=== PATIENT | female | born 1950 | race American Indian/Alaskan Native ===

== ENCOUNTER 2021-02-13 12:46 | Inpatient (IN) | payer MEDICARE ==
--- NOTE | 2021-02-13 13:11 | Emergency Department Report ---
HPI - General Chief Complaint: Altered Mental Status PUI?: Yes Time Seen by Provider: 02/13/21 12:58 - HPI HPI: 70-year-old female with unknown past medical history brought in by EMS after she was found unresponsive by her family. According to the EMS report, she was found foaming at the mouth and was unresponsive. When EMS arrived, the patient had shallow breathing and was noted to have constricted pupils. Her initial oxygen saturation was 50% but with bagging improved to the 80s with the highest sat being 86%. She was given 2 mg of IV Narcan with no response whatsoever. They continued bagging the patient and brought her to our emergency department her fingerstick blood glucose for EMS was 213. She was noted to have normal heart rate and blood pressure. Further details of the HPI are severely limited due to the patient's current clinical condition. ED Past Medical Hx - Medications Home Medications: Home Medications Medication Instructions Recorded Confirmed Last Taken Type Insulin NPH Hum/Reg Insulin Hm See Protocol SQ DAILY 02/13/21 02/13/21 Unknown History [Novolin 70-30 100 Unit/ml Vial] metFORMIN [Glucophage] 500 mg PO TID 02/13/21 02/13/21 Unknown History ED Review of Systems ROS: Stated complaint: UNRESPONSIVE/AMS Other details as noted in HPI Comment: Unobtainable due to pts medical conditions Physical Exam - Physical Exam Physical Exam: GENERAL: Morbidly obese female. Unresponsive and obtunded HEAD: Normocephalic. No obvious signs of trauma. ENT: Dry mucous membranes. Bag valve mask applied EYES: Pupils are constricted bilaterally but remain reactive. NECK: Trachea is midline. LUNGS: Bilateral breath sounds with [id number] ventilation. There are scattered rales throughout. CARDIOVASCULAR: Regular rate and rhythm. 3/6 systolic murmur VASCULAR: Cap refill < 2 seconds ABDOMEN: Abdomen is soft and nondistended. There is central adiposity SKIN: Skin is warm and dry NEURO: Patient is obtunded and unresponsive even to pain. GCS is 3 MUSCULOSKELETAL: No obvious deformities. ED Medical Decision Making - Lab Data Result diagrams: 02/13/21 16:27 02/13/21 13:36 Lab Results 02/13/21 02/13/21 02/13/21 Range/Units 13:28 13:28 13:28 WBC 5.8 (4.5-11.0) K/mm3 RBC 4.67 (3.65-5.03) M/mm3 Hgb 11.8 (10.1-14.3) gm/dl Hct 37.0 (30.3-42.9) % MCV 79 (79-97) fl MCH 25 L (28-32) pg MCHC 32 (30-34) % RDW 15.7 H (13.2-15.2) % Plt Count 184 (140-440) K/mm3 Lymph % (Auto) 5.9 L (13.4-35.0) % Carbon % (Auto) 4.5 (0.0-7.3) % Eos % (Auto) 0.0 (0.0-4.3) % Baso % (Auto) 0.3 (0.0-1.8) % Lymph # (Auto) 0.3 L (1.2-5.4) K/mm3 Carbon # (Auto) 0.3 (0.0-0.8) K/mm3 Eos # (Auto) 0.0 (0.0-0.4) K/mm3 Baso # (Auto) 0.0 (0.0-0.1) K/mm3 Seg Neutrophils % 89.3 H (40.0-70.0) % Seg Neutrophils # 5.2 (1.8-7.7) K/mm3 PT 15.0 H (12.2-14.9) Sec. INR 1.13 (0.87-1.13) APTT 23.8 L (24.2-36.6) Sec. D-Dimer 478.95 H (0-234) ng/mlDDU ABG pH (7.320-7.450) POC ABG pCO2 (32.0-48.0) mmHg POC ABG pO2 (83-108) mmHg POC ABG HCO3 ABG O2 Saturation (0-100) POC ABG Base Excess ABG Hemoglobin (12.0-17.5) ABG Oxyhemoglobin (94-98) ABG Methemoglobin (0.0-1.5) ABG Sodium (136.0-145.0) mmol/L ABG Potassium (3.40-4.50) mmol/L ABG Chloride (98-107) mmol/L ABG Glucose (65-95) mg/dL Carboxyhemoglobin (0.5-1.5) FiO2 % Sodium 139 (137-145) mmol/L Potassium 5.1 H (3.6-5.0) mmol/L Chloride 95.7 L (98-107) mmol/L Carbon Dioxide 23 (22-30) mmol/L Anion Gap 25 mmol/L BUN 36 H (7-17) mg/dL Creatinine 2.0 H (0.6-1.2) mg/dL Estimated GFR 30 ml/min BUN/Creatinine Ratio 18 % Glucose 172 H (65-100) mg/dL Lactic Acid (0.7-2.0) mmol/L Calcium 7.5 L (8.4-10.2) mg/dL Magnesium (1.7-2.3) mg/dL Ferritin (10.0-200.0) ng/mL Total Bilirubin 0.40 (0.1-1.2) mg/dL Direct Bilirubin < 0.2 (0-0.2) mg/dL Indirect Bilirubin 0.2 mg/dL AST 81 H (5-40) units/L ALT 25 (7-56) units/L Alkaline Phosphatase 42 (35-129) units/L Ammonia (25-60) umol/L Lactate Dehydrogenase (91-180) units/L Total Creatine Kinase 1572 H (30-135) units/L Troponin T 0.020 (0.00-0.029) ng/mL C-Reactive Protein (0.00-1.30) mg/dL NT-Pro-B Natriuret Pep (0-900) pg/mL Total Protein 8.1 (6.3-8.2) g/dL Albumin 3.4 L (3.9-5) g/dL Albumin/Globulin Ratio 0.7 % Lipase (13-60) units/L Procalcitonin (<0.15) ng/mL TSH (0.270-4.200) mlU/mL Arterial Blood Glucose (65-95) mg/dL Arterial Blood Ionized Calcium (4.6-5.3) mg/dL Salicylates (2.8-20.0) mg/dL Acetaminophen (10.0-30.0) ug/mL Plasma/Serum Alcohol (0-0.07) % Blood Type Antibody Screen 08/22/21 08/22/21 08/22/21 Range/Units 13:28 13:28 13:28 WBC (4.5-11.0) K/mm3 RBC (3.65-5.03) M/mm3 Hgb (10.1-14.3) gm/dl Hct (30.3-42.9) % MCV (79-97) fl MCH (28-32) pg MCHC (30-34) % RDW (13.2-15.2) % Plt Count (140-440) K/mm3 Lymph % (Auto) (13.4-35.0) % Carbon % (Auto) (0.0-7.3) % Eos % (Auto) (0.0-4.3) % Baso % (Auto) (0.0-1.8) % Lymph # (Auto) (1.2-5.4) K/mm3 Carbon # (Auto) (0.0-0.8) K/mm3 Eos # (Auto) (0.0-0.4) K/mm3 Baso # (Auto) (0.0-0.1) K/mm3 Seg Neutrophils % (40.0-70.0) % Seg Neutrophils # (1.8-7.7) K/mm3 PT (12.2-14.9) Sec. INR (0.87-1.13) APTT (24.2-36.6) Sec. D-Dimer (0-234) ng/mlDDU ABG pH (7.320-7.450) POC ABG pCO2 (32.0-48.0) mmHg POC ABG pO2 (83-108) mmHg POC ABG HCO3 ABG O2 Saturation (0-100) POC ABG Base Excess ABG Hemoglobin (12.0-17.5) ABG Oxyhemoglobin (94-98) ABG Methemoglobin (0.0-1.5) ABG Sodium (136.0-145.0) mmol/L ABG Potassium (3.40-4.50) mmol/L ABG Chloride (98-107) mmol/L ABG Glucose (65-95) mg/dL Carboxyhemoglobin (0.5-1.5) FiO2 % Sodium (137-145) mmol/L Potassium (3.6-5.0) mmol/L Chloride (98-107) mmol/L Carbon Dioxide (22-30) mmol/L Anion Gap mmol/L BUN (7-17) mg/dL Creatinine (0.6-1.2) mg/dL Estimated GFR ml/min BUN/Creatinine Ratio % Glucose (65-100) mg/dL Lactic Acid 6.50 H* (0.7-2.0) mmol/L Calcium (8.4-10.2) mg/dL Magnesium (1.7-2.3) mg/dL Ferritin (10.0-200.0) ng/mL Total Bilirubin (0.1-1.2) mg/dL Direct Bilirubin (0-0.2) mg/dL Indirect Bilirubin mg/dL AST (5-40) units/L ALT (7-56) units/L Alkaline Phosphatase (35-129) units/L Ammonia 48.0 (25-60) umol/L Lactate Dehydrogenase (91-180) units/L Total Creatine Kinase (30-135) units/L Troponin T (0.00-0.029) ng/mL C-Reactive Protein (0.00-1.30) mg/dL NT-Pro-B Natriuret Pep (0-900) pg/mL Total Protein (6.3-8.2) g/dL Albumin (3.9-5) g/dL Albumin/Globulin Ratio % Lipase (13-60) units/L Procalcitonin (<0.15) ng/mL TSH 8.530 H (0.270-4.200) mlU/mL Arterial Blood Glucose (65-95) mg/dL Arterial Blood Ionized Calcium (4.6-5.3) mg/dL Salicylates (2.8-20.0) mg/dL Acetaminophen (10.0-30.0) ug/mL Plasma/Serum Alcohol (0-0.07) % Blood Type Antibody Screen 02/13/21 02/13/21 02/13/21 Range/Units 13:28 13:28 13:28 WBC (4.5-11.0) K/mm3 RBC (3.65-5.03) M/mm3 Hgb (10.1-14.3) gm/dl Hct (30.3-42.9) % MCV (79-97) fl MCH (28-32) pg MCHC (30-34) % RDW (13.2-15.2) % Plt Count (140-440) K/mm3 Lymph % (Auto) (13.4-35.0) % Carbon % (Auto) (0.0-7.3) % Eos % (Auto) (0.0-4.3) % Baso % (Auto) (0.0-1.8) % Lymph # (Auto) (1.2-5.4) K/mm3 Carbon # (Auto) (0.0-0.8) K/mm3 Eos # (Auto) (0.0-0.4) K/mm3 Baso # (Auto) (0.0-0.1) K/mm3 Seg Neutrophils % (40.0-70.0) % Seg Neutrophils # (1.8-7.7) K/mm3 PT (12.2-14.9) Sec. INR (0.87-1.13) APTT (24.2-36.6) Sec. D-Dimer (0-234) ng/mlDDU ABG pH (7.320-7.450) POC ABG pCO2 (32.0-48.0) mmHg POC ABG pO2 (83-108) mmHg POC ABG HCO3 ABG O2 Saturation (0-100) POC ABG Base Excess ABG Hemoglobin (12.0-17.5) ABG Oxyhemoglobin (94-98) ABG Methemoglobin (0.0-1.5) ABG Sodium (136.0-145.0) mmol/L ABG Potassium (3.40-4.50) mmol/L ABG Chloride (98-107) mmol/L ABG Glucose (65-95) mg/dL Carboxyhemoglobin (0.5-1.5) FiO2 % Sodium (137-145) mmol/L Potassium (3.6-5.0) mmol/L Chloride (98-107) mmol/L Carbon Dioxide (22-30) mmol/L Anion Gap mmol/L BUN (7-17) mg/dL Creatinine (0.6-1.2) mg/dL Estimated GFR ml/min BUN/Creatinine Ratio % Glucose (65-100) mg/dL Lactic Acid (0.7-2.0) mmol/L Calcium (8.4-10.2) mg/dL Magnesium (1.7-2.3) mg/dL Ferritin (10.0-200.0) ng/mL Total Bilirubin (0.1-1.2) mg/dL Direct Bilirubin (0-0.2) mg/dL Indirect Bilirubin mg/dL AST (5-40) units/L ALT (7-56) units/L Alkaline Phosphatase (35-129) units/L Ammonia (25-60) umol/L Lactate Dehydrogenase (91-180) units/L Total Creatine Kinase (30-135) units/L Troponin T (0.00-0.029) ng/mL C-Reactive Protein (0.00-1.30) mg/dL NT-Pro-B Natriuret Pep (0-900) pg/mL Total Protein (6.3-8.2) g/dL Albumin (3.9-5) g/dL Albumin/Globulin Ratio % Lipase (13-60) units/L Procalcitonin (<0.15) ng/mL TSH (0.270-4.200) mlU/mL Arterial Blood Glucose (65-95) mg/dL Arterial Blood Ionized Calcium (4.6-5.3) mg/dL Salicylates < 0.3 L (2.8-20.0) mg/dL Acetaminophen 5.0 L (10.0-30.0) ug/mL Plasma/Serum Alcohol < 0.01 (0-0.07) % Blood Type Antibody Screen 02/13/21 02/13/21 02/13/21 Range/Units 13:28 13:31 13:36 WBC (4.5-11.0) K/mm3 RBC (3.65-5.03) M/mm3 Hgb (10.1-14.3) gm/dl Hct (30.3-42.9) % MCV (79-97) fl MCH (28-32) pg MCHC (30-34) % RDW (13.2-15.2) % Plt Count (140-440) K/mm3 Lymph % (Auto) (13.4-35.0) % Carbon % (Auto) (0.0-7.3) % Eos % (Auto) (0.0-4.3) % Baso % (Auto) (0.0-1.8) % Lymph # (Auto) (1.2-5.4) K/mm3 Carbon # (Auto) (0.0-0.8) K/mm3 Eos # (Auto) (0.0-0.4) K/mm3 Baso # (Auto) (0.0-0.1) K/mm3 Seg Neutrophils % (40.0-70.0) % Seg Neutrophils # (1.8-7.7) K/mm3 PT (12.2-14.9) Sec. INR (0.87-1.13) APTT (24.2-36.6) Sec. D-Dimer (0-234) ng/mlDDU ABG pH (7.320-7.450) POC ABG pCO2 (32.0-48.0) mmHg POC ABG pO2 (83-108) mmHg POC ABG HCO3 ABG O2 Saturation (0-100) POC ABG Base Excess ABG Hemoglobin (12.0-17.5) ABG Oxyhemoglobin (94-98) ABG Methemoglobin (0.0-1.5) ABG Sodium (136.0-145.0) mmol/L ABG Potassium (3.40-4.50) mmol/L ABG Chloride (98-107) mmol/L ABG Glucose (65-95) mg/dL Carboxyhemoglobin (0.5-1.5) FiO2 % Sodium (137-145) mmol/L Potassium (3.6-5.0) mmol/L Chloride (98-107) mmol/L Carbon Dioxide (22-30) mmol/L Anion Gap mmol/L BUN (7-17) mg/dL Creatinine (0.6-1.2) mg/dL Estimated GFR ml/min BUN/Creatinine Ratio % Glucose 176 H (65-100) mg/dL Lactic Acid (0.7-2.0) mmol/L Calcium (8.4-10.2) mg/dL Magnesium 2.60 H (1.7-2.3) mg/dL Ferritin (10.0-200.0) ng/mL Total Bilirubin (0.1-1.2) mg/dL Direct Bilirubin (0-0.2) mg/dL Indirect Bilirubin mg/dL AST (5-40) units/L ALT (7-56) units/L Alkaline Phosphatase (35-129) units/L Ammonia (25-60) umol/L Lactate Dehydrogenase 713 H (91-180) units/L Total Creatine Kinase (30-135) units/L Troponin T (0.00-0.029) ng/mL C-Reactive Protein 30.70 H (0.00-1.30) mg/dL NT-Pro-B Natriuret Pep (0-900) pg/mL Total Protein (6.3-8.2) g/dL Albumin (3.9-5) g/dL Albumin/Globulin Ratio % Lipase 35 (13-60) units/L Procalcitonin (<0.15) ng/mL TSH (0.270-4.200) mlU/mL Arterial Blood Glucose (65-95) mg/dL Arterial Blood Ionized Calcium (4.6-5.3) mg/dL Salicylates (2.8-20.0) mg/dL Acetaminophen (10.0-30.0) ug/mL Plasma/Serum Alcohol (0-0.07) % Blood Type B POSITIVE Antibody Screen Negative 02/13/21 02/13/21 02/13/21 Range/Units 13:36 13:36 13:36 WBC (4.5-11.0) K/mm3 RBC (3.65-5.03) M/mm3 Hgb (10.1-14.3) gm/dl Hct (30.3-42.9) % MCV (79-97) fl MCH (28-32) pg MCHC (30-34) % RDW (13.2-15.2) % Plt Count (140-440) K/mm3 Lymph % (Auto) (13.4-35.0) % Carbon % (Auto) (0.0-7.3) % Eos % (Auto) (0.0-4.3) % Baso % (Auto) (0.0-1.8) % Lymph # (Auto) (1.2-5.4) K/mm3 Carbon # (Auto) (0.0-0.8) K/mm3 Eos # (Auto) (0.0-0.4) K/mm3 Baso # (Auto) (0.0-0.1) K/mm3 Seg Neutrophils % (40.0-70.0) % Seg Neutrophils # (1.8-7.7) K/mm3 PT (12.2-14.9) Sec. INR (0.87-1.13) APTT (24.2-36.6) Sec. D-Dimer (0-234) ng/mlDDU ABG pH (7.320-7.450) POC ABG pCO2 (32.0-48.0) mmHg POC ABG pO2 (83-108) mmHg POC ABG HCO3 ABG O2 Saturation (0-100) POC ABG Base Excess ABG Hemoglobin (12.0-17.5) ABG Oxyhemoglobin (94-98) ABG Methemoglobin (0.0-1.5) ABG Sodium (136.0-145.0) mmol/L ABG Potassium (3.40-4.50) mmol/L ABG Chloride (98-107) mmol/L ABG Glucose (65-95) mg/dL Carboxyhemoglobin (0.5-1.5) FiO2 % Sodium (137-145) mmol/L Potassium (3.6-5.0) mmol/L Chloride (98-107) mmol/L Carbon Dioxide (22-30) mmol/L Anion Gap mmol/L BUN (7-17) mg/dL Creatinine (0.6-1.2) mg/dL Estimated GFR ml/min BUN/Creatinine Ratio % Glucose (65-100) mg/dL Lactic Acid (0.7-2.0) mmol/L Calcium (8.4-10.2) mg/dL Magnesium (1.7-2.3) mg/dL Ferritin 1667.0 H (10.0-200.0) ng/mL Total Bilirubin (0.1-1.2) mg/dL Direct Bilirubin (0-0.2) mg/dL Indirect Bilirubin mg/dL AST (5-40) units/L ALT (7-56) units/L Alkaline Phosphatase (35-129) units/L Ammonia (25-60) umol/L Lactate Dehydrogenase (91-180) units/L Total Creatine Kinase (30-135) units/L Troponin T (0.00-0.029) ng/mL C-Reactive Protein (0.00-1.30) mg/dL NT-Pro-B Natriuret Pep 3473 H (0-900) pg/mL Total Protein (6.3-8.2) g/dL Albumin (3.9-5) g/dL Albumin/Globulin Ratio % Lipase (13-60) units/L Procalcitonin 1.10 (<0.15) ng/mL TSH (0.270-4.200) mlU/mL Arterial Blood Glucose (65-95) mg/dL Arterial Blood Ionized Calcium (4.6-5.3) mg/dL Salicylates (2.8-20.0) mg/dL Acetaminophen (10.0-30.0) ug/mL Plasma/Serum Alcohol (0-0.07) % Blood Type Antibody Screen 02/13/21 Range/Units 14:18 WBC (4.5-11.0) K/mm3 RBC (3.65-5.03) M/mm3 Hgb (10.1-14.3) gm/dl Hct (30.3-42.9) % MCV (79-97) fl MCH (28-32) pg MCHC (30-34) % RDW (13.2-15.2) % Plt Count (140-440) K/mm3 Lymph % (Auto) (13.4-35.0) % Carbon % (Auto) (0.0-7.3) % Eos % (Auto) (0.0-4.3) % Baso % (Auto) (0.0-1.8) % Lymph # (Auto) (1.2-5.4) K/mm3 Carbon # (Auto) (0.0-0.8) K/mm3 Eos # (Auto) (0.0-0.4) K/mm3 Baso # (Auto) (0.0-0.1) K/mm3 Seg Neutrophils % (40.0-70.0) % Seg Neutrophils # (1.8-7.7) K/mm3 PT (12.2-14.9) Sec. INR (0.87-1.13) APTT (24.2-36.6) Sec. D-Dimer (0-234) ng/mlDDU ABG pH 7.528 H (7.320-7.450) POC ABG pCO2 33.5 (32.0-48.0) mmHg POC ABG pO2 49.8 L (83-108) mmHg POC ABG HCO3 27.2 ABG O2 Saturation 86.8 (0-100) POC ABG Base Excess 4.7 ABG Hemoglobin 11.8 L (12.0-17.5) ABG Oxyhemoglobin 85.8 L (94-98) ABG Methemoglobin 0.3 (0.0-1.5) ABG Sodium 138.8 (136.0-145.0) mmol/L ABG Potassium 4.1 (3.40-4.50) mmol/L ABG Chloride 99.0 (98-107) mmol/L ABG Glucose 180 H (65-95) mg/dL Carboxyhemoglobin 0.8 (0.5-1.5) FiO2 % 100.0 Sodium (137-145) mmol/L Potassium (3.6-5.0) mmol/L Chloride (98-107) mmol/L Carbon Dioxide (22-30) mmol/L Anion Gap mmol/L BUN (7-17) mg/dL Creatinine (0.6-1.2) mg/dL Estimated GFR ml/min BUN/Creatinine Ratio % Glucose (65-100) mg/dL Lactic Acid (0.7-2.0) mmol/L Calcium (8.4-10.2) mg/dL Magnesium (1.7-2.3) mg/dL Ferritin (10.0-200.0) ng/mL Total Bilirubin (0.1-1.2) mg/dL Direct Bilirubin (0-0.2) mg/dL Indirect Bilirubin mg/dL AST (5-40) units/L ALT (7-56) units/L Alkaline Phosphatase (35-129) units/L Ammonia (25-60) umol/L Lactate Dehydrogenase (91-180) units/L Total Creatine Kinase (30-135) units/L Troponin T (0.00-0.029) ng/mL C-Reactive Protein (0.00-1.30) mg/dL NT-Pro-B Natriuret Pep (0-900) pg/mL Total Protein (6.3-8.2) g/dL Albumin (3.9-5) g/dL Albumin/Globulin Ratio % Lipase (13-60) units/L Procalcitonin (<0.15) ng/mL TSH (0.270-4.200) mlU/mL Arterial Blood Glucose 180 H (65-95) mg/dL Arterial Blood Ionized Calcium 3.7 L (4.6-5.3) mg/dL Salicylates (2.8-20.0) mg/dL Acetaminophen (10.0-30.0) ug/mL Plasma/Serum Alcohol (0-0.07) % Blood Type Antibody Screen - Radiology Data CHEST 1 VIEW INDICATION / CLINICAL INFORMATION: low sats, intubated. COMPARISON: None available. FINDINGS: SUPPORT DEVICES: Endotracheal tube with tip approximately 4.5 cm above the solange. HEART / MEDIASTINUM: No significant abnormality. LUNGS / PLEURA: Diffuse bilateral airspace opacities, most significantly involving the mid and lower lung zones. No pneumothorax. ADDITIONAL FINDINGS: No significant additional findings. IMPRESSION: Endotracheal tube as above. Diffuse bilateral pneumonia. Signer Name: Simon Dominguez MD Signed: 02/13/2021 12:25 PM Workstation Name: [id number] CHEST 1 VIEW INDICATION / CLINICAL INFORMATION: Central line placement. COMPARISON: Earlier same day FINDINGS: SUPPORT DEVICES: Right IJ central venous catheter noted with tip in the mid SVC. HEART / MEDIASTINUM: Stable. LUNGS / PLEURA: Bilateral airspace disease, unchanged. No pneumothorax. ADDITIONAL FINDINGS: No significant additional findings. IMPRESSION: Right IJ central venous catheter noted with tip in the mid SVC. Otherwise no change. Signer Name: Simon Dominguez MD Signed: 02/13/2021 3:33 PM Workstation Name: [id number] - Medical Decision Making 70-year-old female with unknown past medical history is brought in by EMS after she was found unresponsive by family member. Apparently she was foaming at the mouth. When EMS arrived, the patient's oxygen saturations were in the 50s. She had constricted pupils and was given 2 mg of IV Narcan without response. Because of very shallow breaths, the patient was ventilated using a bag valve mask ventilation but her maximum oxygen saturation was in the 80s. Fingerstick blood glucose was 213. Further history is unknown at this time. Upon arrival to the emergency department, the patient is satting in the high 70s to low 80s with [id number] ventilation. Her GCS is 3 as she is obtunded and completely unresponsive even to pain. Her pupils are constricted bilaterally but still reactive. She has normal blood pressure and heart rate. Given her respiratory status I immediately moved for emergency intubation. After intubation the patient continued to have oxygen saturations in the low 80s. Given that there is a very unclear history, I have ordered very broad set of labs including the sepsis order set with cultures, toxicology labs, as well as the COVID-19 order set. Once stabilized the patient will undergo CT of the head to assess for evidence of intracranial hemorrhage versus other intracranial abnormalities, CTA of the chest/abdomen/pelvis to assess for evidence of PE, abdominal infection or other intrathoracic or intra-abdominal catastrophe. We will give broad- spectrum vancomycin, Zosyn, and azithromycin as well as 30 mL/kg of IV fluid based on her ideal body weight of 59 kg. ABG is pending. Unfortunately, even on the ventilator with maximum PEEP, the patient's oxygen saturation continues to be in the 80s to low 90s. At 1:30 PM the patient's oxygen saturation has improved slightly to the low 90s. Chest x-ray appears to show bilateral infiltrates consistent with bilateral pneumonia. I spoke to the patient's son and daughter in the waiting room. The patient's son, Michele was the one who initially found the patient this morning. His phone number is [phone]. The patient's daughter, Carolin can be reached at [phone]. They provided further history saying that the patient has been suffering from a URI for the past week with only mild symptoms including cough, nasal congestion, and some body aches. She was okay this morning when the patient's son checked on her but later in the day when he went to check on her she was completely unresponsive and foaming at the mouth with shallow breathing. At this point 911 was called. Her only medical history is hypertension and hypothyroidism. She also has a history of a systolic murmur. She is not vaccinated against COVID-19. They were updated about the patient's very critical condition and possibility of her given her low oxygen saturation on the ventilator. They did state that the patient is full code and understood her critical condition. The patient's labs have resulted and reveal SONIA with creatinine of 2.0 and BUN of 36. Lactate is elevated at 6.5. CK is elevated at 1572. TSH is elevated at 8.53. Calcium is low at 7.5. I have ordered calcium repletion. The patient will receive 3 L of IV fluid. At 2:47 PM, the patient's blood pressure was noted to be severely low in the 50s over 30s. However, I discovered that the patient's IV fluids had not yet been initiated. We pressure bagged 2 L of IV fluid with subsequent improvement in her blood pressure. If necessary we will start pressors for her blood pressure. Unfortunately, the patient remains with oxygen saturations in the 80s on the vent and she is not stable to go to the CT scanner. Nonetheless given my suspicion for Covid I have ordered 6 mg of IV Decadron. I have consulted the coyote hunter for further recommendations regarding the vent and also to discuss the possibility of anticoagulation given the possibility of pulmonary embolism. ABG shows what appears to be a mixed acid-base disorder with respiratory alkalosis and hypoxemia with pH of 7.52, PCO2 of 33.5, and PO2 of 49.8. This is despite being on 100% FiO2 and PEEP of 18. At 2:51 PM I spoke with Dr. Blood regarding the case. He came down to assess the patient himself and has made changes to her ventilator settings. We discussed the possibility of anticoagulation and he agrees that the risks of anticoagulating the patient without head CT are outweighed by the benefits of possible treatment of pulmonary embolism which could be causing her persistent hypoxemia and low blood pressure. He will place orders for anticoagulation. At this time I also spoke with Dr. Gandhi, the on-call hospitalist regarding the case. He accepts the patient for admission and will assume care. Shortly thereafter at about 3:30 PM, the patient was noted to still be with low blood pressure despite initial improvement. Levophed has been ordered. Dr. Gandhi came down to assess the patient himself and says he will speak to the patient's family further and place a central line given that she is requiring vasopressors. Critical Care Time: Yes Critical care time in (mins) excluding proc time.: 85 Critical care attestation.: If time is entered above; I have spent that time in minutes in the direct care of this critically ill patient, excluding procedure time. "Care time was spent in the evaluation/assessment, work-up, and management of acute hypoxic respiratory failure requiring intubation and mechanical ventilation, septic shock, suspected COVID-19 pneumonia, kidney failure, and persistent hypoxemia requiring sepsis fluids and broad-spectrum antibiotics, vasopressors, interpretation of ABGs, x-rays, consultation with specialist, vent management, and multiple reevaluations and reassessments. ED Disposition Clinical Impression: Suspected COVID-19 virus infection, Septic shock, Acute hypoxemic respiratory failure, Toxic metabolic encephalopathy, Acute kidney injury (SONIA) with acute tubular necrosis (ATN) Pneumonia Qualifiers: Pneumonia type: due to unspecified organism Laterality: unspecified laterality Lung location: unspecified part of lung Qualified Code(s): J18.9 - Pneumonia, unspecified organism Disposition: 09 ADMITTED INPATIENT Is pt being admited?: Yes Condition: Critical
--- NOTE | 2021-02-13 13:30 | XRay Report ---
CHEST 1 VIEW INDICATION / CLINICAL INFORMATION: low sats, intubated. COMPARISON: None available. FINDINGS: SUPPORT DEVICES: Endotracheal tube with tip approximately 4.5 cm above the solange. HEART / MEDIASTINUM: No significant abnormality. LUNGS / PLEURA: Diffuse bilateral airspace opacities, most significantly involving the mid and lower lung zones. No pneumothorax. ADDITIONAL FINDINGS: No significant additional findings. IMPRESSION: Endotracheal tube as above. Diffuse bilateral pneumonia. Signer Name: Simon Dominguez MD Signed: 02/13/2021 1:25 PM Workstation Name: [id number]
[2021-02-13] MEDS ORDERED: SODIUM CHLORIDE 0.9% 1000 ML 1,000 ML IV ONE (13:53)
[2021-02-13 13:56] LABS: Basophils % (Auto) 0.3 % (0.0-1.8); Hemoglobin 11.8 gm/dl (10.1-14.3); Lymphocytes # (Auto) 0.3 K/mm3 (1.2-5.4); Lymphocytes % (Auto) 5.9 % (13.4-35.0); Mean Corpuscular HGB Conc 32 % (30-34); Mean Corpuscular Volume 79 fl (79-97); Monocytes # (Auto) 0.3 K/mm3 (0.0-0.8); Monocytes % (Auto) 4.5 % (0.0-7.3); Platelet Count 184 K/mm3 (140-440); Red Blood Count 4.67 M/mm3 (3.65-5.03); Red Cell Distribution Width 15.7 % (13.2-15.2)
[2021-02-13 14:15] LABS: C-Reactive Protein 30.7 mg/dL (0.00-1.30)
[2021-02-13 14:19] LABS: Alanine Aminotransferase 25 units/L (7-56); Albumin 3.4 g/dL (3.9-5); BUN/Creatinine Ratio 18; Blood Urea Nitrogen 36 mg/dL (7-17); Calcium 7.5 mg/dL (8.4-10.2); Hemolysis Index 121
[2021-02-13 14:35] LABS: INR 1.13 (0.87-1.13)
[2021-02-13 14:36] LABS: Partial Thromboplastin Time 23.8 Sec. (24.2-36.6)
[2021-02-13 14:37] LABS: Bilirubin,Direct < 0.2 mg/dL (0-0.2)
[2021-02-13] MEDS ORDERED: NORepinephrine/NS 4 MG-250 ML 4 MG/250 ML BAG IV ONE ×2 (14:40→16:34)
[2021-02-13] MEDS: SODIUM CHLORIDE 0.9% 1000 ML 1,000 ML IV ONE ×2 (14:50→17:38)
[2021-02-13] MEDS ORDERED: PIPERACIL/TAZOBACTA 4.5/NS 100 4.5 GM/100 ML VIAL IV ONE ×2 (15:00→18:06)
[2021-02-13] MEDS ORDERED: VANCOMYCIN 2,000 MG in SODIUM CHLORIDE 0.9% 500 ML 500 ML IV ONE (15:00)
[2021-02-13] MEDS ORDERED: dexAMETHasone 4 MG/ML VIAL IV ONE (15:00)
[2021-02-13] MEDS ORDERED: AZITHROMYCIN/NS 500 MG/250 ML 500 MG/250 ML BAG IV ONE ×2 (15:00→21:00)
--- NOTE | 2021-02-13 15:20 | History and Physical Report ---
History of Present Illness Chief complaint: Unresponsive History of present illness: 70 YO Female with Obesity Hypoventilation Syndrome, HTN, Hypothyroidism presents to ED for evaluation. Patient is intubated and on ventilatory support at the time my evaluation is unable to write history. Patient history provided by EMS staff, ED staff, as well as the patient family was made available by telephone for interview. As per daughter the patient was in her usual state of health around bedtime which was 2100 hrs. The patient was found down and unresponsive this morning. EMS was notified and upon arrival the patient was found to be in respiratory distress with a pulse oximetry of 50%. The patient was transported to [facility] for further care and evaluation of the aforementioned symptoms. The patient was seen and evaluated in the emergency department. All lab and imaging studies reviewed. The patient was found to have a pulse oximetry in the 60s which is consistent with acute hypoxemic respiratory failure. The patient was deemed unable to protect her airway and was intubated and placed on ventilatory support. The patient was found to have a blood pressure of 69/33. The patient was also found to have pneumonia on chest x-ray which was complicated by septic shock, metabolic acidosis, toxic metabolic en cephalopathy, acute kidney injury. Patient admitted to ICU due to multiple organ system failure. Critical care care team consulted in ED. Patient initiated on sepsis protocol as well as coronavirus protocol. Patient found to have poor prognosis. Advanced care planning conducted in ED. No prior admission for review. No medication listed at time of admission for reconciliation. Past History Past Medical History: hypertension, hypothyroidism Past Surgical History: No surgical history, Other (Reviewed) Social history: single, lives with family. denies: smoking, alcohol abuse, prescription drug abuse Family history: diabetes, hypertension Medications and Allergies Allergies Allergy/AdvReac Type Severity Reaction Status Date / Time Penicillins AdvReac Unknown Verified 02/13/21 15:39 Home Medications Medication Instructions Recorded Confirmed Last Taken Type Insulin NPH Hum/Reg Insulin Hm See Protocol SQ DAILY 02/13/21 02/13/21 Unknown History [Novolin 70-30 100 Unit/ml Vial] metFORMIN [Glucophage] 500 mg PO TID 02/13/21 02/13/21 Unknown History Active Meds: Active Medications Vancomycin HCl 2,000 mg/ (Sodium Chloride) 540 mls @ 270 mls/hr IV ONCE ONE; Protocol Stop: 02/13/21 16:59 Piperacillin Sod/Tazobactam Sod (Zosyn/Ns 4.5gm/100ml) 4.5 gm in 100 mls @ 200 mls/hr IV ONCE ONE; Protocol Stop: 02/13/21 15:29 Sodium Chloride (Nacl 0.9% 1000 Ml) 1,000 mls @ 999 mls/hr IV BOLUS ONE Stop: 02/13/21 15:45 Last Admin: 02/13/21 14:50 Dose: 999 mls/hr Documented by: Azithromycin (Zithromax/Ns) 500 mg in 250 mls @ 250 mls/hr IV ONCE ONE; Protocol Stop: 02/13/21 15:59 Calcium Chloride 1,000 mg/ (Sodium Chloride) 110 mls @ 660 mls/hr IV ONCE ONE Stop: 02/13/21 16:09 Review of Systems ROS unobtainable: due to endotracheal tube, due to mental status Exam - Constitutional Vitals: Temp Pulse Resp BP Pulse Ox 99.4 F 59 L 20 69/33 83 L 02/13/21 14:13 02/13/21 15:06 02/13/21 15:06 02/13/21 15:06 02/13/21 15:06 General appearance: Present: severe distress, obese - EENT Eyes: Present: miosis ENT: hearing decreased - Neck Neck: Present: supple, normal ROM - Respiratory Respiratory effort: labored, accessory muscle use Respiratory: bilateral: diminished, rhonchi - Cardiovascular Heart Sounds: Present: S1 & S2. Absent: rub, click - Extremities Extremities: pulses symmetrical Extremity abnormal: edema Peripheral Pulses: abnormal (Capillary refill greater than 3.5 seconds) - Abdominal General gastrointestinal: Present: soft, non-tender, non-distended Female genitourinary: Present: normal - Integumentary Integumentary: Present: clear, dry, clammy, decreased turgor - Musculoskeletal Musculoskeletal: generalized weakness - Psychiatric Psychiatric: no appropriate mood/affect, no intact judgment & insight, no memory intact - Neurologic Neurologic: CNII-XII intact, no focal deficits, moves all extremities, no gait normal HEART Score - HEART Score Troponin: Troponin T 0.020 ng/mL (0.00-0.029) 02/13/21 13:28 Results - Labs CBC & Chem 7: 02/13/21 13:28 02/13/21 13:36 Labs: Abnormal lab results 02/13/21 02/13/21 02/13/21 Range/Units 13:28 13:28 13:28 MCH 25 L (28-32) pg RDW 15.7 H (13.2-15.2) % Lymph % (Auto) 5.9 L (13.4-35.0) % Lymph # (Auto) 0.3 L (1.2-5.4) K/mm3 Seg Neutrophils % 89.3 H (40.0-70.0) % PT 15.0 H (12.2-14.9) Sec. APTT 23.8 L (24.2-36.6) Sec. D-Dimer 478.95 H (0-234) ng/mlDDU ABG pH (7.320-7.450) POC ABG pO2 (83-108) mmHg ABG Hemoglobin (12.0-17.5) ABG Oxyhemoglobin (94-98) ABG Glucose (65-95) mg/dL Potassium 5.1 H (3.6-5.0) mmol/L Chloride 95.7 L (98-107) mmol/L BUN 36 H (7-17) mg/dL Creatinine 2.0 H (0.6-1.2) mg/dL Glucose 172 H (65-100) mg/dL Lactic Acid (0.7-2.0) mmol/L Calcium 7.5 L (8.4-10.2) mg/dL Magnesium (1.7-2.3) mg/dL Ferritin (10.0-200.0) ng/mL AST 81 H (5-40) units/L Lactate Dehydrogenase (91-180) units/L Total Creatine Kinase 1572 H (30-135) units/L C-Reactive Protein (0.00-1.30) mg/dL NT-Pro-B Natriuret Pep (0-900) pg/mL Albumin 3.4 L (3.9-5) g/dL TSH (0.270-4.200) mlU/mL Arterial Blood Glucose (65-95) mg/dL Arterial Blood Ionized Calcium (4.6-5.3) mg/dL Salicylates (2.8-20.0) mg/dL Acetaminophen (10.0-30.0) ug/mL 08/22/21 08/22/21 08/22/21 Range/Units 13:28 13:28 13:28 MCH (28-32) pg RDW (13.2-15.2) % Lymph % (Auto) (13.4-35.0) % Lymph # (Auto) (1.2-5.4) K/mm3 Seg Neutrophils % (40.0-70.0) % PT (12.2-14.9) Sec. APTT (24.2-36.6) Sec. D-Dimer (0-234) ng/mlDDU ABG pH (7.320-7.450) POC ABG pO2 (83-108) mmHg ABG Hemoglobin (12.0-17.5) ABG Oxyhemoglobin (94-98) ABG Glucose (65-95) mg/dL Potassium (3.6-5.0) mmol/L Chloride (98-107) mmol/L BUN (7-17) mg/dL Creatinine (0.6-1.2) mg/dL Glucose (65-100) mg/dL Lactic Acid 6.50 H* (0.7-2.0) mmol/L Calcium (8.4-10.2) mg/dL Magnesium (1.7-2.3) mg/dL Ferritin (10.0-200.0) ng/mL AST (5-40) units/L Lactate Dehydrogenase (91-180) units/L Total Creatine Kinase (30-135) units/L C-Reactive Protein (0.00-1.30) mg/dL NT-Pro-B Natriuret Pep (0-900) pg/mL Albumin (3.9-5) g/dL TSH 8.530 H (0.270-4.200) mlU/mL Arterial Blood Glucose (65-95) mg/dL Arterial Blood Ionized Calcium (4.6-5.3) mg/dL Salicylates < 0.3 L (2.8-20.0) mg/dL Acetaminophen (10.0-30.0) ug/mL 02/13/21 02/13/21 02/13/21 Range/Units 13:28 13:28 13:36 MCH (28-32) pg RDW (13.2-15.2) % Lymph % (Auto) (13.4-35.0) % Lymph # (Auto) (1.2-5.4) K/mm3 Seg Neutrophils % (40.0-70.0) % PT (12.2-14.9) Sec. APTT (24.2-36.6) Sec. D-Dimer (0-234) ng/mlDDU ABG pH (7.320-7.450) POC ABG pO2 (83-108) mmHg ABG Hemoglobin (12.0-17.5) ABG Oxyhemoglobin (94-98) ABG Glucose (65-95) mg/dL Potassium (3.6-5.0) mmol/L Chloride (98-107) mmol/L BUN (7-17) mg/dL Creatinine (0.6-1.2) mg/dL Glucose 176 H (65-100) mg/dL Lactic Acid (0.7-2.0) mmol/L Calcium (8.4-10.2) mg/dL Magnesium 2.60 H (1.7-2.3) mg/dL Ferritin (10.0-200.0) ng/mL AST (5-40) units/L Lactate Dehydrogenase 713 H (91-180) units/L Total Creatine Kinase (30-135) units/L C-Reactive Protein 30.70 H (0.00-1.30) mg/dL NT-Pro-B Natriuret Pep (0-900) pg/mL Albumin (3.9-5) g/dL TSH (0.270-4.200) mlU/mL Arterial Blood Glucose (65-95) mg/dL Arterial Blood Ionized Calcium (4.6-5.3) mg/dL Salicylates (2.8-20.0) mg/dL Acetaminophen 5.0 L (10.0-30.0) ug/mL 02/13/21 02/13/21 02/13/21 Range/Units 13:36 13:36 14:18 MCH (28-32) pg RDW (13.2-15.2) % Lymph % (Auto) (13.4-35.0) % Lymph # (Auto) (1.2-5.4) K/mm3 Seg Neutrophils % (40.0-70.0) % PT (12.2-14.9) Sec. APTT (24.2-36.6) Sec. D-Dimer (0-234) ng/mlDDU ABG pH 7.528 H (7.320-7.450) POC ABG pO2 49.8 L (83-108) mmHg ABG Hemoglobin 11.8 L (12.0-17.5) ABG Oxyhemoglobin 85.8 L (94-98) ABG Glucose 180 H (65-95) mg/dL Potassium (3.6-5.0) mmol/L Chloride (98-107) mmol/L BUN (7-17) mg/dL Creatinine (0.6-1.2) mg/dL Glucose (65-100) mg/dL Lactic Acid (0.7-2.0) mmol/L Calcium (8.4-10.2) mg/dL Magnesium (1.7-2.3) mg/dL Ferritin 1667.0 H (10.0-200.0) ng/mL AST (5-40) units/L Lactate Dehydrogenase (91-180) units/L Total Creatine Kinase (30-135) units/L C-Reactive Protein (0.00-1.30) mg/dL NT-Pro-B Natriuret Pep 3473 H (0-900) pg/mL Albumin (3.9-5) g/dL TSH (0.270-4.200) mlU/mL Arterial Blood Glucose 180 H (65-95) mg/dL Arterial Blood Ionized Calcium 3.7 L (4.6-5.3) mg/dL Salicylates (2.8-20.0) mg/dL Acetaminophen (10.0-30.0) ug/mL Assessment and Plan - Patient Problems (1) Septic shock Current Visit: Yes Status: Acute Plan to address problem: Sepsis protocol: CBC, CMP, IV antibiotic therapy, IV fluid resuscitation therapy, blood culture, serial lactic acid level, IV pressor support to maintain mean arterial pressure greater than equal 65, monitor urine output every shift, monitor fluid balance, The high probability of a clinically significant, sudden or life threatening deterioration of the [cardiac, pulmonary, neuro, renal, infectious disease, endocrine] system(s) required my full and direct attention, intervention and personal management. The aggregate critical care time was [95] minutes. This time is in addition to time spent performing reported procedures but includes the following: [x] Data Review and interpretation [x] Patient assessment and monitoring of vital signs [x] Documentation [x] Medication orders and management (2) Acute hypoxemic respiratory failure Current Visit: Yes Status: Acute Plan to address problem: Patient intubated and on ventilatory support. Wean vent as tolerated, daily spontaneous breathing trial, daily arterial blood gas, sedation holiday, critical care team consulted. (3) Toxic metabolic encephalopathy Current Visit: Yes Status: Acute Plan to address problem: CT head is ordered and is pending at time of admission. Patient is medically unstable at this time for transfer for further diagnostic imaging. Once medically stabilized we will transfer patient to CT for further diagnostic work- up. (4) Acute kidney injury (SONIA) with acute tubular necrosis (ATN) Current Visit: Yes Status: Acute Plan to address problem: IV fluid resuscitation therapy, monitor urine output every shift, BMP, repeat BMP in a.m. to monitor serum creatinine as well as GFR. (5) Metabolic acidosis Current Visit: Yes Status: Acute Plan to address problem: IV fluid resuscitation therapy, serial lactic acid level, BMP, repeat BMP as per protocol. (6) Pneumonia Current Visit: Yes Status: Acute Plan to address problem: Pneumonia protocol: Chest x-ray, CBC, CMP, IV antibiotic therapy, supplemental oxygen, supportive care. Blood culture. (7) Suspected COVID-19 virus infection Current Visit: Yes Status: Acute Plan to address problem: Coronavirus protocol: Supplemental oxygen, pulse oximetry, proposition while in bed, IV steroid therapy, IV antibiotic therapy, vitamin C therapy, vitamin D therapy, zinc therapy, prophylactic anticoagulation. (8) DVT prophylaxis Current Visit: Yes Status: Acute Plan to address problem: SCD to bilateral lower extremities while in bed, prophylactic anticoagulation (9) Advance care planning Current Visit: Yes Status: Acute Plan to address problem: Disease education conducted, care plan discussed, diagnoses discussed, prognosis discussed, patient is full code, patient daughter Cyndy Tinoco acknowledges poor prognosis as well as acknowledges understanding agreement with care plan. Contact phone #[phone]. +30 minutes.
[2021-02-13] MEDS ORDERED: ALBUTEROL 2.5 MG/3 ML NEBU IH PRN (15:22)
[2021-02-13] MEDS ORDERED: ACETAMINOPHEN 650 MG RECT SUPP PR PRN (15:22)
[2021-02-13] MEDS ORDERED: ACETAMINOPHEN 325 MG TAB PO PRN (15:22)
[2021-02-13] MEDS ORDERED: HYDROmorphone 1 MG/1 ML INJ IV PRN ×2 (15:22)
[2021-02-13] MEDS ORDERED: MORPHINE 2 MG/1 ML INJ IV PRN (15:22)
--- NOTE | 2021-02-13 15:51 | Consultation ---
History of Present Illness Consult date: 02/13/21 Requesting physician: ELVIRA MIRELES History of present illness: PCCM CONSULT NOTE (Full dictation # [id number]) Please see dictated notes for full details Medications and Allergies Allergies Allergy/AdvReac Type Severity Reaction Status Date / Time Penicillins AdvReac Unknown Verified 02/13/21 15:39 Home Medications Medication Instructions Recorded Confirmed Last Taken Type Insulin NPH Hum/Reg Insulin Hm See Protocol SQ DAILY 02/13/21 02/13/21 Unknown History [Novolin 70-30 100 Unit/ml Vial] metFORMIN [Glucophage] 500 mg PO TID 02/13/21 02/13/21 Unknown History Active Meds: Active Medications Acetaminophen (Acetaminophen 325 Mg Tab) 650 mg PO Q6H PRN PRN Reason: Pain, Mild (1-3) Acetaminophen (Acetaminophen 650 Mg Rect Supp) 650 mg NV Q6H PRN PRN Reason: Pain MILD(1-3)/Fever >100.5/ZACARIAS Albuterol (Albuterol 2.5 Mg/3 Ml Nebu) 2.5 mg IH Q3H PRN PRN Reason: Shortness Of Breath Ascorbic Acid (Ascorbic Acid 500 Mg Tab) 500 mg PO BID RUDY Cholecalciferol (Cholecalciferol (Vit D3) 1000 Unit (25 Mcg) Tab) 1,000 unit PO QDAY RUDY Heparin Sodium (Porcine) (Heparin 5,000 Unit/1 Ml Vial) 5,000 unit SUB-Q Q12HR RUDY Hydromorphone HCl (Hydromorphone 1 Mg/1 Ml Inj) 0.25 mg IV Q4H PRN PRN Reason: Pain, Moderate (4-6) Hydromorphone HCl (Hydromorphone 1 Mg/1 Ml Inj) 0.5 mg IV Q12H PRN PRN Reason: Pain , Severe (7-10) Vancomycin HCl 2,000 mg/ (Sodium Chloride) 540 mls @ 270 mls/hr IV ONCE ONE; Protocol Stop: 02/13/21 16:59 Azithromycin (Zithromax/Ns) 500 mg in 250 mls @ 250 mls/hr IV ONCE ONE; Protocol Stop: 02/13/21 15:59 Calcium Chloride 1,000 mg/ (Sodium Chloride) 110 mls @ 660 mls/hr IV ONCE ONE Stop: 02/13/21 16:09 Ceftriaxone Sodium (Rocephin/Ns 2 Gm/100 Ml) 2 gm in 100 mls @ 200 mls/hr IV Q24H RUDY; Protocol Azithromycin (Zithromax/Ns) 500 mg in 250 mls @ 250 mls/hr IV Q24H URDY; Protocol Methylprednisolone Sodium Succinate (Methylprednisolone Sod Succinate 40 Mg/1 Ml Inj) 40 mg IV Q8H RUDY Morphine Sulfate (Morphine 2 Mg/1 Ml Inj) 2 mg IV Q8H PRN PRN Reason: Pain, Moderate (4-6) Sodium Chloride (Sodium Chloride 0.9% 10 Ml Flush Syringe) 10 ml IV BID RUDY Sodium Chloride (Sodium Chloride 0.9% 10 Ml Flush Syringe) 10 ml IV PRN PRN PRN Reason: LINE FLUSH Sodium Chloride (Sodium Chloride 0.9% 1000 Ml Iv Soln) 3,330 ml 30 ml/kg (3330 ml) IV ONCE ONE Stop: 02/13/21 16:01 Zinc Sulfate (Zinc Sulfate 220 Mg Cap) 220 mg PO BID RUDY Physical Examination Vital signs: Vital Signs Pulse Resp Pulse Ox 67 20 89 02/13/21 13:38 02/13/21 13:38 02/13/21 13:38 Results - Laboratory Findings CBC and BMP: 02/13/21 13:28 02/13/21 13:36 ABG ABG pH 7.528 (7.320-7.450) H 02/13/21 14:18 POC ABG pCO2 33.5 mmHg (32.0-48.0) 02/13/21 14:18 POC ABG pO2 49.8 mmHg (83-108) L 02/13/21 14:18 POC ABG HCO3 27.2 02/13/21 14:18 ABG O2 Saturation 86.8 (0-100) 02/13/21 14:18 PT/INR, D-dimer PT 15.0 Sec. (12.2-14.9) H 02/13/21 13:28 INR 1.13 (0.87-1.13) 02/13/21 13:28 D-Dimer 478.95 ng/mlDDU (0-234) H 02/13/21 13:28 Abnormal lab findings: Abnormal Labs 02/13/21 02/13/21 02/13/21 13:28 13:28 13:28 MCH 25 L RDW 15.7 H Lymph % (Auto) 5.9 L Lymph # (Auto) 0.3 L Seg Neutrophils % 89.3 H PT 15.0 H APTT 23.8 L D-Dimer 478.95 H ABG pH POC ABG pO2 ABG Hemoglobin ABG Oxyhemoglobin ABG Glucose Potassium 5.1 H Chloride 95.7 L BUN 36 H Creatinine 2.0 H Glucose 172 H Lactic Acid Calcium 7.5 L Magnesium Ferritin AST 81 H Lactate Dehydrogenase Total Creatine Kinase 1572 H C-Reactive Protein NT-Pro-B Natriuret Pep Albumin 3.4 L TSH Arterial Blood Glucose Arterial Blood Ionized Calcium Salicylates Acetaminophen 02/13/21 02/13/21 02/13/21 13:28 13:28 13:28 MCH RDW Lymph % (Auto) Lymph # (Auto) Seg Neutrophils % PT APTT D-Dimer ABG pH POC ABG pO2 ABG Hemoglobin ABG Oxyhemoglobin ABG Glucose Potassium Chloride BUN Creatinine Glucose Lactic Acid 6.50 H* Calcium Magnesium Ferritin AST Lactate Dehydrogenase Total Creatine Kinase C-Reactive Protein NT-Pro-B Natriuret Pep Albumin TSH 8.530 H Arterial Blood Glucose Arterial Blood Ionized Calcium Salicylates < 0.3 L Acetaminophen 02/13/21 02/13/21 02/13/21 13:28 13:28 13:36 MCH RDW Lymph % (Auto) Lymph # (Auto) Seg Neutrophils % PT APTT D-Dimer ABG pH POC ABG pO2 ABG Hemoglobin ABG Oxyhemoglobin ABG Glucose Potassium Chloride BUN Creatinine Glucose 176 H Lactic Acid Calcium Magnesium 2.60 H Ferritin AST Lactate Dehydrogenase 713 H Total Creatine Kinase C-Reactive Protein 30.70 H NT-Pro-B Natriuret Pep Albumin TSH Arterial Blood Glucose Arterial Blood Ionized Calcium Salicylates Acetaminophen 5.0 L 02/13/21 02/13/21 02/13/21 13:36 13:36 14:18 MCH RDW Lymph % (Auto) Lymph # (Auto) Seg Neutrophils % PT APTT D-Dimer ABG pH 7.528 H POC ABG pO2 49.8 L ABG Hemoglobin 11.8 L ABG Oxyhemoglobin 85.8 L ABG Glucose 180 H Potassium Chloride BUN Creatinine Glucose Lactic Acid Calcium Magnesium Ferritin 1667.0 H AST Lactate Dehydrogenase Total Creatine Kinase C-Reactive Protein NT-Pro-B Natriuret Pep 3473 H Albumin TSH Arterial Blood Glucose 180 H Arterial Blood Ionized Calcium 3.7 L Salicylates Acetaminophen
[2021-02-13] MEDS ORDERED: CALCIUM CHLORIDE 1,000 MG in SODIUM CHLORIDE 0.9% 100 ML IV ONE (16:00)
[2021-02-13] MEDS ORDERED: SODIUM CHLORIDE 0.9% 1000 ML IV SOLN IV ONE (16:00)
[2021-02-13] MEDS ORDERED: fentaNYL 100 MCG/2 ML INJ IV PRN (16:05)
[2021-02-13] MEDS ORDERED: MINERAL OIL/PETROLATUM, WHITE OPHTH OINT 3.5 GM OU PRN (16:05)
[2021-02-13] MEDS ORDERED: LIP THERAPY VASELINE TP PRN ×2 (16:05→22:52)
--- NOTE | 2021-02-13 16:34 | Procedure Note ---
Date of procedure: 02/13/21 Pre-op diagnosis: Septic shock, coronavirus infection, respiratory failure Post-op diagnosis: same Procedure: Right internal jugular venous catheter under ultrasound guidance. The patient was prepped and draped in the usual sterile fashion. A timeout was taken to verify the correct procedure, correct patient, and correct operative site. Ultrasound was utilized to localize the right internal jugular vein without difficulty. Lidocaine 1% was utilized to anesthetize the skin. The Seldinger technique was utilized with a seeker needle to access the right internal jugular vein under ultrasound guidance without difficulty. A guidewire was then advanced through the seeker needle into the right internal jugular vein and the seeker needle was then removed over the guidewire. A scalpel was then used to incise the skin. A dilator was then advanced over the guidewire into the right internal jugular vein and subsequently removed. A preflushed triple- lumen catheter was then advanced over the guidewire into the right internal jugular vein without difficulty. The guidewire was subsequently removed. All 3 ports flush and draw with ease. The triple-lumen catheter was subsequently sewn in place. Estimated blood loss minimal. Anesthesia: local Surgeon: GARRET MYERS Estimated blood loss: minimal
--- NOTE | 2021-02-13 16:38 | XRay Report ---
CHEST 1 VIEW INDICATION / CLINICAL INFORMATION: Central line placement. COMPARISON: Earlier same day FINDINGS: SUPPORT DEVICES: Right IJ central venous catheter noted with tip in the mid SVC. HEART / MEDIASTINUM: Stable. LUNGS / PLEURA: Bilateral airspace disease, unchanged. No pneumothorax. ADDITIONAL FINDINGS: No significant additional findings. IMPRESSION: Right IJ central venous catheter noted with tip in the mid SVC. Otherwise no change. Signer Name: Simon Dominguez MD Signed: 02/13/2021 4:33 PM Workstation Name: [id number]
[2021-02-13 16:48] LABS: Hemoglobin 11.9 gm/dl (10.1-14.3)
[2021-02-13 16:56] LABS: INR 1.16 (0.87-1.13)
[2021-02-13 16:57] LABS: Partial Thromboplastin Time 27.5 Sec. (24.2-36.6)
[2021-02-13] MEDS ORDERED: DOPamine/D5W 800 MG/250 ML 800 MG/250 ML BAG IV ONE ×2 (17:11→17:18)
[2021-02-13] MEDS: cefTRIAXone/NS 2 GM/100 ML 2 GM/100 ML BAG IV SCH (17:14)
[2021-02-13 17:18] LABS: Chol/HDL Ratio 3.25 %
[2021-02-13] MEDS: NORepinephrine/NS 4 MG-250 ML 4 MG/250 ML BAG IV SCH (17:20)
[2021-02-13] MEDS: methylPREDNISolone Sod Succinate 40 MG/1 ML INJ IV SCH (18:00)
[2021-02-13] MEDS: CHOLECALCIFEROL (VIT D3) 1000 UNIT (25 mcg) TAB PO SCH (20:23)
[2021-02-13] MEDS: HEPARIN/ 0.45% NACL DRIP 25,000 UNIT/500 ML BAG IV SCH (20:49)
[2021-02-13 21:49] LABS: Amphetamine Screen,Urine Negative; Benzodiazepines Screen,Urine Negative; Cannabinoid Screen,Urine Negative; Cocaine Screen,Urine Negative; Methadone Screen,Urine Negative; Opiate Screen,Urine Negative
[2021-02-13 21:51] LABS: Bacteria,Urine 2+ /HPF (Negative); Bilirubin,Urine NEG (Negative); Blood,Urine LG (Negative); Color,Urine Amber (Yellow); Hyaline Casts,Urine 5 /LPF; Mucus,Urine 2+ /HPF; Urobilinogen,Urine < 2.0 mg/dL (<2.0)
[2021-02-13 21:55] LABS: Protein,Urine >500 mg/dL (Negative)
[2021-02-13] MEDS ORDERED: FAMOTIDINE 20 MG/2 ML INJ IV SCH (22:00)
[2021-02-13] MEDS ORDERED: HEPARIN 5,000 UNIT/1 ML VIAL SUB-Q SCH (22:00)
[2021-02-13] MEDS: fentaNYL DRIP Premix 2,000 MCG/100 ML BAG IV SCH (22:25)
[2021-02-13] MEDS: ASCORBIC ACID 500 MG TAB PO SCH (22:54)
[2021-02-13] MEDS: ZINC SULFATE 220 MG CAP PO SCH (22:54)
[2021-02-13] MEDS ORDERED: ETOMIDATE 20 MG/10 ML INJ IV ONE (22:55)
[2021-02-13] MEDS ORDERED: ROCURONIUM 50 MG/5 ML INJ IV ONE (22:55)
--- NOTE | 2021-02-13 23:18 | Consultation ---
DATE OF CONSULTATION: 02/13/2021 CONSULTING PHYSICIAN: Dr. Mohamud. REASON FOR CONSULTATION: Acute hypoxemic respiratory failure, on mechanical ventilatory support. HISTORY OF PRESENT ILLNESS: The patient is a 70-year-old obese female with past medical history according to the records, significant for a diagnosis of obesity hypoventilation syndrome. She was found unresponsive by her family. According to the EMS, she was found foaming at the mouth. She has shallow breathing. Her pupils were constricted. Initial O2 sats of 50%, came up into the 80s with 100% oxygen on bag valve mask ventilation. She was given some Narcan. There was no response. In the Emergency Room, blood glucose was 213, blood pressure, she was hypotensive and ultimately she required intubation emergently due to being obtunded and to protect her airways. We are asked to assist with management. When I stopped by to see her, she was resting in bed. She was not responding appropriately; however, she was beginning to open her eyes a little bit, pupils were about 4 mm, reactive to light. I do not have any history of vomiting or overt aspiration. With regards to the patient's tobacco use/abuse history that history is unknown. This really is as much of the history as we have. PAST MEDICAL HISTORY: 1. Obesity. 2. Obesity hypoventilation syndrome. PAST SURGICAL HISTORY: Unknown. MEDICATIONS: She was on at the time I stopped by to see according to the medication administration record included the following: Tylenol 650 mg p.o. q. 6 hours p.r.n. mild pain or fevers. All p.o. meds via the feeding tube. Albuterol 2.5 mg per q. 3 hours p.r.n. shortness of breath, vitamin C 500 mg p.o. b.i.d., Zithromax 500 mg IV daily, seems like she received a one-time dose of calcium chloride 1 gram, Rocephin 2 grams IV daily, vitamin D3 1000 units p.o. daily, heparin 5000 units subcutaneously q. 12 hours., Dilaudid 0.5 mg IV q. 12 hours p.r.n. severe pain, Solu-Medrol 40 mg IV q. 8 hours schedule, morphine sulfate 2 mg IV q. 8 hours p.r.n. moderate pain, vancomycin 2 grams IV x1, zinc sulfate 220 mg p.o. b.i.d., Zosyn she received 4.5 grams IV x1. ALLERGIES: PENICILLINS, nature of this allergy is unknown. DIET: Obese lady, acute weight loss or gain history is unknown. FAMILY AND SOCIAL HISTORY: Apparently lives in the community. alcohol, tobacco or illicit drug use or abuse history are unknown. FAMILY HISTORY: Otherwise unknown. REVIEW OF SYSTEMS: Unobtainable secondary to the patient's medical and mental condition. Since she has been in the hospital, no gross hematochezia or melena, no gross hematuria, no hematemesis, no hemoptysis, no bloody tracheal secretions, no witnessed seizures. Review of systems otherwise unobtainable or as in the body of history above. PHYSICAL EXAMINATION: VITAL SIGNS: At presentation in the Emergency Room, vital signs, temperature 99.4 degrees Fahrenheit rectally, pulse 67, respiratory rate on the mechanical ventilator 20 per minute, blood pressure 137/94, O2 sats the best we have seen is about 87% on 100% FIO2 and 20 of PEEP. Blood pressure was 58/32 also at presentation. GENERAL: She is an elderly obese lady. Normocephalic, appears atraumatic on the mechanical ventilator with mildly increased respiratory effort at rest. She is taking some spontaneous respirations. HEAD, EYES, EARS, NOSE AND THROAT: Anicteric, No conjunctival erythema. Oropharynx was moist. She has an endotracheal tube taped around 23-24 cm at the lips. No gross jugular venous distention, no thyromegaly. She has a clean scar from a prior likely thyroidectomy. She has a large neck circumference. Grossly, there were no palpable lymph nodes in the supraclavicular or submandibular lymph node chains. LUNGS: Auscultation of both lung dixon significant for diminished bilateral breath sounds, no active wheezing. Some scant basilar rhonchi. HEART: Sounds 1 and 2 are heard. There were regular rate and rhythm at the time of my evaluation without overt rubs or murmurs. ABDOMEN: Soft, full, protuberant. Bowel sounds are positive, nontender, no palpable hepatosplenomegaly. EXTREMITIES: Without overt digital clubbing or cyanosis, no pedal edema. Pedal pulses are 2+ bilaterally. NEUROLOGIC: Pupils are equal, round, about 3-4 mm, reactive to light. Extraocular muscle movements could not be assessed. There was no nystagmus. She had an appropriate movements to a sternal rub with bringing both upper extremities, right greater than left towards the sternum. She also had withdrawal movements to both lower extremities. She was not having any actual seizures. I did notice a 1-2 myoclonic type jerks during the evaluation, but really no lateralizing signs. SKIN: Normal turgor in the areas examined without overt cellulitis or rash. PSYCHIATRIC: Mood and affect could not be assessed. LABORATORY DATA: White cell count 5800, hemoglobin 11.8, hematocrit 37.0, platelet count 184. INR within normal limits. D-dimer 479. Arterial blood gas showed a pH of 7.53, pCO2 of 34, pO2 of 50 that was on 100% FiO2, tidal volumes 500, rate of 20 and PEEP of 18 at that time. Serum sodium was 139, potassium 5.1, chloride 96, bicarbonate 23, BUN 36, creatinine 2.0, glucose 176. Lactic acid level was 6.5, calcium 7.5, magnesium 2.6. Ferritin 1667, AST 81. LDH up at 713. CPK 1572. Troponin within normal limits. CRP was 30.7. BNP was also elevated. Procalcitonin 1.1. TSH was high at 8.53. Aspirin, Tylenol, alcohol levels were nondetectable. No microbiology studies for my review. Chest x-ray shows essentially a borderline cardiomegaly. ET tube in good position, right greater than left pulmonary infiltrates, mostly involving the mid lung zones in the bases. I cannot rule out small pleural effusions, no gross pneumothorax, no gross bony fracture. ASSESSMENT: 1. Acute hypoxemic respiratory failure, now on mechanical ventilatory support. 2. Acute respiratory distress syndrome. 3. Bilateral pneumonia. 4. Person under investigation for COVID-19. 5. History of obesity hypoventilation syndrome. 6. Acute kidney injury. 7. Elevated serum inflammatory markers to include D-dimers, ferritin, LDH, CRP. 8. Hyperkalemia. 9. Lactic acidosis. 10. Probable rhabdomyolysis. 11. Acute encephalopathy. PLAN: It is unclear if she had indeed has any intracranial process. The D-dimer was elevated, but not overtly so, we will question is whether she has suffered a significant venous thromboembolic event to which she needs emergent anticoagulation. __ the whole picture looking mostly like a COVID picture with her having nonlateralizing signs and without significant pupillary defects that she will benefit from full anticoagulation. I will go ahead and start her on IV heparin PE protocol; however, will not give her bolus. She will be watched clinically closely thereafter. Oxygen will be weaned to keep sats greater than or equal to about 92%. Aspiration precautions will be maintained. Of note, I have made adjustments on the ventilator. Plateau pressures were in the high 30s. I have reduced the tidal volume to 400, increased the rate to 25 and increased the PEEP to 20. We will repeat another arterial blood gas later tonight and make weaning decisions from there. Bronchodilators will be continued as ordered. Routine pulmonary hygiene will be per the respiratory therapist. I do agree with broad-spectrum antibiotic therapy. She is not a candidate for remdesivir acutely. We will keep her on contact and airborne precautions. I agree with zinc and vitamin C supplementation. Nephrology consultation will be of benefit. Volume resuscitation is ongoing right now. We will get urine electrolytes, urine sodium, urine creatinine and a calculated fractional excretion of sodium, but I do agree with volume resuscitation in the short time while watching out for pulmonary edema, especially with cardiomegaly. I will be putting her on GI prophylaxis. We will continue empiric community-acquired pneumonia therapy at this time. Enteral nutrition will be the feeding modality of choice. Glycemic control will be for target blood glucose of 140-180 mg/dL. Flu and pneumonia vaccination will be addressed per protocol. Bilateral lower extremity Dopplers will be ordered in the meantime. Thank you very much for the consult. I will follow along and make further recommendations as picture progresses/becomes clearer. She is critically ill on life-sustaining interventions a very high risk of from cardiopulmonary, renal and neurologic system decompensation. This time was spent about 35-40 minutes of critical care time without overlap and excluding any procedural time that may be necessary. Of note, while I was in the Emergency Room the attending has reached out to the family and informed them how grave her situation is. She remains a full code for now. We will continue as such. TID: [id number] RECEIPT: [id number] CHACHO/TRAVIS
[2021-02-13] MEDS: SENNOSIDES/DOCUSATE SODIUM 8.6/50 MG TAB FEEDTUBE SCH (23:25)
[2021-02-14] MEDS: NORepinephrine/NS 4 MG-250 ML 4 MG/250 ML BAG IV SCH (01:32)
--- NOTE | 2021-02-14 01:41 | Consultation ---
History of Present Illness - Reason for Consult Consult date: 02/14/21 acute renal failure, hyperkalemia, metabolic acidosis Requesting physician: GARRET MYERS - History of Present Illness 70-year-old female with unknown past medical history brought in by EMS after she was found unresponsive by her family. According to the EMS report, she was found foaming at the mouth and was unresponsive. When EMS arrived, the patient had shallow breathing and was noted to have constricted pupils. Her initial oxygen saturation was 50% but with bagging improved to the 80s with the highest sat being 86%. She was given 2 mg of IV Narcan with no response whatsoever. They continued bagging the patient and brought her to our emergency department her fingerstick blood glucose for EMS was 213. She was noted to have normal heart rate and blood pressure. Further details of the HPI are severely limited due to the patient's current clinical condition. ROS: Stated complaint: UNRESPONSIVE/AMS Other details as noted in HPI Comment: Unobtainable due to pts medical conditions Past History Past Medical History: hypertension, hypothyroidism Past Surgical History: No surgical history, Other (Reviewed) Social history: single, lives with family. denies: smoking, alcohol abuse, prescription drug abuse Family history: diabetes, hypertension Medications and Allergies Allergies Allergy/AdvReac Type Severity Reaction Status Date / Time Penicillins AdvReac Unknown Verified 02/13/21 15:39 Home Medications Medication Instructions Recorded Confirmed Last Taken Type Insulin NPH Hum/Reg Insulin Hm See Protocol SQ DAILY 02/13/21 02/13/21 Unknown History [Novolin 70-30 100 Unit/ml Vial] metFORMIN [Glucophage] 500 mg PO TID 02/13/21 02/13/21 Unknown History Active Meds: Active Medications Acetaminophen (Acetaminophen 325 Mg Tab) 650 mg PO Q6H PRN PRN Reason: Pain, Mild (1-3) Acetaminophen (Acetaminophen 650 Mg Rect Supp) 650 mg NC Q6H PRN PRN Reason: Pain MILD(1-3)/Fever >100.5/ZACARIAS Last Admin: 02/13/21 20:30 Dose: 650 mg Documented by: Albuterol (Albuterol 2.5 Mg/3 Ml Nebu) 2.5 mg IH Q3H PRN PRN Reason: Shortness Of Breath Ascorbic Acid (Ascorbic Acid 500 Mg Tab) 500 mg PO BID RUDY Last Admin: 02/13/21 22:54 Dose: Not Given Documented by: Cholecalciferol (Cholecalciferol (Vit D3) 1000 Unit (25 Mcg) Tab) 1,000 unit PO QDAY [facility] Last Admin: 02/13/21 20:23 Dose: Not Given Documented by: Famotidine (Famotidine 20 Mg/2 Ml Inj) 20 mg IV BID [facility] Last Admin: 02/13/21 23:24 Dose: 20 mg Documented by: Fentanyl (Fentanyl 100 Mcg/2 Ml Inj) 50 mcg IV Q10MIN PRN PRN Reason: ANALGESIA Hydromorphone HCl (Hydromorphone 1 Mg/1 Ml Inj) 0.25 mg IV Q4H PRN PRN Reason: Pain, Moderate (4-6) Hydromorphone HCl (Hydromorphone 1 Mg/1 Ml Inj) 0.5 mg IV Q12H PRN PRN Reason: Pain , Severe (7-10) Hydrophilic Ointment (Lip Therapy Vaseline) 1 applic TP Q2H PRN PRN Reason: Dry Lips Hydrophilic Ointment (Lip Therapy Vaseline) 1 applic TP Q2HR PRN PRN Reason: Dry Lips Ceftriaxone Sodium (Rocephin/Ns 2 Gm/100 Ml) 2 gm in 100 mls @ 200 mls/hr IV Q24H RUDY; Protocol Last Admin: 02/13/21 17:14 Dose: 200 mls/hr Documented by: Azithromycin (Zithromax/Ns) 500 mg in 250 mls @ 250 mls/hr IV Q24H RUDY; Protocol Heparin Sodium/Sodium Chloride (Heparin/ 0.45% Nacl-25,000 Unit/500 Ml) 25,000 unit in 500 mls @ 30 mls/hr IV TITR RUDY; Protocol Last Admin: 02/13/21 20:49 Dose: 1,500 units/hr, 30 mls/hr Documented by: Fentanyl Citrate (Fentanyl Drip Premix) 2,000 mcg in 100 mls @ 5.55 mls/hr IV TITR RUDY; Protocol Last Titration: 02/13/21 22:40 Dose: 4 mcg/kg/hr, 22.2 mls/hr Documented by: Norepinephrine (Levophed Drip 4 Mg/Ns 250 Ml) 4 mg in 250 mls @ 75 mls/hr IV TITR RUDY; Protocol Last Admin: 02/14/21 01:32 Dose: 4 mcg/min, 15 mls/hr Documented by: Dopamine HCl/Dextrose (Intropin Drip 800 Mg/D5w 250 Ml) 800 mg in 250 mls @ 20.813 mls/hr IV TITR ONE; Protocol Stop: 02/14/21 05:18 Last Titration: 02/13/21 19:00 Dose: 4 mcg/kg/min, 8.325 mls/hr Documented by: Propofol (Diprivan 10 Mg/Ml) 1,000 mg in 100 mls @ 3.33 mls/hr IV TITR RUDY; Protocol Last Admin: 02/13/21 23:48 Dose: 5 mcg/kg/min, 3.33 mls/hr Documented by: Methylprednisolone Sodium Succinate (Methylprednisolone Sod Succinate 40 Mg/1 Ml Inj) 40 mg IV Q8H [facility] Last Admin: 02/13/21 18:00 Dose: 40 mg Documented by: Morphine Sulfate (Morphine 2 Mg/1 Ml Inj) 2 mg IV Q8H PRN PRN Reason: Pain, Moderate (4-6) Multi-Ingred Cream/Lotion/Oil/Oint (Mineral Oil/Petrolatum, White Ophth Oint 3.5 Gm) 1 applic OU Q4H PRN PRN Reason: Dry Eye(s) Senna/Docusate Sodium (Sennosides/Docusate Sodium 8.6/50 Mg Tab) 1 tab FEEDTUBE BID [facility] Last Admin: 02/13/21 23:25 Dose: Not Given Documented by: Sodium Chloride (Sodium Chloride 0.9% 10 Ml Flush Syringe) 10 ml IV BID [facility] Last Admin: 02/13/21 22:54 Dose: 10 ml Documented by: Sodium Chloride (Sodium Chloride 0.9% 10 Ml Flush Syringe) 10 ml IV PRN PRN PRN Reason: LINE FLUSH Zinc Sulfate (Zinc Sulfate 220 Mg Cap) 220 mg PO BID [facility] Last Admin: 02/13/21 22:54 Dose: Not Given Documented by: Exam - Vital Signs Vital signs: Vital Signs Pulse Pulse Ox 66 91 02/13/21 13:18 02/13/21 13:18 - Physical Exam Narrative exam: GENERAL: Morbidly obese female. Unresponsive and obtunded HEAD: Normocephalic. No obvious signs of trauma. ENT: Dry mucous membranes. Bag valve mask applied EYES: Pupils are constricted bilaterally but remain reactive. NECK: Trachea is midline. LUNGS: Bilateral breath sounds with [id number] ventilation. There are sca ttered rales throughout. CARDIOVASCULAR: Regular rate and rhythm. 3/6 systolic murmur VASCULAR: Cap refill < 2 seconds ABDOMEN: Abdomen is soft and nondistended. There is central adiposity SKIN: Skin is warm and dry NEURO: Patient is obtunded and unresponsive even to pain. GCS is 3 MUSCULOSKELETAL: No obvious deformities. Results - Lab Results 02/13/21 16:27 02/13/21 13:36 Most recent lab results ABG pH 7.441 (7.320-7.450) 02/13/21 21:00 ABG O2 Saturation 78.8 (0-100) 02/13/21 21:00 Calcium 7.5 mg/dL (8.4-10.2) L 02/13/21 13:28 Magnesium 2.60 mg/dL (1.7-2.3) H 02/13/21 13:28 Assessment and Plan Impression: * SONIA/ATN * COvid PUI * Acute hypoxic resp failure * Sepsis * hyperkalemia * Metabolic acidosis Plan: * daily lytes * strict i/os * avoid nephrotoxins * Keep MAP>65, vasopressors prn * no emergent indicaion for [employer] today * sepsis protocol
[2021-02-14 04:35] LABS: Calcium 7.7 mg/dL (8.4-10.2)
[2021-02-14] MEDS ORDERED: MIDAZOLAM 2 MG/2 ML INJ IV PRN (08:24)
[2021-02-14] MEDS: DOPamine/D5W 800 MG/250 ML 800 MG/250 ML BAG IV SCH ×2 (08:30→23:20)
[2021-02-14] MEDS: methylPREDNISolone Sod Succinate 40 MG/1 ML INJ IV SCH ×3 (09:09→16:56)
[2021-02-14] MEDS: SENNOSIDES/DOCUSATE SODIUM 8.6/50 MG TAB FEEDTUBE SCH ×2 (09:10→23:23)
[2021-02-14] MEDS: CHOLECALCIFEROL (VIT D3) 1000 UNIT (25 mcg) TAB PO SCH (09:10)
[2021-02-14] MEDS: ZINC SULFATE 220 MG CAP PO SCH ×2 (09:10→23:24)
[2021-02-14] MEDS: ASCORBIC ACID 500 MG TAB PO SCH ×2 (09:10→23:24)
[2021-02-14] MEDS ORDERED: SIMPLE SYRUP 15 ML FEEDTUBE PRN ×2 (10:43)
[2021-02-14] MEDS ORDERED: SODIUM BICARBONATE 325 MG TAB FEEDTUBE PRN (10:43)
[2021-02-14] MEDS ORDERED: LIPASE 10,500/PROTEASE 25,000/AMYLASE 43,750 (UNITS) DR CAP FEEDTUBE PRN (10:43)
--- NOTE | 2021-02-14 11:09 | Consultation ---
History of Present Illness - Reason for Consult Consult date: 02/14/21 SONALI PUI Requesting physician: GARRET MYERS - History of Present Illness The patient is a 70-year-old female with obesity hypoventilation syndrome, hypertension, hypothyroidism admitted to the hospital after she was found unresponsive. EMS evaluation noted the patient to be in significant respiratory distress with hypoxia. She was intubated and placed on mechanical ventilation. Also noted to be in septic shock. Chest x-ray showed bilateral pneumonia. Noted to have fever of 101.6 F, labs revealed normal WBC, D-dimer 478, elevated creatinine, lactic acidosis, total CK 1572, mild transaminitis. CRP was 30.7 on admission, ferritin 1667, procalcitonin 1.1. UA also showed pyuria. COVID-19 PCR is pending. Patient is currently receiving ceftriaxone, azithromycin. Is on me thylprednisolone, heparin drip. Weaned off pressors. Review of Systems: reviewed in the chart, unable to obtain, minimize risk of transmission Past History Past Medical History: hypertension, hypothyroidism Past Surgical History: No surgical history, Other (Reviewed) Social history: single, lives with family. denies: smoking, alcohol abuse, prescription drug abuse Family history: diabetes, hypertension Medications and Allergies Allergies Allergy/AdvReac Type Severity Reaction Status Date / Time Penicillins AdvReac Unknown Verified 02/13/21 15:39 Home Medications Medication Instructions Recorded Confirmed Last Taken Type Insulin NPH Hum/Reg Insulin Hm See Protocol SQ DAILY 02/13/21 02/13/21 Unknown History [Novolin 70-30 100 Unit/ml Vial] metFORMIN [Glucophage] 500 mg PO TID 02/13/21 02/13/21 Unknown History Active Meds: Active Medications Acetaminophen (Acetaminophen 325 Mg Tab) 650 mg PO Q6H PRN PRN Reason: Pain, Mild (1-3) Acetaminophen (Acetaminophen 650 Mg Rect Supp) 650 mg AK Q6H PRN PRN Reason: Pain MILD(1-3)/Fever >100.5/ZACARIAS Last Admin: 02/13/21 20:30 Dose: 650 mg Documented by: Albuterol (Albuterol 2.5 Mg/3 Ml Nebu) 2.5 mg IH Q3H PRN PRN Reason: Shortness Of Breath Lipase/Protease/Amylase (Lipase 10,500/Protease 25,000/Amylase 43,750 (Units) Dr Iqbal) 1 each FEEDTUBE PRN PRN PRN Reason: For Clogged Feeding Tube Ascorbic Acid (Ascorbic Acid 500 Mg Tab) 500 mg PO BID [facility] Last Admin: 02/14/21 09:10 Dose: Not Given Documented by: Cholecalciferol (Cholecalciferol (Vit D3) 1000 Unit (25 Mcg) Tab) 1,000 unit PO QDAY [facility] Last Admin: 02/14/21 09:10 Dose: Not Given Documented by: Famotidine (Famotidine 20 Mg/2 Ml Inj) 20 mg IV DAILY [facility] Fentanyl (Fentanyl 100 Mcg/2 Ml Inj) 50 mcg IV Q10MIN PRN PRN Reason: ANALGESIA Hydromorphone HCl (Hydromorphone 1 Mg/1 Ml Inj) 0.25 mg IV Q4H PRN PRN Reason: Pain, Moderate (4-6) Hydromorphone HCl (Hydromorphone 1 Mg/1 Ml Inj) 0.5 mg IV Q12H PRN PRN Reason: Pain , Severe (7-10) Hydrophilic Ointment (Lip Therapy Vaseline) 1 applic TP Q2HR PRN PRN Reason: Dry Lips Ceftriaxone Sodium (Rocephin/Ns 2 Gm/100 Ml) 2 gm in 100 mls @ 200 mls/hr IV Q24H [facility]; Protocol Last Admin: 02/13/21 17:14 Dose: 200 mls/hr Documented by: Azithromycin (Zithromax/Ns) 500 mg in 250 mls @ 250 mls/hr IV Q24H [facility]; Protocol Heparin Sodium/Sodium Chloride (Heparin/ 0.45% Nacl-25,000 Unit/500 Ml) 25,000 unit in 500 mls @ 30 mls/hr IV TITR [facility]; Protocol Last Titration: 02/14/21 06:11 Dose: 0 units/hr, 0 mls/hr Documented by: Fentanyl Citrate (Fentanyl Drip Premix) 2,000 mcg in 100 mls @ 5.55 mls/hr IV TITR [facility]; Protocol Last Titration: 02/14/21 02:00 Dose: 3 mcg/kg/hr, 16.65 mls/hr Documented by: Norepinephrine (Levophed Drip 4 Mg/Ns 250 Ml) 4 mg in 250 mls @ 75 mls/hr IV TITR [facility]; Protocol Last Titration: 02/14/21 01:55 Dose: 0 mcg/min, 0 mls/hr Documented by: Propofol (Diprivan 10 Mg/Ml) 1,000 mg in 100 mls @ 3.33 mls/hr IV TITR [facility]; Protocol Last Titration: 02/14/21 09:13 Dose: 30 mcg/kg/min, 19.98 mls/hr Documented by: Midazolam HCl 100 mg/ Sodium (Chloride) 100 mls @ 1 mls/hr IV TITR [facility]; Protocol Dopamine HCl/Dextrose (Intropin Drip 800 Mg/D5w 250 Ml) 800 mg in 250 mls @ 4.163 mls/hr IV TITR [facility]; Protocol Methylprednisolone Sodium Succinate (Methylprednisolone Sod Succinate 40 Mg/1 Ml Inj) 40 mg IV Q8H [facility] Last Admin: 02/14/21 09:09 Dose: 40 mg Documented by: Midazolam HCl (Midazolam 2 Mg/2 Ml Inj) 2 mg IV Q10MIN PRN PRN Reason: Sedation Multi-Ingred Cream/Lotion/Oil/Oint (Mineral Oil/Petrolatum, White Ophth Oint 3.5 Gm) 1 applic OU Q4H PRN PRN Reason: Dry Eye(s) Senna/Docusate Sodium (Sennosides/Docusate Sodium 8.6/50 Mg Tab) 1 tab FEEDTUBE BID [facility] Last Admin: 02/14/21 09:10 Dose: Not Given Documented by: Simple Syrup (Simple Syrup 15 Ml) 15 ml FEEDTUBE PRN PRN PRN Reason: Hypoglycemia Simple Syrup (Simple Syrup 15 Ml) 30 ml FEEDTUBE PRN PRN PRN Reason: Hypoglycemia Sodium Bicarbonate (Sodium Bicarbonate 325 Mg Tab) 325 mg FEEDTUBE PRN PRN PRN Reason: For Clogged Feeding Tube Sodium Chloride (Sodium Chloride 0.9% 10 Ml Flush Syringe) 10 ml IV BID [facility] Last Admin: 02/14/21 09:10 Dose: 10 ml Documented by: Sodium Chloride (Sodium Chloride 0.9% 10 Ml Flush Syringe) 10 ml IV PRN PRN PRN Reason: LINE FLUSH Zinc Sulfate (Zinc Sulfate 220 Mg Cap) 220 mg PO BID [facility] Last Admin: 02/14/21 09:10 Dose: Not Given Documented by: Physical Examination - Physical Exam Narrative exam: Physical Exam (reviewed in chart to minimize risk of transmission) Constitutional: deferred Head, Ears, Nose: deferred Eyes: deferred Neck: deferred Oral: deferred Cardiovascular: deferred Respiratory: deferred GI: deferred Musculoskeletal: deferred Skin: deferred Hem/Lymphatic: deferred Psych: deferred Neurological: deferred - Constitutional Vitals: Vital Signs Temp Pulse Resp BP Pulse Ox 97.6 F 53 L 25 H 175/79 98 02/14/21 07:39 02/14/21 10:20 02/14/21 10:20 02/14/21 10:20 02/14/21 10:20 Temperature -Last 24 Hours Temperature 97.6 F Temperature 97.4 F Temperature 101.5 F Temperature 101.6 F Temperature 99.4 F Results - Labs CBC & Chem 7: 02/13/21 16:27 02/14/21 03:54 Labs: Abnormal lab results 02/13/21 02/13/21 02/13/21 Range/Units 13:28 13:28 13:28 MCH 25 L (28-32) pg RDW 15.7 H (13.2-15.2) % Lymph % (Auto) 5.9 L (13.4-35.0) % Lymph # (Auto) 0.3 L (1.2-5.4) K/mm3 Seg Neutrophils % 89.3 H (40.0-70.0) % PT 15.0 H (12.2-14.9) Sec. INR (0.87-1.13) APTT 23.8 L (24.2-36.6) Sec. D-Dimer 478.95 H (0-234) ng/mlDDU Heparin Anti-Xa Level (0.3-0.7) U.I./ml ABG pH (7.320-7.450) POC ABG pO2 (83-108) mmHg ABG Hemoglobin (12.0-17.5) ABG Oxyhemoglobin (94-98) ABG Glucose (65-95) mg/dL Potassium 5.1 H (3.6-5.0) mmol/L Chloride 95.7 L (98-107) mmol/L BUN 36 H (7-17) mg/dL Creatinine 2.0 H (0.6-1.2) mg/dL Glucose 172 H (65-100) mg/dL Lactic Acid (0.7-2.0) mmol/L Calcium 7.5 L (8.4-10.2) mg/dL Magnesium (1.7-2.3) mg/dL Ferritin (10.0-200.0) ng/mL AST 81 H (5-40) units/L Lactate Dehydrogenase (91-180) units/L Total Creatine Kinase 1572 H (30-135) units/L Troponin T (0.00-0.029) ng/mL C-Reactive Protein (0.00-1.30) mg/dL NT-Pro-B Natriuret Pep (0-900) pg/mL Albumin 3.4 L (3.9-5) g/dL Triglycerides (2-149) mg/dL TSH (0.270-4.200) mlU/mL Arterial Blood Glucose (65-95) mg/dL Arterial Blood Ionized Calcium (4.6-5.3) mg/dL Urine WBC (Auto) (0.0-6.0) /HPF Salicylates (2.8-20.0) mg/dL Acetaminophen (10.0-30.0) ug/mL 02/13/21 02/13/21 02/13/21 Range/Units 13:28 13:28 13:28 MCH (28-32) pg RDW (13.2-15.2) % Lymph % (Auto) (13.4-35.0) % Lymph # (Auto) (1.2-5.4) K/mm3 Seg Neutrophils % (40.0-70.0) % PT (12.2-14.9) Sec. INR (0.87-1.13) APTT (24.2-36.6) Sec. D-Dimer (0-234) ng/mlDDU Heparin Anti-Xa Level (0.3-0.7) U.I./ml ABG pH (7.320-7.450) POC ABG pO2 (83-108) mmHg ABG Hemoglobin (12.0-17.5) ABG Oxyhemoglobin (94-98) ABG Glucose (65-95) mg/dL Potassium (3.6-5.0) mmol/L Chloride (98-107) mmol/L BUN (7-17) mg/dL Creatinine (0.6-1.2) mg/dL Glucose (65-100) mg/dL Lactic Acid 6.50 H* (0.7-2.0) mmol/L Calcium (8.4-10.2) mg/dL Magnesium (1.7-2.3) mg/dL Ferritin (10.0-200.0) ng/mL AST (5-40) units/L Lactate Dehydrogenase (91-180) units/L Total Creatine Kinase (30-135) units/L Troponin T (0.00-0.029) ng/mL C-Reactive Protein (0.00-1.30) mg/dL NT-Pro-B Natriuret Pep (0-900) pg/mL Albumin (3.9-5) g/dL Triglycerides (2-149) mg/dL TSH 8.530 H (0.270-4.200) mlU/mL Arterial Blood Glucose (65-95) mg/dL Arterial Blood Ionized Calcium (4.6-5.3) mg/dL Urine WBC (Auto) (0.0-6.0) /HPF Salicylates < 0.3 L (2.8-20.0) mg/dL Acetaminophen (10.0-30.0) ug/mL 02/13/21 02/13/21 02/13/21 Range/Units 13:28 13:28 13:36 MCH (28-32) pg RDW (13.2-15.2) % Lymph % (Auto) (13.4-35.0) % Lymph # (Auto) (1.2-5.4) K/mm3 Seg Neutrophils % (40.0-70.0) % PT (12.2-14.9) Sec. INR (0.87-1.13) APTT (24.2-36.6) Sec. D-Dimer (0-234) ng/mlDDU Heparin Anti-Xa Level (0.3-0.7) U.I./ml ABG pH (7.320-7.450) POC ABG pO2 (83-108) mmHg ABG Hemoglobin (12.0-17.5) ABG Oxyhemoglobin (94-98) ABG Glucose (65-95) mg/dL Potassium (3.6-5.0) mmol/L Chloride (98-107) mmol/L BUN (7-17) mg/dL Creatinine (0.6-1.2) mg/dL Glucose 176 H (65-100) mg/dL Lactic Acid (0.7-2.0) mmol/L Calcium (8.4-10.2) mg/dL Magnesium 2.60 H (1.7-2.3) mg/dL Ferritin (10.0-200.0) ng/mL AST (5-40) units/L Lactate Dehydrogenase 713 H (91-180) units/L Total Creatine Kinase (30-135) units/L Troponin T (0.00-0.029) ng/mL C-Reactive Protein 30.70 H (0.00-1.30) mg/dL NT-Pro-B Natriuret Pep (0-900) pg/mL Albumin (3.9-5) g/dL Triglycerides (2-149) mg/dL TSH (0.270-4.200) mlU/mL Arterial Blood Glucose (65-95) mg/dL Arterial Blood Ionized Calcium (4.6-5.3) mg/dL Urine WBC (Auto) (0.0-6.0) /HPF Salicylates (2.8-20.0) mg/dL Acetaminophen 5.0 L (10.0-30.0) ug/mL 02/13/21 02/13/21 02/13/21 Range/Units 13:36 13:36 14:18 MCH (28-32) pg RDW (13.2-15.2) % Lymph % (Auto) (13.4-35.0) % Lymph # (Auto) (1.2-5.4) K/mm3 Seg Neutrophils % (40.0-70.0) % PT (12.2-14.9) Sec. INR (0.87-1.13) APTT (24.2-36.6) Sec. D-Dimer (0-234) ng/mlDDU Heparin Anti-Xa Level (0.3-0.7) U.I./ml ABG pH 7.528 H (7.320-7.450) POC ABG pO2 49.8 L (83-108) mmHg ABG Hemoglobin 11.8 L (12.0-17.5) ABG Oxyhemoglobin 85.8 L (94-98) ABG Glucose 180 H (65-95) mg/dL Potassium (3.6-5.0) mmol/L Chloride (98-107) mmol/L BUN (7-17) mg/dL Creatinine (0.6-1.2) mg/dL Glucose (65-100) mg/dL Lactic Acid (0.7-2.0) mmol/L Calcium (8.4-10.2) mg/dL Magnesium (1.7-2.3) mg/dL Ferritin 1667.0 H (10.0-200.0) ng/mL AST (5-40) units/L Lactate Dehydrogenase (91-180) units/L Total Creatine Kinase (30-135) units/L Troponin T (0.00-0.029) ng/mL C-Reactive Protein (0.00-1.30) mg/dL NT-Pro-B Natriuret Pep 3473 H (0-900) pg/mL Albumin (3.9-5) g/dL Triglycerides (2-149) mg/dL TSH (0.270-4.200) mlU/mL Arterial Blood Glucose 180 H (65-95) mg/dL Arterial Blood Ionized Calcium 3.7 L (4.6-5.3) mg/dL Urine WBC (Auto) (0.0-6.0) /HPF Salicylates (2.8-20.0) mg/dL Acetaminophen (10.0-30.0) ug/mL 02/13/21 02/13/21 02/13/21 Range/Units 16:27 16:27 16:27 MCH (28-32) pg RDW (13.2-15.2) % Lymph % (Auto) (13.4-35.0) % Lymph # (Auto) (1.2-5.4) K/mm3 Seg Neutrophils % (40.0-70.0) % PT 15.3 H (12.2-14.9) Sec. INR 1.16 H (0.87-1.13) APTT (24.2-36.6) Sec. D-Dimer (0-234) ng/mlDDU Heparin Anti-Xa Level (0.3-0.7) U.I./ml ABG pH (7.320-7.450) POC ABG pO2 (83-108) mmHg ABG Hemoglobin (12.0-17.5) ABG Oxyhemoglobin (94-98) ABG Glucose (65-95) mg/dL Potassium (3.6-5.0) mmol/L Chloride (98-107) mmol/L BUN (7-17) mg/dL Creatinine (0.6-1.2) mg/dL Glucose (65-100) mg/dL Lactic Acid 5.30 H* (0.7-2.0) mmol/L Calcium (8.4-10.2) mg/dL Magnesium (1.7-2.3) mg/dL Ferritin (10.0-200.0) ng/mL AST (5-40) units/L Lactate Dehydrogenase (91-180) units/L Total Creatine Kinase (30-135) units/L Troponin T 0.034 H D (0.00-0.029) ng/mL C-Reactive Protein (0.00-1.30) mg/dL NT-Pro-B Natriuret Pep (0-900) pg/mL Albumin (3.9-5) g/dL Triglycerides 181 H (2-149) mg/dL TSH (0.270-4.200) mlU/mL Arterial Blood Glucose (65-95) mg/dL Arterial Blood Ionized Calcium (4.6-5.3) mg/dL Urine WBC (Auto) (0.0-6.0) /HPF Salicylates (2.8-20.0) mg/dL Acetaminophen (10.0-30.0) ug/mL 02/13/21 02/13/21 02/13/21 Range/Units 18:39 18:39 21:00 MCH (28-32) pg RDW (13.2-15.2) % Lymph % (Auto) (13.4-35.0) % Lymph # (Auto) (1.2-5.4) K/mm3 Seg Neutrophils % (40.0-70.0) % PT (12.2-14.9) Sec. INR (0.87-1.13) APTT (24.2-36.6) Sec. D-Dimer (0-234) ng/mlDDU Heparin Anti-Xa Level (0.3-0.7) U.I./ml ABG pH (7.320-7.450) POC ABG pO2 44.5 L (83-108) mmHg ABG Hemoglobin (12.0-17.5) ABG Oxyhemoglobin 78.3 L (94-98) ABG Glucose 181 H (65-95) mg/dL Potassium (3.6-5.0) mmol/L Chloride (98-107) mmol/L BUN (7-17) mg/dL Creatinine (0.6-1.2) mg/dL Glucose (65-100) mg/dL Lactic Acid 3.80 H* (0.7-2.0) mmol/L Calcium (8.4-10.2) mg/dL Magnesium (1.7-2.3) mg/dL Ferritin (10.0-200.0) ng/mL AST (5-40) units/L Lactate Dehydrogenase (91-180) units/L Total Creatine Kinase (30-135) units/L Troponin T 0.033 H (0.00-0.029) ng/mL C-Reactive Protein (0.00-1.30) mg/dL NT-Pro-B Natriuret Pep (0-900) pg/mL Albumin (3.9-5) g/dL Triglycerides (2-149) mg/dL TSH (0.270-4.200) mlU/mL Arterial Blood Glucose 181 H (65-95) mg/dL Arterial Blood Ionized Calcium 4.2 L (4.6-5.3) mg/dL Urine WBC (Auto) (0.0-6.0) /HPF Salicylates (2.8-20.0) mg/dL Acetaminophen (10.0-30.0) ug/mL 02/13/21 02/14/21 02/14/21 Range/Units 21:27 03:54 03:54 MCH (28-32) pg RDW (13.2-15.2) % Lymph % (Auto) (13.4-35.0) % Lymph # (Auto) (1.2-5.4) K/mm3 Seg Neutrophils % (40.0-70.0) % PT (12.2-14.9) Sec. INR (0.87-1.13) APTT (24.2-36.6) Sec. D-Dimer (0-234) ng/mlDDU Heparin Anti-Xa Level 0.96 H (0.3-0.7) U.I./ml ABG pH (7.320-7.450) POC ABG pO2 (83-108) mmHg ABG Hemoglobin (12.0-17.5) ABG Oxyhemoglobin (94-98) ABG Glucose (65-95) mg/dL Potassium (3.6-5.0) mmol/L Chloride (98-107) mmol/L BUN 41 H (7-17) mg/dL Creatinine 2.4 H (0.6-1.2) mg/dL Glucose 210 H (65-100) mg/dL Lactic Acid (0.7-2.0) mmol/L Calcium 7.7 L (8.4-10.2) mg/dL Magnesium (1.7-2.3) mg/dL Ferritin (10.0-200.0) ng/mL AST (5-40) units/L Lactate Dehydrogenase (91-180) units/L Total Creatine Kinase (30-135) units/L Troponin T (0.00-0.029) ng/mL C-Reactive Protein (0.00-1.30) mg/dL NT-Pro-B Natriuret Pep (0-900) pg/mL Albumin (3.9-5) g/dL Triglycerides (2-149) mg/dL TSH (0.270-4.200) mlU/mL Arterial Blood Glucose (65-95) mg/dL Arterial Blood Ionized Calcium (4.6-5.3) mg/dL Urine WBC (Auto) 31.0 H (0.0-6.0) /HPF Salicylates (2.8-20.0) mg/dL Acetaminophen (10.0-30.0) ug/mL - Imaging and Cardiology Chest x-ray: report reviewed, image reviewed (ET tube +, b/l pneumonia) Assessment and Plan Cultures: SARS CoV2 PCR: Pending 02/13/2021 blood culture: In process 02/13/2021 tracheal aspirate culture: Usual respiratory shivani A/P: 70-year-old female with obesity hypoventilation syndrome, hypertension, hypothyroidism admitted to the hospital after she was found unresponsive: #Septic shock: Secondary to below. Resolved. #Bilateral pneumonia: High suspicion for COVID-19. Follow-up PCR. #Acute hypoxic respiratory failure: Secondary to pneumonia. On the vent. #SONIA: Renally adjust antibiotics. #Mild transaminitis: Likely from sepsis. #Possible UTI Recs: Continue steroids Follow-up COVID-19 PCR Continue empiric antibiotics: Ceftriaxone, azithromycin Procalcitonin is elevated, if COVID positive, likely not an Actemra candidate Creatinine is worsening, hold off on any remdesivir even if COVID-19 PCR is positive, unlikely to be of much benefit at this time anyways guarded prognosis Andra Sol MD, FACP [facility] O: [phone] F: [phone]
[2021-02-14] MEDS ORDERED: DEXTROSE 50% IN WATER (25GM) 50 ML SYRINGE IV PRN (11:15)
[2021-02-14 11:28] LABS: C-Reactive Protein 36.7 mg/dL (0.00-1.30)
[2021-02-14] MEDS: fentaNYL DRIP Premix 2,000 MCG/100 ML BAG IV SCH ×4 (11:38→22:30)
[2021-02-14] MEDS: FAMOTIDINE 20 MG/2 ML INJ IV SCH (11:44)
--- NOTE | 2021-02-14 12:29 | Progress Note ---
Assessment and Plan Acute hypoxemic respiratory failure Acute respiratory distress syndrome Bilateral pneumonia PUI COVID-19 Obesity hypoventilation syndrome Acute kidney injuryElevated serum inflammatory markers to include D-dimers, ferritin, LDH, CRP Hyperkalemia Lactic acidosis Probable rhabdomyolysis Acute encephalopathy - hold Propofol re: bradycardia - received 1 amp Atropine earlier - begin Versed for prone sedation (RASS -2 to -3) - begin Dopamine drip re: braduycardia and wean down Levophed - CXR once supine - nephrology evaluation ongoing - continue to wean supplemental oxygen for target O2 sat's > 92% acutely - aspiration precautions - continue bronchodilators with pulmonary hygiene per RT - avoid nephrotoxins, renally dose all medications - continue to avoid benzodiazepine's, reduce the possibility of delirium - complete AB's per ID rec's - prn analgesia per pain score - Maintenance of sleep-wake cycle, avoid delirium - G.I. & VTE prophylaxis - PT/OT/ROM exercises - continue mobility protocols for pressure ulcer prophylaxis - Monitor hemodynamics closely - continue other care per attending / other consultants - discharge planning ongoing concurrently COVID SPECIFIC INTERVENTIONS - Remdesivir as per ID/Pulmonary developed protocols (not a candidate re: SONIA) - continue systemic steroids for severe COVID-19 infection (Solumedrol) - follow repeat COVID tests results - zinc and vitamin C supplementation - Monitor inflammatory markers per facility protocol - ferritin, Ddimer, CRP - therapeutic anticoagulation per system Protocol based on d-dimer and clinical considerations (IV Heparin drip) - Continue contact and airborne isolation .... Re-evaluate in am & prn CONDITION: CRITICAL PROGNOSIS: GUARDED CODE STATUS: FULL CODE The high probability of a clinically significant, sudden or life-threatening deterioration of the [respiratory, cardiovascular & neurologic] system(s) required my full and direct attention, intervention and personal management. The aggregate critical care time was [37] minutes without overlap. Time includes spent on; [x] Data Review and interpretation [x] Patient assessment and monitoring of vital signs [x] Documentation [x] Medication orders and management Subjective Date of service: 02/14/21 Principal diagnosis: AHRF; ARDS; Pneumonia; PUI COVID-19; OHS; SONIA; Hyperkalemia; AMS Interval history: Patient is seen today for: Acute hypoxemic respiratory failure; ARDS; Pneumonia; PUI COVID-19; OHS; SOINA; Hyperkalemia; Rhabdomyolysis; Acute encephalopathy Seen and examined at bedside; 24hour events reviewed; nursing and respiratory care staff consulted; no adverse overnight events reported to me; resting in bed; proning now and O2 sat's in high 90's; bradycardia to 30's earlier on Propofol; no emesis or overt aspiration and no high grade fevers Objective Vital Signs - 12hr 02/14/21 02/14/21 02/14/21 01:00 01:26 02:16 Temperature 101.5 F H Pulse Rate 47 L Pulse Rate [ 48 L From Monitor] Pulse Rate [ 48 L Left] Pulse Rate [ 48 L Right] Respiratory 20 25 H Rate Blood Pressure O2 Sat by Pulse 90 97 Oximetry 02/14/21 02/14/21 02/14/21 02:20 02:30 02:40 Temperature Pulse Rate 46 L 46 L 46 L Pulse Rate [ From Monitor] Pulse Rate [ Left] Pulse Rate [ Right] Respiratory 25 H 25 H 25 H Rate Blood Pressure 122/66 122/66 O2 Sat by Pulse 97 98 98 Oximetry 02/14/21 02/14/21 02/14/21 02:50 03:00 03:10 Temperature Pulse Rate 45 L 45 L 45 L Pulse Rate [ From Monitor] Pulse Rate [ Left] Pulse Rate [ Right] Respiratory 25 H 25 H 25 H Rate Blood Pressure 127/63 130/62 130/62 O2 Sat by Pulse 98 98 98 Oximetry 02/14/21 02/14/21 02/14/21 03:20 03:30 03:40 Temperature Pulse Rate 45 L 45 L 45 L Pulse Rate [ From Monitor] Pulse Rate [ Left] Pulse Rate [ Right] Respiratory 25 H 25 H 21 Rate Blood Pressure 130/65 134/65 134/65 O2 Sat by Pulse 99 98 99 Oximetry 02/14/21 02/14/21 02/14/21 03:45 03:50 04:00 Temperature Pulse Rate 45 L 44 L 47 L Pulse Rate [ From Monitor] Pulse Rate [ Left] Pulse Rate [ Right] Respiratory 25 H 25 H Rate Blood Pressure 134/65 135/63 140/77 O2 Sat by Pulse 98 97 89 Oximetry 02/14/21 02/14/21 02/14/21 04:10 04:20 04:30 Temperature Pulse Rate 43 L 44 L 45 L Pulse Rate [ From Monitor] Pulse Rate [ Left] Pulse Rate [ Right] Respiratory 25 H 25 H 25 H Rate Blood Pressure 140/77 135/67 139/50 O2 Sat by Pulse 95 97 94 Oximetry 02/14/21 02/14/21 02/14/21 04:40 04:50 05:00 Temperature Pulse Rate 44 L 47 L 44 L Pulse Rate [ From Monitor] Pulse Rate [ Left] Pulse Rate [ Right] Respiratory 17 23 18 Rate Blood Pressure 139/50 139/50 139/50 O2 Sat by Pulse 96 96 95 Oximetry 02/14/21 02/14/21 02/14/21 05:10 05:20 05:24 Temperature 97.4 F L Pulse Rate 44 L 45 L Pulse Rate [ From Monitor] Pulse Rate [ Left] Pulse Rate [ Right] Respiratory 21 25 H Rate Blood Pressure 142/82 136/60 O2 Sat by Pulse 95 96 Oximetry 02/14/21 02/14/21 02/14/21 05:26 05:30 05:40 Temperature Pulse Rate 45 L 44 L Pulse Rate [ 45 L From Monitor] Pulse Rate [ 45 L Left] Pulse Rate [ 45 L Right] Respiratory 20 25 H 25 H Rate Blood Pressure 137/61 137/61 O2 Sat by Pulse 90 96 95 Oximetry 02/14/21 02/14/21 02/14/21 05:50 06:00 06:10 Temperature Pulse Rate 45 L 45 L 46 L Pulse Rate [ From Monitor] Pulse Rate [ Left] Pulse Rate [ Right] Respiratory 25 H 19 25 H Rate Blood Pressure 129/106 131/71 131/71 O2 Sat by Pulse 96 96 96 Oximetry 02/14/21 02/14/21 02/14/21 06:20 06:30 06:40 Temperature Pulse Rate 43 L 44 L 45 L Pulse Rate [ From Monitor] Pulse Rate [ Left] Pulse Rate [ Right] Respiratory 25 H 21 25 H Rate Blood Pressure 137/65 134/61 134/61 O2 Sat by Pulse 96 96 97 Oximetry 02/14/21 02/14/21 02/14/21 06:50 07:00 07:10 Temperature Pulse Rate 44 L 46 L 43 L Pulse Rate [ From Monitor] Pulse Rate [ Left] Pulse Rate [ Right] Respiratory 25 H 19 23 Rate Blood Pressure 134/61 134/61 145/67 O2 Sat by Pulse 96 95 95 Oximetry 02/14/21 02/14/21 02/14/21 07:20 07:30 07:39 Temperature 97.6 F Pulse Rate 46 L 44 L Pulse Rate [ From Monitor] Pulse Rate [ Left] Pulse Rate [ Right] Respiratory 17 25 H Rate Blood Pressure 145/67 145/67 O2 Sat by Pulse 97 96 Oximetry 02/14/21 02/14/21 02/14/21 07:40 07:50 08:00 Temperature Pulse Rate 43 L 43 L 49 L Pulse Rate [ From Monitor] Pulse Rate [ Left] Pulse Rate [ Right] Respiratory 26 H 25 H 25 H Rate Blood Pressure 125/51 143/65 172/63 O2 Sat by Pulse 96 96 99 Oximetry 02/14/21 02/14/21 02/14/21 08:10 08:20 08:30 Temperature Pulse Rate 44 L 47 L 47 L Pulse Rate [ From Monitor] Pulse Rate [ Left] Pulse Rate [ Right] Respiratory 23 25 H 21 Rate Blood Pressure 135/69 140/59 125/51 O2 Sat by Pulse 96 97 96 Oximetry 02/14/21 02/14/21 02/14/21 08:40 08:50 09:00 Temperature Pulse Rate 54 L 59 L 53 L Pulse Rate [ 43 L From Monitor] Pulse Rate [ 43 L Left] Pulse Rate [ 43 L Right] Respiratory 17 22 20 Rate Blood Pressure 188/76 200/78 200/78 O2 Sat by Pulse 97 91 90 Oximetry 02/14/21 02/14/21 02/14/21 09:10 09:20 09:30 Temperature Pulse Rate 50 L 49 L 53 L Pulse Rate [ From Monitor] Pulse Rate [ Left] Pulse Rate [ Right] Respiratory 25 H 25 H 19 Rate Blood Pressure 171/42 172/63 189/75 O2 Sat by Pulse 98 99 99 Oximetry 02/14/21 02/14/21 02/14/21 09:40 09:50 10:00 Temperature Pulse Rate 55 L 54 L 54 L Pulse Rate [ From Monitor] Pulse Rate [ Left] Pulse Rate [ Right] Respiratory 24 25 H 25 H Rate Blood Pressure 189/75 179/78 176/80 O2 Sat by Pulse 98 99 98 Oximetry 02/14/21 02/14/21 02/14/21 10:10 10:20 12:08 Temperature 97.3 F L Pulse Rate 54 L 53 L Pulse Rate [ From Monitor] Pulse Rate [ Left] Pulse Rate [ Right] Respiratory 24 25 H Rate Blood Pressure 176/80 175/79 O2 Sat by Pulse 98 98 Oximetry Constitutional: no acute distress, other (elderly lady without significant patient ventilator dyssynchrony) Eyes: non-icteric ENT: oropharynx moist, other (ETT 24 cm JANETH) Neck: supple, no lymphadenopathy, no JVD, other (large circumference) Effort: mildly labored Ascultation: Bilateral: diminished breath sounds, rales Percussion: Bilateral: not dull Cardiovascular: regular rate and rhythm Gastrointestinal: normoactive bowel sounds, soft, non-tender, non-distended Integumentary: normal Extremities: no edema, pulses normal, no ischemia or petechiae, edema Neurologic: non-focal exam (grossly), pupils equal and round, CN II-XII normal, motor strength normal and Psychiatric: mood appropriate, affect normal CBC and BMP: 02/15/21 05:00 02/15/21 05:00 ABG, PT/INR, D-dimer: ABG ABG pH 7.441 (7.320-7.450) 02/13/21 21:00 POC ABG pCO2 42.0 mmHg (32.0-48.0) 02/13/21 21:00 POC ABG pO2 44.5 mmHg (83-108) L 02/13/21 21:00 POC ABG HCO3 28.0 02/13/21 21:00 ABG O2 Saturation 78.8 (0-100) 02/13/21 21:00 PT/INR, D-dimer PT 15.3 Sec. (12.2-14.9) H 02/13/21 16:27 INR 1.16 (0.87-1.13) H 02/13/21 16:27 D-Dimer 1007.53 ng/mlDDU (0-234) H 02/14/21 10:40 Abnormal lab findings: Abnormal Labs 02/13/21 02/13/21 02/13/21 13:28 13:28 13:28 MCH 25 L RDW 15.7 H Lymph % (Auto) 5.9 L Lymph # (Auto) 0.3 L Seg Neutrophils % 89.3 H PT 15.0 H INR APTT 23.8 L D-Dimer 478.95 H Heparin Anti-Xa Level ABG pH POC ABG pO2 ABG Hemoglobin ABG Oxyhemoglobin ABG Glucose Potassium 5.1 H Chloride 95.7 L BUN 36 H Creatinine 2.0 H Glucose 172 H POC Glucose Lactic Acid Calcium 7.5 L Magnesium Ferritin AST 81 H Lactate Dehydrogenase Total Creatine Kinase 1572 H Troponin T C-Reactive Protein NT-Pro-B Natriuret Pep Albumin 3.4 L Triglycerides TSH Arterial Blood Glucose Arterial Blood Ionized Calcium Urine WBC (Auto) Salicylates Acetaminophen 02/13/21 02/13/21 02/13/21 13:28 13:28 13:28 MCH RDW Lymph % (Auto) Lymph # (Auto) Seg Neutrophils % PT INR APTT D-Dimer Heparin Anti-Xa Level ABG pH POC ABG pO2 ABG Hemoglobin ABG Oxyhemoglobin ABG Glucose Potassium Chloride BUN Creatinine Glucose POC Glucose Lactic Acid 6.50 H* Calcium Magnesium Ferritin AST Lactate Dehydrogenase Total Creatine Kinase Troponin T C-Reactive Protein NT-Pro-B Natriuret Pep Albumin Triglycerides TSH 8.530 H Arterial Blood Glucose Arterial Blood Ionized Calcium Urine WBC (Auto) Salicylates < 0.3 L Acetaminophen 02/13/21 02/13/21 02/13/21 13:28 13:28 13:36 MCH RDW Lymph % (Auto) Lymph # (Auto) Seg Neutrophils % PT INR APTT D-Dimer Heparin Anti-Xa Level ABG pH POC ABG pO2 ABG Hemoglobin ABG Oxyhemoglobin ABG Glucose Potassium Chloride BUN Creatinine Glucose 176 H POC Glucose Lactic Acid Calcium Magnesium 2.60 H Ferritin AST Lactate Dehydrogenase 713 H Total Creatine Kinase Troponin T C-Reactive Protein 30.70 H NT-Pro-B Natriuret Pep Albumin Triglycerides TSH Arterial Blood Glucose Arterial Blood Ionized Calcium Urine WBC (Auto) Salicylates Acetaminophen 5.0 L 02/13/21 02/13/21 02/13/21 13:36 13:36 14:18 MCH RDW Lymph % (Auto) Lymph # (Auto) Seg Neutrophils % PT INR APTT D-Dimer Heparin Anti-Xa Level ABG pH 7.528 H POC ABG pO2 49.8 L ABG Hemoglobin 11.8 L ABG Oxyhemoglobin 85.8 L ABG Glucose 180 H Potassium Chloride BUN Creatinine Glucose POC Glucose Lactic Acid Calcium Magnesium Ferritin 1667.0 H AST Lactate Dehydrogenase Total Creatine Kinase Troponin T C-Reactive Protein NT-Pro-B Natriuret Pep 3473 H Albumin Triglycerides TSH Arterial Blood Glucose 180 H Arterial Blood Ionized Calcium 3.7 L Urine WBC (Auto) Salicylates Acetaminophen 02/13/21 02/13/21 02/13/21 16:27 16:27 16:27 MCH RDW Lymph % (Auto) Lymph # (Auto) Seg Neutrophils % PT 15.3 H INR 1.16 H APTT D-Dimer Heparin Anti-Xa Level ABG pH POC ABG pO2 ABG Hemoglobin ABG Oxyhemoglobin ABG Glucose Potassium Chloride BUN Creatinine Glucose POC Glucose Lactic Acid 5.30 H* Calcium Magnesium Ferritin AST Lactate Dehydrogenase Total Creatine Kinase Troponin T 0.034 H D C-Reactive Protein NT-Pro-B Natriuret Pep Albumin Triglycerides 181 H TSH Arterial Blood Glucose Arterial Blood Ionized Calcium Urine WBC (Auto) Salicylates Acetaminophen 02/13/21 02/13/21 02/13/21 18:39 18:39 21:00 MCH RDW Lymph % (Auto) Lymph # (Auto) Seg Neutrophils % PT INR APTT D-Dimer Heparin Anti-Xa Level ABG pH POC ABG pO2 44.5 L ABG Hemoglobin ABG Oxyhemoglobin 78.3 L ABG Glucose 181 H Potassium Chloride BUN Creatinine Glucose POC Glucose Lactic Acid 3.80 H* Calcium Magnesium Ferritin AST Lactate Dehydrogenase Total Creatine Kinase Troponin T 0.033 H C-Reactive Protein NT-Pro-B Natriuret Pep Albumin Triglycerides TSH Arterial Blood Glucose 181 H Arterial Blood Ionized Calcium 4.2 L Urine WBC (Auto) Salicylates Acetaminophen 02/13/21 02/14/21 02/14/21 21:27 03:54 03:54 MCH RDW Lymph % (Auto) Lymph # (Auto) Seg Neutrophils % PT INR APTT D-Dimer Heparin Anti-Xa Level 0.96 H ABG pH POC ABG pO2 ABG Hemoglobin ABG Oxyhemoglobin ABG Glucose Potassium Chloride BUN 41 H Creatinine 2.4 H Glucose 210 H POC Glucose Lactic Acid Calcium 7.7 L Magnesium Ferritin AST Lactate Dehydrogenase Total Creatine Kinase Troponin T C-Reactive Protein NT-Pro-B Natriuret Pep Albumin Triglycerides TSH Arterial Blood Glucose Arterial Blood Ionized Calcium Urine WBC (Auto) 31.0 H Salicylates Acetaminophen 02/14/21 02/14/21 02/14/21 10:40 10:40 10:40 MCH RDW Lymph % (Auto) Lymph # (Auto) Seg Neutrophils % PT INR APTT D-Dimer 1007.53 H Heparin Anti-Xa Level ABG pH POC ABG pO2 ABG Hemoglobin ABG Oxyhemoglobin ABG Glucose Potassium Chloride BUN Creatinine Glucose POC Glucose Lactic Acid Calcium Magnesium Ferritin 1148.0 H AST Lactate Dehydrogenase 1381 H Total Creatine Kinase Troponin T C-Reactive Protein 36.70 H NT-Pro-B Natriuret Pep Albumin Triglycerides TSH Arterial Blood Glucose Arterial Blood Ionized Calcium Urine WBC (Auto) Salicylates Acetaminophen 02/14/21 11:33 MCH RDW Lymph % (Auto) Lymph # (Auto) Seg Neutrophils % PT INR APTT D-Dimer Heparin Anti-Xa Level ABG pH POC ABG pO2 ABG Hemoglobin ABG Oxyhemoglobin ABG Glucose Potassium Chloride BUN Creatinine Glucose POC Glucose 265 H Lactic Acid Calcium Magnesium Ferritin AST Lactate Dehydrogenase Total Creatine Kinase Troponin T C-Reactive Protein NT-Pro-B Natriuret Pep Albumin Triglycerides TSH Arterial Blood Glucose Arterial Blood Ionized Calcium Urine WBC (Auto) Salicylates Acetaminophen Chest x-ray: pending (will get once supine) Allied health notes reviewed: nursing
[2021-02-14] MEDS ORDERED: HEPARIN 10,000 UNITS/10 ML VIAL IV PRN (13:18)
[2021-02-14] MEDS: MIDAZOLAM 100 MG in SODIUM CHLORIDE 0.9% 80 ML IV SCH (13:33)
[2021-02-14] MEDS: INSULIN REGULAR, HUMAN 100 UNITS/1 ML SUB-Q SCH ×2 (15:09→18:09)
[2021-02-14] MEDS: HEPARIN/ 0.45% NACL DRIP 25,000 UNIT/500 ML BAG IV SCH (15:42)
[2021-02-14] MEDS: AZITHROMYCIN/NS 500 MG/250 ML 500 MG/250 ML BAG IV SCH (15:42)
[2021-02-14] MEDS: cefTRIAXone/NS 2 GM/100 ML 2 GM/100 ML BAG IV SCH (16:23)
--- NOTE | 2021-02-14 18:19 | XRay Report ---
CHEST 1 VIEW 02/14/2021 5:12 PM INDICATION / CLINICAL INFORMATION: hypoxia. COMPARISON: February 13, 2021 FINDINGS: SUPPORT DEVICES: Stable, satisfactory device positioning. HEART / MEDIASTINUM: No significant abnormality. LUNGS / PLEURA: Persistent and not significantly changed airspace opacities in both lungs. No pneumot horax. ADDITIONAL FINDINGS: No significant additional findings. IMPRESSION: 1. Persistent and not significantly changed airspace opacities within both lungs. Signer Name: Ceasar Machuca DO Signed: 02/14/2021 6:15 PM Workstation Name: [id number]
--- NOTE | 2021-02-14 18:57 | Progress Note ---
Assessment and Plan Assessment and Plan - Patient Problems (1) Septic shock Current Visit: Yes Status: Acute Plan to address problem: Patient on IV dopamine and IV Zithromax and IV Rocephin Pressor support for now Community Living Coach consult appreciated (2) Acute hypoxemic respiratory failure Current Visit: Yes Status: Acute Plan to address problem: Patient intubated and vent protocol (3) Toxic metabolic encephalopathy Current Visit: Yes Status: Acute Plan to address problem: Secondary to sepsis (4) Acute kidney injury (SONIA) with acute tubular necrosis (ATN) Current Visit: Yes Status: Acute Plan to address problem: IV fluid resuscitation therapy, monitor urine output every shift, BMP, repeat BMP in a.m. to monitor serum creatinine as well as GFR. Nephrology consulted (5) Metabolic acidosis Current Visit: Yes Status: Acute Plan to address problem: IV fluid resuscitation therapy, serial lactic acid level, BMP, repeat BMP as per protocol. (6) Pneumonia Current Visit: Yes Status: Acute Plan to address problem: Pneumonia protocol: Chest x-ray, CBC, CMP, IV antibiotic therapy, supplemental oxygen, supportive care. Blood culture. (7) Suspected COVID-19 virus infection Current Visit: Yes Status: Acute Plan to address problem: Covid positive (8) DVT prophylaxis Current Visit: Yes Status: Acute Plan to address problem: SCD to bilateral lower extremities while in bed, prophylactic anticoagulation (9) Advance care planning Current Visit: Yes Status: Acute Plan to address problem: Disease education conducted, care plan discussed, diagnoses discussed, prognosis discussed, patient is full code, patient daughter Cyndy Tinoco acknowledges poor prognosis as well as acknowledges understanding agreement with care plan. Contact phone #[phone]. +30 minutes. Critical care statement The high probability of a clinically significant, sudden or life threatening deterioration of the [cardiac, pulmonary, neuro, renal, infectious disease, endocrine] system(s) required my full and direct attention, intervention and personal management. The aggregate critical care time was [35] minutes. This time is in addition to time spent performing reported procedures but includes the following: [x] Data Review and interpretation [x] Patient assessment and monitoring of vital signs [x] Documentation [x] Medication orders and management Subjective Date of service: 02/14/21 Principal diagnosis: AHRF; ARDS; Pneumonia; PUI COVID-19; OHS; SONIA; Hyperkalemia; AMS Interval history: 70 YO Female with Obesity Hypoventilation Syndrome, HTN, Hypothyroidism presents to ED for evaluation. Patient is intubated and on ventilatory support at the time my evaluation is unable to write history. Patient history provided by EMS staff, ED staff, as well as the patient family was made available by telephone for interview. As per daughter the patient was in her usual state of health around bedtime which was 2100 hrs. The patient was found down and unresponsive this morning. EMS was notified and upon arrival the patient was found to be in respiratory distress with a pulse oximetry of 50%. The patient was transported to [facility] for further care and evaluation of the aforementioned symptoms. The patient was seen and evaluated in the emergency department. All lab and imaging studies reviewed. The patient was found to have a pulse oximetry in the 60s which is consistent with acute hypoxemic respiratory failure. The patient was deemed unable to protect her airway and was intubated and placed on ventilatory support. The patient was found to have a blood pressure of 69/33. The patient was also found to have pneumonia on chest x-ray which was complicated by septic shock, metabolic acidosis, toxic metabolic encephalopathy, acute kidney injury. Patient admitted to ICU due to multiple organ system failure. Critical care care team consulted in ED. Patient in itiated on sepsis protocol as well as coronavirus protocol. Patient found to have poor prognosis. Advanced care planning conducted in ED. No prior admission for review. No medication listed at time of admission for reconciliation. 02/14/2021 Patient intubated sedated On vent protocol Septic shock Community Living Coach consult appreciated Objective - Exam Narrative Exam: Patient is intubated and on vent support - Constitutional Vitals: Vital Signs - 12hr 02/14/21 02/14/21 02/14/21 07:00 07:10 07:20 Temperature Pulse Rate 46 L 43 L 46 L Pulse Rate [ From Monitor] Pulse Rate [ Left] Pulse Rate [ Right] Respiratory 19 23 17 Rate Blood Pressure 134/61 145/67 145/67 O2 Sat by Pulse 95 95 97 Oximetry 02/14/21 02/14/21 02/14/21 07:30 07:39 07:40 Temperature 97.6 F Pulse Rate 44 L 43 L Pulse Rate [ From Monitor] Pulse Rate [ Left] Pulse Rate [ Right] Respiratory 25 H 26 H Rate Blood Pressure 145/67 125/51 O2 Sat by Pulse 96 96 Oximetry 02/14/21 02/14/21 02/14/21 07:50 08:00 08:10 Temperature Pulse Rate 43 L 49 L 44 L Pulse Rate [ From Monitor] Pulse Rate [ Left] Pulse Rate [ Right] Respiratory 25 H 25 H 23 Rate Blood Pressure 143/65 172/63 135/69 O2 Sat by Pulse 96 99 96 Oximetry 02/14/21 02/14/21 02/14/21 08:20 08:30 08:40 Temperature Pulse Rate 47 L 47 L 54 L Pulse Rate [ From Monitor] Pulse Rate [ Left] Pulse Rate [ Right] Respiratory 25 H 21 17 Rate Blood Pressure 140/59 125/51 188/76 O2 Sat by Pulse 97 96 97 Oximetry 02/14/21 02/14/21 02/14/21 08:50 09:00 09:10 Temperature Pulse Rate 59 L 53 L 50 L Pulse Rate [ 43 L From Monitor] Pulse Rate [ 43 L Left] Pulse Rate [ 43 L Right] Respiratory 22 20 25 H Rate Blood Pressure 200/78 200/78 171/42 O2 Sat by Pulse 91 90 98 Oximetry 02/14/21 02/14/21 02/14/21 09:20 09:30 09:40 Temperature Pulse Rate 49 L 53 L 55 L Pulse Rate [ From Monitor] Pulse Rate [ Left] Pulse Rate [ Right] Respiratory 25 H 19 24 Rate Blood Pressure 172/63 189/75 189/75 O2 Sat by Pulse 99 99 98 Oximetry 02/14/21 02/14/21 02/14/21 09:50 10:00 10:10 Temperature Pulse Rate 54 L 54 L 54 L Pulse Rate [ From Monitor] Pulse Rate [ Left] Pulse Rate [ Right] Respiratory 25 H 25 H 24 Rate Blood Pressure 179/78 176/80 176/80 O2 Sat by Pulse 99 98 98 Oximetry 02/14/21 02/14/21 02/14/21 10:20 10:30 10:40 Temperature Pulse Rate 53 L 53 L 53 L Pulse Rate [ From Monitor] Pulse Rate [ Left] Pulse Rate [ Right] Respiratory 25 H 25 H 24 Rate Blood Pressure 175/79 179/72 179/72 O2 Sat by Pulse 98 98 98 Oximetry 02/14/21 02/14/21 02/14/21 10:50 11:00 11:10 Temperature Pulse Rate 52 L 53 L 53 L Pulse Rate [ From Monitor] Pulse Rate [ Left] Pulse Rate [ Right] Respiratory 25 H 25 H 24 Rate Blood Pressure 176/79 176/78 176/78 O2 Sat by Pulse 98 98 98 Oximetry 02/14/21 02/14/21 02/14/21 11:20 11:30 11:40 Temperature Pulse Rate 53 L 54 L 52 L Pulse Rate [ From Monitor] Pulse Rate [ Left] Pulse Rate [ Right] Respiratory 25 H 25 H 24 Rate Blood Pressure 175/81 176/82 176/82 O2 Sat by Pulse 98 97 97 Oximetry 02/14/21 02/14/21 02/14/21 11:50 12:00 12:08 Temperature 97.3 F L Pulse Rate 52 L 53 L Pulse Rate [ From Monitor] Pulse Rate [ Left] Pulse Rate [ Right] Respiratory 25 H 25 H Rate Blood Pressure 175/84 173/81 O2 Sat by Pulse 97 97 Oximetry 02/14/21 02/14/21 02/14/21 12:10 12:20 12:30 Temperature Pulse Rate 52 L 53 L 52 L Pulse Rate [ From Monitor] Pulse Rate [ Left] Pulse Rate [ Right] Respiratory 24 25 H 25 H Rate Blood Pressure 180/77 173/84 180/77 O2 Sat by Pulse 98 97 98 Oximetry 02/14/21 02/14/21 02/14/21 12:40 12:50 13:00 Temperature Pulse Rate 53 L 52 L 52 L Pulse Rate [ 55 L From Monitor] Pulse Rate [ 55 L Left] Pulse Rate [ 55 L Right] Respiratory 24 25 H 20 Rate Blood Pressure 180/77 174/80 177/83 O2 Sat by Pulse 98 97 90 Oximetry 02/14/21 02/14/21 02/14/21 13:10 13:20 13:30 Temperature Pulse Rate 54 L 47 L 109 H Pulse Rate [ From Monitor] Pulse Rate [ Left] Pulse Rate [ Right] Respiratory 25 H 25 H 25 H Rate Blood Pressure 177/83 91/48 198/120 O2 Sat by Pulse 97 93 99 Oximetry 02/14/21 02/14/21 02/14/21 13:40 13:50 14:00 Temperature Pulse Rate 108 H 104 H 99 H Pulse Rate [ From Monitor] Pulse Rate [ Left] Pulse Rate [ Right] Respiratory 24 25 H 25 H Rate Blood Pressure 181/113 176/112 173/108 O2 Sat by Pulse 99 98 98 Oximetry 02/14/21 02/14/2102/14/21 14:10 14:20 14:30 Temperature Pulse Rate 94 H 89 84 Pulse Rate [ From Monitor] Pulse Rate [ Left] Pulse Rate [ Right] Respiratory 25 H 25 H 25 H Rate Blood Pressure 173/108 172/102 173/99 O2 Sat by Pulse 98 98 98 Oximetry 02/14/21 02/14/21 02/14/21 14:40 14:50 15:00 Temperature Pulse Rate 79 74 70 Pulse Rate [ From Monitor] Pulse Rate [ Left] Pulse Rate [ Right] Respiratory 25 H 25 H 25 H Rate Blood Pressure 172/102 166/101 161/107 O2 Sat by Pulse 98 97 97 Oximetry 02/14/21 02/14/21 02/14/21 15:05 15:10 15:20 Temperature Pulse Rate 70 67 64 Pulse Rate [ From Monitor] Pulse Rate [ Left] Pulse Rate [ Right] Respiratory 25 H 25 H Rate Blood Pressure 161/107 161/107 155/108 O2 Sat by Pulse 97 97 97 Oximetry 02/14/21 02/14/21 02/14/21 15:30 15:40 15:50 Temperature Pulse Rate 63 61 68 Pulse Rate [ From Monitor] Pulse Rate [ Left] Pulse Rate [ Right] Respiratory 25 H 25 H 25 H Rate Blood Pressure 160/89 160/89 172/96 O2 Sat by Pulse 97 97 98 Oximetry 02/14/21 02/14/21 02/14/21 16:00 16:10 16:20 Temperature Pulse Rate 66 66 64 Pulse Rate [ From Monitor] Pulse Rate [ Left] Pulse Rate [ Right] Respiratory 25 H 25 H 25 H Rate Blood Pressure 149/87 149/87 141/88 O2 Sat by Pulse 97 97 97 Oximetry 02/14/21 02/14/21 02/14/21 16:30 16:40 16:50 Temperature Pulse Rate 65 65 56 L Pulse Rate [ From Monitor] Pulse Rate [ Left] Pulse Rate [ Right] Respiratory 25 H 25 H 25 H Rate Blood Pressure 143/87 143/87 115/76 O2 Sat by Pulse 98 98 96 Oximetry 02/14/21 17:00 Temperature 97.1 F L Pulse Rate 56 L Pulse Rate [ 55 L From Monitor] Pulse Rate [ 55 L Left] Pulse Rate [ 55 L Right] Respiratory 25 H Rate Blood Pressure 143/88 O2 Sat by Pulse 97 Oximetry General appearance: Present: mild distress, well-nourished - EENT Eyes: PERRL, EOM intact Ears: bilateral: normal - Neck Neck: supple, normal ROM - Respiratory Respiratory effort: normal Respiratory: bilateral: CTA - Breasts Breasts: normal - Cardiovascular Heart rate: 88 Rhythm: regular Heart Sounds: Present: S1 & S2. Absent: gallop, rub Extremities: pulses intact, No edema, normal color, Full ROM - Gastrointestinal General gastrointestinal: Present: soft, non-tender, non-distended, normal bowel sounds - Genitourinary Female genitourinary: normal - Integumentary Integumentary: clear, warm, dry - Neurologic Neurologic: moves all extremities, other (Patient sedated) - Psychiatric Psychiatric: other (Patient sedated) - Labs CBC & Chem 7: 02/15/21 05:00 02/15/21 05:00 Labs: Abnormal lab results 02/13/21 02/13/21 02/13/21 Range/Units 18:39 18:39 21:00 D-Dimer (0-234) ng/mlDDU Heparin Anti-Xa Level (0.3-0.7) U.I./ml ABG pH (7.320-7.450) POC ABG pCO2 (32.0-48.0) mmHg POC ABG pO2 44.5 L (83-108) mmHg ABG Oxyhemoglobin 78.3 L (94-98) ABG Glucose 181 H (65-95) mg/dL BUN (7-17) mg/dL Creatinine (0.6-1.2) mg/dL Glucose (65-100) mg/dL POC Glucose (70-105) mg/dL Lactic Acid 3.80 H* (0.7-2.0) mmol/L Calcium (8.4-10.2) mg/dL Ferritin (10.0-200.0) ng/mL Lactate Dehydrogenase (91-180) units/L Troponin T 0.033 H (0.00-0.029) ng/mL C-Reactive Protein (0.00-1.30) mg/dL Arterial Blood Glucose 181 H (65-95) mg/dL Arterial Blood Ionized Calcium 4.2 L (4.6-5.3) mg/dL Urine WBC (Auto) (0.0-6.0) /HPF Coronavirus (PCR) (Negative) 02/13/21 02/14/21 02/14/21 Range/Units 21:27 03:54 03:54 D-Dimer (0-234) ng/mlDDU Heparin Anti-Xa Level 0.96 H (0.3-0.7) U.I./ml ABG pH (7.320-7.450) POC ABG pCO2 (32.0-48.0) mmHg POC ABG pO2 (83-108) mmHg ABG Oxyhemoglobin (94-98) ABG Glucose (65-95) mg/dL BUN 41 H (7-17) mg/dL Creatinine 2.4 H (0.6-1.2) mg/dL Glucose 210 H (65-100) mg/dL POC Glucose (70-105) mg/dL Lactic Acid (0.7-2.0) mmol/L Calcium 7.7 L (8.4-10.2) mg/dL Ferritin (10.0-200.0) ng/mL Lactate Dehydrogenase (91-180) units/L Troponin T (0.00-0.029) ng/mL C-Reactive Protein (0.00-1.30) mg/dL Arterial Blood Glucose (65-95) mg/dL Arterial Blood Ionized Calcium (4.6-5.3) mg/dL Urine WBC (Auto) 31.0 H (0.0-6.0) /HPF Coronavirus (PCR) (Negative) 02/14/21 02/14/21 02/14/21 Range/Units 10:40 10:40 10:40 D-Dimer 1007.53 H (0-234) ng/mlDDU Heparin Anti-Xa Level (0.3-0.7) U.I./ml ABG pH (7.320-7.450) POC ABG pCO2 (32.0-48.0) mmHg POC ABG pO2 (83-108) mmHg ABG Oxyhemoglobin (94-98) ABG Glucose (65-95) mg/dL BUN (7-17) mg/dL Creatinine (0.6-1.2) mg/dL Glucose (65-100) mg/dL POC Glucose (70-105) mg/dL Lactic Acid (0.7-2.0) mmol/L Calcium (8.4-10.2) mg/dL Ferritin 1148.0 H (10.0-200.0) ng/mL Lactate Dehydrogenase 1381 H (91-180) units/L Troponin T (0.00-0.029) ng/mL C-Reactive Protein 36.70 H (0.00-1.30) mg/dL Arterial Blood Glucose (65-95) mg/dL Arterial Blood Ionized Calcium (4.6-5.3) mg/dL Urine WBC (Auto) (0.0-6.0) /HPF Coronavirus (PCR) (Negative) 02/14/21 02/14/21 02/14/21 Range/Units 11:33 17:51 18:00 D-Dimer (0-234) ng/mlDDU Heparin Anti-Xa Level (0.3-0.7) U.I./ml ABG pH 7.285 L (7.320-7.450) POC ABG pCO2 51.7 H (32.0-48.0) mmHg POC ABG pO2 36.7 L (83-108) mmHg ABG Oxyhemoglobin 57.9 L (94-98) ABG Glucose 310 H (65-95) mg/dL BUN (7-17) mg/dL Creatinine (0.6-1.2) mg/dL Glucose (65-100) mg/dL POC Glucose 265 H 260 H (70-105) mg/dL Lactic Acid (0.7-2.0) mmol/L Calcium (8.4-10.2) mg/dL Ferritin (10.0-200.0) ng/mL Lactate Dehydrogenase (91-180) units/L Troponin T (0.00-0.029) ng/mL C-Reactive Protein (0.00-1.30) mg/dL Arterial Blood Glucose 310 H (65-95) mg/dL Arterial Blood Ionized Calcium 3.9 L (4.6-5.3) mg/dL Urine WBC (Auto) (0.0-6.0) /HPF Coronavirus (PCR) (Negative) 02/14/21 02/14/21 Range/Units 18:15 Unknown D-Dimer (0-234) ng/mlDDU Heparin Anti-Xa Level (0.3-0.7) U.I./ml ABG pH (7.320-7.450) POC ABG pCO2 (32.0-48.0) mmHg POC ABG pO2 41.4 L (83-108) mmHg ABG Oxyhemoglobin 70.5 L (94-98) ABG Glucose 308 H (65-95) mg/dL BUN (7-17) mg/dL Creatinine (0.6-1.2) mg/dL Glucose (65-100) mg/dL POC Glucose (70-105) mg/dL Lactic Acid (0.7-2.0) mmol/L Calcium (8.4-10.2) mg/dL Ferritin (10.0-200.0) ng/mL Lactate Dehydrogenase (91-180) units/L Troponin T (0.00-0.029) ng/mL C-Reactive Protein (0.00-1.30) mg/dL Arterial Blood Glucose 308 H (65-95) mg/dL Arterial Blood Ionized Calcium 4.0 L (4.6-5.3) mg/dL Urine WBC (Auto) (0.0-6.0) /HPF Coronavirus (PCR) Positive A (Negative) HEART Score - HEART Score Troponin: Troponin T 0.033 ng/mL (0.00-0.029) H 02/13/21 18:39
--- NOTE | 2021-02-15 00:03 | XRay Report ---
Abdomen single view INDICATION: Abdominal pain IMPRESSION: Esophagogastric tube terminates within the proximal to mid stomach. Signer Name: Malachi Hernandez MD Signed: 02/14/2021 11:59 PM Workstation Name: [id number]
[2021-02-15] MEDS: INSULIN REGULAR, HUMAN 100 UNITS/1 ML SUB-Q SCH ×4 (00:43→18:00)
[2021-02-15] MEDS: methylPREDNISolone Sod Succinate 125 MG/2 ML INJ IV SCH ×3 (00:46→17:11)
--- NOTE | 2021-02-15 01:40 | XRay Report ---
CHEST 1 VIEW INDICATION / CLINICAL INFORMATION: follow up respiratory failure. FINDINGS: SUPPORT DEVICES: The esophagogastric tube terminates in the region of the upper stomach. Otherwise, n o significant change in position. HEART / MEDIASTINUM: The cardiomediastinal silhouette has not significantly changed in the interim. No significant change in bilateral airspace disease. No pneumothorax. LUNGS / PLEURA: Signer Name: Malachi Hernandez MD Signed: 02/15/2021 1:36 AM Workstation Name: [id number]
[2021-02-15] MEDS: fentaNYL DRIP Premix 2,000 MCG/100 ML BAG IV SCH ×3 (03:39→21:07)
[2021-02-15 05:12] LABS: Hematocrit 36.6 % (30.3-42.9); Hemoglobin 11.7 gm/dl (10.1-14.3); Mean Corpuscular HGB Conc 32 % (30-34); Mean Corpuscular Volume 77 fl (79-97); Platelet Count 218 K/mm3 (140-440); Red Blood Count 4.76 M/mm3 (3.65-5.03); Red Cell Distribution Width 16.1 % (13.2-15.2)
--- NOTE | 2021-02-15 07:48 | Progress Note ---
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 Unresponsive and obtunded HEAD: Normocephalic. No obvious signs of trauma. ENT: Dry mucous membranes. Bag valve mask applied EYES: Pupils are constricted bilaterally but remain reactive. NECK: Trachea is midline. LUNGS: Bilateral breath sounds with [id number] ventilation. There are scattered rales throughout. CARDIOVASCULAR: Regular rate and rhythm. 3/6 systolic murmur VASCULAR: Cap refill < 2 seconds ABDOMEN: Abdomen is soft and nondistended. There is central adiposity SKIN: Skin is warm and dry NEURO: Patient is obtunded and unresponsive even to pain. GCS is 3 MUSCULOSKELETAL: No obvious deformities. - Vital Signs Vital signs: Vital Signs - 12hr 02/14/21 02/14/21 02/14/21 19:50 20:00 20:10 Temperature Pulse Rate 54 L 53 L 54 L Pulse Rate [ From Monitor] Pulse Rate [ Left] Pulse Rate [ Right] Respiratory 25 H 25 H 25 H Rate Blood Pressure 147/82 148/86 148/86 O2 Sat by Pulse 99 99 98 Oximetry 02/14/21 02/14/21 02/14/21 20:20 20:24 20:30 Temperature 97.5 F L Pulse Rate 53 L 53 L Pulse Rate [ From Monitor] Pulse Rate [ Left] Pulse Rate [ Right] Respiratory 25 H 25 H Rate Blood Pressure 155/86 155/87 O2 Sat by Pulse 99 99 Oximetry 02/14/21 02/14/21 02/14/21 20:40 20:50 21:00 Temperature Pulse Rate 51 L 51 L 52 L Pulse Rate [ From Monitor] Pulse Rate [ Left] Pulse Rate [ Right] Respiratory 25 H 25 H 25 H Rate Blood Pressure 155/87 156/87 156/88 O2 Sat by Pulse 98 98 99 Oximetry 02/14/21 02/14/21 02/14/21 21:06 21:10 21:20 Temperature Pulse Rate 50 L 60 50 L Pulse Rate [ From Monitor] Pulse Rate [ Left] Pulse Rate [ Right] Respiratory 25 H 25 H Rate Blood Pressure 156/88 156/88 133/81 O2 Sat by Pulse 98 94 93 Oximetry 02/14/21 02/14/21 02/14/21 21:30 21:40 21:50 Temperature Pulse Rate 49 L 49 L 50 L Pulse Rate [ From Monitor] Pulse Rate [ Left] Pulse Rate [ Right] Respiratory 25 H 25 H 25 H Rate Blood Pressure 155/85 155/85 158/83 O2 Sat by Pulse 97 98 99 Oximetry 02/14/21 02/14/21 02/14/21 22:00 22:10 22:20 Temperature Pulse Rate 48 L 47 L 58 L Pulse Rate [ From Monitor] Pulse Rate [ Left] Pulse Rate [ Right] Respiratory 25 H 25 H 25 H Rate Blood Pressure 155/84 155/84 155/81 O2 Sat by Pulse 98 98 99 Oximetry 02/14/21 02/14/21 02/14/21 22:30 22:40 22:50 Temperature Pulse Rate 48 L 49 L 47 L Pulse Rate [ From Monitor] Pulse Rate [ Left] Pulse Rate [ Right] Respiratory 25 H 25 H 25 H Rate Blood Pressure 151/80 151/80 150/82 O2 Sat by Pulse 98 99 99 Oximetry 02/14/21 02/14/21 02/14/21 23:00 23:10 23:20 Temperature Pulse Rate 62 48 L 48 L Pulse Rate [ From Monitor] Pulse Rate [ Left] Pulse Rate [ Right] Respiratory 25 H 25 H 25 H Rate Blood Pressure 152/89 152/89 165/86 O2 Sat by Pulse 86 96 97 Oximetry 02/14/21 02/14/21 02/14/21 23:30 23:40 23:50 Temperature Pulse Rate 48 L 50 L 49 L Pulse Rate [ From Monitor] Pulse Rate [ Left] Pulse Rate [ Right] Respiratory 25 H 25 H 25 H Rate Blood Pressure 162/88 162/88 162/89 O2 Sat by Pulse 98 96 95 Oximetry 02/14/21 02/15/21 02/15/21 23:54 00:00 00:10 Temperature Pulse Rate 49 L 49 L 48 L Pulse Rate [ From Monitor] Pulse Rate [ Left] Pulse Rate [ Right] Respiratory 25 H 25 H 25 H Rate Blood Pressure 162/89 162/88 162/88 O2 Sat by Pulse 96 96 97 Oximetry 02/15/21 02/15/21 02/15/21 00:20 00:30 00:40 Temperature Pulse Rate 48 L 48 L 47 L Pulse Rate [ From Monitor] Pulse Rate [ Left] Pulse Rate [ Right] Respiratory 25 H 25 H 25 H Rate Blood Pressure 163/88 162/89 162/89 O2 Sat by Pulse 98 97 99 Oximetry 02/15/21 02/15/21 02/15/21 00:50 01:00 01:10 Temperature 96.4 F L Pulse Rate 47 L 46 L 46 L Pulse Rate [ 46 L From Monitor] Pulse Rate [ 46 L Left] Pulse Rate [ 46 L Right] Respiratory 25 H 25 H 25 H Rate Blood Pressure 162/88 161/85 161/85 O2 Sat by Pulse 99 98 98 Oximetry 02/15/21 02/15/21 02/15/21 01:15 01:20 01:30 Temperature Pulse Rate 42 L 46 L 47 L Pulse Rate [ From Monitor] Pulse Rate [ Left] Pulse Rate [ Right] Respiratory 25 H 25 H Rate Blood Pressure 161/85 152/85 149/83 O2 Sat by Pulse 98 99 98 Oximetry 02/15/21 02/15/21 02/15/21 01:40 01:50 02:00 Temperature Pulse Rate 48 L 45 L 43 L Pulse Rate [ From Monitor] Pulse Rate [ Left] Pulse Rate [ Right] Respiratory 25 H 25 H 25 H Rate Blood Pressure 149/83 149/83 148/84 O2 Sat by Pulse 98 98 99 Oximetry 02/15/21 02/15/21 02/15/21 02:10 02:20 02:30 Temperature Pulse Rate 60 48 L 47 L Pulse Rate [ From Monitor] Pulse Rate [ Left] Pulse Rate [ Right] Respiratory 24 25 H 25 H Rate Blood Pressure 148/84 148/84 148/84 O2 Sat by Pulse 82 L 90 88 Oximetry 02/15/21 02/15/21 02/15/21 02:40 02:50 03:00 Temperature Pulse Rate 47 L 48 L 46 L Pulse Rate [ From Monitor] Pulse Rate [ Left] Pulse Rate [ Right] Respiratory 25 H 25 H 25 H Rate Blood Pressure 124/85 146/75 149/84 O2 Sat by Pulse 89 90 91 Oximetry 02/15/21 02/15/21 02/15/21 03:10 03:20 03:30 Temperature Pulse Rate 50 L 46 L 46 L Pulse Rate [ From Monitor] Pulse Rate [ Left] Pulse Rate [ Right] Respiratory 25 H 25 H 25 H Rate Blood Pressure 149/84 151/83 150/83 O2 Sat by Pulse 92 92 93 Oximetry 02/15/21 02/15/21 02/15/21 03:40 03:46 03:50 Temperature 97.4 F L Pulse Rate 48 L 51 L Pulse Rate [ From Monitor] Pulse Rate [ Left] Pulse Rate [ Right] Respiratory 25 H 25 H Rate Blood Pressure 150/83 151/83 O2 Sat by Pulse 93 93 Oximetry 02/15/21 02/15/21 02/15/21 04:00 04:10 04:20 Temperature Pulse Rate 49 L 47 L 50 L Pulse Rate [ From Monitor] Pulse Rate [ Left] Pulse Rate [ Right] Respiratory 25 H 25 H 25 H Rate Blood Pressure 144/83 144/83 146/84 O2 Sat by Pulse 93 93 93 Oximetry 02/15/21 02/15/21 02/15/21 04:30 04:40 04:50 Temperature Pulse Rate 49 L 52 L 52 L Pulse Rate [ From Monitor] Pulse Rate [ Left] Pulse Rate [ Right] Respiratory 25 H 25 H 25 H Rate Blood Pressure 140/79 140/79 116/67 O2 Sat by Pulse 92 92 77 L Oximetry 02/15/21 02/15/21 02/15/21 05:00 05:10 05:20 Temperature Pulse Rate 49 L 51 L 52 L Pulse Rate [ 60 From Monitor] Pulse Rate [ 55 L Left] Pulse Rate [ 55 L Right] Respiratory 25 H 25 H 25 H Rate Blood Pressure 126/73 126/73 129/81 O2 Sat by Pulse 96 97 97 Oximetry 02/15/21 02/15/21 02/15/21 05:30 05:40 05:50 Temperature Pulse Rate 53 L 53 L 55 L Pulse Rate [ From Monitor] Pulse Rate [ Left] Pulse Rate [ Right] Respiratory 25 H 25 H 25 H Rate Blood Pressure 139/79 139/79 136/80 O2 Sat by Pulse 98 98 99 Oximetry 02/15/21 02/15/21 02/15/21 06:00 06:10 06:20 Temperature Pulse Rate 55 L 56 L 57 L Pulse Rate [ From Monitor] Pulse Rate [ Left] Pulse Rate [ Right] Respiratory 25 H 25 H 25 H Rate Blood Pressure 133/74 133/74 131/72 O2 Sat by Pulse 98 99 99 Oximetry 02/15/21 02/15/21 02/15/21 06:30 06:40 06:50 Temperature Pulse Rate 58 L 59 L 60 Pulse Rate [ From Monitor] Pulse Rate [ Left] Pulse Rate [ Right] Respiratory 25 H 25 H 25 H Rate Blood Pressure 131/74 131/74 118/70 O2 Sat by Pulse 99 95 97 Oximetry 02/15/21 02/15/21 02/15/21 07:00 07:10 07:20 Temperature Pulse Rate 60 61 62 Pulse Rate [ From Monitor] Pulse Rate [ Left] Pulse Rate [ Right] Respiratory 25 H 25 H 25 H Rate Blood Pressure 129/69 129/69 124/73 O2 Sat by Pulse 98 98 99 Oximetry 02/15/21 07:30 Temperature Pulse Rate 61 Pulse Rate [ From Monitor] Pulse Rate [ Left] Pulse Rate [ Right] Respiratory 25 H Rate Blood Pressure 126/71 O2 Sat by Pulse 98 Oximetry - Lab 02/15/21 05:00 02/15/21 05:00 Most recent lab results ABG pH 7.383 (7.320-7.450) 02/15/21 04:07 ABG O2 Saturation 85.5 (0-100) 02/15/21 04:07 Calcium 7.0 mg/dL (8.4-10.2) L 02/15/21 05:00 Magnesium 2.60 mg/dL (1.7-2.3) H 02/13/21 13:28 Urine Creatinine 80.0 mg/dL (0.1-20.0) H 02/14/21 18:45 Urine Sodium 33 mmol/L 02/14/21 18:45 Medications & Allergies - Medications Allergies/Adverse Reactions: Allergies Penicillins Adverse Reaction (Verified 02/13/21 15:39) Unknown Home Medications: Home Medications Medication Instructions Recorded Confirmed Last Taken Type Insulin NPH Hum/Reg Insulin Hm See Protocol SQ DAILY 02/13/21 02/13/21 Unknown History [Novolin 70-30 100 Unit/ml Vial] metFORMIN [Glucophage] 500 mg PO TID 02/13/21 02/13/21 Unknown History Active Medications: Generic Name Dose Route Start Last Admin Trade Name Freq PRN Reason Stop Dose Admin Acetaminophen 650 mg 02/13/21 15:22 Acetaminophen 325 Mg Tab PO Q6H PRN Pain, Mild (1-3) Acetaminophen 650 mg 02/13/21 15:22 02/13/21 20:30 Acetaminophen 650 Mg Rect Supp CO 650 mg Q6H PRN Administration Pain MILD(1-3)/Fever >100.5/ZACARIAS Albuterol 2.5 mg 02/13/21 15:22 Albuterol 2.5 Mg/3 Ml Nebu IH Q3H PRN Shortness Of Breath Lipase/Protease/Amylase 1 each 02/14/21 10:43 Lipase 10,500/Protease 25,000/Amylase 43,750 (Units) Dr Iqbal FEEDTUBE PRN PRN For Clogged Feeding Tube Ascorbic Acid 500 mg 02/13/21 22:00 02/14/21 23:24 Ascorbic Acid 500 Mg Tab PO Not Given BID RUDY Cholecalciferol 1,000 unit 02/13/21 16:00 02/14/21 09:10 Cholecalciferol (Vit D3) 1000 Unit (25 Mcg) Tab PO Not Given QDAY RUDY Dextrose 50 ml 02/14/21 11:15 Dextrose 50% In Water (25gm) 50 Ml Syringe IV Q30MIN PRN Hypoglycemia Protocol Famotidine 20 mg 02/14/21 10:00 02/14/21 11:44 Famotidine 20 Mg/2 Ml Inj IV 20 mg DAILY RUDY Administration Fentanyl 50 mcg 02/13/21 16:05 Fentanyl 100 Mcg/2 Ml Inj IV Q10MIN PRN ANALGESIA Heparin Sodium (Porcine) 4,400 unit 02/14/21 13:18 Heparin 10,000 Units/10 Ml Vial 40 unit/kg (4400 unit) IV Q6H PRN Anti-Xa Assay < 0.1 units/ml Hydromorphone HCl 0.25 mg 02/13/21 15:22 Hydromorphone 1 Mg/1 Ml Inj IV Q4H PRN Pain, Moderate (4-6) Hydromorphone HCl 0.5 mg 02/13/21 15:22 Hydromorphone 1 Mg/1 Ml Inj IV Q12H PRN Pain , Severe (7-10) Hydrophilic Ointment 1 applic 02/13/21 22:52 Lip Therapy Vaseline TP Q2HR PRN Dry Lips Ceftriaxone Sodium 2 gm in 100 mls @ 200 mls/hr 02/13/21 16:00 02/14/21 16:23 Rocephin/Ns 2 Gm/100 Ml IV 200 mls/hr Q24H RUDY Administration Protocol Azithromycin 500 mg in 250 mls @ 250 mls/hr 02/14/21 15:00 02/14/21 15:42 Zithromax/Ns IV 250 mls/hr Q24H RUDY Administration Protocol Heparin Sodium/Sodium Chloride 25,000 unit in 500 mls @ 30 mls/hr 02/13/21 17:00 02/15/21 06:57 Heparin/ 0.45% Nacl-25,000 Unit/500 Ml IV 0 units/hr TITR RUDY 0 mls/hr Titration Protocol 1,500 UNITS/HR Fentanyl Citrate 2,000 mcg in 100 mls @ 5.55 mls/hr 02/13/21 17:00 02/15/21 03:39 Fentanyl Drip Premix IV 2 mcg/kg/hr TITR RUDY 11.1 mls/hr Administration Protocol 1 MCG/KG/HR Norepinephrine 4 mg in 250 mls @ 75 mls/hr 02/13/21 18:00 02/14/21 01:55 Levophed Drip 4 Mg/Ns 250 Ml IV 0 mcg/min TITR RUDY 0 mls/hr Titration Protocol 20 MCG/MIN Propofol 1,000 mg in 100 mls @ 3.33 mls/hr 02/13/21 23:00 02/14/21 19:31 Diprivan 10 Mg/Ml IV 10 mcg/kg/min TITR RUDY 6.66 mls/hr Titration Protocol 5 MCG/KG/MIN Midazolam HCl 100 mg/ Sodium 100 mls @ 1 mls/hr 02/14/21 09:00 02/15/21 02:30 Chloride IV 0 mg/hr TITR RUDY 0 mls/hr Titration Protocol 1 MG/HR Dopamine HCl/Dextrose 800 mg in 250 mls @ 4.163 mls/hr 02/14/21 09:00 02/15/21 02:30 Intropin Drip 800 Mg/D5w 250 Ml IV 8 mcg/kg/min TITR RUDY 16.65 mls/hr Titration Protocol 2 MCG/KG/MIN Insulin Human Regular 0 units 02/14/21 12:00 02/15/21 06:35 Insulin Regular, Human 100 Units/1 Ml SUB-Q 3 units Q6H RUDY Administration Protocol Methylprednisolone Sodium Succinate 40 mg 02/15/21 01:00 02/15/21 00:46 Methylprednisolone Sod Succinate 125 Mg/2 Ml Inj IV 40 mg Q8H RUDY Administration Midazolam HCl 2 mg 02/14/21 08:24 Midazolam 2 Mg/2 Ml Inj IV Q10MIN PRN Sedation Multi-Ingred Cream/Lotion/Oil/Oint 1 applic 02/13/21 16:05 Mineral Oil/Petrolatum, White Ophth Oint 3.5 Gm OU Q4H PRN Dry Eye(s) Senna/Docusate Sodium 1 tab 02/13/21 22:00 02/14/21 23:23 Sennosides/Docusate Sodium 8.6/50 Mg Tab FEEDTUBE Not Given BID RUDY Simple Syrup 15 ml 02/14/21 10:43 Simple Syrup 15 Ml FEEDTUBE PRN PRN Hypoglycemia Simple Syrup 30 ml 02/14/21 10:43 Simple Syrup 15 Ml FEEDTUBE PRN PRN Hypoglycemia Sodium Bicarbonate 325 mg 02/14/21 10:43 Sodium Bicarbonate 325 Mg Tab FEEDTUBE PRN PRN For Clogged Feeding Tube Sodium Chloride 10 ml 02/13/21 22:00 02/14/21 23:23 Sodium Chloride 0.9% 10 Ml Flush Syringe IV 10 ml BID RUDY Administration Sodium Chloride 10 ml 02/13/21 15:22 Sodium Chloride 0.9% 10 Ml Flush Syringe IV PRN PRN LINE FLUSH Zinc Sulfate 220 mg 02/13/21 22:00 02/14/21 23:24 Zinc Sulfate 220 Mg Cap PO Not Given BID RUDY
[2021-02-15] MEDS: CHOLECALCIFEROL (VIT D3) 1000 UNIT (25 mcg) TAB PO SCH (11:37)
[2021-02-15] MEDS: SENNOSIDES/DOCUSATE SODIUM 8.6/50 MG TAB FEEDTUBE SCH ×2 (11:37→21:08)
[2021-02-15] MEDS: ZINC SULFATE 220 MG CAP PO SCH ×2 (11:37→21:08)
[2021-02-15] MEDS: ASCORBIC ACID 500 MG TAB PO SCH ×2 (11:37→21:08)
[2021-02-15] MEDS: FAMOTIDINE 20 MG/2 ML INJ IV SCH (11:37)
[2021-02-15] MEDS: DOPamine/D5W 800 MG/250 ML 800 MG/250 ML BAG IV SCH (12:56)
--- NOTE | 2021-02-15 13:15 | Progress Note ---
Assessment and Plan Acute hypoxemic respiratory failure Acute respiratory distress syndrome Bilateral pneumonia PUI COVID-19 Obesity hypoventilation syndrome Acute kidney injuryElevated serum inflammatory markers to include D-dimers, ferritin, LDH, CRP Hyperkalemia Lactic acidosis Probable rhabdomyolysis Acute encephalopathy - resume Versed (RASS -2 to -3) - wean off Propofol re: bradycardia - wean vasopressors for target MAP > 65 mmHg and dopamine for target HR > 55- 60/min - azotemia worse; appreciate nephrology input (non-oliguric) - continue care as below otherwise; - nephrology evaluation ongoing - continue to wean supplemental oxygen for target O2 sat's > 92% acutely - aspiration precautions - continue bronchodilators with pulmonary hygiene per RT - avoid nephrotoxins, renally dose all medications - continue to avoid benzodiazepine's, reduce the possibility of delirium - complete AB's per ID rec's - prn analgesia per pain score - Maintenance of sleep-wake cycle, avoid delirium - G.I. & VTE prophylaxis - PT/OT/ROM exercises - continue mobility protocols for pressure ulcer prophylaxis - Monitor hemodynamics closely - continue other care per attending / other consultants - discharge planning ongoing concurrently COVID SPECIFIC INTERVENTIONS - Remdesivir as per ID/Pulmonary developed protocols (not a candidate re: SONIA) - continue systemic steroids for severe COVID-19 infection (Solumedrol) - follow repeat COVID tests results - zinc and vitamin C supplementation - Monitor inflammatory markers per facility protocol - ferritin, Ddimer, CRP - therapeutic anticoagulation per system Protocol based on d-dimer and clinical considerations (IV Heparin drip) - Continue contact and airborne isolation .... Re-evaluate in am & prn CONDITION: CRITICAL PROGNOSIS: GUARDED CODE STATUS: FULL CODE The high probability of a clinically significant, sudden or life-threatening deterioration of the [respiratory, cardiovascular & neurologic] system(s) required my full and direct attention, intervention and personal management. The aggregate critical care time was [32] minutes without overlap. Time includes spent on; [x] Data Review and interpretation [x] Patient assessment and monitoring of vital signs [x] Documentation [x] Medication orders and management Subjective Date of service: 02/15/21 Principal diagnosis: AHRF; ARDS; Pneumonia; PUI COVID-19; OHS; SONIA; Hyperkalemia; AMS Interval history: Patient is seen today for: Acute hypoxemic respiratory failure; ARDS; Pneumonia; PUI COVID-19; OHS; SONIA; Hyperkalemia; Rhabdomyolysis; Acute encephalopathy Seen and examined at bedside; 24hour events reviewed; nursing and respiratory care staff consulted; no adverse overnight events reported to me; resting in bed; still with occassional zina episodes but not below 50's; no proning overnight but O2 sats in 90's with some room to wean; no emesis or overt aspiration Objective Vital Signs - 12hr 02/15/21 02/15/21 02/15/21 01:20 01:30 01:40 Temperature Pulse Rate 46 L 47 L 48 L Pulse Rate [ From Monitor] Pulse Rate [ Left] Pulse Rate [ Right] Respiratory 25 H 25 H 25 H Rate Blood Pressure 152/85 149/83 149/83 O2 Sat by Pulse 99 98 98 Oximetry 02/15/21 02/15/21 02/15/21 01:50 02:00 02:10 Temperature Pulse Rate 45 L 43 L 60 Pulse Rate [ From Monitor] Pulse Rate [ Left] Pulse Rate [ Right] Respiratory 25 H 25 H 24 Rate Blood Pressure 149/83 148/84 148/84 O2 Sat by Pulse 98 99 82 L Oximetry 02/15/21 02/15/21 02/15/21 02:20 02:30 02:40 Temperature Pulse Rate 48 L 47 L 47 L Pulse Rate [ From Monitor] Pulse Rate [ Left] Pulse Rate [ Right] Respiratory 25 H 25 H 25 H Rate Blood Pressure 148/84 148/84 124/85 O2 Sat by Pulse 90 88 89 Oximetry 02/15/21 02/15/21 02/15/21 02:50 03:00 03:10 Temperature Pulse Rate 48 L 46 L 50 L Pulse Rate [ From Monitor] Pulse Rate [ Left] Pulse Rate [ Right] Respiratory 25 H 25 H 25 H Rate Blood Pressure 146/75 149/84 149/84 O2 Sat by Pulse 90 91 92 Oximetry 02/15/21 02/15/21 02/15/21 03:20 03:30 03:40 Temperature Pulse Rate 46 L 46 L 48 L Pulse Rate [ From Monitor] Pulse Rate [ Left] Pulse Rate [ Right] Respiratory 25 H 25 H 25 H Rate Blood Pressure 151/83 150/83 150/83 O2 Sat by Pulse 92 93 93 Oximetry 02/15/21 02/15/21 02/15/21 03:46 03:50 04:00 Temperature 97.4 F L Pulse Rate 51 L 49 L Pulse Rate [ From Monitor] Pulse Rate [ Left] Pulse Rate [ Right] Respiratory 25 H 25 H Rate Blood Pressure 151/83 144/83 O2 Sat by Pulse 93 93 Oximetry 02/15/21 02/15/21 02/15/21 04:10 04:20 04:30 Temperature Pulse Rate 47 L 50 L 49 L Pulse Rate [ From Monitor] Pulse Rate [ Left] Pulse Rate [ Right] Respiratory 25 H 25 H 25 H Rate Blood Pressure 144/83 146/84 140/79 O2 Sat by Pulse 93 93 92 Oximetry 02/15/21 02/15/21 02/15/21 04:40 04:50 05:00 Temperature Pulse Rate 52 L 52 L 49 L Pulse Rate [ 60 From Monitor] Pulse Rate [ 55 L Left] Pulse Rate [ 55 L Right] Respiratory 25 H 25 H 25 H Rate Blood Pressure 140/79 116/67 126/73 O2 Sat by Pulse 92 77 L 96 Oximetry 02/15/21 02/15/21 02/15/21 05:10 05:20 05:30 Temperature Pulse Rate 51 L 52 L 53 L Pulse Rate [ From Monitor] Pulse Rate [ Left] Pulse Rate [ Right] Respiratory 25 H 25 H 25 H Rate Blood Pressure 126/73 129/81 139/79 O2 Sat by Pulse 97 97 98 Oximetry 02/15/21 02/15/21 02/15/21 05:40 05:50 06:00 Temperature Pulse Rate 53 L 55 L 55 L Pulse Rate [ From Monitor] Pulse Rate [ Left] Pulse Rate [ Right] Respiratory 25 H 25 H 25 H Rate Blood Pressure 139/79 136/80 133/74 O2 Sat by Pulse 98 99 98 Oximetry 02/15/21 02/15/21 02/15/21 06:10 06:20 06:30 Temperature Pulse Rate 56 L 57 L 58 L Pulse Rate [ From Monitor] Pulse Rate [ Left] Pulse Rate [ Right] Respiratory 25 H 25 H 25 H Rate Blood Pressure 133/74 131/72 131/74 O2 Sat by Pulse 99 99 99 Oximetry 02/15/21 02/15/21 02/15/21 06:40 06:50 07:00 Temperature 97.6 F Pulse Rate 59 L 60 60 Pulse Rate [ From Monitor] Pulse Rate [ Left] Pulse Rate [ Right] Respiratory 25 H 25 H 25 H Rate Blood Pressure 131/74 118/70 129/69 O2 Sat by Pulse 95 97 98 Oximetry 02/15/21 02/15/21 02/15/21 07:10 07:20 07:30 Temperature Pulse Rate 61 62 61 Pulse Rate [ From Monitor] Pulse Rate [ Left] Pulse Rate [ Right] Respiratory 25 H 25 H 25 H Rate Blood Pressure 129/69 124/73 126/71 O2 Sat by Pulse 98 99 98 Oximetry 02/15/21 02/15/21 02/15/21 07:40 07:50 08:00 Temperature 97.6 F Pulse Rate 61 62 62 Pulse Rate [ From Monitor] Pulse Rate [ Left] Pulse Rate [ Right] Respiratory 25 H 25 H 25 H Rate Blood Pressure 126/71 124/70 125/70 O2 Sat by Pulse 97 98 97 Oximetry 02/15/21 02/15/21 02/15/21 08:10 08:20 08:30 Temperature Pulse Rate 63 63 63 Pulse Rate [ From Monitor] Pulse Rate [ Left] Pulse Rate [ Right] Respiratory 25 H 25 H 25 H Rate Blood Pressure 125/70 122/70 121/70 O2 Sat by Pulse 98 97 95 Oximetry 02/15/21 02/15/21 02/15/21 08:40 08:50 09:00 Temperature Pulse Rate 63 63 64 Pulse Rate [ From Monitor] Pulse Rate [ Left] Pulse Rate [ Right] Respiratory 25 H 25 H 25 H Rate Blood Pressure 121/70 120/71 120/72 O2 Sat by Pulse 95 96 98 Oximetry 02/15/21 02/15/21 02/15/21 09:10 09:20 09:30 Temperature Pulse Rate 49 L 70 65 Pulse Rate [ From Monitor] Pulse Rate [ Left] Pulse Rate [ Right] Respiratory 20 25 H 25 H Rate Blood Pressure 120/72 102/75 106/73 O2 Sat by Pulse 73 L 90 99 Oximetry 02/15/21 02/15/21 02/15/21 09:34 09:40 09:50 Temperature Pulse Rate 64 53 L 70 Pulse Rate [ From Monitor] Pulse Rate [ Left] Pulse Rate [ Right] Respiratory 17 18 Rate Blood Pressure 106/76 106/73 208/141 O2 Sat by Pulse 99 78 L 74 L Oximetry 02/15/21 02/15/21 02/15/21 10:00 10:10 10:20 Temperature Pulse Rate 63 62 62 Pulse Rate [ From Monitor] Pulse Rate [ Left] Pulse Rate [ Right] Respiratory 25 H 25 H 25 H Rate Blood Pressure 208/141 109/66 112/66 O2 Sat by Pulse 96 97 98 Oximetry 02/15/21 02/15/21 02/15/21 10:30 10:40 10:50 Temperature Pulse Rate 63 63 64 Pulse Rate [ From Monitor] Pulse Rate [ Left] Pulse Rate [ Right] Respiratory 25 H 25 H 25 H Rate Blood Pressure 113/67 113/67 118/67 O2 Sat by Pulse 98 99 99 Oximetry 02/15/21 02/15/21 02/15/21 11:00 11:10 11:20 Temperature Pulse Rate 65 63 62 Pulse Rate [ From Monitor] Pulse Rate [ Left] Pulse Rate [ Right] Respiratory 25 H 25 H 25 H Rate Blood Pressure 120/69 120/69 118/68 O2 Sat by Pulse 99 98 98 Oximetry 02/15/21 02/15/21 12:00 12:20 Temperature 99.0 F Pulse Rate 59 L Pulse Rate [ From Monitor] Pulse Rate [ Left] Pulse Rate [ Right] Respiratory Rate Blood Pressure 110/74 O2 Sat by Pulse 99 Oximetry Constitutional: no acute distress (sedated), other (elderly lady without significant patient ventilator dyssynchrony) Eyes: non-icteric ENT: oropharynx moist, other (ETT 24 cm JANETH) Neck: supple, no lymphadenopathy, no JVD, other (large circumference) Effort: mildly labored Ascultation: Bilateral: diminished breath sounds, rales Percussion: Bilateral: not dull Cardiovascular: regular rate and rhythm Gastrointestinal: normoactive bowel sounds, soft, non-tender, non-distended Integumentary: normal Extremities: no edema, pulses normal, no ischemia or petechiae, edema Neurologic: non-focal exam (grossly), pupils equal and round, CN II-XII normal, motor strength normal and (sedated) Psychiatric: mood appropriate, affect normal CBC and BMP: 02/15/21 05:00 02/15/21 05:00 ABG, PT/INR, D-dimer: ABG ABG pH 7.383 (7.320-7.450) 02/15/21 04:07 POC ABG pCO2 41.7 mmHg (32.0-48.0) 02/15/21 04:07 POC ABG pO2 53.2 mmHg (83-108) L 02/15/21 04:07 POC ABG HCO3 24.3 02/15/21 04:07 ABG O2 Saturation 85.5 (0-100) 02/15/21 04:07 PT/INR, D-dimer PT 15.3 Sec. (12.2-14.9) H 02/13/21 16:27 INR 1.16 (0.87-1.13) H 02/13/21 16:27 D-Dimer 1007.53 ng/mlDDU (0-234) H 02/14/21 10:40 Abnormal lab findings: Abnormal Labs 02/13/21 02/13/21 02/13/21 12:46 13:28 13:28 WBC MCV MCH 25 L RDW 15.7 H Lymph % (Auto) 5.9 L Lymph # (Auto) 0.3 L Seg Neutrophils % 89.3 H PT 15.0 H INR APTT 23.8 L D-Dimer 478.95 H Heparin Anti-Xa Level ABG pH POC ABG pCO2 POC ABG pO2 ABG Hemoglobin ABG Oxyhemoglobin ABG Glucose Carboxyhemoglobin Potassium Chloride BUN Creatinine Glucose POC Glucose 190 H Lactic Acid Calcium Magnesium Ferritin AST Lactate Dehydrogenase Total Creatine Kinase Troponin T C-Reactive Protein NT-Pro-B Natriuret Pep Albumin Triglycerides TSH Arterial Blood Glucose Arterial Blood Ionized Calcium Urine WBC (Auto) Urine Creatinine Salicylates Acetaminophen Coronavirus (PCR) 02/13/21 02/13/21 02/13/21 13:28 13:28 13:28 WBC MCV MCH RDW Lymph % (Auto) Lymph # (Auto) Seg Neutrophils % PT INR APTT D-Dimer Heparin Anti-Xa Level ABG pH POC ABG pCO2 POC ABG pO2 ABG Hemoglobin ABG Oxyhemoglobin ABG Glucose Carboxyhemoglobin Potassium 5.1 H Chloride 95.7 L BUN 36 H Creatinine 2.0 H Glucose 172 H POC Glucose Lactic Acid 6.50 H* Calcium 7.5 L Magnesium Ferritin AST 81 H Lactate Dehydrogenase Total Creatine Kinase 1572 H Troponin T C-Reactive Protein NT-Pro-B Natriuret Pep Albumin 3.4 L Triglycerides TSH 8.530 H Arterial Blood Glucose Arterial Blood Ionized Calcium Urine WBC (Auto) Urine Creatinine Salicylates Acetaminophen Coronavirus (PCR) 02/13/21 02/13/21 02/13/21 13:28 13:28 13:28 WBC MCV MCH RDW Lymph % (Auto) Lymph # (Auto) Seg Neutrophils % PT INR APTT D-Dimer Heparin Anti-Xa Level ABG pH POC ABG pCO2 POC ABG pO2 ABG Hemoglobin ABG Oxyhemoglobin ABG Glucose Carboxyhemoglobin Potassium Chloride BUN Creatinine Glucose POC Glucose Lactic Acid Calcium Magnesium 2.60 H Ferritin AST Lactate Dehydrogenase Total Creatine Kinase Troponin T C-Reactive Protein NT-Pro-B Natriuret Pep Albumin Triglycerides TSH Arterial Blood Glucose Arterial Blood Ionized Calcium Urine WBC (Auto) Urine Creatinine Salicylates < 0.3 L Acetaminophen 5.0 L Coronavirus (PCR) 02/13/21 02/13/21 02/13/21 13:36 13:36 13:36 WBC MCV MCH RDW Lymph % (Auto) Lymph # (Auto) Seg Neutrophils % PT INR APTT D-Dimer Heparin Anti-Xa Level ABG pH POC ABG pCO2 POC ABG pO2 ABG Hemoglobin ABG Oxyhemoglobin ABG Glucose Carboxyhemoglobin Potassium Chloride BUN Creatinine Glucose 176 H POC Glucose Lactic Acid Calcium Magnesium Ferritin 1667.0 H AST Lactate Dehydrogenase 713 H Total Creatine Kinase Troponin T C-Reactive Protein 30.70 H NT-Pro-B Natriuret Pep 3473 H Albumin Triglycerides TSH Arterial Blood Glucose Arterial Blood Ionized Calcium Urine WBC (Auto) Urine Creatinine Salicylates Acetaminophen Coronavirus (PCR) 02/13/21 02/13/21 02/13/21 14:18 16:27 16:27 WBC MCV MCH RDW Lymph % (Auto) Lymph # (Auto) Seg Neutrophils % PT INR APTT D-Dimer Heparin Anti-Xa Level ABG pH 7.528 H POC ABG pCO2 POC ABG pO2 49.8 L ABG Hemoglobin 11.8 L ABG Oxyhemoglobin 85.8 L ABG Glucose 180 H Carboxyhemoglobin Potassium Chloride BUN Creatinine Glucose POC Glucose Lactic Acid 5.30 H* Calcium Magnesium Ferritin AST Lactate Dehydrogenase Total Creatine Kinase Troponin T 0.034 H D C-Reactive Protein NT-Pro-B Natriuret Pep Albumin Triglycerides 181 H TSH Arterial Blood Glucose 180 H Arterial Blood Ionized Calcium 3.7 L Urine WBC (Auto) Urine Creatinine Salicylates Acetaminophen Coronavirus (PCR) 02/13/21 02/13/21 02/13/21 16:27 18:39 18:39 WBC MCV MCH RDW Lymph % (Auto) Lymph # (Auto) Seg Neutrophils % PT 15.3 H INR 1.16 H APTT D-Dimer Heparin Anti-Xa Level ABG pH POC ABG pCO2 POC ABG pO2 ABG Hemoglobin ABG Oxyhemoglobin ABG Glucose Carboxyhemoglobin Potassium Chloride BUN Creatinine Glucose POC Glucose Lactic Acid 3.80 H* Calcium Magnesium Ferritin AST Lactate Dehydrogenase Total Creatine Kinase Troponin T 0.033 H C-Reactive Protein NT-Pro-B Natriuret Pep Albumin Triglycerides TSH Arterial Blood Glucose Arterial Blood Ionized Calcium Urine WBC (Auto) Urine Creatinine Salicylates Acetaminophen Coronavirus (PCR) 02/13/21 02/13/21 02/14/21 21:00 21:27 03:54 WBC MCV MCH RDW Lymph % (Auto) Lymph # (Auto) Seg Neutrophils % PT INR APTT D-Dimer Heparin Anti-Xa Level 0.96 H ABG pH POC ABG pCO2 POC ABG pO2 44.5 L ABG Hemoglobin ABG Oxyhemoglobin 78.3 L ABG Glucose 181 H Carboxyhemoglobin Potassium Chloride BUN Creatinine Glucose POC Glucose Lactic Acid Calcium Magnesium Ferritin AST Lactate Dehydrogenase Total Creatine Kinase Troponin T C-Reactive Protein NT-Pro-B Natriuret Pep Albumin Triglycerides TSH Arterial Blood Glucose 181 H Arterial Blood Ionized Calcium 4.2 L Urine WBC (Auto) 31.0 H Urine Creatinine Salicylates Acetaminophen Coronavirus (PCR) 02/14/21 02/14/21 02/14/21 03:54 10:40 10:40 WBC MCV MCH RDW Lymph % (Auto) Lymph # (Auto) Seg Neutrophils % PT INR APTT D-Dimer 1007.53 H Heparin Anti-Xa Level ABG pH POC ABG pCO2 POC ABG pO2 ABG Hemoglobin ABG Oxyhemoglobin ABG Glucose Carboxyhemoglobin Potassium Chloride BUN 41 H Creatinine 2.4 H Glucose 210 H POC Glucose Lactic Acid Calcium 7.7 L Magnesium Ferritin 1148.0 H AST Lactate Dehydrogenase Total Creatine Kinase Troponin T C-Reactive Protein NT-Pro-B Natriuret Pep Albumin Triglycerides TSH Arterial Blood Glucose Arterial Blood Ionized Calcium Urine WBC (Auto) Urine Creatinine Salicylates Acetaminophen Coronavirus (PCR) 02/14/21 02/14/21 02/14/21 10:40 11:33 17:51 WBC MCV MCH RDW Lymph % (Auto) Lymph # (Auto) Seg Neutrophils % PT INR APTT D-Dimer Heparin Anti-Xa Level ABG pH 7.285 L POC ABG pCO2 51.7 H POC ABG pO2 36.7 L ABG Hemoglobin ABG Oxyhemoglobin 57.9 L ABG Glucose 310 H Carboxyhemoglobin Potassium Chloride BUN Creatinine Glucose POC Glucose 265 H Lactic Acid Calcium Magnesium Ferritin AST Lactate Dehydrogenase 1381 H Total Creatine Kinase Troponin T C-Reactive Protein 36.70 H NT-Pro-B Natriuret Pep Albumin Triglycerides TSH Arterial Blood Glucose 310 H Arterial Blood Ionized Calcium 3.9 L Urine WBC (Auto) Urine Creatinine Salicylates Acetaminophen Coronavirus (PCR) 02/14/21 02/14/21 02/14/21 18:00 18:15 18:33 WBC MCV MCH RDW Lymph % (Auto) Lymph # (Auto) Seg Neutrophils % PT INR APTT D-Dimer Heparin Anti-Xa Level 1.09 H ABG pH POC ABG pCO2 POC ABG pO2 41.4 L ABG Hemoglobin ABG Oxyhemoglobin 70.5 L ABG Glucose 308 H Carboxyhemoglobin Potassium Chloride BUN Creatinine Glucose POC Glucose 260 H Lactic Acid Calcium Magnesium Ferritin AST Lactate Dehydrogenase Total Creatine Kinase Troponin T C-Reactive Protein NT-Pro-B Natriuret Pep Albumin Triglycerides TSH Arterial Blood Glucose 308 H Arterial Blood Ionized Calcium 4.0 L Urine WBC (Auto) Urine Creatinine Salicylates Acetaminophen Coronavirus (PCR) 02/14/21 02/14/21 02/14/21 18:45 18:45 Unknown WBC MCV MCH RDW Lymph % (Auto) Lymph # (Auto) Seg Neutrophils % PT INR APTT D-Dimer Heparin Anti-Xa Level ABG pH POC ABG pCO2 POC ABG pO2 ABG Hemoglobin ABG Oxyhemoglobin ABG Glucose Carboxyhemoglobin Potassium Chloride BUN Creatinine Glucose POC Glucose Lactic Acid 2.70 H* Calcium Magnesium Ferritin AST Lactate Dehydrogenase Total Creatine Kinase Troponin T C-Reactive Protein NT-Pro-B Natriuret Pep Albumin Triglycerides TSH Arterial Blood Glucose Arterial Blood Ionized Calcium Urine WBC (Auto) Urine Creatinine 80.0 H Salicylates Acetaminophen Coronavirus (PCR) Positive A 02/15/21 02/15/21 02/15/21 00:25 04:07 05:00 WBC 16.0 H MCV 77 L MCH 25 L RDW 16.1 H Lymph % (Auto) Lymph # (Auto) Seg Neutrophils % PT INR APTT D-Dimer Heparin Anti-Xa Level ABG pH POC ABG pCO2 POC ABG pO2 53.2 L ABG Hemoglobin ABG Oxyhemoglobin 85.1 L ABG Glucose 257 H Carboxyhemoglobin 0.4 L Potassium Chloride BUN Creatinine Glucose POC Glucose 256 H Lactic Acid Calcium Magnesium Ferritin AST Lactate Dehydrogenase Total Creatine Kinase Troponin T C-Reactive Protein NT-Pro-B Natriuret Pep Albumin Triglycerides TSH Arterial Blood Glucose 257 H Arterial Blood Ionized Calcium 3.8 L Urine WBC (Auto) Urine Creatinine Salicylates Acetaminophen Coronavirus (PCR) 02/15/21 02/15/21 02/15/21 05:00 05:00 05:43 WBC MCV MCH RDW Lymph % (Auto) Lymph # (Auto) Seg Neutrophils % PT INR APTT D-Dimer Heparin Anti-Xa Level 0.92 H ABG pH POC ABG pCO2 POC ABG pO2 ABG Hemoglobin ABG Oxyhemoglobin ABG Glucose Carboxyhemoglobin Potassium Chloride BUN 50 H Creatinine 3.2 H Glucose 247 H POC Glucose 253 H Lactic Acid Calcium 7.0 L Magnesium Ferritin AST Lactate Dehydrogenase Total Creatine Kinase Troponin T C-Reactive Protein NT-Pro-B Natriuret Pep Albumin Triglycerides TSH Arterial Blood Glucose Arterial Blood Ionized Calcium Urine WBC (Auto) Urine Creatinine Salicylates Acetaminophen Coronavirus (PCR) 02/15/21 12:11 WBC MCV MCH RDW Lymph % (Auto) Lymph # (Auto) Seg Neutrophils % PT INR APTT D-Dimer Heparin Anti-Xa Level ABG pH POC ABG pCO2 POC ABG pO2 ABG Hemoglobin ABG Oxyhemoglobin ABG Glucose Carboxyhemoglobin Potassium Chloride BUN Creatinine Glucose POC Glucose 145 H Lactic Acid Calcium Magnesium Ferritin AST Lactate Dehydrogenase Total Creatine Kinase Troponin T C-Reactive Protein NT-Pro-B Natriuret Pep Albumin Triglycerides TSH Arterial Blood Glucose Arterial Blood Ionized Calcium Urine WBC (Auto) Urine Creatinine Salicylates Acetaminophen Coronavirus (PCR) Chest x-ray: image reviewed (persistent bilateral; infiltrates) Allied health notes reviewed: nursing
--- NOTE | 2021-02-15 14:07 | Progress Note ---
Assessment and Plan Cultures: SARS CoV2 PCR: positive 02/13/2021 blood culture: no growth 02/13/2021 tracheal aspirate culture: Usual respiratory shivani Urine culture: no growth A/P: 70-year-old female with obesity hypoventilation syndrome, hypertension, hypothyroidism admitted to the hospital after she was found unresponsive: #Septic shock: Secondary to below. Resolved. #Bilateral pneumonia secondary to COVID-19. Severe disease. #Acute hypoxic respiratory failure: Secondary to COVID-19. On the vent. #SONIA: Renally adjust antibiotics. #Mild transaminitis: Likely from sepsis. #Possible UTI: culture with no growth. Recs: Continue steroids Continue empiric antibiotics: Ceftriaxone, azithromycin x 5 days Given renal failure, not a candidate for Remdesivir Procalcitonin is elevated, not an Actemra candidate poor prognosis Andra Sol MD, FACP [facility] O: [phone] F: [phone] Subjective Date of service: 02/15/21 Principal diagnosis: AHRF; ARDS; Pneumonia; PUI COVID-19; OHS; SONIA; Hyperkalemia; AMS Interval history: No fever. Remains on the vent, 85% FiO2, 20. Off pressors. Creatinine worse at 3.2 Objective - Exam Narrative Exam: Physical Exam (reviewed in chart to minimize risk of transmission) Constitutional: deferred Head, Ears, Nose: deferred Eyes: deferred Neck: deferred Oral: deferred Cardiovascular: deferred Respiratory: deferred GI: deferred Musculoskeletal: deferred Skin: deferred Hem/Lymphatic: deferred Psych: deferred Neurological: deferred - Constitutional Vitals: Vital Signs Temp Pulse Resp BP Pulse Ox 99.0 F 59 L 25 H 110/74 99 02/15/21 12:00 02/15/21 12:20 02/15/21 11:20 02/15/21 12:20 02/15/21 12:20 Temperature -Last 24 Hours Temperature 99.0 F Temperature 97.6 F Temperature 97.6 F Temperature 97.4 F Temperature 96.4 F Temperature 97.5 F Temperature 97.1 F - Labs CBC & Chem 7: 02/15/21 05:00 02/15/21 05:00 Labs: Abnormal lab results 02/13/21 02/14/21 02/14/21 Range/Units 12:46 17:51 18:00 WBC (4.5-11.0) K/mm3 MCV (79-97) fl MCH (28-32) pg RDW (13.2-15.2) % Heparin Anti-Xa Level (0.3-0.7) U.I./ml ABG pH 7.285 L (7.320-7.450) POC ABG pCO2 51.7 H (32.0-48.0) mmHg POC ABG pO2 36.7 L (83-108) mmHg ABG Oxyhemoglobin 57.9 L (94-98) ABG Glucose 310 H (65-95) mg/dL Carboxyhemoglobin (0.5-1.5) BUN (7-17) mg/dL Creatinine (0.6-1.2) mg/dL Glucose (65-100) mg/dL POC Glucose 190 H 260 H (70-105) mg/dL Lactic Acid (0.7-2.0) mmol/L Calcium (8.4-10.2) mg/dL Arterial Blood Glucose 310 H (65-95) mg/dL Arterial Blood Ionized Calcium 3.9 L (4.6-5.3) mg/dL Urine Creatinine (0.1-20.0) mg/dL Coronavirus (PCR) (Negative) 02/14/21 02/14/21 02/14/21 Range/Units 18:15 18:33 18:45 WBC (4.5-11.0) K/mm3 MCV (79-97) fl MCH (28-32) pg RDW (13.2-15.2) % Heparin Anti-Xa Level 1.09 H (0.3-0.7) U.I./ml ABG pH (7.320-7.450) POC ABG pCO2 (32.0-48.0) mmHg POC ABG pO2 41.4 L (83-108) mmHg ABG Oxyhemoglobin 70.5 L (94-98) ABG Glucose 308 H (65-95) mg/dL Carboxyhemoglobin (0.5-1.5) BUN (7-17) mg/dL Creatinine (0.6-1.2) mg/dL Glucose (65-100) mg/dL POC Glucose (70-105) mg/dL Lactic Acid (0.7-2.0) mmol/L Calcium (8.4-10.2) mg/dL Arterial Blood Glucose 308 H (65-95) mg/dL Arterial Blood Ionized Calcium 4.0 L (4.6-5.3) mg/dL Urine Creatinine 80.0 H (0.1-20.0) mg/dL Coronavirus (PCR) (Negative) 02/14/21 02/14/21 02/15/21 Range/Units 18:45 Unknown 00:25 WBC (4.5-11.0) K/mm3 MCV (79-97) fl MCH (28-32) pg RDW (13.2-15.2) % Heparin Anti-Xa Level (0.3-0.7) U.I./ml ABG pH (7.320-7.450) POC ABG pCO2 (32.0-48.0) mmHg POC ABG pO2 (83-108) mmHg ABG Oxyhemoglobin (94-98) ABG Glucose (65-95) mg/dL Carboxyhemoglobin (0.5-1.5) BUN (7-17) mg/dL Creatinine (0.6-1.2) mg/dL Glucose (65-100) mg/dL POC Glucose 256 H (70-105) mg/dL Lactic Acid 2.70 H* (0.7-2.0) mmol/L Calcium (8.4-10.2) mg/dL Arterial Blood Glucose (65-95) mg/dL Arterial Blood Ionized Calcium (4.6-5.3) mg/dL Urine Creatinine (0.1-20.0) mg/dL Coronavirus (PCR) Positive A (Negative) 02/15/21 02/15/21 02/15/21 Range/Units 04:07 05:00 05:00 WBC 16.0 H (4.5-11.0) K/mm3 MCV 77 L (79-97) fl MCH 25 L (28-32) pg RDW 16.1 H (13.2-15.2) % Heparin Anti-Xa Level (0.3-0.7) U.I./ml ABG pH (7.320-7.450) POC ABG pCO2 (32.0-48.0) mmHg POC ABG pO2 53.2 L (83-108) mmHg ABG Oxyhemoglobin 85.1 L (94-98) ABG Glucose 257 H (65-95) mg/dL Carboxyhemoglobin 0.4 L (0.5-1.5) BUN 50 H (7-17) mg/dL Creatinine 3.2 H (0.6-1.2) mg/dL Glucose 247 H (65-100) mg/dL POC Glucose (70-105) mg/dL Lactic Acid (0.7-2.0) mmol/L Calcium 7.0 L (8.4-10.2) mg/dL Arterial Blood Glucose 257 H (65-95) mg/dL Arterial Blood Ionized Calcium 3.8 L (4.6-5.3) mg/dL Urine Creatinine (0.1-20.0) mg/dL Coronavirus (PCR) (Negative) 02/15/21 02/15/21 02/15/21 Range/Units 05:00 05:43 12:11 WBC (4.5-11.0) K/mm3 MCV (79-97) fl MCH (28-32) pg RDW (13.2-15.2) % Heparin Anti-Xa Level 0.92 H (0.3-0.7) U.I./ml ABG pH (7.320-7.450) POC ABG pCO2 (32.0-48.0) mmHg POC ABG pO2 (83-108) mmHg ABG Oxyhemoglobin (94-98) ABG Glucose (65-95) mg/dL Carboxyhemoglobin (0.5-1.5) BUN (7-17) mg/dL Creatinine (0.6-1.2) mg/dL Glucose (65-100) mg/dL POC Glucose 253 H 145 H (70-105) mg/dL Lactic Acid (0.7-2.0) mmol/L Calcium (8.4-10.2) mg/dL Arterial Blood Glucose (65-95) mg/dL Arterial Blood Ionized Calcium (4.6-5.3) mg/dL Urine Creatinine (0.1-20.0) mg/dL Coronavirus (PCR) (Negative)
--- NOTE | 2021-02-15 14:26 | Progress Note ---
<ELKIN GERMAIN A - Last Filed: 02/15/21 14:46> Assessment and Plan Assessment and plan: 70 YO Female with Obesity Hypoventilation Syndrome, HTN, Hypothyroidism presents to ED for evaluation. Patient is intubated and on ventilatory support at the time my evaluation is unable to write history. Patient history provided by EMS staff, ED staff, as well as the patient family was made available by telephone for interview. As per daughter the patient was in her usual state of health around bedtime which was 2100 hrs. The patient was found down and unresponsive this morning. EMS was notified and upon arrival the patient was found to be in respiratory distress with a pulse oximetry of 50%. The patient was transported to [facility] for further care and evaluation of the aforementioned symptoms. The patient was seen and evaluated in the emergency department. All lab and imaging studies reviewed. The patient was found to have a pulse oximetry in the 60s which is consistent with acute hypoxemic respiratory failure. The patient was deemed unable to protect her airway and was intubated and placed on ventilatory support. The patient was found to have a blood pressure of 69/33. The patient was also found to have pneumonia on chest x-ray which was complicated by septic shock, metabolic acidosis, toxic metabolic encephalopathy, acute kidney injury. Patient admitted to ICU due to multiple organ system failure. Critical care care team consulted in ED. Patient initiated on sepsis protocol as well as coronavirus protocol. Patient found to have poor prognosis. Advanced care planning conducted in ED. No prior admission for review. No medication listed at time of admission for reconciliation. NEURO: metabolic encephalopathy; sedated keep sedated to raas goal neg 2-3 weaning propofol due to zina versed/fentanyl SAT daily as allowed with oxygenation NOK daugther CV- hypotension due to sepsis/sedation; bradycardia in part due to hypoxia; hx HTN MAP > 65 SB-SR has had zina requiring dopamine NE PRN no echo on record Resp- ARDS; acute hypoxic resp failure due to covid19 pna; hx hypoventilation syndrome intubated 8- mechanical vent- see RT notes for changes ACPRV [id number] follow ABG and chest xray b infiltrates on AM xray AM ABG 7.38-42-53-24 GI: risk protein cynthia malnutrition TF nutrition following pepcid bowel reg - SONIA/ ATN/ metabolic acidosis nephrology following net pos 957 over the last 24 hours trend Cr 2 on admit Trend electrolytes strict I/O daily weight Heme- coagulopathic with covid; on AC VTE heparin gtt no bleeding on exam trend CBC ID- covid19 pna with resulting sepsis covid pos 8- ID following azithro and ceftriaxone no remdes given SONIA no acterma given inc procal methylpred per ID afebrile WBC 16 trend WBC and temp curve trend inflammatory markers follow culture data Endo -hx DM with hyperglycemia; morbid obesity; hx hypothyrodism glargine 10U HS SSI avoid hypoglycemia TSH high on 02/13; T3 in AM - consider synthroid 02-13 Admitted through ER 02-14 proned; when supined this AM became hypoxic- took some time to recover The high probability of a clinically significant, sudden or life threatening deterioration of the [60] system(s) required my full and direct attention, intervention and personal management. The aggregate critical care time was [] minutes. This time is in addition to time spent performing reported procedures but includes the following: [x] Data Review and interpretation [x] Patient assessment and monitoring of vital signs [x] Documentation [x] Medication orders and management Disposition Plan: icu Total Time Spent with Patient (Minutes): 60 History Interval history: desaturated when supined this AM- now recovered Hospitalist Physical - Constitutional Vitals: Temp Pulse Resp BP Pulse Ox 99.0 F 59 L 25 H 110/74 99 02/15/21 12:00 02/15/21 12:20 02/15/21 11:20 02/15/21 12:20 02/15/21 12:20 General appearance: Present: mild distress, well-nourished - EENT Eyes: Present: PERRL ENT: clear oral mucosa - Neck Neck: Present: supple - Respiratory Respiratory effort: normal, labored - Cardiovascular Rhythm: regular Heart Sounds: Present: S1 & S2 Peripheral Pulses: within normal limits - Abdominal General gastrointestinal: soft - Integumentary Integumentary: Present: clear, warm, dry - Psychiatric Psychiatric: other - Neurologic Neurologic: other - Allied Health Allied health notes reviewed: nursing, RT, social work, case management HEART Score - HEART Score Troponin: Troponin T 0.033 ng/mL (0.00-0.029) H 02/13/21 18:39 Results - Labs CBC & Chem 7: 02/15/21 05:00 02/15/21 05:00 Labs: Laboratory Last Values WBC 16.0 K/mm3 (4.5-11.0) H 02/15/21 05:00 RBC 4.76 M/mm3 (3.65-5.03) 02/15/21 05:00 Hgb 11.7 gm/dl (10.1-14.3) 02/15/21 05:00 Hct 36.6 % (30.3-42.9) 02/15/21 05:00 MCV 77 fl (79-97) L 02/15/21 05:00 MCH 25 pg (28-32) L 02/15/21 05:00 MCHC 32 % (30-34) 02/15/21 05:00 RDW 16.1 % (13.2-15.2) H 02/15/21 05:00 Plt Count 218 K/mm3 (140-440) 02/15/21 05:00 Lymph % (Auto) 5.9 % (13.4-35.0) L 02/13/21 13:28 [place] % (Auto) 4.5 % (0.0-7.3) 02/13/21 13:28 Eos % (Auto) 0.0 % (0.0-4.3) 02/13/21 13:28 Baso % (Auto) 0.3 % (0.0-1.8) 02/13/21 13:28 Lymph # (Auto) 0.3 K/mm3 (1.2-5.4) L 02/13/21 13:28 [place] # (Auto) 0.3 K/mm3 (0.0-0.8) 02/13/21 13:28 Eos # (Auto) 0.0 K/mm3 (0.0-0.4) 02/13/21 13:28 Baso # (Auto) 0.0 K/mm3 (0.0-0.1) 02/13/21 13:28 Seg Neutrophils % 89.3 % (40.0-70.0) H 02/13/21 13:28 Seg Neutrophils # 5.2 K/mm3 (1.8-7.7) 02/13/21 13:28 PT 15.3 Sec. (12.2-14.9) H 02/13/21 16:27 INR 1.16 (0.87-1.13) H 02/13/21 16:27 APTT 27.5 Sec. (24.2-36.6) 02/13/21 16:27 D-Dimer 1007.53 ng/mlDDU (0-234) H 02/14/21 10:40 Heparin Anti-Xa Level 0.92 U.I./ml (0.3-0.7) H 02/15/21 05:00 ABG pH 7.383 (7.320-7.450) 02/15/21 04:07 POC ABG pCO2 41.7 mmHg (32.0-48.0) 02/15/21 04:07 POC ABG pO2 53.2 mmHg (83-108) L 02/15/21 04:07 POC ABG HCO3 24.3 02/15/21 04:07 ABG O2 Saturation 85.5 (0-100) 02/15/21 04:07 POC ABG Base Excess -0.8 02/15/21 04:07 ABG Hemoglobin 13.0 (12.0-17.5) 02/15/21 04:07 ABG Oxyhemoglobin 85.1 (94-98) L 02/15/21 04:07 ABG Methemoglobin 0.1 (0.0-1.5) 02/15/21 04:07 ABG Sodium 138.3 mmol/L (136.0-145.0) 02/15/21 04:07 ABG Potassium 4.2 mmol/L (3.40-4.50) 02/15/21 04:07 ABG Chloride 104.0 mmol/L (98-107) 02/15/21 04:07 ABG Glucose 257 mg/dL (65-95) H 02/15/21 04:07 Carboxyhemoglobin 0.4 (0.5-1.5) L 02/15/21 04:07 FiO2 % 100.0 02/15/21 04:07 Sodium 138 mmol/L (137-145) 02/15/21 05:00 Potassium 4.3 mmol/L (3.6-5.0) 02/15/21 05:00 Chloride 99.8 mmol/L (98-107) 02/15/21 05:00 Carbon Dioxide 23 mmol/L (22-30) 02/15/21 05:00 Anion Gap 20 mmol/L 02/15/21 05:00 BUN 50 mg/dL (7-17) H 02/15/21 05:00 Creatinine 3.2 mg/dL (0.6-1.2) H 02/15/21 05:00 Estimated GFR 17 ml/min 02/15/21 05:00 BUN/Creatinine Ratio 16 % 02/15/21 05:00 Glucose 247 mg/dL (65-100) H 02/15/21 05:00 POC Glucose 145 mg/dL (70-105) H 02/15/21 12:11 Lactic Acid 1.90 mmol/L (0.7-2.0) 02/14/21 22:33 Calcium 7.0 mg/dL (8.4-10.2) L 02/15/21 05:00 Magnesium 2.60 mg/dL (1.7-2.3) H 02/13/21 13:28 Ferritin 1148.0 ng/mL (10.0-200.0) H 02/14/21 10:40 Total Bilirubin 0.40 mg/dL (0.1-1.2) 02/13/21 13:28 Direct Bilirubin < 0.2 mg/dL (0-0.2) 02/13/21 13:28 Indirect Bilirubin 0.2 mg/dL 02/13/21 13:28 AST 81 units/L (5-40) H 02/13/21 13:28 ALT 25 units/L (7-56) 02/13/21 13:28 Alkaline Phosphatase 42 units/L (35-129) 02/13/21 13:28 Ammonia 48.0 umol/L (25-60) 02/13/21 13:28 Lactate Dehydrogenase 1381 units/L (91-180) H 02/14/21 10:40 Total Creatine Kinase 1572 units/L (30-135) H 02/13/21 13:28 Troponin T 0.033 ng/mL (0.00-0.029) H 02/13/21 18:39 C-Reactive Protein 36.70 mg/dL (0.00-1.30) H 02/14/21 10:40 NT-Pro-B Natriuret Pep 3473 pg/mL (0-900) H 02/13/21 13:36 Total Protein 8.1 g/dL (6.3-8.2) 02/13/21 13:28 Albumin 3.4 g/dL (3.9-5) L 02/13/21 13:28 Albumin/Globulin Ratio 0.7 % 02/13/21 13:28 Triglycerides 181 mg/dL (2-149) H 02/13/21 16:27 Cholesterol 130 mg/dL (50-199) 02/13/21 16:27 LDL Cholesterol Direct 68 mg/dL (50-130) 02/13/21 16:27 HDL Cholesterol 40 mg/dL (40-59) 02/13/21 16:27 Cholesterol/HDL Ratio 3.25 % 02/13/21 16:27 Lipase 35 units/L (13-60) 02/13/21 13:28 Procalcitonin 58.83 ng/mL (<0.15) 02/14/21 10:40 TSH 8.530 mlU/mL (0.270-4.200) H 02/13/21 13:28 Arterial Blood Glucose 257 mg/dL (65-95) H 02/15/21 04:07 Arterial Blood Ionized Calcium 3.8 mg/dL (4.6-5.3) L 02/15/21 04:07 Urine Color Laura (Yellow) 02/13/21 21: Urine Turbidity Turbid (Clear) 02/13/21 21: Urine pH 5.0 (5.0-7.0) 02/13/21 21: Ur Specific Duck 1.025 (1.003-1.030) 02/13/21 21:27 Urine Protein >500 mg/dL (Negative) 02/13/21 21:27 Urine Glucose (UA) Neg mg/dL (Negative) 02/13/21 21:27 Urine Ketones Neg mg/dL (Negative) 02/13/21 21:27 Urine Blood Lg (Negative) 02/13/21 21: Urine Nitrite Neg (Negative) 02/13/21 21:27 Urine Bilirubin Neg (Negative) 02/13/21 21:27 Urine Urobilinogen < 2.0 mg/dL (<2.0) 02/13/21 21:27 Ur Leukocyte Esterase Neg (Negative) 02/13/21 21:27 Urine WBC (Auto) 31.0 /HPF (0.0-6.0) H 02/13/21 21:27 Urine RBC (Auto) 8.0 /HPF (0.0-6.0) 02/13/21 21:27 U Epithel Cells (Auto) 4.0 /HPF (0-13.0) 02/13/21 21:27 Urine Bacteria (Auto) 2+ /HPF (Negative) 02/13/21 21:27 Urine WBC Clumps 3+ /HPF 02/13/21 21:27 Hyaline Casts 5 /LPF 02/13/21 21:27 Urine Mucus 2+ /HPF 02/13/21 21:27 Urine Yeast (Budding) 3+ /HPF 02/13/21 21:27 Urine Creatinine 80.0 mg/dL (0.1-20.0) H 02/14/21 18:45 Urine Sodium 33 mmol/L 02/14/21 18:45 Salicylates < 0.3 mg/dL (2.8-20.0) L 02/13/21 13:28 Urine Opiates Screen Negative 02/13/21 21:27 Urine Methadone Screen Negative 02/13/21 21:27 Acetaminophen 5.0 ug/mL (10.0-30.0) L 02/13/21 13:28 Ur Barbiturates Screen Negative 02/13/21 21:27 Ur Phencyclidine Scrn Negative 02/13/21 21:27 Ur Amphetamines Screen Negative 02/13/21 21:27 U Benzodiazepines Scrn Negative 02/13/21 21:27 Urine Cocaine Screen Negative 02/13/21 21:27 U Marijuana (THC) Screen Negative 02/13/21 21:27 Drugs of Abuse Note Disclamer 02/13/21 21:27 Plasma/Serum Alcohol < 0.01 % (0-0.07) 02/13/21 13:28 Coronavirus (PCR) Positive (Negative) A 02/14/21 Unknown Blood Type B POSITIVE 02/13/21 13:31 Antibody Screen Negative 02/13/21 13:31 Microbiology: Microbiology 02/13/21 17:23 Tracheal Aspirate Sputum Culture - Final 02/13/21 Unknown Urine,Catheterized - Indwelling Catheter Urine Culture - Final NO GROWTH AFTER 48 HOURS 02/13/21 13:48 Peripheral/Venous Blood Culture - Preliminary NO GROWTH AFTER 24 HOURS 02/13/21 13:28 Peripheral/Venous Blood Culture - Preliminary NO GROWTH AFTER 24 HOURS Cho/IV: Voiding Method Indwelling Catheter Active Medications - Current Medications Current Medications: Generic Name Dose Route Start Last Admin Trade Name Freq PRN Reason Stop Dose Admin Acetaminophen 650 mg 02/13/21 15:22 Acetaminophen 325 Mg Tab PO Q6H PRN Pain, Mild (1-3) Acetaminophen 650 mg 02/13/21 15:22 02/13/21 20:30 Acetaminophen 650 Mg Rect Supp PA 650 mg Q6H PRN Administration Pain MILD(1-3)/Fever >100.5/ZACARIAS Albuterol 2.5 mg 02/13/21 15:22 Albuterol 2.5 Mg/3 Ml Nebu IH Q3H PRN Shortness Of Breath Lipase/Protease/Amylase 1 each 02/14/21 10:43 Lipase 10,500/Protease 25,000/Amylase 43,750 (Units) Dr Iqbal FEEDTUBE PRN PRN For Clogged Feeding Tube Ascorbic Acid 500 mg 02/13/21 22:00 02/15/21 11:37 Ascorbic Acid 500 Mg Tab PO 500 mg BID RUDY Administration Cholecalciferol 1,000 unit 02/13/21 16:00 02/15/21 11:37 Cholecalciferol (Vit D3) 1000 Unit (25 Mcg) Tab PO 1,000 unit QDAY RUDY Administration Dextrose 50 ml 02/14/21 11:15 Dextrose 50% In Water (25gm) 50 Ml Syringe IV Q30MIN PRN Hypoglycemia Protocol Famotidine 20 mg 02/14/21 10:00 02/15/21 11:37 Famotidine 20 Mg/2 Ml Inj IV 20 mg DAILY RUDY Administration Fentanyl 50 mcg 02/13/21 16:05 Fentanyl 100 Mcg/2 Ml Inj IV Q10MIN PRN ANALGESIA Heparin Sodium (Porcine) 4,400 unit 02/14/21 13:18 Heparin 10,000 Units/10 Ml Vial 40 unit/kg (4400 unit) IV Q6H PRN Anti-Xa Assay < 0.1 units/ml Hydrophilic Ointment 1 applic 02/13/21 22:52 Lip Therapy Vaseline TP Q2HR PRN Dry Lips Ceftriaxone Sodium 2 gm in 100 mls @ 200 mls/hr 02/13/21 16:00 02/14/21 16:23 Rocephin/Ns 2 Gm/100 Ml IV 200 mls/hr Q24H RUDY Administration Protocol Azithromycin 500 mg in 250 mls @ 250 mls/hr 02/14/21 15:00 02/14/21 15:42 Zithromax/Ns IV 250 mls/hr Q24H RUDY Administration Protocol Heparin Sodium/Sodium Chloride 25,000 unit in 500 mls @ 30 mls/hr 02/13/21 17:00 02/15/21 11:08 Heparin/ 0.45% Nacl-25,000 Unit/500 Ml IV 1,250 units/hr TITR RUDY 25 mls/hr Titration Protocol 1,500 UNITS/HR Fentanyl Citrate 2,000 mcg in 100 mls @ 5.55 mls/hr 02/13/21 17:00 02/15/21 12:56 Fentanyl Drip Premix IV 2 mcg/kg/hr TITR RUDY 11.1 mls/hr Administration Protocol 1 MCG/KG/HR Norepinephrine 4 mg in 250 mls @ 75 mls/hr 02/13/21 18:00 02/14/21 01:55 Levophed Drip 4 Mg/Ns 250 Ml IV 0 mcg/min TITR RUDY 0 mls/hr Titration Protocol 20 MCG/MIN Propofol 1,000 mg in 100 mls @ 3.33 mls/hr 02/13/21 23:00 02/15/21 09:21 Diprivan 10 Mg/Ml IV 15 mcg/kg/min TITR RUDY 9.99 mls/hr Titration Protocol 5 MCG/KG/MIN Midazolam HCl 100 mg/ Sodium 100 mls @ 1 mls/hr 02/14/21 09:00 02/15/21 02:30 Chloride IV 0 mg/hr TITR RUDY 0 mls/hr Titration Protocol 1 MG/HR Dopamine HCl/Dextrose 800 mg in 250 mls @ 4.163 mls/hr 02/14/21 09:00 02/15/21 12:56 Intropin Drip 800 Mg/D5w 250 Ml IV 8 mcg/kg/min TITR RUDY 16.65 mls/hr Administration Protocol 2 MCG/KG/MIN Insulin Glargine 10 units 02/15/21 22:00 Insulin Glargine 100 Units/Ml SUB-Q QHS RUDY Insulin Human Regular 0 units 02/14/21 12:00 02/15/21 12:40 Insulin Regular, Human 100 Units/1 Ml SUB-Q Not Given Q6H [facility] Protocol Methylprednisolone Sodium Succinate 40 mg 02/15/21 01:00 02/15/21 11:37 Methylprednisolone Sod Succinate 125 Mg/2 Ml Inj IV 40 mg Q8H RUDY Administration Midazolam HCl 2 mg 02/14/21 08:24 Midazolam 2 Mg/2 Ml Inj IV Q10MIN PRN Sedation Multi-Ingred Cream/Lotion/Oil/Oint 1 applic 02/13/21 16:05 Mineral Oil/Petrolatum, White Ophth Oint 3.5 Gm OU Q4H PRN Dry Eye(s) Senna/Docusate Sodium 1 tab 02/13/21 22:00 02/15/21 11:37 Sennosides/Docusate Sodium 8.6/50 Mg Tab FEEDTUBE 1 tab BID RUDY Administration Simple Syrup 15 ml 02/14/21 10:43 Simple Syrup 15 Ml FEEDTUBE PRN PRN Hypoglycemia Simple Syrup 30 ml 02/14/21 10:43 Simple Syrup 15 Ml FEEDTUBE PRN PRN Hypoglycemia Sodium Bicarbonate 325 mg 02/14/21 10:43 Sodium Bicarbonate 325 Mg Tab FEEDTUBE PRN PRN For Clogged Feeding Tube Sodium Chloride 10 ml 02/13/21 22:00 02/15/21 11:38 Sodium Chloride 0.9% 10 Ml Flush Syringe IV 10 ml BID RUDY Administration Sodium Chloride 10 ml 02/13/21 15:22 Sodium Chloride 0.9% 10 Ml Flush Syringe IV PRN PRN LINE FLUSH Zinc Sulfate 220 mg 02/13/21 22:00 02/15/21 11:37 Zinc Sulfate 220 Mg Cap PO 220 mg BID RUDY Administration Nutrition/Malnutrition Assess - Dietary Evaluation Nutrition/Malnutrition Findings: Nutrition Notes Start: 02/14/21 10:34 Freq: Status: Active Protocol: Document 02/14/21 10:34 CARLITA (Rec: 02/14/21 10:42 CARLITA [id number]) Nutrition Notes Need for Assessment generated from: MD Order Initial or Follow up Assessment Current Diagnosis Acute Kidney Injury, Hypertension,Respiratory Failure Other Pertinent Diagnosis SIRS, pneu, COVID PUI Current Diet Renal Labs/Tests BUN 41 Cr 2.4 BG 210 Pertinent Medications Propofol at 19.98 ml/hr (527 kcal) Solu Medrol Height 5 ft 6 in Weight 111 kg [place] Body Weight (kg) 59.09 BMI 39.4 Weight Status Morbidly Obese Subjective/Other Information MD consult to eval intakes and TF. Pt on vent. Burn Absent Trauma Absent Current % PO Negligible Minimum of two criteria No physical signs of malnutrition #1 Nutrition Diagnosis Inadequate oral intake Etiology ARF As Evidenced by Signs and Symptoms pt on vent and unable to consume PO Is patient on ventilator? Yes Is Patient Ambulatory and/or Out of Bed No REE-([facility]-confined to bed) 1987.392 Kcal/Kg value to use for calculation 11 Approximate Energy Requirements Using 1221 kcal/Kg Calculation Used for Recommendations Kcal/kg Additional Notes Protein: (>2g/kg IBW) greater than 118g Fluid: 1 ml/kcal or per MD Nutrition Intervention Change Diet Order: Start TF Nutrition Support: Nepro 1.8 at 30 ml/hr Flush 150 ml q4h or per MD Kcal 1,296 Protein (gm) 58 Fluid (mL) 523 Goal #1 Meet at least 75% of kcal needs and meet protein needs as best as possible via TF Anticipated Discharge Needs: Unable to determine at this time Follow-Up By: 02/16/21 Additional Comments F/u: TF start, tolerance and propofol rate - Attestation Statement I have reviewed and agreed w/ Malnutrition eval & tx plan: Yes <CELINA MASTERSON - Last Filed: 02/15/21 18:44> Assessment and Plan Assessment and plan: I saw and evaluated the patient. Discussed with the nurse practitioner and agree with their findings and plan as documented in this note. Hospitalist Physical - Constitutional Vitals: Temp Pulse Resp BP Pulse Ox 98.1 F 59 L 25 H 107/80 96 02/15/21 15:00 02/15/21 16:10 02/15/21 11:20 02/15/21 16:10 02/15/21 16:10 HEART Score - HEART Score Troponin: Troponin T 0.033 ng/mL (0.00-0.029) H 02/13/21 18:39 Results - Labs CBC & Chem 7: 02/15/21 05:00 02/15/21 05:00 Labs: Laboratory Last Values WBC 16.0 K/mm3 (4.5-11.0) H 02/15/21 05:00 RBC 4.76 M/mm3 (3.65-5.03) 02/15/21 05:00 Hgb 11.7 gm/dl (10.1-14.3) 02/15/21 05:00 Hct 36.6 % (30.3-42.9) 02/15/21 05:00 MCV 77 fl (79-97) L 02/15/21 05:00 MCH 25 pg (28-32) L 02/15/21 05:00 MCHC 32 % (30-34) 02/15/21 05:00 RDW 16.1 % (13.2-15.2) H 02/15/21 05:00 Plt Count 218 K/mm3 (140-440) 02/15/21 05:00 Lymph % (Auto) 5.9 % (13.4-35.0) L 02/13/21 13:28 [place] % (Auto) 4.5 % (0.0-7.3) 02/13/21 13:28 Eos % (Auto) 0.0 % (0.0-4.3) 02/13/21 13:28 Baso % (Auto) 0.3 % (0.0-1.8) 02/13/21 13:28 Lymph # (Auto) 0.3 K/mm3 (1.2-5.4) L 02/13/21 13:28 [place] # (Auto) 0.3 K/mm3 (0.0-0.8) 02/13/21 13:28 Eos # (Auto) 0.0 K/mm3 (0.0-0.4) 02/13/21 13:28 Baso # (Auto) 0.0 K/mm3 (0.0-0.1) 02/13/21 13:28 Seg Neutrophils % 89.3 % (40.0-70.0) H 02/13/21 13:28 Seg Neutrophils # 5.2 K/mm3 (1.8-7.7) 02/13/21 13:28 PT 15.3 Sec. (12.2-14.9) H 02/13/21 16:27 INR 1.16 (0.87-1.13) H 02/13/21 16:27 APTT 27.5 Sec. (24.2-36.6) 02/13/21 16:27 D-Dimer 1007.53 ng/mlDDU (0-234) H 02/14/21 10:40 Heparin Anti-Xa Level 0.92 U.I./ml (0.3-0.7) H 02/15/21 05:00 ABG pH 7.383 (7.320-7.450) 02/15/21 04:07 POC ABG pCO2 41.7 mmHg (32.0-48.0) 02/15/21 04:07 POC ABG pO2 53.2 mmHg (83-108) L 02/15/21 04:07 POC ABG HCO3 24.3 02/15/21 04:07 ABG O2 Saturation 85.5 (0-100) 02/15/21 04:07 POC ABG Base Excess -0.8 02/15/21 04:07 ABG Hemoglobin 13.0 (12.0-17.5) 02/15/21 04:07 ABG Oxyhemoglobin 85.1 (94-98) L 02/15/21 04:07 ABG Methemoglobin 0.1 (0.0-1.5) 02/15/21 04:07 ABG Sodium 138.3 mmol/L (136.0-145.0) 02/15/21 04:07 ABG Potassium 4.2 mmol/L (3.40-4.50) 02/15/21 04:07 ABG Chloride 104.0 mmol/L (98-107) 02/15/21 04:07 ABG Glucose 257 mg/dL (65-95) H 02/15/21 04:07 Carboxyhemoglobin 0.4 (0.5-1.5) L 02/15/21 04:07 FiO2 % 100.0 02/15/21 04:07 Sodium 138 mmol/L (137-145) 02/15/21 05:00 Potassium 4.3 mmol/L (3.6-5.0) 02/15/21 05:00 Chloride 99.8 mmol/L (98-107) 02/15/21 05:00 Carbon Dioxide 23 mmol/L (22-30) 02/15/21 05:00 Anion Gap 20 mmol/L 02/15/21 05:00 BUN 50 mg/dL (7-17) H 02/15/21 05:00 Creatinine 3.2 mg/dL (0.6-1.2) H 02/15/21 05:00 Estimated GFR 17 ml/min 02/15/21 05:00 BUN/Creatinine Ratio 16 % 02/15/21 05:00 Glucose 247 mg/dL (65-100) H 02/15/21 05:00 POC Glucose 200 mg/dL (70-105) H 02/15/21 15:36 Lactic Acid 1.90 mmol/L (0.7-2.0) 02/14/21 22:33 Calcium 7.0 mg/dL (8.4-10.2) L 02/15/21 05:00 Magnesium 2.60 mg/dL (1.7-2.3) H 02/13/21 13:28 Ferritin 1148.0 ng/mL (10.0-200.0) H 02/14/21 10:40 Total Bilirubin 0.40 mg/dL (0.1-1.2) 02/13/21 13:28 Direct Bilirubin < 0.2 mg/dL (0-0.2) 02/13/21 13:28 Indirect Bilirubin 0.2 mg/dL 02/13/21 13:28 AST 81 units/L (5-40) H 02/13/21 13:28 ALT 25 units/L (7-56) 02/13/21 13:28 Alkaline Phosphatase 42 units/L (35-129) 02/13/21 13:28 Ammonia 48.0 umol/L (25-60) 02/13/21 13:28 Lactate Dehydrogenase 1381 units/L (91-180) H 02/14/21 10:40 Total Creatine Kinase 1572 units/L (30-135) H 02/13/21 13:28 Troponin T 0.033 ng/mL (0.00-0.029) H 02/13/21 18:39 C-Reactive Protein 36.70 mg/dL (0.00-1.30) H 02/14/21 10:40 NT-Pro-B Natriuret Pep 3473 pg/mL (0-900) H 02/13/21 13:36 Total Protein 8.1 g/dL (6.3-8.2) 02/13/21 13:28 Albumin 3.4 g/dL (3.9-5) L 02/13/21 13:28 Albumin/Globulin Ratio 0.7 % 02/13/21 13:28 Triglycerides 181 mg/dL (2-149) H 02/13/21 16:27 Cholesterol 130 mg/dL (50-199) 02/13/21 16:27 LDL Cholesterol Direct 68 mg/dL (50-130) 02/13/21 16:27 HDL Cholesterol 40 mg/dL (40-59) 02/13/21 16:27 Cholesterol/HDL Ratio 3.25 % 02/13/21 16:27 Lipase 35 units/L (13-60) 02/13/21 13:28 Procalcitonin 58.83 ng/mL (<0.15) 02/14/21 10:40 TSH 8.530 mlU/mL (0.270-4.200) H 02/13/21 13:28 Arterial Blood Glucose 257 mg/dL (65-95) H 02/15/21 04:07 Arterial Blood Ionized Calcium 3.8 mg/dL (4.6-5.3) L 02/15/21 04:07 Urine Color Laura (Yellow) 02/13/21 21: Urine Turbidity Turbid (Clear) 02/13/21 21: Urine pH 5.0 (5.0-7.0) 02/13/21 21: Ur Specific [place] 1.025 (1.003-1.030) 02/13/21 21: Urine Protein >500 mg/dL (Negative) 02/13/21 21:27 Urine Glucose (UA) Neg mg/dL (Negative) 02/13/21 21: Urine Ketones Neg mg/dL (Negative) 02/13/21 21:27 Urine Blood Lg (Negative) 02/13/21 21: Urine Nitrite Neg (Negative) 02/13/21 21:27 Urine Bilirubin Neg (Negative) 02/13/21 21:27 Urine Urobilinogen < 2.0 mg/dL (<2.0) 02/13/21 21:27 Ur Leukocyte Esterase Neg (Negative) 02/13/21 21:27 Urine WBC (Auto) 31.0 /HPF (0.0-6.0) H 02/13/21 21:27 Urine RBC (Auto) 8.0 /HPF (0.0-6.0) 02/13/21 21:27 U Epithel Cells (Auto) 4.0 /HPF (0-13.0) 02/13/21 21:27 Urine Bacteria (Auto) 2+ /HPF (Negative) 02/13/21 21:27 Urine WBC Clumps 3+ /HPF 02/13/21 21:27 Hyaline Casts 5 /LPF 02/13/21 21:27 Urine Mucus 2+ /HPF 02/13/21 21:27 Urine Yeast (Budding) 3+ /HPF 02/13/21 21:27 Urine Creatinine 80.0 mg/dL (0.1-20.0) H 02/14/21 18:45 Urine Sodium 33 mmol/L 02/14/21 18:45 Salicylates < 0.3 mg/dL (2.8-20.0) L 02/13/21 13:28 Urine Opiates Screen Negative 02/13/21 21:27 Urine Methadone Screen Negative 02/13/21 21:27 Acetaminophen 5.0 ug/mL (10.0-30.0) L 02/13/21 13:28 Ur Barbiturates Screen Negative 02/13/21 21:27 Ur Phencyclidine Scrn Negative 02/13/21 21:27 Ur Amphetamines Screen Negative 02/13/21 21:27 U Benzodiazepines Scrn Negative 02/13/21 21:27 Urine Cocaine Screen Negative 02/13/21 21:27 U Marijuana (THC) Screen Negative 02/13/21 21:27 Drugs of Abuse Note Disclamer 02/13/21 21:27 Plasma/Serum Alcohol < 0.01 % (0-0.07) 02/13/21 13:28 Coronavirus (PCR) Positive (Negative) A 02/14/21 Unknown Blood Type B POSITIVE 02/13/21 13:31 Antibody Screen Negative 02/13/21 13:31 Microbiology: Microbiology 02/13/21 13:48 Peripheral/Venous Blood Culture - Preliminary NO GROWTH AFTER 48 HOURS 02/13/21 13:28 Peripheral/Venous Blood Culture - Preliminary NO GROWTH AFTER 48 HOURS 02/13/21 17:23 Tracheal Aspirate Sputum Culture - Final 02/13/21 Unknown Urine,Catheterized - Indwelling Catheter Urine Culture - Final NO GROWTH AFTER 48 HOURS Cho/IV: Voiding Method Indwelling Catheter Active Medications - Current Medications Current Medications: Generic Name Dose Route Start Last Admin Trade Name Freq PRN Reason Stop Dose Admin Acetaminophen 650 mg 02/13/21 15:22 Acetaminophen 325 Mg Tab PO Q6H PRN Pain, Mild (1-3) Acetaminophen 650 mg 02/13/21 15:22 02/13/21 20:30 Acetaminophen 650 Mg Rect Supp PA 650 mg Q6H PRN Administration Pain MILD(1-3)/Fever >100.5/ZACARIAS Albuterol 2.5 mg 02/13/21 15:22 Albuterol 2.5 Mg/3 Ml Nebu IH Q3H PRN Shortness Of Breath Lipase/Protease/Amylase 1 each 02/14/21 10:43 Lipase 10,500/Protease 25,000/Amylase 43,750 (Units) Dr Iqbal FEEDTUBE PRN PRN For Clogged Feeding Tube Ascorbic Acid 500 mg 02/13/21 22:00 02/15/21 11:37 Ascorbic Acid 500 Mg Tab PO 500 mg BID RUDY Administration Cholecalciferol 1,000 unit 02/13/21 16:00 02/15/21 11:37 Cholecalciferol (Vit D3) 1000 Unit (25 Mcg) Tab PO 1,000 unit QDAY RUDY Administration Dextrose 50 ml 02/14/21 11:15 Dextrose 50% In Water (25gm) 50 Ml Syringe IV Q30MIN PRN Hypoglycemia Protocol Famotidine 20 mg 02/14/21 10:00 02/15/21 11:37 Famotidine 20 Mg/2 Ml Inj IV 20 mg DAILY RUDY Administration Fentanyl 50 mcg 02/13/21 16:05 Fentanyl 100 Mcg/2 Ml Inj IV Q10MIN PRN ANAL[place] Heparin Sodium (Porcine) 4,400 unit 02/14/21 13:18 Heparin 10,000 Units/10 Ml Vial 40 unit/kg (4400 unit) IV Q6H PRN Anti-Xa Assay < 0.1 units/ml Hydrophilic Ointment 1 applic 02/13/21 22:52 Lip Therapy Vaseline TP Q2HR PRN Dry Lips Ceftriaxone Sodium 2 gm in 100 mls @ 200 mls/hr 02/13/21 16:00 02/15/21 17:13 Rocephin/Ns 2 Gm/100 Ml IV 200 mls/hr Q24H RUDY Administration Protocol Azithromycin 500 mg in 250 mls @ 250 mls/hr 02/14/21 15:00 02/15/21 17:13 Zithromax/Ns IV 250 mls/hr Q24H RUDY Administration Protocol Heparin Sodium/Sodium Chloride 25,000 unit in 500 mls @ 30 mls/hr 02/13/21 17:00 02/15/21 11:08 Heparin/ 0.45% Nacl-25,000 Unit/500 Ml IV 1,250 units/hr TITR RUDY 25 mls/hr Titration Protocol 1,500 UNITS/HR Fentanyl Citrate 2,000 mcg in 100 mls @ 5.55 mls/hr 02/13/21 17:00 02/15/21 12:56 Fentanyl Drip Premix IV 2 mcg/kg/hr TITR RUDY 11.1 mls/hr Administration Protocol 1 MCG/KG/HR Norepinephrine 4 mg in 250 mls @ 75 mls/hr 02/13/21 18:00 02/14/21 01:55 Levophed Drip 4 Mg/Ns 250 Ml IV 0 mcg/min TITR RUDY 0 mls/hr Titration Protocol 20 MCG/MIN Propofol 1,000 mg in 100 mls @ 3.33 mls/hr 02/13/21 23:00 02/15/21 17:12 Diprivan 10 Mg/Ml IV 25 mcg/kg/min TITR RUDY 16.65 mls/hr Administration Protocol 5 MCG/KG/MIN Midazolam HCl 100 mg/ Sodium 100 mls @ 1 mls/hr 02/14/21 09:00 02/15/21 02:30 Chloride IV 0 mg/hr TITR RUDY 0 mls/hr Titration Protocol 1 MG/HR Dopamine HCl/Dextrose 800 mg in 250 mls @ 4.163 mls/hr 02/14/21 09:00 02/15/21 12:56 Intropin Drip 800 Mg/D5w 250 Ml IV 8 mcg/kg/min TITR RUDY 16.65 mls/hr Administration Protocol 2 MCG/KG/MIN Insulin Glargine 10 units 02/15/21 22:00 Insulin Glargine 100 Units/Ml SUB-Q QHS RUDY Insulin Human Regular 0 units 02/14/21 12:00 02/15/21 18:00 Insulin Regular, Human 100 Units/1 Ml SUB-Q 3 units Q6H [facility] Administration Protocol Methylprednisolone Sodium Succinate 40 mg 02/15/21 01:00 02/15/21 17:11 Methylprednisolone Sod Succinate 125 Mg/2 Ml Inj IV 40 mg Q8H RUDY Administration Midazolam HCl 2 mg 02/14/21 08:24 Midazolam 2 Mg/2 Ml Inj IV Q10MIN PRN Sedation Multi-Ingred Cream/Lotion/Oil/Oint 1 applic 02/13/21 16:05 Mineral Oil/Petrolatum, White Ophth Oint 3.5 Gm OU Q4H PRN Dry Eye(s) Senna/Docusate Sodium 1 tab 02/13/21 22:00 02/15/21 11:37 Sennosides/Docusate Sodium 8.6/50 Mg Tab FEEDTUBE 1 tab BID RUDY Administration Simple Syrup 15 ml 02/14/21 10:43 Simple Syrup 15 Ml FEEDTUBE PRN PRN Hypoglycemia Simple Syrup 30 ml 02/14/21 10:43 Simple Syrup 15 Ml FEEDTUBE PRN PRN Hypoglycemia Sodium Bicarbonate 325 mg 02/14/21 10:43 Sodium Bicarbonate 325 Mg Tab FEEDTUBE PRN PRN For Clogged Feeding Tube Sodium Chloride 10 ml 02/13/21 22:00 02/15/21 11:38 Sodium Chloride 0.9% 10 Ml Flush Syringe IV 10 ml BID RUDY Administration Sodium Chloride 10 ml 02/13/21 15:22 Sodium Chloride 0.9% 10 Ml Flush Syringe IV PRN PRN LINE FLUSH Zinc Sulfate 220 mg 02/13/21 22:00 02/15/21 11:37 Zinc Sulfate 220 Mg Cap PO 220 mg BID RUDY Administration Nutrition/Malnutrition Assess - Dietary Evaluation Nutrition/Malnutrition Findings: Nutrition Notes Start: 02/14/21 10:34 Freq: Status: Active Protocol: Document 02/14/21 10:34 (Rec: 02/14/21 10:42 [id number]) Nutrition Notes Need for Assessment generated from: MD Order Initial or Follow up Assessment Current Diagnosis Acute Kidney Injury, Hypertension,Respiratory Failure Other Pertinent Diagnosis SIRS, pneu, COVID PUI Current Diet Renal Labs/Tests BUN 41 Cr 2.4 BG 210 Pertinent Medications Propofol at 19.98 ml/hr (527 kcal) Solu Medrol Height 5 ft 6 in Weight 111 kg [place] Body Weight (kg) 59.09 BMI 39.4 Weight Status Morbidly Obese Subjective/Other Information MD consult to eval intakes and TF. Pt on vent. Burn Absent Trauma Absent Current % PO Negligible Minimum of two criteria No physical signs of malnutrition #1 Nutrition Diagnosis Inadequate oral intake Etiology ARF As Evidenced by Signs and Symptoms pt on vent and unable to consume PO Is patient on ventilator? Yes Is Patient Ambulatory and/or Out of Bed No REE-([facility]-confined to bed) 1986.392 Kcal/Kg value to use for calculation 11 Approximate Energy Requirements Using 1221 kcal/Kg Calculation Used for Recommendations Kcal/kg Additional Notes Protein: (>2g/kg IBW) greater than 118g Fluid: 1 ml/kcal or per MD Nutrition Intervention Change Diet Order: Start TF Nutrition Support: Nepro 1.8 at 30 ml/hr Flush 150 ml q4h or per MD Kcal 1,296 Protein (gm) 58 Fluid (mL) 523 Goal #1 Meet at least 75% of kcal needs and meet protein needs as best as possible via TF Anticipated Discharge Needs: Unable to determine at this time Follow-Up By: 02/16/21 Additional Comments F/u: TF start, tolerance and propofol rate
[2021-02-15] MEDS: AZITHROMYCIN/NS 500 MG/250 ML 500 MG/250 ML BAG IV SCH (17:13)
[2021-02-15] MEDS: cefTRIAXone/NS 2 GM/100 ML 2 GM/100 ML BAG IV SCH (17:13)
[2021-02-15] MEDS: HEPARIN/ 0.45% NACL DRIP 25,000 UNIT/500 ML BAG IV SCH (19:36)
--- NOTE | 2021-02-15 19:37 | Vascular Lab Report ---
DUPLEX DOPPLER LOWER EXTREMITY VEINS, BILATERAL INDICATION: r/o dvt. Pneumonia, Covid 19 P UI TECHNIQUE: Duplex doppler imaging was performed through the veins of both lower extremities using venous rachel nela and other maneuvers. COMPARISON: None available. FINDINGS: Right Common Femoral vein: Negative. Right Superficial Femoral vein: Negative. Right Popliteal vein: Negative. Right Calf veins: Negative. Left Common Femoral vein: Negative. Left Superficial Femoral vein: Negative. Left Popliteal vein: Negative. Left Calf veins: Negative. Additional findings: None. IMPRESSION: 1. No sonographic evidence for DVT in either lower extremity. Signer Name: Catarina Ayala MD Signed: 02/15/2021 7:32 PM Workstation Name: [id number]
[2021-02-15] MEDS ORDERED: INSULIN GLARGINE 100 UNITS/ML SUB-Q SCH (22:00)
[2021-02-16] MEDS: INSULIN REGULAR, HUMAN 100 UNITS/1 ML SUB-Q SCH ×4 (00:30→17:32)
[2021-02-16] MEDS: methylPREDNISolone Sod Succinate 125 MG/2 ML INJ IV SCH ×3 (00:30→16:15)
--- NOTE | 2021-02-16 01:50 | Event Note ---
Date: 02/16/21 CAMI PADRON was called at 1:27 AM. Patient was found PEA. CPR was given as per ACLS protocol. 1 epinephrine is given. Patient regained ROSC. Patient has pulse and blood pressure. We will monitor the patient closely.
[2021-02-16] MEDS: DOPamine/D5W 800 MG/250 ML 800 MG/250 ML BAG IV SCH ×3 (01:56→19:27)
[2021-02-16 06:03] LABS: Calcium 7.5 mg/dL (8.4-10.2)
[2021-02-16] MEDS: fentaNYL DRIP Premix 2,000 MCG/100 ML BAG IV SCH ×4 (06:29→23:48)
[2021-02-16] MEDS ORDERED: EPINEPHrine 1 MG/10 ML SYRINGE ONE (08:26)
[2021-02-16] MEDS: MIDAZOLAM 100 MG in SODIUM CHLORIDE 0.9% 80 ML IV SCH (08:36)
--- NOTE | 2021-02-16 08:56 | Progress Note ---
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 Unresponsive and obtunded HEAD: Normocephalic. No obvious signs of trauma. ENT: Dry mucous membranes. Bag valve mask applied EYES: Pupils are constricted bilaterally but remain reactive. NECK: Trachea is midline. LUNGS: Bilateral breath sounds with [id number] ventilation. There are scattered rales throughout. CARDIOVASCULAR: Regular rate and rhythm. 3/6 systolic murmur VASCULAR: Cap refill < 2 seconds ABDOMEN: Abdomen is soft and nondistended. There is central adiposity SKIN: Skin is warm and dry NEURO: Patient is obtunded and unresponsive even to pain. GCS is 3 MUSCULOSKELETAL: No obvious deformities. - Vital Signs Vital signs: Vital Signs - 12hr 02/15/21 02/15/21 02/15/21 21:00 21:15 21:30 Temperature Pulse Rate 55 L 52 L 52 L Respiratory 25 H 25 H 25 H Rate Blood Pressure 142/91 162/90 162/90 O2 Sat by Pulse 99 100 Oximetry 02/15/21 02/15/21 02/15/21 21:46 22:00 22:15 Temperature Pulse Rate 46 L 48 L 51 L Respiratory 25 H 25 H 25 H Rate Blood Pressure 130/65 140/70 140/70 O2 Sat by Pulse 99 99 98 Oximetry 02/15/21 02/15/21 02/15/21 22:30 22:45 23:00 Temperature Pulse Rate 49 L 50 L 49 L Respiratory 25 H 25 H 25 H Rate Blood Pressure 142/70 141/73 140/70 O2 Sat by Pulse 99 98 99 Oximetry 02/15/21 02/15/21 02/15/21 23:04 23:15 23:30 Temperature Pulse Rate 49 L 49 L 49 L Respiratory 25 H 25 H 25 H Rate Blood Pressure 140/70 144/72 144/68 O2 Sat by Pulse 98 98 98 Oximetry 02/15/21 02/16/21 02/16/21 23:45 00:00 00:15 Temperature 97.0 F L Pulse Rate 50 L 50 L 49 L Respiratory 25 H 25 H 25 H Rate Blood Pressure 141/70 141/70 141/71 O2 Sat by Pulse 98 98 98 Oximetry 02/16/21 02/16/21 02/16/21 00:30 00:45 00:55 Temperature Pulse Rate 50 L 49 L 49 L Respiratory 25 H 25 H Rate Blood Pressure 141/71 142/71 141/70 O2 Sat by Pulse 98 98 98 Oximetry 02/16/21 02/16/21 02/16/21 01:00 01:16 01:30 Temperature Pulse Rate 49 L 51 L 110 H Respiratory 25 H 26 H 25 H Rate Blood Pressure 140/72 65/40 221/127 O2 Sat by Pulse 100 92 90 Oximetry 02/16/21 02/16/21 02/16/21 01:46 02:00 02:15 Temperature Pulse Rate 144 H 100 H 86 Respiratory 25 H 25 H 31 H Rate Blood Pressure 131/92 105/57 113/82 O2 Sat by Pulse 90 84 86 Oximetry 02/16/21 02/16/21 02/16/21 02:30 02:45 03:00 Temperature Pulse Rate 72 103 H 80 Respiratory 16 22 18 Rate Blood Pressure 121/65 125/63 121/71 O2 Sat by Pulse 86 87 86 Oximetry 02/16/21 02/16/21 02/16/21 03:15 03:30 03:45 Temperature Pulse Rate 75 77 76 Respiratory 25 H 25 H 25 H Rate Blood Pressure 139/82 139/82 138/83 O2 Sat by Pulse 96 93 93 Oximetry 02/16/21 02/16/21 02/16/21 04:00 04:16 04:30 Temperature 97.9 F Pulse Rate 45 L 70 82 Respiratory 13 21 25 H Rate Blood Pressure 138/83 117/66 142/85 O2 Sat by Pulse 86 86 100 Oximetry 02/16/21 02/16/21 02/16/21 04:45 04:48 05:00 Temperature Pulse Rate 77 80 79 Respiratory 25 H 25 H Rate Blood Pressure 140/81 137/82 O2 Sat by Pulse 97 86 Oximetry 02/16/21 02/16/21 02/16/21 05:15 05:30 05:35 Temperature Pulse Rate 75 75 82 Respiratory 25 H 25 H Rate Blood Pressure 137/80 139/81 117/66 O2 Sat by Pulse 87 82 L 100 Oximetry 02/16/21 02/16/21 02/16/21 05:45 05:53 06:00 Temperature Pulse Rate 78 74 Respiratory 25 H 25 H Rate Blood Pressure 140/83 140/82 O2 Sat by Pulse 90 100 85 Oximetry 02/16/21 02/16/21 02/16/21 06:15 06:30 06:46 Temperature Pulse Rate 74 73 63 Respiratory 28 H 28 H 18 Rate Blood Pressure 143/84 141/87 107/63 O2 Sat by Pulse 88 87 71 L Oximetry 02/16/21 07:16 Temperature Pulse Rate 63 Respiratory Rate Blood Pressure 105/81 O2 Sat by Pulse 68 L Oximetry - Lab 02/15/21 05:00 02/16/21 04:30 Most recent lab results ABG pH 7.292 (7.320-7.450) L 02/16/21 08:00 ABG O2 Saturation 55.3 (0-100) 02/16/21 08:00 Calcium 7.5 mg/dL (8.4-10.2) L 02/16/21 04:30 Magnesium 2.60 mg/dL (1.7-2.3) H 02/13/21 13:28 Urine Creatinine 80.0 mg/dL (0.1-20.0) H 02/14/21 18:45 Urine Sodium 33 mmol/L 02/14/21 18:45 Medications & Allergies - Medications Allergies/Adverse Reactions: Allergies Penicillins Adverse Reaction (Verified 02/13/21 15:39) Unknown Home Medications: Home Medications Medication Instructions Recorded Confirmed Last Taken Type Insulin NPH Hum/Reg Insulin Hm See Protocol SQ DAILY 02/13/21 02/13/21 Unknown History [Novolin 70-30 100 Unit/ml Vial] metFORMIN [Glucophage] 500 mg PO TID 02/13/21 02/13/21 Unknown History Active Medications: Generic Name Dose Route Start Last Admin Trade Name Freq PRN Reason Stop Dose Admin Acetaminophen 650 mg 02/13/21 15:22 Acetaminophen 325 Mg Tab PO Q6H PRN Pain, Mild (1-3) Acetaminophen 650 mg 02/13/21 15:22 02/13/21 20:30 Acetaminophen 650 Mg Rect Supp [place] 650 mg Q6H PRN Administration Pain MILD(1-3)/Fever >100.5/ZACARIAS Albuterol 2.5 mg 02/13/21 15:22 Albuterol 2.5 Mg/3 Ml Nebu IH Q3H PRN Shortness Of Breath Lipase/Protease/Amylase 1 each 02/14/21 10:43 Lipase 10,500/Protease 25,000/Amylase 43,750 (Units) Dr Iqbal FEEDTUBE PRN PRN For Clogged Feeding Tube Ascorbic Acid 500 mg 02/13/21 22:00 02/15/21 21:08 Ascorbic Acid 500 Mg Tab PO 500 mg BID RUDY Administration Cholecalciferol 1,000 unit 02/13/21 16:00 02/15/21 11:37 Cholecalciferol (Vit D3) 1000 Unit (25 Mcg) Tab PO 1,000 unit QDAY RUDY Administration Dextrose 50 ml 02/14/21 11:15 Dextrose 50% In Water (25gm) 50 Ml Syringe IV Q30MIN PRN Hypoglycemia Protocol Famotidine 20 mg 02/14/21 10:00 02/15/21 11:37 Famotidine 20 Mg/2 Ml Inj IV 20 mg DAILY RUDY Administration Fentanyl 50 mcg 02/13/21 16:05 Fentanyl 100 Mcg/2 Ml Inj IV Q10MIN PRN [facility]NAL[place] Heparin Sodium (Porcine) 4,400 unit 02/14/21 13:18 Heparin 10,000 Units/10 Ml Vial 40 unit/kg (4400 unit) IV Q6H PRN Anti-Xa Assay < 0.1 units/ml Hydrophilic Ointment 1 applic 02/13/21 22:52 Lip Therapy Vaseline TP Q2HR PRN Dry Lips Ceftriaxone Sodium 2 gm in 100 mls @ 200 mls/hr 02/13/21 16:00 02/15/21 17:13 Rocephin/Ns 2 Gm/100 Ml IV 200 mls/hr Q24H RUDY Administration Protocol Azithromycin 500 mg in 250 mls @ 250 mls/hr 02/14/21 15:00 02/15/21 17:13 Zithromax/Ns IV 250 mls/hr Q24H RUDY Administration Protocol Heparin Sodium/Sodium Chloride 25,000 unit in 500 mls @ 30 mls/hr 02/13/21 17:00 02/15/21 20:00 Heparin/ 0.45% Nacl-25,000 Unit/500 Ml IV 1,250 units/hr TITR RUDY 25 mls/hr Titration Protocol 1,500 UNITS/HR Fentanyl Citrate 2,000 mcg in 100 mls @ 5.55 mls/hr 02/13/21 17:00 02/16/21 06:29 Fentanyl Drip Premix IV 2 mcg/kg/hr TITR RUDY 11.1 mls/hr Administration Protocol 1 MCG/KG/HR Norepinephrine 4 mg in 250 mls @ 75 mls/hr 02/13/21 18:00 02/14/21 01:55 Levophed Drip 4 Mg/Ns 250 Ml IV 0 mcg/min TITR RUDY 0 mls/hr Titration Protocol 20 MCG/MIN Propofol 1,000 mg in 100 mls @ 3.33 mls/hr 02/13/21 23:00 02/16/21 03:11 Diprivan 10 Mg/Ml IV 5 mcg/kg/min TITR RUDY 3.33 mls/hr Titration Protocol 5 MCG/KG/MIN Midazolam HCl 100 mg/ Sodium 100 mls @ 1 mls/hr 02/14/21 09:00 02/16/21 08:36 Chloride IV 1 mg/hr TITR RUDY 1 mls/hr Administration Protocol 1 MG/HR Dopamine HCl/Dextrose 800 mg in 250 mls @ 4.163 mls/hr 02/14/21 09:00 02/16/21 08:36 Intropin Drip 800 Mg/D5w 250 Ml IV 16 mcg/kg/min TITR RUDY 33.3 mls/hr Administration Protocol 2 MCG/KG/MIN Insulin Glargine 10 units 02/15/21 22:00 02/15/21 21:09 Insulin Glargine 100 Units/Ml SUB-Q 10 units QHS [facility] Administration Insulin Human Regular 0 units 02/14/21 12:00 02/16/21 05:43 Insulin Regular, Human 100 Units/1 Ml SUB-Q 3 units Q6H [facility] Administration Protocol Methylprednisolone Sodium Succinate 40 mg 02/15/21 01:00 02/16/21 00:30 Methylprednisolone Sod Succinate 125 Mg/2 Ml Inj IV 40 mg Q8H RUDY Administration Midazolam HCl 2 mg 02/14/21 08:24 Midazolam 2 Mg/2 Ml Inj IV Q10MIN PRN Sedation Multi-Ingred Cream/Lotion/Oil/Oint 1 applic 02/13/21 16:05 Mineral Oil/Petrolatum, White Ophth Oint 3.5 Gm OU Q4H PRN Dry Eye(s) Senna/Docusate Sodium 1 tab 02/13/21 22:00 02/15/21 21:08 Sennosides/Docusate Sodium 8.6/50 Mg Tab FEEDTUBE 1 tab BID RUDY Administration Simple Syrup 15 ml 02/14/21 10:43 Simple Syrup 15 Ml FEEDTUBE PRN PRN Hypoglycemia Simple Syrup 30 ml 02/14/21 10:43 Simple Syrup 15 Ml FEEDTUBE PRN PRN Hypoglycemia Sodium Bicarbonate 325 mg 02/14/21 10:43 Sodium Bicarbonate 325 Mg Tab FEEDTUBE PRN PRN For Clogged Feeding Tube Sodium Chloride 10 ml 02/13/21 22:00 02/15/21 21:08 Sodium Chloride 0.9% 10 Ml Flush Syringe IV 10 ml BID RUDY Administration Sodium Chloride 10 ml 02/13/21 15:22 Sodium Chloride 0.9% 10 Ml Flush Syringe IV PRN PRN LINE FLUSH Zinc Sulfate 220 mg 02/13/21 22:00 02/15/21 21:08 Zinc Sulfate 220 Mg Cap PO 220 mg BID RUDY Administration
[2021-02-16] MEDS: SENNOSIDES/DOCUSATE SODIUM 8.6/50 MG TAB FEEDTUBE SCH ×2 (09:37→22:45)
[2021-02-16] MEDS: FAMOTIDINE 20 MG/2 ML INJ IV SCH (09:37)
[2021-02-16] MEDS: ASCORBIC ACID 500 MG TAB PO SCH ×2 (09:37→22:44)
[2021-02-16] MEDS: CHOLECALCIFEROL (VIT D3) 1000 UNIT (25 mcg) TAB PO SCH (09:37)
[2021-02-16] MEDS: ZINC SULFATE 220 MG CAP PO SCH ×2 (09:37→22:44)
--- NOTE | 2021-02-16 09:58 | XRay Report ---
CHEST 1 VIEW INDICATION / CLINICAL INFORMATION: follow up respiratory failure STUDY TIME: 826 COMPARISON: 02/14/2021 FINDINGS: SUPPORT DEVICES: Endotracheal tube has withdrawn mildly with tip projecting at the upper edge of the sternal notch and measuring approximately 7.4 cm from the solange compared to approximately 5.8 cm pre viously. Nasogastric tube and central line are unchanged. HEART / MEDIASTINUM: Stable LUNGS / PLEURA: Bilateral edema/infiltrates have moderately worsened, particularly in the right lung. No pneumothorax. ADDITIONAL FINDINGS: No significant additional findings. Signer Name: Kimani Contreras MD Signed: 02/16/2021 9:54 AM Workstation Name: [id number]
[2021-02-16 11:00] LABS: ABG HCO3 20.5 mmol/L (20.0-26.0); ABG Methemoglobin 0.9 % (0.0-1.5); ABG PCO2 39.8 mm Hg; ABG PH 7.33 pH Units (7.350-7.450)
[2021-02-16 11:03] LABS: ABG PO2 37.9 mm Hg (80.0-90.0)
[2021-02-16 11:43] LABS: C-Reactive Protein 33.1 mg/dL (0.00-1.30)
--- NOTE | 2021-02-16 11:56 | Progress Note ---
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 & VTE prophylaxis - PT/OT/ROM exercises - continue mobility protocols for pressure ulcer prophylaxis - Monitor hemodynamics closely - continue other care per attending / other consultants - discharge planning ongoing concurrently COVID SPECIFIC INTERVENTIONS - Remdesivir as per ID/Pulmonary developed protocols (not a candidate re: SONIA) - continue systemic steroids for severe COVID-19 infection (Solumedrol) - follow repeat COVID tests results - zinc and vitamin C supplementation - Monitor inflammatory markers per facility protocol - ferritin, Ddimer, CRP - therapeutic anticoagulation per system Protocol based on d-dimer and clinical considerations (IV Heparin drip) - Continue contact and airborne isolation .... Re-evaluate in am & prn CONDITION: CRITICAL PROGNOSIS: GUARDED CODE STATUS: FULL CODE The high probability of a clinically significant, sudden or life-threatening deterioration of the [respiratory, cardiovascular & neurologic] system(s) required my full and direct attention, intervention and personal management. The aggregate critical care time was [34] minutes without overlap. Time includes spent on; [x] Data Review and interpretation [x] Patient assessment and monitoring of vital signs [x] Documentation [x] Medication orders and management Subjective Date of service: 02/16/21 Principal diagnosis: AHRF; ARDS; Pneumonia; PUI COVID-19; OHS; SONIA; Hyperkalemia; AMS Interval history: Patient is seen today for: Acute hypoxemic respiratory failure; ARDS; Pneumonia; PUI COVID-19; OHS; SONIA; Hyperkalemia; Rhabdomyolysis; Acute encephalopathy Seen and examined at bedside; 24hour events reviewed; nursing and respiratory care staff consulted; no adverse overnight events reported to me; resting in bed; s/p PEA arrest overnight; remains on MVS and peep increased to 22 to keep O2 sats > 88%; intermittent coughing and any exertion causes desaturations to the 50's at times; no emesis or overt aspiration Objective Vital Signs - 12hr 02/16/21 02/16/21 02/16/21 00:00 00:15 00:30 Temperature 97.0 F L Pulse Rate 50 L 49 L 50 L Respiratory 25 H 25 H 25 H Rate Blood Pressure 141/70 141/71 141/71 O2 Sat by Pulse 98 98 98 Oximetry 02/16/21 02/16/21 02/16/21 00:45 00:55 01:00 Temperature Pulse Rate 49 L 49 L 49 L Respiratory 25 H 25 H Rate Blood Pressure 142/71 141/70 140/72 O2 Sat by Pulse 98 98 100 Oximetry 02/16/21 02/16/21 02/16/21 01:16 01:30 01:46 Temperature Pulse Rate 51 L 110 H 144 H Respiratory 26 H 25 H 25 H Rate Blood Pressure 65/40 221/127 131/92 O2 Sat by Pulse 92 90 90 Oximetry 02/16/21 02/16/21 02/16/21 02:00 02:15 02:30 Temperature Pulse Rate 100 H 86 72 Respiratory 25 H 31 H 16 Rate Blood Pressure 105/57 113/82 121/65 O2 Sat by Pulse 84 86 86 Oximetry 02/16/21 02/16/21 02/16/21 02:45 03:00 03:15 Temperature Pulse Rate 103 H 80 75 Respiratory 22 18 25 H Rate Blood Pressure 125/63 121/71 139/82 O2 Sat by Pulse 87 86 96 Oximetry 02/16/21 02/16/21 02/16/21 03:30 03:45 04:00 Temperature 97.9 F Pulse Rate 77 76 45 L Respiratory 25 H 25 H 13 Rate Blood Pressure 139/82 138/83 138/83 O2 Sat by Pulse 93 93 86 Oximetry 02/16/21 02/16/21 02/16/21 04:16 04:30 04:45 Temperature Pulse Rate 70 82 77 Respiratory 21 25 H 25 H Rate Blood Pressure 117/66 142/85 140/81 O2 Sat by Pulse 86 100 97 Oximetry 02/16/21 02/16/21 02/16/21 04:48 05:00 05:15 Temperature Pulse Rate 80 79 75 Respiratory 25 H 25 H Rate Blood Pressure 137/82 137/80 O2 Sat by Pulse 86 87 Oximetry 02/16/21 02/16/21 02/16/21 05:30 05:35 05:45 Temperature Pulse Rate 75 82 78 Respiratory 25 H 25 H Rate Blood Pressure 139/81 117/66 140/83 O2 Sat by Pulse 82 L 100 90 Oximetry 02/16/21 02/16/21 02/16/21 05:53 06:00 06:15 Temperature Pulse Rate 74 74 Respiratory 25 H 28 H Rate Blood Pressure 140/82 143/84 O2 Sat by Pulse 100 85 88 Oximetry 02/16/21 02/16/21 02/16/21 06:30 06:46 07:16 Temperature Pulse Rate 73 63 63 Respiratory 28 H 18 Rate Blood Pressure 141/87 107/63 105/81 O2 Sat by Pulse 87 71 L 68 L Oximetry 02/16/21 07:47 Temperature Pulse Rate 89 Respiratory Rate Blood Pressure 120/69 O2 Sat by Pulse 72 L Oximetry Constitutional: appears uncomfortable (sedated), other (elderly lady without significant patient ventilator dyssynchrony) Eyes: non-icteric ENT: oropharynx moist, other (ETT 24 cm JANETH) Neck: supple, no lymphadenopathy, no JVD, other (large circumference) Effort: mildly labored Ascultation: Bilateral: diminished breath sounds, rales Percussion: Bilateral: not dull Cardiovascular: regular rate and rhythm Gastrointestinal: normoactive bowel sounds, soft, non-tender, non-distended Integumentary: normal Extremities: no edema, pulses normal, no ischemia or petechiae, edema Neurologic: non-focal exam (grossly), pupils equal and round, CN II-XII normal, motor strength normal and (sedated) Psychiatric: mood appropriate, affect normal CBC and BMP: 02/15/21 05:00 02/16/21 04:30 ABG, PT/INR, D-dimer: ABG ABG pH 7.330 pH Units (7.350-7.450) L 02/16/21 10:45 ABG pCO2 39.8 mm Hg 02/16/21 10:45 POC ABG pO2 30.7 mmHg (83-108) L 02/16/21 10:10 ABG pO2 37.9 mm Hg (80.0-90.0) L* 02/16/21 10:45 ABG O2 Saturation 64.0 % (95.0-99.0) L 02/16/21 10:45 PT/INR, D-dimer PT 15.3 Sec. (12.2-14.9) H 02/13/21 16:27 INR 1.16 (0.87-1.13) H 02/13/21 16:27 D-Dimer 2846.74 ng/mlDDU (0-234) H 02/16/21 10:31 Abnormal lab findings: Abnormal Labs 02/13/21 02/13/21 02/13/21 12:46 13:28 13:28 WBC MCV MCH 25 L RDW 15.7 H Lymph % (Auto) 5.9 L Lymph # (Auto) 0.3 L Seg Neutrophils % 89.3 H PT 15.0 H INR APTT 23.8 L D-Dimer 478.95 H Heparin Anti-Xa Level ABG pH POC ABG pCO2 POC ABG pO2 ABG pO2 ABG O2 Saturation ABG Base Excess ABG Hemoglobin ABG Oxyhemoglobin ABG Potassium ABG Glucose Oxyhemoglobin Carboxyhemoglobin Potassium Chloride BUN Creatinine Glucose POC Glucose 190 H Lactic Acid Calcium Magnesium Ferritin AST Lactate Dehydrogenase Total Creatine Kinase Troponin T C-Reactive Protein NT-Pro-B Natriuret Pep Albumin Triglycerides TSH Arterial Blood Glucose Arterial Blood Ionized Calcium Urine WBC (Auto) Urine Creatinine Salicylates Acetaminophen Coronavirus (PCR) 02/13/21 02/13/21 02/13/21 13:28 13:28 13:28 WBC MCV MCH RDW Lymph % (Auto) Lymph # (Auto) Seg Neutrophils % PT INR APTT D-Dimer Heparin Anti-Xa Level ABG pH POC ABG pCO2 POC ABG pO2 ABG pO2 ABG O2 Saturation ABG Base Excess ABG Hemoglobin ABG Oxyhemoglobin ABG Potassium ABG Glucose Oxyhemoglobin Carboxyhemoglobin Potassium 5.1 H Chloride 95.7 L BUN 36 H Creatinine 2.0 H Glucose 172 H POC Glucose Lactic Acid 6.50 H* Calcium 7.5 L Magnesium Ferritin AST 81 H Lactate Dehydrogenase Total Creatine Kinase 1572 H Troponin T C-Reactive Protein NT-Pro-B Natriuret Pep Albumin 3.4 L Triglycerides TSH 8.530 H Arterial Blood Glucose Arterial Blood Ionized Calcium Urine WBC (Auto) Urine Creatinine Salicylates Acetaminophen Coronavirus (PCR) 02/13/21 02/13/21 02/13/21 13:28 13:28 13:28 WBC MCV MCH RDW Lymph % (Auto) Lymph # (Auto) Seg Neutrophils % PT INR APTT D-Dimer Heparin Anti-Xa Level ABG pH POC ABG pCO2 POC ABG pO2 ABG pO2 ABG O2 Saturation ABG Base Excess ABG Hemoglobin ABG Oxyhemoglobin ABG Potassium ABG Glucose Oxyhemoglobin Carboxyhemoglobin Potassium Chloride BUN Creatinine Glucose POC Glucose Lactic Acid Calcium Magnesium 2.60 H Ferritin AST Lactate Dehydrogenase Total Creatine Kinase Troponin T C-Reactive Protein NT-Pro-B Natriuret Pep Albumin Triglycerides TSH Arterial Blood Glucose Arterial Blood Ionized Calcium Urine WBC (Auto) Urine Creatinine Salicylates < 0.3 L Acetaminophen 5.0 L Coronavirus (PCR) 02/13/21 02/13/21 02/13/21 13:36 13:36 13:36 WBC MCV MCH RDW Lymph % (Auto) Lymph # (Auto) Seg Neutrophils % PT INR APTT D-Dimer Heparin Anti-Xa Level ABG pH POC ABG pCO2 POC ABG pO2 ABG pO2 ABG O2 Saturation ABG Base Excess ABG Hemoglobin ABG Oxyhemoglobin ABG Potassium ABG Glucose Oxyhemoglobin Carboxyhemoglobin Potassium Chloride BUN Creatinine Glucose 176 H POC Glucose Lactic Acid Calcium Magnesium Ferritin 1667.0 H AST Lactate Dehydrogenase 713 H Total Creatine Kinase Troponin T C-Reactive Protein 30.70 H NT-Pro-B Natriuret Pep 3473 H Albumin Triglycerides TSH Arterial Blood Glucose Arterial Blood Ionized Calcium Urine WBC (Auto) Urine Creatinine Salicylates Acetaminophen Coronavirus (PCR) 02/13/21 02/13/21 02/13/21 14:18 16:27 16:27 WBC MCV MCH RDW Lymph % (Auto) Lymph # (Auto) Seg Neutrophils % PT INR APTT D-Dimer Heparin Anti-Xa Level ABG pH 7.528 H POC ABG pCO2 POC ABG pO2 49.8 L ABG pO2 ABG O2 Saturation ABG Base Excess ABG Hemoglobin 11.8 L ABG Oxyhemoglobin 85.8 L ABG Potassium ABG Glucose 180 H Oxyhemoglobin Carboxyhemoglobin Potassium Chloride BUN Creatinine Glucose POC Glucose Lactic Acid 5.30 H* Calcium Magnesium Ferritin AST Lactate Dehydrogenase Total Creatine Kinase Troponin T 0.034 H D C-Reactive Protein NT-Pro-B Natriuret Pep Albumin Triglycerides 181 H TSH Arterial Blood Glucose 180 H Arterial Blood Ionized Calcium 3.7 L Urine WBC (Auto) Urine Creatinine Salicylates Acetaminophen Coronavirus (PCR) 02/13/21 02/13/21 02/13/21 16:27 18:39 18:39 WBC MCV MCH RDW Lymph % (Auto) Lymph # (Auto) Seg Neutrophils % PT 15.3 H INR 1.16 H APTT D-Dimer Heparin Anti-Xa Level ABG pH POC ABG pCO2 POC ABG pO2 ABG pO2 ABG O2 Saturation ABG Base Excess ABG Hemoglobin ABG Oxyhemoglobin ABG Potassium ABG Glucose Oxyhemoglobin Carboxyhemoglobin Potassium Chloride BUN Creatinine Glucose POC Glucose Lactic Acid 3.80 H* Calcium Magnesium Ferritin AST Lactate Dehydrogenase Total Creatine Kinase Troponin T 0.033 H C-Reactive Protein NT-Pro-B Natriuret Pep Albumin Triglycerides TSH Arterial Blood Glucose Arterial Blood Ionized Calcium Urine WBC (Auto) Urine Creatinine Salicylates Acetaminophen Coronavirus (PCR) 02/13/21 02/13/21 02/14/21 21:00 21:27 03:54 WBC MCV MCH RDW Lymph % (Auto) Lymph # (Auto) Seg Neutrophils % PT INR APTT D-Dimer Heparin Anti-Xa Level 0.96 H ABG pH POC ABG pCO2 POC ABG pO2 44.5 L ABG pO2 ABG O2 Saturation ABG Base Excess ABG Hemoglobin ABG Oxyhemoglobin 78.3 L ABG Potassium ABG Glucose 181 H Oxyhemoglobin Carboxyhemoglobin Potassium Chloride BUN Creatinine Glucose POC Glucose Lactic Acid Calcium Magnesium Ferritin AST Lactate Dehydrogenase Total Creatine Kinase Troponin T C-Reactive Protein NT-Pro-B Natriuret Pep Albumin Triglycerides TSH Arterial Blood Glucose 181 H Arterial Blood Ionized Calcium 4.2 L Urine WBC (Auto) 31.0 H Urine Creatinine Salicylates Acetaminophen Coronavirus (PCR) 02/14/21 02/14/21 02/14/21 03:54 10:40 10:40 WBC MCV MCH RDW Lymph % (Auto) Lymph # (Auto) Seg Neutrophils % PT INR APTT D-Dimer 1007.53 H Heparin Anti-Xa Level ABG pH POC ABG pCO2 POC ABG pO2 ABG pO2 ABG O2 Saturation ABG Base Excess ABG Hemoglobin ABG Oxyhemoglobin ABG Potassium ABG Glucose Oxyhemoglobin Carboxyhemoglobin Potassium Chloride BUN 41 H Creatinine 2.4 H Glucose 210 H POC Glucose Lactic Acid Calcium 7.7 L Magnesium Ferritin 1148.0 H AST Lactate Dehydrogenase Total Creatine Kinase Troponin T C-Reactive Protein NT-Pro-B Natriuret Pep Albumin Triglycerides TSH Arterial Blood Glucose Arterial Blood Ionized Calcium Urine WBC (Auto) Urine Creatinine Salicylates Acetaminophen Coronavirus (PCR) 02/14/21 02/14/21 02/14/21 10:40 11:33 17:51 WBC MCV MCH RDW Lymph % (Auto) Lymph # (Auto) Seg Neutrophils % PT INR APTT D-Dimer Heparin Anti-Xa Level ABG pH 7.285 L POC ABG pCO2 51.7 H POC ABG pO2 36.7 L ABG pO2 ABG O2 Saturation ABG Base Excess ABG Hemoglobin ABG Oxyhemoglobin 57.9 L ABG Potassium ABG Glucose 310 H Oxyhemoglobin Carboxyhemoglobin Potassium Chloride BUN Creatinine Glucose POC Glucose 265 H Lactic Acid Calcium Magnesium Ferritin AST Lactate Dehydrogenase 1381 H Total Creatine Kinase Troponin T C-Reactive Protein 36.70 H NT-Pro-B Natriuret Pep Albumin Triglycerides TSH Arterial Blood Glucose 310 H Arterial Blood Ionized Calcium 3.9 L Urine WBC (Auto) Urine Creatinine Salicylates Acetaminophen Coronavirus (PCR) 02/14/21 02/14/21 02/14/21 18:00 18:15 18:33 WBC MCV MCH RDW Lymph % (Auto) Lymph # (Auto) Seg Neutrophils % PT INR APTT D-Dimer Heparin Anti-Xa Level 1.09 H ABG pH POC ABG pCO2 POC ABG pO2 41.4 L ABG pO2 ABG O2 Saturation ABG Base Excess ABG Hemoglobin ABG Oxyhemoglobin 70.5 L ABG Potassium ABG Glucose 308 H Oxyhemoglobin Carboxyhemoglobin Potassium Chloride BUN Creatinine Glucose POC Glucose 260 H Lactic Acid Calcium Magnesium Ferritin AST Lactate Dehydrogenase Total Creatine Kinase Troponin T C-Reactive Protein NT-Pro-B Natriuret Pep Albumin Triglycerides TSH Arterial Blood Glucose 308 H Arterial Blood Ionized Calcium 4.0 L Urine WBC (Auto) Urine Creatinine Salicylates Acetaminophen Coronavirus (PCR) 02/14/21 02/14/21 02/14/21 18:45 18:45 Unknown WBC MCV MCH RDW Lymph % (Auto) Lymph # (Auto) Seg Neutrophils % PT INR APTT D-Dimer Heparin Anti-Xa Level ABG pH POC ABG pCO2 POC ABG pO2 ABG pO2 ABG O2 Saturation ABG Base Excess ABG Hemoglobin ABG Oxyhemoglobin ABG Potassium ABG Glucose Oxyhemoglobin Carboxyhemoglobin Potassium Chloride BUN Creatinine Glucose POC Glucose Lactic Acid 2.70 H* Calcium Magnesium Ferritin AST Lactate Dehydrogenase Total Creatine Kinase Troponin T C-Reactive Protein NT-Pro-B Natriuret Pep Albumin Triglycerides TSH Arterial Blood Glucose Arterial Blood Ionized Calcium Urine WBC (Auto) Urine Creatinine 80.0 H Salicylates Acetaminophen Coronavirus (PCR) Positive A 02/15/21 02/15/21 02/15/21 00:25 04:07 05:00 WBC 16.0 H MCV 77 L MCH 25 L RDW 16.1 H Lymph % (Auto) Lymph # (Auto) Seg Neutrophils % PT INR APTT D-Dimer Heparin Anti-Xa Level ABG pH POC ABG pCO2 POC ABG pO2 53.2 L ABG pO2 ABG O2 Saturation ABG Base Excess ABG Hemoglobin ABG Oxyhemoglobin 85.1 L ABG Potassium ABG Glucose 257 H Oxyhemoglobin Carboxyhemoglobin 0.4 L Potassium Chloride BUN Creatinine Glucose POC Glucose 256 H Lactic Acid Calcium Magnesium Ferritin AST Lactate Dehydrogenase Total Creatine Kinase Troponin T C-Reactive Protein NT-Pro-B Natriuret Pep Albumin Triglycerides TSH Arterial Blood Glucose 257 H Arterial Blood Ionized Calcium 3.8 L Urine WBC (Auto) Urine Creatinine Salicylates Acetaminophen Coronavirus (PCR) 02/15/21 02/15/21 02/15/21 05:00 05:00 05:43 WBC MCV MCH RDW Lymph % (Auto) Lymph # (Auto) Seg Neutrophils % PT INR APTT D-Dimer Heparin Anti-Xa Level 0.92 H ABG pH POC ABG pCO2 POC ABG pO2 ABG pO2 ABG O2 Saturation ABG Base Excess ABG Hemoglobin ABG Oxyhemoglobin ABG Potassium ABG Glucose Oxyhemoglobin Carboxyhemoglobin Potassium Chloride BUN 50 H Creatinine 3.2 H Glucose 247 H POC Glucose 253 H Lactic Acid Calcium 7.0 L Magnesium Ferritin AST Lactate Dehydrogenase Total Creatine Kinase Troponin T C-Reactive Protein NT-Pro-B Natriuret Pep Albumin Triglycerides TSH Arterial Blood Glucose Arterial Blood Ionized Calcium Urine WBC (Auto) Urine Creatinine Salicylates Acetaminophen Coronavirus (PCR) 02/15/21 02/15/21 02/15/21 12:11 15:36 23:29 WBC MCV MCH RDW Lymph % (Auto) Lymph # (Auto) Seg Neutrophils % PT INR APTT D-Dimer Heparin Anti-Xa Level ABG pH POC ABG pCO2 POC ABG pO2 ABG pO2 ABG O2 Saturation ABG Base Excess ABG Hemoglobin ABG Oxyhemoglobin ABG Potassium ABG Glucose Oxyhemoglobin Carboxyhemoglobin Potassium Chloride BUN Creatinine Glucose POC Glucose 145 H 200 H 220 H Lactic Acid Calcium Magnesium Ferritin AST Lactate Dehydrogenase Total Creatine Kinase Troponin T C-Reactive Protein NT-Pro-B Natriuret Pep Albumin Triglycerides TSH Arterial Blood Glucose Arterial Blood Ionized Calcium Urine WBC (Auto) Urine Creatinine Salicylates Acetaminophen Coronavirus (PCR) 02/16/21 02/16/21 02/16/21 01:31 04:00 04:30 WBC MCV MCH RDW Lymph % (Auto) Lymph # (Auto) Seg Neutrophils % PT INR APTT D-Dimer Heparin Anti-Xa Level ABG pH 7.243 L POC ABG pCO2 48.6 H POC ABG pO2 57.1 L ABG pO2 ABG O2 Saturation ABG Base Excess ABG Hemoglobin ABG Oxyhemoglobin 82.1 L ABG Potassium ABG Glucose 287 H Oxyhemoglobin Carboxyhemoglobin Potassium Chloride BUN 66 H Creatinine 4.0 H Glucose 277 H POC Glucose 241 H Lactic Acid Calcium 7.5 L Magnesium Ferritin AST Lactate Dehydrogenase Total Creatine Kinase Troponin T C-Reactive Protein NT-Pro-B Natriuret Pep Albumin Triglycerides 351 H TSH Arterial Blood Glucose 287 H Arterial Blood Ionized Calcium 4.0 L Urine WBC (Auto) Urine Creatinine Salicylates Acetaminophen Coronavirus (PCR) 02/16/21 02/16/21 02/16/21 05:06 08:00 10:10 WBC MCV MCH RDW Lymph % (Auto) Lymph # (Auto) Seg Neutrophils % PT INR APTT D-Dimer Heparin Anti-Xa Level ABG pH 7.292 L POC ABG pCO2 POC ABG pO2 33.5 L 30.7 L ABG pO2 ABG O2 Saturation ABG Base Excess ABG Hemoglobin ABG Oxyhemoglobin 55.0 L 50.9 L ABG Potassium 4.7 H 4.6 H ABG Glucose 249 H 215 H Oxyhemoglobin Carboxyhemoglobin 0.4 L Potassium Chloride BUN Creatinine Glucose POC Glucose 242 H Lactic Acid Calcium Magnesium Ferritin AST Lactate Dehydrogenase Total Creatine Kinase Troponin T C-Reactive Protein NT-Pro-B Natriuret Pep Albumin Triglycerides TSH Arterial Blood Glucose 249 H 215 H Arterial Blood Ionized Calcium 3.7 L 3.7 L Urine WBC (Auto) Urine Creatinine Salicylates Acetaminophen Coronavirus (PCR) 02/16/21 02/16/21 02/16/21 10:31 10:31 10:31 WBC MCV MCH RDW Lymph % (Auto) Lymph # (Auto) Seg Neutrophils % PT INR APTT D-Dimer 2846.74 H Heparin Anti-Xa Level ABG pH POC ABG pCO2 POC ABG pO2 ABG pO2 ABG O2 Saturation ABG Base Excess ABG Hemoglobin ABG Oxyhemoglobin ABG Potassium ABG Glucose Oxyhemoglobin Carboxyhemoglobin Potassium Chloride BUN Creatinine Glucose POC Glucose Lactic Acid Calcium Magnesium Ferritin 1164.0 H AST Lactate Dehydrogenase Total Creatine Kinase Troponin T C-Reactive Protein 33.10 H NT-Pro-B Natriuret Pep Albumin Triglycerides TSH Arterial Blood Glucose Arterial Blood Ionized Calcium Urine WBC (Auto) Urine Creatinine Salicylates Acetaminophen Coronavirus (PCR) 02/16/21 10:45 WBC MCV MCH RDW Lymph % (Auto) Lymph # (Auto) Seg Neutrophils % PT INR APTT D-Dimer Heparin Anti-Xa Level ABG pH 7.330 L POC ABG pCO2 POC ABG pO2 ABG pO2 37.9 L* ABG O2 Saturation 64.0 L ABG Base Excess -5.0 L ABG Hemoglobin 11.8 L ABG Oxyhemoglobin ABG Potassium ABG Glucose Oxyhemoglobin 62.7 L Carboxyhemoglobin Potassium Chloride BUN Creatinine Glucose POC Glucose Lactic Acid Calcium Magnesium Ferritin AST Lactate Dehydrogenase Total Creatine Kinase Troponin T C-Reactive Protein NT-Pro-B Natriuret Pep Albumin Triglycerides TSH Arterial Blood Glucose Arterial Blood Ionized Calcium Urine WBC (Auto) Urine Creatinine Salicylates Acetaminophen Coronavirus (PCR) Chest x-ray: image reviewed (no pneumothorax) Allied health notes reviewed: nursing
--- NOTE | 2021-02-16 12:56 | Progress Note ---
Assessment and Plan Cultures: SARS CoV2 PCR: positive 02/13/2021 blood culture: no growth 02/13/2021 tracheal aspirate culture: Usual respiratory shivani Urine culture: no growth A/P: 70-year-old female with obesity hypoventilation syndrome, hypertension, hypothyroidism admitted to the hospital after she was found unresponsive: #PEA arrest: CAMI PADRON 02/16/2021. #Septic shock: Secondary to below. #Bilateral pneumonia secondary to COVID-19. Severe disease. #Acute hypoxic respiratory failure: Secondary to COVID-19. On the vent. #SONIA: Renally adjust antibiotics. #Mild transaminitis: Likely from sepsis. #Possible UTI: culture with no growth. Recs: Continue steroids Continue empiric antibiotics: Ceftriaxone, azithromycin x 5 days Given renal failure, not a candidate for Remdesivir Procalcitonin significantly elevated, not an Actemra candidate extremely poor prognosis Andra Sol MD, FACP [facility], [place], [facility] ([facility]) O: [phone] F: [phone] Subjective Date of service: 02/16/21 Principal diagnosis: AHRF; ARDS; Pneumonia; PUI COVID-19; OHS; SONIA; Hype rkalemia; AMS Interval history: Afebrile. Remains on the vent. High requirements, 100% FiO2, 22 PEEP. On dopamine. Weaned off Levophed CRP remains persistently elevated at 33.1. CAMI PADRON was called last night, PEA arrest requiring ACLS, subsequent ROSC. Objective - Exam Narrative Exam: Physical Exam (reviewed in chart to minimize risk of transmission) Constitutional: deferred Head, Ears, Nose: deferred Eyes: deferred Neck: deferred Oral: deferred Cardiovascular: deferred Respiratory: deferred GI: deferred Musculoskeletal: deferred Skin: deferred Hem/Lymphatic: deferred Psych: deferred Neurological: deferred - Constitutional Vitals: Vital Signs Temp Pulse Resp BP Pulse Ox 97.9 F 89 18 120/69 72 L 02/16/21 04:00 02/16/21 07:47 02/16/21 06:46 02/16/21 07:47 02/16/21 07:47 Temperature -Last 24 Hours Temperature 97.9 F Temperature 97.0 F Temperature 97.9 F Temperature 98.1 F - Labs CBC & Chem 7: 02/15/21 05:00 02/16/21 04:30 Labs: Abnormal lab results 02/13/21 02/15/21 02/15/21 Range/Units 12:46 15:36 23:29 D-Dimer (0-234) ng/mlDDU ABG pH (7.320-7.450) POC ABG pCO2 (32.0-48.0) mmHg POC ABG pO2 (83-108) mmHg ABG pO2 (80.0-90.0) mm Hg ABG O2 Saturation (95.0-99.0) % ABG Base Excess (-2.0-3.0) mmol/L ABG Hemoglobin (12.0-16.0) gm/dl ABG Oxyhemoglobin (94-98) ABG Potassium (3.40-4.50) mmol/L ABG Glucose (65-95) mg/dL Oxyhemoglobin (95.0-99.0) % Carboxyhemoglobin (0.5-1.5) BUN (7-17) mg/dL Creatinine (0.6-1.2) mg/dL Glucose (65-100) mg/dL POC Glucose 190 H 200 H 220 H (70-105) mg/dL Calcium (8.4-10.2) mg/dL Ferritin (10.0-200.0) ng/mL Lactate Dehydrogenase (91-180) units/L C-Reactive Protein (0.00-1.30) mg/dL Triglycerides (2-149) mg/dL Arterial Blood Glucose (65-95) mg/dL Arterial Blood Ionized Calcium (4.6-5.3) mg/dL 02/16/21 02/16/21 02/16/21 Range/Units 01:31 04:00 04:30 D-Dimer (0-234) ng/mlDDU ABG pH 7.243 L (7.320-7.450) POC ABG pCO2 48.6 H (32.0-48.0) mmHg POC ABG pO2 57.1 L (83-108) mmHg ABG pO2 (80.0-90.0) mm Hg ABG O2 Saturation (95.0-99.0) % ABG Base Excess (-2.0-3.0) mmol/L ABG Hemoglobin (12.0-16.0) gm/dl ABG Oxyhemoglobin 82.1 L (94-98) ABG Potassium (3.40-4.50) mmol/L ABG Glucose 287 H (65-95) mg/dL Oxyhemoglobin (95.0-99.0) % Carboxyhemoglobin (0.5-1.5) BUN 66 H (7-17) mg/dL Creatinine 4.0 H (0.6-1.2) mg/dL Glucose 277 H (65-100) mg/dL POC Glucose 241 H (70-105) mg/dL Calcium 7.5 L (8.4-10.2) mg/dL Ferritin (10.0-200.0) ng/mL Lactate Dehydrogenase (91-180) units/L C-Reactive Protein (0.00-1.30) mg/dL Triglycerides 351 H (2-149) mg/dL Arterial Blood Glucose 287 H (65-95) mg/dL Arterial Blood Ionized Calcium 4.0 L (4.6-5.3) mg/dL 02/16/21 02/16/21 02/16/21 Range/Units 05:06 08:00 10:10 D-Dimer (0-234) ng/mlDDU ABG pH 7.292 L (7.320-7.450) POC ABG pCO2 (32.0-48.0) mmHg POC ABG pO2 33.5 L 30.7 L (83-108) mmHg ABG pO2 (80.0-90.0) mm Hg ABG O2 Saturation (95.0-99.0) % ABG Base Excess (-2.0-3.0) mmol/L ABG Hemoglobin (12.0-16.0) gm/dl ABG Oxyhemoglobin 55.0 L 50.9 L (94-98) ABG Potassium 4.7 H 4.6 H (3.40-4.50) mmol/L ABG Glucose 249 H 215 H (65-95) mg/dL Oxyhemoglobin (95.0-99.0) % Carboxyhemoglobin 0.4 L (0.5-1.5) BUN (7-17) mg/dL Creatinine (0.6-1.2) mg/dL Glucose (65-100) mg/dL POC Glucose 242 H (70-105) mg/dL Calcium (8.4-10.2) mg/dL Ferritin (10.0-200.0) ng/mL Lactate Dehydrogenase (91-180) units/L C-Reactive Protein (0.00-1.30) mg/dL Triglycerides (2-149) mg/dL Arterial Blood Glucose 249 H 215 H (65-95) mg/dL Arterial Blood Ionized Calcium 3.7 L 3.7 L (4.6-5.3) mg/dL 02/16/21 02/16/21 02/16/21 Range/Units 10:31 10:31 10:31 D-Dimer 2846.74 H (0-234) ng/mlDDU ABG pH (7.320-7.450) POC ABG pCO2 (32.0-48.0) mmHg POC ABG pO2 (83-108) mmHg ABG pO2 (80.0-90.0) mm Hg ABG O2 Saturation (95.0-99.0) % ABG Base Excess (-2.0-3.0) mmol/L ABG Hemoglobin (12.0-16.0) gm/dl ABG Oxyhemoglobin (94-98) ABG Potassium (3.40-4.50) mmol/L ABG Glucose (65-95) mg/dL Oxyhemoglobin (95.0-99.0) % Carboxyhemoglobin (0.5-1.5) BUN (7-17) mg/dL Creatinine (0.6-1.2) mg/dL Glucose (65-100) mg/dL POC Glucose (70-105) mg/dL Calcium (8.4-10.2) mg/dL Ferritin 1164.0 H (10.0-200.0) ng/mL Lactate Dehydrogenase 1678 H (91-180) units/L C-Reactive Protein 33.10 H (0.00-1.30) mg/dL Triglycerides (2-149) mg/dL Arterial Blood Glucose (65-95) mg/dL Arterial Blood Ionized Calcium (4.6-5.3) mg/dL 02/16/21 02/16/21 Range/Units 10:45 12:06 D-Dimer (0-234) ng/mlDDU ABG pH 7.330 L (7.320-7.450) POC ABG pCO2 (32.0-48.0) mmHg POC ABG pO2 (83-108) mmHg ABG pO2 37.9 L* (80.0-90.0) mm Hg ABG O2 Saturation 64.0 L (95.0-99.0) % ABG Base Excess -5.0 L (-2.0-3.0) mmol/L ABG Hemoglobin 11.8 L (12.0-16.0) gm/dl ABG Oxyhemoglobin (94-98) ABG Potassium (3.40-4.50) mmol/L ABG Glucose (65-95) mg/dL Oxyhemoglobin 62.7 L (95.0-99.0) % Carboxyhemoglobin (0.5-1.5) BUN (7-17) mg/dL Creatinine (0.6-1.2) mg/dL Glucose (65-100) mg/dL POC Glucose 223 H (70-105) mg/dL Calcium (8.4-10.2) mg/dL Ferritin (10.0-200.0) ng/mL Lactate Dehydrogenase (91-180) units/L C-Reactive Protein (0.00-1.30) mg/dL Triglycerides (2-149) mg/dL Arterial Blood Glucose (65-95) mg/dL Arterial Blood Ionized Calcium (4.6-5.3) mg/dL
--- NOTE | 2021-02-16 13:24 | Electrocardiograph Report ---
[facility] Test Date: 2021-02-13 Test Time: 21:21:36 Pat Name: CANDY KHAN Department: Room: A260 1 Gender: F Hand Ii Thermal Cutter: ALEXIS : 1950 Requested By: ELVIRA MIRELES Order Number: [id number] Reading MD: Tricia Lundberg Measurements Intervals [place] Rate: 54 P: 64 [place]: 126 QRS: 3 QRSD: 88 T: 31 QT: 473 QTc: 451 Interpretive Statements Sinus bradycardia No previous ECG available for comparison Electronically Signed On 02-16-2021 13:24:05 EDT by Tricia Lundberg
[2021-02-16] MEDS ORDERED: ROCURONIUM 50 MG/5 ML INJ IV ONE (14:00)
[2021-02-16] MEDS: AZITHROMYCIN/NS 500 MG/250 ML 500 MG/250 ML BAG IV SCH (14:45)
[2021-02-16] MEDS: HEPARIN/ 0.45% NACL DRIP 25,000 UNIT/500 ML BAG IV SCH (14:58)
[2021-02-16] MEDS ORDERED: SODIUM CHLORIDE 0.9% 1000 ML IV SOLN ONE (15:23)
[2021-02-16 15:31] LABS: Hematocrit 45.9 % (30.3-42.9); Hemoglobin 15.1 gm/dl (10.1-14.3); Mean Corpuscular HGB Conc 33 % (30-34); Mean Corpuscular Volume 75 fl (79-97); Platelet Count 215 K/mm3 (140-440); Red Blood Count 6.08 M/mm3 (3.65-5.03); Red Cell Distribution Width 16.4 % (13.2-15.2)
[2021-02-16] MEDS: cefTRIAXone/NS 2 GM/100 ML 2 GM/100 ML BAG IV SCH (15:56)
--- NOTE | 2021-02-16 18:30 | Procedure Note ---
Date of procedure: 02/16/21 Pre-op diagnosis: covid pna, ines, acute respiratory failure Post-op diagnosis: same Procedure: Trialysis Dr Vasquez consented family for line placement. Left IJ trialysis catheter placed, over the wire without difficulty. Sterile technique utilized. Area prepped with chlorhexidine/ full body drape utilized. Line was sutured, no biopatch placed d/t not being available and tegaderm dressing applied. Chest xray to confirm placement. No pneumothorax. RN called to bedside. Pt tolerated procedure well. VS remained stable throughout procedure. (time spent placing line not included in daily critical care time) CCT 60 min Anesthesia: local Surgeon: SHANTEL GARCIA Swimming Instructor: ELKIN GERMAIN Estimated blood loss: minimal Disposition: ICU
--- NOTE | 2021-02-16 19:08 | Progress Note ---
<SHANTEL GARCIA - Last Filed: 02/16/21 19:10> Assessment and Plan Assessment and plan: This is a 70 yo female with OHSm HTN, hypothyroidism admitted with acute hypoxic resp failure, covid 19 pna, septic shock, metabolic acidosis, toxic metabolic encephalopathy, acute kidney injury NEURO: metabolic encephalopathy; sedated keep sedated to raas goal neg 2-3 versed/fentanyl/propofol d/t desatting with decreased sedation SAT daily as allowed with oxygenation NOK daugther CV- hypotension due to sepsis/sedation; bradycardia in part due to hypoxia; hx HTN MAP > 65 SB-SR dopamine NE PRN no echo on record Resp- ARDS; acute hypoxic resp failure due to covid19 pna; hx hypoventilation syndrome intubated 02-13 mechanical vent- see RT notes for changes AC -20-.100 follow ABG and chest xray b infiltrates on AM xray AM ABG reviewed GI: risk protein cynthia malnutrition TF nutrition following pepcid bowel reg - SONIA/ ATN/ metabolic acidosis nephrology following-HD to start HD within 24-48 hours Vascath placed today net pos 1700 over the last 24 hours trend Cr 2 on admit Trend electrolytes strict I/O daily weight Heme- coagulopathic with covid; on AC VTE heparin gtt no bleeding on exam trend CBC ID- covid19 pna with resulting sepsis covid pos 8-23 ID following azithro and ceftriaxone no remdes given SONIA no acterma given inc procal methylpred per ID afebrile WBC 16 trend WBC and temp curve trend inflammatory markers follow culture data Endo -hx DM with hyperglycemia; morbid obesity; hx hypothyrodism glargine HS, titrate as needed SSI avoid hypoglycemia TSH high on 02/13; T3 pending restarted on home synthroid The high probability of a clinically significant, sudden or life threatening d eterioration of the [60] system(s) required my full and direct attention, intervention and personal management. The aggregate critical care time was [] minutes. This time is in addition to time spent performing reported procedures but includes the following: [x] Data Review and interpretation [x] Patient assessment and monitoring of vital signs [x] Documentation [x] Medication orders and management Disposition Plan: icu Total Time Spent with Patient (Minutes): 60 History Interval history: 70 YO Female with Obesity Hypoventilation Syndrome, HTN, Hypothyroidism presents to ED for evaluation. Patient is intubated and on ventilatory support at the time my evaluation is unable to write history. Patient history provided by EMS staff, ED staff, as well as the patient family was made available by telephone for interview. As per daughter the patient was in her usual state of health around bedtime which was 2100 hrs. The patient was found down and unresponsive this morning. EMS was notified and upon arrival the patient was found to be in respiratory distress with a pulse oximetry of 50%. The patient was transported to [facility] for further care and evaluation of the aforementioned symptoms. The patient was seen and evaluated in the emergency department. All lab and imaging studies reviewed. The patient was found to have a pulse oximetry in the 60s which is consistent with acute hypoxemic respiratory failure. The patient was deemed unable to protect her airway and was intubated and placed on ventilatory support. The patient was found to have a blood pressure of 69/33. The patient was also found to have pneumonia on chest x-ray which was complicated by septic shock, metabolic acidosis, toxic metabolic encephalopathy, acute kidney injury. Patient admitted to ICU due to multiple organ system failure. Critical care care team consulted in ED. Patient initiated on sepsis protocol as well as coronavirus protocol. Patient found to have poor prognosis. Advanced care planning conducted in ED. No prior admission for review. No medication listed at time of admission for rec onciliation. 8 Admitted through ER 8- proned; when supined this AM became hypoxic- took some time to recover 24 desaturated when supined this AM- now recovered 02/16: Saturation issues->increased sedation which resolved it today, Nephro to initiate HD in 24-48 hours, trialysis placed. Hospitalist Physical - Constitutional Vitals: Temp Pulse Resp BP Pulse Ox 97.9 F 54 L 18 121/56 94 02/16/21 12:00 02/16/21 17:44 02/16/21 06:46 02/16/21 17:44 02/16/21 17:44 General appearance: Present: mild distress, well-nourished - EENT Eyes: Present: PERRL, EOM intact ENT: hearing intact, clear oral mucosa - Neck Neck: Present: normal ROM - Respiratory Respiratory effort: normal Respiratory: bilateral: diminished - Cardiovascular Rhythm: regular Heart Sounds: Present: S1 & S2 - Extremities Extremities: no ischemia, pulses intact, pulses symmetrical Peripheral Pulses: within normal limits - Abdominal General gastrointestinal: soft - Integumentary Integumentary: Present: warm, dry - Psychiatric Psychiatric: other (sedated) - Neurologic Neurologic: other (sedated) - Allied Health Allied health notes reviewed: nursing, RT HEART Score - HEART Score Troponin: Troponin T 0.033 ng/mL (0.00-0.029) H 02/13/21 18:39 Results - Labs CBC & Chem 7: 02/16/21 13:23 02/16/21 04:30 Labs: Laboratory Last Values WBC 20.3 K/mm3 (4.5-11.0) H 02/16/21 13:23 RBC 6.08 M/mm3 (3.65-5.03) H 02/16/21 13:23 Hgb 15.1 gm/dl (10.1-14.3) H D 02/16/21 13:23 Hct 45.9 % (30.3-42.9) H D 02/16/21 13:23 MCV 75 fl (79-97) L 02/16/21 13:23 MCH 25 pg (28-32) L 02/16/21 13:23 MCHC 33 % (30-34) 02/16/21 13:23 RDW 16.4 % (13.2-15.2) H 02/16/21 13:23 Plt Count 215 K/mm3 (140-440) 02/16/21 13:23 Lymph % (Auto) 5.9 % (13.4-35.0) L 02/13/21 13:28 [place] % (Auto) 4.5 % (0.0-7.3) 02/13/21 13:28 Eos % (Auto) 0.0 % (0.0-4.3) 02/13/21 13:28 Baso % (Auto) 0.3 % (0.0-1.8) 02/13/21 13:28 Lymph # (Auto) 0.3 K/mm3 (1.2-5.4) L 02/13/21 13:28 [place] # (Auto) 0.3 K/mm3 (0.0-0.8) 02/13/21 13:28 Eos # (Auto) 0.0 K/mm3 (0.0-0.4) 02/13/21 13:28 Baso # (Auto) 0.0 K/mm3 (0.0-0.1) 02/13/21 13:28 Seg Neutrophils % 89.3 % (40.0-70.0) H 02/13/21 13:28 Seg Neutrophils # 5.2 K/mm3 (1.8-7.7) 02/13/21 13:28 PT 15.3 Sec. (12.2-14.9) H 02/13/21 16:27 INR 1.16 (0.87-1.13) H 02/13/21 16:27 APTT 27.5 Sec. (24.2-36.6) 02/13/21 16:27 D-Dimer 2846.74 ng/mlDDU (0-234) H 02/16/21 10:31 Heparin Anti-Xa Level 0.42 U.I./ml (0.3-0.7) 02/15/21 20:24 ABG pH 7.330 pH Units (7.350-7.450) L 02/16/21 10:45 POC ABG pCO2 47.3 mmHg (32.0-48.0) 02/16/21 08:00 ABG pCO2 39.8 mm Hg 02/16/21 10:45 POC ABG pO2 30.7 mmHg (83-108) L 02/16/21 10:10 ABG pO2 37.9 mm Hg (80.0-90.0) L* 02/16/21 10:45 POC ABG HCO3 22.3 02/16/21 08:00 ABG HCO3 20.5 mmol/L (20.0-26.0) 02/16/21 10:45 ABG O2 Saturation 64.0 % (95.0-99.0) L 02/16/21 10:45 ABG O2 Content 10.4 (0.0-44) 02/16/21 10:45 POC ABG Base Excess -4.3 02/16/21 08:00 ABG Base Excess -5.0 mmol/L (-2.0-3.0) L 02/16/21 10:45 ABG Hemoglobin 11.8 gm/dl (12.0-16.0) L 02/16/21 10:45 ABG Oxyhemoglobin 50.9 (94-98) L 02/16/21 10:10 ABG Carboxyhemoglobin 1.2 % (0.0-5.0) 02/16/21 10:45 ABG Methemoglobin 0.9 % (0.0-1.5) 02/16/21 10:45 ABG Sodium 136.3 mmol/L (136.0-145.0) 02/16/21 10:10 ABG Potassium 4.6 mmol/L (3.40-4.50) H 02/16/21 10:10 ABG Chloride 103.0 mmol/L (98-107) 02/16/21 10:10 ABG Glucose 215 mg/dL (65-95) H 02/16/21 10:10 Oxyhemoglobin 62.7 % (95.0-99.0) L 02/16/21 10:45 Carboxyhemoglobin 1.1 (0.5-1.5) 02/16/21 10:10 FiO2 100 % 02/16/21 10:45 FiO2 % 100.0 02/16/21 10:10 Sodium 140 mmol/L (137-145) 02/16/21 04:30 Potassium 4.4 mmol/L (3.6-5.0) 02/16/21 04:30 Chloride 100.6 mmol/L (98-107) 02/16/21 04:30 Carbon Dioxide 23 mmol/L (22-30) 02/16/21 04:30 Anion Gap 21 mmol/L 02/16/21 04:30 BUN 66 mg/dL (7-17) H 02/16/21 04:30 Creatinine 4.0 mg/dL (0.6-1.2) H 02/16/21 04:30 Estimated GFR 13 ml/min 02/16/21 04:30 BUN/Creatinine Ratio 17 % 02/16/21 04:30 Glucose 277 mg/dL (65-100) H 02/16/21 04:30 POC Glucose 272 mg/dL (70-105) H 02/16/21 17:24 Lactic Acid 1.90 mmol/L (0.7-2.0) 02/14/21 22:33 Calcium 7.5 mg/dL (8.4-10.2) L 02/16/21 04:30 Magnesium 2.60 mg/dL (1.7-2.3) H 02/13/21 13:28 Ferritin 1164.0 ng/mL (10.0-200.0) H 02/16/21 10:31 Total Bilirubin 0.40 mg/dL (0.1-1.2) 02/13/21 13:28 Direct Bilirubin < 0.2 mg/dL (0-0.2) 02/13/21 13:28 Indirect Bilirubin 0.2 mg/dL 02/13/21 13:28 AST 81 units/L (5-40) H 02/13/21 13:28 ALT 25 units/L (7-56) 02/13/21 13:28 Alkaline Phosphatase 42 units/L (35-129) 02/13/21 13:28 Ammonia 48.0 umol/L (25-60) 02/13/21 13:28 Lactate Dehydrogenase 1678 units/L (91-180) H 02/16/21 10:31 Total Creatine Kinase 1572 units/L (30-135) H 02/13/21 13:28 Troponin T 0.033 ng/mL (0.00-0.029) H 02/13/21 18:39 C-Reactive Protein 33.10 mg/dL (0.00-1.30) H 02/16/21 10:31 NT-Pro-B Natriuret Pep 3473 pg/mL (0-900) H 02/13/21 13:36 Total Protein 8.1 g/dL (6.3-8.2) 02/13/21 13:28 Albumin 3.4 g/dL (3.9-5) L 02/13/21 13:28 Albumin/Globulin Ratio 0.7 % 02/13/21 13:28 Triglycerides 351 mg/dL (2-149) H 02/16/21 04:30 Cholesterol 130 mg/dL (50-199) 02/13/21 16:27 LDL Cholesterol Direct 68 mg/dL (50-130) 02/13/21 16:27 HDL Cholesterol 40 mg/dL (40-59) 02/13/21 16:27 Cholesterol/HDL Ratio 3.25 % 02/13/21 16:27 Lipase 35 units/L (13-60) 02/13/21 13:28 Procalcitonin 58.83 ng/mL (<0.15) 02/14/21 10:40 TSH 8.530 mlU/mL (0.270-4.200) H 02/13/21 13:28 Arterial Blood Glucose 215 mg/dL (65-95) H 02/16/21 10:10 Arterial Blood Ionized Calcium 3.7 mg/dL (4.6-5.3) L 02/16/21 10:10 Urine Color Laura (Yellow) 02/13/21 21: Urine Turbidity Turbid (Clear) 02/13/21 21: Urine pH 5.0 (5.0-7.0) 02/13/21 21: Ur Specific [place] 1.025 (1.003-1.030) 02/13/21 21: Urine Protein >500 mg/dL (Negative) 02/13/21 21: Urine Glucose (UA) Neg mg/dL (Negative) 02/13/21 21: Urine Ketones Neg mg/dL (Negative) 02/13/21 21: Urine Blood Lg (Negative) 02/13/21 21: Urine Nitrite Neg (Negative) 02/13/21 21: Urine Bilirubin Neg (Negative) 02/13/21 21: Urine Urobilinogen < 2.0 mg/dL (<2.0) 02/13/21 21: Ur Leukocyte Esterase Neg (Negative) 02/13/21 21: Urine WBC (Auto) 31.0 /HPF (0.0-6.0) H 02/13/21 21: Urine RBC (Auto) 8.0 /HPF (0.0-6.0) 02/13/21 21: U Epithel Cells (Auto) 4.0 /HPF (0-13.0) 02/13/21 21: Urine Bacteria (Auto) 2+ /HPF (Negative) 02/13/21 21: Urine WBC Clumps 3+ /HPF 02/13/21 21: Hyaline Casts 5 /LPF 02/13/21 21: Urine Mucus 2+ /HPF 02/13/21 21: Urine Yeast (Budding) 3+ /HPF 02/13/21 21: Urine Creatinine 80.0 mg/dL (0.1-20.0) H 02/14/21 18:45 Urine Sodium 33 mmol/L 02/14/21 18:45 Salicylates < 0.3 mg/dL (2.8-20.0) L 02/13/21 13:28 Urine Opiates Screen Negative 02/13/21 21:27 Urine Methadone Screen Negative 02/13/21 21:27 Acetaminophen 5.0 ug/mL (10.0-30.0) L 02/13/21 13:28 Ur Barbiturates Screen Negative 02/13/21 21:27 Ur Phencyclidine Scrn Negative 02/13/21 21:27 Ur Amphetamines Screen Negative 02/13/21 21:27 U Benzodiazepines Scrn Negative 02/13/21 21:27 Urine Cocaine Screen Negative 02/13/21 21:27 U Marijuana (THC) Screen Negative 02/13/21 21:27 Drugs of Abuse Note Disclamer 02/13/21 21:27 Plasma/Serum Alcohol < 0.01 % (0-0.07) 02/13/21 13:28 Coronavirus (PCR) Positive (Negative) A 02/14/21 Unknown Blood Type B POSITIVE 02/13/21 13:31 Antibody Screen Negative 02/13/21 13:31 Microbiology: Microbiology 02/13/21 13:48 Peripheral/Venous Blood Culture - Preliminary NO GROWTH AFTER 72 HOURS 02/13/21 13:28 Peripheral/Venous Blood Culture - Preliminary NO GROWTH AFTER 72 HOURS Cho/IV: Voiding Method Indwelling Catheter Active Medications - Current Medications Current Medications: Generic Name Dose Route Start Last Admin Trade Name Freq PRN Reason Stop Dose Admin Acetaminophen 650 mg 02/13/21 15:22 Acetaminophen 325 Mg Tab PO Q6H PRN Pain, Mild (1-3) Acetaminophen 650 mg 02/13/21 15:22 02/13/21 20:30 Acetaminophen 650 Mg Rect Supp IN 650 mg Q6H PRN Administration Pain MILD(1-3)/Fever >100.5/ZACARIAS Albuterol 2.5 mg 02/13/21 15:22 Albuterol 2.5 Mg/3 Ml Nebu IH Q3H PRN Shortness Of Breath Lipase/Protease/Amylase 1 each 02/14/21 10:43 Lipase 10,500/Protease 25,000/Amylase 43,750 (Units) Dr Iqbal FEEDTUBE PRN PRN For Clogged Feeding Tube Ascorbic Acid 500 mg 02/13/21 22:00 02/16/21 09:37 Ascorbic Acid 500 Mg Tab PO 500 mg BID RUDY Administration Cholecalciferol 1,000 unit 02/13/21 16:00 02/16/21 09:37 Cholecalciferol (Vit D3) 1000 Unit (25 Mcg) Tab PO 1,000 unit QDAY RUDY Administration Dextrose 50 ml 02/14/21 11:15 Dextrose 50% In Water (25gm) 50 Ml Syringe IV Q30MIN PRN Hypoglycemia Protocol Famotidine 20 mg 02/14/21 10:00 02/16/21 09:37 Famotidine 20 Mg/2 Ml Inj IV 20 mg DAILY RUDY Administration Fentanyl 50 mcg 02/13/21 16:05 Fentanyl 100 Mcg/2 Ml Inj IV Q10MIN PRN ANALGESIA Heparin Sodium (Porcine) 4,400 unit 02/14/21 13:18 Heparin 10,000 Units/10 Ml Vial 40 unit/kg (4400 unit) IV Q6H PRN Anti-Xa Assay < 0.1 units/ml Hydrophilic Ointment 1 applic 02/13/21 22:52 Lip Therapy Vaseline TP Q2HR PRN Dry Lips Ceftriaxone Sodium 2 gm in 100 mls @ 200 mls/hr 02/13/21 16:00 02/16/21 15:56 Rocephin/Ns 2 Gm/100 Ml IV 02/17/21 16:29 200 mls/hr Q24H RUDY Administration Protocol Azithromycin 500 mg in 250 mls @ 250 mls/hr 02/14/21 15:00 02/16/21 14:45 Zithromax/Ns IV 02/17/21 15:59 250 mls/hr Q24H RUDY Administration Protocol Heparin Sodium/Sodium Chloride 25,000 unit in 500 mls @ 30 mls/hr 02/13/21 17:00 02/16/21 14:58 Heparin/ 0.45% Nacl-25,000 Unit/500 Ml IV 1,250 units/hr TITR RUDY 25 mls/hr Administration Protocol 1,500 UNITS/HR Fentanyl Citrate 2,000 mcg in 100 mls @ 5.55 mls/hr 02/13/21 17:00 02/16/21 15:31 Fentanyl Drip Premix IV 4 mcg/kg/hr TITR RUDY 22.2 mls/hr Administration Protocol 1 MCG/KG/HR Norepinephrine 4 mg in 250 mls @ 75 mls/hr 02/13/21 18:00 02/14/21 01:55 Levophed Drip 4 Mg/Ns 250 Ml IV 0 mcg/min TITR RUDY 0 mls/hr Titration Protocol 20 MCG/MIN Propofol 1,000 mg in 100 mls @ 3.33 mls/hr 02/13/21 23:00 02/16/21 18:47 Diprivan 10 Mg/Ml IV 30 mcg/kg/min TITR RUDY 19.98 mls/hr Titration Protocol 5 MCG/KG/MIN Midazolam HCl 100 mg/ Sodium 100 mls @ 1 mls/hr 02/14/21 09:00 02/16/21 13:15 Chloride IV 5 mg/hr TITR RUDY 5 mls/hr Titration Protocol 1 MG/HR Dopamine HCl/Dextrose 800 mg in 250 mls @ 4.163 mls/hr 02/14/21 09:00 02/16/21 18:47 Intropin Drip 800 Mg/D5w 250 Ml IV 6 mcg/kg/min TITR RUDY 12.488 mls/hr Titration Protocol 2 MCG/KG/MIN Insulin Glargine 15 units 02/16/21 22:00 Insulin Glargine 100 Units/Ml SUB-Q QHS RUDY Insulin Human Regular 0 units 02/14/21 12:00 02/16/21 17:32 Insulin Regular, Human 100 Units/1 Ml SUB-Q 6 units Q6H RUDY Administration Protocol Methylprednisolone Sodium Succinate 40 mg 02/15/21 01:00 02/16/21 16:15 Methylprednisolone Sod Succinate 125 Mg/2 Ml Inj IV 40 mg Q8H RUDY Administration Midazolam HCl 2 mg 02/14/21 08:24 Midazolam 2 Mg/2 Ml Inj IV Q10MIN PRN Sedation Multi-Ingred Cream/Lotion/Oil/Oint 1 applic 02/13/21 16:05 Mineral Oil/Petrolatum, White Ophth Oint 3.5 Gm OU Q4H PRN Dry Eye(s) Senna/Docusate Sodium 1 tab 02/13/21 22:00 02/16/21 09:37 Sennosides/Docusate Sodium 8.6/50 Mg Tab FEEDTUBE 1 tab BID RUDY Administration Simple Syrup 15 ml 02/14/21 10:43 Simple Syrup 15 Ml FEEDTUBE PRN PRN Hypoglycemia Simple Syrup 30 ml 02/14/21 10:43 Simple Syrup 15 Ml FEEDTUBE PRN PRN Hypoglycemia Sodium Bicarbonate 325 mg 02/14/21 10:43 Sodium Bicarbonate 325 Mg Tab FEEDTUBE PRN PRN For Clogged Feeding Tube Sodium Chloride 10 ml 02/13/21 22:00 02/16/21 09:38 Sodium Chloride 0.9% 10 Ml Flush Syringe IV 10 ml BID RUDY Administration Sodium Chloride 10 ml 02/13/21 15:22 Sodium Chloride 0.9% 10 Ml Flush Syringe IV PRN PRN LINE FLUSH Zinc Sulfate 220 mg 02/13/21 22:00 02/16/21 09:37 Zinc Sulfate 220 Mg Cap PO 220 mg BID RUDY Administration Nutrition/Malnutrition Assess - Dietary Evaluation Nutrition/Malnutrition Findings: Nutrition Notes Start: 02/14/21 10:34 Freq: Status: Active Protocol: Document 02/16/21 10:37 (Rec: 02/16/21 10:46 [id number]) Nutrition Notes Initial or Follow up Reassessment Current Diagnosis Acute Kidney Injury, Hypertension,Respiratory Failure Other Pertinent Diagnosis SIRS, pneu, COVID PUI Current Diet Nepro 1.8 at 30 ml/hr Labs/Tests BUN 66 Cr 4 BG 277 Pertinent Medications Dopamine Propofol at 3.33 ml/hr Height 5 ft 6 in Weight 111 kg [place] Body Weight (kg) 59.09 BMI 39.4 Weight Status Morbidly Obese Subjective/Other Information Pt suffered code blue this AM. She is tolerating TF at 20 ml /hr currently. Pt renal function worse and will likely need CASH CLERK, per MD. Percent of energy/protein needs met: 71%/33% Burn Absent Trauma Absent Current % PO Negligible Minimum of two criteria No physical signs of malnutrition #1 Nutrition Diagnosis Inadequate oral intake Diagnosis Progress(for reassessment Continues documentation) Is patient on ventilator? Yes Is Patient Ambulatory and/or Out of Bed No REE-([facility]-confined to bed) 1986.392 Kcal/Kg value to use for calculation 11 Approximate Energy Requirements Using 1221 kcal/Kg Calculation Used for Recommendations Kcal/kg Additional Notes Protein: (>2g/kg IBW) greater than 118g Fluid: 1 ml/kcal or per MD Nutrition Intervention Change Diet Order: continue Nutrition Support: Nepro 1.8 at 30 ml/hr Flush 150 ml q4h or per MD Kcal 1,296 Protein (gm) 58 Fluid (mL) 523 Goal #1 Meet at least 75% of kcal needs and meet protein needs as best as possible via TF Anticipated Discharge Needs: Unable to determine at this time Follow-Up By: 02/18/21 Additional Comments F/u: TF at goal, tolerance and propofol rate <CELINA MASTERSON - Last Filed: 02/16/21 20:12> Assessment and Plan Assessment and plan: Addendum: Patient was coded last night by passenger service agent and ICU staff. Required 1 round of CPR and epinephrine x1. ROSC achieved. Family was notified. Please refer to passenger service agent note for more information. I saw and evaluated the patient. Discussed with the nurse practitioner and agree with their findings and plan as documented in this note. Hospitalist Physical - Constitutional Vitals: Temp Pulse Resp BP Pulse Ox 97.9 F 54 L 28 H 121/70 92 02/16/21 12:00 02/16/21 19:45 02/16/21 19:45 02/16/21 19:45 02/16/21 19:45 HEART Score - HEART Score Troponin: Troponin T 0.033 ng/mL (0.00-0.029) H 02/13/21 18:39 Results - Labs CBC & Chem 7: 02/16/21 13:23 02/16/21 04:30 Labs: Laboratory Last Values WBC 20.3 K/mm3 (4.5-11.0) H 02/16/21 13:23 RBC 6.08 M/mm3 (3.65-5.03) H 02/16/21 13:23 Hgb 15.1 gm/dl (10.1-14.3) H D 02/16/21 13:23 Hct 45.9 % (30.3-42.9) H D 02/16/21 13:23 MCV 75 fl (79-97) L 02/16/21 13:23 MCH 25 pg (28-32) L 02/16/21 13:23 MCHC 33 % (30-34) 02/16/21 13:23 RDW 16.4 % (13.2-15.2) H 02/16/21 13:23 Plt Count 215 K/mm3 (140-440) 02/16/21 13:23 Lymph % (Auto) 5.9 % (13.4-35.0) L 02/13/21 13:28 [place] % (Auto) 4.5 % (0.0-7.3) 02/13/21 13:28 Eos % (Auto) 0.0 % (0.0-4.3) 02/13/21 13:28 Baso % (Auto) 0.3 % (0.0-1.8) 02/13/21 13:28 Lymph # (Auto) 0.3 K/mm3 (1.2-5.4) L 02/13/21 13:28 [place] # (Auto) 0.3 K/mm3 (0.0-0.8) 02/13/21 13:28 Eos # (Auto) 0.0 K/mm3 (0.0-0.4) 02/13/21 13:28 Baso # (Auto) 0.0 K/mm3 (0.0-0.1) 02/13/21 13:28 Seg Neutrophils % 89.3 % (40.0-70.0) H 02/13/21 13:28 Seg Neutrophils # 5.2 K/mm3 (1.8-7.7) 02/13/21 13:28 PT 15.3 Sec. (12.2-14.9) H 02/13/21 16:27 INR 1.16 (0.87-1.13) H 02/13/21 16:27 APTT 27.5 Sec. (24.2-36.6) 02/13/21 16:27 D-Dimer 2846.74 ng/mlDDU (0-234) H 02/16/21 10:31 Heparin Anti-Xa Level 0.42 U.I./ml (0.3-0.7) 02/15/21 20:24 ABG pH 7.330 pH Units (7.350-7.450) L 02/16/21 10:45 POC ABG pCO2 47.3 mmHg (32.0-48.0) 02/16/21 08:00 ABG pCO2 39.8 mm Hg 02/16/21 10:45 POC ABG pO2 30.7 mmHg (83-108) L 02/16/21 10:10 ABG pO2 37.9 mm Hg (80.0-90.0) L* 02/16/21 10:45 POC ABG HCO3 22.3 02/16/21 08:00 ABG HCO3 20.5 mmol/L (20.0-26.0) 02/16/21 10:45 ABG O2 Saturation 64.0 % (95.0-99.0) L 02/16/21 10:45 ABG O2 Content 10.4 (0.0-44) 02/16/21 10:45 POC ABG Base Excess -4.3 02/16/21 08:00 ABG Base Excess -5.0 mmol/L (-2.0-3.0) L 02/16/21 10:45 ABG Hemoglobin 11.8 gm/dl (12.0-16.0) L 02/16/21 10:45 ABG Oxyhemoglobin 50.9 (94-98) L 02/16/21 10:10 ABG Carboxyhemoglobin 1.2 % (0.0-5.0) 02/16/21 10:45 ABG Methemoglobin 0.9 % (0.0-1.5) 02/16/21 10:45 ABG Sodium 136.3 mmol/L (136.0-145.0) 02/16/21 10:10 ABG Potassium 4.6 mmol/L (3.40-4.50) H 02/16/21 10:10 ABG Chloride 103.0 mmol/L (98-107) 02/16/21 10:10 ABG Glucose 215 mg/dL (65-95) H 02/16/21 10:10 Oxyhemoglobin 62.7 % (95.0-99.0) L 02/16/21 10:45 Carboxyhemoglobin 1.1 (0.5-1.5) 02/16/21 10:10 FiO2 100 % 02/16/21 10:45 FiO2 % 100.0 02/16/21 10:10 Sodium 140 mmol/L (137-145) 02/16/21 04:30 Potassium 4.4 mmol/L (3.6-5.0) 02/16/21 04:30 Chloride 100.6 mmol/L (98-107) 02/16/21 04:30 Carbon Dioxide 23 mmol/L (22-30) 02/16/21 04:30 Anion Gap 21 mmol/L 02/16/21 04:30 BUN 66 mg/dL (7-17) H 02/16/21 04:30 Creatinine 4.0 mg/dL (0.6-1.2) H 02/16/21 04:30 Estimated GFR 13 ml/min 02/16/21 04:30 BUN/Creatinine Ratio 17 % 02/16/21 04:30 Glucose 277 mg/dL (65-100) H 02/16/21 04:30 POC Glucose 272 mg/dL (70-105) H 02/16/21 17:24 Lactic Acid 1.90 mmol/L (0.7-2.0) 02/14/21 22:33 Calcium 7.5 mg/dL (8.4-10.2) L 02/16/21 04:30 Magnesium 2.60 mg/dL (1.7-2.3) H 02/13/21 13:28 Ferritin 1164.0 ng/mL (10.0-200.0) H 02/16/21 10:31 Total Bilirubin 0.40 mg/dL (0.1-1.2) 02/13/21 13:28 Direct Bilirubin < 0.2 mg/dL (0-0.2) 02/13/21 13:28 Indirect Bilirubin 0.2 mg/dL 02/13/21 13:28 AST 81 units/L (5-40) H 02/13/21 13:28 ALT 25 units/L (7-56) 02/13/21 13:28 Alkaline Phosphatase 42 units/L (35-129) 02/13/21 13:28 Ammonia 48.0 umol/L (25-60) 02/13/21 13:28 Lactate Dehydrogenase 1678 units/L (91-180) H 02/16/21 10:31 Total Creatine Kinase 1572 units/L (30-135) H 02/13/21 13:28 Troponin T 0.033 ng/mL (0.00-0.029) H 02/13/21 18:39 C-Reactive Protein 33.10 mg/dL (0.00-1.30) H 02/16/21 10:31 NT-Pro-B Natriuret Pep 3473 pg/mL (0-900) H 02/13/21 13:36 Total Protein 8.1 g/dL (6.3-8.2) 02/13/21 13:28 Albumin 3.4 g/dL (3.9-5) L 02/13/21 13:28 Albumin/Globulin Ratio 0.7 % 02/13/21 13:28 Triglycerides 351 mg/dL (2-149) H 02/16/21 04:30 Cholesterol 130 mg/dL (50-199) 02/13/21 16:27 LDL Cholesterol Direct 68 mg/dL (50-130) 02/13/21 16:27 HDL Cholesterol 40 mg/dL (40-59) 02/13/21 16:27 Cholesterol/HDL Ratio 3.25 % 02/13/21 16:27 Lipase 35 units/L (13-60) 02/13/21 13:28 Procalcitonin 58.83 ng/mL (<0.15) 02/14/21 10:40 TSH 8.530 mlU/mL (0.270-4.200) H 02/13/21 13:28 Arterial Blood Glucose 215 mg/dL (65-95) H 02/16/21 10:10 Arterial Blood Ionized Calcium 3.7 mg/dL (4.6-5.3) L 02/16/21 10:10 Urine Color Laura (Yellow) 02/13/21 21: Urine Turbidity Turbid (Clear) 02/13/21 21: Urine pH 5.0 (5.0-7.0) 02/13/21 21: Ur Specific [place] 1.025 (1.003-1.030) 02/13/21 21:27 Urine Protein >500 mg/dL (Negative) 02/13/21 21:27 Urine Glucose (UA) Neg mg/dL (Negative) 02/13/21 21: Urine Ketones Neg mg/dL (Negative) 02/13/21 21:27 Urine Blood Lg (Negative) 02/13/21 21:27 Urine Nitrite Neg (Negative) 02/13/21 21: Urine Bilirubin Neg (Negative) 02/13/21 21: Urine Urobilinogen < 2.0 mg/dL (<2.0) 02/13/21 21:27 Ur Leukocyte Esterase Neg (Negative) 02/13/21 21:27 Urine WBC (Auto) 31.0 /HPF (0.0-6.0) H 02/13/21 21:27 Urine RBC (Auto) 8.0 /HPF (0.0-6.0) 02/13/21 21:27 U Epithel Cells (Auto) 4.0 /HPF (0-13.0) 02/13/21 21:27 Urine Bacteria (Auto) 2+ /HPF (Negative) 02/13/21 21:27 Urine WBC Clumps 3+ /HPF 02/13/21 21:27 Hyaline Casts 5 /LPF 02/13/21 21:27 Urine Mucus 2+ /HPF 02/13/21 21:27 Urine Yeast (Budding) 3+ /HPF 02/13/21 21:27 Urine Creatinine 80.0 mg/dL (0.1-20.0) H 02/14/21 18:45 Urine Sodium 33 mmol/L 02/14/21 18:45 Salicylates < 0.3 mg/dL (2.8-20.0) L 02/13/21 13:28 Urine Opiates Screen Negative 02/13/21 21:27 Urine Methadone Screen Negative 02/13/21 21:27 Acetaminophen 5.0 ug/mL (10.0-30.0) L 02/13/21 13:28 Ur Barbiturates Screen Negative 02/13/21 21:27 Ur Phencyclidine Scrn Negative 02/13/21 21:27 Ur Amphetamines Screen Negative 02/13/21 21:27 U Benzodiazepines Scrn Negative 02/13/21 21:27 Urine Cocaine Screen Negative 02/13/21 21:27 U Marijuana (THC) Screen Negative 02/13/21 21:27 Drugs of Abuse Note Disclamer 02/13/21 21:27 Plasma/Serum Alcohol < 0.01 % (0-0.07) 02/13/21 13:28 Coronavirus (PCR) Positive (Negative) A 02/14/21 Unknown Blood Type B POSITIVE 02/13/21 13:31 Antibody Screen Negative 02/13/21 13:31 Microbiology: Microbiology 02/13/21 13:48 Peripheral/Venous Blood Culture - Preliminary NO GROWTH AFTER 72 HOURS 02/13/21 13:28 Peripheral/Venous Blood Culture - Preliminary NO GROWTH AFTER 72 HOURS Cho/IV: Voiding Method Indwelling Catheter Active Medications - Current Medications Current Medications: Generic Name Dose Route Start Last Admin Trade Name Freq PRN Reason Stop Dose Admin Acetaminophen 650 mg 02/13/21 15:22 Acetaminophen 325 Mg Tab PO Q6H PRN Pain, Mild (1-3) Acetaminophen 650 mg 02/13/21 15:22 02/13/21 20:30 Acetaminophen 650 Mg Rect Supp [place] 650 mg Q6H PRN Administration Pain MILD(1-3)/Fever >100.5/ZACARIAS Albuterol 2.5 mg 02/13/21 15:22 Albuterol 2.5 Mg/3 Ml Nebu IH Q3H PRN Shortness Of Breath Lipase/Protease/Amylase 1 each 02/14/21 10:43 Lipase 10,500/Protease 25,000/Amylase 43,750 (Units) Dr Iqbal FEEDTUBE PRN PRN For Clogged Feeding Tube Ascorbic Acid 500 mg 02/13/21 22:00 02/16/21 09:37 Ascorbic Acid 500 Mg Tab PO 500 mg BID RUDY Administration Cholecalciferol 1,000 unit 02/13/21 16:00 02/16/21 09:37 Cholecalciferol (Vit D3) 1000 Unit (25 Mcg) Tab PO 1,000 unit QDAY RUDY Administration Dextrose 50 ml 02/14/21 11:15 Dextrose 50% In Water (25gm) 50 Ml Syringe IV Q30MIN PRN Hypoglycemia Protocol Famotidine 20 mg 02/14/21 10:00 02/16/21 09:37 Famotidine 20 Mg/2 Ml Inj IV 20 mg DAILY RUDY Administration Fentanyl 50 mcg 02/13/21 16:05 Fentanyl 100 Mcg/2 Ml Inj IV Q10MIN PRN ANALGESIA Heparin Sodium (Porcine) 4,400 unit 02/14/21 13:18 Heparin 10,000 Units/10 Ml Vial 40 unit/kg (4400 unit) IV Q6H PRN Anti-Xa Assay < 0.1 units/ml Hydrophilic Ointment 1 applic 02/13/21 22:52 Lip Therapy Vaseline TP Q2HR PRN Dry Lips Ceftriaxone Sodium 2 gm in 100 mls @ 200 mls/hr 02/13/21 16:00 02/16/21 15:56 Rocephin/Ns 2 Gm/100 Ml IV 02/17/21 16:29 200 mls/hr Q24H RUDY Administration Protocol Azithromycin 500 mg in 250 mls @ 250 mls/hr 02/14/21 15:00 02/16/21 14:45 Zithromax/Ns IV 02/17/21 15:59 250 mls/hr Q24H RUDY Administration Protocol Heparin Sodium/Sodium Chloride 25,000 unit in 500 mls @ 30 mls/hr 02/13/21 17:00 02/16/21 14:58 Heparin/ 0.45% Nacl-25,000 Unit/500 Ml IV 1,250 units/hr TITR RUDY 25 mls/hr Administration Protocol 1,500 UNITS/HR Fentanyl Citrate 2,000 mcg in 100 mls @ 5.55 mls/hr 02/13/21 17:00 02/16/21 15:31 Fentanyl Drip Premix IV 4 mcg/kg/hr TITR RUDY 22.2 mls/hr Administration Protocol 1 MCG/KG/HR Norepinephrine 4 mg in 250 mls @ 75 mls/hr 02/13/21 18:00 02/14/21 01:55 Levophed Drip 4 Mg/Ns 250 Ml IV 0 mcg/min TITR RUDY 0 mls/hr Titration Protocol 20 MCG/MIN Propofol 1,000 mg in 100 mls @ 3.33 mls/hr 02/13/21 23:00 02/16/21 18:47 Diprivan 10 Mg/Ml IV 30 mcg/kg/min TITR RUDY 19.98 mls/hr Titration Protocol 5 MCG/KG/MIN Midazolam HCl 100 mg/ Sodium 100 mls @ 1 mls/hr 02/14/21 09:00 02/16/21 13:15 Chloride IV 5 mg/hr TITR RUDY 5 mls/hr Titration Protocol 1 MG/HR Dopamine HCl/Dextrose 800 mg in 250 mls @ 4.163 mls/hr 02/14/21 09:00 02/16/21 19:27 Intropin Drip 800 Mg/D5w 250 Ml IV 6 mcg/kg/min TITR RUDY 12.488 mls/hr Administration Protocol 2 MCG/KG/MIN Insulin Glargine 15 units 02/16/21 22:00 Insulin Glargine 100 Units/Ml SUB-Q QHS [facility] Insulin Human Regular 0 units 02/14/21 12:00 02/16/21 17:32 Insulin Regular, Human 100 Units/1 Ml SUB-Q 6 units Q6H [facility] Administration Protocol Methylprednisolone Sodium Succinate 40 mg 02/15/21 01:00 02/16/21 16:15 Methylprednisolone Sod Succinate 125 Mg/2 Ml Inj IV 40 mg Q8H [facility] Administration Midazolam HCl 2 mg 02/14/21 08:24 Midazolam 2 Mg/2 Ml Inj IV Q10MIN PRN Sedation Multi-Ingred Cream/Lotion/Oil/Oint 1 applic 02/13/21 16:05 Mineral Oil/Petrolatum, White Ophth Oint 3.5 Gm OU Q4H PRN Dry Eye(s) Senna/Docusate Sodium 1 tab 02/13/21 22:00 02/16/21 09:37 Sennosides/Docusate Sodium 8.6/50 Mg Tab FEEDTUBE 1 tab BID RUDY Administration Simple Syrup 15 ml 02/14/21 10:43 Simple Syrup 15 Ml FEEDTUBE PRN PRN Hypoglycemia Simple Syrup 30 ml 02/14/21 10:43 Simple Syrup 15 Ml FEEDTUBE PRN PRN Hypoglycemia Sodium Bicarbonate 325 mg 02/14/21 10:43 Sodium Bicarbonate 325 Mg Tab FEEDTUBE PRN PRN For Clogged Feeding Tube Sodium Chloride 10 ml 02/13/21 22:00 02/16/21 09:38 Sodium Chloride 0.9% 10 Ml Flush Syringe IV 10 ml BID RUDY Administration Sodium Chloride 10 ml 02/13/21 15:22 Sodium Chloride 0.9% 10 Ml Flush Syringe IV PRN PRN LINE FLUSH Zinc Sulfate 220 mg 02/13/21 22:00 02/16/21 09:37 Zinc Sulfate 220 Mg Cap PO 220 mg BID RUDY Administration Nutrition/Malnutrition Assess - Dietary Evaluation Nutrition/Malnutrition Findings: Nutrition Notes Start: 02/14/21 10:34 Freq: Status: Active Protocol: Document 02/16/21 10:37 (Rec: 02/16/21 10:46 [id number]) Nutrition Notes Initial or Follow up Reassessment Current Diagnosis Acute Kidney Injury, Hypertension,Respiratory Failure Other Pertinent Diagnosis SIRS, pneu, COVID PUI Current Diet Nepro 1.8 at 30 ml/hr Labs/Tests BUN 66 Cr 4 BG 277 Pertinent Medications Dopamine Propofol at 3.33 ml/hr Height 5 ft 6 in Weight 111 kg [place] Body Weight (kg) 59.09 BMI 39.4 Weight Status Morbidly Obese Subjective/Other Information Pt suffered code blue this AM. She is tolerating TF at 20 ml /hr currently. Pt renal function worse and will likely need CASH CLERK, per MD. Percent of energy/protein needs met: 71%/33% Burn Absent Trauma Absent Current % PO Negligible Minimum of two criteria No physical signs of malnutrition #1 Nutrition Diagnosis Inadequate oral intake Diagnosis Progress(for reassessment Continues documentation) Is patient on ventilator? Yes Is Patient Ambulatory and/or Out of Bed No REE-([facility]-confined to bed) 1986.392 Kcal/Kg value to use for calculation 11 Approximate Energy Requirements Using 1221 kcal/Kg Calculation Used for Recommendations Kcal/kg Additional Notes Protein: (>2g/kg IBW) greater than 118g Fluid: 1 ml/kcal or per MD Nutrition Intervention Change Diet Order: continue Nutrition Support: Nepro 1.8 at 30 ml/hr Flush 150 ml q4h or per MD Kcal 1,296 Protein (gm) 58 Fluid (mL) 523 Goal #1 Meet at least 75% of kcal needs and meet protein needs as best as possible via TF Anticipated Discharge Needs: Unable to determine at this time Follow-Up By: 02/18/21 Additional Comments F/u: TF at goal, tolerance and propofol rate
--- NOTE | 2021-02-16 20:02 | XRay Report ---
CHEST 1 VIEW 6:43 PM INDICATION: line placement. COMPARISON: Earlier today FINDINGS: Support devices: The left IJ catheter tip projects over the right right atrium more cephalad IVC. End otracheal tube, nasogastric tube, and right IJ catheter are in satisfactory position. Heart: Stable. Lungs/Pleura: Bilateral pulmonary opacities and small effusions are stable. No pneumothorax is seen. IMPRESSION: 1. Left IJ catheter tip projects over the right atrium more cephalad IVC, this should be pulled back approximately 8-10 cm. No pneumothorax. Signer Name: Zacarias Ballard MD Signed: 02/16/2021 7:58 PM Workstation Name: [id number]
[2021-02-16] MEDS ORDERED: INSULIN GLARGINE 100 UNITS/ML SUB-Q SCH (22:00)
[2021-02-17] MEDS: methylPREDNISolone Sod Succinate 125 MG/2 ML INJ IV SCH ×3 (00:18→17:38)
[2021-02-17] MEDS: INSULIN REGULAR, HUMAN 100 UNITS/1 ML SUB-Q SCH ×5 (00:19→23:35)
[2021-02-17] MEDS: MIDAZOLAM 100 MG in SODIUM CHLORIDE 0.9% 80 ML IV SCH ×2 (01:32→21:30)
[2021-02-17] MEDS: fentaNYL DRIP Premix 2,000 MCG/100 ML BAG IV SCH ×4 (04:27→20:30)
[2021-02-17 04:41] LABS: Hematocrit 28.4 % (30.3-42.9); Hemoglobin 9.2 gm/dl (10.1-14.3); Mean Corpuscular HGB Conc 33 % (30-34); Mean Corpuscular Volume 76 fl (79-97); Platelet Count 253 K/mm3 (140-440); Red Blood Count 3.74 M/mm3 (3.65-5.03); Red Cell Distribution Width 15.9 % (13.2-15.2)
[2021-02-17 05:02] LABS: Calcium 6.3 mg/dL (8.4-10.2)
--- NOTE | 2021-02-17 09:42 | XRay Report ---
. XR chest 1V ap INDICATION / CLINICAL INFORMATION: follow up respiratory failure. COMPARISON: 02/16/2021 FINDINGS: SUPPORT DEVICES: Unchanged. HEART /PULMONARY VASCULATURE: Unchanged. LUNGS / PLEURA: Lung parenchyma is not significantly changed. No pneumothorax. IMPRESSION: 1. No significant interval change. Signer Name: Srinivas Hernandez MD Signed: 02/17/2021 9:37 AM Workstation Name: [id number]
[2021-02-17] MEDS: FAMOTIDINE 20 MG/2 ML INJ IV SCH (09:54)
[2021-02-17] MEDS: ASCORBIC ACID 500 MG TAB PO SCH ×2 (09:55→23:18)
[2021-02-17] MEDS: ZINC SULFATE 220 MG CAP PO SCH ×2 (09:55→23:18)
[2021-02-17] MEDS: CHOLECALCIFEROL (VIT D3) 1000 UNIT (25 mcg) TAB PO SCH (09:55)
[2021-02-17] MEDS ORDERED: POTASSIUM CHLORIDE 20 MEQ PACKET FEEDTUBE ONE (10:00)
[2021-02-17] MEDS: SENNOSIDES/DOCUSATE SODIUM 8.6/50 MG TAB FEEDTUBE SCH ×2 (10:01→23:18)
--- NOTE | 2021-02-17 10:52 | Progress Note ---
Assessment and Plan Impression: * SONIA/ATN * COvid PNA * Acute hypoxic resp failure * Sepsis * cardiac arrest * hyperkalemia * Metabolic acidosis Plan: * daily lytes noted, worsening cr * cardiac arrest noted, worsening atn * add albumin for bp support, CRRT is not availabe, cont vasopressors prn, bp low this am, k controlled, needs resuscitation, will be difficult to tolerated HD with low bps and hemodynamic instability * likely will require CREDIT AND COLLECTION MANAGER if hemodynamically stable, s/p vasc cath placement, likely will need dialysis next 24 to 36hrs if no significant improvement * sonia due to atn from COvid, high risk for progression * strict i/os * avoid nephrotoxins * Keep MAP>65, vasopressors prn * no emergent indicaion for CREDIT AND COLLECTION MANAGER today * sepsis protocol * spoke with patients daughter, Carolin Tinoco, explained risk and benefits of hemodialysis, agrees to proceed with renal replacement therapy Subjective Date of service: 02/17/21 Principal diagnosis: AHRF; ARDS; Pneumonia; PUI COVID-19; OHS; SONIA; Hyperkalemia; AMS Interval history: events noted, labs reviewed Objective - Exam Narrative Exam: GENERAL: Morbidly obese female. Unresponsive and obtunded HEAD: Normocephalic. No obvious signs of trauma. ENT: Dry mucous membranes. Bag valve mask applied EYES: Pupils are constricted bilaterally but remain reactive. NECK: Trachea is midline. LUNGS: Bilateral breath sounds with [id number] ventilation. There are scattered rales throughout. CARDIOVASCULAR: Regular rate and rhythm. 3/6 systolic murmur VASCULAR: Cap refill < 2 seconds ABDOMEN: Abdomen is soft and nondistended. There is central adiposity SKIN: Skin is warm and dry NEURO: Patient is obtunded and unresponsive even to pain. GCS is 3 MUSCULOSKELETAL: No obvious deformities. - Vital Signs Vital signs: Vital Signs - 12hr 02/16/21 02/16/21 02/16/21 23:00 23:15 23:30 Temperature Pulse Rate 54 L 52 L 53 L Pulse Rate [ From Monitor] Respiratory 28 H 28 H 29 H Rate Blood Pressure 134/74 131/73 133/75 O2 Sat by Pulse 94 94 94 Oximetry 02/16/21 02/17/21 02/17/21 23:45 00:00 00:15 Temperature 96.8 F L Pulse Rate 52 L 54 L 52 L Pulse Rate [ From Monitor] Respiratory 29 H 28 H 28 H Rate Blood Pressure 133/74 130/72 135/73 O2 Sat by Pulse 94 93 94 Oximetry 02/17/21 02/17/21 02/17/21 00:28 00:30 00:45 Temperature Pulse Rate 52 L 52 L 54 L Pulse Rate [ From Monitor] Respiratory 28 H 28 H Rate Blood Pressure 135/73 130/73 114/67 O2 Sat by Pulse 95 95 94 Oximetry 02/17/21 02/17/21 02/17/21 01:00 01:15 01:30 Temperature Pulse Rate 55 L 54 L 53 L Pulse Rate [ From Monitor] Respiratory 28 H 28 H 28 H Rate Blood Pressure 108/66 110/63 111/64 O2 Sat by Pulse 93 93 93 Oximetry 02/17/21 02/17/21 02/17/21 01:45 02:00 02:15 Temperature Pulse Rate 53 L 51 L 51 L Pulse Rate [ From Monitor] Respiratory 29 H 28 H 28 H Rate Blood Pressure 108/63 112/66 113/67 O2 Sat by Pulse 93 93 93 Oximetry 02/17/21 02/17/21 02/17/21 02:30 02:45 03:00 Temperature Pulse Rate 52 L 50 L 52 L Pulse Rate [ From Monitor] Respiratory 28 H 23 28 H Rate Blood Pressure 114/68 109/68 114/72 O2 Sat by Pulse 94 94 92 Oximetry 02/17/21 02/17/21 02/17/21 03:15 03:30 03:45 Temperature Pulse Rate 52 L 52 L 52 L Pulse Rate [ From Monitor] Respiratory 28 H 28 H 28 H Rate Blood Pressure 117/68 113/70 117/69 O2 Sat by Pulse 94 94 93 Oximetry 02/17/21 02/17/21 02/17/21 04:00 04:15 04:30 Temperature 97.5 F L Pulse Rate 52 L 53 L 51 L Pulse Rate [ From Monitor] Respiratory 28 H 28 H 29 H Rate Blood Pressure 116/70 111/69 113/68 O2 Sat by Pulse 92 94 94 Oximetry 02/17/21 02/17/21 02/17/21 04:45 05:00 05:06 Temperature Pulse Rate 50 L 50 L 50 L Pulse Rate [ From Monitor] Respiratory 28 H 28 H Rate Blood Pressure 110/67 110/67 114/68 O2 Sat by Pulse 91 92 92 Oximetry 02/17/21 02/17/21 02/17/21 05:16 05:30 05:45 Temperature Pulse Rate 39 L 51 L 50 L Pulse Rate [ From Monitor] Respiratory 12 28 H 28 H Rate Blood Pressure 96/45 91/51 95/54 O2 Sat by Pulse 88 92 Oximetry 02/17/21 02/17/21 02/17/21 06:00 06:15 06:30 Temperature Pulse Rate 51 L 51 L 53 L Pulse Rate [ From Monitor] Respiratory 28 H 28 H 28 H Rate Blood Pressure 96/55 95/59 97/58 O2 Sat by Pulse 92 93 92 Oximetry 02/17/21 02/17/21 02/17/21 06:45 07:00 07:15 Temperature Pulse Rate 53 L 53 L 52 L Pulse Rate [ From Monitor] Respiratory 28 H 28 H 28 H Rate Blood Pressure 98/56 97/60 95/61 O2 Sat by Pulse 93 93 92 Oximetry 02/17/21 02/17/21 02/17/21 07:30 07:38 07:45 Temperature Pulse Rate 51 L 51 L 52 L Pulse Rate [ From Monitor] Respiratory 28 H 28 H Rate Blood Pressure 96/59 96/55 95/59 O2 Sat by Pulse 92 92 91 Oximetry 02/17/21 02/17/21 02/17/21 08:00 08:01 08:15 Temperature 97.7 F Pulse Rate 54 L 53 L Pulse Rate [ 54 L From Monitor] Respiratory 28 H 28 H Rate Blood Pressure 95/59 92/55 O2 Sat by Pulse 91 90 Oximetry 02/17/21 02/17/21 02/17/21 08:30 08:45 09:00 Temperature Pulse Rate 57 L 55 L 55 L Pulse Rate [ From Monitor] Respiratory 28 H 28 H 28 H Rate Blood Pressure 87/54 89/52 95/54 O2 Sat by Pulse 87 89 90 Oximetry 02/17/21 02/17/21 02/17/21 09:15 09:30 09:45 Temperature Pulse Rate 55 L 55 L 57 L Pulse Rate [ From Monitor] Respiratory 29 H 28 H 28 H Rate Blood Pressure 89/52 91/55 88/56 O2 Sat by Pulse 89 90 90 Oximetry 02/17/21 02/17/21 02/17/21 10:00 10:15 10:30 Temperature Pulse Rate 76 53 L 55 L Pulse Rate [ From Monitor] Respiratory 28 H 28 H 28 H Rate Blood Pressure 81/48 107/68 99/62 O2 Sat by Pulse 77 L 90 88 Oximetry - Lab 02/17/21 04:30 02/17/21 04:30 Most recent lab results ABG pH 7.435 (7.320-7.450) 02/17/21 04:00 ABG pCO2 39.8 mm Hg 02/16/21 10:45 ABG pO2 37.9 mm Hg (80.0-90.0) L* 02/16/21 10:45 ABG HCO3 20.5 mmol/L (20.0-26.0) 02/16/21 10:45 ABG O2 Saturation 90.5 (0-100) 02/17/21 04:00 Calcium 6.3 mg/dL (8.4-10.2) L D 02/17/21 04:30 Phosphorus 3.40 mg/dL (2.5-4.5) 02/17/21 04:30 Magnesium 2.40 mg/dL (1.7-2.3) H 02/17/21 04:30 Urine Creatinine 80.0 mg/dL (0.1-20.0) H 02/14/21 18:45 Urine Sodium 33 mmol/L 02/14/21 18:45 Medications & Allergies - Medications Allergies/Adverse Reactions: Allergies Penicillins Adverse Reaction (Verified 02/13/21 15:39) Unknown Home Medications: Home Medications Medication Instructions Recorded Confirmed Last Taken Type Insulin NPH Hum/Reg Insulin Hm See Protocol SQ DAILY 02/13/21 02/13/21 Unknown History [Novolin 70-30 100 Unit/ml Vial] metFORMIN [Glucophage] 500 mg PO TID 02/13/21 02/13/21 Unknown History Active Medications: Generic Name Dose Route Start Last Admin Trade Name Freq PRN Reason Stop Dose Admin Acetaminophen 650 mg 02/13/21 15:22 Acetaminophen 325 Mg Tab PO Q6H PRN Pain, Mild (1-3) Acetaminophen 650 mg 02/13/21 15:22 02/13/21 20:30 Acetaminophen 650 Mg Rect Supp [place] 650 mg Q6H PRN Administration Pain MILD(1-3)/Fever >100.5/ZACARIAS Albumin Human 25 gm 02/17/21 14:00 Albumin Human 25% (25 Gm/100 Ml) Inj IV 02/19/21 06:01 Q8HR RUDY Albuterol 2.5 mg 02/13/21 15:22 Albuterol 2.5 Mg/3 Ml Nebu IH Q3H PRN Shortness Of Breath Lipase/Protease/Amylase 1 each 02/14/21 10:43 Lipase 10,500/Protease 25,000/Amylase 43,750 (Units) Dr Iqbal FEEDTUBE PRN PRN For Clogged Feeding Tube Ascorbic Acid 500 mg 02/13/21 22:00 02/17/21 09:55 Ascorbic Acid 500 Mg Tab PO 500 mg BID RUDY Administration Cholecalciferol 1,000 unit 02/13/21 16:00 02/17/21 09:55 Cholecalciferol (Vit D3) 1000 Unit (25 Mcg) Tab PO 1,000 unit QDAY RUDY Administration Dextrose 50 ml 02/14/21 11:15 Dextrose 50% In Water (25gm) 50 Ml Syringe IV Q30MIN PRN Hypoglycemia Protocol Famotidine 20 mg 02/14/21 10:00 02/17/21 09:54 Famotidine 20 Mg/2 Ml Inj IV 20 mg DAILY RUDY Administration Fentanyl 50 mcg 02/13/21 16:05 Fentanyl 100 Mcg/2 Ml Inj IV Q10MIN PRN ANALGESIA Heparin Sodium (Porcine) 4,400 unit 02/14/21 13:18 Heparin 10,000 Units/10 Ml Vial 40 unit/kg (4400 unit) IV Q6H PRN Anti-Xa Assay < 0.1 units/ml Hydrophilic Ointment 1 applic 02/13/21 22:52 Lip Therapy Vaseline TP Q2HR PRN Dry Lips Ceftriaxone Sodium 2 gm in 100 mls @ 200 mls/hr 02/13/21 16:00 02/16/21 15:56 Rocephin/Ns 2 Gm/100 Ml IV 02/17/21 16:29 200 mls/hr Q24H RUDY Administration Protocol Azithromycin 500 mg in 250 mls @ 250 mls/hr 02/14/21 15:00 02/16/21 14:45 Zithromax/Ns IV 02/17/21 15:59 250 mls/hr Q24H RUDY Administration Protocol Heparin Sodium/Sodium Chloride 25,000 unit in 500 mls @ 30 mls/hr 02/13/21 17:00 02/17/21 00:31 Heparin/ 0.45% Nacl-25,000 Unit/500 Ml IV 1,050 units/hr TITR RUDY 21 mls/hr Titration Protocol 1,500 UNITS/HR Fentanyl Citrate 2,000 mcg in 100 mls @ 5.55 mls/hr 02/13/21 17:00 02/17/21 09:54 Fentanyl Drip Premix IV 4 mcg/kg/hr TITR RUDY 22.2 mls/hr Administration Protocol 1 MCG/KG/HR Norepinephrine 4 mg in 250 mls @ 75 mls/hr 02/13/21 18:00 02/14/21 01:55 Levophed Drip 4 Mg/Ns 250 Ml IV 0 mcg/min TITR RUDY 0 mls/hr Titration Protocol 20 MCG/MIN Propofol 1,000 mg in 100 mls @ 3.33 mls/hr 02/13/21 23:00 02/17/21 09:54 Diprivan 10 Mg/Ml IV 30 mcg/kg/min TITR RUDY 19.98 mls/hr Administration Protocol 5 MCG/KG/MIN Midazolam HCl 100 mg/ Sodium 100 mls @ 1 mls/hr 02/14/21 09:00 02/17/21 01:32 Chloride IV 5 mg/hr TITR RUDY 5 mls/hr Administration Protocol 1 MG/HR Dopamine HCl/Dextrose 800 mg in 250 mls @ 4.163 mls/hr 02/14/21 09:00 02/17/21 00:51 Intropin Drip 800 Mg/D5w 250 Ml IV 4 mcg/kg/min TITR RUDY 8.325 mls/hr Titration Protocol 2 MCG/KG/MIN Insulin Glargine 20 units 02/17/21 22:00 Insulin Glargine 100 Units/Ml SUB-Q QHS [facility] Insulin Human Regular 0 units 02/14/21 12:00 02/17/21 06:02 Insulin Regular, Human 100 Units/1 Ml SUB-Q 4 units Q6H [facility] Administration Protocol Methylprednisolone Sodium Succinate 40 mg 02/15/21 01:00 02/17/21 09:55 Methylprednisolone Sod Succinate 125 Mg/2 Ml Inj IV 40 mg Q8H [facility] Administration Midazolam HCl 2 mg 02/14/21 08:24 Midazolam 2 Mg/2 Ml Inj IV Q10MIN PRN Sedation Multi-Ingred Cream/Lotion/Oil/Oint 1 applic 02/13/21 16:05 Mineral Oil/Petrolatum, White Ophth Oint 3.5 Gm OU Q4H PRN Dry Eye(s) Senna/Docusate Sodium 1 tab 02/13/21 22:00 02/16/21 22:45 Sennosides/Docusate Sodium 8.6/50 Mg Tab FEEDTUBE Not Given BID RUDY Simple Syrup 15 ml 02/14/21 10:43 Simple Syrup 15 Ml FEEDTUBE PRN PRN Hypoglycemia Simple Syrup 30 ml 02/14/21 10:43 Simple Syrup 15 Ml FEEDTUBE PRN PRN Hypoglycemia Sodium Bicarbonate 325 mg 02/14/21 10:43 Sodium Bicarbonate 325 Mg Tab FEEDTUBE PRN PRN For Clogged Feeding Tube Sodium Chloride 10 ml 02/13/21 22:00 02/17/21 09:55 Sodium Chloride 0.9% 10 Ml Flush Syringe IV 10 ml BID RUDY Administration Sodium Chloride 10 ml 02/13/21 15:22 Sodium Chloride 0.9% 10 Ml Flush Syringe IV PRN PRN LINE FLUSH Zinc Sulfate 220 mg 02/13/21 22:00 02/17/21 09:55 Zinc Sulfate 220 Mg Cap PO 220 mg BID RUYD Administration
--- NOTE | 2021-02-17 10:59 | Progress Note ---
Assessment and Plan Cultures: SARS CoV2 PCR: positive 02/13/2021 blood culture: no growth 02/13/2021 tracheal aspirate culture: Usual respiratory shivani Urine culture: no growth A/P: 70-year-old female with obesity hypoventilation syndrome, hypertension, hypothyroidism admitted to the hospital after she was found unresponsive: #PEA arrest: CODE BLUE 02/16/2021. #Septic shock: Secondary to below. #Bilateral pneumonia secondary to COVID-19. Severe disease. #Acute hypoxic respiratory failure: Secondary to COVID-19. On the vent. #SONIA: Renally adjust antibiotics. #Mild transaminitis: Likely from sepsis. #Possible UTI: culture with no growth. Recs: -Continue steroids -Continue empiric antibiotics: Ceftriaxone, azithromycin x 5 days -Given progressive renal failure, not a candidate for Remdesivir -Procalcitonin significantly elevated, not an Actemra candidate -extremely poor prognosis Andra Sol MD, FACP [facility] ([facility]) O: [phone] F: [phone] Subjective Date of service: 02/17/21 Principal diagnosis: AHRF; ARDS; Pneumonia; PUI COVID-19; OHS; SONIA; Hyperkalemia; AMS Interval history: No fever. Remains on the vent, 100% FiO2, 20 of PEEP. On heparin drip, on steroids. Remains off pressors. Objective - Exam Narrative Exam: Physical Exam (reviewed in chart to minimize risk of transmission) Constitutional: deferred Head, Ears, Nose: deferred Eyes: deferred Neck: deferred Oral: deferred Cardiovascular: deferred Respiratory: deferred GI: deferred Musculoskeletal: deferred Skin: deferred Hem/Lymphatic: deferred Psych: deferred Neurological: deferred - Constitutional Vitals: Vital Signs Temp Pulse Resp BP Pulse Ox 97.7 F 55 L 28 H 99/62 88 02/17/21 08:01 02/17/21 10:30 02/17/21 10:30 02/17/21 10:30 02/17/21 10:30 Temperature -Last 24 Hours Temperature 97.7 F Temperature 97.5 F Temperature 96.8 F Temperature 97.7 F Temperature 97.9 F - Labs CBC & Chem 7: 02/17/21 04:30 02/17/21 04:30 Labs: Abnormal lab results 02/16/21 02/16/21 02/16/21 Range/Units 10:31 10:31 10:31 WBC (4.5-11.0) K/mm3 RBC (3.65-5.03) M/mm3 Hgb (10.1-14.3) gm/dl Hct (30.3-42.9) % MCV (79-97) fl MCH (28-32) pg RDW (13.2-15.2) % D-Dimer 2846.74 H (0-234) ng/mlDDU Heparin Anti-Xa Level (0.3-0.7) U.I./ml ABG pH (7.350-7.450) pH Units POC ABG pCO2 (32.0-48.0) mmHg POC ABG pO2 (83-108) mmHg ABG pO2 (80.0-90.0) mm Hg ABG O2 Saturation (95.0-99.0) % ABG Base Excess (-2.0-3.0) mmol/L ABG Hemoglobin (12.0-16.0) gm/dl ABG Oxyhemoglobin (94-98) ABG Sodium (136.0-145.0) mmol/L ABG Potassium (3.40-4.50) mmol/L ABG Glucose (65-95) mg/dL Oxyhemoglobin (95.0-99.0) % Carboxyhemoglobin (0.5-1.5) Potassium (3.6-5.0) mmol/L Carbon Dioxide (22-30) mmol/L BUN (7-17) mg/dL Creatinine (0.6-1.2) mg/dL Glucose (65-100) mg/dL POC Glucose (70-105) mg/dL Calcium (8.4-10.2) mg/dL Magnesium (1.7-2.3) mg/dL Ferritin 1164.0 H (10.0-200.0) ng/mL Lactate Dehydrogenase 1678 H (91-180) units/L C-Reactive Protein 33.10 H (0.00-1.30) mg/dL Arterial Blood Glucose (65-95) mg/dL Arterial Blood Ionized Calcium (4.6-5.3) mg/dL 02/16/21 02/16/21 02/16/21 Range/Units 10:45 12:06 13:23 WBC 20.3 H (4.5-11.0) K/mm3 RBC 6.08 H (3.65-5.03) M/mm3 Hgb 15.1 H D (10.1-14.3) gm/dl Hct 45.9 H D (30.3-42.9) % MCV 75 L (79-97) fl MCH 25 L (28-32) pg RDW 16.4 H (13.2-15.2) % D-Dimer (0-234) ng/mlDDU Heparin Anti-Xa Level (0.3-0.7) U.I./ml ABG pH 7.330 L (7.350-7.450) pH Units POC ABG pCO2 (32.0-48.0) mmHg POC ABG pO2 (83-108) mmHg ABG pO2 37.9 L* (80.0-90.0) mm Hg ABG O2 Saturation 64.0 L (95.0-99.0) % ABG Base Excess -5.0 L (-2.0-3.0) mmol/L ABG Hemoglobin 11.8 L (12.0-16.0) gm/dl ABG Oxyhemoglobin (94-98) ABG Sodium (136.0-145.0) mmol/L ABG Potassium (3.40-4.50) mmol/L ABG Glucose (65-95) mg/dL Oxyhemoglobin 62.7 L (95.0-99.0) % Carboxyhemoglobin (0.5-1.5) Potassium (3.6-5.0) mmol/L Carbon Dioxide (22-30) mmol/L BUN (7-17) mg/dL Creatinine (0.6-1.2) mg/dL Glucose (65-100) mg/dL POC Glucose 223 H (70-105) mg/dL Calcium (8.4-10.2) mg/dL Magnesium (1.7-2.3) mg/dL Ferritin (10.0-200.0) ng/mL Lactate Dehydrogenase (91-180) units/L C-Reactive Protein (0.00-1.30) mg/dL Arterial Blood Glucose (65-95) mg/dL Arterial Blood Ionized Calcium (4.6-5.3) mg/dL 02/16/21 02/16/21 02/16/21 Range/Units 17:24 20:08 23:57 WBC (4.5-11.0) K/mm3 RBC (3.65-5.03) M/mm3 Hgb (10.1-14.3) gm/dl Hct (30.3-42.9) % MCV (79-97) fl MCH (28-32) pg RDW (13.2-15.2) % D-Dimer (0-234) ng/mlDDU Heparin Anti-Xa Level 1.06 H (0.3-0.7) U.I./ml ABG pH (7.350-7.450) pH Units POC ABG pCO2 (32.0-48.0) mmHg POC ABG pO2 (83-108) mmHg ABG pO2 (80.0-90.0) mm Hg ABG O2 Saturation (95.0-99.0) % ABG Base Excess (-2.0-3.0) mmol/L ABG Hemoglobin (12.0-16.0) gm/dl ABG Oxyhemoglobin (94-98) ABG Sodium (136.0-145.0) mmol/L ABG Potassium (3.40-4.50) mmol/L ABG Glucose (65-95) mg/dL Oxyhemoglobin (95.0-99.0) % Carboxyhemoglobin (0.5-1.5) Potassium (3.6-5.0) mmol/L Carbon Dioxide (22-30) mmol/L BUN (7-17) mg/dL Creatinine (0.6-1.2) mg/dL Glucose (65-100) mg/dL POC Glucose 272 H 245 H (70-105) mg/dL Calcium (8.4-10.2) mg/dL Magnesium (1.7-2.3) mg/dL Ferritin (10.0-200.0) ng/mL Lactate Dehydrogenase (91-180) units/L C-Reactive Protein (0.00-1.30) mg/dL Arterial Blood Glucose (65-95) mg/dL Arterial Blood Ionized Calcium (4.6-5.3) mg/dL 08/26/21 08/26/21 08/26/21 Range/Units 04:00 04:30 04:30 WBC 12.5 H (4.5-11.0) K/mm3 RBC (3.65-5.03) M/mm3 Hgb 9.2 L D (10.1-14.3) gm/dl Hct 28.4 L D (30.3-42.9) % MCV 76 L (79-97) fl MCH 25 L (28-32) pg RDW 15.9 H (13.2-15.2) % D-Dimer (0-234) ng/mlDDU Heparin Anti-Xa Level (0.3-0.7) U.I./ml ABG pH (7.350-7.450) pH Units POC ABG pCO2 28.7 L (32.0-48.0) mmHg POC ABG pO2 59.0 L (83-108) mmHg ABG pO2 (80.0-90.0) mm Hg ABG O2 Saturation (95.0-99.0) % ABG Base Excess (-2.0-3.0) mmol/L ABG Hemoglobin 10.2 L (12.0-16.0) gm/dl ABG Oxyhemoglobin 90.3 L (94-98) ABG Sodium 134.8 L (136.0-145.0) mmol/L ABG Potassium 3.3 L (3.40-4.50) mmol/L ABG Glucose 280 H (65-95) mg/dL Oxyhemoglobin (95.0-99.0) % Carboxyhemoglobin 0.1 L (0.5-1.5) Potassium 3.4 L D (3.6-5.0) mmol/L Carbon Dioxide 20 L (22-30) mmol/L BUN 81 H (7-17) mg/dL Creatinine 5.1 H (0.6-1.2) mg/dL Glucose 260 H (65-100) mg/dL POC Glucose (70-105) mg/dL Calcium 6.3 L D (8.4-10.2) mg/dL Magnesium (1.7-2.3) mg/dL Ferritin (10.0-200.0) ng/mL Lactate Dehydrogenase (91-180) units/L C-Reactive Protein (0.00-1.30) mg/dL Arterial Blood Glucose 280 H (65-95) mg/dL Arterial Blood Ionized Calcium 3.5 L (4.6-5.3) mg/dL 02/17/21 02/17/21 Range/Units 04:30 05:48 WBC (4.5-11.0) K/mm3 RBC (3.65-5.03) M/mm3 Hgb (10.1-14.3) gm/dl Hct (30.3-42.9) % MCV (79-97) fl MCH (28-32) pg RDW (13.2-15.2) % D-Dimer (0-234) ng/mlDDU Heparin Anti-Xa Level (0.3-0.7) U.I./ml ABG pH (7.350-7.450) pH Units POC ABG pCO2 (32.0-48.0) mmHg POC ABG pO2 (83-108) mmHg ABG pO2 (80.0-90.0) mm Hg ABG O2 Saturation (95.0-99.0) % ABG Base Excess (-2.0-3.0) mmol/L ABG Hemoglobin (12.0-16.0) gm/dl ABG Oxyhemoglobin (94-98) ABG Sodium (136.0-145.0) mmol/L ABG Potassium (3.40-4.50) mmol/L ABG Glucose (65-95) mg/dL Oxyhemoglobin (95.0-99.0) % Carboxyhemoglobin (0.5-1.5) Potassium (3.6-5.0) mmol/L Carbon Dioxide (22-30) mmol/L BUN (7-17) mg/dL Creatinine (0.6-1.2) mg/dL Glucose (65-100) mg/dL POC Glucose 237 H (70-105) mg/dL Calcium (8.4-10.2) mg/dL Magnesium 2.40 H (1.7-2.3) mg/dL Ferritin (10.0-200.0) ng/mL Lactate Dehydrogenase (91-180) units/L C-Reactive Protein (0.00-1.30) mg/dL Arterial Blood Glucose (65-95) mg/dL Arterial Blood Ionized Calcium (4.6-5.3) mg/dL
[2021-02-17] MEDS ORDERED: ALBUMIN HUMAN 25% (25 GM/100 ML) INJ IV PRN (11:14)
[2021-02-17] MEDS ORDERED: EPOETIN ALFA-EPBX 10,000 UNIT/1 ML VIAL IV PRN (11:14)
[2021-02-17] MEDS ORDERED: SODIUM CHLORIDE 0.9% 100 ML IV PRN (11:14)
--- NOTE | 2021-02-17 13:08 | XRay Report ---
XR chest 1V ap INDICATION / CLINICAL INFORMATION: hypoxia. COMPARISON: 02/17/2021 at 8:15 AM FINDINGS: SUPPORT DEVICES: Unchanged. HEART /PULMONARY VASCULATURE: Unchanged. LUNGS / PLEURA: Lung parenchyma is not significantly changed. New small to moderate right pneumothor ax. IMPRESSION: New small to moderate right pneumothorax. Signer Name: Srinivas Hernandez MD Signed: 02/17/2021 1:03 PM Workstation Name: [id number]
[2021-02-17] MEDS: ALBUMIN HUMAN 25% (25 GM/100 ML) INJ IV SCH ×2 (13:09→23:17)
--- NOTE | 2021-02-17 13:23 | Progress Note ---
Assessment and Plan Acute hypoxemic respiratory failure Acute respiratory distress syndrome Bilateral pneumonia PUI COVID-19 Obesity hypoventilation syndrome Acute kidney injuryElevated serum inflammatory markers to include D-dimers, ferritin, LDH, CRP Hyperkalemia Lactic acidosis Probable rhabdomyolysis Acute encephalopathy - right chest tube placed - s/p Vascath placement - HD/UF per nephrology prescription - wean vasopressors for target MAP > 65 mmHg and dopamine for target HR > 55- 60/min - continue care as below otherwise; - nephrology evaluation ongoing - continue to wean supplemental oxygen for target O2 sat's > 92% acutely - aspiration precautions - continue bronchodilators with pulmonary hygiene per RT - avoid nephrotoxins, renally dose all medications - continue to avoid benzodiazepine's, reduce the possibility of delirium - complete AB's per ID rec's - prn analgesia per pain score - Maintenance of sleep-wake cycle, avoid delirium - G.I. & VTE prophylaxis - PT/OT/ROM exercises - continue mobility protocols for pressure ulcer prophylaxis - Monitor hemodynamics closely - continue other care per attending / other consultants - discharge planning ongoing concurrently COVID SPECIFIC INTERVENTIONS - Remdesivir as per ID/Pulmonary developed protocols (not a candidate re: SONIA) - continue systemic steroids for severe COVID-19 infection (Solumedrol) - follow repeat COVID tests results - zinc and vitamin C supplementation - Monitor inflammatory markers per facility protocol - ferritin, Ddimer, CRP - therapeutic anticoagulation per system Protocol based on d-dimer and clinical considerations (IV Heparin drip) - Continue contact and airborne isolation .... Re-evaluate in am & prn CONDITION: CRITICAL PROGNOSIS: GUARDED CODE STATUS: FULL CODE The high probability of a clinically significant, sudden or life-threatening deterioration of the [respiratory, cardiovascular & neurologic] system(s) required my full and direct attention, intervention and personal management. The aggregate critical care time was [32] minutes without overlap. Time includes spent on; [x] Data Review and interpretation [x] Patient assessment and monitoring of vital signs [x] Documentation [x] Medication orders and management Subjective Date of service: 02/17/21 Principal diagnosis: AHRF; ARDS; Pneumonia; PUI COVID-19; OHS; SONIA; Hyperkalemia; AMS Interval history: Patient is seen today for: Acute hypoxemic respiratory failure; ARDS; Pneumonia; PUI COVID-19; OHS; SONIA; Hyperkalemia; Rhabdomyolysis; Acute encephalopathy Seen and examined at bedside; 24hour events reviewed; nursing and respiratory care staff consulted; no adverse overnight events reported to me; resting in bed; remains on MVS; now with right pneumothorax; remains on dopamine drip @ 8 mics/min re: bradycardia Objective Vital Signs - 12hr 02/17/21 02/17/21 02/17/21 01:30 01:45 02:00 Temperature Pulse Rate 53 L 53 L 51 L Pulse Rate [ From Monitor] Respiratory 28 H 29 H 28 H Rate Blood Pressure 111/64 108/63 112/66 O2 Sat by Pulse 93 93 93 Oximetry 02/17/21 02/17/21 02/17/21 02:15 02:30 02:45 Temperature Pulse Rate 51 L 52 L 50 L Pulse Rate [ From Monitor] Respiratory 28 H 28 H 23 Rate Blood Pressure 113/67 114/68 109/68 O2 Sat by Pulse 93 94 94 Oximetry 02/17/21 02/17/21 02/17/21 03:00 03:15 03:30 Temperature Pulse Rate 52 L 52 L 52 L Pulse Rate [ From Monitor] Respiratory 28 H 28 H 28 H Rate Blood Pressure 114/72 117/68 113/70 O2 Sat by Pulse 92 94 94 Oximetry 02/17/21 02/17/21 02/17/21 03:45 04:00 04:15 Temperature 97.5 F L Pulse Rate 52 L 52 L 53 L Pulse Rate [ From Monitor] Respiratory 28 H 28 H 28 H Rate Blood Pressure 117/69 116/70 111/69 O2 Sat by Pulse 93 92 94 Oximetry 02/17/21 02/17/21 02/17/21 04:30 04:45 05:00 Temperature Pulse Rate 51 L 50 L 50 L Pulse Rate [ From Monitor] Respiratory 29 H 28 H 28 H Rate Blood Pressure 113/68 110/67 110/67 O2 Sat by Pulse 94 91 92 Oximetry 02/17/21 02/17/21 02/17/21 05:06 05:16 05:30 Temperature Pulse Rate 50 L 39 L 51 L Pulse Rate [ From Monitor] Respiratory 12 28 H Rate Blood Pressure 114/68 96/45 91/51 O2 Sat by Pulse 92 88 Oximetry 02/17/21 02/17/21 02/17/21 05:45 06:00 06:15 Temperature Pulse Rate 50 L 51 L 51 L Pulse Rate [ From Monitor] Respiratory 28 H 28 H 28 H Rate Blood Pressure 95/54 96/55 95/59 O2 Sat by Pulse 92 92 93 Oximetry 02/17/21 02/17/21 02/17/21 06:30 06:45 07:00 Temperature Pulse Rate 53 L 53 L 53 L Pulse Rate [ From Monitor] Respiratory 28 H 28 H 28 H Rate Blood Pressure 97/58 98/56 97/60 O2 Sat by Pulse 92 93 93 Oximetry 02/17/21 02/17/21 02/17/21 07:15 07:30 07:38 Temperature Pulse Rate 52 L 51 L 51 L Pulse Rate [ From Monitor] Respiratory 28 H 28 H Rate Blood Pressure 95/61 96/59 96/55 O2 Sat by Pulse 92 92 92 Oximetry 02/17/21 02/17/21 02/17/21 07:45 08:00 08:01 Temperature 97.7 F Pulse Rate 52 L 54 L Pulse Rate [ 54 L From Monitor] Respiratory 28 H 28 H Rate Blood Pressure 95/59 95/59 O2 Sat by Pulse 91 91 Oximetry 02/17/21 02/17/21 02/17/21 08:15 08:30 08:45 Temperature Pulse Rate 53 L 57 L 55 L Pulse Rate [ From Monitor] Respiratory 28 H 28 H 28 H Rate Blood Pressure 92/55 87/54 89/52 O2 Sat by Pulse 90 87 89 Oximetry 02/17/21 02/17/21 02/17/21 09:00 09:15 09:30 Temperature Pulse Rate 55 L 55 L 55 L Pulse Rate [ From Monitor] Respiratory 28 H 29 H 28 H Rate Blood Pressure 95/54 89/52 91/55 O2 Sat by Pulse 90 89 90 Oximetry 02/17/21 02/17/21 02/17/21 09:45 10:00 10:15 Temperature Pulse Rate 57 L 76 53 L Pulse Rate [ From Monitor] Respiratory 28 H 28 H 28 H Rate Blood Pressure 88/56 81/48 107/68 O2 Sat by Pulse 90 77 L 90 Oximetry 02/17/21 02/17/21 02/17/21 10:30 10:45 11:00 Temperature Pulse Rate 55 L 56 L 56 L Pulse Rate [ From Monitor] Respiratory 28 H 28 H 28 H Rate Blood Pressure 99/62 96/62 91/61 O2 Sat by Pulse 88 88 87 Oximetry 02/17/21 02/17/21 02/17/21 11:15 11:30 11:45 Temperature Pulse Rate 58 L 55 L 56 L Pulse Rate [ From Monitor] Respiratory 28 H 28 H 28 H Rate Blood Pressure 92/62 88/58 87/57 O2 Sat by Pulse 89 88 88 Oximetry 02/17/21 02/17/21 12:00 12:15 Temperature Pulse Rate 55 L 60 Pulse Rate [ From Monitor] Respiratory 28 H 28 H Rate Blood Pressure 88/51 78/47 O2 Sat by Pulse 87 82 L Oximetry Constitutional: no acute distress, other (elderly lady without significant patient ventilator dyssynchrony) Eyes: non-icteric ENT: oropharynx moist, other (ETT 24 cm JANETH) Neck: supple, no lymphadenopathy, no JVD, other (large circumference) Effort: mildly labored Ascultation: Bilateral: diminished breath sounds, rales, other (+ SQ emphysema palpable to upper chest / lower neck) Percussion: Bilateral: not dull Cardiovascular: regular rate and rhythm Gastrointestinal: normoactive bowel sounds, soft, non-tender, non-distended Integumentary: normal Extremities: no edema, pulses normal, no ischemia or petechiae, edema Neurologic: non-focal exam (grossly), pupils equal and round, CN II-XII normal, motor strength normal and (sedated), other (sedated) Psychiatric: mood appropriate, affect normal CBC and BMP: 02/17/21 15:51 02/17/21 04:30 ABG, PT/INR, D-dimer: ABG ABG pH 7.435 (7.320-7.450) 02/17/21 04:00 POC ABG pCO2 28.7 mmHg (32.0-48.0) L 02/17/21 04:00 ABG pCO2 39.8 mm Hg 02/16/21 10:45 POC ABG pO2 59.0 mmHg (83-108) L 02/17/21 04:00 ABG pO2 37.9 mm Hg (80.0-90.0) L* 02/16/21 10:45 POC ABG HCO3 18.8 02/17/21 04:00 ABG O2 Saturation 90.5 (0-100) 02/17/21 04:00 PT/INR, D-dimer PT 15.3 Sec. (12.2-14.9) H 02/13/21 16:27 INR 1.16 (0.87-1.13) H 02/13/21 16:27 D-Dimer 2846.74 ng/mlDDU (0-234) H 02/16/21 10:31 Abnormal lab findings: Abnormal Labs 02/13/21 02/13/21 02/13/21 12:46 13:28 13:28 WBC RBC Hgb Hct MCV MCH 25 L RDW 15.7 H Lymph % (Auto) 5.9 L Lymph # (Auto) 0.3 L Seg Neutrophils % 89.3 H PT 15.0 H INR APTT 23.8 L D-Dimer 478.95 H Heparin Anti-Xa Level ABG pH POC ABG pCO2 POC ABG pO2 ABG pO2 ABG O2 Saturation ABG Base Excess ABG Hemoglobin ABG Oxyhemoglobin ABG Sodium ABG Potassium ABG Glucose Oxyhemoglobin Carboxyhemoglobin Potassium Chloride Carbon Dioxide BUN Creatinine Glucose POC Glucose 190 H Lactic Acid Calcium Magnesium Ferritin AST Lactate Dehydrogenase Total Creatine Kinase Troponin T C-Reactive Protein NT-Pro-B Natriuret Pep Albumin Triglycerides TSH Arterial Blood Glucose Arterial Blood Ionized Calcium Urine WBC (Auto) Urine Creatinine Salicylates Acetaminophen Coronavirus (PCR) 02/13/21 02/13/21 02/13/21 13:28 13:28 13:28 WBC RBC Hgb Hct MCV MCH RDW Lymph % (Auto) Lymph # (Auto) Seg Neutrophils % PT INR APTT D-Dimer Heparin Anti-Xa Level ABG pH POC ABG pCO2 POC ABG pO2 ABG pO2 ABG O2 Saturation ABG Base Excess ABG Hemoglobin ABG Oxyhemoglobin ABG Sodium ABG Potassium ABG Glucose Oxyhemoglobin Carboxyhemoglobin Potassium 5.1 H Chloride 95.7 L Carbon Dioxide BUN 36 H Creatinine 2.0 H Glucose 172 H POC Glucose Lactic Acid 6.50 H* Calcium 7.5 L Magnesium Ferritin AST 81 H Lactate Dehydrogenase Total Creatine Kinase 1572 H Troponin T C-Reactive Protein NT-Pro-B Natriuret Pep Albumin 3.4 L Triglycerides TSH 8.530 H Arterial Blood Glucose Arterial Blood Ionized Calcium Urine WBC (Auto) Urine Creatinine Salicylates Acetaminophen Coronavirus (PCR) 02/13/21 02/13/21 02/13/21 13:28 13:28 13:28 WBC RBC Hgb Hct MCV MCH RDW Lymph % (Auto) Lymph # (Auto) Seg Neutrophils % PT INR APTT D-Dimer Heparin Anti-Xa Level ABG pH POC ABG pCO2 POC ABG pO2 ABG pO2 ABG O2 Saturation ABG Base Excess ABG Hemoglobin ABG Oxyhemoglobin ABG Sodium ABG Potassium ABG Glucose Oxyhemoglobin Carboxyhemoglobin Potassium Chloride Carbon Dioxide BUN Creatinine Glucose POC Glucose Lactic Acid Calcium Magnesium 2.60 H Ferritin AST Lactate Dehydrogenase Total Creatine Kinase Troponin T C-Reactive Protein NT-Pro-B Natriuret Pep Albumin Triglycerides TSH Arterial Blood Glucose Arterial Blood Ionized Calcium Urine WBC (Auto) Urine Creatinine Salicylates < 0.3 L Acetaminophen 5.0 L Coronavirus (PCR) 02/13/21 02/13/21 02/13/21 13:36 13:36 13:36 WBC RBC Hgb Hct MCV MCH RDW Lymph % (Auto) Lymph # (Auto) Seg Neutrophils % PT INR APTT D-Dimer Heparin Anti-Xa Level ABG pH POC ABG pCO2 POC ABG pO2 ABG pO2 ABG O2 Saturation ABG Base Excess ABG Hemoglobin ABG Oxyhemoglobin ABG Sodium ABG Potassium ABG Glucose Oxyhemoglobin Carboxyhemoglobin Potassium Chloride Carbon Dioxide BUN Creatinine Glucose 176 H POC Glucose Lactic Acid Calcium Magnesium Ferritin 1667.0 H AST Lactate Dehydrogenase 713 H Total Creatine Kinase Troponin T C-Reactive Protein 30.70 H NT-Pro-B Natriuret Pep 3473 H Albumin Triglycerides TSH Arterial Blood Glucose Arterial Blood Ionized Calcium Urine WBC (Auto) Urine Creatinine Salicylates Acetaminophen Coronavirus (PCR) 02/13/21 02/13/21 02/13/21 14:18 16:27 16:27 WBC RBC Hgb Hct MCV MCH RDW Lymph % (Auto) Lymph # (Auto) Seg Neutrophils % PT INR APTT D-Dimer Heparin Anti-Xa Level ABG pH 7.528 H POC ABG pCO2 POC ABG pO2 49.8 L ABG pO2 ABG O2 Saturation ABG Base Excess ABG Hemoglobin 11.8 L ABG Oxyhemoglobin 85.8 L ABG Sodium ABG Potassium ABG Glucose 180 H Oxyhemoglobin Carboxyhemoglobin Potassium Chloride Carbon Dioxide BUN Creatinine Glucose POC Glucose Lactic Acid 5.30 H* Calcium Magnesium Ferritin AST Lactate Dehydrogenase Total Creatine Kinase Troponin T 0.034 H D C-Reactive Protein NT-Pro-B Natriuret Pep Albumin Triglycerides 181 H TSH Arterial Blood Glucose 180 H Arterial Blood Ionized Calcium 3.7 L Urine WBC (Auto) Urine Creatinine Salicylates Acetaminophen Coronavirus (PCR) 02/13/21 02/13/21 02/13/21 16:27 18:39 18:39 WBC RBC Hgb Hct MCV MCH RDW Lymph % (Auto) Lymph # (Auto) Seg Neutrophils % PT 15.3 H INR 1.16 H APTT D-Dimer Heparin Anti-Xa Level ABG pH POC ABG pCO2 POC ABG pO2 ABG pO2 ABG O2 Saturation ABG Base Excess ABG Hemoglobin ABG Oxyhemoglobin ABG Sodium ABG Potassium ABG Glucose Oxyhemoglobin Carboxyhemoglobin Potassium Chloride Carbon Dioxide BUN Creatinine Glucose POC Glucose Lactic Acid 3.80 H* Calcium Magnesium Ferritin AST Lactate Dehydrogenase Total Creatine Kinase Troponin T 0.033 H C-Reactive Protein NT-Pro-B Natriuret Pep Albumin Triglycerides TSH Arterial Blood Glucose Arterial Blood Ionized Calcium Urine WBC (Auto) Urine Creatinine Salicylates Acetaminophen Coronavirus (PCR) 02/13/21 02/13/21 02/14/21 21:00 21:27 03:54 WBC RBC Hgb Hct MCV MCH RDW Lymph % (Auto) Lymph # (Auto) Seg Neutrophils % PT INR APTT D-Dimer Heparin Anti-Xa Level 0.96 H ABG pH POC ABG pCO2 POC ABG pO2 44.5 L ABG pO2 ABG O2 Saturation ABG Base Excess ABG Hemoglobin ABG Oxyhemoglobin 78.3 L ABG Sodium ABG Potassium ABG Glucose 181 H Oxyhemoglobin Carboxyhemoglobin Potassium Chloride Carbon Dioxide BUN Creatinine Glucose POC Glucose Lactic Acid Calcium Magnesium Ferritin AST Lactate Dehydrogenase Total Creatine Kinase Troponin T C-Reactive Protein NT-Pro-B Natriuret Pep Albumin Triglycerides TSH Arterial Blood Glucose 181 H Arterial Blood Ionized Calcium 4.2 L Urine WBC (Auto) 31.0 H Urine Creatinine Salicylates Acetaminophen Coronavirus (PCR) 02/14/21 02/14/21 02/14/21 03:54 10:40 10:40 WBC RBC Hgb Hct MCV MCH RDW Lymph % (Auto) Lymph # (Auto) Seg Neutrophils % PT INR APTT D-Dimer 1007.53 H Heparin Anti-Xa Level ABG pH POC ABG pCO2 POC ABG pO2 ABG pO2 ABG O2 Saturation ABG Base Excess ABG Hemoglobin ABG Oxyhemoglobin ABG Sodium ABG Potassium ABG Glucose Oxyhemoglobin Carboxyhemoglobin Potassium Chloride Carbon Dioxide BUN 41 H Creatinine 2.4 H Glucose 210 H POC Glucose Lactic Acid Calcium 7.7 L Magnesium Ferritin 1148.0 H AST Lactate Dehydrogenase Total Creatine Kinase Troponin T C-Reactive Protein NT-Pro-B Natriuret Pep Albumin Triglycerides TSH Arterial Blood Glucose Arterial Blood Ionized Calcium Urine WBC (Auto) Urine Creatinine Salicylates Acetaminophen Coronavirus (PCR) 02/14/21 02/14/21 02/14/21 10:40 11:33 17:51 WBC RBC Hgb Hct MCV MCH RDW Lymph % (Auto) Lymph # (Auto) Seg Neutrophils % PT INR APTT D-Dimer Heparin Anti-Xa Level ABG pH 7.285 L POC ABG pCO2 51.7 H POC ABG pO2 36.7 L ABG pO2 ABG O2 Saturation ABG Base Excess ABG Hemoglobin ABG Oxyhemoglobin 57.9 L ABG Sodium ABG Potassium ABG Glucose 310 H Oxyhemoglobin Carboxyhemoglobin Potassium Chloride Carbon Dioxide BUN Creatinine Glucose POC Glucose 265 H Lactic Acid Calcium Magnesium Ferritin AST Lactate Dehydrogenase 1381 H Total Creatine Kinase Troponin T C-Reactive Protein 36.70 H NT-Pro-B Natriuret Pep Albumin Triglycerides TSH Arterial Blood Glucose 310 H Arterial Blood Ionized Calcium 3.9 L Urine WBC (Auto) Urine Creatinine Salicylates Acetaminophen Coronavirus (PCR) 02/14/21 02/14/21 02/14/21 18:00 18:15 18:33 WBC RBC Hgb Hct MCV MCH RDW Lymph % (Auto) Lymph # (Auto) Seg Neutrophils % PT INR APTT D-Dimer Heparin Anti-Xa Level 1.09 H ABG pH POC ABG pCO2 POC ABG pO2 41.4 L ABG pO2 ABG O2 Saturation ABG Base Excess ABG Hemoglobin ABG Oxyhemoglobin 70.5 L ABG Sodium ABG Potassium ABG Glucose 308 H Oxyhemoglobin Carboxyhemoglobin Potassium Chloride Carbon Dioxide BUN Creatinine Glucose POC Glucose 260 H Lactic Acid Calcium Magnesium Ferritin AST Lactate Dehydrogenase Total Creatine Kinase Troponin T C-Reactive Protein NT-Pro-B Natriuret Pep Albumin Triglycerides TSH Arterial Blood Glucose 308 H Arterial Blood Ionized Calcium 4.0 L Urine WBC (Auto) Urine Creatinine Salicylates Acetaminophen Coronavirus (PCR) 02/14/21 02/14/21 02/14/21 18:45 18:45 Unknown WBC RBC Hgb Hct MCV MCH RDW Lymph % (Auto) Lymph # (Auto) Seg Neutrophils % PT INR APTT D-Dimer Heparin Anti-Xa Level ABG pH POC ABG pCO2 POC ABG pO2 ABG pO2 ABG O2 Saturation ABG Base Excess ABG Hemoglobin ABG Oxyhemoglobin ABG Sodium ABG Potassium ABG Glucose Oxyhemoglobin Carboxyhemoglobin Potassium Chloride Carbon Dioxide BUN Creatinine Glucose POC Glucose Lactic Acid 2.70 H* Calcium Magnesium Ferritin AST Lactate Dehydrogenase Total Creatine Kinase Troponin T C-Reactive Protein NT-Pro-B Natriuret Pep Albumin Triglycerides TSH Arterial Blood Glucose Arterial Blood Ionized Calcium Urine WBC (Auto) Urine Creatinine 80.0 H Salicylates Acetaminophen Coronavirus (PCR) Positive A 02/15/21 02/15/21 02/15/21 00:25 04:07 05:00 WBC 16.0 H RBC Hgb Hct MCV 77 L MCH 25 L RDW 16.1 H Lymph % (Auto) Lymph # (Auto) Seg Neutrophils % PT INR APTT D-Dimer Heparin Anti-Xa Level ABG pH POC ABG pCO2 POC ABG pO2 53.2 L ABG pO2 ABG O2 Saturation ABG Base Excess ABG Hemoglobin ABG Oxyhemoglobin 85.1 L ABG Sodium ABG Potassium ABG Glucose 257 H Oxyhemoglobin Carboxyhemoglobin 0.4 L Potassium Chloride Carbon Dioxide BUN Creatinine Glucose POC Glucose 256 H Lactic Acid Calcium Magnesium Ferritin AST Lactate Dehydrogenase Total Creatine Kinase Troponin T C-Reactive Protein NT-Pro-B Natriuret Pep Albumin Triglycerides TSH Arterial Blood Glucose 257 H Arterial Blood Ionized Calcium 3.8 L Urine WBC (Auto) Urine Creatinine Salicylates Acetaminophen Coronavirus (PCR) 02/15/21 02/15/21 02/15/21 05:00 05:00 05:43 WBC RBC Hgb Hct MCV MCH RDW Lymph % (Auto) Lymph # (Auto) Seg Neutrophils % PT INR APTT D-Dimer Heparin Anti-Xa Level 0.92 H ABG pH POC ABG pCO2 POC ABG pO2 ABG pO2 ABG O2 Saturation ABG Base Excess ABG Hemoglobin ABG Oxyhemoglobin ABG Sodium ABG Potassium ABG Glucose Oxyhemoglobin Carboxyhemoglobin Potassium Chloride Carbon Dioxide BUN 50 H Creatinine 3.2 H Glucose 247 H POC Glucose 253 H Lactic Acid Calcium 7.0 L Magnesium Ferritin AST Lactate Dehydrogenase Total Creatine Kinase Troponin T C-Reactive Protein NT-Pro-B Natriuret Pep Albumin Triglycerides TSH Arterial Blood Glucose Arterial Blood Ionized Calcium Urine WBC (Auto) Urine Creatinine Salicylates Acetaminophen Coronavirus (PCR) 02/15/21 02/15/21 02/15/21 12:11 15:36 23:29 WBC RBC Hgb Hct MCV MCH RDW Lymph % (Auto) Lymph # (Auto) Seg Neutrophils % PT INR APTT D-Dimer Heparin Anti-Xa Level ABG pH POC ABG pCO2 POC ABG pO2 ABG pO2 ABG O2 Saturation ABG Base Excess ABG Hemoglobin ABG Oxyhemoglobin ABG Sodium ABG Potassium ABG Glucose Oxyhemoglobin Carboxyhemoglobin Potassium Chloride Carbon Dioxide BUN Creatinine Glucose POC Glucose 145 H 200 H 220 H Lactic Acid Calcium Magnesium Ferritin AST Lactate Dehydrogenase Total Creatine Kinase Troponin T C-Reactive Protein NT-Pro-B Natriuret Pep Albumin Triglycerides TSH Arterial Blood Glucose Arterial Blood Ionized Calcium Urine WBC (Auto) Urine Creatinine Salicylates Acetaminophen Coronavirus (PCR) 02/16/21 02/16/21 02/16/21 01:31 04:00 04:30 WBC RBC Hgb Hct MCV MCH RDW Lymph % (Auto) Lymph # (Auto) Seg Neutrophils % PT INR APTT D-Dimer Heparin Anti-Xa Level ABG pH 7.243 L POC ABG pCO2 48.6 H POC ABG pO2 57.1 L ABG pO2 ABG O2 Saturation ABG Base Excess ABG Hemoglobin ABG Oxyhemoglobin 82.1 L ABG Sodium ABG Potassium ABG Glucose 287 H Oxyhemoglobin Carboxyhemoglobin Potassium Chloride Carbon Dioxide BUN 66 H Creatinine 4.0 H Glucose 277 H POC Glucose 241 H Lactic Acid Calcium 7.5 L Magnesium Ferritin AST Lactate Dehydrogenase Total Creatine Kinase Troponin T C-Reactive Protein NT-Pro-B Natriuret Pep Albumin Triglycerides 351 H TSH Arterial Blood Glucose 287 H Arterial Blood Ionized Calcium 4.0 L Urine WBC (Auto) Urine Creatinine Salicylates Acetaminophen Coronavirus (PCR) 02/16/21 02/16/21 02/16/21 05:06 08:00 10:10 WBC RBC Hgb Hct MCV MCH RDW Lymph % (Auto) Lymph # (Auto) Seg Neutrophils % PT INR APTT D-Dimer Heparin Anti-Xa Level ABG pH 7.292 L POC ABG pCO2 POC ABG pO2 33.5 L 30.7 L ABG pO2 ABG O2 Saturation ABG Base Excess ABG Hemoglobin ABG Oxyhemoglobin 55.0 L 50.9 L ABG Sodium ABG Potassium 4.7 H 4.6 H ABG Glucose 249 H 215 H Oxyhemoglobin Carboxyhemoglobin 0.4 L Potassium Chloride Carbon Dioxide BUN Creatinine Glucose POC Glucose 242 H Lactic Acid Calcium Magnesium Ferritin AST Lactate Dehydrogenase Total Creatine Kinase Troponin T C-Reactive Protein NT-Pro-B Natriuret Pep Albumin Triglycerides TSH Arterial Blood Glucose 249 H 215 H Arterial Blood Ionized Calcium 3.7 L 3.7 L Urine WBC (Auto) Urine Creatinine Salicylates Acetaminophen Coronavirus (PCR) 02/16/21 02/16/21 02/16/21 10:31 10:31 10:31 WBC RBC Hgb Hct MCV MCH RDW Lymph % (Auto) Lymph # (Auto) Seg Neutrophils % PT INR APTT D-Dimer 2846.74 H Heparin Anti-Xa Level ABG pH POC ABG pCO2 POC ABG pO2 ABG pO2 ABG O2 Saturation ABG Base Excess ABG Hemoglobin ABG Oxyhemoglobin ABG Sodium ABG Potassium ABG Glucose Oxyhemoglobin Carboxyhemoglobin Potassium Chloride Carbon Dioxide BUN Creatinine Glucose POC Glucose Lactic Acid Calcium Magnesium Ferritin 1164.0 H AST Lactate Dehydrogenase 1678 H Total Creatine Kinase Troponin T C-Reactive Protein 33.10 H NT-Pro-B Natriuret Pep Albumin Triglycerides TSH Arterial Blood Glucose Arterial Blood Ionized Calcium Urine WBC (Auto) Urine Creatinine Salicylates Acetaminophen Coronavirus (PCR) 02/16/21 02/16/21 02/16/21 10:45 12:06 13:23 WBC 20.3 H RBC 6.08 H Hgb 15.1 H D Hct 45.9 H D MCV 75 L MCH 25 L RDW 16.4 H Lymph % (Auto) Lymph # (Auto) Seg Neutrophils % PT INR APTT D-Dimer Heparin Anti-Xa Level ABG pH 7.330 L POC ABG pCO2 POC ABG pO2 ABG pO2 37.9 L* ABG O2 Saturation 64.0 L ABG Base Excess -5.0 L ABG Hemoglobin 11.8 L ABG Oxyhemoglobin ABG Sodium ABG Potassium ABG Glucose Oxyhemoglobin 62.7 L Carboxyhemoglobin Potassium Chloride Carbon Dioxide BUN Creatinine Glucose POC Glucose 223 H Lactic Acid Calcium Magnesium Ferritin AST Lactate Dehydrogenase Total Creatine Kinase Troponin T C-Reactive Protein NT-Pro-B Natriuret Pep Albumin Triglycerides TSH Arterial Blood Glucose Arterial Blood Ionized Calcium Urine WBC (Auto) Urine Creatinine Salicylates Acetaminophen Coronavirus (PCR) 02/16/21 02/16/21 02/16/21 17:24 20:08 23:57 WBC RBC Hgb Hct MCV MCH RDW Lymph % (Auto) Lymph # (Auto) Seg Neutrophils % PT INR APTT D-Dimer Heparin Anti-Xa Level 1.06 H ABG pH POC ABG pCO2 POC ABG pO2 ABG pO2 ABG O2 Saturation ABG Base Excess ABG Hemoglobin ABG Oxyhemoglobin ABG Sodium ABG Potassium ABG Glucose Oxyhemoglobin Carboxyhemoglobin Potassium Chloride Carbon Dioxide BUN Creatinine Glucose POC Glucose 272 H 245 H Lactic Acid Calcium Magnesium Ferritin AST Lactate Dehydrogenase Total Creatine Kinase Troponin T C-Reactive Protein NT-Pro-B Natriuret Pep Albumin Triglycerides TSH Arterial Blood Glucose Arterial Blood Ionized Calcium Urine WBC (Auto) Urine Creatinine Salicylates Acetaminophen Coronavirus (PCR) 02/17/21 02/17/21 02/17/21 04:00 04:30 04:30 WBC 12.5 H RBC Hgb 9.2 L D Hct 28.4 L D MCV 76 L MCH 25 L RDW 15.9 H Lymph % (Auto) Lymph # (Auto) Seg Neutrophils % PT INR APTT D-Dimer Heparin Anti-Xa Level ABG pH POC ABG pCO2 28.7 L POC ABG pO2 59.0 L ABG pO2 ABG O2 Saturation ABG Base Excess ABG Hemoglobin 10.2 L ABG Oxyhemoglobin 90.3 L ABG Sodium 134.8 L ABG Potassium 3.3 L ABG Glucose 280 H Oxyhemoglobin Carboxyhemoglobin 0.1 L Potassium 3.4 L D Chloride Carbon Dioxide 20 L BUN 81 H Creatinine 5.1 H Glucose 260 H POC Glucose Lactic Acid Calcium 6.3 L D Magnesium Ferritin AST Lactate Dehydrogenase Total Creatine Kinase Troponin T C-Reactive Protein NT-Pro-B Natriuret Pep Albumin Triglycerides TSH Arterial Blood Glucose 280 H Arterial Blood Ionized Calcium 3.5 L Urine WBC (Auto) Urine Creatinine Salicylates Acetaminophen Coronavirus (PCR) 02/17/21 02/17/21 02/17/21 04:30 05:48 12:07 WBC RBC Hgb Hct MCV MCH RDW Lymph % (Auto) Lymph # (Auto) Seg Neutrophils % PT INR APTT D-Dimer Heparin Anti-Xa Level ABG pH POC ABG pCO2 POC ABG pO2 ABG pO2 ABG O2 Saturation ABG Base Excess ABG Hemoglobin ABG Oxyhemoglobin ABG Sodium ABG Potassium ABG Glucose Oxyhemoglobin Carboxyhemoglobin Potassium Chloride Carbon Dioxide BUN Creatinine Glucose POC Glucose 237 H 280 H Lactic Acid Calcium Magnesium 2.40 H Ferritin AST Lactate Dehydrogenase Total Creatine Kinase Troponin T C-Reactive Protein NT-Pro-B Natriuret Pep Albumin Triglycerides TSH Arterial Blood Glucose Arterial Blood Ionized Calcium Urine WBC (Auto) Urine Creatinine Salicylates Acetaminophen Coronavirus (PCR) Chest x-ray: image reviewed (Right PTX + SQ air) Allied health notes reviewed: nursing
[2021-02-17 13:59] LABS: % Iron Saturation 18.18 %
[2021-02-17 14:09] LABS: Hepatitis B Surface Antigen Nonreactive (Negative)
[2021-02-17 14:27] LABS: Hepatitis C Virus Antibody Non-Reactive (NonReactive)
--- NOTE | 2021-02-17 14:36 | Procedure Note ---
Date of procedure: 02/17/21 Pre-op diagnosis: Right Pneumothorax Post-op diagnosis: same Procedure: Right Chest tube Placement (full note dictated # [id number]) Please see dictated notes for full details
--- NOTE | 2021-02-17 15:07 | XRay Report ---
CHEST 1 VIEW 02/17/2021 1:42 PM INDICATION / CLINICAL INFORMATION: Earlier the same day.. COMPARISON: None available. FINDINGS: SUPPORT DEVICES: Right chest tube placement with small residual right pneumothorax. Remaining lines a nd tubes are unchanged. HEART / MEDIASTINUM: No significant abnormality. LUNGS / PLEURA: Bilateral opacity is mildly improved. Improving basilar aeration. ADDITIONAL FINDINGS: No significant additional findings. IMPRESSION: 1. Near resolution of right-sided pneumothorax status post chest tube placement. 2. Improving basilar aeration. Signer Name: Carlos Mir MD Signed: 02/17/2021 3:03 PM Workstation Name: [id number]
[2021-02-17] MEDS: cefTRIAXone/NS 2 GM/100 ML 2 GM/100 ML BAG IV SCH (15:10)
[2021-02-17] MEDS: AZITHROMYCIN/NS 500 MG/250 ML 500 MG/250 ML BAG IV SCH (15:10)
--- NOTE | 2021-02-17 16:03 | Operative Report ---
DATE OF SURGERY: 02/17/2021 PROCEDURE: Right chest tube placement. INDICATION: Acute right pneumothorax. CONSENT: Informed and witnessed obtained from the patient's daughter, Carolin Tinoco and reached at phone number [phone]. COMPLICATIONS: No immediate procedural complications. PROCEDURE DETAILS: As follows: After informed and witnessed consent as well as premedication, the patient being already intubated on the mechanical ventilator and sedated with Versed and fentanyl. The area of the right upper anterior chest wall was sterilely prepped and draped. Sterile technique was used throughout the procedure including sterile drape and sterile gloves, hat, mask. The generous local anesthetic agent was used. Local anesthetic was first infiltrated around the junction of the middle half of the clavicle and the second left intercostal space. The infiltration was taken deeper over the rib cage. I then entered the pleural space initially with a 22 gauge needle and I could see bubbles coming through the fluid. I then retracted this needle and then the introducer needle that came with [facility] thoracentesis kit was then used to again enter the pleural space. Again, I located the rib and advanced the needle above the rib avoiding the vasculature. Again, I could get good air return from the pleural cavity. The tube was introduced, catheter was advanced in place and then a wire was threaded through the catheter. The catheter was pulled out. A little incision was made. It was dilated with the provided dilator and then the chest tube was threaded over the wire into the pleural cavity and ultimately sutured in place. Blood loss was minimal. Post-procedure chest x-ray has confirmed adequate placement and some improvement in the pneumothorax already. TID: [id number] RECEIPT: [id number] CHACHO/SIN/SACHIN
[2021-02-17 16:15] LABS: Mean Corpuscular HGB Conc 33 % (30-34); Mean Corpuscular Volume 76 fl (79-97); Platelet Count 234 K/mm3 (140-440); Red Blood Count 3.57 M/mm3 (3.65-5.03); Red Cell Distribution Width 16.2 % (13.2-15.2)
--- NOTE | 2021-02-17 16:16 | Event Note ---
<ELKIN GERMAIN - Last Filed: 02/17/21 17:07> Date: 02/17/21 Hgb noted down trending from 15 to 9 overnight (WBC dec/plt inc; pos 2L) on dopamine MAP 77 stool last night noted- not reported to be bloody will send stool for blood - during next BM no bloody GI aspirate xray chest noted stat labs ordered Hgb stable oozy from [facility] vascath- I've taken dressing down; this is not source of Hbg drop. I held pressure, applied surgiceal and pressure dressing. bleeding from that site stopped at present CMP pending PTT 90- will hold heparin and reevaluate <CELINA MASTERSON - Last Filed: 02/18/21 08:09> I saw and evaluated the patient. Discussed with the nurse practitioner and agree with their findings and plan as documented in this note.
[2021-02-17] MEDS: DOPamine/D5W 800 MG/250 ML 800 MG/250 ML BAG IV SCH (16:25)
[2021-02-17 16:26] LABS: INR 1.31 (0.87-1.13)
[2021-02-17 16:36] LABS: Calcium 8.5 mg/dL (8.4-10.2)
--- NOTE | 2021-02-17 16:37 | Progress Note ---
<ELKIN GERMAIN - Last Filed: 02/17/21 16:51> Assessment and Plan Assessment and plan: 70 YO Female with Obesity Hypoventilation Syndrome, HTN, Hypothyroidism presents to ED for evaluation. Patient is intubated and on ventilatory support at the time my evaluation is unable to write history. Patient history provided by EMS staff, ED staff, as well as the patient family was made available by telephone for interview. As per daughter the patient was in her usual state of health around bedtime which was 2100 hrs. The patient was found down and unresponsive this morning. EMS was notified and upon arrival the patient was found to be in respiratory distress with a pulse oximetry of 50%. The patient was transported to [facility] for further care and evaluation of the aforementioned symptoms. The patient was seen and evaluated in the emergency department. All lab and imaging studies reviewed. The patient was found to have a pulse oximetry in the 60s which is consistent with acute hypoxemic respiratory failure. The patient was deemed unable to protect her airway and was intubated and placed on ventilatory support. The patient was found to have a blood pressure of 69/33. The patient was also found to have pneumonia on chest x-ray which was complicated by septic shock, metabolic acidosis, toxic metabolic encephalopathy, acute kidney injury. Patient admitted to ICU due to multiple organ system failure. Critical care care team consulted in ED. Patient initiated on sepsis protocol as well as coronavirus protocol. Patient found to have poor prognosis. Advanced care planning conducted in ED. No prior admission for review. No medication listed at time of admission for reconciliation. NEURO: metabolic encephalopathy; sedated keep sedated to raas goal neg 2-3 SAT daily as allowed with oxygenation NOK daugther CV- hypotension due to sepsis/sedation; bradycardia in part due to hypoxia; hx HTN MAP > 65 SB-SR has had zina requiring dopamine NE PRN no echo on record Resp- ARDS; acute hypoxic resp failure due to covid19 pna; hx hypoventilation syndrome intubated - mechanical vent- see RT notes for changes ACPRV [id number] follow ABG and chest xray pneumo on AM xray - CCM placed right CT, now to neg 20 cm suction with no airleak and non tidaling post placement xray noted GI: risk protein cynthia malnutrition TF nutrition following pepcid bowel reg BM overnight guaic ordered --- please send rogelio - SONIA/ ATN/ metabolic acidosis nephrology following planning for HD trialysis placed 02-16 net pos over 2 L over 24 hours trend Cr 2 on admit Trend electrolytes strict I/O daily weight Heme- coagulopathic with covid; on AC VTE heparin gtt oozy from [facility] trialysis site see afternoon event note trend CBC and coags ID- [id number] pna with resulting sepsis covid pos 02-14 ID following azithro and ceftriaxone no remdes given SONIA no acterma given inc procal methylpred per ID afebrile trend WBC and temp curve trend inflammatory markers follow culture data Endo -hx DM with hyperglycemia; morbid obesity; hx hypothyrodism glargine 10U HS SSI avoid hypoglycemia TSH high on 02/13; T3 in AM - consider synthroid Hospital Course 02-13 Admitted through ER 02-14 proned; when supined this AM became hypoxic- took some time to recover 02-16 trialysis cath for HD placed; remains mechanically ventilated on max support 02-[address] for pneumo placed The high probability of a clinically significant, sudden or life threatening deterioration of the all] system(s) required my full and direct attention, intervention and personal management. The aggregate critical care time was [90] minutes. This time is in addition to time spent performing reported procedures but includes the following: [x] Data Review and interpretation [x] Patient assessment and monitoring of vital signs [x] Documentation [x] Medication orders and management Disposition Plan: icu Total Time Spent with Patient (Minutes): 90 History Interval history: volume overload- HD pending Hospitalist Physical - Constitutional Vitals: Temp Pulse Resp BP Pulse Ox 97.7 F 54 L 28 H 145/72 93 02/17/21 08:01 02/17/21 15:46 02/17/21 13:30 02/17/21 15:46 02/17/21 15:46 General appearance: Present: well-nourished - EENT Eyes: Present: PERRL ENT: clear oral mucosa - Neck Neck: Present: supple - Respiratory Respiratory effort: normal - Cardiovascular Rhythm: regular Heart Sounds: Present: S1 & S2 - Extremities Extremity abnormal: edema - Abdominal General gastrointestinal: soft - Integumentary Integumentary: Present: clear - Psychiatric Psychiatric: other - Neurologic Neurologic: other - Allied Health Allied health notes reviewed: nursing, RT, social work, case management HEART Score - HEART Score Troponin: Troponin T 0.033 ng/mL (0.00-0.029) H 02/13/21 18:39 Results - Labs CBC & Chem 7: 02/17/21 15:51 02/17/21 04:30 Labs: Laboratory Last Values WBC 12.8 K/mm3 (4.5-11.0) H 02/17/21 15:51 RBC 3.57 M/mm3 (3.65-5.03) L 02/17/21 15:51 Hgb 9.0 gm/dl (10.1-14.3) L 02/17/21 15:51 Hct 27.0 % (30.3-42.9) L 02/17/21 15:51 MCV 76 fl (79-97) L 02/17/21 15:51 MCH 25 pg (28-32) L 02/17/21 15:51 MCHC 33 % (30-34) 02/17/21 15:51 RDW 16.2 % (13.2-15.2) H 02/17/21 15:51 Plt Count 234 K/mm3 (140-440) 02/17/21 15:51 Lymph % (Auto) 5.9 % (13.4-35.0) L 02/13/21 13:28 Norman % (Auto) 4.5 % (0.0-7.3) 02/13/21 13:28 Eos % (Auto) 0.0 % (0.0-4.3) 02/13/21 13:28 Baso % (Auto) 0.3 % (0.0-1.8) 02/13/21 13:28 Lymph # (Auto) 0.3 K/mm3 (1.2-5.4) L 02/13/21 13:28 Norman # (Auto) 0.3 K/mm3 (0.0-0.8) 02/13/21 13:28 Eos # (Auto) 0.0 K/mm3 (0.0-0.4) 02/13/21 13:28 Baso # (Auto) 0.0 K/mm3 (0.0-0.1) 02/13/21 13:28 Seg Neutrophils % 89.3 % (40.0-70.0) H 02/13/21 13:28 Seg Neutrophils # 5.2 K/mm3 (1.8-7.7) 02/13/21 13:28 PT 16.9 Sec. (12.2-14.9) H 02/17/21 15:51 INR 1.31 (0.87-1.13) H 02/17/21 15:51 APTT 27.5 Sec. (24.2-36.6) 02/13/21 16:27 D-Dimer 2846.74 ng/mlDDU (0-234) H 02/16/21 10:31 Heparin Anti-Xa Level 0.70 U.I./ml (0.3-0.7) 02/17/21 06:30 ABG pH 7.435 (7.320-7.450) 02/17/21 04:00 POC ABG pCO2 28.7 mmHg (32.0-48.0) L 02/17/21 04:00 ABG pCO2 39.8 mm Hg 02/16/21 10:45 POC ABG pO2 59.0 mmHg (83-108) L 02/17/21 04:00 ABG pO2 37.9 mm Hg (80.0-90.0) L* 02/16/21 10:45 POC ABG HCO3 18.8 02/17/21 04:00 ABG HCO3 20.5 mmol/L (20.0-26.0) 02/16/21 10:45 ABG O2 Saturation 90.5 (0-100) 02/17/21 04:00 ABG O2 Content 10.4 (0.0-44) 02/16/21 10:45 POC ABG Base Excess -4.4 02/17/21 04:00 ABG Base Excess -5.0 mmol/L (-2.0-3.0) L 02/16/21 10:45 ABG Hemoglobin 10.2 (12.0-17.5) L 02/17/21 04:00 ABG Oxyhemoglobin 90.3 (94-98) L 02/17/21 04:00 ABG Carboxyhemoglobin 1.2 % (0.0-5.0) 02/16/21 10:45 ABG Methemoglobin 0.1 (0.0-1.5) 02/17/21 04:00 ABG Sodium 134.8 mmol/L (136.0-145.0) L 02/17/21 04:00 ABG Potassium 3.3 mmol/L (3.40-4.50) L 02/17/21 04:00 ABG Chloride 106.0 mmol/L (98-107) 02/17/21 04:00 ABG Glucose 280 mg/dL (65-95) H 02/17/21 04:00 Oxyhemoglobin 62.7 % (95.0-99.0) L 02/16/21 10:45 Carboxyhemoglobin 0.1 (0.5-1.5) L 02/17/21 04:00 FiO2 100 % 02/16/21 10:45 FiO2 % 100.0 02/17/21 04:00 Sodium 137 mmol/L (137-145) 02/17/21 04:30 Potassium 3.4 mmol/L (3.6-5.0) L D 02/17/21 04:30 Chloride 99.4 mmol/L (98-107) 02/17/21 04:30 Carbon Dioxide 20 mmol/L (22-30) L 02/17/21 04:30 Anion Gap 21 mmol/L 02/17/21 04:30 BUN 81 mg/dL (7-17) H 02/17/21 04:30 Creatinine 5.1 mg/dL (0.6-1.2) H 02/17/21 04:30 Estimated GFR 10 ml/min 02/17/21 04:30 BUN/Creatinine Ratio 16 % 02/17/21 04:30 Glucose 260 mg/dL (65-100) H 02/17/21 04:30 POC Glucose 280 mg/dL (70-105) H 02/17/21 12:07 Lactic Acid 1.90 mmol/L (0.7-2.0) 02/14/21 22:33 Calcium 6.3 mg/dL (8.4-10.2) L D 02/17/21 04:30 Phosphorus 3.40 mg/dL (2.5-4.5) 02/17/21 04:30 Magnesium 2.70 mg/dL (1.7-2.3) H 02/17/21 12:59 Iron 42 ug/dL (37-170) 02/17/21 12:59 TIBC 231 mcg/dL (250-450) L 02/17/21 12:59 % Saturation 18.18 % 02/17/21 12:59 Transferrin 193 mg/dl (192-382) 02/17/21 12:59 Ferritin 1164.0 ng/mL (10.0-200.0) H 02/16/21 10:31 Total Bilirubin 0.40 mg/dL (0.1-1.2) 02/13/21 13:28 Direct Bilirubin < 0.2 mg/dL (0-0.2) 02/13/21 13:28 Indirect Bilirubin 0.2 mg/dL 02/13/21 13:28 AST 81 units/L (5-40) H 02/13/21 13:28 ALT 25 units/L (7-56) 02/13/21 13:28 Alkaline Phosphatase 42 units/L (35-129) 02/13/21 13:28 Ammonia 48.0 umol/L (25-60) 02/13/21 13:28 Lactate Dehydrogenase 1678 units/L (91-180) H 02/16/21 10:31 Total Creatine Kinase 1572 units/L (30-135) H 02/13/21 13:28 Troponin T 0.033 ng/mL (0.00-0.029) H 02/13/21 18:39 C-Reactive Protein 33.10 mg/dL (0.00-1.30) H 02/16/21 10:31 NT-Pro-B Natriuret Pep 3473 pg/mL (0-900) H 02/13/21 13:36 Total Protein 8.1 g/dL (6.3-8.2) 02/13/21 13:28 Albumin 3.4 g/dL (3.9-5) L 02/13/21 13:28 Albumin/Globulin Ratio 0.7 % 02/13/21 13:28 Triglycerides 351 mg/dL (2-149) H 02/16/21 04:30 Cholesterol 130 mg/dL (50-199) 02/13/21 16:27 LDL Cholesterol Direct 68 mg/dL (50-130) 02/13/21 16:27 HDL Cholesterol 40 mg/dL (40-59) 02/13/21 16:27 Cholesterol/HDL Ratio 3.25 % 02/13/21 16:27 Lipase 35 units/L (13-60) 02/13/21 13:28 Procalcitonin 58.83 ng/mL (<0.15) 02/14/21 10:40 TSH 8.530 mlU/mL (0.270-4.200) H 02/13/21 13:28 Arterial Blood Glucose 280 mg/dL (65-95) H 02/17/21 04:00 Arterial Blood Ionized Calcium 3.5 mg/dL (4.6-5.3) L 02/17/21 04:00 Urine Color Laura (Yellow) 02/13/21 21: Urine Turbidity Turbid (Clear) 02/13/21 21: Urine pH 5.0 (5.0-7.0) 02/13/21 21: Ur Specific Ruffin 1.025 (1.003-1.030) 02/13/21 21: Urine Protein >500 mg/dL (Negative) 02/13/21 21: Urine Glucose (UA) Neg mg/dL (Negative) 02/13/21 21: Urine Ketones Neg mg/dL (Negative) 02/13/21 21:27 Urine Blood Lg (Negative) 02/13/21 21: Urine Nitrite Neg (Negative) 02/13/21 21: Urine Bilirubin Neg (Negative) 02/13/21 21: Urine Urobilinogen < 2.0 mg/dL (<2.0) 02/13/21 21:27 Ur Leukocyte Esterase Neg (Negative) 02/13/21 21:27 Urine WBC (Auto) 31.0 /HPF (0.0-6.0) H 02/13/21 21:27 Urine RBC (Auto) 8.0 /HPF (0.0-6.0) 02/13/21 21:27 U Epithel Cells (Auto) 4.0 /HPF (0-13.0) 02/13/21 21:27 Urine Bacteria (Auto) 2+ /HPF (Negative) 02/13/21 21:27 Urine WBC Clumps 3+ /HPF 02/13/21 21:27 Hyaline Casts 5 /LPF 02/13/21 21: Urine Mucus 2+ /HPF 02/13/21 21:27 Urine Yeast (Budding) 3+ /HPF 02/13/21 21:27 Urine Creatinine 80.0 mg/dL (0.1-20.0) H 02/14/21 18:45 Urine Sodium 33 mmol/L 02/14/21 18:45 Salicylates < 0.3 mg/dL (2.8-20.0) L 02/13/21 13:28 Urine Opiates Screen Negative 02/13/21 21:27 Urine Methadone Screen Negative 02/13/21 21:27 Acetaminophen 5.0 ug/mL (10.0-30.0) L 02/13/21 13:28 Ur Barbiturates Screen Negative 02/13/21 21:27 Ur Phencyclidine Scrn Negative 02/13/21 21:27 Ur Amphetamines Screen Negative 02/13/21 21:27 U Benzodiazepines Scrn Negative 02/13/21 21:27 Urine Cocaine Screen Negative 02/13/21 21:27 U Marijuana (THC) Screen Negative 02/13/21 21:27 Drugs of Abuse Note Disclamer 02/13/21 21:27 Plasma/Serum Alcohol < 0.01 % (0-0.07) 02/13/21 13:28 Coronavirus (PCR) Positive (Negative) A 02/14/21 Unknown Hepatitis A IgM Ab Non-reactive (NonReactive) 02/17/21 12:59 Hep Bs Antigen Nonreactive (Negative) 02/17/21 12:59 Hep B Core IgM Ab Non-reactive (NonReactive) 02/17/21 12:59 Hepatitis C Antibody Non-reactive (NonReactive) 02/17/21 12:59 Blood Type B POSITIVE 02/13/21 13:31 Antibody Screen Negative 02/13/21 13:31 Microbiology: Microbiology 02/13/21 13:48 Peripheral/Venous Blood Culture - Preliminary NO GROWTH AFTER 4 DAYS 02/13/21 13:28 Peripheral/Venous Blood Culture - Preliminary NO GROWTH AFTER 4 DAYS Cho/IV: Voiding Method Indwelling Catheter Active Medications - Current Medications Current Medications: Generic Name Dose Route Start Last Admin Trade Name Freq PRN Reason Stop Dose Admin Acetaminophen 650 mg 02/13/21 15:22 Acetaminophen 325 Mg Tab PO Q6H PRN Pain, Mild (1-3) Acetaminophen 650 mg 02/13/21 15:22 02/13/21 20:30 Acetaminophen 650 Mg Rect Supp CA 650 mg Q6H PRN Administration Pain MILD(1-3)/Fever >100.5/ZACARIAS Albumin Human 25 gm 02/17/21 14:00 02/17/21 13:09 Albumin Human 25% (25 Gm/100 Ml) Inj IV 02/19/21 06:01 25 gm Q8HR RUDY Administration Albumin Human 25 gm 02/17/21 11:14 Albumin Human 25% (25 Gm/100 Ml) Inj IV AFTAB PRN Hypotension Albuterol 2.5 mg 02/13/21 15:22 Albuterol 2.5 Mg/3 Ml Nebu IH Q3H PRN Shortness Of Breath Lipase/Protease/Amylase 1 each 02/14/21 10:43 Lipase 10,500/Protease 25,000/Amylase 43,750 (Units) Dr Iqbal FEEDTUBE PRN PRN For Clogged Feeding Tube Ascorbic Acid 500 mg 02/13/21 22:00 02/17/21 09:55 Ascorbic Acid 500 Mg Tab PO 500 mg BID RUDY Administration Cholecalciferol 1,000 unit 02/13/21 16:00 02/17/21 09:55 Cholecalciferol (Vit D3) 1000 Unit (25 Mcg) Tab PO 1,000 unit QDAY RUDY Administration Dextrose 50 ml 02/14/21 11:15 Dextrose 50% In Water (25gm) 50 Ml Syringe IV Q30MIN PRN Hypoglycemia Protocol Famotidine 20 mg 02/14/21 10:00 02/17/21 09:54 Famotidine 20 Mg/2 Ml Inj IV 20 mg DAILY RUDY Administration Fentanyl 50 mcg 02/13/21 16:05 Fentanyl 100 Mcg/2 Ml Inj IV Q10MIN PRN ANALGESIA Heparin Sodium (Porcine) 4,400 unit 02/14/21 13:18 Heparin 10,000 Units/10 Ml Vial 40 unit/kg (4400 unit) IV Q6H PRN Anti-Xa Assay < 0.1 units/ml Hydrophilic Ointment 1 applic 02/13/21 22:52 Lip Therapy Vaseline TP Q2HR PRN Dry Lips Heparin Sodium/Sodium Chloride 25,000 unit in 500 mls @ 30 mls/hr 02/13/21 17:00 02/17/21 00:31 Heparin/ 0.45% Nacl-25,000 Unit/500 Ml IV 1,050 units/hr TITR RUDY 21 mls/hr Titration Protocol 1,500 UNITS/HR Fentanyl Citrate 2,000 mcg in 100 mls @ 5.55 mls/hr 02/13/21 17:00 02/17/21 15:27 Fentanyl Drip Premix IV 4 mcg/kg/hr TITR RUDY 22.2 mls/hr Administration Protocol 1 MCG/KG/HR Norepinephrine 4 mg in 250 mls @ 75 mls/hr 02/13/21 18:00 02/14/21 01:55 Levophed Drip 4 Mg/Ns 250 Ml IV 0 mcg/min TITR RUDY 0 mls/hr Titration Protocol 20 MCG/MIN Propofol 1,000 mg in 100 mls @ 3.33 mls/hr 02/13/21 23:00 02/17/21 16:25 Diprivan 10 Mg/Ml IV 50 mcg/kg/min TITR RUDY 33.3 mls/hr Administration Protocol 5 MCG/KG/MIN Midazolam HCl 100 mg/ Sodium 100 mls @ 1 mls/hr 02/14/21 09:00 02/17/21 01:32 Chloride IV 5 mg/hr TITR RUDY 5 mls/hr Administration Protocol 1 MG/HR Dopamine HCl/Dextrose 800 mg in 250 mls @ 4.163 mls/hr 02/14/21 09:00 16:25 Intropin Drip 800 Mg/D5w 250 Ml IV 8 mcg/kg/min TITR RUDY 16.65 mls/hr Administration Protocol 2 MCG/KG/MIN Sodium Chloride 100 mls @ 999 mls/hr 02/17/21 11:14 Nacl 0.9% IV AFTAB PRN Hypotension Insulin Glargine 20 units 02/17/21 22:00 Insulin Glargine 100 Units/Ml SUB-Q QHS [facility] Insulin Human Regular 0 units 02/14/21 12:00 02/17/21 13:07 Insulin Regular, Human 100 Units/1 Ml SUB-Q 6 units Q6H [facility] Administration Protocol Methylprednisolone Sodium Succinate 40 mg 02/15/21 01:00 02/17/21 09:55 Methylprednisolone Sod Succinate 125 Mg/2 Ml Inj IV 40 mg Q8H [facility] Administration Midazolam HCl 2 mg 02/14/21 08:24 Midazolam 2 Mg/2 Ml Inj IV Q10MIN PRN Sedation Multi-Ingred Cream/Lotion/Oil/Oint 1 applic 02/13/21 16:05 Mineral Oil/Petrolatum, White Ophth Oint 3.5 Gm OU Q4H PRN Dry Eye(s) Senna/Docusate Sodium 1 tab 02/13/21 22:00 02/17/21 10:01 Sennosides/Docusate Sodium 8.6/50 Mg Tab FEEDTUBE Not Given BID RUDY Simple Syrup 15 ml 02/14/21 10:43 Simple Syrup 15 Ml FEEDTUBE PRN PRN Hypoglycemia Simple Syrup 30 ml 02/14/21 10:43 Simple Syrup 15 Ml FEEDTUBE PRN PRN Hypoglycemia Sodium Bicarbonate 325 mg 02/14/21 10:43 Sodium Bicarbonate 325 Mg Tab FEEDTUBE PRN PRN For Clogged Feeding Tube Sodium Chloride 10 ml 02/13/21 22:00 02/17/21 09:55 Sodium Chloride 0.9% 10 Ml Flush Syringe IV 10 ml BID RUDY Administration Sodium Chloride 10 ml 02/13/21 15:22 Sodium Chloride 0.9% 10 Ml Flush Syringe IV PRN PRN LINE FLUSH Zinc Sulfate 220 mg 02/13/21 22:00 02/17/21 09:55 Zinc Sulfate 220 Mg Cap PO 220 mg BID RUDY Administration Nutrition/Malnutrition Assess - Dietary Evaluation Nutrition/Malnutrition Findings: Nutrition Notes Start: 02/14/21 10:34 Freq: Status: Active Protocol: Document 02/16/21 10:37 (Rec: 02/16/21 10:46 [id number]) Nutrition Notes Initial or Follow up Reassessment Current Diagnosis Acute Kidney Injury, Hypertension,Respiratory Failure Other Pertinent Diagnosis SIRS, pneu, COVID PUI Current Diet Nepro 1.8 at 30 ml/hr Labs/Tests BUN 66 Cr 4 BG 277 Pertinent Medications Dopamine Propofol at 3.33 ml/hr Height 5 ft 6 in Weight 111 kg [place] Body Weight (kg) 59.09 BMI 39.4 Weight Status Morbidly Obese Subjective/Other Information Pt suffered code blue this AM. She is tolerating TF at 20 ml /hr currently. Pt renal function worse and will likely need ASSISTED LIVING NURSING DIRECTOR, per MD. Percent of energy/protein needs met: 71%/33% Burn Absent Trauma Absent Current % PO Negligible Minimum of two criteria No physical signs of malnutrition #1 Nutrition Diagnosis Inadequate oral intake Diagnosis Progress(for reassessment Continues documentation) Is patient on ventilator? Yes Is Patient Ambulatory and/or Out of Bed No REE-([facility]-confined to bed) 1987.392 Kcal/Kg value to use for calculation 11 Approximate Energy Requirements Using 1221 kcal/Kg Calculation Used for Recommendations Kcal/kg Additional Notes Protein: (>2g/kg IBW) greater than 118g Fluid: 1 ml/kcal or per MD Nutrition Intervention Change Diet Order: continue Nutrition Support: Nepro 1.8 at 30 ml/hr Flush 150 ml q4h or per MD Kcal 1,296 Protein (gm) 58 Fluid (mL) 523 Goal #1 Meet at least 75% of kcal needs and meet protein needs as best as possible via TF Anticipated Discharge Needs: Unable to determine at this time Follow-Up By: 02/18/21 Additional Comments F/u: TF at goal, tolerance and propofol rate - Attestation Statement I have reviewed and agreed w/ Malnutrition eval & tx plan: Yes <CELINA MASTERSON - Last Filed: 02/18/21 08:09> Assessment and Plan Assessment and plan: I saw and evaluated the patient. Discussed with the nurse practitioner and agree with their findings and plan as documented in this note. Hospitalist Physical - Constitutional Vitals: Temp Pulse Resp BP Pulse Ox 98.1 F 60 28 H 161/75 97 02/18/21 07:00 02/18/21 06:46 02/18/21 06:46 02/18/21 06:46 02/18/21 06:46 HEART Score - HEART Score Troponin: Troponin T 0.033 ng/mL (0.00-0.029) H 02/13/21 18:39 Results - Labs CBC & Chem 7: 02/18/21 03:39 02/18/21 04:00 Labs: Laboratory Last Values WBC 11.5 K/mm3 (4.5-11.0) H 02/18/21 03:39 RBC 3.18 M/mm3 (3.65-5.03) L 02/18/21 03:39 Hgb 8.1 gm/dl (10.1-14.3) L 02/18/21 03:39 Hct 24.2 % (30.3-42.9) L 02/18/21 03:39 MCV 76 fl (79-97) L 02/18/21 03:39 MCH 26 pg (28-32) L 02/18/21 03:39 MCHC 33 % (30-34) 02/18/21 03:39 RDW 15.8 % (13.2-15.2) H 02/18/21 03:39 Plt Count 220 K/mm3 (140-440) 02/18/21 03:39 Lymph % (Auto) 5.9 % (13.4-35.0) L 02/13/21 13:28 Norman % (Auto) 4.5 % (0.0-7.3) 02/13/21 13:28 Eos % (Auto) 0.0 % (0.0-4.3) 02/13/21 13:28 Baso % (Auto) 0.3 % (0.0-1.8) 02/13/21 13:28 Lymph # (Auto) 0.3 K/mm3 (1.2-5.4) L 02/13/21 13:28 Norman # (Auto) 0.3 K/mm3 (0.0-0.8) 02/13/21 13:28 Eos # (Auto) 0.0 K/mm3 (0.0-0.4) 02/13/21 13:28 Baso # (Auto) 0.0 K/mm3 (0.0-0.1) 02/13/21 13:28 Seg Neutrophils % 89.3 % (40.0-70.0) H 02/13/21 13:28 Seg Neutrophils # 5.2 K/mm3 (1.8-7.7) 02/13/21 13:28 PT 16.9 Sec. (12.2-14.9) H 02/17/21 15:51 INR 1.31 (0.87-1.13) H 02/17/21 15:51 APTT 90.0 Sec. (24.2-36.6) H* 02/17/21 15:51 Fibrinogen 859 mg/dl (211-480) H 02/17/21 15:51 D-Dimer 2846.74 ng/mlDDU (0-234) H 02/16/21 10:31 Heparin Anti-Xa Level 0.70 U.I./ml (0.3-0.7) 02/17/21 06:30 ABG pH 7.315 (7.320-7.450) L 02/18/21 03:00 POC ABG pCO2 34.3 mmHg (32.0-48.0) 02/18/21 03:00 ABG pCO2 39.8 mm Hg 02/16/21 10:45 POC ABG pO2 66.9 mmHg (83-108) L 02/18/21 03:00 ABG pO2 37.9 mm Hg (80.0-90.0) L* 02/16/21 10:45 POC ABG HCO3 17.1 02/18/21 03:00 ABG HCO3 20.5 mmol/L (20.0-26.0) 02/16/21 10:45 ABG O2 Saturation 90.6 (0-100) 02/18/21 03:00 ABG O2 Content 10.4 (0.0-44) 02/16/21 10:45 POC ABG Base Excess -8.3 02/18/21 03:00 ABG Base Excess -5.0 mmol/L (-2.0-3.0) L 02/16/21 10:45 ABG Hemoglobin 8.8 (12.0-17.5) L 02/18/21 03:00 ABG Oxyhemoglobin 90.2 (94-98) L 02/18/21 03:00 ABG Carboxyhemoglobin 1.2 % (0.0-5.0) 02/16/21 10:45 ABG Methemoglobin 0.1 (0.0-1.5) 02/18/21 03:00 ABG Sodium 137.7 mmol/L (136.0-145.0) 02/18/21 03:00 ABG Potassium 4.0 mmol/L (3.40-4.50) 02/18/21 03:00 ABG Chloride 105.0 mmol/L (98-107) 02/18/21 03:00 ABG Glucose 290 mg/dL (65-95) H 02/18/21 03:00 Oxyhemoglobin 62.7 % (95.0-99.0) L 02/16/21 10:45 Carboxyhemoglobin 0.3 (0.5-1.5) L 02/18/21 03:00 FiO2 100 % 02/16/21 10:45 FiO2 % 100.0 02/18/21 03:00 Sodium 140 mmol/L (137-145) 02/18/21 04:00 Potassium 4.2 mmol/L (3.6-5.0) 02/18/21 04:00 Chloride 101.3 mmol/L (98-107) 02/18/21 04:00 Carbon Dioxide 18 mmol/L (22-30) L 02/18/21 04:00 Anion Gap 25 mmol/L 02/18/21 04:00 BUN 95 mg/dL (7-17) H 02/18/21 04:00 Creatinine 5.4 mg/dL (0.6-1.2) H 02/18/21 04:00 Estimated GFR 10 ml/min 02/18/21 04:00 BUN/Creatinine Ratio 18 % 02/18/21 04:00 Glucose 270 mg/dL (65-100) H 02/18/21 04:00 POC Glucose 260 mg/dL (70-105) H 02/18/21 06:11 Lactic Acid 1.90 mmol/L (0.7-2.0) 02/14/21 22:33 Calcium 6.3 mg/dL (8.4-10.2) L D 02/18/21 04:00 Phosphorus 4.40 mg/dL (2.5-4.5) D 02/18/21 03:39 Magnesium 2.60 mg/dL (1.7-2.3) H 02/18/21 03:39 Iron 42 ug/dL (37-170) 02/17/21 12:59 TIBC 231 mcg/dL (250-450) L 02/17/21 12:59 % Saturation 18.18 % 02/17/21 12:59 Transferrin 193 mg/dl (192-382) 02/17/21 12:59 Ferritin 1164.0 ng/mL (10.0-200.0) H 02/16/21 10:31 Total Bilirubin 0.30 mg/dL (0.1-1.2) 02/17/21 15:51 Direct Bilirubin < 0.2 mg/dL (0-0.2) 02/13/21 13:28 Indirect Bilirubin 0.2 mg/dL 02/13/21 13:28 AST 29 units/L (5-40) 02/17/21 15:51 ALT 18 units/L (7-56) 02/17/21 15:51 Alkaline Phosphatase 66 units/L (35-129) 02/17/21 15:51 Ammonia 48.0 umol/L (25-60) 02/13/21 13:28 Lactate Dehydrogenase 1678 units/L (91-180) H 02/16/21 10:31 Total Creatine Kinase 1572 units/L (30-135) H 02/13/21 13:28 Troponin T 0.033 ng/mL (0.00-0.029) H 02/13/21 18:39 C-Reactive Protein 33.10 mg/dL (0.00-1.30) H 02/16/21 10:31 NT-Pro-B Natriuret Pep 3473 pg/mL (0-900) H 02/13/21 13:36 Total Protein 7.0 g/dL (6.3-8.2) 02/17/21 15:51 Albumin 3.0 g/dL (3.9-5) L 02/17/21 15:51 Albumin/Globulin Ratio 0.8 % 02/17/21 15:51 Triglycerides 717 mg/dL (2-149) H 02/18/21 04:00 Cholesterol 130 mg/dL (50-199) 02/13/21 16:27 LDL Cholesterol Direct 68 mg/dL (50-130) 02/13/21 16:27 HDL Cholesterol 40 mg/dL (40-59) 02/13/21 16:27 Cholesterol/HDL Ratio 3.25 % 02/13/21 16:27 Lipase 35 units/L (13-60) 02/13/21 13:28 Procalcitonin 58.83 ng/mL (<0.15) 02/14/21 10:40 TSH 8.530 mlU/mL (0.270-4.200) H 02/13/21 13:28 Arterial Blood Glucose 290 mg/dL (65-95) H 02/18/21 03:00 Arterial Blood Ionized Calcium 3.4 mg/dL (4.6-5.3) L 02/18/21 03:00 Urine Color Laura (Yellow) 02/13/21 21:27 Urine Turbidity Turbid (Clear) 02/13/21 21:27 Urine pH 5.0 (5.0-7.0) 02/13/21 21:27 Ur Specific Ruffin 1.025 (1.003-1.030) 02/13/21 21:27 Urine Protein >500 mg/dL (Negative) 02/13/21 21:27 Urine Glucose (UA) Neg mg/dL (Negative) 02/13/21 21:27 Urine Ketones Neg mg/dL (Negative) 02/13/21 21:27 Urine Blood Lg (Negative) 02/13/21 21:27 Urine Nitrite Neg (Negative) 02/13/21 21:27 Urine Bilirubin Neg (Negative) 02/13/21 21:27 Urine Urobilinogen < 2.0 mg/dL (<2.0) 02/13/21 21:27 Ur Leukocyte Esterase Neg (Negative) 02/13/21 21:27 Urine WBC (Auto) 31.0 /HPF (0.0-6.0) H 02/13/21 21:27 Urine RBC (Auto) 8.0 /HPF (0.0-6.0) 02/13/21 21: U Epithel Cells (Auto) 4.0 /HPF (0-13.0) 02/13/21 21:27 Urine Bacteria (Auto) 2+ /HPF (Negative) 02/13/21 21:27 Urine WBC Clumps 3+ /HPF 02/13/21 21:27 Hyaline Casts 5 /LPF 02/13/21 21:27 Urine Mucus 2+ /HPF 02/13/21 21:27 Urine Yeast (Budding) 3+ /HPF 02/13/21 21:27 Urine Creatinine 80.0 mg/dL (0.1-20.0) H 02/14/21 18:45 Urine Sodium 33 mmol/L 02/14/21 18:45 Salicylates < 0.3 mg/dL (2.8-20.0) L 02/13/21 13:28 Urine Opiates Screen Negative 02/13/21 21:27 Urine Methadone Screen Negative 02/13/21 21:27 Acetaminophen 5.0 ug/mL (10.0-30.0) L 02/13/21 13:28 Ur Barbiturates Screen Negative 02/13/21 21:27 Ur Phencyclidine Scrn Negative 02/13/21 21:27 Ur Amphetamines Screen Negative 02/13/21 21:27 U Benzodiazepines Scrn Negative 02/13/21 21:27 Urine Cocaine Screen Negative 02/13/21 21:27 U Marijuana (THC) Screen Negative 02/13/21 21:27 Drugs of Abuse Note Disclamer 02/13/21 21:27 Plasma/Serum Alcohol < 0.01 % (0-0.07) 02/13/21 13:28 Coronavirus (PCR) Positive (Negative) A 02/14/21 Unknown Hepatitis A IgM Ab Non-reactive (NonReactive) 02/17/21 12:59 Hep Bs Antigen Nonreactive (Negative) 02/17/21 12:59 Hep B Core IgM Ab Non-reactive (NonReactive) 02/17/21 12:59 Hepatitis C Antibody Non-reactive (NonReactive) 02/17/21 12:59 Blood Type B POSITIVE 02/13/21 13:31 Antibody Screen Negative 02/13/21 13:31 Microbiology: Microbiology 02/13/21 13:48 Peripheral/Venous Blood Culture - Preliminary NO GROWTH AFTER 4 DAYS 02/13/21 13:28 Peripheral/Venous Blood Culture - Preliminary NO GROWTH AFTER 4 DAYS Cho/IV: Voiding Method Indwelling Catheter Active Medications - Current Medications Current Medications: Generic Name Dose Route Start Last Admin Trade Name Freq PRN Reason Stop Dose Admin Acetaminophen 650 mg 02/13/21 15:22 Acetaminophen 325 Mg Tab PO Q6H PRN Pain, Mild (1-3) Acetaminophen 650 mg 02/13/21 15:22 02/13/21 20:30 Acetaminophen 650 Mg Rect Supp CA 650 mg Q6H PRN Administration Pain MILD(1-3)/Fever >100.5/ZACARIAS Albumin Human 25 gm 02/17/21 14:00 02/18/21 06:05 Albumin Human 25% (25 Gm/100 Ml) Inj IV 02/19/21 06:01 25 gm Q8HR RUDY Administration Albumin Human 25 gm 02/17/21 11:14 Albumin Human 25% (25 Gm/100 Ml) Inj IV AFTAB PRN Hypotension Albuterol 2.5 mg 02/13/21 15:22 Albuterol 2.5 Mg/3 Ml Nebu IH Q3H PRN Shortness Of Breath Lipase/Protease/Amylase 1 each 02/14/21 10:43 Lipase 10,500/Protease 25,000/Amylase 43,750 (Units) Dr Iqbal FEEDTUBE PRN PRN For Clogged Feeding Tube Ascorbic Acid 500 mg 02/13/21 22:00 02/17/21 23:18 Ascorbic Acid 500 Mg Tab PO 500 mg BID RUDY Administration Cholecalciferol 1,000 unit 02/13/21 16:00 02/17/21 09:55 Cholecalciferol (Vit D3) 1000 Unit (25 Mcg) Tab PO 1,000 unit QDAY RUDY Administration Dextrose 50 ml 02/14/21 11:15 Dextrose 50% In Water (25gm) 50 Ml Syringe IV Q30MIN PRN Hypoglycemia Protocol Famotidine 20 mg 02/14/21 10:00 02/17/21 09:54 Famotidine 20 Mg/2 Ml Inj IV 20 mg DAILY RUDY Administration Fentanyl 50 mcg 02/13/21 16:05 Fentanyl 100 Mcg/2 Ml Inj IV Q10MIN PRN ANALGESIA Heparin Sodium (Porcine) 4,400 unit 02/14/21 13:18 Heparin 10,000 Units/10 Ml Vial 40 unit/kg (4400 unit) IV Q6H PRN Anti-Xa Assay < 0.1 units/ml Hydrophilic Ointment 1 applic 02/13/21 22:52 Lip Therapy Vaseline TP Q2HR PRN Dry Lips Heparin Sodium/Sodium Chloride 25,000 unit in 500 mls @ 30 mls/hr 02/13/21 17:00 02/17/21 17:15 Heparin/ 0.45% Nacl-25,000 Unit/500 Ml IV Infused TITR RUDY Titration Protocol 1,500 UNITS/HR Fentanyl Citrate 2,000 mcg in 100 mls @ 5.55 mls/hr 02/13/21 17:00 02/18/21 06:04 Fentanyl Drip Premix IV 4 mcg/kg/hr TITR RUDY 22.2 mls/hr Administration Protocol 1 MCG/KG/HR Norepinephrine 4 mg in 250 mls @ 75 mls/hr 02/13/21 18:00 02/14/21 01:55 Levophed Drip 4 Mg/Ns 250 Ml IV 0 mcg/min TITR RUDY 0 mls/hr Titration Protocol 20 MCG/MIN Propofol 1,000 mg in 100 mls @ 3.33 mls/hr 02/13/21 23:00 02/18/21 06:35 Diprivan 10 Mg/Ml IV 50 mcg/kg/min TITR RUDY 33.3 mls/hr Administration Protocol 5 MCG/KG/MIN Midazolam HCl 100 mg/ Sodium 100 mls @ 1 mls/hr 02/14/21 09:00 02/18/21 06:25 Chloride IV 6 mg/hr TITR RUDY 6 mls/hr Titration Protocol 1 MG/HR Dopamine HCl/Dextrose 800 mg in 250 mls @ 4.163 mls/hr 02/14/21 09:00 02/18/21 06:25 Intropin Drip 800 Mg/D5w 250 Ml IV 12 mcg/kg/min TITR RUDY 24.975 mls/hr Titration Protocol 2 MCG/KG/MIN Sodium Chloride 100 mls @ 999 mls/hr 02/17/21 11:14 Nacl 0.9% IV AFTAB PRN Hypotension Insulin Glargine 20 units 02/17/21 22:00 02/17/21 23:17 Insulin Glargine 100 Units/Ml SUB-Q 20 units QHS RUDY Administration Insulin Human Regular 0 units 02/14/21 12:00 02/18/21 06:05 Insulin Regular, Human 100 Units/1 Ml SUB-Q 6 units Q6H RUDY Administration Protocol Methylprednisolone Sodium Succinate 40 mg 02/18/21 06:00 02/18/21 06:05 Methylprednisolone Sod Succinate 40 Mg/1 Ml Inj IV 40 mg Q8H RUDY Administration Midazolam HCl 2 mg 02/14/21 08:24 Midazolam 2 Mg/2 Ml Inj IV Q10MIN PRN Sedation Multi-Ingred Cream/Lotion/Oil/Oint 1 applic 02/13/21 16:05 Mineral Oil/Petrolatum, White Ophth Oint 3.5 Gm OU Q4H PRN Dry Eye(s) Senna/Docusate Sodium 1 tab 02/13/21 22:00 02/17/21 23:18 Sennosides/Docusate Sodium 8.6/50 Mg Tab FEEDTUBE Not Given BID RUDY Simple Syrup 15 ml 02/14/21 10:43 Simple Syrup 15 Ml FEEDTUBE PRN PRN Hypoglycemia Simple Syrup 30 ml 02/14/21 10:43 Simple Syrup 15 Ml FEEDTUBE PRN PRN Hypoglycemia Sodium Bicarbonate 325 mg 02/14/21 10:43 Sodium Bicarbonate 325 Mg Tab FEEDTUBE PRN PRN For Clogged Feeding Tube Sodium Chloride 10 ml 02/13/21 22:00 02/17/21 22:00 Sodium Chloride 0.9% 10 Ml Flush Syringe IV 10 ml BID RUDY Administration Sodium Chloride 10 ml 02/13/21 15:22 Sodium Chloride 0.9% 10 Ml Flush Syringe IV PRN PRN LINE FLUSH Zinc Sulfate 220 mg 08/22/21 22:00 02/17/21 23:18 Zinc Sulfate 220 Mg Cap PO 220 mg BID RUDY Administration Nutrition/Malnutrition Assess - Dietary Evaluation Nutrition/Malnutrition Findings: Nutrition Notes Start: 02/14/21 10:34 Freq: Status: Active Protocol: Document 02/16/21 10:37 MK (Rec: 02/16/21 10:46 MK [id number]) Nutrition Notes Initial or Follow up Reassessment Current Diagnosis Acute Kidney Injury, Hypertension,Respiratory Failure Other Pertinent Diagnosis SIRS, pneu, COVID PUI Current Diet Nepro 1.8 at 30 ml/hr Labs/Tests BUN 66 Cr 4 BG 277 Pertinent Medications Dopamine Propofol at 3.33 ml/hr Height 5 ft 6 in Weight 111 kg [place] Body Weight (kg) 59.09 BMI 39.4 Weight Status Morbidly Obese Subjective/Other Information Pt suffered code blue this AM. She is tolerating TF at 20 ml /hr currently. Pt renal function worse and will likely need ASSISTED LIVING NURSING DIRECTOR, per MD. Percent of energy/protein needs met: 71%/33% Burn Absent Trauma Absent Current % PO Negligible Minimum of two criteria No physical signs of malnutrition #1 Nutrition Diagnosis Inadequate oral intake Diagnosis Progress(for reassessment Continues documentation) Is patient on ventilator? Yes Is Patient Ambulatory and/or Out of Bed No REE-([facility]-confined to bed) 1986.392 Kcal/Kg value to use for calculation 11 Approximate Energy Requirements Using 1221 kcal/Kg Calculation Used for Recommendations Kcal/kg Additional Notes Protein: (>2g/kg IBW) greater than 118g Fluid: 1 ml/kcal or per MD Nutrition Intervention Change Diet Order: continue Nutrition Support: Nepro 1.8 at 30 ml/hr Flush 150 ml q4h or per MD Kcal 1,296 Protein (gm) 58 Fluid (mL) 523 Goal #1 Meet at least 75% of kcal needs and meet protein needs as best as possible via TF Anticipated Discharge Needs: Unable to determine at this time Follow-Up By: 02/18/21 Additional Comments F/u: TF at goal, tolerance and propofol rate
[2021-02-17] MEDS ORDERED: INSULIN GLARGINE 100 UNITS/ML SUB-Q SCH (22:00)
[2021-02-18] MEDS: fentaNYL DRIP Premix 2,000 MCG/100 ML BAG IV SCH ×6 (01:01→23:59)
[2021-02-18] MEDS: methylPREDNISolone Sod Succinate 125 MG/2 ML INJ IV SCH (01:07)
[2021-02-18 04:32] LABS: Hematocrit 24.2 % (30.3-42.9); Hemoglobin 8.1 gm/dl (10.1-14.3); Mean Corpuscular HGB Conc 33 % (30-34); Mean Corpuscular Volume 76 fl (79-97); Platelet Count 220 K/mm3 (140-440); Red Blood Count 3.18 M/mm3 (3.65-5.03); Red Cell Distribution Width 15.8 % (13.2-15.2)
[2021-02-18 04:48] LABS: Calcium 6.3 mg/dL (8.4-10.2)
[2021-02-18] MEDS: DOPamine/D5W 800 MG/250 ML 800 MG/250 ML BAG IV SCH ×2 (06:04→17:55)
[2021-02-18] MEDS: INSULIN REGULAR, HUMAN 100 UNITS/1 ML SUB-Q SCH ×4 (06:05→23:59)
[2021-02-18] MEDS: methylPREDNISolone Sod Succinate 40 MG/1 ML INJ IV SCH ×3 (06:05→22:55)
[2021-02-18] MEDS: ALBUMIN HUMAN 25% (25 GM/100 ML) INJ IV SCH ×3 (06:05→22:56)
--- NOTE | 2021-02-18 08:04 | XRay Report ---
CHEST 1 VIEW 02/18/2021 6:31 AM INDICATION / CLINICAL INFORMATION: follow up respiratory failure. COMPARISON: One view of the chest from 02/17/2021 FINDINGS: SUPPORT DEVICES: Unchanged. HEART / MEDIASTINUM: Stable. LUNGS / PLEURA: Bilateral pleural parenchymal opacities have worsened. A small right apical pneumotho rax is unchanged. ADDITIONAL FINDINGS: Increased subcutaneous gas is noted throughout the neck and chest. IMPRESSION: 1. Increased subcutaneous gas throughout the chest and neck with worsening of bilateral pleural-paren chymal opacities. 2. Similar small right pneumothorax. No other significant interval changes. Signer Name: Shahid Guevara MD Signed: 02/18/2021 8:00 AM Workstation Name: [id number]
--- NOTE | 2021-02-18 09:11 | Progress Note ---
Assessment and Plan Impression: * SONIA/ATN * COvid PNA * Acute hypoxic resp failure * Sepsis * cardiac arrest * hyperkalemia * Metabolic acidosis Plan: * daily lytes noted, worsening cr * cardiac arrest noted, worsening atn * added albumin for bp support, CRRT is not availabe, cont vasopressors prn, * initiate Hemodialysis today * daily lytes, reasses needs for hd daily * sonia due to atn from COvid, high risk for progression * strict i/os * avoid nephrotoxins * Keep MAP>65, vasopressors prn * no emergent indicaion for WO[employer] today * sepsis protocol * spoke with patients daughter, Carolin Tinoco, explained risk and benefits of hemodialysis, agrees to proceed with renal replacement therapy Subjective Date of service: 02/18/21 Principal diagnosis: AHRF; ARDS; Pneumonia; PUI COVID-19; OHS; SONIA; Hyperkalemia; AMS Interval history: events noted, labs reviewed Objective - Exam Narrative Exam: GENERAL: Morbidly obese female. Unresponsive and obtunded HEAD: Normocephalic. No obvious signs of trauma. ENT: Dry mucous membranes. Bag valve mask applied EYES: Pupils are constricted bilaterally but remain reactive. NECK: Trachea is midline. LUNGS: Bilateral breath sounds with [id number] ventilation. There are scattered rales throughout. CARDIOVASCULAR: Regular rate and rhythm. 3/6 systolic murmur VASCULAR: Cap refill < 2 seconds ABDOMEN: Abdomen is soft and nondistended. There is central adiposity SKIN: Skin is warm and dry NEURO: Patient is obtunded and unresponsive even to pain. GCS is 3 MUSCULOSKELETAL: No obvious deformities. - Vital Signs Vital signs: Vital Signs - 12hr 02/17/21 02/17/21 02/17/21 21:11 21:15 21:30 Temperature Pulse Rate 79 70 69 Pulse Rate [ From Monitor] Respiratory 28 H 28 H Rate Blood Pressure 116/62 123/59 124/61 O2 Sat by Pulse 92 93 94 Oximetry 02/17/21 02/17/21 02/17/21 21:45 22:00 22:15 Temperature Pulse Rate 68 68 68 Pulse Rate [ From Monitor] Respiratory 28 H 28 H 28 H Rate Blood Pressure 120/62 124/65 126/62 O2 Sat by Pulse 94 94 94 Oximetry 02/17/21 02/17/21 02/17/21 22:30 22:45 23:00 Temperature Pulse Rate 66 68 66 Pulse Rate [ From Monitor] Respiratory 28 H 28 H 28 H Rate Blood Pressure 123/64 122/65 122/61 O2 Sat by Pulse 94 94 94 Oximetry 02/17/21 02/17/21 02/17/21 23:16 23:30 23:45 Temperature Pulse Rate 78 69 65 Pulse Rate [ From Monitor] Respiratory 32 H 28 H 28 H Rate Blood Pressure 109/47 127/65 131/63 O2 Sat by Pulse 74 L 93 94 Oximetry 02/18/21 02/18/21 02/18/21 00:00 00:15 00:30 Temperature 97.2 F L Pulse Rate 63 62 63 Pulse Rate [ 68 From Monitor] Respiratory 28 H 28 H 28 H Rate Blood Pressure 117/58 130/67 135/62 O2 Sat by Pulse 93 95 96 Oximetry 02/18/21 02/18/21 02/18/21 00:45 01:00 01:15 Temperature Pulse Rate 63 62 62 Pulse Rate [ From Monitor] Respiratory 28 H 28 H 28 H Rate Blood Pressure 133/65 136/64 134/62 O2 Sat by Pulse 95 96 96 Oximetry 02/18/21 02/18/21 02/18/21 01:30 01:45 02:00 Temperature Pulse Rate 62 64 63 Pulse Rate [ From Monitor] Respiratory 28 H 28 H 28 H Rate Blood Pressure 135/63 135/63 136/60 O2 Sat by Pulse 96 96 96 Oximetry 02/18/21 02/18/21 02/18/21 02:15 02:30 02:45 Temperature Pulse Rate 63 61 63 Pulse Rate [ From Monitor] Respiratory 28 H 28 H 28 H Rate Blood Pressure 136/63 133/62 136/66 O2 Sat by Pulse 96 96 96 Oximetry 02/18/21 02/18/21 02/18/21 03:00 03:15 03:30 Temperature Pulse Rate 63 63 63 Pulse Rate [ From Monitor] Respiratory 28 H 28 H 28 H Rate Blood Pressure 134/62 135/61 135/61 O2 Sat by Pulse 96 96 89 Oximetry 02/18/21 02/18/21 02/18/21 03:45 03:46 04:00 Temperature 97.6 F Pulse Rate 56 L 60 Pulse Rate [ 68 From Monitor] Respiratory 28 H 28 H Rate Blood Pressure 129/55 147/71 O2 Sat by Pulse 94 96 Oximetry 08/02/18/21 02/18/21 04:15 04:30 04:45 Temperature Pulse Rate 62 77 67 Pulse Rate [ From Monitor] Respiratory 28 H 28 H 28 H Rate Blood Pressure 148/66 147/72 138/66 O2 Sat by Pulse 96 93 95 Oximetry 02/18/21 02/18/21 02/18/21 05:00 05:15 05:20 Temperature Pulse Rate 65 65 60 Pulse Rate [ From Monitor] Respiratory 28 H 28 H Rate Blood Pressure 140/67 139/67 147/71 O2 Sat by Pulse 96 96 96 Oximetry 02/18/21 02/18/21 02/18/21 05:30 05:45 06:00 Temperature Pulse Rate 64 66 64 Pulse Rate [ From Monitor] Respiratory 28 H 28 H 28 H Rate Blood Pressure 137/66 140/65 138/64 O2 Sat by Pulse 96 96 96 Oximetry 02/18/21 02/18/21 02/18/21 06:15 06:30 06:46 Temperature Pulse Rate 60 58 L 60 Pulse Rate [ From Monitor] Respiratory 28 H 28 H 28 H Rate Blood Pressure 84/45 113/68 161/75 O2 Sat by Pulse 92 97 97 Oximetry 02/18/21 02/18/21 07:00 08:13 Temperature 98.1 F Pulse Rate 60 Pulse Rate [ From Monitor] Respiratory Rate Blood Pressure 160/75 O2 Sat by Pulse 96 Oximetry - Lab 02/18/21 03:39 02/18/21 04:00 Most recent lab results ABG pH 7.315 (7.320-7.450) L 02/18/21 03:00 ABG pCO2 39.8 mm Hg 02/16/21 10:45 ABG pO2 37.9 mm Hg (80.0-90.0) L* 02/16/21 10:45 ABG HCO3 20.5 mmol/L (20.0-26.0) 02/16/21 10:45 ABG O2 Saturation 90.6 (0-100) 02/18/21 03:00 Calcium 6.3 mg/dL (8.4-10.2) L D 02/18/21 04:00 Phosphorus 4.40 mg/dL (2.5-4.5) D 02/18/21 03:39 Magnesium 2.60 mg/dL (1.7-2.3) H 02/18/21 03:39 Urine Creatinine 80.0 mg/dL (0.1-20.0) H 02/14/21 18:45 Urine Sodium 33 mmol/L 02/14/21 18:45 Medications & Allergies - Medications Allergies/Adverse Reactions: Allergies Penicillins Adverse Reaction (Unknown, Verified 02/17/21 19:47) Unknown Home Medications: Home Medications Medication Instructions Recorded Confirmed Last Taken Type Insulin NPH Hum/Reg Insulin Hm See Protocol SQ DAILY 02/13/21 02/13/21 Unknown History [Novolin 70-30 100 Unit/ml Vial] metFORMIN [Glucophage] 500 mg PO TID 02/13/21 02/13/21 Unknown History Active Medications: Generic Name Dose Route Start Last Admin Trade Name Freq PRN Reason Stop Dose Admin Acetaminophen 650 mg 02/13/21 15:22 Acetaminophen 325 Mg Tab PO Q6H PRN Pain, Mild (1-3) Acetaminophen 650 mg 02/13/21 15:22 02/13/21 20:30 Acetaminophen 650 Mg Rect Supp MD 650 mg Q6H PRN Administration Pain MILD(1-3)/Fever >100.5/ZACARIAS Albumin Human 25 gm 02/17/21 14:00 02/18/21 06:05 Albumin Human 25% (25 Gm/100 Ml) Inj IV 02/19/21 06:01 25 gm Q8HR RUYD Administration Albumin Human 25 gm 02/17/21 11:14 Albumin Human 25% (25 Gm/100 Ml) Inj IV AFTAB PRN Hypotension Albuterol 2.5 mg 02/13/21 15:22 Albuterol 2.5 Mg/3 Ml Nebu IH Q3H PRN Shortness Of Breath Lipase/Protease/Amylase 1 each 02/14/21 10:43 Lipase 10,500/Protease 25,000/Amylase 43,750 (Units) Dr Iqbal FEEDTUBE PRN PRN For Clogged Feeding Tube Ascorbic Acid 500 mg 02/13/21 22:00 02/17/21 23:18 Ascorbic Acid 500 Mg Tab PO 500 mg BID RUDY Administration Cholecalciferol 1,000 unit 02/13/21 16:00 02/17/21 09:55 Cholecalciferol (Vit D3) 1000 Unit (25 Mcg) Tab PO 1,000 unit QDAY RUDY Administration Dextrose 50 ml 02/14/21 11:15 Dextrose 50% In Water (25gm) 50 Ml Syringe IV Q30MIN PRN Hypoglycemia Protocol Famotidine 20 mg 02/14/21 10:00 02/17/21 09:54 Famotidine 20 Mg/2 Ml Inj IV 20 mg DAILY RUDY Administration Fentanyl 50 mcg 02/13/21 16:05 Fentanyl 100 Mcg/2 Ml Inj IV Q10MIN PRN ANALGESIA Heparin Sodium (Porcine) 4,400 unit 02/14/21 13:18 Heparin 10,000 Units/10 Ml Vial 40 unit/kg (4400 unit) IV Q6H PRN Anti-Xa Assay < 0.1 units/ml Hydrophilic Ointment 1 applic 02/13/21 22:52 Lip Therapy Vaseline TP Q2HR PRN Dry Lips Heparin Sodium/Sodium Chloride 25,000 unit in 500 mls @ 30 mls/hr 02/13/21 17:00 02/17/21 17:15 Heparin/ 0.45% Nacl-25,000 Unit/500 Ml IV Infused TITR RUDY Titration Protocol 1,500 UNITS/HR Fentanyl Citrate 2,000 mcg in 100 mls @ 5.55 mls/hr 02/13/21 17:00 02/18/21 06:04 Fentanyl Drip Premix IV 4 mcg/kg/hr TITR RUDY 22.2 mls/hr Administration Protocol 1 MCG/KG/HR Norepinephrine 4 mg in 250 mls @ 75 mls/hr 02/13/21 18:00 02/14/21 01:55 Levophed Drip 4 Mg/Ns 250 Ml IV 0 mcg/min TITR RDUY 0 mls/hr Titration Protocol 20 MCG/MIN Propofol 1,000 mg in 100 mls @ 3.33 mls/hr 02/13/21 23:00 02/18/21 06:35 Diprivan 10 Mg/Ml IV 50 mcg/kg/min TITR RUDY 33.3 mls/hr Administration Protocol 5 MCG/KG/MIN Midazolam HCl 100 mg/ Sodium 100 mls @ 1 mls/hr 02/14/21 09:00 02/18/21 06:25 Chloride IV 6 mg/hr TITR RUDY 6 mls/hr Titration Protocol 1 MG/HR Dopamine HCl/Dextrose 800 mg in 250 mls @ 4.163 mls/hr 02/14/21 09:00 02/18/21 06:25 Intropin Drip 800 Mg/D5w 250 Ml IV 12 mcg/kg/min TITR RDUY 24.975 mls/hr Titration Protocol 2 MCG/KG/MIN Sodium Chloride 100 mls @ 999 mls/hr 02/17/21 11:14 Nacl 0.9% IV AFTAB PRN Hypotension Insulin Glargine 20 units 02/17/21 22:00 02/17/21 23:17 Insulin Glargine 100 Units/Ml SUB-Q 20 units QHS RUDY Administration Insulin Human Regular 0 units 02/14/21 12:00 02/18/21 06:05 Insulin Regular, Human 100 Units/1 Ml SUB-Q 6 units Q6H RUDY Administration Protocol Methylprednisolone Sodium Succinate 40 mg 02/18/21 06:00 02/18/21 06:05 Methylprednisolone Sod Succinate 40 Mg/1 Ml Inj IV 40 mg Q8H RUDY Administration Midazolam HCl 2 mg 02/14/21 08:24 Midazolam 2 Mg/2 Ml Inj IV Q10MIN PRN Sedation Multi-Ingred Cream/Lotion/Oil/Oint 1 applic 02/13/21 16:05 Mineral Oil/Petrolatum, White Ophth Oint 3.5 Gm OU Q4H PRN Dry Eye(s) Senna/Docusate Sodium 1 tab 02/13/21 22:00 02/17/21 23:18 Sennosides/Docusate Sodium 8.6/50 Mg Tab FEEDTUBE Not Given BID RUDY Simple Syrup 15 ml 02/14/21 10:43 Simple Syrup 15 Ml FEEDTUBE PRN PRN Hypoglycemia Simple Syrup 30 ml 02/14/21 10:43 Simple Syrup 15 Ml FEEDTUBE PRN PRN Hypoglycemia Sodium Bicarbonate 325 mg 02/14/21 10:43 Sodium Bicarbonate 325 Mg Tab FEEDTUBE PRN PRN For Clogged Feeding Tube Sodium Chloride 10 ml 02/13/21 22:00 02/17/21 22:00 Sodium Chloride 0.9% 10 Ml Flush Syringe IV 10 ml BID RUDY Administration Sodium Chloride 10 ml 02/13/21 15:22 Sodium Chloride 0.9% 10 Ml Flush Syringe IV PRN PRN LINE FLUSH Zinc Sulfate 220 mg 02/13/21 22:00 02/17/21 23:18 Zinc Sulfate 220 Mg Cap PO 220 mg BID RUDY Administration
[2021-02-18] MEDS: CHOLECALCIFEROL (VIT D3) 1000 UNIT (25 mcg) TAB PO SCH (10:12)
[2021-02-18] MEDS: SENNOSIDES/DOCUSATE SODIUM 8.6/50 MG TAB FEEDTUBE SCH ×2 (10:12→22:55)
[2021-02-18] MEDS: ZINC SULFATE 220 MG CAP PO SCH ×2 (10:12→22:55)
[2021-02-18] MEDS: ASCORBIC ACID 500 MG TAB PO SCH ×2 (10:12→22:55)
[2021-02-18] MEDS: FAMOTIDINE 20 MG/2 ML INJ IV SCH (10:12)
[2021-02-18] MEDS: MIDAZOLAM 100 MG in SODIUM CHLORIDE 0.9% 80 ML IV SCH (10:13)
[2021-02-18] MEDS ORDERED: INSULIN GLARGINE 100 UNITS/ML SUB-Q NR (10:50)
[2021-02-18 11:43] LABS: C-Reactive Protein 20.3 mg/dL (0.00-1.30)
--- NOTE | 2021-02-18 13:22 | Progress Note ---
Assessment and Plan Acute hypoxemic respiratory failure Acute respiratory distress syndrome Bilateral pneumonia PUI COVID-19 Obesity hypoventilation syndrome Acute kidney injuryElevated serum inflammatory markers to include D-dimers, ferritin, LDH, CRP Hyperkalemia Lactic acidosis Probable rhabdomyolysis Acute encephalopathy - continue chest tube to continuous wall suction - HD/UF for txin and volume clearance per nephrology prescription - trend H&H - peep dropped to 18 - wean vasopressors for target MAP > 65 mmHg and dopamine for target HR > 55- 60/min - continue care as below otherwise; - nephrology evaluation ongoing - continue to wean supplemental oxygen for target O2 sat's > 92% acutely - aspiration precautions - continue bronchodilators with pulmonary hygiene per RT - avoid nephrotoxins, renally dose all medications - continue to avoid benzodiazepine's, reduce the possibility of delirium - complete AB's per ID rec's - prn analgesia per pain score - Maintenance of sleep-wake cycle, avoid delirium - G.I. & VTE prophylaxis - PT/OT/ROM exercises - continue mobility protocols for pressure ulcer prophylaxis - Monitor hemodynamics closely - continue other care per attending / other consultants - discharge planning ongoing concurrently COVID SPECIFIC INTERVENTIONS - Remdesivir as per ID/Pulmonary developed protocols (not a candidate re: SONIA) - continue systemic steroids for severe COVID-19 infection (Solumedrol) - follow repeat COVID tests results - zinc and vitamin C supplementation - Monitor inflammatory markers per facility protocol - ferritin, Ddimer, CRP - therapeutic anticoagulation per system Protocol based on d-dimer and clinical considerations (IV Heparin drip) - Continue contact and airborne isolation .... Re-evaluate in am & prn CONDITION: CRITICAL PROGNOSIS: GUARDED CODE STATUS: FULL CODE The high probability of a clinically significant, sudden or life-threatening deterioration of the [respiratory, cardiovascular & neurologic] system(s) required my full and direct attention, intervention and personal management. The aggregate critical care time was [34] minutes without overlap. Time includes spent on; [x] Data Review and interpretation [x] Patient assessment and monitoring of vital signs [x] Documentation [x] Medication orders and management Subjective Date of service: 02/18/21 Principal diagnosis: AHRF; ARDS; Pneumonia; PUI COVID-19; OHS; SONIA; Hyperkalemia; AMS Interval history: Patient is seen today for: Acute hypoxemic respiratory failure; ARDS; Pneumonia; PUI COVID-19; OHS; SONIA; Hyperkalemia; Rhabdomyolysis; Acute encephalopathy Seen and examined at bedside; 24hour events reviewed; nursing and respiratory care staff consulted; no adverse overnight events reported to me; resting in bed; remains on MVS; SQ emphysema is persistent; FiO2 remains at 100% with minimal room to wean; No emesis or overt aspiration; IV Heparin held again overnight re: significant Vascath site bleeding Objective Vital Signs - 12hr 02/18/21 02/18/21 02/18/21 01:30 01:45 02:00 Temperature Pulse Rate 62 64 63 Pulse Rate [ From Monitor] Respiratory 28 H 28 H 28 H Rate Blood Pressure 135/63 135/63 136/60 O2 Sat by Pulse 96 96 96 Oximetry 02/18/21 02/18/21 02/18/21 02:15 02:30 02:45 Temperature Pulse Rate 63 61 63 Pulse Rate [ From Monitor] Respiratory 28 H 28 H 28 H Rate Blood Pressure 136/63 133/62 136/66 O2 Sat by Pulse 96 96 96 Oximetry 02/18/21 02/18/21 02/18/21 03:00 03:15 03:30 Temperature Pulse Rate 63 63 63 Pulse Rate [ From Monitor] Respiratory 28 H 28 H 28 H Rate Blood Pressure 134/62 135/61 135/61 O2 Sat by Pulse 96 96 89 Oximetry 02/18/21 02/18/21 02/18/21 03:45 03:46 04:00 Temperature 97.6 F Pulse Rate 56 L 60 Pulse Rate [ 68 From Monitor] Respiratory 28 H 28 H Rate Blood Pressure 129/55 147/71 O2 Sat by Pulse 94 96 Oximetry 02/18/21 02/18/21 02/18/21 04:15 04:30 04:45 Temperature Pulse Rate 62 77 67 Pulse Rate [ From Monitor] Respiratory 28 H 28 H 28 H Rate Blood Pressure 148/66 147/72 138/66 O2 Sat by Pulse 96 93 95 Oximetry 02/18/21 02/18/21 02/18/21 05:00 05:15 05:20 Temperature Pulse Rate 65 65 60 Pulse Rate [ From Monitor] Respiratory 28 H 28 H Rate Blood Pressure 140/67 139/67 147/71 O2 Sat by Pulse 96 96 96 Oximetry 02/18/21 02/18/21 02/18/21 05:30 05:45 06:00 Temperature Pulse Rate 64 66 64 Pulse Rate [ From Monitor] Respiratory 28 H 28 H 28 H Rate Blood Pressure 137/66 140/65 138/64 O2 Sat by Pulse 96 96 96 Oximetry 02/18/21 02/18/21 02/18/21 06:15 06:30 06:46 Temperature Pulse Rate 60 58 L 60 Pulse Rate [ From Monitor] Respiratory 28 H 28 H 28 H Rate Blood Pressure 84/45 113/68 161/75 O2 Sat by Pulse 92 97 97 Oximetry 02/18/21 02/18/21 02/18/21 07:00 07:15 07:30 Temperature 98.1 F Pulse Rate 60 60 61 Pulse Rate [ From Monitor] Respiratory 28 H 28 H 28 H Rate Blood Pressure 162/70 161/73 160/70 O2 Sat by Pulse 96 96 96 Oximetry 02/18/21 02/18/21 02/18/21 07:45 08:00 08:13 Temperature Pulse Rate 60 60 60 Pulse Rate [ 60 From Monitor] Respiratory 28 H 28 H Rate Blood Pressure 159/70 160/75 160/75 O2 Sat by Pulse 96 96 96 Oximetry 02/18/21 02/18/21 02/18/21 08:16 08:30 08:45 Temperature Pulse Rate 61 62 62 Pulse Rate [ From Monitor] Respiratory 28 H 28 H 28 H Rate Blood Pressure 160/75 155/75 161/72 O2 Sat by Pulse 96 95 96 Oximetry 02/18/21 02/18/21 02/18/21 09:00 09:15 09:30 Temperature Pulse Rate 60 63 62 Pulse Rate [ From Monitor] Respiratory 28 H 28 H 28 H Rate Blood Pressure 158/65 158/65 156/72 O2 Sat by Pulse 95 96 95 Oximetry 02/18/21 02/18/21 02/18/21 09:45 10:00 10:15 Temperature Pulse Rate 63 64 63 Pulse Rate [ From Monitor] Respiratory 25 H 28 H 28 H Rate Blood Pressure 156/72 163/70 163/70 O2 Sat by Pulse 95 93 96 Oximetry 02/18/21 02/18/21 02/18/21 10:30 10:45 11:46 Temperature 98.3 F Pulse Rate 63 61 Pulse Rate [ From Monitor] Respiratory 28 H 28 H Rate Blood Pressure 154/69 154/69 O2 Sat by Pulse 96 95 Oximetry 02/18/21 12:33 Temperature Pulse Rate 60 Pulse Rate [ From Monitor] Respiratory Rate Blood Pressure 138/59 O2 Sat by Pulse 94 Oximetry Constitutional: no acute distress, other (elderly lady without significant patient ventilator dyssynchrony) Eyes: non-icteric ENT: oropharynx moist, other (ETT 24 cm JANETH) Neck: supple, no lymphadenopathy, no JVD, other (large circumference) Effort: mildly labored Ascultation: Bilateral: diminished breath sounds, rales, other (right anterior chest tube in place) Percussion: Bilateral: not dull Cardiovascular: regular rate and rhythm Gastrointestinal: normoactive bowel sounds, soft, non-tender, non-distended Integumentary: normal Extremities: no edema, pulses normal, no ischemia or petechiae, edema Neurologic: non-focal exam (grossly), pupils equal and round, CN II-XII normal, other (sedated) Psychiatric: other (unable to assess re: AMS) CBC and BMP: 02/18/21 03:39 02/18/21 04:00 ABG, PT/INR, D-dimer: ABG ABG pH 7.315 (7.320-7.450) L 02/18/21 03:00 POC ABG pCO2 34.3 mmHg (32.0-48.0) 02/18/21 03:00 ABG pCO2 39.8 mm Hg 02/16/21 10:45 POC ABG pO2 66.9 mmHg (83-108) L 02/18/21 03:00 ABG pO2 37.9 mm Hg (80.0-90.0) L* 02/16/21 10:45 POC ABG HCO3 17.1 02/18/21 03:00 ABG O2 Saturation 90.6 (0-100) 02/18/21 03:00 PT/INR, D-dimer PT 16.9 Sec. (12.2-14.9) H 02/17/21 15:51 INR 1.31 (0.87-1.13) H 02/17/21 15:51 D-Dimer 1769.98 ng/mlDDU (0-234) H 02/18/21 09:45 Abnormal lab findings: Abnormal Labs 02/13/21 02/13/21 02/13/21 12:46 13:28 13:28 WBC RBC Hgb Hct MCV MCH 25 L RDW 15.7 H Lymph % (Auto) 5.9 L Lymph # (Auto) 0.3 L Seg Neutrophils % 89.3 H PT 15.0 H INR APTT 23.8 L Fibrinogen D-Dimer 478.95 H Heparin Anti-Xa Level ABG pH POC ABG pCO2 POC ABG pO2 ABG pO2 ABG O2 Saturation ABG Base Excess ABG Hemoglobin ABG Oxyhemoglobin ABG Sodium ABG Potassium ABG Glucose Oxyhemoglobin Carboxyhemoglobin Potassium Chloride Carbon Dioxide BUN Creatinine Glucose POC Glucose 190 H Lactic Acid Calcium Magnesium TIBC Ferritin AST Lactate Dehydrogenase Total Creatine Kinase Troponin T C-Reactive Protein NT-Pro-B Natriuret Pep Albumin Triglycerides TSH Arterial Blood Glucose Arterial Blood Ionized Calcium Urine WBC (Auto) Urine Creatinine Salicylates Acetaminophen Coronavirus (PCR) 02/13/21 02/13/21 02/13/21 13:28 13:28 13:28 WBC RBC Hgb Hct MCV MCH RDW Lymph % (Auto) Lymph # (Auto) Seg Neutrophils % PT INR APTT Fibrinogen D-Dimer Heparin Anti-Xa Level ABG pH POC ABG pCO2 POC ABG pO2 ABG pO2 ABG O2 Saturation ABG Base Excess ABG Hemoglobin ABG Oxyhemoglobin ABG Sodium ABG Potassium ABG Glucose Oxyhemoglobin Carboxyhemoglobin Potassium 5.1 H Chloride 95.7 L Carbon Dioxide BUN 36 H Creatinine 2.0 H Glucose 172 H POC Glucose Lactic Acid 6.50 H* Calcium 7.5 L Magnesium TIBC Ferritin AST 81 H Lactate Dehydrogenase Total Creatine Kinase 1572 H Troponin T C-Reactive Protein NT-Pro-B Natriuret Pep Albumin 3.4 L Triglycerides TSH 8.530 H Arterial Blood Glucose Arterial Blood Ionized Calcium Urine WBC (Auto) Urine Creatinine Salicylates Acetaminophen Coronavirus (PCR) 02/13/21 02/13/21 02/13/21 13:28 13:28 13:28 WBC RBC Hgb Hct MCV MCH RDW Lymph % (Auto) Lymph # (Auto) Seg Neutrophils % PT INR APTT Fibrinogen D-Dimer Heparin Anti-Xa Level ABG pH POC ABG pCO2 POC ABG pO2 ABG pO2 ABG O2 Saturation ABG Base Excess ABG Hemoglobin ABG Oxyhemoglobin ABG Sodium ABG Potassium ABG Glucose Oxyhemoglobin Carboxyhemoglobin Potassium Chloride Carbon Dioxide BUN Creatinine Glucose POC Glucose Lactic Acid Calcium Magnesium 2.60 H TIBC Ferritin AST Lactate Dehydrogenase Total Creatine Kinase Troponin T C-Reactive Protein NT-Pro-B Natriuret Pep Albumin Triglycerides TSH Arterial Blood Glucose Arterial Blood Ionized Calcium Urine WBC (Auto) Urine Creatinine Salicylates < 0.3 L Acetaminophen 5.0 L Coronavirus (PCR) 02/13/21 02/13/21 02/13/21 13:36 13:36 13:36 WBC RBC Hgb Hct MCV MCH RDW Lymph % (Auto) Lymph # (Auto) Seg Neutrophils % PT INR APTT Fibrinogen D-Dimer Heparin Anti-Xa Level ABG pH POC ABG pCO2 POC ABG pO2 ABG pO2 ABG O2 Saturation ABG Base Excess ABG Hemoglobin ABG Oxyhemoglobin ABG Sodium ABG Potassium ABG Glucose Oxyhemoglobin Carboxyhemoglobin Potassium Chloride Carbon Dioxide BUN Creatinine Glucose 176 H POC Glucose Lactic Acid Calcium Magnesium TIBC Ferritin 1667.0 H AST Lactate Dehydrogenase 713 H Total Creatine Kinase Troponin T C-Reactive Protein 30.70 H NT-Pro-B Natriuret Pep 3473 H Albumin Triglycerides TSH Arterial Blood Glucose Arterial Blood Ionized Calcium Urine WBC (Auto) Urine Creatinine Salicylates Acetaminophen Coronavirus (PCR) 02/13/21 02/13/21 02/13/21 14:18 16:27 16:27 WBC RBC Hgb Hct MCV MCH RDW Lymph % (Auto) Lymph # (Auto) Seg Neutrophils % PT INR APTT Fibrinogen D-Dimer Heparin Anti-Xa Level ABG pH 7.528 H POC ABG pCO2 POC ABG pO2 49.8 L ABG pO2 ABG O2 Saturation ABG Base Excess ABG Hemoglobin 11.8 L ABG Oxyhemoglobin 85.8 L ABG Sodium ABG Potassium ABG Glucose 180 H Oxyhemoglobin Carboxyhemoglobin Potassium Chloride Carbon Dioxide BUN Creatinine Glucose POC Glucose Lactic Acid 5.30 H* Calcium Magnesium TIBC Ferritin AST Lactate Dehydrogenase Total Creatine Kinase Troponin T 0.034 H D C-Reactive Protein NT-Pro-B Natriuret Pep Albumin Triglycerides 181 H TSH Arterial Blood Glucose 180 H Arterial Blood Ionized Calcium 3.7 L Urine WBC (Auto) Urine Creatinine Salicylates Acetaminophen Coronavirus (PCR) 02/13/21 02/13/21 02/13/21 16:27 18:39 18:39 WBC RBC Hgb Hct MCV MCH RDW Lymph % (Auto) Lymph # (Auto) Seg Neutrophils % PT 15.3 H INR 1.16 H APTT Fibrinogen D-Dimer Heparin Anti-Xa Level ABG pH POC ABG pCO2 POC ABG pO2 ABG pO2 ABG O2 Saturation ABG Base Excess ABG Hemoglobin ABG Oxyhemoglobin ABG Sodium ABG Potassium ABG Glucose Oxyhemoglobin Carboxyhemoglobin Potassium Chloride Carbon Dioxide BUN Creatinine Glucose POC Glucose Lactic Acid 3.80 H* Calcium Magnesium TIBC Ferritin AST Lactate Dehydrogenase Total Creatine Kinase Troponin T 0.033 H C-Reactive Protein NT-Pro-B Natriuret Pep Albumin Triglycerides TSH Arterial Blood Glucose Arterial Blood Ionized Calcium Urine WBC (Auto) Urine Creatinine Salicylates Acetaminophen Coronavirus (PCR) 02/13/21 02/13/21 02/14/21 21:00 21:27 03:54 WBC RBC Hgb Hct MCV MCH RDW Lymph % (Auto) Lymph # (Auto) Seg Neutrophils % PT INR APTT Fibrinogen D-Dimer Heparin Anti-Xa Level 0.96 H ABG pH POC ABG pCO2 POC ABG pO2 44.5 L ABG pO2 ABG O2 Saturation ABG Base Excess ABG Hemoglobin ABG Oxyhemoglobin 78.3 L ABG Sodium ABG Potassium ABG Glucose 181 H Oxyhemoglobin Carboxyhemoglobin Potassium Chloride Carbon Dioxide BUN Creatinine Glucose POC Glucose Lactic Acid Calcium Magnesium TIBC Ferritin AST Lactate Dehydrogenase Total Creatine Kinase Troponin T C-Reactive Protein NT-Pro-B Natriuret Pep Albumin Triglycerides TSH Arterial Blood Glucose 181 H Arterial Blood Ionized Calcium 4.2 L Urine WBC (Auto) 31.0 H Urine Creatinine Salicylates Acetaminophen Coronavirus (PCR) 02/14/21 02/14/21 02/14/21 03:54 10:40 10:40 WBC RBC Hgb Hct MCV MCH RDW Lymph % (Auto) Lymph # (Auto) Seg Neutrophils % PT INR APTT Fibrinogen D-Dimer 1007.53 H Heparin Anti-Xa Level ABG pH POC ABG pCO2 POC ABG pO2 ABG pO2 ABG O2 Saturation ABG Base Excess ABG Hemoglobin ABG Oxyhemoglobin ABG Sodium ABG Potassium ABG Glucose Oxyhemoglobin Carboxyhemoglobin Potassium Chloride Carbon Dioxide BUN 41 H Creatinine 2.4 H Glucose 210 H POC Glucose Lactic Acid Calcium 7.7 L Magnesium TIBC Ferritin 1148.0 H AST Lactate Dehydrogenase Total Creatine Kinase Troponin T C-Reactive Protein NT-Pro-B Natriuret Pep Albumin Triglycerides TSH Arterial Blood Glucose Arterial Blood Ionized Calcium Urine WBC (Auto) Urine Creatinine Salicylates Acetaminophen Coronavirus (PCR) 02/14/21 02/14/21 02/14/21 10:40 11:33 17:51 WBC RBC Hgb Hct MCV MCH RDW Lymph % (Auto) Lymph # (Auto) Seg Neutrophils % PT INR APTT Fibrinogen D-Dimer Heparin Anti-Xa Level ABG pH 7.285 L POC ABG pCO2 51.7 H POC ABG pO2 36.7 L ABG pO2 ABG O2 Saturation ABG Base Excess ABG Hemoglobin ABG Oxyhemoglobin 57.9 L ABG Sodium ABG Potassium ABG Glucose 310 H Oxyhemoglobin Carboxyhemoglobin Potassium Chloride Carbon Dioxide BUN Creatinine Glucose POC Glucose 265 H Lactic Acid Calcium Magnesium TIBC Ferritin AST Lactate Dehydrogenase 1381 H Total Creatine Kinase Troponin T C-Reactive Protein 36.70 H NT-Pro-B Natriuret Pep Albumin Triglycerides TSH Arterial Blood Glucose 310 H Arterial Blood Ionized Calcium 3.9 L Urine WBC (Auto) Urine Creatinine Salicylates Acetaminophen Coronavirus (PCR) 02/14/21 02/14/21 02/14/21 18:00 18:15 18:33 WBC RBC Hgb Hct MCV MCH RDW Lymph % (Auto) Lymph # (Auto) Seg Neutrophils % PT INR APTT Fibrinogen D-Dimer Heparin Anti-Xa Level 1.09 H ABG pH POC ABG pCO2 POC ABG pO2 41.4 L ABG pO2 ABG O2 Saturation ABG Base Excess ABG Hemoglobin ABG Oxyhemoglobin 70.5 L ABG Sodium ABG Potassium ABG Glucose 308 H Oxyhemoglobin Carboxyhemoglobin Potassium Chloride Carbon Dioxide BUN Creatinine Glucose POC Glucose 260 H Lactic Acid Calcium Magnesium TIBC Ferritin AST Lactate Dehydrogenase Total Creatine Kinase Troponin T C-Reactive Protein NT-Pro-B Natriuret Pep Albumin Triglycerides TSH Arterial Blood Glucose 308 H Arterial Blood Ionized Calcium 4.0 L Urine WBC (Auto) Urine Creatinine Salicylates Acetaminophen Coronavirus (PCR) 02/14/21 02/14/21 02/14/21 18:45 18:45 Unknown WBC RBC Hgb Hct MCV MCH RDW Lymph % (Auto) Lymph # (Auto) Seg Neutrophils % PT INR APTT Fibrinogen D-Dimer Heparin Anti-Xa Level ABG pH POC ABG pCO2 POC ABG pO2 ABG pO2 ABG O2 Saturation ABG Base Excess ABG Hemoglobin ABG Oxyhemoglobin ABG Sodium ABG Potassium ABG Glucose Oxyhemoglobin Carboxyhemoglobin Potassium Chloride Carbon Dioxide BUN Creatinine Glucose POC Glucose Lactic Acid 2.70 H* Calcium Magnesium TIBC Ferritin AST Lactate Dehydrogenase Total Creatine Kinase Troponin T C-Reactive Protein NT-Pro-B Natriuret Pep Albumin Triglycerides TSH Arterial Blood Glucose Arterial Blood Ionized Calcium Urine WBC (Auto) Urine Creatinine 80.0 H Salicylates Acetaminophen Coronavirus (PCR) Positive A 02/15/21 02/15/21 02/15/21 00:25 04:07 05:00 WBC 16.0 H RBC Hgb Hct MCV 77 L MCH 25 L RDW 16.1 H Lymph % (Auto) Lymph # (Auto) Seg Neutrophils % PT INR APTT Fibrinogen D-Dimer Heparin Anti-Xa Level ABG pH POC ABG pCO2 POC ABG pO2 53.2 L ABG pO2 ABG O2 Saturation ABG Base Excess ABG Hemoglobin ABG Oxyhemoglobin 85.1 L ABG Sodium ABG Potassium ABG Glucose 257 H Oxyhemoglobin Carboxyhemoglobin 0.4 L Potassium Chloride Carbon Dioxide BUN Creatinine Glucose POC Glucose 256 H Lactic Acid Calcium Magnesium TIBC Ferritin AST Lactate Dehydrogenase Total Creatine Kinase Troponin T C-Reactive Protein NT-Pro-B Natriuret Pep Albumin Triglycerides TSH Arterial Blood Glucose 257 H Arterial Blood Ionized Calcium 3.8 L Urine WBC (Auto) Urine Creatinine Salicylates Acetaminophen Coronavirus (PCR) 02/15/21 02/15/21 02/15/21 05:00 05:00 05:43 WBC RBC Hgb Hct MCV MCH RDW Lymph % (Auto) Lymph # (Auto) Seg Neutrophils % PT INR APTT Fibrinogen D-Dimer Heparin Anti-Xa Level 0.92 H ABG pH POC ABG pCO2 POC ABG pO2 ABG pO2 ABG O2 Saturation ABG Base Excess ABG Hemoglobin ABG Oxyhemoglobin ABG Sodium ABG Potassium ABG Glucose Oxyhemoglobin Carboxyhemoglobin Potassium Chloride Carbon Dioxide BUN 50 H Creatinine 3.2 H Glucose 247 H POC Glucose 253 H Lactic Acid Calcium 7.0 L Magnesium TIBC Ferritin AST Lactate Dehydrogenase Total Creatine Kinase Troponin T C-Reactive Protein NT-Pro-B Natriuret Pep Albumin Triglycerides TSH Arterial Blood Glucose Arterial Blood Ionized Calcium Urine WBC (Auto) Urine Creatinine Salicylates Acetaminophen Coronavirus (PCR) 02/15/21 02/15/21 02/15/21 12:11 15:36 23:29 WBC RBC Hgb Hct MCV MCH RDW Lymph % (Auto) Lymph # (Auto) Seg Neutrophils % PT INR APTT Fibrinogen D-Dimer Heparin Anti-Xa Level ABG pH POC ABG pCO2 POC ABG pO2 ABG pO2 ABG O2 Saturation ABG Base Excess ABG Hemoglobin ABG Oxyhemoglobin ABG Sodium ABG Potassium ABG Glucose Oxyhemoglobin Carboxyhemoglobin Potassium Chloride Carbon Dioxide BUN Creatinine Glucose POC Glucose 145 H 200 H 220 H Lactic Acid Calcium Magnesium TIBC Ferritin AST Lactate Dehydrogenase Total Creatine Kinase Troponin T C-Reactive Protein NT-Pro-B Natriuret Pep Albumin Triglycerides TSH Arterial Blood Glucose Arterial Blood Ionized Calcium Urine WBC (Auto) Urine Creatinine Salicylates Acetaminophen Coronavirus (PCR) 02/16/21 02/16/21 02/16/21 01:31 04:00 04:30 WBC RBC Hgb Hct MCV MCH RDW Lymph % (Auto) Lymph # (Auto) Seg Neutrophils % PT INR APTT Fibrinogen D-Dimer Heparin Anti-Xa Level ABG pH 7.243 L POC ABG pCO2 48.6 H POC ABG pO2 57.1 L ABG pO2 ABG O2 Saturation ABG Base Excess ABG Hemoglobin ABG Oxyhemoglobin 82.1 L ABG Sodium ABG Potassium ABG Glucose 287 H Oxyhemoglobin Carboxyhemoglobin Potassium Chloride Carbon Dioxide BUN 66 H Creatinine 4.0 H Glucose 277 H POC Glucose 241 H Lactic Acid Calcium 7.5 L Magnesium TIBC Ferritin AST Lactate Dehydrogenase Total Creatine Kinase Troponin T C-Reactive Protein NT-Pro-B Natriuret Pep Albumin Triglycerides 351 H TSH Arterial Blood Glucose 287 H Arterial Blood Ionized Calcium 4.0 L Urine WBC (Auto) Urine Creatinine Salicylates Acetaminophen Coronavirus (PCR) 02/16/21 02/16/21 02/16/21 05:06 08:00 10:10 WBC RBC Hgb Hct MCV MCH RDW Lymph % (Auto) Lymph # (Auto) Seg Neutrophils % PT INR APTT Fibrinogen D-Dimer Heparin Anti-Xa Level ABG pH 7.292 L POC ABG pCO2 POC ABG pO2 33.5 L 30.7 L ABG pO2 ABG O2 Saturation ABG Base Excess ABG Hemoglobin ABG Oxyhemoglobin 55.0 L 50.9 L ABG Sodium ABG Potassium 4.7 H 4.6 H ABG Glucose 249 H 215 H Oxyhemoglobin Carboxyhemoglobin 0.4 L Potassium Chloride Carbon Dioxide BUN Creatinine Glucose POC Glucose 242 H Lactic Acid Calcium Magnesium TIBC Ferritin AST Lactate Dehydrogenase Total Creatine Kinase Troponin T C-Reactive Protein NT-Pro-B Natriuret Pep Albumin Triglycerides TSH Arterial Blood Glucose 249 H 215 H Arterial Blood Ionized Calcium 3.7 L 3.7 L Urine WBC (Auto) Urine Creatinine Salicylates Acetaminophen Coronavirus (PCR) 02/16/21 02/16/21 02/16/21 10:31 10:31 10:31 WBC RBC Hgb Hct MCV MCH RDW Lymph % (Auto) Lymph # (Auto) Seg Neutrophils % PT INR APTT Fibrinogen D-Dimer 2846.74 H Heparin Anti-Xa Level ABG pH POC ABG pCO2 POC ABG pO2 ABG pO2 ABG O2 Saturation ABG Base Excess ABG Hemoglobin ABG Oxyhemoglobin ABG Sodium ABG Potassium ABG Glucose Oxyhemoglobin Carboxyhemoglobin Potassium Chloride Carbon Dioxide BUN Creatinine Glucose POC Glucose Lactic Acid Calcium Magnesium TIBC Ferritin 1164.0 H AST Lactate Dehydrogenase 1678 H Total Creatine Kinase Troponin T C-Reactive Protein 33.10 H NT-Pro-B Natriuret Pep Albumin Triglycerides TSH Arterial Blood Glucose Arterial Blood Ionized Calcium Urine WBC (Auto) Urine Creatinine Salicylates Acetaminophen Coronavirus (PCR) 02/16/21 02/16/21 02/16/21 10:45 12:06 13:23 WBC 20.3 H RBC 6.08 H Hgb 15.1 H D Hct 45.9 H D MCV 75 L MCH 25 L RDW 16.4 H Lymph % (Auto) Lymph # (Auto) Seg Neutrophils % PT INR APTT Fibrinogen D-Dimer Heparin Anti-Xa Level ABG pH 7.330 L POC ABG pCO2 POC ABG pO2 ABG pO2 37.9 L* ABG O2 Saturation 64.0 L ABG Base Excess -5.0 L ABG Hemoglobin 11.8 L ABG Oxyhemoglobin ABG Sodium ABG Potassium ABG Glucose Oxyhemoglobin 62.7 L Carboxyhemoglobin Potassium Chloride Carbon Dioxide BUN Creatinine Glucose POC Glucose 223 H Lactic Acid Calcium Magnesium TIBC Ferritin AST Lactate Dehydrogenase Total Creatine Kinase Troponin T C-Reactive Protein NT-Pro-B Natriuret Pep Albumin Triglycerides TSH Arterial Blood Glucose Arterial Blood Ionized Calcium Urine WBC (Auto) Urine Creatinine Salicylates Acetaminophen Coronavirus (PCR) 02/16/21 02/16/21 02/16/21 17:24 20:08 23:57 WBC RBC Hgb Hct MCV MCH RDW Lymph % (Auto) Lymph # (Auto) Seg Neutrophils % PT INR APTT Fibrinogen D-Dimer Heparin Anti-Xa Level 1.06 H ABG pH POC ABG pCO2 POC ABG pO2 ABG pO2 ABG O2 Saturation ABG Base Excess ABG Hemoglobin ABG Oxyhemoglobin ABG Sodium ABG Potassium ABG Glucose Oxyhemoglobin Carboxyhemoglobin Potassium Chloride Carbon Dioxide BUN Creatinine Glucose POC Glucose 272 H 245 H Lactic Acid Calcium Magnesium TIBC Ferritin AST Lactate Dehydrogenase Total Creatine Kinase Troponin T C-Reactive Protein NT-Pro-B Natriuret Pep Albumin Triglycerides TSH Arterial Blood Glucose Arterial Blood Ionized Calcium Urine WBC (Auto) Urine Creatinine Salicylates Acetaminophen Coronavirus (PCR) 02/17/21 02/17/21 02/17/21 04:00 04:30 04:30 WBC 12.5 H RBC Hgb 9.2 L D Hct 28.4 L D MCV 76 L MCH 25 L RDW 15.9 H Lymph % (Auto) Lymph # (Auto) Seg Neutrophils % PT INR APTT Fibrinogen D-Dimer Heparin Anti-Xa Level ABG pH POC ABG pCO2 28.7 L POC ABG pO2 59.0 L ABG pO2 ABG O2 Saturation ABG Base Excess ABG Hemoglobin 10.2 L ABG Oxyhemoglobin 90.3 L ABG Sodium 134.8 L ABG Potassium 3.3 L ABG Glucose 280 H Oxyhemoglobin Carboxyhemoglobin 0.1 L Potassium 3.4 L D Chloride Carbon Dioxide 20 L BUN 81 H Creatinine 5.1 H Glucose 260 H POC Glucose Lactic Acid Calcium 6.3 L D Magnesium TIBC Ferritin AST Lactate Dehydrogenase Total Creatine Kinase Troponin T C-Reactive Protein NT-Pro-B Natriuret Pep Albumin Triglycerides TSH Arterial Blood Glucose 280 H Arterial Blood Ionized Calcium 3.5 L Urine WBC (Auto) Urine Creatinine Salicylates Acetaminophen Coronavirus (PCR) 02/17/21 02/17/21 02/17/21 04:30 05:48 12:07 WBC RBC Hgb Hct MCV MCH RDW Lymph % (Auto) Lymph # (Auto) Seg Neutrophils % PT INR APTT Fibrinogen D-Dimer Heparin Anti-Xa Level ABG pH POC ABG pCO2 POC ABG pO2 ABG pO2 ABG O2 Saturation ABG Base Excess ABG Hemoglobin ABG Oxyhemoglobin ABG Sodium ABG Potassium ABG Glucose Oxyhemoglobin Carboxyhemoglobin Potassium Chloride Carbon Dioxide BUN Creatinine Glucose POC Glucose 237 H 280 H Lactic Acid Calcium Magnesium 2.40 H TIBC Ferritin AST Lactate Dehydrogenase Total Creatine Kinase Troponin T C-Reactive Protein NT-Pro-B Natriuret Pep Albumin Triglycerides TSH Arterial Blood Glucose Arterial Blood Ionized Calcium Urine WBC (Auto) Urine Creatinine Salicylates Acetaminophen Coronavirus (PCR) 02/17/21 02/17/21 02/17/21 12:59 15:51 15:51 WBC 12.8 H RBC 3.57 L Hgb 9.0 L Hct 27.0 L MCV 76 L MCH 25 L RDW 16.2 H Lymph % (Auto) Lymph # (Auto) Seg Neutrophils % PT 16.9 H INR 1.31 H APTT 90.0 H* Fibrinogen 859 H D-Dimer Heparin Anti-Xa Level ABG pH POC ABG pCO2 POC ABG pO2 ABG pO2 ABG O2 Saturation ABG Base Excess ABG Hemoglobin ABG Oxyhemoglobin ABG Sodium ABG Potassium ABG Glucose Oxyhemoglobin Carboxyhemoglobin Potassium Chloride Carbon Dioxide BUN Creatinine Glucose POC Glucose Lactic Acid Calcium Magnesium 2.70 H TIBC 231 L Ferritin AST Lactate Dehydrogenase Total Creatine Kinase Troponin T C-Reactive Protein NT-Pro-B Natriuret Pep Albumin Triglycerides TSH Arterial Blood Glucose Arterial Blood Ionized Calcium Urine WBC (Auto) Urine Creatinine Salicylates Acetaminophen Coronavirus (PCR) 02/17/21 02/17/21 02/17/21 15:51 17:27 23:22 WBC RBC Hgb Hct MCV MCH RDW Lymph % (Auto) Lymph # (Auto) Seg Neutrophils % PT INR APTT Fibrinogen D-Dimer Heparin Anti-Xa Level ABG pH POC ABG pCO2 POC ABG pO2 ABG pO2 ABG O2 Saturation ABG Base Excess ABG Hemoglobin ABG Oxyhemoglobin ABG Sodium ABG Potassium ABG Glucose Oxyhemoglobin Carboxyhemoglobin Potassium Chloride Carbon Dioxide 17 L BUN 88 H Creatinine 5.1 H Glucose 330 H POC Glucose 294 H 252 H Lactic Acid Calcium Magnesium TIBC Ferritin AST Lactate Dehydrogenase Total Creatine Kinase Troponin T C-Reactive Protein NT-Pro-B Natriuret Pep Albumin 3.0 L Triglycerides TSH Arterial Blood Glucose Arterial Blood Ionized Calcium Urine WBC (Auto) Urine Creatinine Salicylates Acetaminophen Coronavirus (PCR) 02/18/21 02/18/21 02/18/21 03:00 03:39 03:39 WBC 11.5 H RBC 3.18 L Hgb 8.1 L Hct 24.2 L MCV 76 L MCH 26 L RDW 15.8 H Lymph % (Auto) Lymph # (Auto) Seg Neutrophils % PT INR APTT Fibrinogen D-Dimer Heparin Anti-Xa Level ABG pH 7.315 L POC ABG pCO2 POC ABG pO2 66.9 L ABG pO2 ABG O2 Saturation ABG Base Excess ABG Hemoglobin 8.8 L ABG Oxyhemoglobin 90.2 L ABG Sodium ABG Potassium ABG Glucose 290 H Oxyhemoglobin Carboxyhemoglobin 0.3 L Potassium Chloride Carbon Dioxide BUN Creatinine Glucose POC Glucose Lactic Acid Calcium Magnesium 2.60 H TIBC Ferritin AST Lactate Dehydrogenase Total Creatine Kinase Troponin T C-Reactive Protein NT-Pro-B Natriuret Pep Albumin Triglycerides TSH Arterial Blood Glucose 290 H Arterial Blood Ionized Calcium 3.4 L Urine WBC (Auto) Urine Creatinine Salicylates Acetaminophen Coronavirus (PCR) 02/18/21 02/18/21 02/18/21 04:00 06:11 09:45 WBC RBC Hgb Hct MCV MCH RDW Lymph % (Auto) Lymph # (Auto) Seg Neutrophils % PT INR APTT Fibrinogen D-Dimer 1769.98 H Heparin Anti-Xa Level ABG pH POC ABG pCO2 POC ABG pO2 ABG pO2 ABG O2 Saturation ABG Base Excess ABG Hemoglobin ABG Oxyhemoglobin ABG Sodium ABG Potassium ABG Glucose Oxyhemoglobin Carboxyhemoglobin Potassium Chloride Carbon Dioxide 18 L BUN 95 H Creatinine 5.4 H Glucose 270 H POC Glucose 260 H Lactic Acid Calcium 6.3 L D Magnesium TIBC Ferritin AST Lactate Dehydrogenase Total Creatine Kinase Troponin T C-Reactive Protein NT-Pro-B Natriuret Pep Albumin Triglycerides 717 H TSH Arterial Blood Glucose Arterial Blood Ionized Calcium Urine WBC (Auto) Urine Creatinine Salicylates Acetaminophen Coronavirus (PCR) 02/18/21 02/18/21 02/18/21 09:45 09:45 11:16 WBC RBC Hgb Hct MCV MCH RDW Lymph % (Auto) Lymph # (Auto) Seg Neutrophils % PT INR APTT Fibrinogen D-Dimer Heparin Anti-Xa Level ABG pH POC ABG pCO2 POC ABG pO2 ABG pO2 ABG O2 Saturation ABG Base Excess ABG Hemoglobin ABG Oxyhemoglobin ABG Sodium ABG Potassium ABG Glucose Oxyhemoglobin Carboxyhemoglobin Potassium Chloride Carbon Dioxide BUN Creatinine Glucose POC Glucose 306 H Lactic Acid Calcium Magnesium TIBC Ferritin 902.0 H AST Lactate Dehydrogenase 784 H Total Creatine Kinase Troponin T C-Reactive Protein 20.30 H NT-Pro-B Natriuret Pep Albumin Triglycerides TSH Arterial Blood Glucose Arterial Blood Ionized Calcium Urine WBC (Auto) Urine Creatinine Salicylates Acetaminophen Coronavirus (PCR) Chest x-ray: image reviewed (resolution of right PTX; chest tube in situ) Allied health notes reviewed: nursing
--- NOTE | 2021-02-18 13:31 | Progress Note ---
Assessment and Plan Cultures: SARS CoV2 PCR: positive 02/13/2021 blood culture: no growth 02/13/2021 tracheal aspirate culture: Usual respiratory shivani Urine culture: no growth A/P: 70-year-old female with obesity hypoventilation syndrome, hypertension, hypothyroidism admitted to the hospital after she was found unresponsive: #PEA arrest: CODE BLUE 02/16/2021. #Septic shock: Secondary to below. #Bilateral pneumonia secondary to COVID-19. Severe disease. S/P abx. #Acute hypoxic respiratory failure: Secondary to COVID-19. On the vent. #SONIA: Renally adjust antibiotics. #Mild transaminitis: Likely from sepsis. #Possible UTI: culture with no growth. Recs: -Continue steroids per ICU -Completed empiric antibiotics: Ceftriaxone, azithromycin x 5 days. Remains off pressors. WBC down to 11.5. -Given progressive renal failure, not a candidate for Remdesivir -Procalcitonin significantly elevated, not an Actemra candidate -extremely poor prognosis ID will sign off. Please re-consult if needed. Andra Sol MD, FACP [facility] ([facility] O: [phone] F: [phone] Subjective Date of service: 02/18/21 Principal diagnosis: AHRF; ARDS; Pneumonia; PUI COVID-19; OHS; SONIA; Hyperkalemia; AMS Interval history: Afebrile. Remains on the vent, 100% FiO2, 20 of PEEP. Remains off pressors. WBC down to 11.5. Objective - Exam Narrative Exam: Physical Exam (reviewed in chart to minimize risk of transmission) Constitutional: deferred Head, Ears, Nose: deferred Eyes: deferred Neck: deferred Oral: deferred Cardiovascular: deferred Respiratory: deferred GI: deferred Musculoskeletal: deferred Skin: deferred Hem/Lymphatic: deferred Psych: deferred Neurological: deferred - Constitutional Vitals: Vital Signs Temp Pulse Resp BP Pulse Ox 98.3 F 60 28 H 138/59 94 02/18/21 11:46 02/18/21 12:33 02/18/21 10:45 02/18/21 12:33 02/18/21 12:33 Temperature -Last 24 Hours Temperature 98.3 F Temperature 98.1 F Temperature 97.6 F Temperature 97.2 F Temperature 97.9 F - Labs CBC & Chem 7: 02/18/21 03:39 02/18/21 04:00 Labs: Abnormal lab results 02/17/21 02/17/21 02/17/21 Range/Units 12:59 15:51 15:51 WBC 12.8 H (4.5-11.0) K/mm3 RBC 3.57 L (3.65-5.03) M/mm3 Hgb 9.0 L (10.1-14.3) gm/dl Hct 27.0 L (30.3-42.9) % MCV 76 L (79-97) fl MCH 25 L (28-32) pg RDW 16.2 H (13.2-15.2) % PT 16.9 H (12.2-14.9) Sec. INR 1.31 H (0.87-1.13) APTT 90.0 H* (24.2-36.6) Sec. Fibrinogen 859 H (211-480) mg/dl D-Dimer (0-234) ng/mlDDU ABG pH (7.320-7.450) POC ABG pO2 (83-108) mmHg ABG Hemoglobin (12.0-17.5) ABG Oxyhemoglobin (94-98) ABG Glucose (65-95) mg/dL Carboxyhemoglobin (0.5-1.5) Carbon Dioxide (22-30) mmol/L BUN (7-17) mg/dL Creatinine (0.6-1.2) mg/dL Glucose (65-100) mg/dL POC Glucose (70-105) mg/dL Calcium (8.4-10.2) mg/dL Magnesium 2.70 H (1.7-2.3) mg/dL TIBC 231 L (250-450) mcg/dL Ferritin (10.0-200.0) ng/mL Lactate Dehydrogenase (91-180) units/L C-Reactive Protein (0.00-1.30) mg/dL Albumin (3.9-5) g/dL Triglycerides (2-149) mg/dL Arterial Blood Glucose (65-95) mg/dL Arterial Blood Ionized Calcium (4.6-5.3) mg/dL 08/26/21 08/26/21 08/26/21 Range/Units 15:51 17:27 23:22 WBC (4.5-11.0) K/mm3 RBC (3.65-5.03) M/mm3 Hgb (10.1-14.3) gm/dl Hct (30.3-42.9) % MCV (79-97) fl MCH (28-32) pg RDW (13.2-15.2) % PT (12.2-14.9) Sec. INR (0.87-1.13) APTT (24.2-36.6) Sec. Fibrinogen (211-480) mg/dl D-Dimer (0-234) ng/mlDDU ABG pH (7.320-7.450) POC ABG pO2 (83-108) mmHg ABG Hemoglobin (12.0-17.5) ABG Oxyhemoglobin (94-98) ABG Glucose (65-95) mg/dL Carboxyhemoglobin (0.5-1.5) Carbon Dioxide 17 L (22-30) mmol/L BUN 88 H (7-17) mg/dL Creatinine 5.1 H (0.6-1.2) mg/dL Glucose 330 H (65-100) mg/dL POC Glucose 294 H 252 H (70-105) mg/dL Calcium (8.4-10.2) mg/dL Magnesium (1.7-2.3) mg/dL TIBC (250-450) mcg/dL Ferritin (10.0-200.0) ng/mL Lactate Dehydrogenase (91-180) units/L C-Reactive Protein (0.00-1.30) mg/dL Albumin 3.0 L (3.9-5) g/dL Triglycerides (2-149) mg/dL Arterial Blood Glucose (65-95) mg/dL Arterial Blood Ionized Calcium (4.6-5.3) mg/dL 02/18/21 02/18/21 02/18/21 Range/Units 03:00 03:39 03:39 WBC 11.5 H (4.5-11.0) K/mm3 RBC 3.18 L (3.65-5.03) M/mm3 Hgb 8.1 L (10.1-14.3) gm/dl Hct 24.2 L (30.3-42.9) % MCV 76 L (79-97) fl MCH 26 L (28-32) pg RDW 15.8 H (13.2-15.2) % PT (12.2-14.9) Sec. INR (0.87-1.13) APTT (24.2-36.6) Sec. Fibrinogen (211-480) mg/dl D-Dimer (0-234) ng/mlDDU ABG pH 7.315 L (7.320-7.450) POC ABG pO2 66.9 L (83-108) mmHg ABG Hemoglobin 8.8 L (12.0-17.5) ABG Oxyhemoglobin 90.2 L (94-98) ABG Glucose 290 H (65-95) mg/dL Carboxyhemoglobin 0.3 L (0.5-1.5) Carbon Dioxide (22-30) mmol/L BUN (7-17) mg/dL Creatinine (0.6-1.2) mg/dL Glucose (65-100) mg/dL POC Glucose (70-105) mg/dL Calcium (8.4-10.2) mg/dL Magnesium 2.60 H (1.7-2.3) mg/dL TIBC (250-450) mcg/dL Ferritin (10.0-200.0) ng/mL Lactate Dehydrogenase (91-180) units/L C-Reactive Protein (0.00-1.30) mg/dL Albumin (3.9-5) g/dL Triglycerides (2-149) mg/dL Arterial Blood Glucose 290 H (65-95) mg/dL Arterial Blood Ionized Calcium 3.4 L (4.6-5.3) mg/dL 02/18/21 02/18/21 02/18/21 Range/Units 04:00 06:11 09:45 WBC (4.5-11.0) K/mm3 RBC (3.65-5.03) M/mm3 Hgb (10.1-14.3) gm/dl Hct (30.3-42.9) % MCV (79-97) fl MCH (28-32) pg RDW (13.2-15.2) % PT (12.2-14.9) Sec. INR (0.87-1.13) APTT (24.2-36.6) Sec. Fibrinogen (211-480) mg/dl D-Dimer 1769.98 H (0-234) ng/mlDDU ABG pH (7.320-7.450) POC ABG pO2 (83-108) mmHg ABG Hemoglobin (12.0-17.5) ABG Oxyhemoglobin (94-98) ABG Glucose (65-95) mg/dL Carboxyhemoglobin (0.5-1.5) Carbon Dioxide 18 L (22-30) mmol/L BUN 95 H (7-17) mg/dL Creatinine 5.4 H (0.6-1.2) mg/dL Glucose 270 H (65-100) mg/dL POC Glucose 260 H (70-105) mg/dL Calcium 6.3 L D (8.4-10.2) mg/dL Magnesium (1.7-2.3) mg/dL TIBC (250-450) mcg/dL Ferritin (10.0-200.0) ng/mL Lactate Dehydrogenase (91-180) units/L C-Reactive Protein (0.00-1.30) mg/dL Albumin (3.9-5) g/dL Triglycerides 717 H (2-149) mg/dL Arterial Blood Glucose (65-95) mg/dL Arterial Blood Ionized Calcium (4.6-5.3) mg/dL 02/18/21 02/18/21 02/18/21 Range/Units 09:45 09:45 11:16 WBC (4.5-11.0) K/mm3 RBC (3.65-5.03) M/mm3 Hgb (10.1-14.3) gm/dl Hct (30.3-42.9) % MCV (79-97) fl MCH (28-32) pg RDW (13.2-15.2) % PT (12.2-14.9) Sec. INR (0.87-1.13) APTT (24.2-36.6) Sec. Fibrinogen (211-480) mg/dl D-Dimer (0-234) ng/mlDDU ABG pH (7.320-7.450) POC ABG pO2 (83-108) mmHg ABG Hemoglobin (12.0-17.5) ABG Oxyhemoglobin (94-98) ABG Glucose (65-95) mg/dL Carboxyhemoglobin (0.5-1.5) Carbon Dioxide (22-30) mmol/L BUN (7-17) mg/dL Creatinine (0.6-1.2) mg/dL Glucose (65-100) mg/dL POC Glucose 306 H (70-105) mg/dL Calcium (8.4-10.2) mg/dL Magnesium (1.7-2.3) mg/dL TIBC (250-450) mcg/dL Ferritin 902.0 H (10.0-200.0) ng/mL Lactate Dehydrogenase 784 H (91-180) units/L C-Reactive Protein 20.30 H (0.00-1.30) mg/dL Albumin (3.9-5) g/dL Triglycerides (2-149) mg/dL Arterial Blood Glucose (65-95) mg/dL Arterial Blood Ionized Calcium (4.6-5.3) mg/dL
--- NOTE | 2021-02-18 14:06 | Progress Note ---
Assessment and Plan Assessment and plan: 70 YO Female with Obesity Hypoventilation Syndrome, HTN, Hypothyroidism presents to ED for evaluation. Patient is intubated and on ventilatory support at the time my evaluation is unable to write history. Patient history provided by EMS staff, ED staff, as well as the patient family was made available by telephone for interview. As per daughter the patient was in her usual state of health around bedtime which was 2100 hrs. The patient was found down and unresponsive this morning. EMS was notified and upon arrival the patient was found to be in respiratory distress with a pulse oximetry of 50%. The patient was transported to [facility] for further care and evaluation of the aforementioned symptoms. The patient was seen and evaluated in the emergency department. All lab and imaging studies reviewed. The patient was found to have a pulse oximetry in the 60s which is consistent with acute hypoxemic respiratory failure. The patient was deemed unable to protect her airway and was intubated and placed on ventilatory support. The patient was found to have a blood pressure of 69/33. The patient was also found to have pneumonia on chest x-ray which was complicated by septic shock, metabolic acidosis, toxic metabolic encephalopathy, acute kidney injury. Patient admitted to ICU due to multiple organ system failure. Critical care care team consulted in ED. Patient initiated on sepsis protocol as well as coronavirus protocol. Patient found to have poor prognosis. Advanced care planning conducted in ED. No prior admission for review. No medication listed at time of admission for reconciliation. NEURO: metabolic encephalopathy; sedated keep sedated to raas goal neg 2-3 SAT daily as allowed with oxygenation NOK daugther CV- hypotension due to sepsis/sedation; bradycardia in part due to hypoxia; hx HTN MAP > 65 SB-SR has had zina requiring dopamine NE PRN no echo on record Resp- ARDS; acute hypoxic resp failure due to covid19 pna; hx hypoventilation syndrome intubated 8- mechanical vent- see RT notes for changes ACPRV [id number] follow ABG and chest xray pneumo on AM xray - CCM placed right CT, now to neg 20 cm suction with no airleak and non tidaling post placement xray noted GI: risk protein cynthia malnutrition TF nutrition following pepcid bowel reg BM overnight guaic ordered --- please send rogelio - SONIA/ ATN/ metabolic acidosis nephrology following planning for HD trialysis placed 8-25 net pos over 2 L over 24 hours trend Cr 2 on admit Trend electrolytes strict I/O daily weight Heme- coagulopathic with covid; on AC VTE heparin gtt oozy from [facility] trialysis site see afternoon event note trend CBC and coags ID- covid19 pna with resulting sepsis covid pos 8- ID following azithro and ceftriaxone no remdes given SONIA no acterma given inc procal methylpred per ID afebrile trend WBC and temp curve trend inflammatory markers follow culture data Endo -hx DM with hyperglycemia; morbid obesity; hx hypothyrodism glargine 10U HS SSI avoid hypoglycemia TSH high on 02/13; T3 in AM ->restarted on home levothyroxine The high probability of a clinically significant, sudden or life threatening deterioration of the all] system(s) required my full and direct attention, intervention and personal management. The aggregate critical care time was [90] minutes. This time is in addition to time spent performing reported procedures but includes the following: [x] Data Review and interpretation [x] Patient assessment and monitoring of vital signs [x] Documentation [x] Medication orders and management History Interval history: 70 YO Female with Obesity Hypoventilation Syndrome, HTN, Hypothyroidism presents to ED for evaluation. Patient is intubated and on ventilatory support at the time my evaluation is unable to write history. Patient history provided by EMS staff, ED staff, as well as the patient family was made available by telephone for interview. As per daughter the patient was in her usual state of health around bedtime which was 2100 hrs. The patient was found down and unresponsive this morning. EMS was notified and upon arrival the patient was found to be in respiratory distress with a pulse oximetry of 50%. The patient was transported to [facility] for further care and evaluation of the aforementioned symptoms. The patient was seen and evaluated in the emergency department. All lab and imaging studies reviewed. The patient was found to have a pulse oximetry in the 60s which is consistent with acute hypoxemic respiratory failure. The patient was deemed unable to protect her airway and was intubated and placed on ventilatory support. The patient was found to have a blood pressure of 69/33. The patient was also found to have pneumonia on chest x-ray which was complicated by septic shock, metabolic acidosis, toxic metabolic encephalopathy, acute kidney injury. Patient admitted to ICU due to multiple organ system failure. Critical care care team consulted in ED. Patient initiated on sepsis protocol as well as coronavirus protocol. Patient found to have poor prognosis. Advanced care planning conducted in ED. No prior admission for review. No medication listed at time of admission for reconciliation. 02-13 Admitted through ER 02-14 proned; when supined this AM became hypoxic- took some time to recover 02/15 desaturated when supined this AM- now recovered 02/16: Saturation issues->increased sedation which resolved it today, Nephro to initiate HD in 24-48 hours, trialysis placed. 02/[address] for pneumo placed 02/18: Hospitalist Physical - Constitutional Vitals: Temp Pulse Resp BP Pulse Ox 98.3 F 64 28 H 140/66 95 02/18/21 11:46 02/18/21 13:30 02/18/21 13:30 02/18/21 13:30 02/18/21 13:30 General appearance: Present: well-nourished HEART Score - HEART Score Troponin: Troponin T 0.033 ng/mL (0.00-0.029) H 02/13/21 18:39 Results - Labs CBC & Chem 7: 02/18/21 03:39 02/18/21 04:00 Labs: Laboratory Last Values WBC 11.5 K/mm3 (4.5-11.0) H 02/18/21 03:39 RBC 3.18 M/mm3 (3.65-5.03) L 02/18/21 03:39 Hgb 8.1 gm/dl (10.1-14.3) L 02/18/21 03:39 Hct 24.2 % (30.3-42.9) L 02/18/21 03:39 MCV 76 fl (79-97) L 02/18/21 03:39 MCH 26 pg (28-32) L 02/18/21 03:39 MCHC 33 % (30-34) 02/18/21 03:39 RDW 15.8 % (13.2-15.2) H 02/18/21 03:39 Plt Count 220 K/mm3 (140-440) 02/18/21 03:39 Lymph % (Auto) 5.9 % (13.4-35.0) L 02/13/21 13:28 [place] % (Auto) 4.5 % (0.0-7.3) 02/13/21 13:28 Eos % (Auto) 0.0 % (0.0-4.3) 02/13/21 13:28 Baso % (Auto) 0.3 % (0.0-1.8) 02/13/21 13:28 Lymph # (Auto) 0.3 K/mm3 (1.2-5.4) L 02/13/21 13:28 [place] # (Auto) 0.3 K/mm3 (0.0-0.8) 02/13/21 13:28 Eos # (Auto) 0.0 K/mm3 (0.0-0.4) 02/13/21 13:28 Baso # (Auto) 0.0 K/mm3 (0.0-0.1) 02/13/21 13:28 Seg Neutrophils % 89.3 % (40.0-70.0) H 02/13/21 13:28 Seg Neutrophils # 5.2 K/mm3 (1.8-7.7) 02/13/21 13:28 PT 16.9 Sec. (12.2-14.9) H 02/17/21 15:51 INR 1.31 (0.87-1.13) H 02/17/21 15:51 APTT 90.0 Sec. (24.2-36.6) H* 02/17/21 15:51 Fibrinogen 859 mg/dl (211-480) H 02/17/21 15:51 D-Dimer 1769.98 ng/mlDDU (0-234) H 02/18/21 09:45 Heparin Anti-Xa Level 0.70 U.I./ml (0.3-0.7) 02/17/21 06:30 ABG pH 7.315 (7.320-7.450) L 02/18/21 03:00 POC ABG pCO2 34.3 mmHg (32.0-48.0) 02/18/21 03:00 ABG pCO2 39.8 mm Hg 02/16/21 10:45 POC ABG pO2 66.9 mmHg (83-108) L 02/18/21 03:00 ABG pO2 37.9 mm Hg (80.0-90.0) L* 02/16/21 10:45 POC ABG HCO3 17.1 02/18/21 03:00 ABG HCO3 20.5 mmol/L (20.0-26.0) 02/16/21 10:45 ABG O2 Saturation 90.6 (0-100) 02/18/21 03:00 ABG O2 Content 10.4 (0.0-44) 02/16/21 10:45 POC ABG Base Excess -8.3 02/18/21 03:00 ABG Base Excess -5.0 mmol/L (-2.0-3.0) L 02/16/21 10:45 ABG Hemoglobin 8.8 (12.0-17.5) L 02/18/21 03:00 ABG Oxyhemoglobin 90.2 (94-98) L 02/18/21 03:00 ABG Carboxyhemoglobin 1.2 % (0.0-5.0) 02/16/21 10:45 ABG Methemoglobin 0.1 (0.0-1.5) 02/18/21 03:00 ABG Sodium 137.7 mmol/L (136.0-145.0) 02/18/21 03:00 ABG Potassium 4.0 mmol/L (3.40-4.50) 02/18/21 03:00 ABG Chloride 105.0 mmol/L (98-107) 02/18/21 03:00 ABG Glucose 290 mg/dL (65-95) H 02/18/21 03:00 Oxyhemoglobin 62.7 % (95.0-99.0) L 02/16/21 10:45 Carboxyhemoglobin 0.3 (0.5-1.5) L 02/18/21 03:00 FiO2 100 % 02/16/21 10:45 FiO2 % 100.0 02/18/21 03:00 Sodium 140 mmol/L (137-145) 02/18/21 04:00 Potassium 4.2 mmol/L (3.6-5.0) 02/18/21 04:00 Chloride 101.3 mmol/L (98-107) 02/18/21 04:00 Carbon Dioxide 18 mmol/L (22-30) L 02/18/21 04:00 Anion Gap 25 mmol/L 02/18/21 04:00 BUN 95 mg/dL (7-17) H 02/18/21 04:00 Creatinine 5.4 mg/dL (0.6-1.2) H 02/18/21 04:00 Estimated GFR 10 ml/min 02/18/21 04:00 BUN/Creatinine Ratio 18 % 02/18/21 04:00 Glucose 270 mg/dL (65-100) H 02/18/21 04:00 POC Glucose 306 mg/dL (70-105) H 02/18/21 11:16 Lactic Acid 1.90 mmol/L (0.7-2.0) 02/14/21 22:33 Calcium 6.3 mg/dL (8.4-10.2) L D 02/18/21 04:00 Phosphorus 4.40 mg/dL (2.5-4.5) D 02/18/21 03:39 Magnesium 2.60 mg/dL (1.7-2.3) H 02/18/21 03:39 Iron 42 ug/dL (37-170) 02/17/21 12:59 TIBC 231 mcg/dL (250-450) L 02/17/21 12:59 % Saturation 18.18 % 02/17/21 12:59 Transferrin 193 mg/dl (192-382) 02/17/21 12:59 Ferritin 902.0 ng/mL (10.0-200.0) H 02/18/21 09:45 Total Bilirubin 0.30 mg/dL (0.1-1.2) 02/17/21 15:51 Direct Bilirubin < 0.2 mg/dL (0-0.2) 02/13/21 13:28 Indirect Bilirubin 0.2 mg/dL 02/13/21 13:28 AST 29 units/L (5-40) 02/17/21 15:51 ALT 18 units/L (7-56) 02/17/21 15:51 Alkaline Phosphatase 66 units/L (35-129) 02/17/21 15:51 Ammonia 48.0 umol/L (25-60) 02/13/21 13:28 Lactate Dehydrogenase 784 units/L (91-180) H 02/18/21 09:45 Total Creatine Kinase 1572 units/L (30-135) H 02/13/21 13:28 Troponin T 0.033 ng/mL (0.00-0.029) H 02/13/21 18:39 C-Reactive Protein 20.30 mg/dL (0.00-1.30) H 02/18/21 09:45 NT-Pro-B Natriuret Pep 3473 pg/mL (0-900) H 02/13/21 13:36 Total Protein 7.0 g/dL (6.3-8.2) 02/17/21 15:51 Albumin 3.0 g/dL (3.9-5) L 02/17/21 15:51 Albumin/Globulin Ratio 0.8 % 02/17/21 15:51 Triglycerides 717 mg/dL (2-149) H 02/18/21 04:00 Cholesterol 130 mg/dL (50-199) 02/13/21 16:27 LDL Cholesterol Direct 68 mg/dL (50-130) 02/13/21 16:27 HDL Cholesterol 40 mg/dL (40-59) 02/13/21 16:27 Cholesterol/HDL Ratio 3.25 % 02/13/21 16:27 Lipase 35 units/L (13-60) 02/13/21 13:28 Procalcitonin 58.83 ng/mL (<0.15) 02/14/21 10:40 TSH 8.530 mlU/mL (0.270-4.200) H 02/13/21 13:28 Arterial Blood Glucose 290 mg/dL (65-95) H 02/18/21 03:00 Arterial Blood Ionized Calcium 3.4 mg/dL (4.6-5.3) L 02/18/21 03:00 Urine Color Laura (Yellow) 02/13/21 21: Urine Turbidity Turbid (Clear) 02/13/21 21: Urine pH 5.0 (5.0-7.0) 02/13/21 21: Ur Specific [place] 1.025 (1.003-1.030) 02/13/21 21: Urine Protein >500 mg/dL (Negative) 02/13/21 21: Urine Glucose (UA) Neg mg/dL (Negative) 02/13/21 21: Urine Ketones Neg mg/dL (Negative) 02/13/21 21: Urine Blood Lg (Negative) 02/13/21 21: Urine Nitrite Neg (Negative) 02/13/21 21:27 Urine Bilirubin Neg (Negative) 02/13/21 21:27 Urine Urobilinogen < 2.0 mg/dL (<2.0) 02/13/21 21:27 Ur Leukocyte Esterase Neg (Negative) 02/13/21 21:27 Urine WBC (Auto) 31.0 /HPF (0.0-6.0) H 02/13/21 21:27 Urine RBC (Auto) 8.0 /HPF (0.0-6.0) 02/13/21 21:27 U Epithel Cells (Auto) 4.0 /HPF (0-13.0) 02/13/21 21:27 Urine Bacteria (Auto) 2+ /HPF (Negative) 02/13/21 21:27 Urine WBC Clumps 3+ /HPF 02/13/21 21:27 Hyaline Casts 5 /LPF 02/13/21 21:27 Urine Mucus 2+ /HPF 02/13/21 21:27 Urine Yeast (Budding) 3+ /HPF 02/13/21 21:27 Urine Creatinine 80.0 mg/dL (0.1-20.0) H 02/14/21 18:45 Urine Sodium 33 mmol/L 02/14/21 18:45 Salicylates < 0.3 mg/dL (2.8-20.0) L 02/13/21 13:28 Urine Opiates Screen Negative 02/13/21 21:27 Urine Methadone Screen Negative 02/13/21 21:27 Acetaminophen 5.0 ug/mL (10.0-30.0) L 02/13/21 13:28 Ur Barbiturates Screen Negative 02/13/21 21:27 Ur Phencyclidine Scrn Negative 02/13/21 21:27 Ur Amphetamines Screen Negative 02/13/21 21:27 U Benzodiazepines Scrn Negative 02/13/21 21:27 Urine Cocaine Screen Negative 02/13/21 21:27 U Marijuana (THC) Screen Negative 02/13/21 21:27 Drugs of Abuse Note Disclamer 02/13/21 21:27 Plasma/Serum Alcohol < 0.01 % (0-0.07) 02/13/21 13:28 Coronavirus (PCR) Positive (Negative) A 02/14/21 Unknown Hepatitis A IgM Ab Non-reactive (NonReactive) 02/17/21 12:59 Hep Bs Antigen Nonreactive (Negative) 02/17/21 12:59 Hep B Core IgM Ab Non-reactive (NonReactive) 02/17/21 12:59 Hepatitis C Antibody Non-reactive (NonReactive) 02/17/21 12:59 Blood Type B POSITIVE 02/13/21 13:31 Antibody Screen Negative 02/13/21 13:31 Microbiology: Microbiology 02/17/21 08:45 Gatric Aspirate Gastric Occult Blood - Final 02/13/21 13:48 Peripheral/Venous Blood Culture - Preliminary NO GROWTH AFTER 4 DAYS 02/13/21 13:28 Peripheral/Venous Blood Culture - Preliminary NO GROWTH AFTER 4 DAYS Cho/IV: Voiding Method Indwelling Catheter Active Medications - Current Medications Current Medications: Generic Name Dose Route Start Last Admin Trade Name Freq PRN Reason Stop Dose Admin Acetaminophen 650 mg 02/13/21 15:22 Acetaminophen 325 Mg Tab PO Q6H PRN Pain, Mild (1-3) Acetaminophen 650 mg 02/13/21 15:22 02/13/21 20:30 Acetaminophen 650 Mg Rect Supp CO 650 mg Q6H PRN Administration Pain MILD(1-3)/Fever >100.5/ZACARIAS Albumin Human 25 gm 02/17/21 14:00 02/18/21 13:15 Albumin Human 25% (25 Gm/100 Ml) Inj IV 02/19/21 06:01 25 gm Q8HR RUDY Administration Albumin Human 25 gm 02/17/21 11:14 Albumin Human 25% (25 Gm/100 Ml) Inj IV AFTAB PRN Hypotension Albuterol 2.5 mg 02/13/21 15:22 Albuterol 2.5 Mg/3 Ml Nebu IH Q3H PRN Shortness Of Breath Lipase/Protease/Amylase 1 each 02/14/21 10:43 Lipase 10,500/Protease 25,000/Amylase 43,750 (Units) Dr Iqbal FEEDTUBE PRN PRN For Clogged Feeding Tube Ascorbic Acid 500 mg 02/13/21 22:00 02/18/21 10:12 Ascorbic Acid 500 Mg Tab PO 500 mg BID RUDY Administration Cholecalciferol 1,000 unit 02/13/21 16:00 02/18/21 10:12 Cholecalciferol (Vit D3) 1000 Unit (25 Mcg) Tab PO 1,000 unit QDAY RUDY Administration Dextrose 50 ml 02/14/21 11:15 Dextrose 50% In Water (25gm) 50 Ml Syringe IV Q30MIN PRN Hypoglycemia Protocol Famotidine 20 mg 02/14/21 10:00 02/18/21 10:12 Famotidine 20 Mg/2 Ml Inj IV 20 mg DAILY RUDY Administration Fentanyl 50 mcg 02/13/21 16:05 Fentanyl 100 Mcg/2 Ml Inj IV Q10MIN PRN ANALGESIA Heparin Sodium (Porcine) 4,400 unit 02/14/21 13:18 Heparin 10,000 Units/10 Ml Vial 40 unit/kg (4400 unit) IV Q6H PRN Anti-Xa Assay < 0.1 units/ml Hydrophilic Ointment 1 applic 02/13/21 22:52 Lip Therapy Vaseline TP Q2HR PRN Dry Lips Heparin Sodium/Sodium Chloride 25,000 unit in 500 mls @ 30 mls/hr 02/13/21 17:00 02/17/21 17:15 Heparin/ 0.45% Nacl-25,000 Unit/500 Ml IV Infused TITR RUDY Titration Protocol 1,500 UNITS/HR Fentanyl Citrate 2,000 mcg in 100 mls @ 5.55 mls/hr 02/13/21 17:00 02/18/21 10:13 Fentanyl Drip Premix IV 4 mcg/kg/hr TITR RUDY 22.2 mls/hr Administration Protocol 1 MCG/KG/HR Norepinephrine 4 mg in 250 mls @ 75 mls/hr 02/13/21 18:00 02/14/21 01:55 Levophed Drip 4 Mg/Ns 250 Ml IV 0 mcg/min TITR RUDY 0 mls/hr Titration Protocol 20 MCG/MIN Propofol 1,000 mg in 100 mls @ 3.33 mls/hr 02/13/21 23:00 02/18/21 13:19 Diprivan 10 Mg/Ml IV 50 mcg/kg/min TITR RUDY 33.3 mls/hr Administration Protocol 5 MCG/KG/MIN Midazolam HCl 100 mg/ Sodium 100 mls @ 1 mls/hr 02/14/21 09:00 02/18/21 10:13 Chloride IV 6 mg/hr TITR RUDY 6 mls/hr Administration Protocol 1 MG/HR Dopamine HCl/Dextrose 800 mg in 250 mls @ 4.163 mls/hr 02/14/21 09:00 02/18/21 11:15 Intropin Drip 800 Mg/D5w 250 Ml IV 10 mcg/kg/min TITR RUDY 20.813 mls/hr Titration Protocol 2 MCG/KG/MIN Sodium Chloride 100 mls @ 999 mls/hr 02/17/21 11:14 Nacl 0.9% IV AFTAB PRN Hypotension Insulin Glargine 25 units 02/18/21 22:00 Insulin Glargine 100 Units/Ml SUB-Q QHS RUDY Insulin Human Regular 0 units 02/14/21 12:00 02/18/21 13:15 Insulin Regular, Human 100 Units/1 Ml SUB-Q 8 units Q6H RUDY Administration Protocol Methylprednisolone Sodium Succinate 40 mg 02/18/21 06:00 02/18/21 13:15 Methylprednisolone Sod Succinate 40 Mg/1 Ml Inj IV 40 mg Q8H RUDY Administration Midazolam HCl 2 mg 02/14/21 08:24 Midazolam 2 Mg/2 Ml Inj IV Q10MIN PRN Sedation Multi-Ingred Cream/Lotion/Oil/Oint 1 applic 02/13/21 16:05 Mineral Oil/Petrolatum, White Ophth Oint 3.5 Gm OU Q4H PRN Dry Eye(s) Senna/Docusate Sodium 1 tab 02/13/21 22:00 02/18/21 10:12 Sennosides/Docusate Sodium 8.6/50 Mg Tab FEEDTUBE 1 tab BID RUDY Administration Simple Syrup 15 ml 02/14/21 10:43 Simple Syrup 15 Ml FEEDTUBE PRN PRN Hypoglycemia Simple Syrup 30 ml 02/14/21 10:43 Simple Syrup 15 Ml FEEDTUBE PRN PRN Hypoglycemia Sodium Bicarbonate 325 mg 02/14/21 10:43 Sodium Bicarbonate 325 Mg Tab FEEDTUBE PRN PRN For Clogged Feeding Tube Sodium Chloride 10 ml 02/13/21 22:00 02/18/21 10:12 Sodium Chloride 0.9% 10 Ml Flush Syringe IV 10 ml BID RUDY Administration Sodium Chloride 10 ml 02/13/21 15:22 Sodium Chloride 0.9% 10 Ml Flush Syringe IV PRN PRN LINE FLUSH Zinc Sulfate 220 mg 02/13/21 22:00 02/18/21 10:12 Zinc Sulfate 220 Mg Cap PO 220 mg BID RUDY Administration Nutrition/Malnutrition Assess - Dietary Evaluation Nutrition/Malnutrition Findings: Nutrition Notes Start: 02/14/21 10:34 Freq: Status: Active Protocol: Document 02/18/21 11:53 MK (Rec: 02/18/21 12:12 [id number]) Nutrition Notes Initial or Follow up Brief Note Current Diagnosis Acute Kidney Injury, Hypertension,Respiratory Failure Other Pertinent Diagnosis SIRS, pneu, COVID PUI Current Diet Nepro 1.8 at 30 ml/hr Labs/Tests BUN 95 Cr 5.4 BG 270 Pertinent Medications Dopamine Propofol at 33.3 ml/hr (879 kcal) Solu Medrol [place] Body Weight (kg) 0 Weight Status Morbidly Obese Subjective/Other Information TF off this AM. Per RN, pt with 250ml gastric residuals. Per ASPEN guidelines, hold TF only if gastric residuals are greater than >250ml. RN to restart TF at 10 ml/hr and recheck for tolerance. Nutrition Intervention Follow-Up By: 02/21/21 Additional Comments F/u: TF at goal, tolerance and propofol rate
--- NOTE | 2021-02-18 14:13 | XRay Report ---
CHEST 1 VIEW 1:39 PM INDICATION: Pneumothorax. COMPARISON: Earlier today. FINDINGS: Support devices: Unchanged. Heart: Stable. Lungs/Pleura: Bilateral pulmonary opacities are stable. No definite residual right pneumothorax is id entified. Diffuse soft tissue gas is again noted. IMPRESSION: 1. No residual right pneumothorax is identified. Evaluation is limited due to overlying extensive sub cutaneous emphysema in the right upper chest/supraclavicular region. Signer Name: Zacarias Ballard MD Signed: 02/18/2021 2:09 PM Workstation Name: [id number]
--- NOTE | 2021-02-18 17:06 | Event Note ---
Date: 02/18/21 pt seen and examined, chart reviewed, full consult dictated - pt presented after PEA arrest, intubated, COVID pneumonia, pneumothorax requiring chest tube now being seen for decrease h/h - no reported h/o GI bleed in the past - per staff no signs GI bleed noted, only bleeding from vasc cath site - doubt active GI blood loss - PPI iv bid - stool guiac - no plans to scope - will follow for now
--- NOTE | 2021-02-18 17:58 | Progress Note ---
<RADHASHANTEL H. - Last Filed: 02/18/21 18:05> Assessment and Plan Assessment and plan: 70 YO Female with Obesity Hypoventilation Syndrome, HTN, Hypothyroidism admitted with COVID-19 pneumonia, sepsis, acute respiratory failure A/P NEURO: metabolic encephalopathy; sedated -RASS goal neg 2-3 -Delirium -Sedated with fentanyl, propofol, Versed -SAT daily as allowed with oxygenation -NOK daugther CV- hypotension due to sepsis/sedation; bradycardia in part due to hypoxia; hx HTN -MAP > 65 -SB-SR -Dopamine drip -Vasopressor norepinephrine, wean as tolerated -Blood pressure monitor per protocol Resp- ARDS; acute hypoxic resp failure due to covid19 pna; hx hypoventilation syndrome -Intubated 02-13 -Mechanical vent- see RT notes for changes -02/18 ABG and CXR reviewed -Right chest tube to wall suction -SPO2 monitoring -VAP bundle -Daily ABGs and CXR GI: risk protein cynthia malnutrition -TF -Nutrition following -guic positive -GI consulted, appreciate recommendations - PPI iv bid - SONIA/ ATN/ metabolic acidosis -nephrology following -HD initated 02/16 -HD per nephrology -Past 24-hour +1727 -Cho catheter -Trend BMP -strict I/O -daily weight Heme- coagulopathic with covid -VTE heparin gtt d/c d/t bleeding -SCDs to bilateral lower extremities while in bed -trend CBC and coags ID- covid19 pna with resulting sepsis -covid pos 02-14 -ID following -s/p azithro and ceftriaxone -Patient started on deformity severe given SONIA -Patient is a candidate for Actemra given procalcitonin -Methylprednisone -Trend COVID-19 inflammatory markers -Droplet/precautions -Anticoagulation per protocol as tolerated -Follow culture data Endo -hx DM with hyperglycemia; morbid obesity; hx hypothyrodism -Lantus nightly, titrate as needed -SSI -Avoid hypoglycemia -Restarted home levothyroxine -Accu-Cheks every 6 The high probability of a clinically significant, sudden or life threatening deterioration of the all] system(s) required my full and direct attention, intervention and personal management. The aggregate critical care time was [60] minutes. This time is in addition to time spent performing reported procedures but includes the following: [x] Data Review and interpretation [x] Patient assessment and monitoring of vital signs [x] Documentation [x] Medication orders and management Disposition Plan: icu Total Time Spent with Patient (Minutes): 60 History Interval history: 70 YO Female with Obesity Hypoventilation Syndrome, HTN, Hypothyroidism presents to ED for evaluation. Patient is intubated and on ventilatory support at the time my evaluation is unable to write history. Patient history provided by EMS staff, ED staff, as well as the patient family was made available by telephone for interview. As per daughter the patient was in her usual state of health around bedtime which was 2100 hrs. The patient was found down and unresponsive this morning. EMS was notified and upon arrival the patient was found to be in respiratory distress with a pulse oximetry of 50%. The patient was transported to [facility] for further care and evaluation of the aforementioned symptoms. The patient was seen and evaluated in the emergency department. All lab and imaging studies reviewed. The patient was found to have a pulse oximetry in the 60s which is consistent with acute hypoxemic respiratory failure. The patient was deemed unable to protect her airway and was intubated and placed on ventilatory support. The patient was found to have a blood pressure of 69/33. The patient was also found to have pneumonia on chest x-ray which was complicated by septic shock, metabolic acidosis, toxic metabolic encephalopathy, acute kidney injury. Patient admitted to ICU due to multiple organ system failure. Critical care care team consulted in ED. Patient initiated on sepsis protocol as well as coronavirus protocol. Patient found to have poor prognosis. Advanced care planning conducted in ED. No prior admission for review. No medication listed at time of admission for reconciliation. 02-13 Admitted through ER 02-14 proned; when supined this AM became hypoxic- took some time to recover 02/15 desaturated when supined this AM- now recovered 02/16: Saturation issues->increased sedation which resolved it today, Nephro to initiate HD in 24-48 hours, trialysis placed. 02/[address] for pneumo placed 02/18: PPI changed to IV twice daily, hep panel sent today. D-dimer greater than 10,000 so repeat Doppler ultrasound ordered. Patient remains on BiPAP therapy and unable to tolerate high flow nasal cannula. A-line removed due to discoloration of fingers. Hospitalist Physical - Constitutional Vitals: Temp Pulse Resp BP Pulse Ox 99.3 F 64 28 H 139/61 96 02/18/21 16:32 02/18/21 16:38 02/18/21 16:30 02/18/21 16:38 02/18/21 17:03 General appearance: Present: well-nourished, obese - EENT Eyes: Present: PERRL ENT: dentition normal - Neck Neck: Present: supple - Respiratory Respiratory effort: normal Respiratory: bilateral: diminished - Cardiovascular Rhythm: regular - Extremities Extremities: no ischemia, pulses intact, pulses symmetrical Peripheral Pulses: within normal limits - Abdominal General gastrointestinal: soft, non-tender - Integumentary Integumentary: Present: warm, dry - Psychiatric Psychiatric: other (sedated) - Neurologic Neurologic: other (sedated) HEART Score - HEART Score Troponin: Troponin T 0.033 ng/mL (0.00-0.029) H 02/13/21 18:39 Results - Labs CBC & Chem 7: 02/18/21 03:39 02/18/21 04:00 Labs: Laboratory Last Values WBC 11.5 K/mm3 (4.5-11.0) H 02/18/21 03:39 RBC 3.18 M/mm3 (3.65-5.03) L 02/18/21 03:39 Hgb 8.1 gm/dl (10.1-14.3) L 02/18/21 03:39 Hct 24.2 % (30.3-42.9) L 02/18/21 03:39 MCV 76 fl (79-97) L 02/18/21 03:39 MCH 26 pg (28-32) L 02/18/21 03:39 MCHC 33 % (30-34) 02/18/21 03:39 RDW 15.8 % (13.2-15.2) H 02/18/21 03:39 Plt Count 220 K/mm3 (140-440) 02/18/21 03:39 Lymph % (Auto) 5.9 % (13.4-35.0) L 02/13/21 13:28 [place] % (Auto) 4.5 % (0.0-7.3) 02/13/21 13:28 Eos % (Auto) 0.0 % (0.0-4.3) 02/13/21 13:28 Baso % (Auto) 0.3 % (0.0-1.8) 02/13/21 13:28 Lymph # (Auto) 0.3 K/mm3 (1.2-5.4) L 02/13/21 13:28 [place] # (Auto) 0.3 K/mm3 (0.0-0.8) 02/13/21 13:28 Eos # (Auto) 0.0 K/mm3 (0.0-0.4) 02/13/21 13:28 Baso # (Auto) 0.0 K/mm3 (0.0-0.1) 02/13/21 13:28 Seg Neutrophils % 89.3 % (40.0-70.0) H 02/13/21 13:28 Seg Neutrophils # 5.2 K/mm3 (1.8-7.7) 02/13/21 13:28 PT 16.9 Sec. (12.2-14.9) H 02/17/21 15:51 INR 1.31 (0.87-1.13) H 02/17/21 15:51 APTT 90.0 Sec. (24.2-36.6) H* 02/17/21 15:51 Fibrinogen 859 mg/dl (211-480) H 02/17/21 15:51 D-Dimer 1769.98 ng/mlDDU (0-234) H 02/18/21 09:45 Heparin Anti-Xa Level 0.70 U.I./ml (0.3-0.7) 02/17/21 06:30 ABG pH 7.315 (7.320-7.450) L 02/18/21 03:00 POC ABG pCO2 34.3 mmHg (32.0-48.0) 02/18/21 03:00 ABG pCO2 39.8 mm Hg 02/16/21 10:45 POC ABG pO2 66.9 mmHg (83-108) L 02/18/21 03:00 ABG pO2 37.9 mm Hg (80.0-90.0) L* 02/16/21 10:45 POC ABG HCO3 17.1 02/18/21 03:00 ABG HCO3 20.5 mmol/L (20.0-26.0) 02/16/21 10:45 ABG O2 Saturation 90.6 (0-100) 02/18/21 03:00 ABG O2 Content 10.4 (0.0-44) 02/16/21 10:45 POC ABG Base Excess -8.3 02/18/21 03:00 ABG Base Excess -5.0 mmol/L (-2.0-3.0) L 02/16/21 10:45 ABG Hemoglobin 8.8 (12.0-17.5) L 02/18/21 03:00 ABG Oxyhemoglobin 90.2 (94-98) L 02/18/21 03:00 ABG Carboxyhemoglobin 1.2 % (0.0-5.0) 02/16/21 10:45 ABG Methemoglobin 0.1 (0.0-1.5) 02/18/21 03:00 ABG Sodium 137.7 mmol/L (136.0-145.0) 02/18/21 03:00 ABG Potassium 4.0 mmol/L (3.40-4.50) 02/18/21 03:00 ABG Chloride 105.0 mmol/L (98-107) 02/18/21 03:00 ABG Glucose 290 mg/dL (65-95) H 02/18/21 03:00 Oxyhemoglobin 62.7 % (95.0-99.0) L 02/16/21 10:45 Carboxyhemoglobin 0.3 (0.5-1.5) L 02/18/21 03:00 FiO2 100 % 02/16/21 10:45 FiO2 % 100.0 02/18/21 03:00 Sodium 140 mmol/L (137-145) 02/18/21 04:00 Potassium 4.2 mmol/L (3.6-5.0) 02/18/21 04:00 Chloride 101.3 mmol/L (98-107) 02/18/21 04:00 Carbon Dioxide 18 mmol/L (22-30) L 02/18/21 04:00 Anion Gap 25 mmol/L 02/18/21 04:00 BUN 95 mg/dL (7-17) H 02/18/21 04:00 Creatinine 5.4 mg/dL (0.6-1.2) H 02/18/21 04:00 Estimated GFR 10 ml/min 02/18/21 04:00 BUN/Creatinine Ratio 18 % 02/18/21 04:00 Glucose 270 mg/dL (65-100) H 02/18/21 04:00 POC Glucose 306 mg/dL (70-105) H 02/18/21 11:16 Lactic Acid 1.90 mmol/L (0.7-2.0) 02/14/21 22:33 Calcium 6.3 mg/dL (8.4-10.2) L D 02/18/21 04:00 Phosphorus 4.40 mg/dL (2.5-4.5) D 02/18/21 03:39 Magnesium 2.60 mg/dL (1.7-2.3) H 02/18/21 03:39 Iron 42 ug/dL (37-170) 02/17/21 12:59 TIBC 231 mcg/dL (250-450) L 02/17/21 12:59 % Saturation 18.18 % 02/17/21 12:59 Transferrin 193 mg/dl (192-382) 02/17/21 12:59 Ferritin 902.0 ng/mL (10.0-200.0) H 02/18/21 09:45 Total Bilirubin 0.30 mg/dL (0.1-1.2) 02/17/21 15:51 Direct Bilirubin < 0.2 mg/dL (0-0.2) 02/13/21 13:28 Indirect Bilirubin 0.2 mg/dL 02/13/21 13:28 AST 29 units/L (5-40) 02/17/21 15:51 ALT 18 units/L (7-56) 02/17/21 15:51 Alkaline Phosphatase 66 units/L (35-129) 02/17/21 15:51 Ammonia 48.0 umol/L (25-60) 02/13/21 13:28 Lactate Dehydrogenase 784 units/L (91-180) H 02/18/21 09:45 Total Creatine Kinase 1572 units/L (30-135) H 02/13/21 13:28 Troponin T 0.033 ng/mL (0.00-0.029) H 02/13/21 18:39 C-Reactive Protein 20.30 mg/dL (0.00-1.30) H 02/18/21 09:45 NT-Pro-B Natriuret Pep 3473 pg/mL (0-900) H 02/13/21 13:36 Total Protein 7.0 g/dL (6.3-8.2) 02/17/21 15:51 Albumin 3.0 g/dL (3.9-5) L 02/17/21 15:51 Albumin/Globulin Ratio 0.8 % 02/17/21 15:51 Triglycerides 717 mg/dL (2-149) H 02/18/21 04:00 Cholesterol 130 mg/dL (50-199) 02/13/21 16:27 LDL Cholesterol Direct 68 mg/dL (50-130) 02/13/21 16:27 HDL Cholesterol 40 mg/dL (40-59) 02/13/21 16:27 Cholesterol/HDL Ratio 3.25 % 02/13/21 16:27 Lipase 35 units/L (13-60) 02/13/21 13:28 Procalcitonin 58.83 ng/mL (<0.15) 02/14/21 10:40 TSH 8.530 mlU/mL (0.270-4.200) H 02/13/21 13:28 Arterial Blood Glucose 290 mg/dL (65-95) H 02/18/21 03:00 Arterial Blood Ionized Calcium 3.4 mg/dL (4.6-5.3) L 02/18/21 03:00 Urine Color Laura (Yellow) 02/13/21 21: Urine Turbidity Turbid (Clear) 02/13/21 21: Urine pH 5.0 (5.0-7.0) 02/13/21 21: Ur Specific [place] 1.025 (1.003-1.030) 02/13/21 21: Urine Protein >500 mg/dL (Negative) 02/13/21 21: Urine Glucose (UA) Neg mg/dL (Negative) 02/13/21 21: Urine Ketones Neg mg/dL (Negative) 02/13/21 21: Urine Blood Lg (Negative) 02/13/21 21: Urine Nitrite Neg (Negative) 02/13/21 21: Urine Bilirubin Neg (Negative) 02/13/21 21: Urine Urobilinogen < 2.0 mg/dL (<2.0) 02/13/21 21:27 Ur Leukocyte Esterase Neg (Negative) 02/13/21 21:27 Urine WBC (Auto) 31.0 /HPF (0.0-6.0) H 02/13/21 21:27 Urine RBC (Auto) 8.0 /HPF (0.0-6.0) 02/13/21 21:27 U Epithel Cells (Auto) 4.0 /HPF (0-13.0) 02/13/21 21:27 Urine Bacteria (Auto) 2+ /HPF (Negative) 02/13/21 21:27 Urine WBC Clumps 3+ /HPF 02/13/21 21:27 Hyaline Casts 5 /LPF 02/13/21 21:27 Urine Mucus 2+ /HPF 02/13/21 21:27 Urine Yeast (Budding) 3+ /HPF 02/13/21 21:27 Urine Creatinine 80.0 mg/dL (0.1-20.0) H 02/14/21 18:45 Urine Sodium 33 mmol/L 02/14/21 18:45 Salicylates < 0.3 mg/dL (2.8-20.0) L 02/13/21 13:28 Urine Opiates Screen Negative 02/13/21 21:27 Urine Methadone Screen Negative 02/13/21 21:27 Acetaminophen 5.0 ug/mL (10.0-30.0) L 02/13/21 13:28 Ur Barbiturates Screen Negative 02/13/21 21:27 Ur Phencyclidine Scrn Negative 02/13/21 21:27 Ur Amphetamines Screen Negative 02/13/21 21:27 U Benzodiazepines Scrn Negative 02/13/21 21:27 Urine Cocaine Screen Negative 02/13/21 21:27 U Marijuana (THC) Screen Negative 02/13/21 21:27 Drugs of Abuse Note Disclamer 02/13/21 21:27 Plasma/Serum Alcohol < 0.01 % (0-0.07) 02/13/21 13:28 Coronavirus (PCR) Positive (Negative) A 02/14/21 Unknown Hepatitis A IgM Ab Non-reactive (NonReactive) 02/17/21 12:59 Hep Bs Antigen Nonreactive (Negative) 02/17/21 12:59 Hep B Core IgM Ab Non-reactive (NonReactive) 02/17/21 12:59 Hepatitis C Antibody Non-reactive (NonReactive) 02/17/21 12:59 Blood Type B POSITIVE 02/13/21 13:31 Antibody Screen Negative 02/13/21 13:31 Microbiology: Microbiology 02/13/21 13:48 Peripheral/Venous Blood Culture - Final NO GROWTH AFTER 5 DAYS 02/13/21 13:28 Peripheral/Venous Blood Culture - Final NO GROWTH AFTER 5 DAYS 02/17/21 08:45 Gatric Aspirate Gastric Occult Blood - Final Cho/IV: Voiding Method Indwelling Catheter Active Medications - Current Medications Current Medications: Generic Name Dose Route Start Last Admin Trade Name Freq PRN Reason Stop Dose Admin Acetaminophen 650 mg 02/13/21 15:22 Acetaminophen 325 Mg Tab PO Q6H PRN Pain, Mild (1-3) Acetaminophen 650 mg 02/13/21 15:22 02/13/21 20:30 Acetaminophen 650 Mg Rect Supp IN 650 mg Q6H PRN Administration Pain MILD(1-3)/Fever >100.5/ZACARIAS Albumin Human 25 gm 02/17/21 14:00 02/18/21 13:15 Albumin Human 25% (25 Gm/100 Ml) Inj IV 02/19/21 06:01 25 gm Q8HR RUDY Administration Albumin Human 25 gm 02/17/21 11:14 Albumin Human 25% (25 Gm/100 Ml) Inj IV AFTAB PRN Hypotension Albuterol 2.5 mg 02/13/21 15:22 Albuterol 2.5 Mg/3 Ml Nebu IH Q3H PRN Shortness Of Breath Lipase/Protease/Amylase 1 each 02/14/21 10:43 Lipase 10,500/Protease 25,000/Amylase 43,750 (Units) Dr Iqbal FEEDTUBE PRN PRN For Clogged Feeding Tube Ascorbic Acid 500 mg 02/13/21 22:00 02/18/21 10:12 Ascorbic Acid 500 Mg Tab PO 500 mg BID RUDY Administration Cholecalciferol 1,000 unit 02/13/21 16:00 02/18/21 10:12 Cholecalciferol (Vit D3) 1000 Unit (25 Mcg) Tab PO 1,000 unit QDAY RUDY Administration Dextrose 50 ml 02/14/21 11:15 Dextrose 50% In Water (25gm) 50 Ml Syringe IV Q30MIN PRN Hypoglycemia Protocol Famotidine 20 mg 02/14/21 10:00 02/18/21 10:12 Famotidine 20 Mg/2 Ml Inj IV 20 mg DAILY RUDY Administration Fentanyl 50 mcg 02/13/21 16:05 Fentanyl 100 Mcg/2 Ml Inj IV Q10MIN PRN ANALGESIA Heparin Sodium (Porcine) 4,400 unit 02/14/21 13:18 Heparin 10,000 Units/10 Ml Vial 40 unit/kg (4400 unit) IV Q6H PRN Anti-Xa Assay < 0.1 units/ml Hydrophilic Ointment 1 applic 02/13/21 22:52 Lip Therapy Vaseline TP Q2HR PRN Dry Lips Heparin Sodium/Sodium Chloride 25,000 unit in 500 mls @ 30 mls/hr 02/13/21 17:00 02/17/21 17:15 Heparin/ 0.45% Nacl-25,000 Unit/500 Ml IV Infused TITR RUDY Titration Protocol 1,500 UNITS/HR Fentanyl Citrate 2,000 mcg in 100 mls @ 5.55 mls/hr 02/13/21 17:00 02/18/21 14:45 Fentanyl Drip Premix IV 4 mcg/kg/hr TITR RUDY 22.2 mls/hr Administration Protocol 1 MCG/KG/HR Norepinephrine 4 mg in 250 mls @ 75 mls/hr 02/13/21 18:00 02/14/21 01:55 Levophed Drip 4 Mg/Ns 250 Ml IV 0 mcg/min TITR RUDY 0 mls/hr Titration Protocol 20 MCG/MIN Propofol 1,000 mg in 100 mls @ 3.33 mls/hr 02/13/21 23:00 02/18/21 13:19 Diprivan 10 Mg/Ml IV 50 mcg/kg/min TITR RUDY 33.3 mls/hr Administration Protocol 5 MCG/KG/MIN Midazolam HCl 100 mg/ Sodium 100 mls @ 1 mls/hr 02/14/21 09:00 02/18/21 10:13 Chloride IV 6 mg/hr TITR RUDY 6 mls/hr Administration Protocol 1 MG/HR Dopamine HCl/Dextrose 800 mg in 250 mls @ 4.163 mls/hr 02/14/21 09:00 02/18/21 17:55 Intropin Drip 800 Mg/D5w 250 Ml IV 10 mcg/kg/min TITR RUDY 20.813 mls/hr Administration Protocol 2 MCG/KG/MIN Sodium Chloride 100 mls @ 999 mls/hr 02/17/21 11:14 Nacl 0.9% IV AFTAB PRN Hypotension Insulin Glargine 25 units 02/18/21 22:00 Insulin Glargine 100 Units/Ml SUB-Q QHS RUDY Insulin Human Regular 0 units 02/14/21 12:00 02/18/21 13:15 Insulin Regular, Human 100 Units/1 Ml SUB-Q 8 units Q6H RUDY Administration Protocol Methylprednisolone Sodium Succinate 40 mg 02/18/21 06:00 02/18/21 13:15 Methylprednisolone Sod Succinate 40 Mg/1 Ml Inj IV 40 mg Q8H RUDY Administration Midazolam HCl 2 mg 02/14/21 08:24 Midazolam 2 Mg/2 Ml Inj IV Q10MIN PRN Sedation Multi-Ingred Cream/Lotion/Oil/Oint 1 applic 02/13/21 16:05 Mineral Oil/Petrolatum, White Ophth Oint 3.5 Gm OU Q4H PRN Dry Eye(s) Pantoprazole Sodium 40 mg 02/18/21 22:00 Pantoprazole 40 Mg Inj IV BID RUDY Senna/Docusate Sodium 1 tab 02/13/21 22:00 02/18/21 10:12 Sennosides/Docusate Sodium 8.6/50 Mg Tab FEEDTUBE 1 tab BID RUDY Administration Simple Syrup 15 ml 02/14/21 10:43 Simple Syrup 15 Ml FEEDTUBE PRN PRN Hypoglycemia Simple Syrup 30 ml 02/14/21 10:43 Simple Syrup 15 Ml FEEDTUBE PRN PRN Hypoglycemia Sodium Bicarbonate 325 mg 02/14/21 10:43 Sodium Bicarbonate 325 Mg Tab FEEDTUBE PRN PRN For Clogged Feeding Tube Sodium Chloride 10 ml 02/13/21 22:00 02/18/21 10:12 Sodium Chloride 0.9% 10 Ml Flush Syringe IV 10 ml BID RUDY Administration Sodium Chloride 10 ml 02/13/21 15:22 Sodium Chloride 0.9% 10 Ml Flush Syringe IV PRN PRN LINE FLUSH Zinc Sulfate 220 mg 02/13/21 22:00 02/18/21 10:12 Zinc Sulfate 220 Mg Cap PO 220 mg BID RUDY Administration Nutrition/Malnutrition Assess - Dietary Evaluation Nutrition/Malnutrition Findings: Nutrition Notes Start: 02/14/21 10:34 Freq: Status: Active Protocol: Document 02/18/21 11:53 (Rec: 02/18/21 12:12 CARLITA [id number]) Nutrition Notes Initial or Follow up Brief Note Current Diagnosis Acute Kidney Injury, Hypertension,Respiratory Failure Other Pertinent Diagnosis SIRS, pneu, COVID PUI Current Diet Nepro 1.8 at 30 ml/hr Labs/Tests BUN 95 Cr 5.4 BG 270 Pertinent Medications Dopamine Propofol at 33.3 ml/hr (879 kcal) Solu Medrol [place] Body Weight (kg) 0 Weight Status Morbidly Obese Subjective/Other Information TF off this AM. Per RN, pt with 250ml gastric residuals. Per ASPEN guidelines, hold TF only if gastric residuals are greater than >250ml. RN to restart TF at 10 ml/hr and recheck for tolerance. Nutrition Intervention Follow-Up By: 02/21/21 Additional Comments F/u: TF at goal, tolerance and propofol rate <CELINA MASTERSON - Last Filed: 02/19/21 14:28> Assessment and Plan Assessment and plan: I saw and evaluated the patient. Discussed with the nurse practitioner and agree with their findings and plan as documented in this note. Hospitalist Physical - Constitutional Vitals: Temp Pulse Resp BP Pulse Ox 97.6 F 70 28 H 122/64 70 L 02/19/21 08:33 02/19/21 12:00 02/19/21 13:53 02/19/21 12:00 02/19/21 12:00 HEART Score - HEART Score Troponin: Troponin T 0.033 ng/mL (0.00-0.029) H 02/13/21 18:39 Results - Labs CBC & Chem 7: 02/19/21 04:25 02/19/21 08:05 Labs: Laboratory Last Values WBC 13.6 K/mm3 (4.5-11.0) H 02/19/21 04:25 RBC 2.99 M/mm3 (3.65-5.03) L 02/19/21 04:25 Hgb 7.6 gm/dl (10.1-14.3) L 02/19/21 04:25 Hct 22.8 % (30.3-42.9) L 02/19/21 04:25 MCV 76 fl (79-97) L 02/19/21 04:25 MCH 25 pg (28-32) L 02/19/21 04:25 MCHC 33 % (30-34) 02/19/21 04:25 RDW 16.0 % (13.2-15.2) H 02/19/21 04:25 Plt Count 212 K/mm3 (140-440) 02/19/21 04:25 Lymph % (Auto) 5.9 % (13.4-35.0) L 02/13/21 13:28 [place] % (Auto) 4.5 % (0.0-7.3) 02/13/21 13:28 Eos % (Auto) 0.0 % (0.0-4.3) 02/13/21 13:28 Baso % (Auto) 0.3 % (0.0-1.8) 02/13/21 13:28 Lymph # (Auto) 0.3 K/mm3 (1.2-5.4) L 02/13/21 13:28 [place] # (Auto) 0.3 K/mm3 (0.0-0.8) 02/13/21 13:28 Eos # (Auto) 0.0 K/mm3 (0.0-0.4) 02/13/21 13:28 Baso # (Auto) 0.0 K/mm3 (0.0-0.1) 02/13/21 13:28 Seg Neutrophils % 89.3 % (40.0-70.0) H 02/13/21 13:28 Seg Neutrophils # 5.2 K/mm3 (1.8-7.7) 02/13/21 13:28 PT 16.9 Sec. (12.2-14.9) H 02/17/21 15:51 INR 1.31 (0.87-1.13) H 02/17/21 15:51 APTT 90.0 Sec. (24.2-36.6) H* 02/17/21 15:51 Fibrinogen 859 mg/dl (211-480) H 02/17/21 15:51 D-Dimer 1769.98 ng/mlDDU (0-234) H 02/18/21 09:45 Heparin Anti-Xa Level < 0.10 U.I./ml (0.3-0.7) L 02/19/21 04:25 ABG pH 7.406 (7.320-7.450) 02/19/21 04:00 POC ABG pCO2 34.3 mmHg (32.0-48.0) 02/19/21 04:00 ABG pCO2 39.8 mm Hg 02/16/21 10:45 POC ABG pO2 59.8 mmHg (83-108) L 02/19/21 04:00 ABG pO2 37.9 mm Hg (80.0-90.0) L* 02/16/21 10:45 POC ABG HCO3 21.1 02/19/21 04:00 ABG HCO3 20.5 mmol/L (20.0-26.0) 02/16/21 10:45 ABG O2 Saturation 89.6 (0-100) 02/19/21 04:00 ABG O2 Content 10.4 (0.0-44) 02/16/21 10:45 POC ABG Base Excess -3.2 02/19/21 04:00 ABG Base Excess -5.0 mmol/L (-2.0-3.0) L 02/16/21 10:45 ABG Hemoglobin 8.0 (12.0-17.5) L 02/19/21 04:00 ABG Oxyhemoglobin 88.6 (94-98) L 02/19/21 04:00 ABG Carboxyhemoglobin 1.2 % (0.0-5.0) 02/16/21 10:45 ABG Methemoglobin 0.3 (0.0-1.5) 02/19/21 04:00 ABG Sodium 136.8 mmol/L (136.0-145.0) 02/19/21 04:00 ABG Potassium 3.7 mmol/L (3.40-4.50) 02/19/21 04:00 ABG Chloride 103.0 mmol/L (98-107) 02/19/21 04:00 ABG Glucose 340 mg/dL (65-95) H 02/19/21 04:00 Oxyhemoglobin 62.7 % (95.0-99.0) L 02/16/21 10:45 Carboxyhemoglobin 0.8 (0.5-1.5) 02/19/21 04:00 FiO2 100 % 02/16/21 10:45 FiO2 % 100.0 02/19/21 04:00 Sodium 137 mmol/L (137-145) 02/19/21 08:05 Potassium 3.9 mmol/L (3.6-5.0) 02/19/21 08:05 Chloride 97.1 mmol/L (98-107) L 02/19/21 08:05 Carbon Dioxide 22 mmol/L (22-30) 02/19/21 08:05 Anion Gap 22 mmol/L 02/19/21 08:05 BUN 72 mg/dL (7-17) H 02/19/21 08:05 Creatinine 4.0 mg/dL (0.6-1.2) H 02/19/21 08:05 Estimated GFR 13 ml/min 02/19/21 08:05 BUN/Creatinine Ratio 18 % 02/19/21 08:05 Glucose 346 mg/dL (65-100) H 02/19/21 08:05 POC Glucose 306 mg/dL (70-105) H 02/19/21 12:37 Lactic Acid 1.90 mmol/L (0.7-2.0) 02/14/21 22:33 Calcium 7.5 mg/dL (8.4-10.2) L 02/19/21 08:05 Phosphorus 5.00 mg/dL (2.5-4.5) H 02/19/21 04:25 Magnesium 2.40 mg/dL (1.7-2.3) H 02/19/21 04:25 Iron 42 ug/dL (37-170) 02/17/21 12:59 TIBC 231 mcg/dL (250-450) L 02/17/21 12:59 % Saturation 18.18 % 02/17/21 12:59 Transferrin 193 mg/dl (192-382) 02/17/21 12:59 Ferritin 902.0 ng/mL (10.0-200.0) H 02/18/21 09:45 Total Bilirubin 0.60 mg/dL (0.1-1.2) 02/19/21 04:25 Direct Bilirubin < 0.2 mg/dL (0-0.2) 02/13/21 13:28 Indirect Bilirubin 0.2 mg/dL 02/13/21 13:28 AST 31 units/L (5-40) 02/19/21 04:25 ALT 20 units/L (7-56) 02/19/21 04:25 Alkaline Phosphatase 84 units/L (35-129) 02/19/21 04:25 Ammonia 48.0 umol/L (25-60) 02/13/21 13:28 Lactate Dehydrogenase 784 units/L (91-180) H 02/18/21 09:45 Total Creatine Kinase 1572 units/L (30-135) H 02/13/21 13:28 Troponin T 0.033 ng/mL (0.00-0.029) H 02/13/21 18:39 C-Reactive Protein 20.30 mg/dL (0.00-1.30) H 02/18/21 09:45 NT-Pro-B Natriuret Pep 3473 pg/mL (0-900) H 02/13/21 13:36 Total Protein 7.3 g/dL (6.3-8.2) 02/19/21 04:25 Albumin 3.8 g/dL (3.9-5) L 02/19/21 04:25 Albumin/Globulin Ratio 1.1 % 02/19/21 04:25 Triglycerides 717 mg/dL (2-149) H 02/18/21 04:00 Cholesterol 130 mg/dL (50-199) 02/13/21 16:27 LDL Cholesterol Direct 68 mg/dL (50-130) 02/13/21 16:27 HDL Cholesterol 40 mg/dL (40-59) 02/13/21 16:27 Cholesterol/HDL Ratio 3.25 % 02/13/21 16:27 Lipase 35 units/L (13-60) 02/13/21 13:28 Procalcitonin 58.83 ng/mL (<0.15) 02/14/21 10:40 TSH 8.530 mlU/mL (0.270-4.200) H 02/13/21 13:28 Free T3 Index 0.8 pg/mL (2.3-4.2) L 02/16/21 04:30 Arterial Blood Glucose 340 mg/dL (65-95) H 02/19/21 04:00 Arterial Blood Ionized Calcium 3.8 mg/dL (4.6-5.3) L 02/19/21 04:00 Urine Color Laura (Yellow) 02/13/21 21:27 Urine Turbidity Turbid (Clear) 02/13/21 21:27 Urine pH 5.0 (5.0-7.0) 02/13/21 21:27 Ur Specific [place] 1.025 (1.003-1.030) 02/13/21 21:27 Urine Protein >500 mg/dL (Negative) 02/13/21 21:27 Urine Glucose (UA) Neg mg/dL (Negative) 02/13/21 21: Urine Ketones Neg mg/dL (Negative) 02/13/21 21:27 Urine Blood Lg (Negative) 02/13/21 21:27 Urine Nitrite Neg (Negative) 02/13/21 21:27 Urine Bilirubin Neg (Negative) 02/13/21 21: Urine Urobilinogen < 2.0 mg/dL (<2.0) 02/13/21 21:27 Ur Leukocyte Esterase Neg (Negative) 02/13/21 21:27 Urine WBC (Auto) 31.0 /HPF (0.0-6.0) H 02/13/21 21: Urine RBC (Auto) 8.0 /HPF (0.0-6.0) 02/13/21 21: U Epithel Cells (Auto) 4.0 /HPF (0-13.0) 02/13/21 21: Urine Bacteria (Auto) 2+ /HPF (Negative) 02/13/21 21:27 Urine WBC Clumps 3+ /HPF 02/13/21 21:27 Hyaline Casts 5 /LPF 02/13/21 21:27 Urine Mucus 2+ /HPF 02/13/21 21: Urine Yeast (Budding) 3+ /HPF 02/13/21 21:27 Urine Creatinine 80.0 mg/dL (0.1-20.0) H 02/14/21 18:45 Urine Sodium 33 mmol/L 02/14/21 18:45 Salicylates < 0.3 mg/dL (2.8-20.0) L 02/13/21 13:28 Urine Opiates Screen Negative 02/13/21 21:27 Urine Methadone Screen Negative 02/13/21 21: Acetaminophen 5.0 ug/mL (10.0-30.0) L 02/13/21 13:28 Ur Barbiturates Screen Negative 02/13/21 21:27 Ur Phencyclidine Scrn Negative 02/13/21 21:27 Ur Amphetamines Screen Negative 02/13/21 21:27 U Benzodiazepines Scrn Negative 02/13/21 21:27 Urine Cocaine Screen Negative 02/13/21 21:27 U Marijuana (THC) Screen Negative 08/22/21 21:27 Drugs of Abuse Note Disclamer 02/13/21 21:27 Plasma/Serum Alcohol < 0.01 % (0-0.07) 02/13/21 13:28 Coronavirus (PCR) Positive (Negative) A 02/14/21 Unknown Hepatitis A IgM Ab Non-reactive (NonReactive) 02/17/21 12:59 Hep Bs Antigen Nonreactive (Negative) 02/17/21 12:59 Hep B Core IgM Ab Non-reactive (NonReactive) 02/17/21 12:59 Hepatitis C Antibody Non-reactive (NonReactive) 02/17/21 12:59 Blood Type B POSITIVE 02/13/21 13:31 Antibody Screen Negative 02/13/21 13:31 Microbiology: Microbiology 02/13/21 13:48 Peripheral/Venous Blood Culture - Final NO GROWTH AFTER 5 DAYS 02/13/21 13:28 Peripheral/Venous Blood Culture - Final NO GROWTH AFTER 5 DAYS 02/17/21 08:45 Gatric Aspirate Gastric Occult Blood - Final Cho/IV: Voiding Method Indwelling Catheter Active Medications - Current Medications Current Medications: Generic Name Dose Route Start Last Admin Trade Name Freq PRN Reason Stop Dose Admin Acetaminophen 650 mg 02/13/21 15:22 Acetaminophen 325 Mg Tab PO Q6H PRN Pain, Mild (1-3) Acetaminophen 650 mg 02/13/21 15:22 02/13/21 20:30 Acetaminophen 650 Mg Rect Supp IN 650 mg Q6H PRN Administration Pain MILD(1-3)/Fever >100.5/ZACARIAS Albumin Human 25 gm 02/17/21 11:14 Albumin Human 25% (25 Gm/100 Ml) Inj IV AFTAB PRN Hypotension Albuterol 2.5 mg 02/13/21 15:22 Albuterol 2.5 Mg/3 Ml Nebu IH Q3H PRN Shortness Of Breath Lipase/Protease/Amylase 1 each 02/14/21 10:43 Lipase 10,500/Protease 25,000/Amylase 43,750 (Units) Dr Iqbal FEEDTUBE PRN PRN For Clogged Feeding Tube Ascorbic Acid 500 mg 02/13/21 22:00 02/19/21 09:48 Ascorbic Acid 500 Mg Tab PO 500 mg BID RUDY Administration Cholecalciferol 1,000 unit 02/13/21 16:00 02/19/21 09:48 Cholecalciferol (Vit D3) 1000 Unit (25 Mcg) Tab PO 1,000 unit QDAY RUDY Administration Dextrose 50 ml 02/14/21 11:15 Dextrose 50% In Water (25gm) 50 Ml Syringe IV Q30MIN PRN Hypoglycemia Protocol Fentanyl 50 mcg 02/13/21 16:05 Fentanyl 100 Mcg/2 Ml Inj IV Q10MIN PRN ANALGESIA Heparin Sodium (Porcine) 4,400 unit 02/14/21 13:18 Heparin 10,000 Units/10 Ml Vial 40 unit/kg (4400 unit) IV Q6H PRN Anti-Xa Assay < 0.1 units/ml Hydrophilic Ointment 1 applic 02/13/21 22:52 Lip Therapy Vaseline TP Q2HR PRN Dry Lips Heparin Sodium/Sodium Chloride 25,000 unit in 500 mls @ 30 mls/hr 02/13/21 17:00 02/17/21 17:15 Heparin/ 0.45% Nacl-25,000 Unit/500 Ml IV Infused TITR RUDY Titration Protocol 1,500 UNITS/HR Fentanyl Citrate 2,000 mcg in 100 mls @ 5.55 mls/hr 02/13/21 17:00 02/19/21 14:19 Fentanyl Drip Premix IV 4 mcg/kg/hr TITR RUDY 22.2 mls/hr Administration Protocol 1 MCG/KG/HR Norepinephrine 4 mg in 250 mls @ 75 mls/hr 02/13/21 18:00 02/14/21 01:55 Levophed Drip 4 Mg/Ns 250 Ml IV 0 mcg/min TITR RUDY 0 mls/hr Titration Protocol 20 MCG/MIN Propofol 1,000 mg in 100 mls @ 3.33 mls/hr 02/13/21 23:00 02/19/21 12:53 Diprivan 10 Mg/Ml IV 50 mcg/kg/min TITR RUDY 33.3 mls/hr Administration Protocol 5 MCG/KG/MIN Midazolam HCl 100 mg/ Sodium 100 mls @ 1 mls/hr 02/14/21 09:00 02/19/21 06:01 Chloride IV 8 mg/hr TITR RUDY 8 mls/hr Titration Protocol 1 MG/HR Dopamine HCl/Dextrose 800 mg in 250 mls @ 4.163 mls/hr 02/14/21 09:00 02/19/21 09:42 Intropin Drip 800 Mg/D5w 250 Ml IV 8 mcg/kg/min TITR RUDY 16.65 mls/hr Administration Protocol 2 MCG/KG/MIN Sodium Chloride 100 mls @ 999 mls/hr 02/17/21 11:14 Nacl 0.9% IV AFTAB PRN Hypotension Insulin Glargine 25 units 02/18/21 22:00 02/18/21 22:55 Insulin Glargine 100 Units/Ml SUB-Q 25 units QHS RUDY Administration Insulin Human Regular 0 units 02/14/21 12:00 02/19/21 12:53 Insulin Regular, Human 100 Units/1 Ml SUB-Q 8 units Q6H RUDY Administration Protocol Methylprednisolone Sodium Succinate 40 mg 02/18/21 06:00 02/19/21 13:02 Methylprednisolone Sod Succinate 40 Mg/1 Ml Inj IV 40 mg Q8H RUDY Administration Midazolam HCl 2 mg 02/14/21 08:24 Midazolam 2 Mg/2 Ml Inj IV Q10MIN PRN Sedation Multi-Ingred Cream/Lotion/Oil/Oint 1 applic 02/13/21 16:05 Mineral Oil/Petrolatum, White Ophth Oint 3.5 Gm OU Q4H PRN Dry Eye(s) Pantoprazole Sodium 40 mg 02/18/21 22:00 02/19/21 09:48 Pantoprazole 40 Mg Inj IV 40 mg BID RUDY Administration Senna/Docusate Sodium 1 tab 02/13/21 22:00 02/19/21 09:48 Sennosides/Docusate Sodium 8.6/50 Mg Tab FEEDTUBE 1 tab BID RUDY Administration Simple Syrup 15 ml 02/14/21 10:43 Simple Syrup 15 Ml FEEDTUBE PRN PRN Hypoglycemia Simple Syrup 30 ml 02/14/21 10:43 Simple Syrup 15 Ml FEEDTUBE PRN PRN Hypoglycemia Sodium Bicarbonate 325 mg 02/14/21 10:43 Sodium Bicarbonate 325 Mg Tab FEEDTUBE PRN PRN For Clogged Feeding Tube Sodium Chloride 10 ml 02/13/21 22:00 02/19/21 09:48 Sodium Chloride 0.9% 10 Ml Flush Syringe IV 10 ml BID RUDY Administration Sodium Chloride 10 ml 02/13/21 15:22 Sodium Chloride 0.9% 10 Ml Flush Syringe IV PRN PRN LINE FLUSH Zinc Sulfate 220 mg 02/13/21 22:00 02/19/21 09:48 Zinc Sulfate 220 Mg Cap PO 220 mg BID RUDY Administration Nutrition/Malnutrition Assess - Dietary Evaluation Nutrition/Malnutrition Findings: Nutrition Notes Start: 02/14/21 10:34 Freq: Status: Active Protocol: Document 02/18/21 11:53 MK (Rec: 02/18/21 12:12 MK [id number]) Nutrition Notes Initial or Follow up Brief Note Current Diagnosis Acute Kidney Injury, Hypertension,Respiratory Failure Other Pertinent Diagnosis SIRS, pneu, COVID PUI Current Diet Nepro 1.8 at 30 ml/hr Labs/Tests BUN 95 Cr 5.4 BG 270 Pertinent Medications Dopamine Propofol at 33.3 ml/hr (879 kcal) Solu Medrol [place] Body Weight (kg) 0 Weight Status Morbidly Obese Subjective/Other Information TF off this AM. Per RN, pt with 250ml gastric residuals. Per ASPEN guidelines, hold TF only if gastric residuals are greater than >250ml. RN to restart TF at 10 ml/hr and recheck for tolerance. Nutrition Intervention Follow-Up By: 02/21/21 Additional Comments F/u: TF at goal, tolerance and propofol rate
[2021-02-18] MEDS: INSULIN GLARGINE 100 UNITS/ML SUB-Q SCH (22:55)
[2021-02-18] MEDS: PANTOPRAZOLE 40 MG INJ IV SCH (22:55)
[2021-02-19] MEDS: MIDAZOLAM 100 MG in SODIUM CHLORIDE 0.9% 80 ML IV SCH ×2 (02:59→17:25)
[2021-02-19] MEDS: fentaNYL DRIP Premix 2,000 MCG/100 ML BAG IV SCH ×4 (04:45→19:15)
--- NOTE | 2021-02-19 05:05 | XRay Report ---
CHEST 1 VIEW 02/19/2021 3:53 AM INDICATION / CLINICAL INFORMATION: follow up respiratory failure. COMPARISON: Previous day. FINDINGS: SUPPORT DEVICES: Unchanged. HEART / MEDIASTINUM: Stable cardiomegaly. LUNGS / PLEURA: Persistent bilateral opacity. Extensive subcutaneous air and pneumomediastinum remain s. No pneumothorax. ADDITIONAL FINDINGS: No significant additional findings. IMPRESSION: No significant change. Signer Name: Carlos Mir MD Signed: 02/19/2021 5:01 AM Workstation Name: [id number]
[2021-02-19 05:35] LABS: Hematocrit 22.8 % (30.3-42.9); Hemoglobin 7.6 gm/dl (10.1-14.3); Mean Corpuscular HGB Conc 33 % (30-34); Mean Corpuscular Volume 76 fl (79-97); Platelet Count 212 K/mm3 (140-440); Red Blood Count 2.99 M/mm3 (3.65-5.03)
[2021-02-19] MEDS: methylPREDNISolone Sod Succinate 40 MG/1 ML INJ IV SCH ×3 (06:01→22:09)
[2021-02-19] MEDS: INSULIN REGULAR, HUMAN 100 UNITS/1 ML SUB-Q SCH ×3 (06:01→17:56)
[2021-02-19] MEDS: ALBUMIN HUMAN 25% (25 GM/100 ML) INJ IV SCH (06:01)
[2021-02-19 06:11] LABS: Albumin 3.8 g/dL (3.9-5); Calcium 8.1 mg/dL (8.4-10.2)
[2021-02-19 09:18] LABS: Calcium 7.5 mg/dL (8.4-10.2)
[2021-02-19] MEDS: DOPamine/D5W 800 MG/250 ML 800 MG/250 ML BAG IV SCH (09:42)
--- NOTE | 2021-02-19 09:43 | Consultation ---
DATE OF CONSULTATION: 02/18/2021 REFERRING PHYSICIAN: Dr. Aury Montejo INDICATION: Anemia. HISTORY OF PRESENT ILLNESS: The patient is a 70-year-old female being seen by GI for anemia. The patient presented and was admitted on 02/13. The patient has a history of obesity hypoventilation syndrome, hypertension and hypothyroidism. She presented after she was found down and had to be intubated with a PEA arrest in the field. The patient subsequently was brought to Emergency Room where she was subsequently diagnosed with COVID pneumonia. The patient subsequently also was diagnosed with a pneumothorax and had a chest tube placed. The patient initially presented with a hemoglobin of 15, which went down to 9 subsequently. The patient has had some bleeding from a Vascath that has been placed. The patient was noted to have a decreased H and H as noted above and GI is consulted to aid in management. Discussed with staff. No obvious signs of GI blood loss including blood per rectum, melena or hematemesis. The patient did have a positive gastric aspirate. No other history in terms of the patient's past GI related history is available. PAST MEDICAL HISTORY: 1. Hypertension. 2. Hypothyroidism. MEDICATIONS: Reviewed and updated in chart. ALLERGIES: PENICILLIN. SOCIAL HISTORY: Reportedly, no alcohol or tobacco. FAMILY HISTORY: Noncontributory. REVIEW OF SYSTEMS: GENERAL: Weakness. HEENT: No visual complaints or tinnitus. PULMONARY: Reported some shortness of breath. CARDIOVASCULAR: ____ chest pain. GASTROINTESTINAL: No complaints. All points of 13-point review of systems otherwise reportedly negative. PHYSICAL EXAMINATION: VITAL SIGNS: Temperature of 99.3, pulse 61, respirations 18, pressure 139/61. GENERAL: Fairly nourished, intubated, in no acute distress. HEENT: Pupils equal, round and reactive. PULMONARY: Rhonchi. CARDIOVASCULAR: Regular rhythm. Normal S1, S2. ABDOMEN: Positive bowel sounds, soft. SKIN: No obvious rashes. LABORATORY DATA: Pertinent for white count of 11.5, hemoglobin and hematocrit of 8.1 and 24.2, platelet count of 220. Chem-7 pertinent for BUN and creatinine of 95 and 5.4, otherwise within normal limits. ASSESSMENT: A 70-year-old female with past medical history as noted above, admitted after a PEA and intubation and subsequently diagnosed with pneumothorax requiring chest tube, now been seen by GI for anemia. After discussion with the staff, no obvious signs of GI blood loss has been noted. Management is noted below. PLAN: 1. Stool guaiac as ordered. 2. PPI IV b.i.d. 3. Follow hematocrit and transfuse as needed. 4. Given her overall poor prognosis, no plans for aggressive intervention including scope at this time. 5. We will follow further recommendation based on progress. TID: [id number] RECEIPT: [id number] OK/KEVIN/MICHAEL cc: ____ ____
[2021-02-19] MEDS: ASCORBIC ACID 500 MG TAB PO SCH ×2 (09:48→22:01)
[2021-02-19] MEDS: CHOLECALCIFEROL (VIT D3) 1000 UNIT (25 mcg) TAB PO SCH (09:48)
[2021-02-19] MEDS: ZINC SULFATE 220 MG CAP PO SCH ×2 (09:48→22:01)
[2021-02-19] MEDS: SENNOSIDES/DOCUSATE SODIUM 8.6/50 MG TAB FEEDTUBE SCH ×2 (09:48→22:01)
[2021-02-19] MEDS: PANTOPRAZOLE 40 MG INJ IV SCH ×2 (09:48→22:01)
--- NOTE | 2021-02-19 10:03 | Progress Note ---
Assessment and Plan Impression: * SONIA/ATN * COvid PNA * Acute hypoxic resp failure * Sepsis * cardiac arrest * hyperkalemia * Metabolic acidosis Plan: * daily lytes noted, improving with MAINTENA[employer]CE [employer]ICIAN * cardiac arrest noted, worsening atn * added albumin for bp support, CRRT is not availabe, so continue convention hemodialysis PRN, cont vasopressors prn, * [id number] Hemodialysis today * daily lytes, reassess needs for hd daily * sonia due to atn from COvid, high risk for progression * strict i/os * avoid nephrotoxins * Keep MAP>65, vasopressors prn * no emergent indicaion for MAINTENA[employer]NICIAN today * sepsis protocol * spoke with patients daughter, Carolin Tinoco, explained risk and benefits of hemodialysis, agrees to proceed with renal replacement therapy Subjective Date of service: 02/19/21 Principal diagnosis: AHRF; ARDS; Pneumonia; PUI COVID-19; OHS; SONIA; Hyperkalemia; AMS Interval history: events noted, labs reviewed Objective - Exam Narrative Exam: GENERAL: Morbidly obese female. Unresponsive and obtunded HEAD: Normocephalic. No obvious signs of trauma. ENT: Dry mucous membranes. Bag valve mask applied EYES: Pupils are constricted bilaterally but remain reactive. NECK: Trachea is midline. LUNGS: Bilateral breath sounds with [id number] ventilation. There are scattered rales throughout. CARDIOVASCULAR: Regular rate and rhythm. 3/6 systolic murmur VASCULAR: Cap refill < 2 seconds ABDOMEN: Abdomen is soft and nondistended. There is central adiposity SKIN: Skin is warm and dry NEURO: Patient is obtunded and unresponsive even to pain. GCS is 3 MUSCULOSKELETAL: No obvious deformities. - Vital Signs Vital signs: Vital Signs - 12hr 02/18/21 02/18/21 02/18/21 22:15 22:30 22:45 Temperature Pulse Rate 59 L 61 57 L Pulse Rate [ From Monitor] Respiratory 28 H 28 H 28 H Rate Blood Pressure 156/79 147/80 137/78 O2 Sat by Pulse 94 94 94 Oximetry O2 Sat by Pulse Oximetry [ Anterior Bilateral Throughout] 02/18/21 02/18/21 02/18/21 23:00 23:13 23:15 Temperature 98.1 F Pulse Rate 59 L 56 L 54 L Pulse Rate [ From Monitor] Respiratory 28 H 28 H 28 H Rate Blood Pressure 137/78 118/62 118/62 O2 Sat by Pulse 94 93 93 Oximetry O2 Sat by Pulse 95 Oximetry [ Anterior Bilateral Throughout] 02/18/21 02/18/21 02/18/21 23:30 23:32 23:35 Temperature 98.1 F Pulse Rate 56 L 60 Pulse Rate [ From Monitor] Respiratory 28 H Rate Blood Pressure 180/78 169/78 O2 Sat by Pulse 96 95 Oximetry O2 Sat by Pulse Oximetry [ Anterior Bilateral Throughout] 02/18/21 02/19/21 02/19/21 23:45 00:00 00:15 Temperature Pulse Rate 62 61 58 L Pulse Rate [ 61 From Monitor] Respiratory 28 H 28 H 27 H Rate Blood Pressure 180/78 168/77 166/76 O2 Sat by Pulse 96 96 96 Oximetry O2 Sat by Pulse Oximetry [ Anterior Bilateral Throughout] 02/19/21 02/19/21 02/19/21 00:30 00:45 01:00 Temperature Pulse Rate 59 L 58 L 59 L Pulse Rate [ From Monitor] Respiratory 28 H 27 H 28 H Rate Blood Pressure 171/77 170/84 169/83 O2 Sat by Pulse 96 96 95 Oximetry O2 Sat by Pulse Oximetry [ Anterior Bilateral Throughout] 02/19/21 02/19/21 02/19/21 01:15 01:30 01:45 Temperature Pulse Rate 59 L 61 60 Pulse Rate [ From Monitor] Respiratory 27 H 28 H 27 H Rate Blood Pressure 172/74 168/78 163/75 O2 Sat by Pulse 95 95 95 Oximetry O2 Sat by Pulse Oximetry [ Anterior Bilateral Throughout] 02/19/21 02/19/21 02/19/21 02:00 02:15 02:30 Temperature Pulse Rate 61 60 60 Pulse Rate [ From Monitor] Respiratory 28 H 28 H 28 H Rate Blood Pressure 169/84 165/78 168/82 O2 Sat by Pulse 95 95 95 Oximetry O2 Sat by Pulse Oximetry [ Anterior Bilateral Throughout] 02/19/21 02/19/21 02/19/21 02:45 03:00 03:15 Temperature Pulse Rate 61 61 59 L Pulse Rate [ From Monitor] Respiratory 28 H 28 H 28 H Rate Blood Pressure 169/82 164/78 167/79 O2 Sat by Pulse 95 96 95 Oximetry O2 Sat by Pulse Oximetry [ Anterior Bilateral Throughout] 02/19/21 02/19/21 02/19/21 03:30 03:36 03:45 Temperature 97.6 F Pulse Rate 60 59 L Pulse Rate [ From Monitor] Respiratory 28 H 28 H Rate Blood Pressure 164/78 164/78 O2 Sat by Pulse 95 95 Oximetry O2 Sat by Pulse Oximetry [ Anterior Bilateral Throughout] 02/19/21 02/19/21 02/19/21 04:00 04:14 04:15 Temperature Pulse Rate 59 L 99 H 57 L Pulse Rate [ 61 From Monitor] Respiratory 28 H 28 H Rate Blood Pressure 165/77 162/77 164/78 O2 Sat by Pulse 96 95 96 Oximetry O2 Sat by Pulse Oximetry [ Anterior Bilateral Throughout] 02/19/21 02/19/21 02/19/21 04:30 04:45 05:00 Temperature Pulse Rate 57 L 59 L 58 L Pulse Rate [ From Monitor] Respiratory 28 H 28 H 28 H Rate Blood Pressure 170/79 169/68 160/81 O2 Sat by Pulse 96 95 93 Oximetry O2 Sat by Pulse Oximetry [ Anterior Bilateral Throughout] 02/19/21 02/19/21 02/19/21 05:15 05:30 05:45 Temperature Pulse Rate 59 L 60 59 L Pulse Rate [ From Monitor] Respiratory 28 H 27 H 28 H Rate Blood Pressure 157/74 163/77 162/80 O2 Sat by Pulse 92 93 94 Oximetry O2 Sat by Pulse Oximetry [ Anterior Bilateral Throughout] 02/19/21 02/19/21 02/19/21 06:00 06:15 06:30 Temperature Pulse Rate 58 L 77 83 Pulse Rate [ From Monitor] Respiratory 27 H 17 16 Rate Blood Pressure 162/78 162/78 155/93 O2 Sat by Pulse 94 87 Oximetry O2 Sat by Pulse Oximetry [ Anterior Bilateral Throughout] 02/19/21 02/19/21 02/19/21 06:45 07:00 07:15 Temperature Pulse Rate 63 63 63 Pulse Rate [ From Monitor] Respiratory 28 H 27 H 28 H Rate Blood Pressure 156/73 154/75 154/76 O2 Sat by Pulse 87 87 87 Oximetry O2 Sat by Pulse Oximetry [ Anterior Bilateral Throughout] 02/19/21 02/19/21 02/19/21 07:30 07:45 08:00 Temperature Pulse Rate 63 63 64 Pulse Rate [ From Monitor] Respiratory 28 H 22 28 H Rate Blood Pressure 154/74 154/92 157/73 O2 Sat by Pulse 88 61 L 83 L Oximetry O2 Sat by Pulse Oximetry [ Anterior Bilateral Throughout] 02/19/21 02/19/21 02/19/21 08:15 08:30 08:33 Temperature 97.6 F Pulse Rate 63 65 Pulse Rate [ From Monitor] Respiratory 28 H 28 H Rate Blood Pressure 155/74 153/76 O2 Sat by Pulse 82 L 82 L Oximetry O2 Sat by Pulse Oximetry [ Anterior Bilateral Throughout] 02/19/21 02/19/21 02/19/21 08:36 08:45 09:00 Temperature Pulse Rate 77 66 66 Pulse Rate [ From Monitor] Respiratory 28 H 28 H Rate Blood Pressure 162/78 155/73 152/74 O2 Sat by Pulse 94 83 L 82 L Oximetry O2 Sat by Pulse Oximetry [ Anterior Bilateral Throughout] 02/19/21 02/19/21 02/19/21 09:15 09:30 09:45 Temperature Pulse Rate 61 45 L 49 L Pulse Rate [ From Monitor] Respiratory 28 H 28 H 28 H Rate Blood Pressure 146/74 66/30 111/49 O2 Sat by Pulse 74 L 71 L 70 L Oximetry O2 Sat by Pulse Oximetry [ Anterior Bilateral Throughout] 02/19/21 10:00 Temperature Pulse Rate 67 Pulse Rate [ From Monitor] Respiratory 28 H Rate Blood Pressure 140/65 O2 Sat by Pulse 62 L Oximetry O2 Sat by Pulse Oximetry [ Anterior Bilateral Throughout] - Lab 02/19/21 04:25 02/19/21 08:05 Most recent lab results ABG pH 7.406 (7.320-7.450) 02/19/21 04:00 ABG pCO2 39.8 mm Hg 02/16/21 10:45 ABG pO2 37.9 mm Hg (80.0-90.0) L* 02/16/21 10:45 ABG HCO3 20.5 mmol/L (20.0-26.0) 02/16/21 10:45 ABG O2 Saturation 89.6 (0-100) 02/19/21 04:00 Calcium 7.5 mg/dL (8.4-10.2) L 02/19/21 08:05 Phosphorus 5.00 mg/dL (2.5-4.5) H 02/19/21 04:25 Magnesium 2.40 mg/dL (1.7-2.3) H 02/19/21 04:25 Urine Creatinine 80.0 mg/dL (0.1-20.0) H 02/14/21 18:45 Urine Sodium 33 mmol/L 02/14/21 18:45 Medications & Allergies - Medications Allergies/Adverse Reactions: Allergies Penicillins Adverse Reaction (Unknown, Verified 02/17/21 19:47) Unknown Home Medications: Home Medications Medication Instructions Recorded Confirmed Last Taken Type Insulin NPH Hum/Reg Insulin Hm See Protocol SQ DAILY 02/13/21 02/13/21 Unknown History [Novolin 70-30 100 Unit/ml Vial] metFORMIN [Glucophage] 500 mg PO TID 02/13/21 02/13/21 Unknown History Active Medications: Generic Name Dose Route Start Last Admin Trade Name Freq PRN Reason Stop Dose Admin Acetaminophen 650 mg 02/13/21 15:22 Acetaminophen 325 Mg Tab PO Q6H PRN Pain, Mild (1-3) Acetaminophen 650 mg 02/13/21 15:22 02/13/21 20:30 Acetaminophen 650 Mg Rect Supp [place] 650 mg Q6H PRN Administration Pain MILD(1-3)/Fever >100.5/ZACARIAS Albumin Human 25 gm 02/17/21 11:14 Albumin Human 25% (25 Gm/100 Ml) Inj IV AFTAB PRN Hypotension Albuterol 2.5 mg 02/13/21 15:22 Albuterol 2.5 Mg/3 Ml Nebu IH Q3H PRN Shortness Of Breath Lipase/Protease/Amylase 1 each 02/14/21 10:43 Lipase 10,500/Protease 25,000/Amylase 43,750 (Units) Dr Iqbal FEEDTUBE PRN PRN For Clogged Feeding Tube Ascorbic Acid 500 mg 02/13/21 22:00 02/19/21 09:48 Ascorbic Acid 500 Mg Tab PO 500 mg BID RUDY Administration Cholecalciferol 1,000 unit 02/13/21 16:00 02/19/21 09:48 Cholecalciferol (Vit D3) 1000 Unit (25 Mcg) Tab PO 1,000 unit QDAY RUDY Administration Dextrose 50 ml 02/14/21 11:15 Dextrose 50% In Water (25gm) 50 Ml Syringe IV Q30MIN PRN Hypoglycemia Protocol Fentanyl 50 mcg 02/13/21 16:05 Fentanyl 100 Mcg/2 Ml Inj IV Q10MIN PRN ANALGESIA Heparin Sodium (Porcine) 4,400 unit 02/14/21 13:18 Heparin 10,000 Units/10 Ml Vial 40 unit/kg (4400 unit) IV Q6H PRN Anti-Xa Assay < 0.1 units/ml Hydrophilic Ointment 1 applic 02/13/21 22:52 Lip Therapy Vaseline TP Q2HR PRN Dry Lips Heparin Sodium/Sodium Chloride 25,000 unit in 500 mls @ 30 mls/hr 02/13/21 1 7:00 02/17/21 17:15 Heparin/ 0.45% Nacl-25,000 Unit/500 Ml IV Infused TITR RUDY Titration Protocol 1,500 UNITS/HR Fentanyl Citrate 2,000 mcg in 100 mls @ 5.55 mls/hr 02/13/21 17:00 02/19/21 09:43 Fentanyl Drip Premix IV 4 mcg/kg/hr TITR RUDY 22.2 mls/hr Administration Protocol 1 MCG/KG/HR Norepinephrine 4 mg in 250 mls @ 75 mls/hr 02/13/21 18:00 02/14/21 01:55 Levophed Drip 4 Mg/Ns 250 Ml IV 0 mcg/min TITR RUDY 0 mls/hr Titration Protocol 20 MCG/MIN Propofol 1,000 mg in 100 mls @ 3.33 mls/hr 02/13/21 23:00 02/19/21 09:44 Diprivan 10 Mg/Ml IV 50 mcg/kg/min TITR RUDY 33.3 mls/hr Administration Protocol 5 MCG/KG/MIN Midazolam HCl 100 mg/ Sodium 100 mls @ 1 mls/hr 02/14/21 09:00 02/19/21 06:01 Chloride IV 8 mg/hr TITR RUDY 8 mls/hr Titration Protocol 1 MG/HR Dopamine HCl/Dextrose 800 mg in 250 mls @ 4.163 mls/hr 02/14/21 09:00 02/19/21 09:42 Intropin Drip 800 Mg/D5w 250 Ml IV 8 mcg/kg/min TITR RUDY 16.65 mls/hr Administration Protocol 2 MCG/KG/MIN Sodium Chloride 100 mls @ 999 mls/hr 02/17/21 11:14 Nacl 0.9% IV AFTAB PRN Hypotension Insulin Glargine 25 units 02/18/21 22:00 02/18/21 22:55 Insulin Glargine 100 Units/Ml SUB-Q 25 units QHS RUDY Administration Insulin Human Regular 0 units 02/14/21 12:00 02/19/21 06:01 Insulin Regular, Human 100 Units/1 Ml SUB-Q 6 units Q6H RUDY Administration Protocol Methylprednisolone Sodium Succinate 40 mg 02/18/21 06:00 02/19/21 06:01 Methylprednisolone Sod Succinate 40 Mg/1 Ml Inj IV 40 mg Q8H RUDY Administration Midazolam HCl 2 mg 02/14/21 08:24 Midazolam 2 Mg/2 Ml Inj IV Q10MIN PRN Sedation Multi-Ingred Cream/Lotion/Oil/Oint 1 applic 02/13/21 16:05 Mineral Oil/Petrolatum, White Ophth Oint 3.5 Gm OU Q4H PRN Dry Eye(s) Pantoprazole Sodium 40 mg 02/18/21 22:00 02/19/21 09:48 Pantoprazole 40 Mg Inj IV 40 mg BID RUDY Administration Senna/Docusate Sodium 1 tab 02/13/21 22:00 02/19/21 09:48 Sennosides/Docusate Sodium 8.6/50 Mg Tab FEEDTUBE 1 tab BID RUDY Administration Simple Syrup 15 ml 02/14/21 10:43 Simple Syrup 15 Ml FEEDTUBE PRN PRN Hypoglycemia Simple Syrup 30 ml 02/14/21 10:43 Simple Syrup 15 Ml FEEDTUBE PRN PRN Hypoglycemia Sodium Bicarbonate 325 mg 02/14/21 10:43 Sodium Bicarbonate 325 Mg Tab FEEDTUBE PRN PRN For Clogged Feeding Tube Sodium Chloride 10 ml 02/13/21 22:00 02/19/21 09:48 Sodium Chloride 0.9% 10 Ml Flush Syringe IV 10 ml BID RUDY Administration Sodium Chloride 10 ml 02/13/21 15:22 Sodium Chloride 0.9% 10 Ml Flush Syringe IV PRN PRN LINE FLUSH Zinc Sulfate 220 mg 02/13/21 22:00 02/19/21 09:48 Zinc Sulfate 220 Mg Cap PO 220 mg BID RUDY Administration
--- NOTE | 2021-02-19 14:06 | Progress Note ---
Assessment and Plan 1. Positive gastric aspirate - for occult blood. No yahaira blood. This would be due to NGT trauma. No evidence of significant GI bleed. Hgb slowly dropping, now 7.6, likely multifactorial. - empiric PPI - monitor H/H - please call if yahaira GI bleed develops. Will sign off. Thanks. Subjective Date of service: 02/19/21 Principal diagnosis: AHRF; ARDS; Pneumonia; PUI COVID-19; OHS; SONIA; Hyperkalemia; AMS Interval history: Pt not seen. Discussed with RNMargaret. No evidence of yahaira GI bleed, with no blood visible in NGT or LGI bleed. Objective - Exam Narrative Exam: Not seen due to COVID. - Constitutional Vitals: Vital Signs - 12hr 02/19/21 02/19/21 02/19/21 02:15 02:30 02:45 Temperature Pulse Rate 60 60 61 Pulse Rate [ From Monitor] Respiratory 28 H 28 H 28 H Rate Blood Pressure 165/78 168/82 169/82 O2 Sat by Pulse 95 95 95 Oximetry 02/19/21 02/19/21 02/19/21 03:00 03:15 03:30 Temperature Pulse Rate 61 59 L 60 Pulse Rate [ From Monitor] Respiratory 28 H 28 H 28 H Rate Blood Pressure 164/78 167/79 164/78 O2 Sat by Pulse 96 95 95 Oximetry 02/19/21 02/19/21 02/19/21 03:36 03:45 04:00 Temperature 97.6 F Pulse Rate 59 L 59 L Pulse Rate [ 61 From Monitor] Respiratory 28 H 28 H Rate Blood Pressure 164/78 165/77 O2 Sat by Pulse 95 96 Oximetry 02/19/21 02/19/21 02/19/21 04:14 04:15 04:30 Temperature Pulse Rate 99 H 57 L 57 L Pulse Rate [ From Monitor] Respiratory 28 H 28 H Rate Blood Pressure 162/77 164/78 170/79 O2 Sat by Pulse 95 96 96 Oximetry 02/19/21 02/19/21 02/19/21 04:45 05:00 05:15 Temperature Pulse Rate 59 L 58 L 59 L Pulse Rate [ From Monitor] Respiratory 28 H 28 H 28 H Rate Blood Pressure 169/68 160/81 157/74 O2 Sat by Pulse 95 93 92 Oximetry 02/19/21 02/19/2121 05:30 05:45 06:00 Temperature Pulse Rate 60 59 L 58 L Pulse Rate [ From Monitor] Respiratory 27 H 28 H 27 H Rate Blood Pressure 163/77 162/80 162/78 O2 Sat by Pulse 93 94 94 Oximetry 02/19/21 02/19/21 02/19/21 06:15 06:30 06:45 Temperature Pulse Rate 77 83 63 Pulse Rate [ From Monitor] Respiratory 17 16 28 H Rate Blood Pressure 162/78 155/93 156/73 O2 Sat by Pulse 87 87 Oximetry 02/19/21 02/19/21 02/19/21 07:00 07:15 07:30 Temperature Pulse Rate 63 63 63 Pulse Rate [ From Monitor] Respiratory 27 H 28 H 28 H Rate Blood Pressure 154/75 154/76 154/74 O2 Sat by Pulse 87 87 88 Oximetry 02/19/21 02/19/21 02/19/21 07:45 08:00 08:15 Temperature Pulse Rate 63 67 63 Pulse Rate [ 64 From Monitor] Respiratory 22 28 H 28 H Rate Blood Pressure 154/92 157/73 155/74 O2 Sat by Pulse 61 L 83 L 82 L Oximetry 02/19/21 02/19/21 02/19/21 08:30 08:33 08:36 Temperature 97.6 F Pulse Rate 65 77 Pulse Rate [ From Monitor] Respiratory 28 H Rate Blood Pressure 153/76 162/78 O2 Sat by Pulse 82 L 94 Oximetry 02/19/21 02/19/21 02/19/21 08:45 09:00 09:15 Temperature Pulse Rate 66 66 61 Pulse Rate [ From Monitor] Respiratory 28 H 28 H 28 H Rate Blood Pressure 155/73 152/74 146/74 O2 Sat by Pulse 83 L 82 L 74 L Oximetry 02/19/21 02/19/21 02/19/21 09:30 09:45 10:00 Temperature Pulse Rate 45 L 49 L 67 Pulse Rate [ From Monitor] Respiratory 28 H 28 H 28 H Rate Blood Pressure 66/30 111/49 140/65 O2 Sat by Pulse 71 L 70 L 62 L Oximetry 02/19/21 02/19/21 02/19/21 10:15 10:30 10:44 Temperature Pulse Rate 70 67 Pulse Rate [ From Monitor] Respiratory 25 H 28 H 28 H Rate Blood Pressure 146/70 154/74 O2 Sat by Pulse 65 L 78 L Oximetry 02/19/21 02/19/21 02/19/21 10:45 11:00 11:15 Temperature Pulse Rate 66 66 67 Pulse Rate [ From Monitor] Respiratory 28 H 28 H 28 H Rate Blood Pressure 146/78 138/70 135/72 O2 Sat by Pulse 77 L 75 L 73 L Oximetry 02/19/21 02/19/21 02/19/21 11:30 11:45 12:00 Temperature Pulse Rate 69 69 68 Pulse Rate [ 70 From Monitor] Respiratory 28 H 28 H 28 H Rate Blood Pressure 136/67 128/68 122/64 O2 Sat by Pulse 71 L 70 L 67 L Oximetry - Labs CBC & Chem 7: 02/19/21 04:25 02/19/21 08:05 Labs: Abnormal lab results 02/16/21 02/18/21 02/18/21 Range/Units 04:30 17:59 23:32 WBC (4.5-11.0) K/mm3 RBC (3.65-5.03) M/mm3 Hgb (10.1-14.3) gm/dl Hct (30.3-42.9) % MCV (79-97) fl MCH (28-32) pg RDW (13.2-15.2) % Heparin Anti-Xa Level (0.3-0.7) U.I./ml POC ABG pO2 (83-108) mmHg ABG Hemoglobin (12.0-17.5) ABG Oxyhemoglobin (94-98) ABG Glucose (65-95) mg/dL Chloride (98-107) mmol/L BUN (7-17) mg/dL Creatinine (0.6-1.2) mg/dL Glucose (65-100) mg/dL POC Glucose 271 H 222 H (70-105) mg/dL Calcium (8.4-10.2) mg/dL Phosphorus (2.5-4.5) mg/dL Magnesium (1.7-2.3) mg/dL Albumin (3.9-5) g/dL Free T3 Index 0.8 L (2.3-4.2) pg/mL Arterial Blood Glucose (65-95) mg/dL Arterial Blood Ionized Calcium (4.6-5.3) mg/dL 02/19/21 02/19/21 02/19/21 Range/Units 04:00 04:25 04:25 WBC 13.6 H (4.5-11.0) K/mm3 RBC 2.99 L (3.65-5.03) M/mm3 Hgb 7.6 L (10.1-14.3) gm/dl Hct 22.8 L (30.3-42.9) % MCV 76 L (79-97) fl MCH 25 L (28-32) pg RDW 16.0 H (13.2-15.2) % Heparin Anti-Xa Level < 0.10 L (0.3-0.7) U.I./ml POC ABG pO2 59.8 L (83-108) mmHg ABG Hemoglobin 8.0 L (12.0-17.5) ABG Oxyhemoglobin 88.6 L (94-98) ABG Glucose 340 H (65-95) mg/dL Chloride (98-107) mmol/L BUN (7-17) mg/dL Creatinine (0.6-1.2) mg/dL Glucose (65-100) mg/dL POC Glucose (70-105) mg/dL Calcium (8.4-10.2) mg/dL Phosphorus (2.5-4.5) mg/dL Magnesium (1.7-2.3) mg/dL Albumin (3.9-5) g/dL Free T3 Index (2.3-4.2) pg/mL Arterial Blood Glucose 340 H (65-95) mg/dL Arterial Blood Ionized Calcium 3.8 L (4.6-5.3) mg/dL 02/19/21 02/19/21 02/19/21 Range/Units 04:25 04:53 08:05 WBC (4.5-11.0) K/mm3 RBC (3.65-5.03) M/mm3 Hgb (10.1-14.3) gm/dl Hct (30.3-42.9) % MCV (79-97) fl MCH (28-32) pg RDW (13.2-15.2) % Heparin Anti-Xa Level (0.3-0.7) U.I./ml POC ABG pO2 (83-108) mmHg ABG Hemoglobin (12.0-17.5) ABG Oxyhemoglobin (94-98) ABG Glucose (65-95) mg/dL Chloride 97.1 L (98-107) mmol/L BUN 71 H 72 H (7-17) mg/dL Creatinine 4.1 H 4.0 H (0.6-1.2) mg/dL Glucose 318 H 346 H (65-100) mg/dL POC Glucose 293 H (70-105) mg/dL Calcium 8.1 L D 7.5 L (8.4-10.2) mg/dL Phosphorus 5.00 H (2.5-4.5) mg/dL Magnesium 2.40 H (1.7-2.3) mg/dL Albumin 3.8 L (3.9-5) g/dL Free T3 Index (2.3-4.2) pg/mL Arterial Blood Glucose (65-95) mg/dL Arterial Blood Ionized Calcium (4.6-5.3) mg/dL 02/19/21 Range/Units 12:37 WBC (4.5-11.0) K/mm3 RBC (3.65-5.03) M/mm3 Hgb (10.1-14.3) gm/dl Hct (30.3-42.9) % MCV (79-97) fl MCH (28-32) pg RDW (13.2-15.2) % Heparin Anti-Xa Level (0.3-0.7) U.I./ml POC ABG pO2 (83-108) mmHg ABG Hemoglobin (12.0-17.5) ABG Oxyhemoglobin (94-98) ABG Glucose (65-95) mg/dL Chloride (98-107) mmol/L BUN (7-17) mg/dL Creatinine (0.6-1.2) mg/dL Glucose (65-100) mg/dL POC Glucose 306 H (70-105) mg/dL Calcium (8.4-10.2) mg/dL Phosphorus (2.5-4.5) mg/dL Magnesium (1.7-2.3) mg/dL Albumin (3.9-5) g/dL Free T3 Index (2.3-4.2) pg/mL Arterial Blood Glucose (65-95) mg/dL Arterial Blood Ionized Calcium (4.6-5.3) mg/dL Medications & Allergies - Medications Allergies/Adverse Reactions: Allergies Penicillins Adverse Reaction (Unknown, Verified 02/17/21 19:47) Unknown Home Medications: Home Medications Medication Instructions Recorded Confirmed Last Taken Type Insulin NPH Hum/Reg Insulin Hm See Protocol SQ DAILY 02/13/21 02/13/21 Unknown History [Novolin 70-30 100 Unit/ml Vial] metFORMIN [Glucophage] 500 mg PO TID 02/13/21 02/13/21 Unknown History Active Medications: Generic Name Dose Route Start Last Admin Trade Name Freq PRN Reason Stop Dose Admin Acetaminophen 650 mg 02/13/21 15:22 Acetaminophen 325 Mg Tab PO Q6H PRN Pain, Mild (1-3) Acetaminophen 650 mg 02/13/21 15:22 02/13/21 20:30 Acetaminophen 650 Mg Rect Supp VT 650 mg Q6H PRN Administration Pain MILD(1-3)/Fever >100.5/ZACARIAS Albumin Human 25 gm 02/17/21 11:14 Albumin Human 25% (25 Gm/100 Ml) Inj IV AFTAB PRN Hypotension Albuterol 2.5 mg 02/13/21 15:22 Albuterol 2.5 Mg/3 Ml Nebu IH Q3H PRN Shortness Of Breath Lipase/Protease/Amylase 1 each 02/14/21 10:43 Lipase 10,500/Protease 25,000/Amylase 43,750 (Units) Dr Iqbal FEEDTUBE PRN PRN For Clogged Feeding Tube Ascorbic Acid 500 mg 02/13/21 22:00 02/19/21 09:48 Ascorbic Acid 500 Mg Tab PO 500 mg BID RUDY Administration Cholecalciferol 1,000 unit 02/13/21 16:00 02/19/21 09:48 Cholecalciferol (Vit D3) 1000 Unit (25 Mcg) Tab PO 1,000 unit QDAY RUDY Administration Dextrose 50 ml 02/14/21 11:15 Dextrose 50% In Water (25gm) 50 Ml Syringe IV Q30MIN PRN Hypoglycemia Protocol Fentanyl 50 mcg 02/13/21 16:05 Fentanyl 100 Mcg/2 Ml Inj IV Q10MIN PRN ANALGESIA Heparin Sodium (Porcine) 4,400 unit 02/14/21 13:18 Heparin 10,000 Units/10 Ml Vial 40 unit/kg (4400 unit) IV Q6H PRN Anti-Xa Assay < 0.1 units/ml Hydrophilic Ointment 1 applic 02/13/21 22:52 Lip Therapy Vaseline TP Q2HR PRN Dry Lips Heparin Sodium/Sodium Chloride 25,000 unit in 500 mls @ 30 mls/hr 02/13/21 17:00 02/17/21 17:15 Heparin/ 0.45% Nacl-25,000 Unit/500 Ml IV Infused TITR RUDY Titration Protocol 1,500 UNITS/HR Fentanyl Citrate 2,000 mcg in 100 mls @ 5.55 mls/hr 02/13/21 17:00 02/19/21 09:43 Fentanyl Drip Premix IV 4 mcg/kg/hr TITR RUDY 22.2 mls/hr Administration Protocol 1 MCG/KG/HR Norepinephrine 4 mg in 250 mls @ 75 mls/hr 02/13/21 18:00 02/14/21 01:55 Levophed Drip 4 Mg/Ns 250 Ml IV 0 mcg/min TITR RUDY 0 mls/hr Titration Protocol 20 MCG/MIN Propofol 1,000 mg in 100 mls @ 3.33 mls/hr 02/13/21 23:00 02/19/21 12:53 Diprivan 10 Mg/Ml IV 50 mcg/kg/min TITR RUDY 33.3 mls/hr Administration Protocol 5 MCG/KG/MIN Midazolam HCl 100 mg/ Sodium 100 mls @ 1 mls/hr 02/14/21 09:00 02/19/21 06:01 Chloride IV 8 mg/hr TITR RUDY 8 mls/hr Titration Protocol 1 MG/HR Dopamine HCl/Dextrose 800 mg in 250 mls @ 4.163 mls/hr 02/14/21 09:00 02/19/21 09:42 Intropin Drip 800 Mg/D5w 250 Ml IV 8 mcg/kg/min TITR RUDY 16.65 mls/hr Administration Protocol 2 MCG/KG/MIN Sodium Chloride 100 mls @ 999 mls/hr 02/17/21 11:14 Nacl 0.9% IV AFTAB PRN Hypotension Insulin Glargine 25 units 02/18/21 22:00 02/18/21 22:55 Insulin Glargine 100 Units/Ml SUB-Q 25 units QHS [facility] Administration Insulin Human Regular 0 units 02/14/21 12:00 02/19/21 12:53 Insulin Regular, Human 100 Units/1 Ml SUB-Q 8 units Q6H [facility] Administration Protocol Methylprednisolone Sodium Succinate 40 mg 02/18/21 06:00 02/19/21 13:02 Methylprednisolone Sod Succinate 40 Mg/1 Ml Inj IV 40 mg Q8H RUDY Administration Midazolam HCl 2 mg 02/14/21 08:24 Midazolam 2 Mg/2 Ml Inj IV Q10MIN PRN Sedation Multi-Ingred Cream/Lotion/Oil/Oint 1 applic 02/13/21 16:05 Mineral Oil/Petrolatum, White Ophth Oint 3.5 Gm OU Q4H PRN Dry Eye(s) Pantoprazole Sodium 40 mg 02/18/21 22:00 02/19/21 09:48 Pantoprazole 40 Mg Inj IV 40 mg BID RUDY Administration Senna/Docusate Sodium 1 tab 02/13/21 22:00 02/19/21 09:48 Sennosides/Docusate Sodium 8.6/50 Mg Tab FEEDTUBE 1 tab BID RUDY Administration Simple Syrup 15 ml 02/14/21 10:43 Simple Syrup 15 Ml FEEDTUBE PRN PRN Hypoglycemia Simple Syrup 30 ml 02/14/21 10:43 Simple Syrup 15 Ml FEEDTUBE PRN PRN Hypoglycemia Sodium Bicarbonate 325 mg 02/14/21 10:43 Sodium Bicarbonate 325 Mg Tab FEEDTUBE PRN PRN For Clogged Feeding Tube Sodium Chloride 10 ml 02/13/21 22:00 02/19/21 09:48 Sodium Chloride 0.9% 10 Ml Flush Syringe IV 10 ml BID RUDY Administration Sodium Chloride 10 ml 02/13/21 15:22 Sodium Chloride 0.9% 10 Ml Flush Syringe IV PRN PRN LINE FLUSH Zinc Sulfate 220 mg 02/13/21 22:00 02/19/21 09:48 Zinc Sulfate 220 Mg Cap PO 220 mg BID RUDY Administration HEART Score - HEART Score Troponin: Troponin T 0.033 ng/mL (0.00-0.029) H 02/13/21 18:39
--- NOTE | 2021-02-19 14:41 | Progress Note ---
Assessment and Plan Acute hypoxemic respiratory failure Acute respiratory distress syndrome Bilateral pneumonia PUI COVID-19 Obesity hypoventilation syndrome Acute kidney injuryElevated serum inflammatory markers to include D-dimers, ferritin, LDH, CRP Hyperkalemia Lactic acidosis Probable rhabdomyolysis Acute encephalopathy - continue chest tube to continuous wall suction - continue HD/UF for toxin and volume clearance per nephrology prescription - trend H&H - peep increased to 22 cm H2O and FiO2 in mid 70's - wean vasopressors for target MAP > 65 mmHg and dopamine for target HR > 55- 60/min - continue care as below otherwise; - nephrology evaluation ongoing - continue to wean supplemental oxygen for target O2 sat's > 92% acutely - aspiration precautions - continue bronchodilators with pulmonary hygiene per RT - avoid nephrotoxins, renally dose all medications - continue to avoid benzodiazepine's, reduce the possibility of delirium - complete AB's per ID rec's - prn analgesia per pain score - Maintenance of sleep-wake cycle, avoid delirium - G.I. & VTE prophylaxis - PT/OT/ROM exercises - continue mobility protocols for pressure ulcer prophylaxis - Monitor hemodynamics closely - continue other care per attending / other consultants - discharge planning ongoing concurrently COVID SPECIFIC INTERVENTIONS - Remdesivir as per ID/Pulmonary developed protocols (not a candidate re: SONIA) - continue systemic steroids for severe COVID-19 infection (Solumedrol) - follow repeat COVID tests results - zinc and vitamin C supplementation - Monitor inflammatory markers per facility protocol - ferritin, Ddimer, CRP - therapeutic anticoagulation per system Protocol based on d-dimer and clinical considerations (IV Heparin drip) - Continue contact and airborne isolation .... Re-evaluate in am & prn CONDITION: CRITICAL PROGNOSIS: GRAVE CODE STATUS: FULL CODE The high probability of a clinically significant, sudden or life-threatening deterioration of the [respiratory, cardiovascular & neurologic] system(s) required my full and direct attention, intervention and personal management. The aggregate critical care time was [33] minutes without overlap. Time includes spent on; [x] Data Review and interpretation [x] Patient assessment and monitoring of vital signs [x] Documentation [x] Medication orders and management Subjective Date of service: 02/19/21 Principal diagnosis: AHRF; ARDS; Pneumonia; PUI COVID-19; OHS; SONIA; Hyperkalemia; AMS Interval history: Patient is seen today for: Acute hypoxemic respiratory failure; ARDS; Pneumonia; PUI COVID-19; OHS; SONIA; Hyperkalemia; Rhabdomyolysis; Acute encephalopathy Seen and examined at bedside; 24hour events reviewed; nursing and respiratory care staff consulted; no adverse overnight events reported to me; resting in bed; remains on MVS; SQ emphysema is persistent; FiO2 remains at 100% but O2 sat's in the 60's despite increasing peep to 20 cm H2O; no gross bleeding Objective Vital Signs - 12hr 02/19/21 02/19/21 02/19/21 02:45 03:00 03:15 Temperature Pulse Rate 61 61 59 L Pulse Rate [ From Monitor] Respiratory 28 H 28 H 28 H Rate Blood Pressure 169/82 164/78 167/79 O2 Sat by Pulse 95 96 95 Oximetry 02/19/21 02/19/21 02/19/21 03:30 03:36 03:45 Temperature 97.6 F Pulse Rate 60 59 L Pulse Rate [ From Monitor] Respiratory 28 H 28 H Rate Blood Pressure 164/78 164/78 O2 Sat by Pulse 95 95 Oximetry 02/19/21 02/19/21 02/19/21 04:00 04:14 04:15 Temperature Pulse Rate 59 L 99 H 57 L Pulse Rate [ 61 From Monitor] Respiratory 28 H 28 H Rate Blood Pressure 165/77 162/77 164/78 O2 Sat by Pulse 96 95 96 Oximetry 02/19/21 02/19/21 02/19/21 04:30 04:45 05:00 Temperature Pulse Rate 57 L 59 L 58 L Pulse Rate [ From Monitor] Respiratory 28 H 28 H 28 H Rate Blood Pressure 170/79 169/68 160/81 O2 Sat by Pulse 96 95 93 Oximetry 02/19/21 02/19/21 02/19/21 05:15 05:30 05:45 Temperature Pulse Rate 59 L 60 59 L Pulse Rate [ From Monitor] Respiratory 28 H 27 H 28 H Rate Blood Pressure 157/74 163/77 162/80 O2 Sat by Pulse 92 93 94 Oximetry 02/19/21 02/19/21 02/19/21 06:00 06:15 06:30 Temperature Pulse Rate 58 L 77 83 Pulse Rate [ From Monitor] Respiratory 27 H 17 16 Rate Blood Pressure 162/78 162/78 155/93 O2 Sat by Pulse 94 87 Oximetry 02/19/21 02/19/21 02/19/21 06:45 07:00 07:15 Temperature Pulse Rate 63 63 63 Pulse Rate [ From Monitor] Respiratory 28 H 27 H 28 H Rate Blood Pressure 156/73 154/75 154/76 O2 Sat by Pulse 87 87 87 Oximetry 02/19/21 02/19/21 02/19/21 07:30 07:45 08:00 Temperature Pulse Rate 63 63 67 Pulse Rate [ 64 From Monitor] Respiratory 28 H 22 28 H Rate Blood Pressure 154/74 154/92 157/73 O2 Sat by Pulse 88 61 L 83 L Oximetry 02/19/21 02/19/21 02/19/21 08:15 08:30 08:33 Temperature 97.6 F Pulse Rate 63 65 Pulse Rate [ From Monitor] Respiratory 28 H 28 H Rate Blood Pressure 155/74 153/76 O2 Sat by Pulse 82 L 82 L Oximetry 02/19/21 02/19/21 02/19/21 08:36 08:45 09:00 Temperature Pulse Rate 77 66 66 Pulse Rate [ From Monitor] Respiratory 28 H 28 H Rate Blood Pressure 162/78 155/73 152/74 O2 Sat by Pulse 94 83 L 82 L Oximetry 02/19/21 02/19/21 02/19/21 09:15 09:30 09:45 Temperature Pulse Rate 61 45 L 49 L Pulse Rate [ From Monitor] Respiratory 28 H 28 H 28 H Rate Blood Pressure 146/74 66/30 111/49 O2 Sat by Pulse 74 L 71 L 70 L Oximetry 02/19/21 02/19/21 02/19/21 10:00 10:15 10:30 Temperature Pulse Rate 67 70 67 Pulse Rate [ From Monitor] Respiratory 28 H 25 H 28 H Rate Blood Pressure 140/65 146/70 154/74 O2 Sat by Pulse 62 L 65 L 78 L Oximetry 02/19/21 02/19/21 02/19/21 10:44 10:45 11:00 Temperature Pulse Rate 66 66 Pulse Rate [ From Monitor] Respiratory 28 H 28 H 28 H Rate Blood Pressure 146/78 138/70 O2 Sat by Pulse 77 L 75 L Oximetry 02/19/21 02/19/21 02/19/21 11:15 11:30 11:45 Temperature Pulse Rate 67 69 69 Pulse Rate [ From Monitor] Respiratory 28 H 28 H 28 H Rate Blood Pressure 135/72 136/67 128/68 O2 Sat by Pulse 73 L 71 L 70 L Oximetry 02/19/21 02/19/21 12:00 13:53 Temperature Pulse Rate 68 Pulse Rate [ 70 From Monitor] Respiratory 28 H 28 H Rate Blood Pressure 122/64 O2 Sat by Pulse 67 L Oximetry Constitutional: no acute distress (sedated), other (elderly lady without significant patient ventilator dyssynchrony) Eyes: non-icteric ENT: oropharynx moist, other (ETT 24 cm JANETH) Neck: supple, no lymphadenopathy, no JVD, other (large circumference) Effort: mildly labored Ascultation: Bilateral: diminished breath sounds, rales, other (right anterior chest tube in place; persistent SQ emphysema) Percussion: Bilateral: not dull Cardiovascular: regular rate and rhythm Gastrointestinal: normoactive bowel sounds, soft, non-tender, non-distended Integumentary: normal Extremities: no edema, pulses normal, no ischemia or petechiae, edema Neurologic: pupils equal and round, CN II-XII normal, unable to assess, other (sedated) Psychiatric: other (unable to assess re: AMS) CBC and BMP: 02/20/21 06:10 02/20/21 06:10 ABG, PT/INR, D-dimer: ABG ABG pH 7.406 (7.320-7.450) 02/19/21 04:00 POC ABG pCO2 34.3 mmHg (32.0-48.0) 02/19/21 04:00 ABG pCO2 39.8 mm Hg 02/16/21 10:45 POC ABG pO2 59.8 mmHg (83-108) L 02/19/21 04:00 ABG pO2 37.9 mm Hg (80.0-90.0) L* 02/16/21 10:45 POC ABG HCO3 21.1 02/19/21 04:00 ABG O2 Saturation 89.6 (0-100) 02/19/21 04:00 PT/INR, D-dimer PT 16.9 Sec. (12.2-14.9) H 02/17/21 15:51 INR 1.31 (0.87-1.13) H 02/17/21 15:51 D-Dimer 1769.98 ng/mlDDU (0-234) H 02/18/21 09:45 Abnormal lab findings: Abnormal Labs 02/13/21 02/13/21 02/13/21 12:46 13:28 13:28 WBC RBC Hgb Hct MCV MCH 25 L RDW 15.7 H Lymph % (Auto) 5.9 L Lymph # (Auto) 0.3 L Seg Neutrophils % 89.3 H PT 15.0 H INR APTT 23.8 L Fibrinogen D-Dimer 478.95 H Heparin Anti-Xa Level ABG pH POC ABG pCO2 POC ABG pO2 ABG pO2 ABG O2 Saturation ABG Base Excess ABG Hemoglobin ABG Oxyhemoglobin ABG Sodium ABG Potassium ABG Glucose Oxyhemoglobin Carboxyhemoglobin Potassium Chloride Carbon Dioxide BUN Creatinine Glucose POC Glucose 190 H Lactic Acid Calcium Phosphorus Magnesium TIBC Ferritin AST Lactate Dehydrogenase Total Creatine Kinase Troponin T C-Reactive Protein NT-Pro-B Natriuret Pep Albumin Triglycerides TSH Free T3 Index Arterial Blood Glucose Arterial Blood Ionized Calcium Urine WBC (Auto) Urine Creatinine Salicylates Acetaminophen Coronavirus (PCR) 02/13/21 02/13/21 02/13/21 13:28 13:28 13:28 WBC RBC Hgb Hct MCV MCH RDW Lymph % (Auto) Lymph # (Auto) Seg Neutrophils % PT INR APTT Fibrinogen D-Dimer Heparin Anti-Xa Level ABG pH POC ABG pCO2 POC ABG pO2 ABG pO2 ABG O2 Saturation ABG Base Excess ABG Hemoglobin ABG Oxyhemoglobin ABG Sodium ABG Potassium ABG Glucose Oxyhemoglobin Carboxyhemoglobin Potassium 5.1 H Chloride 95.7 L Carbon Dioxide BUN 36 H Creatinine 2.0 H Glucose 172 H POC Glucose Lactic Acid 6.50 H* Calcium 7.5 L Phosphorus Magnesium TIBC Ferritin AST 81 H Lactate Dehydrogenase Total Creatine Kinase 1572 H Troponin T C-Reactive Protein NT-Pro-B Natriuret Pep Albumin 3.4 L Triglycerides TSH 8.530 H Free T3 Index Arterial Blood Glucose Arterial Blood Ionized Calcium Urine WBC (Auto) Urine Creatinine Salicylates Acetaminophen Coronavirus (PCR) 02/13/21 02/13/21 02/13/21 13:28 13:28 13:28 WBC RBC Hgb Hct MCV MCH RDW Lymph % (Auto) Lymph # (Auto) Seg Neutrophils % PT INR APTT Fibrinogen D-Dimer Heparin Anti-Xa Level ABG pH POC ABG pCO2 POC ABG pO2 ABG pO2 ABG O2 Saturation ABG Base Excess ABG Hemoglobin ABG Oxyhemoglobin ABG Sodium ABG Potassium ABG Glucose Oxyhemoglobin Carboxyhemoglobin Potassium Chloride Carbon Dioxide BUN Creatinine Glucose POC Glucose Lactic Acid Calcium Phosphorus Magnesium 2.60 H TIBC Ferritin AST Lactate Dehydrogenase Total Creatine Kinase Troponin T C-Reactive Protein NT-Pro-B Natriuret Pep Albumin Triglycerides TSH Free T3 Index Arterial Blood Glucose Arterial Blood Ionized Calcium Urine WBC (Auto) Urine Creatinine Salicylates < 0.3 L Acetaminophen 5.0 L Coronavirus (PCR) 02/13/21 02/13/21 02/13/21 13:36 13:36 13:36 WBC RBC Hgb Hct MCV MCH RDW Lymph % (Auto) Lymph # (Auto) Seg Neutrophils % PT INR APTT Fibrinogen D-Dimer Heparin Anti-Xa Level ABG pH POC ABG pCO2 POC ABG pO2 ABG pO2 ABG O2 Saturation ABG Base Excess ABG Hemoglobin ABG Oxyhemoglobin ABG Sodium ABG Potassium ABG Glucose Oxyhemoglobin Carboxyhemoglobin Potassium Chloride Carbon Dioxide BUN Creatinine Glucose 176 H POC Glucose Lactic Acid Calcium Phosphorus Magnesium TIBC Ferritin 1667.0 H AST Lactate Dehydrogenase 713 H Total Creatine Kinase Troponin T C-Reactive Protein 30.70 H NT-Pro-B Natriuret Pep 3473 H Albumin Triglycerides TSH Free T3 Index Arterial Blood Glucose Arterial Blood Ionized Calcium Urine WBC (Auto) Urine Creatinine Salicylates Acetaminophen Coronavirus (PCR) 02/13/21 02/13/21 02/13/21 14:18 16:27 16:27 WBC RBC Hgb Hct MCV MCH RDW Lymph % (Auto) Lymph # (Auto) Seg Neutrophils % PT INR APTT Fibrinogen D-Dimer Heparin Anti-Xa Level ABG pH 7.528 H POC ABG pCO2 POC ABG pO2 49.8 L ABG pO2 ABG O2 Saturation ABG Base Excess ABG Hemoglobin 11.8 L ABG Oxyhemoglobin 85.8 L ABG Sodium ABG Potassium ABG Glucose 180 H Oxyhemoglobin Carboxyhemoglobin Potassium Chloride Carbon Dioxide BUN Creatinine Glucose POC Glucose Lactic Acid 5.30 H* Calcium Phosphorus Magnesium TIBC Ferritin AST Lactate Dehydrogenase Total Creatine Kinase Troponin T 0.034 H D C-Reactive Protein NT-Pro-B Natriuret Pep Albumin Triglycerides 181 H TSH Free T3 Index Arterial Blood Glucose 180 H Arterial Blood Ionized Calcium 3.7 L Urine WBC (Auto) Urine Creatinine Salicylates Acetaminophen Coronavirus (PCR) 08/02/13/21 02/13/21 16:27 18:39 18:39 WBC RBC Hgb Hct MCV MCH RDW Lymph % (Auto) Lymph # (Auto) Seg Neutrophils % PT 15.3 H INR 1.16 H APTT Fibrinogen D-Dimer Heparin Anti-Xa Level ABG pH POC ABG pCO2 POC ABG pO2 ABG pO2 ABG O2 Saturation ABG Base Excess ABG Hemoglobin ABG Oxyhemoglobin ABG Sodium ABG Potassium ABG Glucose Oxyhemoglobin Carboxyhemoglobin Potassium Chloride Carbon Dioxide BUN Creatinine Glucose POC Glucose Lactic Acid 3.80 H* Calcium Phosphorus Magnesium TIBC Ferritin AST Lactate Dehydrogenase Total Creatine Kinase Troponin T 0.033 H C-Reactive Protein NT-Pro-B Natriuret Pep Albumin Triglycerides TSH Free T3 Index Arterial Blood Glucose Arterial Blood Ionized Calcium Urine WBC (Auto) Urine Creatinine Salicylates Acetaminophen Coronavirus (PCR) 02/13/21 02/13/21 02/14/21 21:00 21:27 03:54 WBC RBC Hgb Hct MCV MCH RDW Lymph % (Auto) Lymph # (Auto) Seg Neutrophils % PT INR APTT Fibrinogen D-Dimer Heparin Anti-Xa Level 0.96 H ABG pH POC ABG pCO2 POC ABG pO2 44.5 L ABG pO2 ABG O2 Saturation ABG Base Excess ABG Hemoglobin ABG Oxyhemoglobin 78.3 L ABG Sodium ABG Potassium ABG Glucose 181 H Oxyhemoglobin Carboxyhemoglobin Potassium Chloride Carbon Dioxide BUN Creatinine Glucose POC Glucose Lactic Acid Calcium Phosphorus Magnesium TIBC Ferritin AST Lactate Dehydrogenase Total Creatine Kinase Troponin T C-Reactive Protein NT-Pro-B Natriuret Pep Albumin Triglycerides TSH Free T3 Index Arterial Blood Glucose 181 H Arterial Blood Ionized Calcium 4.2 L Urine WBC (Auto) 31.0 H Urine Creatinine Salicylates Acetaminophen Coronavirus (PCR) 02/14/21 02/14/21 02/14/21 03:54 10:40 10:40 WBC RBC Hgb Hct MCV MCH RDW Lymph % (Auto) Lymph # (Auto) Seg Neutrophils % PT INR APTT Fibrinogen D-Dimer 1007.53 H Heparin Anti-Xa Level ABG pH POC ABG pCO2 POC ABG pO2 ABG pO2 ABG O2 Saturation ABG Base Excess ABG Hemoglobin ABG Oxyhemoglobin ABG Sodium ABG Potassium ABG Glucose Oxyhemoglobin Carboxyhemoglobin Potassium Chloride Carbon Dioxide BUN 41 H Creatinine 2.4 H Glucose 210 H POC Glucose Lactic Acid Calcium 7.7 L Phosphorus Magnesium TIBC Ferritin 1148.0 H AST Lactate Dehydrogenase Total Creatine Kinase Troponin T C-Reactive Protein NT-Pro-B Natriuret Pep Albumin Triglycerides TSH Free T3 Index Arterial Blood Glucose Arterial Blood Ionized Calcium Urine WBC (Auto) Urine Creatinine Salicylates Acetaminophen Coronavirus (PCR) 02/14/21 02/14/21 02/14/21 10:40 11:33 17:51 WBC RBC Hgb Hct MCV MCH RDW Lymph % (Auto) Lymph # (Auto) Seg Neutrophils % PT INR APTT Fibrinogen D-Dimer Heparin Anti-Xa Level ABG pH 7.285 L POC ABG pCO2 51.7 H POC ABG pO2 36.7 L ABG pO2 ABG O2 Saturation ABG Base Excess ABG Hemoglobin ABG Oxyhemoglobin 57.9 L ABG Sodium ABG Potassium ABG Glucose 310 H Oxyhemoglobin Carboxyhemoglobin Potassium Chloride Carbon Dioxide BUN Creatinine Glucose POC Glucose 265 H Lactic Acid Calcium Phosphorus Magnesium TIBC Ferritin AST Lactate Dehydrogenase 1381 H Total Creatine Kinase Troponin T C-Reactive Protein 36.70 H NT-Pro-B Natriuret Pep Albumin Triglycerides TSH Free T3 Index Arterial Blood Glucose 310 H Arterial Blood Ionized Calcium 3.9 L Urine WBC (Auto) Urine Creatinine Salicylates Acetaminophen Coronavirus (PCR) 02/14/21 02/14/21 02/14/21 18:00 18:15 18:33 WBC RBC Hgb Hct MCV MCH RDW Lymph % (Auto) Lymph # (Auto) Seg Neutrophils % PT INR APTT Fibrinogen D-Dimer Heparin Anti-Xa Level 1.09 H ABG pH POC ABG pCO2 POC ABG pO2 41.4 L ABG pO2 ABG O2 Saturation ABG Base Excess ABG Hemoglobin ABG Oxyhemoglobin 70.5 L ABG Sodium ABG Potassium ABG Glucose 308 H Oxyhemoglobin Carboxyhemoglobin Potassium Chloride Carbon Dioxide BUN Creatinine Glucose POC Glucose 260 H Lactic Acid Calcium Phosphorus Magnesium TIBC Ferritin AST Lactate Dehydrogenase Total Creatine Kinase Troponin T C-Reactive Protein NT-Pro-B Natriuret Pep Albumin Triglycerides TSH Free T3 Index Arterial Blood Glucose 308 H Arterial Blood Ionized Calcium 4.0 L Urine WBC (Auto) Urine Creatinine Salicylates Acetaminophen Coronavirus (PCR) 02/14/21 02/14/21 02/14/21 18:45 18:45 Unknown WBC RBC Hgb Hct MCV MCH RDW Lymph % (Auto) Lymph # (Auto) Seg Neutrophils % PT INR APTT Fibrinogen D-Dimer Heparin Anti-Xa Level ABG pH POC ABG pCO2 POC ABG pO2 ABG pO2 ABG O2 Saturation ABG Base Excess ABG Hemoglobin ABG Oxyhemoglobin ABG Sodium ABG Potassium ABG Glucose Oxyhemoglobin Carboxyhemoglobin Potassium Chloride Carbon Dioxide BUN Creatinine Glucose POC Glucose Lactic Acid 2.70 H* Calcium Phosphorus Magnesium TIBC Ferritin AST Lactate Dehydrogenase Total Creatine Kinase Troponin T C-Reactive Protein NT-Pro-B Natriuret Pep Albumin Triglycerides TSH Free T3 Index Arterial Blood Glucose Arterial Blood Ionized Calcium Urine WBC (Auto) Urine Creatinine 80.0 H Salicylates Acetaminophen Coronavirus (PCR) Positive A 02/15/21 02/15/21 02/15/21 00:25 04:07 05:00 WBC 16.0 H RBC Hgb Hct MCV 77 L MCH 25 L RDW 16.1 H Lymph % (Auto) Lymph # (Auto) Seg Neutrophils % PT INR APTT Fibrinogen D-Dimer Heparin Anti-Xa Level ABG pH POC ABG pCO2 POC ABG pO2 53.2 L ABG pO2 ABG O2 Saturation ABG Base Excess ABG Hemoglobin ABG Oxyhemoglobin 85.1 L ABG Sodium ABG Potassium ABG Glucose 257 H Oxyhemoglobin Carboxyhemoglobin 0.4 L Potassium Chloride Carbon Dioxide BUN Creatinine Glucose POC Glucose 256 H Lactic Acid Calcium Phosphorus Magnesium TIBC Ferritin AST Lactate Dehydrogenase Total Creatine Kinase Troponin T C-Reactive Protein NT-Pro-B Natriuret Pep Albumin Triglycerides TSH Free T3 Index Arterial Blood Glucose 257 H Arterial Blood Ionized Calcium 3.8 L Urine WBC (Auto) Urine Creatinine Salicylates Acetaminophen Coronavirus (PCR) 02/15/21 02/15/21 02/15/21 05:00 05:00 05:43 WBC RBC Hgb Hct MCV MCH RDW Lymph % (Auto) Lymph # (Auto) Seg Neutrophils % PT INR APTT Fibrinogen D-Dimer Heparin Anti-Xa Level 0.92 H ABG pH POC ABG pCO2 POC ABG pO2 ABG pO2 ABG O2 Saturation ABG Base Excess ABG Hemoglobin ABG Oxyhemoglobin ABG Sodium ABG Potassium ABG Glucose Oxyhemoglobin Carboxyhemoglobin Potassium Chloride Carbon Dioxide BUN 50 H Creatinine 3.2 H Glucose 247 H POC Glucose 253 H Lactic Acid Calcium 7.0 L Phosphorus Magnesium TIBC Ferritin AST Lactate Dehydrogenase Total Creatine Kinase Troponin T C-Reactive Protein NT-Pro-B Natriuret Pep Albumin Triglycerides TSH Free T3 Index Arterial Blood Glucose Arterial Blood Ionized Calcium Urine WBC (Auto) Urine Creatinine Salicylates Acetaminophen Coronavirus (PCR) 02/15/21 02/15/21 02/15/21 12:11 15:36 23:29 WBC RBC Hgb Hct MCV MCH RDW Lymph % (Auto) Lymph # (Auto) Seg Neutrophils % PT INR APTT Fibrinogen D-Dimer Heparin Anti-Xa Level ABG pH POC ABG pCO2 POC ABG pO2 ABG pO2 ABG O2 Saturation ABG Base Excess ABG Hemoglobin ABG Oxyhemoglobin ABG Sodium ABG Potassium ABG Glucose Oxyhemoglobin Carboxyhemoglobin Potassium Chloride Carbon Dioxide BUN Creatinine Glucose POC Glucose 145 H 200 H 220 H Lactic Acid Calcium Phosphorus Magnesium TIBC Ferritin AST Lactate Dehydrogenase Total Creatine Kinase Troponin T C-Reactive Protein NT-Pro-B Natriuret Pep Albumin Triglycerides TSH Free T3 Index Arterial Blood Glucose Arterial Blood Ionized Calcium Urine WBC (Auto) Urine Creatinine Salicylates Acetaminophen Coronavirus (PCR) 02/16/21 02/16/21 02/16/21 01:31 04:00 04:30 WBC RBC Hgb Hct MCV MCH RDW Lymph % (Auto) Lymph # (Auto) Seg Neutrophils % PT INR APTT Fibrinogen D-Dimer Heparin Anti-Xa Level ABG pH 7.243 L POC ABG pCO2 48.6 H POC ABG pO2 57.1 L ABG pO2 ABG O2 Saturation ABG Base Excess ABG Hemoglobin ABG Oxyhemoglobin 82.1 L ABG Sodium ABG Potassium ABG Glucose 287 H Oxyhemoglobin Carboxyhemoglobin Potassium Chloride Carbon Dioxide BUN 66 H Creatinine 4.0 H Glucose 277 H POC Glucose 241 H Lactic Acid Calcium 7.5 L Phosphorus Magnesium TIBC Ferritin AST Lactate Dehydrogenase Total Creatine Kinase Troponin T C-Reactive Protein NT-Pro-B Natriuret Pep Albumin Triglycerides 351 H TSH Free T3 Index Arterial Blood Glucose 287 H Arterial Blood Ionized Calcium 4.0 L Urine WBC (Auto) Urine Creatinine Salicylates Acetaminophen Coronavirus (PCR) 02/16/21 02/16/21 02/16/21 04:30 05:06 08:00 WBC RBC Hgb Hct MCV MCH RDW Lymph % (Auto) Lymph # (Auto) Seg Neutrophils % PT INR APTT Fibrinogen D-Dimer Heparin Anti-Xa Level ABG pH 7.292 L POC ABG pCO2 POC ABG pO2 33.5 L ABG pO2 ABG O2 Saturation ABG Base Excess ABG Hemoglobin ABG Oxyhemoglobin 55.0 L ABG Sodium ABG Potassium 4.7 H ABG Glucose 249 H Oxyhemoglobin Carboxyhemoglobin 0.4 L Potassium Chloride Carbon Dioxide BUN Creatinine Glucose POC Glucose 242 H Lactic Acid Calcium Phosphorus Magnesium TIBC Ferritin AST Lactate Dehydrogenase Total Creatine Kinase Troponin T C-Reactive Protein NT-Pro-B Natriuret Pep Albumin Triglycerides TSH Free T3 Index 0.8 L Arterial Blood Glucose 249 H Arterial Blood Ionized Calcium 3.7 L Urine WBC (Auto) Urine Creatinine Salicylates Acetaminophen Coronavirus (PCR) 02/16/21 02/16/21 02/16/21 10:10 10:31 10:31 WBC RBC Hgb Hct MCV MCH RDW Lymph % (Auto) Lymph # (Auto) Seg Neutrophils % PT INR APTT Fibrinogen D-Dimer 2846.74 H Heparin Anti-Xa Level ABG pH POC ABG pCO2 POC ABG pO2 30.7 L ABG pO2 ABG O2 Saturation ABG Base Excess ABG Hemoglobin ABG Oxyhemoglobin 50.9 L ABG Sodium ABG Potassium 4.6 H ABG Glucose 215 H Oxyhemoglobin Carboxyhemoglobin Potassium Chloride Carbon Dioxide BUN Creatinine Glucose POC Glucose Lactic Acid Calcium Phosphorus Magnesium TIBC Ferritin 1164.0 H AST Lactate Dehydrogenase Total Creatine Kinase Troponin T C-Reactive Protein NT-Pro-B Natriuret Pep Albumin Triglycerides TSH Free T3 Index Arterial Blood Glucose 215 H Arterial Blood Ionized Calcium 3.7 L Urine WBC (Auto) Urine Creatinine Salicylates Acetaminophen Coronavirus (PCR) 02/16/21 02/16/21 02/16/21 10:31 10:45 12:06 WBC RBC Hgb Hct MCV MCH RDW Lymph % (Auto) Lymph # (Auto) Seg Neutrophils % PT INR APTT Fibrinogen D-Dimer Heparin Anti-Xa Level ABG pH 7.330 L POC ABG pCO2 POC ABG pO2 ABG pO2 37.9 L* ABG O2 Saturation 64.0 L ABG Base Excess -5.0 L ABG Hemoglobin 11.8 L ABG Oxyhemoglobin ABG Sodium ABG Potassium ABG Glucose Oxyhemoglobin 62.7 L Carboxyhemoglobin Potassium Chloride Carbon Dioxide BUN Creatinine Glucose POC Glucose 223 H Lactic Acid Calcium Phosphorus Magnesium TIBC Ferritin AST Lactate Dehydrogenase 1678 H Total Creatine Kinase Troponin T C-Reactive Protein 33.10 H NT-Pro-B Natriuret Pep Albumin Triglycerides TSH Free T3 Index Arterial Blood Glucose Arterial Blood Ionized Calcium Urine WBC (Auto) Urine Creatinine Salicylates Acetaminophen Coronavirus (PCR) 02/16/21 02/16/21 02/16/21 13:23 17:24 20:08 WBC 20.3 H RBC 6.08 H Hgb 15.1 H D Hct 45.9 H D MCV 75 L MCH 25 L RDW 16.4 H Lymph % (Auto) Lymph # (Auto) Seg Neutrophils % PT INR APTT Fibrinogen D-Dimer Heparin Anti-Xa Level 1.06 H ABG pH POC ABG pCO2 POC ABG pO2 ABG pO2 ABG O2 Saturation ABG Base Excess ABG Hemoglobin ABG Oxyhemoglobin ABG Sodium ABG Potassium ABG Glucose Oxyhemoglobin Carboxyhemoglobin Potassium Chloride Carbon Dioxide BUN Creatinine Glucose POC Glucose 272 H Lactic Acid Calcium Phosphorus Magnesium TIBC Ferritin AST Lactate Dehydrogenase Total Creatine Kinase Troponin T C-Reactive Protein NT-Pro-B Natriuret Pep Albumin Triglycerides TSH Free T3 Index Arterial Blood Glucose Arterial Blood Ionized Calcium Urine WBC (Auto) Urine Creatinine Salicylates Acetaminophen Coronavirus (PCR) 02/16/21 02/17/21 02/17/21 23:57 04:00 04:30 WBC 12.5 H RBC Hgb 9.2 L D Hct 28.4 L D MCV 76 L MCH 25 L RDW 15.9 H Lymph % (Auto) Lymph # (Auto) Seg Neutrophils % PT INR APTT Fibrinogen D-Dimer Heparin Anti-Xa Level ABG pH POC ABG pCO2 28.7 L POC ABG pO2 59.0 L ABG pO2 ABG O2 Saturation ABG Base Excess ABG Hemoglobin 10.2 L ABG Oxyhemoglobin 90.3 L ABG Sodium 134.8 L ABG Potassium 3.3 L ABG Glucose 280 H Oxyhemoglobin Carboxyhemoglobin 0.1 L Potassium Chloride Carbon Dioxide BUN Creatinine Glucose POC Glucose 245 H Lactic Acid Calcium Phosphorus Magnesium TIBC Ferritin AST Lactate Dehydrogenase Total Creatine Kinase Troponin T C-Reactive Protein NT-Pro-B Natriuret Pep Albumin Triglycerides TSH Free T3 Index Arterial Blood Glucose 280 H Arterial Blood Ionized Calcium 3.5 L Urine WBC (Auto) Urine Creatinine Salicylates Acetaminophen Coronavirus (PCR) 02/17/21 02/17/21 02/17/21 04:30 04:30 05:48 WBC RBC Hgb Hct MCV MCH RDW Lymph % (Auto) Lymph # (Auto) Seg Neutrophils % PT INR APTT Fibrinogen D-Dimer Heparin Anti-Xa Level ABG pH POC ABG pCO2 POC ABG pO2 ABG pO2 ABG O2 Saturation ABG Base Excess ABG Hemoglobin ABG Oxyhemoglobin ABG Sodium ABG Potassium ABG Glucose Oxyhemoglobin Carboxyhemoglobin Potassium 3.4 L D Chloride Carbon Dioxide 20 L BUN 81 H Creatinine 5.1 H Glucose 260 H POC Glucose 237 H Lactic Acid Calcium 6.3 L D Phosphorus Magnesium 2.40 H TIBC Ferritin AST Lactate Dehydrogenase Total Creatine Kinase Troponin T C-Reactive Protein NT-Pro-B Natriuret Pep Albumin Triglycerides TSH Free T3 Index Arterial Blood Glucose Arterial Blood Ionized Calcium Urine WBC (Auto) Urine Creatinine Salicylates Acetaminophen Coronavirus (PCR) 02/17/21 02/17/21 02/17/21 12:07 12:59 15:51 WBC 12.8 H RBC 3.57 L Hgb 9.0 L Hct 27.0 L MCV 76 L MCH 25 L RDW 16.2 H Lymph % (Auto) Lymph # (Auto) Seg Neutrophils % PT INR APTT Fibrinogen D-Dimer Heparin Anti-Xa Level ABG pH POC ABG pCO2 POC ABG pO2 ABG pO2 ABG O2 Saturation ABG Base Excess ABG Hemoglobin ABG Oxyhemoglobin ABG Sodium ABG Potassium ABG Glucose Oxyhemoglobin Carboxyhemoglobin Potassium Chloride Carbon Dioxide BUN Creatinine Glucose POC Glucose 280 H Lactic Acid Calcium Phosphorus Magnesium 2.70 H TIBC 231 L Ferritin AST Lactate Dehydrogenase Total Creatine Kinase Troponin T C-Reactive Protein NT-Pro-B Natriuret Pep Albumin Triglycerides TSH Free T3 Index Arterial Blood Glucose Arterial Blood Ionized Calcium Urine WBC (Auto) Urine Creatinine Salicylates Acetaminophen Coronavirus (PCR) 02/17/21 02/17/21 02/17/21 15:51 15:51 17:27 WBC RBC Hgb Hct MCV MCH RDW Lymph % (Auto) Lymph # (Auto) Seg Neutrophils % PT 16.9 H INR 1.31 H APTT 90.0 H* Fibrinogen 859 H D-Dimer Heparin Anti-Xa Level ABG pH POC ABG pCO2 POC ABG pO2 ABG pO2 ABG O2 Saturation ABG Base Excess ABG Hemoglobin ABG Oxyhemoglobin ABG Sodium ABG Potassium ABG Glucose Oxyhemoglobin Carboxyhemoglobin Potassium Chloride Carbon Dioxide 17 L BUN 88 H Creatinine 5.1 H Glucose 330 H POC Glucose 294 H Lactic Acid Calcium Phosphorus Magnesium TIBC Ferritin AST Lactate Dehydrogenase Total Creatine Kinase Troponin T C-Reactive Protein NT-Pro-B Natriuret Pep Albumin 3.0 L Triglycerides TSH Free T3 Index Arterial Blood Glucose Arterial Blood Ionized Calcium Urine WBC (Auto) Urine Creatinine Salicylates Acetaminophen Coronavirus (PCR) 02/17/21 02/18/21 02/18/21 23:22 03:00 03:39 WBC 11.5 H RBC 3.18 L Hgb 8.1 L Hct 24.2 L MCV 76 L MCH 26 L RDW 15.8 H Lymph % (Auto) Lymph # (Auto) Seg Neutrophils % PT INR APTT Fibrinogen D-Dimer Heparin Anti-Xa Level ABG pH 7.315 L POC ABG pCO2 POC ABG pO2 66.9 L ABG pO2 ABG O2 Saturation ABG Base Excess ABG Hemoglobin 8.8 L ABG Oxyhemoglobin 90.2 L ABG Sodium ABG Potassium ABG Glucose 290 H Oxyhemoglobin Carboxyhemoglobin 0.3 L Potassium Chloride Carbon Dioxide BUN Creatinine Glucose POC Glucose 252 H Lactic Acid Calcium Phosphorus Magnesium TIBC Ferritin AST Lactate Dehydrogenase Total Creatine Kinase Troponin T C-Reactive Protein NT-Pro-B Natriuret Pep Albumin Triglycerides TSH Free T3 Index Arterial Blood Glucose 290 H Arterial Blood Ionized Calcium 3.4 L Urine WBC (Auto) Urine Creatinine Salicylates Acetaminophen Coronavirus (PCR) 02/18/21 02/18/21 02/18/21 03:39 04:00 06:11 WBC RBC Hgb Hct MCV MCH RDW Lymph % (Auto) Lymph # (Auto) Seg Neutrophils % PT INR APTT Fibrinogen D-Dimer Heparin Anti-Xa Level ABG pH POC ABG pCO2 POC ABG pO2 ABG pO2 ABG O2 Saturation ABG Base Excess ABG Hemoglobin ABG Oxyhemoglobin ABG Sodium ABG Potassium ABG Glucose Oxyhemoglobin Carboxyhemoglobin Potassium Chloride Carbon Dioxide 18 L BUN 95 H Creatinine 5.4 H Glucose 270 H POC Glucose 260 H Lactic Acid Calcium 6.3 L D Phosphorus Magnesium 2.60 H TIBC Ferritin AST Lactate Dehydrogenase Total Creatine Kinase Troponin T C-Reactive Protein NT-Pro-B Natriuret Pep Albumin Triglycerides 717 H TSH Free T3 Index Arterial Blood Glucose Arterial Blood Ionized Calcium Urine WBC (Auto) Urine Creatinine Salicylates Acetaminophen Coronavirus (PCR) 02/18/21 02/18/21 02/18/21 09:45 09:45 09:45 WBC RBC Hgb Hct MCV MCH RDW Lymph % (Auto) Lymph # (Auto) Seg Neutrophils % PT INR APTT Fibrinogen D-Dimer 1769.98 H Heparin Anti-Xa Level ABG pH POC ABG pCO2 POC ABG pO2 ABG pO2 ABG O2 Saturation ABG Base Excess ABG Hemoglobin ABG Oxyhemoglobin ABG Sodium ABG Potassium ABG Glucose Oxyhemoglobin Carboxyhemoglobin Potassium Chloride Carbon Dioxide BUN Creatinine Glucose POC Glucose Lactic Acid Calcium Phosphorus Magnesium TIBC Ferritin 902.0 H AST Lactate Dehydrogenase 784 H Total Creatine Kinase Troponin T C-Reactive Protein 20.30 H NT-Pro-B Natriuret Pep Albumin Triglycerides TSH Free T3 Index Arterial Blood Glucose Arterial Blood Ionized Calcium Urine WBC (Auto) Urine Creatinine Salicylates Acetaminophen Coronavirus (PCR) 02/18/21 02/18/21 02/18/21 11:16 17:59 23:32 WBC RBC Hgb Hct MCV MCH RDW Lymph % (Auto) Lymph # (Auto) Seg Neutrophils % PT INR APTT Fibrinogen D-Dimer Heparin Anti-Xa Level ABG pH POC ABG pCO2 POC ABG pO2 ABG pO2 ABG O2 Saturation ABG Base Excess ABG Hemoglobin ABG Oxyhemoglobin ABG Sodium ABG Potassium ABG Glucose Oxyhemoglobin Carboxyhemoglobin Potassium Chloride Carbon Dioxide BUN Creatinine Glucose POC Glucose 306 H 271 H 222 H Lactic Acid Calcium Phosphorus Magnesium TIBC Ferritin AST Lactate Dehydrogenase Total Creatine Kinase Troponin T C-Reactive Protein NT-Pro-B Natriuret Pep Albumin Triglycerides TSH Free T3 Index Arterial Blood Glucose Arterial Blood Ionized Calcium Urine WBC (Auto) Urine Creatinine Salicylates Acetaminophen Coronavirus (PCR) 02/19/21 02/19/21 02/19/21 04:00 04:25 04:25 WBC 13.6 H RBC 2.99 L Hgb 7.6 L Hct 22.8 L MCV 76 L MCH 25 L RDW 16.0 H Lymph % (Auto) Lymph # (Auto) Seg Neutrophils % PT INR APTT Fibrinogen D-Dimer Heparin Anti-Xa Level < 0.10 L ABG pH POC ABG pCO2 POC ABG pO2 59.8 L ABG pO2 ABG O2 Saturation ABG Base Excess ABG Hemoglobin 8.0 L ABG Oxyhemoglobin 88.6 L ABG Sodium ABG Potassium ABG Glucose 340 H Oxyhemoglobin Carboxyhemoglobin Potassium Chloride Carbon Dioxide BUN Creatinine Glucose POC Glucose Lactic Acid Calcium Phosphorus Magnesium TIBC Ferritin AST Lactate Dehydrogenase Total Creatine Kinase Troponin T C-Reactive Protein NT-Pro-B Natriuret Pep Albumin Triglycerides TSH Free T3 Index Arterial Blood Glucose 340 H Arterial Blood Ionized Calcium 3.8 L Urine WBC (Auto) Urine Creatinine Salicylates Acetaminophen Coronavirus (PCR) 02/19/21 02/19/21 02/19/21 04:25 04:53 08:05 WBC RBC Hgb Hct MCV MCH RDW Lymph % (Auto) Lymph # (Auto) Seg Neutrophils % PT INR APTT Fibrinogen D-Dimer Heparin Anti-Xa Level ABG pH POC ABG pCO2 POC ABG pO2 ABG pO2 ABG O2 Saturation ABG Base Excess ABG Hemoglobin ABG Oxyhemoglobin ABG Sodium ABG Potassium ABG Glucose Oxyhemoglobin Carboxyhemoglobin Potassium Chloride 97.1 L Carbon Dioxide BUN 71 H 72 H Creatinine 4.1 H 4.0 H Glucose 318 H 346 H POC Glucose 293 H Lactic Acid Calcium 8.1 L D 7.5 L Phosphorus 5.00 H Magnesium 2.40 H TIBC Ferritin AST Lactate Dehydrogenase Total Creatine Kinase Troponin T C-Reactive Protein NT-Pro-B Natriuret Pep Albumin 3.8 L Triglycerides TSH Free T3 Index Arterial Blood Glucose Arterial Blood Ionized Calcium Urine WBC (Auto) Urine Creatinine Salicylates Acetaminophen Coronavirus (PCR) 02/19/21 12:37 WBC RBC Hgb Hct MCV MCH RDW Lymph % (Auto) Lymph # (Auto) Seg Neutrophils % PT INR APTT Fibrinogen D-Dimer Heparin Anti-Xa Level ABG pH POC ABG pCO2 POC ABG pO2 ABG pO2 ABG O2 Saturation ABG Base Excess ABG Hemoglobin ABG Oxyhemoglobin ABG Sodium ABG Potassium ABG Glucose Oxyhemoglobin Carboxyhemoglobin Potassium Chloride Carbon Dioxide BUN Creatinine Glucose POC Glucose 306 H Lactic Acid Calcium Phosphorus Magnesium TIBC Ferritin AST Lactate Dehydrogenase Total Creatine Kinase Troponin T C-Reactive Protein NT-Pro-B Natriuret Pep Albumin Triglycerides TSH Free T3 Index Arterial Blood Glucose Arterial Blood Ionized Calcium Urine WBC (Auto) Urine Creatinine Salicylates Acetaminophen Coronavirus (PCR) Chest x-ray: image reviewed (minimal left PTX despite chest tube in place) Allied health notes reviewed: nursing
--- NOTE | 2021-02-19 16:09 | Progress Note ---
<SHANTEL GARCIA - Last Filed: 02/19/21 16:21> Assessment and Plan Assessment and plan: 70 YO Female with Obesity Hypoventilation Syndrome, HTN, Hypothyroidism admitted with COVID-19 pneumonia, sepsis, acute respiratory failure A/P NEURO: metabolic encephalopathy; sedated -RASS goal neg 2-3 -Delirium -Sedated with fentanyl, propofol, Versed -SAT daily as allowed with oxygenation -NOK daugther CV- hypotension due to sepsis/sedation; bradycardia in part due to hypoxia; hx HTN -MAP > 65 -SB-SR -Dopamine drip fro SB -Vasopressor/ norepinephrine, wean as tolerated -Blood pressure monitor per protocol Resp- ARDS; acute hypoxic resp failure due to covid19 pna; hx hypoventilation syndrome -Intubated 02-13 with 7.5 oett at 22 at the lips -Mechanical vent- see RT notes for changes -02/18 ABG and CXR reviewed -Right chest tube to wall suction -AM vent settings: ACPCV: Rate 18, PEEP 28, [id number] -patient desaturated this mid morning and PEEP was increased to 30 -Dr. Vasquez and Dr. Jefferson aware -SPO2 monitoring -VAP bundle -Daily ABGs and CXR GI: risk protein cynthia malnutrition, GBI -TF -Nutrition following -guic positive -GI consulted, appreciate recommendations -PPI iv bid -s/p heparin gtt - SONIA/ ATN/ metabolic acidosis -nephrology following -HD initated 02/16 -HD per nephrology -Past 24-hour +957 -Cho catheter -Trend BMP -strict I/O -daily weight Heme- coagulopathic with covid -VTE heparin gtt d/c d/t bleeding -SCDs to bilateral lower extremities while in bed -trend CBC and coags ID- covid19 pna with resulting sepsis -covid pos 02-14 -ID following -s/p azithro and ceftriaxone -Patient was not given remdesivir given SONIA -Patient is not a candidate for Actemra given procalcitonin per ID -Methylprednisone -Trend COVID-19 inflammatory markers -Droplet/precautions -Anticoagulation per protocol as tolerated -Follow culture data Endo -hx DM with hyperglycemia; morbid obesity; hx hypothyrodism -Lantus nightly, titrate as needed -SSI -Avoid hypoglycemia -Restarted home levothyroxine -Accu-Cheks every 6 The high probability of a clinically significant, sudden or life threatening det erioration of the all] system(s) required my full and direct attention, intervention and personal management. The aggregate critical care time was [90] minutes. This time is in addition to time spent performing reported procedures but includes the following: [x] Data Review and interpretation [x] Patient assessment and monitoring of vital signs [x] Documentation [x] Medication orders and management Disposition Plan: icu Total Time Spent with Patient (Minutes): 90 History Interval history: 70 YO Female with Obesity Hypoventilation Syndrome, HTN, Hypothyroidism presents to ED for evaluation. Patient is intubated and on ventilatory support at the time my evaluation is unable to write history. Patient history provided by EMS staff, ED staff, as well as the patient family was made available by telephone for interview. As per daughter the patient was in her usual state of health around bedtime which was 2100 hrs. The patient was found down and unresponsive this morning. EMS was notified and upon arrival the patient was found to be in respiratory distress with a pulse oximetry of 50%. The patient was transported to [facility] for further care and evaluation of the aforementioned symptoms. The patient was seen and evaluated in the emergency department. All lab and imaging studies reviewed. The patient was found to have a pulse oximetry in the 60s which is consistent with acute hypoxemic respiratory failure. The patient was deemed unable to protect her airway and was intubated and placed on ventilatory support. The patient was found to have a blood pressure of 69/33. The patient was also found to have pneumonia on chest x-ray which was complicated by septic shock, metabolic acidosis, toxic metabolic encephalopathy, acute kidney injury. Patient admitted to ICU due to multiple organ system failure. Critical care care team consulted in ED. Patient initiated on sepsis protocol as well as coronavirus protocol. Patient found to have poor prognosis. Advanced care planning conducted in ED. No prior admission for review. No medication listed at time of admission for rec onciliation. 02-13 Admitted through ER 02-14 proned; when supined this AM became hypoxic- took some time to recover 02/15 desaturated when supined this AM- now recovered 02/16: Saturation issues->increased sedation which resolved it today, Nephro to initiate HD in 24-48 hours, trialysis placed. 02/[address] for pneumo placed 02/18: Patient had a coughing fit and desaturated and zina to 30s overnight. 02/19: GI signed off todAY. Patient desaturated mid morning and peep was increased to 20 and slowly recovered to 70s. Dr Jefferson informed daughter of events who still wishes for her mother to be a full code. Hospitalist Physical - Constitutional Vitals: Temp Pulse Resp BP Pulse Ox 97.6 F 69 28 H 114/62 71 L 02/19/21 08:33 02/19/21 15:35 02/19/21 15:15 02/19/21 15:35 02/19/21 15:35 General appearance: Present: well-nourished, obese - Respiratory Respiratory effort: normal Respiratory: bilateral: diminished - Cardiovascular Rhythm: regular Heart Sounds: Present: S1 & S2 - Extremities Extremities: no ischemia, pulses intact, pulses symmetrical, normal color Peripheral Pulses: within normal limits - Abdominal General gastrointestinal: soft, non-tender, normal bowel sounds - Integumentary Integumentary: Present: warm, dry - Psychiatric Psychiatric: other (sedated) - Neurologic Neurologic: other (sedated) - Allied Health Allied health notes reviewed: nursing, RT HEART Score - HEART Score Troponin: Troponin T 0.033 ng/mL (0.00-0.029) H 02/13/21 18:39 Results - Labs CBC & Chem 7: 02/19/21 04:25 02/19/21 08:05 Labs: Laboratory Last Values WBC 13.6 K/mm3 (4.5-11.0) H 02/19/21 04:25 RBC 2.99 M/mm3 (3.65-5.03) L 02/19/21 04:25 Hgb 7.6 gm/dl (10.1-14.3) L 02/19/21 04:25 Hct 22.8 % (30.3-42.9) L 02/19/21 04:25 MCV 76 fl (79-97) L 02/19/21 04:25 MCH 25 pg (28-32) L 02/19/21 04:25 MCHC 33 % (30-34) 02/19/21 04:25 RDW 16.0 % (13.2-15.2) H 02/19/21 04:25 Plt Count 212 K/mm3 (140-440) 02/19/21 04:25 Lymph % (Auto) 5.9 % (13.4-35.0) L 02/13/21 13:28 Wallace % (Auto) 4.5 % (0.0-7.3) 02/13/21 13:28 Eos % (Auto) 0.0 % (0.0-4.3) 02/13/21 13:28 Baso % (Auto) 0.3 % (0.0-1.8) 02/13/21 13:28 Lymph # (Auto) 0.3 K/mm3 (1.2-5.4) L 02/13/21 13:28 Wallace # (Auto) 0.3 K/mm3 (0.0-0.8) 02/13/21 13:28 Eos # (Auto) 0.0 K/mm3 (0.0-0.4) 02/13/21 13:28 Baso # (Auto) 0.0 K/mm3 (0.0-0.1) 02/13/21 13:28 Seg Neutrophils % 89.3 % (40.0-70.0) H 02/13/21 13:28 Seg Neutrophils # 5.2 K/mm3 (1.8-7.7) 02/13/21 13:28 PT 16.9 Sec. (12.2-14.9) H 02/17/21 15:51 INR 1.31 (0.87-1.13) H 02/17/21 15:51 APTT 90.0 Sec. (24.2-36.6) H* 02/17/21 15:51 Fibrinogen 859 mg/dl (211-480) H 02/17/21 15:51 D-Dimer 1769.98 ng/mlDDU (0-234) H 02/18/21 09:45 Heparin Anti-Xa Level < 0.10 U.I./ml (0.3-0.7) L 02/19/21 04:25 ABG pH 7.406 (7.320-7.450) 02/19/21 04:00 POC ABG pCO2 34.3 mmHg (32.0-48.0) 02/19/21 04:00 ABG pCO2 39.8 mm Hg 02/16/21 10:45 POC ABG pO2 59.8 mmHg (83-108) L 02/19/21 04:00 ABG pO2 37.9 mm Hg (80.0-90.0) L* 02/16/21 10:45 POC ABG HCO3 21.1 02/19/21 04:00 ABG HCO3 20.5 mmol/L (20.0-26.0) 02/16/21 10:45 ABG O2 Saturation 89.6 (0-100) 02/19/21 04:00 ABG O2 Content 10.4 (0.0-44) 02/16/21 10:45 POC ABG Base Excess -3.2 02/19/21 04:00 ABG Base Excess -5.0 mmol/L (-2.0-3.0) L 02/16/21 10:45 ABG Hemoglobin 8.0 (12.0-17.5) L 02/19/21 04:00 ABG Oxyhemoglobin 88.6 (94-98) L 02/19/21 04:00 ABG Carboxyhemoglobin 1.2 % (0.0-5.0) 02/16/21 10:45 ABG Methemoglobin 0.3 (0.0-1.5) 02/19/21 04:00 ABG Sodium 136.8 mmol/L (136.0-145.0) 02/19/21 04:00 ABG Potassium 3.7 mmol/L (3.40-4.50) 02/19/21 04:00 ABG Chloride 103.0 mmol/L (98-107) 02/19/21 04:00 ABG Glucose 340 mg/dL (65-95) H 02/19/21 04:00 Oxyhemoglobin 62.7 % (95.0-99.0) L 02/16/21 10:45 Carboxyhemoglobin 0.8 (0.5-1.5) 02/19/21 04:00 FiO2 100 % 02/16/21 10:45 FiO2 % 100.0 02/19/21 04:00 Sodium 137 mmol/L (137-145) 02/19/21 08:05 Potassium 3.9 mmol/L (3.6-5.0) 02/19/21 08:05 Chloride 97.1 mmol/L (98-107) L 02/19/21 08:05 Carbon Dioxide 22 mmol/L (22-30) 02/19/21 08:05 Anion Gap 22 mmol/L 02/19/21 08:05 BUN 72 mg/dL (7-17) H 02/19/21 08:05 Creatinine 4.0 mg/dL (0.6-1.2) H 02/19/21 08:05 Estimated GFR 13 ml/min 02/19/21 08:05 BUN/Creatinine Ratio 18 % 02/19/21 08:05 Glucose 346 mg/dL (65-100) H 02/19/21 08:05 POC Glucose 306 mg/dL (70-105) H 02/19/21 12:37 Lactic Acid 1.90 mmol/L (0.7-2.0) 02/14/21 22:33 Calcium 7.5 mg/dL (8.4-10.2) L 02/19/21 08:05 Phosphorus 5.00 mg/dL (2.5-4.5) H 02/19/21 04:25 Magnesium 2.40 mg/dL (1.7-2.3) H 02/19/21 04:25 Iron 42 ug/dL (37-170) 02/17/21 12:59 TIBC 231 mcg/dL (250-450) L 02/17/21 12:59 % Saturation 18.18 % 02/17/21 12:59 Transferrin 193 mg/dl (192-382) 02/17/21 12:59 Ferritin 902.0 ng/mL (10.0-200.0) H 02/18/21 09:45 Total Bilirubin 0.60 mg/dL (0.1-1.2) 02/19/21 04:25 Direct Bilirubin < 0.2 mg/dL (0-0.2) 02/13/21 13:28 Indirect Bilirubin 0.2 mg/dL 02/13/21 13:28 AST 31 units/L (5-40) 02/19/21 04:25 ALT 20 units/L (7-56) 02/19/21 04:25 Alkaline Phosphatase 84 units/L (35-129) 02/19/21 04:25 Ammonia 48.0 umol/L (25-60) 02/13/21 13:28 Lactate Dehydrogenase 784 units/L (91-180) H 02/18/21 09:45 Total Creatine Kinase 1572 units/L (30-135) H 02/13/21 13:28 Troponin T 0.033 ng/mL (0.00-0.029) H 02/13/21 18:39 C-Reactive Protein 20.30 mg/dL (0.00-1.30) H 02/18/21 09:45 NT-Pro-B Natriuret Pep 3473 pg/mL (0-900) H 02/13/21 13:36 Total Protein 7.3 g/dL (6.3-8.2) 02/19/21 04:25 Albumin 3.8 g/dL (3.9-5) L 02/19/21 04:25 Albumin/Globulin Ratio 1.1 % 02/19/21 04:25 Triglycerides 717 mg/dL (2-149) H 02/18/21 04:00 Cholesterol 130 mg/dL (50-199) 02/13/21 16:27 LDL Cholesterol Direct 68 mg/dL (50-130) 02/13/21 16:27 HDL Cholesterol 40 mg/dL (40-59) 02/13/21 16:27 Cholesterol/HDL Ratio 3.25 % 02/13/21 16:27 Lipase 35 units/L (13-60) 02/13/21 13:28 Procalcitonin 58.83 ng/mL (<0.15) 02/14/21 10:40 TSH 8.530 mlU/mL (0.270-4.200) H 02/13/21 13:28 Free T3 Index 0.8 pg/mL (2.3-4.2) L 02/16/21 04:30 Arterial Blood Glucose 340 mg/dL (65-95) H 02/19/21 04:00 Arterial Blood Ionized Calcium 3.8 mg/dL (4.6-5.3) L 02/19/21 04:00 Urine Color Laura (Yellow) 02/13/21 21: Urine Turbidity Turbid (Clear) 02/13/21 21: Urine pH 5.0 (5.0-7.0) 02/13/21 21: Ur Specific [place] 1.025 (1.003-1.030) 02/13/21 21:27 Urine Protein >500 mg/dL (Negative) 02/13/21 21:27 Urine Glucose (UA) Neg mg/dL (Negative) 02/13/21 21:27 Urine Ketones Neg mg/dL (Negative) 02/13/21 21:27 Urine Blood Lg (Negative) 02/13/21 21:27 Urine Nitrite Neg (Negative) 02/13/21 21:27 Urine Bilirubin Neg (Negative) 02/13/21 21:27 Urine Urobilinogen < 2.0 mg/dL (<2.0) 02/13/21 21:27 Ur Leukocyte Esterase Neg (Negative) 02/13/21 21:27 Urine WBC (Auto) 31.0 /HPF (0.0-6.0) H 02/13/21 21:27 Urine RBC (Auto) 8.0 /HPF (0.0-6.0) 02/13/21 21: U Epithel Cells (Auto) 4.0 /HPF (0-13.0) 02/13/21 21:27 Urine Bacteria (Auto) 2+ /HPF (Negative) 02/13/21 21:27 Urine WBC Clumps 3+ /HPF 02/13/21 21:27 Hyaline Casts 5 /LPF 02/13/21 21:27 Urine Mucus 2+ /HPF 02/13/21 21:27 Urine Yeast (Budding) 3+ /HPF 02/13/21 21:27 Urine Creatinine 80.0 mg/dL (0.1-20.0) H 02/14/21 18:45 Urine Sodium 33 mmol/L 02/14/21 18:45 Salicylates < 0.3 mg/dL (2.8-20.0) L 02/13/21 13:28 Urine Opiates Screen Negative 02/13/21 21: Urine Methadone Screen Negative 02/13/21 21:27 Acetaminophen 5.0 ug/mL (10.0-30.0) L 02/13/21 13:28 Ur Barbiturates Screen Negative 02/13/21 21:27 Ur Phencyclidine Scrn Negative 02/13/21 21:27 Ur Amphetamines Screen Negative 02/13/21 21:27 U Benzodiazepines Scrn Negative 02/13/21 21:27 Urine Cocaine Screen Negative 02/13/21 21:27 U Marijuana (THC) Screen Negative 02/13/21 21:27 Drugs of Abuse Note Disclamer 02/13/21 21:27 Plasma/Serum Alcohol < 0.01 % (0-0.07) 02/13/21 13:28 Coronavirus (PCR) Positive (Negative) A 02/14/21 Unknown Hepatitis A IgM Ab Non-reactive (NonReactive) 02/17/21 12:59 Hep Bs Antigen Nonreactive (Negative) 02/17/21 12:59 Hep B Core IgM Ab Non-reactive (NonReactive) 02/17/21 12:59 Hepatitis C Antibody Non-reactive (NonReactive) 02/17/21 12:59 Blood Type B POSITIVE 02/13/21 13:31 Antibody Screen Negative 02/13/21 13:31 Microbiology: Microbiology 02/13/21 13:48 Peripheral/Venous Blood Culture - Final NO GROWTH AFTER 5 DAYS 02/13/21 13:28 Peripheral/Venous Blood Culture - Final NO GROWTH AFTER 5 DAYS Cho/IV: Voiding Method Indwelling Catheter Active Medications - Current Medications Current Medications: Generic Name Dose Route Start Last Admin Trade Name Freq PRN Reason Stop Dose Admin Acetaminophen 650 mg 02/13/21 15:22 Acetaminophen 325 Mg Tab PO Q6H PRN Pain, Mild (1-3) Acetaminophen 650 mg 02/13/21 15:22 02/13/21 20:30 Acetaminophen 650 Mg Rect Supp [place] 650 mg Q6H PRN Administration Pain MILD(1-3)/Fever >100.5/ZACARIAS Albumin Human 25 gm 02/17/21 11:14 Albumin Human 25% (25 Gm/100 Ml) Inj IV AFTAB PRN Hypotension Albuterol 2.5 mg 02/13/21 15:22 Albuterol 2.5 Mg/3 Ml Nebu IH Q3H PRN Shortness Of Breath Lipase/Protease/Amylase 1 each 02/14/21 10:43 Lipase 10,500/Protease 25,000/Amylase 43,750 (Units) Dr Iqbal FEEDTUBE PRN PRN For Clogged Feeding Tube Ascorbic Acid 500 mg 02/13/21 22:00 02/19/21 09:48 Ascorbic Acid 500 Mg Tab PO 500 mg BID RUDY Administration Cholecalciferol 1,000 unit 02/13/21 16:00 02/19/21 09:48 Cholecalciferol (Vit D3) 1000 Unit (25 Mcg) Tab PO 1,000 unit QDAY RUDY Administration Dextrose 50 ml 02/14/21 11:15 Dextrose 50% In Water (25gm) 50 Ml Syringe IV Q30MIN PRN Hypoglycemia Protocol Fentanyl 50 mcg 02/13/21 16:05 Fentanyl 100 Mcg/2 Ml Inj IV Q10MIN PRN ANALGESIA Heparin Sodium (Porcine) 4,400 unit 02/14/21 13:18 Heparin 10,000 Units/10 Ml Vial 40 unit/kg (4400 unit) IV Q6H PRN Anti-Xa Assay < 0.1 units/ml Hydrophilic Ointment 1 applic 02/13/21 22:52 Lip Therapy Vaseline TP Q2HR PRN Dry Lips Heparin Sodium/Sodium Chloride 25,000 unit in 500 mls @ 30 mls/hr 02/13/21 17:00 02/17/21 17:15 Heparin/ 0.45% Nacl-25,000 Unit/500 Ml IV Infused TITR RUDY Titration Protocol 1,500 UNITS/HR Fentanyl Citrate 2,000 mcg in 100 mls @ 5.55 mls/hr 02/13/21 17:00 02/19/21 14:19 Fentanyl Drip Premix IV 4 mcg/kg/hr TITR RUDY 22.2 mls/hr Administration Protocol 1 MCG/KG/HR Norepinephrine 4 mg in 250 mls @ 75 mls/hr 02/13/21 18:00 02/14/21 01:55 Levophed Drip 4 Mg/Ns 250 Ml IV 0 mcg/min TITR RUDY 0 mls/hr Titration Protocol 20 MCG/MIN Propofol 1,000 mg in 100 mls @ 3.33 mls/hr 02/13/21 23:00 02/19/21 15:53 Diprivan 10 Mg/Ml IV 50 mcg/kg/min TITR RUDY 33.3 mls/hr Administration Protocol 5 MCG/KG/MIN Midazolam HCl 100 mg/ Sodium 100 mls @ 1 mls/hr 02/14/21 09:00 02/19/21 15:59 Chloride IV 5 mg/hr TITR RUDY 5 mls/hr Titration Protocol 1 MG/HR Dopamine HCl/Dextrose 800 mg in 250 mls @ 4.163 mls/hr 02/14/21 09:00 02/19/21 09:42 Intropin Drip 800 Mg/D5w 250 Ml IV 8 mcg/kg/min TITR RUDY 16.65 mls/hr Administration Protocol 2 MCG/KG/MIN Sodium Chloride 100 mls @ 999 mls/hr 02/17/21 11:14 Nacl 0.9% IV AFTAB PRN Hypotension Insulin Glargine 25 units 02/18/21 22:00 02/18/21 22:55 Insulin Glargine 100 Units/Ml SUB-Q 25 units QHS RUDY Administration Insulin Human Regular 0 units 02/14/21 12:00 02/19/21 12:53 Insulin Regular, Human 100 Units/1 Ml SUB-Q 8 units Q6H RUDY Administration Protocol Methylprednisolone Sodium Succinate 40 mg 02/18/21 06:00 02/19/21 13:02 Methylprednisolone Sod Succinate 40 Mg/1 Ml Inj IV 40 mg Q8H RUDY Administration Midazolam HCl 2 mg 02/14/21 08:24 Midazolam 2 Mg/2 Ml Inj IV Q10MIN PRN Sedation Multi-Ingred Cream/Lotion/Oil/Oint 1 applic 02/13/21 16:05 Mineral Oil/Petrolatum, White Ophth Oint 3.5 Gm OU Q4H PRN Dry Eye(s) Pantoprazole Sodium 40 mg 02/18/21 22:00 02/19/21 09:48 Pantoprazole 40 Mg Inj IV 40 mg BID RUDY Administration Senna/Docusate Sodium 1 tab 02/13/21 22:00 02/19/21 09:48 Sennosides/Docusate Sodium 8.6/50 Mg Tab FEEDTUBE 1 tab BID RUDY Administration Simple Syrup 15 ml 02/14/21 10:43 Simple Syrup 15 Ml FEEDTUBE PRN PRN Hypoglycemia Simple Syrup 30 ml 02/14/21 10:43 Simple Syrup 15 Ml FEEDTUBE PRN PRN Hypoglycemia Sodium Bicarbonate 325 mg 02/14/21 10:43 Sodium Bicarbonate 325 Mg Tab FEEDTUBE PRN PRN For Clogged Feeding Tube Sodium Chloride 10 ml 02/13/21 22:00 02/19/21 09:48 Sodium Chloride 0.9% 10 Ml Flush Syringe IV 10 ml BID RUDY Administration Sodium Chloride 10 ml 02/13/21 15:22 Sodium Chloride 0.9% 10 Ml Flush Syringe IV PRN PRN LINE FLUSH Zinc Sulfate 220 mg 02/13/21 22:00 02/19/21 09:48 Zinc Sulfate 220 Mg Cap PO 220 mg BID RUDY Administration Nutrition/Malnutrition Assess - Dietary Evaluation Nutrition/Malnutrition Findings: Nutrition Notes Start: 02/14/21 10:34 Freq: Status: Active Protocol: Document 02/18/21 11:53 MK (Rec: 02/18/21 12:12 MK [id number]) Nutrition Notes Initial or Follow up Brief Note Current Diagnosis Acute Kidney Injury, Hypertension,Respiratory Failure Other Pertinent Diagnosis SIRS, pneu, COVID PUI Current Diet Nepro 1.8 at 30 ml/hr Labs/Tests BUN 95 Cr 5.4 BG 270 Pertinent Medications Dopamine Propofol at 33.3 ml/hr (879 kcal) Solu Medrol [place] Body Weight (kg) 0 Weight Status Morbidly Obese Subjective/Other Information TF off this AM. Per RN, pt with 250ml gastric residuals. Per ASPEN guidelines, hold TF only if gastric residuals are greater than >250ml. RN to restart TF at 10 ml/hr and recheck for tolerance. Nutrition Intervention Follow-Up By: 02/21/21 Additional Comments F/u: TF at goal, tolerance and propofol rate <CELINA JEFFERSON - Last Filed: 02/20/21 13:20> History Interval history: I saw and evaluated the patient. Discussed with the nurse practitioner and agree with their findings and plan as documented in this note. Hospitalist Physical - Constitutional Vitals: Temp Pulse Resp BP Pulse Ox 98.6 F 84 28 H 91/54 76 L 02/20/21 04:00 02/20/21 11:45 02/20/21 11:45 02/20/21 11:45 02/20/21 11:45 HEART Score - HEART Score Troponin: Troponin T 0.033 ng/mL (0.00-0.029) H 02/13/21 18:39 Results - Labs CBC & Chem 7: 02/20/21 06:10 02/20/21 06:10 Labs: Laboratory Last Values WBC 17.8 K/mm3 (4.5-11.0) H 02/20/21 06:10 RBC 3.29 M/mm3 (3.65-5.03) L 02/20/21 06:10 Hgb 8.3 gm/dl (10.1-14.3) L 02/20/21 06:10 Hct 25.7 % (30.3-42.9) L 02/20/21 06:10 MCV 78 fl (79-97) L 02/20/21 06:10 MCH 25 pg (28-32) L 02/20/21 06:10 MCHC 32 % (30-34) 02/20/21 06:10 RDW 16.4 % (13.2-15.2) H 02/20/21 06:10 Plt Count 294 K/mm3 (140-440) 02/20/21 06:10 Lymph % (Auto) 5.9 % (13.4-35.0) L 02/13/21 13:28 Wallace % (Auto) 4.5 % (0.0-7.3) 02/13/21 13:28 Eos % (Auto) 0.0 % (0.0-4.3) 02/13/21 13:28 Baso % (Auto) 0.3 % (0.0-1.8) 02/13/21 13:28 Lymph # (Auto) 0.3 K/mm3 (1.2-5.4) L 02/13/21 13:28 Wallace # (Auto) 0.3 K/mm3 (0.0-0.8) 02/13/21 13:28 Eos # (Auto) 0.0 K/mm3 (0.0-0.4) 02/13/21 13:28 Baso # (Auto) 0.0 K/mm3 (0.0-0.1) 02/13/21 13:28 Seg Neutrophils % 89.3 % (40.0-70.0) H 02/13/21 13:28 Seg Neutrophils # 5.2 K/mm3 (1.8-7.7) 02/13/21 13:28 PT 16.9 Sec. (12.2-14.9) H 02/17/21 15:51 INR 1.31 (0.87-1.13) H 02/17/21 15:51 APTT 90.0 Sec. (24.2-36.6) H* 02/17/21 15:51 Fibrinogen 859 mg/dl (211-480) H 02/17/21 15:51 D-Dimer 6346.92 ng/mlDDU (0-234) H 02/20/21 06:10 Heparin Anti-Xa Level < 0.10 U.I./ml (0.3-0.7) L 02/19/21 04:25 ABG pH 7.406 (7.320-7.450) 02/19/21 04:00 POC ABG pCO2 34.3 mmHg (32.0-48.0) 02/19/21 04:00 ABG pCO2 39.8 mm Hg 02/16/21 10:45 POC ABG pO2 59.8 mmHg (83-108) L 02/19/21 04:00 ABG pO2 37.9 mm Hg (80.0-90.0) L* 02/16/21 10:45 POC ABG HCO3 21.1 02/19/21 04:00 ABG HCO3 20.5 mmol/L (20.0-26.0) 02/16/21 10:45 ABG O2 Saturation 89.6 (0-100) 02/19/21 04:00 ABG O2 Content 10.4 (0.0-44) 02/16/21 10:45 POC ABG Base Excess -3.2 02/19/21 04:00 ABG Base Excess -5.0 mmol/L (-2.0-3.0) L 02/16/21 10:45 ABG Hemoglobin 8.0 (12.0-17.5) L 02/19/21 04:00 ABG Oxyhemoglobin 88.6 (94-98) L 02/19/21 04:00 ABG Carboxyhemoglobin 1.2 % (0.0-5.0) 02/16/21 10:45 ABG Methemoglobin 0.3 (0.0-1.5) 02/19/21 04:00 ABG Sodium 136.8 mmol/L (136.0-145.0) 02/19/21 04:00 ABG Potassium 3.7 mmol/L (3.40-4.50) 02/19/21 04:00 ABG Chloride 103.0 mmol/L (98-107) 02/19/21 04:00 ABG Glucose 340 mg/dL (65-95) H 02/19/21 04:00 Oxyhemoglobin 62.7 % (95.0-99.0) L 02/16/21 10:45 Carboxyhemoglobin 0.8 (0.5-1.5) 02/19/21 04:00 FiO2 100 % 02/16/21 10:45 FiO2 % 100.0 02/19/21 04:00 Sodium 137 mmol/L (137-145) 02/20/21 06:10 Potassium 4.9 mmol/L (3.6-5.0) D 02/20/21 06:10 Chloride 96.7 mmol/L (98-107) L 02/20/21 06:10 Carbon Dioxide 22 mmol/L (22-30) 02/20/21 06:10 Anion Gap 23 mmol/L 02/20/21 06:10 BUN 59 mg/dL (7-17) H 02/20/21 06:10 Creatinine 3.8 mg/dL (0.6-1.2) H 02/20/21 06:10 Estimated GFR 14 ml/min 02/20/21 06:10 BUN/Creatinine Ratio 16 % 02/20/21 06:10 Glucose 209 mg/dL (65-100) H 02/20/21 06:10 POC Glucose 260 mg/dL (70-105) H 02/20/21 12:36 Lactic Acid 1.90 mmol/L (0.7-2.0) 02/14/21 22:33 Calcium 7.7 mg/dL (8.4-10.2) L 02/20/21 06:10 Phosphorus 5.00 mg/dL (2.5-4.5) H 02/19/21 04:25 Magnesium 2.40 mg/dL (1.7-2.3) H 02/19/21 04:25 Iron 42 ug/dL (37-170) 02/17/21 12:59 TIBC 231 mcg/dL (250-450) L 02/17/21 12:59 % Saturation 18.18 % 02/17/21 12:59 Transferrin 193 mg/dl (192-382) 02/17/21 12:59 Ferritin 1213.0 ng/mL (10.0-200.0) H 02/20/21 06:10 Total Bilirubin 0.60 mg/dL (0.1-1.2) 02/19/21 04:25 Direct Bilirubin < 0.2 mg/dL (0-0.2) 02/13/21 13:28 Indirect Bilirubin 0.2 mg/dL 02/13/21 13:28 AST 31 units/L (5-40) 02/19/21 04:25 ALT 20 units/L (7-56) 02/19/21 04:25 Alkaline Phosphatase 84 units/L (35-129) 02/19/21 04:25 Ammonia 48.0 umol/L (25-60) 02/13/21 13:28 Lactate Dehydrogenase 724 units/L (91-180) H 02/20/21 06:10 Total Creatine Kinase 1572 units/L (30-135) H 02/13/21 13:28 Troponin T 0.033 ng/mL (0.00-0.029) H 02/13/21 18:39 C-Reactive Protein 13.60 mg/dL (0.00-1.30) H 02/20/21 06:10 NT-Pro-B Natriuret Pep 3473 pg/mL (0-900) H 02/13/21 13:36 Total Protein 7.3 g/dL (6.3-8.2) 02/19/21 04:25 Albumin 3.8 g/dL (3.9-5) L 02/19/21 04:25 Albumin/Globulin Ratio 1.1 % 02/19/21 04:25 Triglycerides 717 mg/dL (2-149) H 02/18/21 04:00 Cholesterol 130 mg/dL (50-199) 02/13/21 16:27 LDL Cholesterol Direct 68 mg/dL (50-130) 02/13/21 16:27 HDL Cholesterol 40 mg/dL (40-59) 02/13/21 16:27 Cholesterol/HDL Ratio 3.25 % 02/13/21 16:27 Lipase 35 units/L (13-60) 02/13/21 13:28 Procalcitonin 58.83 ng/mL (<0.15) 02/14/21 10:40 TSH 8.530 mlU/mL (0.270-4.200) H 02/13/21 13:28 Free T3 Index 0.8 pg/mL (2.3-4.2) L 02/16/21 04:30 Arterial Blood Glucose 340 mg/dL (65-95) H 02/19/21 04:00 Arterial Blood Ionized Calcium 3.8 mg/dL (4.6-5.3) L 02/19/21 04:00 Urine Color Laura (Yellow) 02/13/21 21:27 Urine Turbidity Turbid (Clear) 02/13/21 21:27 Urine pH 5.0 (5.0-7.0) 02/13/21 21:27 Ur Specific [place] 1.025 (1.003-1.030) 02/13/21 21:27 Urine Protein >500 mg/dL (Negative) 02/13/21 21:27 Urine Glucose (UA) Neg mg/dL (Negative) 02/13/21 21:27 Urine Ketones Neg mg/dL (Negative) 02/13/21 21:27 Urine Blood Lg (Negative) 02/13/21 21: Urine Nitrite Neg (Negative) 02/13/21 21:27 Urine Bilirubin Neg (Negative) 02/13/21 21: Urine Urobilinogen < 2.0 mg/dL (<2.0) 02/13/21 21:27 Ur Leukocyte Esterase Neg (Negative) 02/13/21 21:27 Urine WBC (Auto) 31.0 /HPF (0.0-6.0) H 02/13/21 21:27 Urine RBC (Auto) 8.0 /HPF (0.0-6.0) 02/13/21 21: U Epithel Cells (Auto) 4.0 /HPF (0-13.0) 02/13/21 21:27 Urine Bacteria (Auto) 2+ /HPF (Negative) 02/13/21 21:27 Urine WBC Clumps 3+ /HPF 02/13/21 21:27 Hyaline Casts 5 /LPF 02/13/21 21:27 Urine Mucus 2+ /HPF 02/13/21 21:27 Urine Yeast (Budding) 3+ /HPF 02/13/21 21:27 Urine Creatinine 80.0 mg/dL (0.1-20.0) H 02/14/21 18:45 Urine Sodium 33 mmol/L 02/14/21 18:45 Salicylates < 0.3 mg/dL (2.8-20.0) L 02/13/21 13:28 Urine Opiates Screen Negative 02/13/21 21:27 Urine Methadone Screen Negative 02/13/21 21:27 Acetaminophen 5.0 ug/mL (10.0-30.0) L 02/13/21 13:28 Ur Barbiturates Screen Negative 02/13/21 21:27 Ur Phencyclidine Scrn Negative 02/13/21 21:27 Ur Amphetamines Screen Negative 02/13/21 21:27 U Benzodiazepines Scrn Negative 02/13/21 21:27 Urine Cocaine Screen Negative 02/13/21 21:27 U Marijuana (THC) Screen Negative 02/13/21 21:27 Drugs of Abuse Note Disclamer 02/13/21 21:27 Plasma/Serum Alcohol < 0.01 % (0-0.07) 02/13/21 13:28 Coronavirus (PCR) Positive (Negative) A 02/14/21 Unknown Hepatitis A IgM Ab Non-reactive (NonReactive) 02/17/21 12:59 Hep Bs Antigen Nonreactive (Negative) 02/17/21 12:59 Hep B Core IgM Ab Non-reactive (NonReactive) 02/17/21 12:59 Hepatitis C Antibody Non-reactive (NonReactive) 02/17/21 12:59 Blood Type B POSITIVE 02/13/21 13:31 Antibody Screen Negative 02/13/21 13:31 Cho/IV: Voiding Method Indwelling Catheter Active Medications - Current Medications Current Medications: Generic Name Dose Route Start Last Admin Trade Name Freq PRN Reason Stop Dose Admin Acetaminophen 650 mg 02/13/21 15:22 Acetaminophen 325 Mg Tab PO Q6H PRN Pain, Mild (1-3) Acetaminophen 650 mg 02/13/21 15:22 02/13/21 20:30 Acetaminophen 650 Mg Rect Supp [place] 650 mg Q6H PRN Administration Pain MILD(1-3)/Fever >100.5/ZACARIAS Albumin Human 25 gm 02/17/21 11:14 02/19/21 17:37 Albumin Human 25% (25 Gm/100 Ml) Inj IV 25 gm AFTAB PRN Administration Hypotension Albuterol 2.5 mg 02/13/21 15:22 Albuterol 2.5 Mg/3 Ml Nebu IH Q3H PRN Shortness Of Breath Lipase/Protease/Amylase 1 each 02/14/21 10:43 Lipase 10,500/Protease 25,000/Amylase 43,750 (Units) Dr Iqbal FEEDTUBE PRN PRN For Clogged Feeding Tube Ascorbic Acid 500 mg 02/13/21 22:00 02/20/21 09:13 Ascorbic Acid 500 Mg Tab PO 500 mg BID RUDY Administration Cholecalciferol 1,000 unit 02/13/21 16:00 02/20/21 09:13 Cholecalciferol (Vit D3) 1000 Unit (25 Mcg) Tab PO 1,000 unit QDAY RUDY Administration Dextrose 50 ml 02/14/21 11:15 Dextrose 50% In Water (25gm) 50 Ml Syringe IV Q30MIN PRN Hypoglycemia Protocol Fentanyl 50 mcg 02/13/21 16:05 Fentanyl 100 Mcg/2 Ml Inj IV Q10MIN PRN ANALGESIA Heparin Sodium (Porcine) 4,400 unit 02/14/21 13:18 Heparin 10,000 Units/10 Ml Vial 40 unit/kg (4400 unit) IV Q6H PRN Anti-Xa Assay < 0.1 units/ml Hydrophilic Ointment 1 applic 02/13/21 22:52 Lip Therapy Vaseline TP Q2HR PRN Dry Lips Heparin Sodium/Sodium Chloride 25,000 unit in 500 mls @ 30 mls/hr 02/13/21 17:00 02/17/21 17:15 Heparin/ 0.45% Nacl-25,000 Unit/500 Ml IV Infused TITR RUDY Titration Protocol 1,500 UNITS/HR Fentanyl Citrate 2,000 mcg in 100 mls @ 5.55 mls/hr 02/13/21 17:00 02/20/21 09:26 Fentanyl Drip Premix IV 4 mcg/kg/hr TITR RUDY 22.2 mls/hr Administration Protocol 1 MCG/KG/HR Norepinephrine 4 mg in 250 mls @ 75 mls/hr 02/13/21 18:00 02/20/21 11:35 Levophed Drip 4 Mg/Ns 250 Ml IV 2 mcg/min TITR RUDY 7.5 mls/hr Administration Protocol 20 MCG/MIN Propofol 1,000 mg in 100 mls @ 3.33 mls/hr 02/13/21 23:00 02/20/21 11:34 Diprivan 10 Mg/Ml IV 50 mcg/kg/min TITR RUDY 33.3 mls/hr Administration Protocol 5 MCG/KG/MIN Midazolam HCl 100 mg/ Sodium 100 mls @ 1 mls/hr 02/14/21 09:00 02/20/21 13:11 Chloride IV 5 mg/hr TITR RUDY 5 mls/hr Administration Protocol 1 MG/HR Dopamine HCl/Dextrose 800 mg in 250 mls @ 4.163 mls/hr 02/14/21 09:00 02/20/21 13:13 Intropin Drip 800 Mg/D5w 250 Ml IV 10 mcg/kg/min TITR RUDY 20.813 mls/hr Administration Protocol 2 MCG/KG/MIN Sodium Chloride 100 mls @ 999 mls/hr 02/17/21 11:14 Nacl 0.9% IV AFTAB PRN Hypotension Insulin Glargine 25 units 02/18/21 22:00 02/19/21 22:01 Insulin Glargine 100 Units/Ml SUB-Q 25 units QHS RUDY Administration Insulin Human Regular 0 units 02/14/21 12:00 02/20/21 13:12 Insulin Regular, Human 100 Units/1 Ml SUB-Q 6 units Q6H RUDY Administration Protocol Methylprednisolone Sodium Succinate 40 mg 02/18/21 06:00 02/20/21 06:07 Methylprednisolone Sod Succinate 40 Mg/1 Ml Inj IV 40 mg Q8H RUDY Administration Midazolam HCl 2 mg 02/14/21 08:24 Midazolam 2 Mg/2 Ml Inj IV Q10MIN PRN Sedation Multi-Ingred Cream/Lotion/Oil/Oint 1 applic 02/13/21 16:05 Mineral Oil/Petrolatum, White Ophth Oint 3.5 Gm OU Q4H PRN Dry Eye(s) Pantoprazole Sodium 40 mg 02/18/21 22:00 02/20/21 09:13 Pantoprazole 40 Mg Inj IV 40 mg BID RUDY Administration Senna/Docusate Sodium 1 tab 02/13/21 22:00 02/20/21 09:13 Sennosides/Docusate Sodium 8.6/50 Mg Tab FEEDTUBE 1 tab BID RUDY Administration Simple Syrup 15 ml 02/14/21 10:43 Simple Syrup 15 Ml FEEDTUBE PRN PRN Hypoglycemia Simple Syrup 30 ml 02/14/21 10:43 Simple Syrup 15 Ml FEEDTUBE PRN PRN Hypoglycemia Sodium Bicarbonate 325 mg 02/14/21 10:43 Sodium Bicarbonate 325 Mg Tab FEEDTUBE PRN PRN For Clogged Feeding Tube Sodium Chloride 10 ml 02/13/21 22:00 02/20/21 09:14 Sodium Chloride 0.9% 10 Ml Flush Syringe IV 10 ml BID RUDY Administration Sodium Chloride 10 ml 02/13/21 15:22 Sodium Chloride 0.9% 10 Ml Flush Syringe IV PRN PRN LINE FLUSH Zinc Sulfate 220 mg 02/13/21 22:00 02/20/21 09:13 Zinc Sulfate 220 Mg Cap PO 220 mg BID RUDY Administration Nutrition/Malnutrition Assess - Dietary Evaluation Nutrition/Malnutrition Findings: Nutrition Notes Start: 02/14/21 10:34 Freq: Status: Active Protocol: Document 02/18/21 11:53 MK (Rec: 02/18/21 12:12 MK [id number]) Nutrition Notes Initial or Follow up Brief Note Current Diagnosis Acute Kidney Injury, Hypertension,Respiratory Failure Other Pertinent Diagnosis SIRS, pneu, COVID PUI Current Diet Nepro 1.8 at 30 ml/hr Labs/Tests BUN 95 Cr 5.4 BG 270 Pertinent Medications Dopamine Propofol at 33.3 ml/hr (879 kcal) Solu Medrol [place] Body Weight (kg) 0 Weight Status Morbidly Obese Subjective/Other Information TF off this AM. Per RN, pt with 250ml gastric residuals. Per ASPEN guidelines, hold TF only if gastric residuals are greater than >250ml. RN to restart TF at 10 ml/hr and recheck for tolerance. Nutrition Intervention Follow-Up By: 02/21/21 Additional Comments F/u: TF at goal, tolerance and propofol rate
[2021-02-19] MEDS ORDERED: SODIUM CHLORIDE 0.9% 1000 ML 1,000 ML ONE ×2 (16:49)
[2021-02-19] MEDS: INSULIN GLARGINE 100 UNITS/ML SUB-Q SCH (22:01)
[2021-02-20] MEDS: INSULIN REGULAR, HUMAN 100 UNITS/1 ML SUB-Q SCH ×4 (00:32→17:30)
[2021-02-20] MEDS: fentaNYL DRIP Premix 2,000 MCG/100 ML BAG IV SCH ×5 (00:32→19:26)
[2021-02-20] MEDS: DOPamine/D5W 800 MG/250 ML 800 MG/250 ML BAG IV SCH ×2 (00:37→13:13)
--- NOTE | 2021-02-20 03:59 | XRay Report ---
CHEST 1 VIEW 02/20/2021 2:45 AM INDICATION / CLINICAL INFORMATION: follow up respiratory failure. COMPARISON: Previous day. FINDINGS: SUPPORT DEVICES: Unchanged. Enlarging small right apical pneumothorax. HEART / MEDIASTINUM: No significant abnormality. LUNGS / PLEURA: Mild worsening bilateral opacity. Extensive subcutaneous air remains. ADDITIONAL FINDINGS: No significant additional findings. IMPRESSION: 1. Worsening bilateral opacity. 2. Mild enlarging small right apical pneumothorax. Right chest tube remains in place but is changed i n position and appears partially kinked. Signer Name: Carlos Mir MD Signed: 02/20/2021 3:55 AM Workstation Name: [id number]
[2021-02-20] MEDS: methylPREDNISolone Sod Succinate 40 MG/1 ML INJ IV SCH ×3 (06:07→21:20)
[2021-02-20 07:16] LABS: Hematocrit 25.7 % (30.3-42.9); Hemoglobin 8.3 gm/dl (10.1-14.3); Mean Corpuscular HGB Conc 32 % (30-34); Mean Corpuscular Volume 78 fl (79-97); Platelet Count 294 K/mm3 (140-440); Red Blood Count 3.29 M/mm3 (3.65-5.03); Red Cell Distribution Width 16.4 % (13.2-15.2)
[2021-02-20 07:47] LABS: Calcium 7.7 mg/dL (8.4-10.2)
[2021-02-20 07:50] LABS: C-Reactive Protein 13.6 mg/dL (0.00-1.30)
[2021-02-20] MEDS: SENNOSIDES/DOCUSATE SODIUM 8.6/50 MG TAB FEEDTUBE SCH ×2 (09:13→21:20)
[2021-02-20] MEDS: CHOLECALCIFEROL (VIT D3) 1000 UNIT (25 mcg) TAB PO SCH (09:13)
[2021-02-20] MEDS: ZINC SULFATE 220 MG CAP PO SCH ×2 (09:13→21:20)
[2021-02-20] MEDS: ASCORBIC ACID 500 MG TAB PO SCH ×2 (09:13→21:20)
[2021-02-20] MEDS: PANTOPRAZOLE 40 MG INJ IV SCH ×2 (09:13→21:20)
--- NOTE | 2021-02-20 09:43 | Progress Note ---
Assessment and Plan Impression: * SONIA/ATN * COvid PNA * Acute hypoxic resp failure * Sepsis * cardiac arrest * hyperkalemia * Metabolic acidosis Plan: * daily lytes noted, improving with [employer] * cardiac arrest noted, worsening atn * added albumin for bp support, CRRT is not availabe, so continue convention hemodialysis PRN, cont vasopressors prn, * continue Hemodialysis prn, recieved sunday and sunday * daily lytes, reassess needs for hd daily * sonia due to atn from COvid, high risk for progression * strict i/os * avoid nephrotoxins * Keep MAP>65, vasopressors prn * no emergent indicaion for [employer]IO[employer] today * sepsis protocol * spoke with patients daughter, Carolin Tinoco, explained risk and benefits of hemodialysis, agrees to proceed with renal replacement therapy Subjective Date of service: 02/20/21 Principal diagnosis: AHRF; ARDS; Pneumonia;COVID-19; OHS; SONIA; Hyperkalemia; AMS Interval history: events noted, labs reviewed Objective - Exam Narrative Exam: GENERAL: Morbidly obese female. Unresponsive and obtunded HEAD: Normocephalic. No obvious signs of trauma. ENT: Dry mucous membranes. Bag valve mask applied EYES: Pupils are constricted bilaterally but remain reactive. NECK: Trachea is midline. LUNGS: Bilateral breath sounds with [id number] ventilation. There are s cattered rales throughout. CARDIOVASCULAR: Regular rate and rhythm. 3/6 systolic murmur VASCULAR: Cap refill < 2 seconds ABDOMEN: Abdomen is soft and nondistended. There is central adiposity SKIN: Skin is warm and dry NEURO: Patient is obtunded and unresponsive even to pain. GCS is 3 MUSCULOSKELETAL: No obvious deformities. - Vital Signs Vital signs: Vital Signs - 12hr 02/19/21 02/19/21 02/19/21 21:45 22:00 22:15 Temperature Pulse Rate 68 68 69 Pulse Rate [ From Monitor] Respiratory 28 H 28 H 28 H Rate Blood Pressure 114/59 113/56 104/54 O2 Sat by Pulse 62 L 62 L 59 L Oximetry 02/19/21 02/19/21 02/19/21 22:19 22:30 22:45 Temperature Pulse Rate 68 69 68 Pulse Rate [ From Monitor] Respiratory 28 H 28 H 28 H Rate Blood Pressure 104/54 107/56 112/55 O2 Sat by Pulse 59 L 63 L 65 L Oximetry 02/19/21 02/19/21 02/19/21 23:00 23:15 23:26 Temperature Pulse Rate 68 69 69 Pulse Rate [ From Monitor] Respiratory 28 H 28 H Rate Blood Pressure 102/52 106/52 102/52 O2 Sat by Pulse 61 L 60 L 64 L Oximetry 02/19/21 02/19/21 02/20/21 23:30 23:45 00:00 Temperature 97.2 F L Pulse Rate 68 67 70 Pulse Rate [ 71 From Monitor] Respiratory 28 H 28 H 28 H Rate Blood Pressure 102/52 105/48 108/54 O2 Sat by Pulse 62 L 63 L 68 L Oximetry 02/20/21 02/20/21 02/20/21 00:15 00:30 00:45 Temperature Pulse Rate 70 74 72 Pulse Rate [ From Monitor] Respiratory 28 H 28 H 28 H Rate Blood Pressure 107/51 106/57 104/50 O2 Sat by Pulse 64 L 65 L 65 L Oximetry 02/20/21 02/20/21 02/20/21 01:00 01:15 01:30 Temperature Pulse Rate 72 71 72 Pulse Rate [ From Monitor] Respiratory 28 H 28 H 28 H Rate Blood Pressure 99/53 101/48 91/51 O2 Sat by Pulse 64 L 64 L 65 L Oximetry 02/20/21 02/20/21 02/20/21 01:45 02:00 02:15 Temperature Pulse Rate 73 74 72 Pulse Rate [ From Monitor] Respiratory 28 H 28 H 28 H Rate Blood Pressure 101/51 91/50 99/52 O2 Sat by Pulse 67 L 66 L 67 L Oximetry 02/20/21 02/20/21 02/20/21 02:30 02:45 03:00 Temperature Pulse Rate 73 74 75 Pulse Rate [ From Monitor] Respiratory 28 H 28 H 28 H Rate Blood Pressure 95/48 95/48 97/52 O2 Sat by Pulse 67 L 68 L 68 L Oximetry 02/20/21 02/20/21 02/20/21 03:15 03:30 03:45 Temperature Pulse Rate 76 76 70 Pulse Rate [ From Monitor] Respiratory 28 H 28 H 28 H Rate Blood Pressure 96/53 89/51 100/56 O2 Sat by Pulse 70 L 69 L 65 L Oximetry 02/20/21 02/20/21 02/20/21 04:00 04:15 04:30 Temperature 98.6 F Pulse Rate 76 77 75 Pulse Rate [ 71 From Monitor] Respiratory 28 H 28 H 28 H Rate Blood Pressure 111/54 109/56 109/57 O2 Sat by Pulse 68 L 69 L 70 L Oximetry 02/20/21 02/20/21 02/20/21 04:45 05:00 05:14 Temperature Pulse Rate 76 75 76 Pulse Rate [ From Monitor] Respiratory 28 H 28 H Rate Blood Pressure 100/57 111/48 111/54 O2 Sat by Pulse 70 L 70 L 69 L Oximetry 02/20/21 02/20/21 02/20/21 05:15 05:30 05:45 Temperature Pulse Rate 88 88 87 Pulse Rate [ From Monitor] Respiratory 28 H 28 H 28 H Rate Blood Pressure 111/48 105/54 99/56 O2 Sat by Pulse 72 L 74 L 71 L Oximetry 02/20/21 02/20/21 02/20/21 06:00 06:15 06:30 Temperature Pulse Rate 89 88 87 Pulse Rate [ From Monitor] Respiratory 28 H 28 H 28 H Rate Blood Pressure 105/53 101/54 102/58 O2 Sat by Pulse 71 L 71 L 73 L Oximetry 02/20/21 02/20/21 02/20/21 06:45 07:00 07:15 Temperature Pulse Rate 85 86 86 Pulse Rate [ From Monitor] Respiratory 28 H 28 H 28 H Rate Blood Pressure 106/60 102/56 102/56 O2 Sat by Pulse 73 L 74 L 73 L Oximetry 02/20/21 02/20/21 02/20/21 07:30 07:45 08:00 Temperature Pulse Rate 84 84 Pulse Rate [ 84 From Monitor] Respiratory 28 H 28 H 28 H Rate Blood Pressure 102/48 104/57 O2 Sat by Pulse 73 L 73 L 76 L Oximetry - Lab 02/20/21 06:10 02/20/21 06:10 Most recent lab results ABG pH 7.406 (7.320-7.450) 02/19/21 04:00 ABG pCO2 39.8 mm Hg 02/16/21 10:45 ABG pO2 37.9 mm Hg (80.0-90.0) L* 02/16/21 10:45 ABG HCO3 20.5 mmol/L (20.0-26.0) 02/16/21 10:45 ABG O2 Saturation 89.6 (0-100) 02/19/21 04:00 Calcium 7.7 mg/dL (8.4-10.2) L 02/20/21 06:10 Phosphorus 5.00 mg/dL (2.5-4.5) H 02/19/21 04:25 Magnesium 2.40 mg/dL (1.7-2.3) H 02/19/21 04:25 Urine Creatinine 80.0 mg/dL (0.1-20.0) H 02/14/21 18:45 Urine Sodium 33 mmol/L 02/14/21 18:45 Medications & Allergies - Medications Allergies/Adverse Reactions: Allergies Penicillins Adverse Reaction (Unknown, Verified 02/17/21 19:47) Unknown Home Medications: Home Medications Medication Instructions Recorded Confirmed Last Taken Type Insulin NPH Hum/Reg Insulin Hm See Protocol SQ DAILY 02/13/21 02/13/21 Unknown History [Novolin 70-30 100 Unit/ml Vial] metFORMIN [Glucophage] 500 mg PO TID 02/13/21 02/13/21 Unknown History Active Medications: Generic Name Dose Route Start Last Admin Trade Name Freq PRN Reason Stop Dose Admin Acetaminophen 650 mg 02/13/21 15:22 Acetaminophen 325 Mg Tab PO Q6H PRN Pain, Mild (1-3) Acetaminophen 650 mg 02/13/21 15:22 02/13/21 20:30 Acetaminophen 650 Mg Rect Supp [place] 650 mg Q6H PRN Administration Pain MILD(1-3)/Fever >100.5/ZACARIAS Albumin Human 25 gm 02/17/21 11:14 02/19/21 17:37 Albumin Human 25% (25 Gm/100 Ml) Inj IV 25 gm AFTAB PRN Administration Hypotension Albuterol 2.5 mg 02/13/21 15:22 Albuterol 2.5 Mg/3 Ml Nebu IH Q3H PRN Shortness Of Breath Lipase/Protease/Amylase 1 each 02/14/21 10:43 Lipase 10,500/Protease 25,000/Amylase 43,750 (Units) Dr Iqbal FEEDTUBE PRN PRN For Clogged Feeding Tube Ascorbic Acid 500 mg 02/13/21 22:00 02/20/21 09:13 Ascorbic Acid 500 Mg Tab PO 500 mg BID RUDY Administration Cholecalciferol 1,000 unit 02/13/21 16:00 02/20/21 09:13 Cholecalciferol (Vit D3) 1000 Unit (25 Mcg) Tab PO 1,000 unit QDAY RUDY Administration Dextrose 50 ml 02/14/21 11:15 Dextrose 50% In Water (25gm) 50 Ml Syringe IV Q30MIN PRN Hypoglycemia Protocol Fentanyl 50 mcg 02/13/21 16:05 Fentanyl 100 Mcg/2 Ml Inj IV Q10MIN PRN ANALGESIA Heparin Sodium (Porcine) 4,400 unit 02/14/21 13:18 Heparin 10,000 Units/10 Ml Vial 40 unit/kg (4400 unit) IV Q6H PRN Anti-Xa Assay < 0.1 units/ml Hydrophilic Ointment 1 applic 02/13/21 22:52 Lip Therapy Vaseline TP Q2HR PRN Dry Lips Heparin Sodium/Sodium Chloride 25,000 unit in 500 mls @ 30 mls/hr 02/13/21 17:00 02/17/21 17:15 Heparin/ 0.45% Nacl-25,000 Unit/500 Ml IV Infused TITR RUDY Titration Protocol 1,500 UNITS/HR Fentanyl Citrate 2,000 mcg in 100 mls @ 5.55 mls/hr 02/13/21 17:00 02/20/21 09:26 Fentanyl Drip Premix IV 4 mcg/kg/hr TITR RUDY 22.2 mls/hr Administration Protocol 1 MCG/KG/HR Norepinephrine 4 mg in 250 mls @ 75 mls/hr 02/13/21 18:00 02/14/21 01:55 Levophed Drip 4 Mg/Ns 250 Ml IV 0 mcg/min TITR RUDY 0 mls/hr Titration Protocol 20 MCG/MIN Propofol 1,000 mg in 100 mls @ 3.33 mls/hr 02/13/21 23:00 02/20/21 08:15 Diprivan 10 Mg/Ml IV 50 mcg/kg/min TITR RUDY 33.3 mls/hr Administration Protocol 5 MCG/KG/MIN Midazolam HCl 100 mg/ Sodium 100 mls @ 1 mls/hr 02/14/21 09:00 02/19/21 17:25 Chloride IV 5 mg/hr TITR RUDY 5 mls/hr Administration Protocol 1 MG/HR Dopamine HCl/Dextrose 800 mg in 250 mls @ 4.163 mls/hr 02/14/21 09:00 07:00 Intropin Drip 800 Mg/D5w 250 Ml IV 10 mcg/kg/min TITR RUDY 20.813 mls/hr Titration Protocol 2 MCG/KG/MIN Sodium Chloride 100 mls @ 999 mls/hr 02/17/21 11:14 Nacl 0.9% IV AFTAB PRN Hypotension Insulin Glargine 25 units 02/18/21 22:00 02/19/21 22:01 Insulin Glargine 100 Units/Ml SUB-Q 25 units QHS RUDY Administration Insulin Human Regular 0 units 02/14/21 12:00 02/20/21 06:08 Insulin Regular, Human 100 Units/1 Ml SUB-Q 4 units Q6H RUDY Administration Protocol Methylprednisolone Sodium Succinate 40 mg 02/18/21 06:00 02/20/21 06:07 Methylprednisolone Sod Succinate 40 Mg/1 Ml Inj IV 40 mg Q8H RUDY Administration Midazolam HCl 2 mg 02/14/21 08:24 Midazolam 2 Mg/2 Ml Inj IV Q10MIN PRN Sedation Multi-Ingred Cream/Lotion/Oil/Oint 1 applic 02/13/21 16:05 Mineral Oil/Petrolatum, White Ophth Oint 3.5 Gm OU Q4H PRN Dry Eye(s) Pantoprazole Sodium 40 mg 02/18/21 22:00 02/20/21 09:13 Pantoprazole 40 Mg Inj IV 40 mg BID RUDY Administration Senna/Docusate Sodium 1 tab 02/13/21 22:00 02/20/21 09:13 Sennosides/Docusate Sodium 8.6/50 Mg Tab FEEDTUBE 1 tab BID RUDY Administration Simple Syrup 15 ml 02/14/21 10:43 Simple Syrup 15 Ml FEEDTUBE PRN PRN Hypoglycemia Simple Syrup 30 ml 02/14/21 10:43 Simple Syrup 15 Ml FEEDTUBE PRN PRN Hypoglycemia Sodium Bicarbonate 325 mg 02/14/21 10:43 Sodium Bicarbonate 325 Mg Tab FEEDTUBE PRN PRN For Clogged Feeding Tube Sodium Chloride 10 ml 02/13/21 22:00 02/20/21 09:14 Sodium Chloride 0.9% 10 Ml Flush Syringe IV 10 ml BID RUDY Administration Sodium Chloride 10 ml 02/13/21 15:22 Sodium Chloride 0.9% 10 Ml Flush Syringe IV PRN PRN LINE FLUSH Zinc Sulfate 220 mg 02/13/21 22:00 02/20/21 09:13 Zinc Sulfate 220 Mg Cap PO 220 mg BID RUDY Administration
[2021-02-20] MEDS: NORepinephrine/NS 4 MG-250 ML 4 MG/250 ML BAG IV SCH (11:35)
[2021-02-20] MEDS: MIDAZOLAM 100 MG in SODIUM CHLORIDE 0.9% 80 ML IV SCH (13:11)
--- NOTE | 2021-02-20 16:28 | Progress Note ---
Assessment and Plan Acute hypoxemic respiratory failure Acute respiratory distress syndrome Bilateral pneumonia PUI COVID-19 Obesity hypoventilation syndrome Acute kidney injuryElevated serum inflammatory markers to include D-dimers, ferritin, LDH, CRP Hyperkalemia Lactic acidosis Probable rhabdomyolysis Acute encephalopathy (I had a candid discussion with her daughter Carolin and explained my fear that even if she survives she will have suffered some significant neurologic damage. I have asked her to gather her siblings and discuss end-of-life issues) - continue chest tube to continuous wall suction - continue HD/UF for toxin and volume clearance per nephrology prescription - trend H&H - wean vasopressors for target MAP > 65 mmHg and dopamine for target HR > 55- 60/min - continue care as below otherwise; - nephrology evaluation ongoing - continue to wean supplemental oxygen for target O2 sat's > 92% acutely - aspiration precautions - continue bronchodilators with pulmonary hygiene per RT - avoid nephrotoxins, renally dose all medications - continue to avoid benzodiazepine's, reduce the possibility of delirium - complete AB's per ID rec's - prn analgesia per pain score - Maintenance of sleep-wake cycle, avoid delirium - G.I. & VTE prophylaxis - PT/OT/ROM exercises - continue mobility protocols for pressure ulcer prophylaxis - Monitor hemodynamics closely - continue other care per attending / other consultants - discharge planning ongoing concurrently COVID SPECIFIC INTERVENTIONS - Remdesivir as per ID/Pulmonary developed protocols (not a candidate re: SONIA) - continue systemic steroids for severe COVID-19 infection (Solumedrol) - follow repeat COVID tests results - zinc and vitamin C supplementation - Monitor inflammatory markers per facility protocol - ferritin, Ddimer, CRP - therapeutic anticoagulation per system Protocol based on d-dimer and clinical considerations (IV Heparin drip) - Continue contact and airborne isolation .... Re-evaluate in am & prn CONDITION: CRITICAL PROGNOSIS: GRAVE CODE STATUS: FULL CODE The high probability of a clinically significant, sudden or life-threatening deterioration of the [respiratory, cardiovascular & neurologic] system(s) required my full and direct attention, intervention and personal management. The aggregate critical care time was [38] minutes without overlap. Time includes spent on; [x] Data Review and interpretation [x] Patient assessment and monitoring of vital signs [x] Documentation [x] Medication orders and management Subjective Date of service: 02/20/21 Principal diagnosis: AHRF; ARDS; Pneumonia; PUI COVID-19; OHS; SONIA; Hyperkalemia; AMS Interval history: Patient is seen today for: Acute hypoxemic respiratory failure; ARDS; Pneumonia; PUI COVID-19; OHS; SONIA; Hyperkalemia; Rhabdomyolysis; Acute encephalopathy Seen and examined at bedside; 24hour events reviewed; nursing and respiratory care staff consulted; no adverse overnight events reported to me; resting in bed; remains on MVS; SQ emphysema is persistent; FiO2 remains at 100% but O2 sat's in the 70's despite increasing peep to 22 cm H2O; no emesis or overt aspiration; remains on Dopamine Objective Vital Signs - 12hr 02/20/21 02/20/21 02/20/21 04:30 04:45 05:00 Temperature Pulse Rate 75 76 75 Pulse Rate [ From Monitor] Respiratory 28 H 28 H 28 H Rate Blood Pressure 109/57 100/57 111/48 O2 Sat by Pulse 70 L 70 L 70 L Oximetry 02/20/21 02/20/21 02/20/21 05:14 05:15 05:30 Temperature Pulse Rate 76 88 88 Pulse Rate [ From Monitor] Respiratory 28 H 28 H Rate Blood Pressure 111/54 111/48 105/54 O2 Sat by Pulse 69 L 72 L 74 L Oximetry 02/20/21 02/20/21 02/20/21 05:45 06:00 06:15 Temperature Pulse Rate 87 89 88 Pulse Rate [ From Monitor] Respiratory 28 H 28 H 28 H Rate Blood Pressure 99/56 105/53 101/54 O2 Sat by Pulse 71 L 71 L 71 L Oximetry 02/20/21 02/20/21 02/20/21 06:30 06:45 07:00 Temperature Pulse Rate 87 85 86 Pulse Rate [ From Monitor] Respiratory 28 H 28 H 28 H Rate Blood Pressure 102/58 106/60 102/56 O2 Sat by Pulse 73 L 73 L 74 L Oximetry 02/20/21 02/20/21 02/20/21 07:15 07:30 07:45 Temperature Pulse Rate 86 84 84 Pulse Rate [ From Monitor] Respiratory 28 H 28 H 28 H Rate Blood Pressure 102/56 102/48 104/57 O2 Sat by Pulse 73 L 73 L 73 L Oximetry 02/20/21 02/20/21 02/20/21 08:00 08:15 08:30 Temperature 98.5 F Pulse Rate 85 82 84 Pulse Rate [ 84 From Monitor] Respiratory 28 H 28 H 28 H Rate Blood Pressure 101/54 101/54 103/59 O2 Sat by Pulse 72 L 73 L 74 L Oximetry 02/20/21 02/20/21 02/20/21 08:45 09:00 09:15 Temperature Pulse Rate 85 85 85 Pulse Rate [ From Monitor] Respiratory 28 H 28 H 28 H Rate Blood Pressure 103/59 96/52 96/52 O2 Sat by Pulse 76 L 75 L 76 L Oximetry 02/20/21 02/20/21 02/20/21 09:30 09:45 10:01 Temperature Pulse Rate 85 85 86 Pulse Rate [ From Monitor] Respiratory 28 H 28 H 28 H Rate Blood Pressure 103/53 97/50 103/53 O2 Sat by Pulse 74 L 74 L 75 L Oximetry 02/20/21 02/20/21 02/20/21 10:15 10:30 10:45 Temperature Pulse Rate 85 86 86 Pulse Rate [ From Monitor] Respiratory 28 H 28 H 28 H Rate Blood Pressure 96/51 94/50 94/50 O2 Sat by Pulse 75 L 76 L 76 L Oximetry 02/20/21 02/20/21 02/20/21 11:01 11:15 11:30 Temperature Pulse Rate 85 85 81 Pulse Rate [ From Monitor] Respiratory 28 H 28 H 28 H Rate Blood Pressure 86/50 86/50 91/54 O2 Sat by Pulse 76 L 76 L 74 L Oximetry 02/20/21 02/20/21 02/20/21 11:45 12:00 12:15 Temperature 98.6 F Pulse Rate 84 87 87 Pulse Rate [ 86 From Monitor] Respiratory 28 H 28 H 28 H Rate Blood Pressure 91/54 110/53 110/53 O2 Sat by Pulse 76 L 77 L 77 L Oximetry 02/20/21 02/20/21 02/20/21 12:30 12:34 12:45 Temperature Pulse Rate 88 89 Pulse Rate [ From Monitor] Respiratory 28 H 28 H 28 H Rate Blood Pressure 98/58 98/58 O2 Sat by Pulse 76 L 77 L Oximetry 02/20/21 02/20/21 02/20/21 13:00 13:15 13:31 Temperature Pulse Rate 88 90 88 Pulse Rate [ From Monitor] Respiratory 28 H 28 H 28 H Rate Blood Pressure 95/56 95/56 118/64 O2 Sat by Pulse 76 L 75 L 77 L Oximetry 02/20/21 02/20/21 13:45 14:00 Temperature Pulse Rate 91 H 91 H Pulse Rate [ From Monitor] Respiratory 28 H 28 H Rate Blood Pressure 118/64 118/67 O2 Sat by Pulse 77 L 78 L Oximetry Constitutional: no acute distress (sedated), other (elderly lady without significant patient ventilator dyssynchrony) Eyes: non-icteric ENT: oropharynx moist, other (ETT 24 cm JANETH) Neck: supple, no lymphadenopathy, no JVD, other (large circumference) Effort: mildly labored Ascultation: Bilateral: diminished breath sounds, rales, other (right anterior chest tube in place; persistent SQ emphysema) Percussion: Bilateral: not dull Cardiovascular: regular rate and rhythm Gastrointestinal: normoactive bowel sounds, soft, non-tender, non-distended Integumentary: normal Extremities: no edema, pulses normal, no ischemia or petechiae, edema Neurologic: pupils equal and round, CN II-XII normal, unable to assess, other (sedated) Psychiatric: other (unable to assess re: AMS) CBC and BMP: 02/20/21 06:10 02/20/21 06:10 ABG, PT/INR, D-dimer: ABG ABG pH 7.406 (7.320-7.450) 02/19/21 04:00 POC ABG pCO2 34.3 mmHg (32.0-48.0) 02/19/21 04:00 ABG pCO2 39.8 mm Hg 02/16/21 10:45 POC ABG pO2 59.8 mmHg (83-108) L 02/19/21 04:00 ABG pO2 37.9 mm Hg (80.0-90.0) L* 02/16/21 10:45 POC ABG HCO3 21.1 02/19/21 04:00 ABG O2 Saturation 89.6 (0-100) 02/19/21 04:00 PT/INR, D-dimer PT 16.9 Sec. (12.2-14.9) H 02/17/21 15:51 INR 1.31 (0.87-1.13) H 02/17/21 15:51 D-Dimer 6346.92 ng/mlDDU (0-234) H 02/20/21 06:10 Abnormal lab findings: Abnormal Labs 02/13/21 02/13/21 02/13/21 12:46 13:28 13:28 WBC RBC Hgb Hct MCV MCH 25 L RDW 15.7 H Lymph % (Auto) 5.9 L Lymph # (Auto) 0.3 L Seg Neutrophils % 89.3 H PT 15.0 H INR APTT 23.8 L Fibrinogen D-Dimer 478.95 H Heparin Anti-Xa Level ABG pH POC ABG pCO2 POC ABG pO2 ABG pO2 ABG O2 Saturation ABG Base Excess ABG Hemoglobin ABG Oxyhemoglobin ABG Sodium ABG Potassium ABG Glucose Oxyhemoglobin Carboxyhemoglobin Potassium Chloride Carbon Dioxide BUN Creatinine Glucose POC Glucose 190 H Lactic Acid Calcium Phosphorus Magnesium TIBC Ferritin AST Lactate Dehydrogenase Total Creatine Kinase Troponin T C-Reactive Protein NT-Pro-B Natriuret Pep Albumin Triglycerides TSH Free T3 Index Arterial Blood Glucose Arterial Blood Ionized Calcium Urine WBC (Auto) Urine Creatinine Salicylates Acetaminophen Coronavirus (PCR) 02/13/21 02/13/21 02/13/21 13:28 13:28 13:28 WBC RBC Hgb Hct MCV MCH RDW Lymph % (Auto) Lymph # (Auto) Seg Neutrophils % PT INR APTT Fibrinogen D-Dimer Heparin Anti-Xa Level ABG pH POC ABG pCO2 POC ABG pO2 ABG pO2 ABG O2 Saturation ABG Base Excess ABG Hemoglobin ABG Oxyhemoglobin ABG Sodium ABG Potassium ABG Glucose Oxyhemoglobin Carboxyhemoglobin Potassium 5.1 H Chloride 95.7 L Carbon Dioxide BUN 36 H Creatinine 2.0 H Glucose 172 H POC Glucose Lactic Acid 6.50 H* Calcium 7.5 L Phosphorus Magnesium TIBC Ferritin AST 81 H Lactate Dehydrogenase Total Creatine Kinase 1572 H Troponin T C-Reactive Protein NT-Pro-B Natriuret Pep Albumin 3.4 L Triglycerides TSH 8.530 H Free T3 Index Arterial Blood Glucose Arterial Blood Ionized Calcium Urine WBC (Auto) Urine Creatinine Salicylates Acetaminophen Coronavirus (PCR) 02/13/21 02/13/21 02/13/21 13:28 13:28 13:28 WBC RBC Hgb Hct MCV MCH RDW Lymph % (Auto) Lymph # (Auto) Seg Neutrophils % PT INR APTT Fibrinogen D-Dimer Heparin Anti-Xa Level ABG pH POC ABG pCO2 POC ABG pO2 ABG pO2 ABG O2 Saturation ABG Base Excess ABG Hemoglobin ABG Oxyhemoglobin ABG Sodium ABG Potassium ABG Glucose Oxyhemoglobin Carboxyhemoglobin Potassium Chloride Carbon Dioxide BUN Creatinine Glucose POC Glucose Lactic Acid Calcium Phosphorus Magnesium 2.60 H TIBC Ferritin AST Lactate Dehydrogenase Total Creatine Kinase Troponin T C-Reactive Protein NT-Pro-B Natriuret Pep Albumin Triglycerides TSH Free T3 Index Arterial Blood Glucose Arterial Blood Ionized Calcium Urine WBC (Auto) Urine Creatinine Salicylates < 0.3 L Acetaminophen 5.0 L Coronavirus (PCR) 02/13/21 02/13/21 02/13/21 13:36 13:36 13:36 WBC RBC Hgb Hct MCV MCH RDW Lymph % (Auto) Lymph # (Auto) Seg Neutrophils % PT INR APTT Fibrinogen D-Dimer Heparin Anti-Xa Level ABG pH POC ABG pCO2 POC ABG pO2 ABG pO2 ABG O2 Saturation ABG Base Excess ABG Hemoglobin ABG Oxyhemoglobin ABG Sodium ABG Potassium ABG Glucose Oxyhemoglobin Carboxyhemoglobin Potassium Chloride Carbon Dioxide BUN Creatinine Glucose 176 H POC Glucose Lactic Acid Calcium Phosphorus Magnesium TIBC Ferritin 1667.0 H AST Lactate Dehydrogenase 713 H Total Creatine Kinase Troponin T C-Reactive Protein 30.70 H NT-Pro-B Natriuret Pep 3473 H Albumin Triglycerides TSH Free T3 Index Arterial Blood Glucose Arterial Blood Ionized Calcium Urine WBC (Auto) Urine Creatinine Salicylates Acetaminophen Coronavirus (PCR) 02/13/21 02/13/21 02/13/21 14:18 16:27 16:27 WBC RBC Hgb Hct MCV MCH RDW Lymph % (Auto) Lymph # (Auto) Seg Neutrophils % PT INR APTT Fibrinogen D-Dimer Heparin Anti-Xa Level ABG pH 7.528 H POC ABG pCO2 POC ABG pO2 49.8 L ABG pO2 ABG O2 Saturation ABG Base Excess ABG Hemoglobin 11.8 L ABG Oxyhemoglobin 85.8 L ABG Sodium ABG Potassium ABG Glucose 180 H Oxyhemoglobin Carboxyhemoglobin Potassium Chloride Carbon Dioxide BUN Creatinine Glucose POC Glucose Lactic Acid 5.30 H* Calcium Phosphorus Magnesium TIBC Ferritin AST Lactate Dehydrogenase Total Creatine Kinase Troponin T 0.034 H D C-Reactive Protein NT-Pro-B Natriuret Pep Albumin Triglycerides 181 H TSH Free T3 Index Arterial Blood Glucose 180 H Arterial Blood Ionized Calcium 3.7 L Urine WBC (Auto) Urine Creatinine Salicylates Acetaminophen Coronavirus (PCR) 02/13/21 02/13/21 02/13/21 16:27 18:39 18:39 WBC RBC Hgb Hct MCV MCH RDW Lymph % (Auto) Lymph # (Auto) Seg Neutrophils % PT 15.3 H INR 1.16 H APTT Fibrinogen D-Dimer Heparin Anti-Xa Level ABG pH POC ABG pCO2 POC ABG pO2 ABG pO2 ABG O2 Saturation ABG Base Excess ABG Hemoglobin ABG Oxyhemoglobin ABG Sodium ABG Potassium ABG Glucose Oxyhemoglobin Carboxyhemoglobin Potassium Chloride Carbon Dioxide BUN Creatinine Glucose POC Glucose Lactic Acid 3.80 H* Calcium Phosphorus Magnesium TIBC Ferritin AST Lactate Dehydrogenase Total Creatine Kinase Troponin T 0.033 H C-Reactive Protein NT-Pro-B Natriuret Pep Albumin Triglycerides TSH Free T3 Index Arterial Blood Glucose Arterial Blood Ionized Calcium Urine WBC (Auto) Urine Creatinine Salicylates Acetaminophen Coronavirus (PCR) 02/13/21 02/13/21 02/14/21 21:00 21:27 03:54 WBC RBC Hgb Hct MCV MCH RDW Lymph % (Auto) Lymph # (Auto) Seg Neutrophils % PT INR APTT Fibrinogen D-Dimer Heparin Anti-Xa Level 0.96 H ABG pH POC ABG pCO2 POC ABG pO2 44.5 L ABG pO2 ABG O2 Saturation ABG Base Excess ABG Hemoglobin ABG Oxyhemoglobin 78.3 L ABG Sodium ABG Potassium ABG Glucose 181 H Oxyhemoglobin Carboxyhemoglobin Potassium Chloride Carbon Dioxide BUN Creatinine Glucose POC Glucose Lactic Acid Calcium Phosphorus Magnesium TIBC Ferritin AST Lactate Dehydrogenase Total Creatine Kinase Troponin T C-Reactive Protein NT-Pro-B Natriuret Pep Albumin Triglycerides TSH Free T3 Index Arterial Blood Glucose 181 H Arterial Blood Ionized Calcium 4.2 L Urine WBC (Auto) 31.0 H Urine Creatinine Salicylates Acetaminophen Coronavirus (PCR) 02/14/21 02/14/21 02/14/21 03:54 10:40 10:40 WBC RBC Hgb Hct MCV MCH RDW Lymph % (Auto) Lymph # (Auto) Seg Neutrophils % PT INR APTT Fibrinogen D-Dimer 1007.53 H Heparin Anti-Xa Level ABG pH POC ABG pCO2 POC ABG pO2 ABG pO2 ABG O2 Saturation ABG Base Excess ABG Hemoglobin ABG Oxyhemoglobin ABG Sodium ABG Potassium ABG Glucose Oxyhemoglobin Carboxyhemoglobin Potassium Chloride Carbon Dioxide BUN 41 H Creatinine 2.4 H Glucose 210 H POC Glucose Lactic Acid Calcium 7.7 L Phosphorus Magnesium TIBC Ferritin 1148.0 H AST Lactate Dehydrogenase Total Creatine Kinase Troponin T C-Reactive Protein NT-Pro-B Natriuret Pep Albumin Triglycerides TSH Free T3 Index Arterial Blood Glucose Arterial Blood Ionized Calcium Urine WBC (Auto) Urine Creatinine Salicylates Acetaminophen Coronavirus (PCR) 02/14/21 02/14/21 02/14/21 10:40 11:33 17:51 WBC RBC Hgb Hct MCV MCH RDW Lymph % (Auto) Lymph # (Auto) Seg Neutrophils % PT INR APTT Fibrinogen D-Dimer Heparin Anti-Xa Level ABG pH 7.285 L POC ABG pCO2 51.7 H POC ABG pO2 36.7 L ABG pO2 ABG O2 Saturation ABG Base Excess ABG Hemoglobin ABG Oxyhemoglobin 57.9 L ABG Sodium ABG Potassium ABG Glucose 310 H Oxyhemoglobin Carboxyhemoglobin Potassium Chloride Carbon Dioxide BUN Creatinine Glucose POC Glucose 265 H Lactic Acid Calcium Phosphorus Magnesium TIBC Ferritin AST Lactate Dehydrogenase 1381 H Total Creatine Kinase Troponin T C-Reactive Protein 36.70 H NT-Pro-B Natriuret Pep Albumin Triglycerides TSH Free T3 Index Arterial Blood Glucose 310 H Arterial Blood Ionized Calcium 3.9 L Urine WBC (Auto) Urine Creatinine Salicylates Acetaminophen Coronavirus (PCR) 02/14/21 02/14/21 02/14/21 18:00 18:15 18:33 WBC RBC Hgb Hct MCV MCH RDW Lymph % (Auto) Lymph # (Auto) Seg Neutrophils % PT INR APTT Fibrinogen D-Dimer Heparin Anti-Xa Level 1.09 H ABG pH POC ABG pCO2 POC ABG pO2 41.4 L ABG pO2 ABG O2 Saturation ABG Base Excess ABG Hemoglobin ABG Oxyhemoglobin 70.5 L ABG Sodium ABG Potassium ABG Glucose 308 H Oxyhemoglobin Carboxyhemoglobin Potassium Chloride Carbon Dioxide BUN Creatinine Glucose POC Glucose 260 H Lactic Acid Calcium Phosphorus Magnesium TIBC Ferritin AST Lactate Dehydrogenase Total Creatine Kinase Troponin T C-Reactive Protein NT-Pro-B Natriuret Pep Albumin Triglycerides TSH Free T3 Index Arterial Blood Glucose 308 H Arterial Blood Ionized Calcium 4.0 L Urine WBC (Auto) Urine Creatinine Salicylates Acetaminophen Coronavirus (PCR) 02/14/21 02/14/21 02/14/21 18:45 18:45 Unknown WBC RBC Hgb Hct MCV MCH RDW Lymph % (Auto) Lymph # (Auto) Seg Neutrophils % PT INR APTT Fibrinogen D-Dimer Heparin Anti-Xa Level ABG pH POC ABG pCO2 POC ABG pO2 ABG pO2 ABG O2 Saturation ABG Base Excess ABG Hemoglobin ABG Oxyhemoglobin ABG Sodium ABG Potassium ABG Glucose Oxyhemoglobin Carboxyhemoglobin Potassium Chloride Carbon Dioxide BUN Creatinine Glucose POC Glucose Lactic Acid 2.70 H* Calcium Phosphorus Magnesium TIBC Ferritin AST Lactate Dehydrogenase Total Creatine Kinase Troponin T C-Reactive Protein NT-Pro-B Natriuret Pep Albumin Triglycerides TSH Free T3 Index Arterial Blood Glucose Arterial Blood Ionized Calcium Urine WBC (Auto) Urine Creatinine 80.0 H Salicylates Acetaminophen Coronavirus (PCR) Positive A 02/15/21 02/15/21 02/15/21 00:25 04:07 05:00 WBC 16.0 H RBC Hgb Hct MCV 77 L MCH 25 L RDW 16.1 H Lymph % (Auto) Lymph # (Auto) Seg Neutrophils % PT INR APTT Fibrinogen D-Dimer Heparin Anti-Xa Level ABG pH POC ABG pCO2 POC ABG pO2 53.2 L ABG pO2 ABG O2 Saturation ABG Base Excess ABG Hemoglobin ABG Oxyhemoglobin 85.1 L ABG Sodium ABG Potassium ABG Glucose 257 H Oxyhemoglobin Carboxyhemoglobin 0.4 L Potassium Chloride Carbon Dioxide BUN Creatinine Glucose POC Glucose 256 H Lactic Acid Calcium Phosphorus Magnesium TIBC Ferritin AST Lactate Dehydrogenase Total Creatine Kinase Troponin T C-Reactive Protein NT-Pro-B Natriuret Pep Albumin Triglycerides TSH Free T3 Index Arterial Blood Glucose 257 H Arterial Blood Ionized Calcium 3.8 L Urine WBC (Auto) Urine Creatinine Salicylates Acetaminophen Coronavirus (PCR) 02/15/21 02/15/21 02/15/21 05:00 05:00 05:43 WBC RBC Hgb Hct MCV MCH RDW Lymph % (Auto) Lymph # (Auto) Seg Neutrophils % PT INR APTT Fibrinogen D-Dimer Heparin Anti-Xa Level 0.92 H ABG pH POC ABG pCO2 POC ABG pO2 ABG pO2 ABG O2 Saturation ABG Base Excess ABG Hemoglobin ABG Oxyhemoglobin ABG Sodium ABG Potassium ABG Glucose Oxyhemoglobin Carboxyhemoglobin Potassium Chloride Carbon Dioxide BUN 50 H Creatinine 3.2 H Glucose 247 H POC Glucose 253 H Lactic Acid Calcium 7.0 L Phosphorus Magnesium TIBC Ferritin AST Lactate Dehydrogenase Total Creatine Kinase Troponin T C-Reactive Protein NT-Pro-B Natriuret Pep Albumin Triglycerides TSH Free T3 Index Arterial Blood Glucose Arterial Blood Ionized Calcium Urine WBC (Auto) Urine Creatinine Salicylates Acetaminophen Coronavirus (PCR) 02/15/21 02/15/21 02/15/21 12:11 15:36 23:29 WBC RBC Hgb Hct MCV MCH RDW Lymph % (Auto) Lymph # (Auto) Seg Neutrophils % PT INR APTT Fibrinogen D-Dimer Heparin Anti-Xa Level ABG pH POC ABG pCO2 POC ABG pO2 ABG pO2 ABG O2 Saturation ABG Base Excess ABG Hemoglobin ABG Oxyhemoglobin ABG Sodium ABG Potassium ABG Glucose Oxyhemoglobin Carboxyhemoglobin Potassium Chloride Carbon Dioxide BUN Creatinine Glucose POC Glucose 145 H 200 H 220 H Lactic Acid Calcium Phosphorus Magnesium TIBC Ferritin AST Lactate Dehydrogenase Total Creatine Kinase Troponin T C-Reactive Protein NT-Pro-B Natriuret Pep Albumin Triglycerides TSH Free T3 Index Arterial Blood Glucose Arterial Blood Ionized Calcium Urine WBC (Auto) Urine Creatinine Salicylates Acetaminophen Coronavirus (PCR) 02/16/21 02/16/21 02/16/21 01:31 04:00 04:30 WBC RBC Hgb Hct MCV MCH RDW Lymph % (Auto) Lymph # (Auto) Seg Neutrophils % PT INR APTT Fibrinogen D-Dimer Heparin Anti-Xa Level ABG pH 7.243 L POC ABG pCO2 48.6 H POC ABG pO2 57.1 L ABG pO2 ABG O2 Saturation ABG Base Excess ABG Hemoglobin ABG Oxyhemoglobin 82.1 L ABG Sodium ABG Potassium ABG Glucose 287 H Oxyhemoglobin Carboxyhemoglobin Potassium Chloride Carbon Dioxide BUN 66 H Creatinine 4.0 H Glucose 277 H POC Glucose 241 H Lactic Acid Calcium 7.5 L Phosphorus Magnesium TIBC Ferritin AST Lactate Dehydrogenase Total Creatine Kinase Troponin T C-Reactive Protein NT-Pro-B Natriuret Pep Albumin Triglycerides 351 H TSH Free T3 Index Arterial Blood Glucose 287 H Arterial Blood Ionized Calcium 4.0 L Urine WBC (Auto) Urine Creatinine Salicylates Acetaminophen Coronavirus (PCR) 02/16/21 02/16/21 02/16/21 04:30 05:06 08:00 WBC RBC Hgb Hct MCV MCH RDW Lymph % (Auto) Lymph # (Auto) Seg Neutrophils % PT INR APTT Fibrinogen D-Dimer Heparin Anti-Xa Level ABG pH 7.292 L POC ABG pCO2 POC ABG pO2 33.5 L ABG pO2 ABG O2 Saturation ABG Base Excess ABG Hemoglobin ABG Oxyhemoglobin 55.0 L ABG Sodium ABG Potassium 4.7 H ABG Glucose 249 H Oxyhemoglobin Carboxyhemoglobin 0.4 L Potassium Chloride Carbon Dioxide BUN Creatinine Glucose POC Glucose 242 H Lactic Acid Calcium Phosphorus Magnesium TIBC Ferritin AST Lactate Dehydrogenase Total Creatine Kinase Troponin T C-Reactive Protein NT-Pro-B Natriuret Pep Albumin Triglycerides TSH Free T3 Index 0.8 L Arterial Blood Glucose 249 H Arterial Blood Ionized Calcium 3.7 L Urine WBC (Auto) Urine Creatinine Salicylates Acetaminophen Coronavirus (PCR) 02/16/21 02/16/21 02/16/21 10:10 10:31 10:31 WBC RBC Hgb Hct MCV MCH RDW Lymph % (Auto) Lymph # (Auto) Seg Neutrophils % PT INR APTT Fibrinogen D-Dimer 2846.74 H Heparin Anti-Xa Level ABG pH POC ABG pCO2 POC ABG pO2 30.7 L ABG pO2 ABG O2 Saturation ABG Base Excess ABG Hemoglobin ABG Oxyhemoglobin 50.9 L ABG Sodium ABG Potassium 4.6 H ABG Glucose 215 H Oxyhemoglobin Carboxyhemoglobin Potassium Chloride Carbon Dioxide BUN Creatinine Glucose POC Glucose Lactic Acid Calcium Phosphorus Magnesium TIBC Ferritin 1164.0 H AST Lactate Dehydrogenase Total Creatine Kinase Troponin T C-Reactive Protein NT-Pro-B Natriuret Pep Albumin Triglycerides TSH Free T3 Index Arterial Blood Glucose 215 H Arterial Blood Ionized Calcium 3.7 L Urine WBC (Auto) Urine Creatinine Salicylates Acetaminophen Coronavirus (PCR) 02/16/21 02/16/21 02/16/21 10:31 10:45 12:06 WBC RBC Hgb Hct MCV MCH RDW Lymph % (Auto) Lymph # (Auto) Seg Neutrophils % PT INR APTT Fibrinogen D-Dimer Heparin Anti-Xa Level ABG pH 7.330 L POC ABG pCO2 POC ABG pO2 ABG pO2 37.9 L* ABG O2 Saturation 64.0 L ABG Base Excess -5.0 L ABG Hemoglobin 11.8 L ABG Oxyhemoglobin ABG Sodium ABG Potassium ABG Glucose Oxyhemoglobin 62.7 L Carboxyhemoglobin Potassium Chloride Carbon Dioxide BUN Creatinine Glucose POC Glucose 223 H Lactic Acid Calcium Phosphorus Magnesium TIBC Ferritin AST Lactate Dehydrogenase 1678 H Total Creatine Kinase Troponin T C-Reactive Protein 33.10 H NT-Pro-B Natriuret Pep Albumin Triglycerides TSH Free T3 Index Arterial Blood Glucose Arterial Blood Ionized Calcium Urine WBC (Auto) Urine Creatinine Salicylates Acetaminophen Coronavirus (PCR) 02/16/21 02/16/21 02/16/21 13:23 17:24 20:08 WBC 20.3 H RBC 6.08 H Hgb 15.1 H D Hct 45.9 H D MCV 75 L MCH 25 L RDW 16.4 H Lymph % (Auto) Lymph # (Auto) Seg Neutrophils % PT INR APTT Fibrinogen D-Dimer Heparin Anti-Xa Level 1.06 H ABG pH POC ABG pCO2 POC ABG pO2 ABG pO2 ABG O2 Saturation ABG Base Excess ABG Hemoglobin ABG Oxyhemoglobin ABG Sodium ABG Potassium ABG Glucose Oxyhemoglobin Carboxyhemoglobin Potassium Chloride Carbon Dioxide BUN Creatinine Glucose POC Glucose 272 H Lactic Acid Calcium Phosphorus Magnesium TIBC Ferritin AST Lactate Dehydrogenase Total Creatine Kinase Troponin T C-Reactive Protein NT-Pro-B Natriuret Pep Albumin Triglycerides TSH Free T3 Index Arterial Blood Glucose Arterial Blood Ionized Calcium Urine WBC (Auto) Urine Creatinine Salicylates Acetaminophen Coronavirus (PCR) 02/16/21 02/17/21 02/17/21 23:57 04:00 04:30 WBC 12.5 H RBC Hgb 9.2 L D Hct 28.4 L D MCV 76 L MCH 25 L RDW 15.9 H Lymph % (Auto) Lymph # (Auto) Seg Neutrophils % PT INR APTT Fibrinogen D-Dimer Heparin Anti-Xa Level ABG pH POC ABG pCO2 28.7 L POC ABG pO2 59.0 L ABG pO2 ABG O2 Saturation ABG Base Excess ABG Hemoglobin 10.2 L ABG Oxyhemoglobin 90.3 L ABG Sodium 134.8 L ABG Potassium 3.3 L ABG Glucose 280 H Oxyhemoglobin Carboxyhemoglobin 0.1 L Potassium Chloride Carbon Dioxide BUN Creatinine Glucose POC Glucose 245 H Lactic Acid Calcium Phosphorus Magnesium TIBC Ferritin AST Lactate Dehydrogenase Total Creatine Kinase Troponin T C-Reactive Protein NT-Pro-B Natriuret Pep Albumin Triglycerides TSH Free T3 Index Arterial Blood Glucose 280 H Arterial Blood Ionized Calcium 3.5 L Urine WBC (Auto) Urine Creatinine Salicylates Acetaminophen Coronavirus (PCR) 02/17/21 02/17/21 02/17/21 04:30 04:30 05:48 WBC RBC Hgb Hct MCV MCH RDW Lymph % (Auto) Lymph # (Auto) Seg Neutrophils % PT INR APTT Fibrinogen D-Dimer Heparin Anti-Xa Level ABG pH POC ABG pCO2 POC ABG pO2 ABG pO2 ABG O2 Saturation ABG Base Excess ABG Hemoglobin ABG Oxyhemoglobin ABG Sodium ABG Potassium ABG Glucose Oxyhemoglobin Carboxyhemoglobin Potassium 3.4 L D Chloride Carbon Dioxide 20 L BUN 81 H Creatinine 5.1 H Glucose 260 H POC Glucose 237 H Lactic Acid Calcium 6.3 L D Phosphorus Magnesium 2.40 H TIBC Ferritin AST Lactate Dehydrogenase Total Creatine Kinase Troponin T C-Reactive Protein NT-Pro-B Natriuret Pep Albumin Triglycerides TSH Free T3 Index Arterial Blood Glucose Arterial Blood Ionized Calcium Urine WBC (Auto) Urine Creatinine Salicylates Acetaminophen Coronavirus (PCR) 02/17/21 02/17/21 02/17/21 12:07 12:59 15:51 WBC 12.8 H RBC 3.57 L Hgb 9.0 L Hct 27.0 L MCV 76 L MCH 25 L RDW 16.2 H Lymph % (Auto) Lymph # (Auto) Seg Neutrophils % PT INR APTT Fibrinogen D-Dimer Heparin Anti-Xa Level ABG pH POC ABG pCO2 POC ABG pO2 ABG pO2 ABG O2 Saturation ABG Base Excess ABG Hemoglobin ABG Oxyhemoglobin ABG Sodium ABG Potassium ABG Glucose Oxyhemoglobin Carboxyhemoglobin Potassium Chloride Carbon Dioxide BUN Creatinine Glucose POC Glucose 280 H Lactic Acid Calcium Phosphorus Magnesium 2.70 H TIBC 231 L Ferritin AST Lactate Dehydrogenase Total Creatine Kinase Troponin T C-Reactive Protein NT-Pro-B Natriuret Pep Albumin Triglycerides TSH Free T3 Index Arterial Blood Glucose Arterial Blood Ionized Calcium Urine WBC (Auto) Urine Creatinine Salicylates Acetaminophen Coronavirus (PCR) 02/17/21 02/17/21 02/17/21 15:51 15:51 17:27 WBC RBC Hgb Hct MCV MCH RDW Lymph % (Auto) Lymph # (Auto) Seg Neutrophils % PT 16.9 H INR 1.31 H APTT 90.0 H* Fibrinogen 859 H D-Dimer Heparin Anti-Xa Level ABG pH POC ABG pCO2 POC ABG pO2 ABG pO2 ABG O2 Saturation ABG Base Excess ABG Hemoglobin ABG Oxyhemoglobin ABG Sodium ABG Potassium ABG Glucose Oxyhemoglobin Carboxyhemoglobin Potassium Chloride Carbon Dioxide 17 L BUN 88 H Creatinine 5.1 H Glucose 330 H POC Glucose 294 H Lactic Acid Calcium Phosphorus Magnesium TIBC Ferritin AST Lactate Dehydrogenase Total Creatine Kinase Troponin T C-Reactive Protein NT-Pro-B Natriuret Pep Albumin 3.0 L Triglycerides TSH Free T3 Index Arterial Blood Glucose Arterial Blood Ionized Calcium Urine WBC (Auto) Urine Creatinine Salicylates Acetaminophen Coronavirus (PCR) 02/17/21 02/18/21 02/18/21 23:22 03:00 03:39 WBC 11.5 H RBC 3.18 L Hgb 8.1 L Hct 24.2 L MCV 76 L MCH 26 L RDW 15.8 H Lymph % (Auto) Lymph # (Auto) Seg Neutrophils % PT INR APTT Fibrinogen D-Dimer Heparin Anti-Xa Level ABG pH 7.315 L POC ABG pCO2 POC ABG pO2 66.9 L ABG pO2 ABG O2 Saturation ABG Base Excess ABG Hemoglobin 8.8 L ABG Oxyhemoglobin 90.2 L ABG Sodium ABG Potassium ABG Glucose 290 H Oxyhemoglobin Carboxyhemoglobin 0.3 L Potassium Chloride Carbon Dioxide BUN Creatinine Glucose POC Glucose 252 H Lactic Acid Calcium Phosphorus Magnesium TIBC Ferritin AST Lactate Dehydrogenase Total Creatine Kinase Troponin T C-Reactive Protein NT-Pro-B Natriuret Pep Albumin Triglycerides TSH Free T3 Index Arterial Blood Glucose 290 H Arterial Blood Ionized Calcium 3.4 L Urine WBC (Auto) Urine Creatinine Salicylates Acetaminophen Coronavirus (PCR) 02/18/21 02/18/21 02/18/21 03:39 04:00 06:11 WBC RBC Hgb Hct MCV MCH RDW Lymph % (Auto) Lymph # (Auto) Seg Neutrophils % PT INR APTT Fibrinogen D-Dimer Heparin Anti-Xa Level ABG pH POC ABG pCO2 POC ABG pO2 ABG pO2 ABG O2 Saturation ABG Base Excess ABG Hemoglobin ABG Oxyhemoglobin ABG Sodium ABG Potassium ABG Glucose Oxyhemoglobin Carboxyhemoglobin Potassium Chloride Carbon Dioxide 18 L BUN 95 H Creatinine 5.4 H Glucose 270 H POC Glucose 260 H Lactic Acid Calcium 6.3 L D Phosphorus Magnesium 2.60 H TIBC Ferritin AST Lactate Dehydrogenase Total Creatine Kinase Troponin T C-Reactive Protein NT-Pro-B Natriuret Pep Albumin Triglycerides 717 H TSH Free T3 Index Arterial Blood Glucose Arterial Blood Ionized Calcium Urine WBC (Auto) Urine Creatinine Salicylates Acetaminophen Coronavirus (PCR) 02/18/21 02/18/21 02/18/21 09:45 09:45 09:45 WBC RBC Hgb Hct MCV MCH RDW Lymph % (Auto) Lymph # (Auto) Seg Neutrophils % PT INR APTT Fibrinogen D-Dimer 1769.98 H Heparin Anti-Xa Level ABG pH POC ABG pCO2 POC ABG pO2 ABG pO2 ABG O2 Saturation ABG Base Excess ABG Hemoglobin ABG Oxyhemoglobin ABG Sodium ABG Potassium ABG Glucose Oxyhemoglobin Carboxyhemoglobin Potassium Chloride Carbon Dioxide BUN Creatinine Glucose POC Glucose Lactic Acid Calcium Phosphorus Magnesium TIBC Ferritin 902.0 H AST Lactate Dehydrogenase 784 H Total Creatine Kinase Troponin T C-Reactive Protein 20.30 H NT-Pro-B Natriuret Pep Albumin Triglycerides TSH Free T3 Index Arterial Blood Glucose Arterial Blood Ionized Calcium Urine WBC (Auto) Urine Creatinine Salicylates Acetaminophen Coronavirus (PCR) 02/18/21 02/18/21 02/18/21 11:16 17:59 23:32 WBC RBC Hgb Hct MCV MCH RDW Lymph % (Auto) Lymph # (Auto) Seg Neutrophils % PT INR APTT Fibrinogen D-Dimer Heparin Anti-Xa Level ABG pH POC ABG pCO2 POC ABG pO2 ABG pO2 ABG O2 Saturation ABG Base Excess ABG Hemoglobin ABG Oxyhemoglobin ABG Sodium ABG Potassium ABG Glucose Oxyhemoglobin Carboxyhemoglobin Potassium Chloride Carbon Dioxide BUN Creatinine Glucose POC Glucose 306 H 271 H 222 H Lactic Acid Calcium Phosphorus Magnesium TIBC Ferritin AST Lactate Dehydrogenase Total Creatine Kinase Troponin T C-Reactive Protein NT-Pro-B Natriuret Pep Albumin Triglycerides TSH Free T3 Index Arterial Blood Glucose Arterial Blood Ionized Calcium Urine WBC (Auto) Urine Creatinine Salicylates Acetaminophen Coronavirus (PCR) 02/19/21 02/19/21 02/19/21 04:00 04:25 04:25 WBC 13.6 H RBC 2.99 L Hgb 7.6 L Hct 22.8 L MCV 76 L MCH 25 L RDW 16.0 H Lymph % (Auto) Lymph # (Auto) Seg Neutrophils % PT INR APTT Fibrinogen D-Dimer Heparin Anti-Xa Level < 0.10 L ABG pH POC ABG pCO2 POC ABG pO2 59.8 L ABG pO2 ABG O2 Saturation ABG Base Excess ABG Hemoglobin 8.0 L ABG Oxyhemoglobin 88.6 L ABG Sodium ABG Potassium ABG Glucose 340 H Oxyhemoglobin Carboxyhemoglobin Potassium Chloride Carbon Dioxide BUN Creatinine Glucose POC Glucose Lactic Acid Calcium Phosphorus Magnesium TIBC Ferritin AST Lactate Dehydrogenase Total Creatine Kinase Troponin T C-Reactive Protein NT-Pro-B Natriuret Pep Albumin Triglycerides TSH Free T3 Index Arterial Blood Glucose 340 H Arterial Blood Ionized Calcium 3.8 L Urine WBC (Auto) Urine Creatinine Salicylates Acetaminophen Coronavirus (PCR) 02/19/21 02/19/21 02/19/21 04:25 04:53 08:05 WBC RBC Hgb Hct MCV MCH RDW Lymph % (Auto) Lymph # (Auto) Seg Neutrophils % PT INR APTT Fibrinogen D-Dimer Heparin Anti-Xa Level ABG pH POC ABG pCO2 POC ABG pO2 ABG pO2 ABG O2 Saturation ABG Base Excess ABG Hemoglobin ABG Oxyhemoglobin ABG Sodium ABG Potassium ABG Glucose Oxyhemoglobin Carboxyhemoglobin Potassium Chloride 97.1 L Carbon Dioxide BUN 71 H 72 H Creatinine 4.1 H 4.0 H Glucose 318 H 346 H POC Glucose 293 H Lactic Acid Calcium 8.1 L D 7.5 L Phosphorus 5.00 H Magnesium 2.40 H TIBC Ferritin AST Lactate Dehydrogenase Total Creatine Kinase Troponin T C-Reactive Protein NT-Pro-B Natriuret Pep Albumin 3.8 L Triglycerides TSH Free T3 Index Arterial Blood Glucose Arterial Blood Ionized Calcium Urine WBC (Auto) Urine Creatinine Salicylates Acetaminophen Coronavirus (PCR) 02/19/21 02/19/21 02/19/21 12:37 17:16 23:18 WBC RBC Hgb Hct MCV MCH RDW Lymph % (Auto) Lymph # (Auto) Seg Neutrophils % PT INR APTT Fibrinogen D-Dimer Heparin Anti-Xa Level ABG pH POC ABG pCO2 POC ABG pO2 ABG pO2 ABG O2 Saturation ABG Base Excess ABG Hemoglobin ABG Oxyhemoglobin ABG Sodium ABG Potassium ABG Glucose Oxyhemoglobin Carboxyhemoglobin Potassium Chloride Carbon Dioxide BUN Creatinine Glucose POC Glucose 306 H 254 H 244 H Lactic Acid Calcium Phosphorus Magnesium TIBC Ferritin AST Lactate Dehydrogenase Total Creatine Kinase Troponin T C-Reactive Protein NT-Pro-B Natriuret Pep Albumin Triglycerides TSH Free T3 Index Arterial Blood Glucose Arterial Blood Ionized Calcium Urine WBC (Auto) Urine Creatinine Salicylates Acetaminophen Coronavirus (PCR) 02/20/21 02/20/21 02/20/21 05:39 06:10 06:10 WBC RBC Hgb Hct MCV MCH RDW Lymph % (Auto) Lymph # (Auto) Seg Neutrophils % PT INR APTT Fibrinogen D-Dimer 6346.92 H Heparin Anti-Xa Level ABG pH POC ABG pCO2 POC ABG pO2 ABG pO2 ABG O2 Saturation ABG Base Excess ABG Hemoglobin ABG Oxyhemoglobin ABG Sodium ABG Potassium ABG Glucose Oxyhemoglobin Carboxyhemoglobin Potassium Chloride 96.7 L Carbon Dioxide BUN 59 H Creatinine 3.8 H Glucose 209 H POC Glucose 240 H Lactic Acid Calcium 7.7 L Phosphorus Magnesium TIBC Ferritin AST Lactate Dehydrogenase Total Creatine Kinase Troponin T C-Reactive Protein NT-Pro-B Natriuret Pep Albumin Triglycerides TSH Free T3 Index Arterial Blood Glucose Arterial Blood Ionized Calcium Urine WBC (Auto) Urine Creatinine Salicylates Acetaminophen Coronavirus (PCR) 02/20/21 02/20/21 02/20/21 06:10 06:10 06:10 WBC 17.8 H RBC 3.29 L Hgb 8.3 L Hct 25.7 L MCV 78 L MCH 25 L RDW 16.4 H Lymph % (Auto) Lymph # (Auto) Seg Neutrophils % PT INR APTT Fibrinogen D-Dimer Heparin Anti-Xa Level ABG pH POC ABG pCO2 POC ABG pO2 ABG pO2 ABG O2 Saturation ABG Base Excess ABG Hemoglobin ABG Oxyhemoglobin ABG Sodium ABG Potassium ABG Glucose Oxyhemoglobin Carboxyhemoglobin Potassium Chloride Carbon Dioxide BUN Creatinine Glucose POC Glucose Lactic Acid Calcium Phosphorus Magnesium TIBC Ferritin 1213.0 H AST Lactate Dehydrogenase 724 H Total Creatine Kinase Troponin T C-Reactive Protein 13.60 H NT-Pro-B Natriuret Pep Albumin Triglycerides TSH Free T3 Index Arterial Blood Glucose Arterial Blood Ionized Calcium Urine WBC (Auto) Urine Creatinine Salicylates Acetaminophen Coronavirus (PCR) 02/20/21 12:36 WBC RBC Hgb Hct MCV MCH RDW Lymph % (Auto) Lymph # (Auto) Seg Neutrophils % PT INR APTT Fibrinogen D-Dimer Heparin Anti-Xa Level ABG pH POC ABG pCO2 POC ABG pO2 ABG pO2 ABG O2 Saturation ABG Base Excess ABG Hemoglobin ABG Oxyhemoglobin ABG Sodium ABG Potassium ABG Glucose Oxyhemoglobin Carboxyhemoglobin Potassium Chloride Carbon Dioxide BUN Creatinine Glucose POC Glucose 260 H Lactic Acid Calcium Phosphorus Magnesium TIBC Ferritin AST Lactate Dehydrogenase Total Creatine Kinase Troponin T C-Reactive Protein NT-Pro-B Natriuret Pep Albumin Triglycerides TSH Free T3 Index Arterial Blood Glucose Arterial Blood Ionized Calcium Urine WBC (Auto) Urine Creatinine Salicylates Acetaminophen Coronavirus (PCR) Chest x-ray: image reviewed (L. PTX is increasing) Allied health notes reviewed: nursing
--- NOTE | 2021-02-20 18:29 | Progress Note ---
<SHANTEL GARCIA - Last Filed: 02/20/21 18:23> Assessment and Plan Assessment and plan: 70 YO Female with Obesity Hypoventilation Syndrome, HTN, Hypothyroidism admitted with COVID-19 pneumonia, sepsis, acute respiratory failure A/P NEURO: metabolic encephalopathy; sedated -RASS goal neg 2-3 -avoid Delirium -Sedated with fentanyl, propofol, Versed -SAT daily as allowed with oxygenation -ROSALIND schmittther and two sons family discussion and window visit today->to discuss goals of care and inform care team CV- hypotension due to sepsis/sedation; bradycardia in part due to hypoxia; hx HTN -MAP > 65 -SB-SR -Dopamine drip for SB, goal HR > 55-60/min -Vasopressor/ norepinephrine, wean as tolerated -Blood pressure monitor per protocol Resp- ARDS; acute hypoxic resp failure due to covid19 pna; hx hypoventilation syndrome -Intubated 02-13 with 7.5 oett at 22 at the lips -Mechanical vent- see RT notes for changes -02/19 ABG and CXR reviewed -Right chest tube to wall suction -AM vent settings: AC/PCV: Rate 28, PEEP 22, 100 FiO2 -SPO2 monitoring -VAP bundle -Daily ABGs and CXR GI: risk protein cynthia malnutrition, GBI -TF -Nutrition following -guic positive -GI consulted, appreciate recommendations -PPI iv bid -s/p heparin gtt - SONIA/ ATN/ metabolic acidosis -nephrology following -HD initated 02/16 -HD per nephrology -Past 24-hour +1421 -Cho catheter -Trend BMP -strict I/O -daily weight Heme- coagulopathic with covid -VTE heparin gtt d/c d/t bleeding -SCDs to bilateral lower extremities while in bed -trend CBC and coags ID- covid19 pna with resulting sepsis -covid pos 02/14 -ID following -s/p azithro and ceftriaxone -Patient was not given remdesivir given SONIA -Patient is not a candidate for Actemra given procalcitonin per ID -Methylprednisone -Trend COVID-19 inflammatory markers -Droplet/precautions -Anticoagulation per protocol as tolerated -Follow culture data Endo -hx DM with hyperglycemia; morbid obesity; hx hypothyrodism -Lantus nightly, titrate as needed -SSI -Avoid hypoglycemia -Restarted home levothyroxine -Accu-Cheks every 6 The high probability of a clinically significant, sudden or life threatening deterioration of the all] system(s) required my full and direct attention, intervention and personal management. The aggregate critical care time was [60] minutes. This time is in addition to time spent performing reported procedures but includes the following: [x] Data Review and interpretation [x] Patient assessment and monitoring of vital signs [x] Documentation [x] Medication orders and management Disposition Plan: icu Total Time Spent with Patient (Minutes): 60 History Interval history: 70 YO Female with Obesity Hypoventilation Syndrome, HTN, Hypothyroidism presents to ED for evaluation. Patient is intubated and on ventilatory support at the time my evaluation is unable to write history. Patient history provided by EMS staff, ED staff, as well as the patient family was made available by telephone for interview. As per daughter the patient was in her usual state of health around bedtime which was 2100 hrs. The patient was found down and unresponsive this morning. EMS was notified and upon arrival the patient was found to be in respiratory distress with a pulse oximetry of 50%. The patient was transported to [facility] for further care and evaluation of the aforementioned symptoms. The patient was seen and evaluated in the emergency department. All lab and imaging studies reviewed. The patient was found to have a pulse oxime try in the 60s which is consistent with acute hypoxemic respiratory failure. The patient was deemed unable to protect her airway and was intubated and placed on ventilatory support. The patient was found to have a blood pressure of 69/33. The patient was also found to have pneumonia on chest x-ray which was complicated by septic shock, metabolic acidosis, toxic metabolic encephalopathy, acute kidney injury. Patient admitted to ICU due to multiple organ system failure. Critical care care team consulted in ED. Patient initiated on sepsis protocol as well as coronavirus protocol. Patient found to have poor prognosis. Advanced care planning conducted in ED. No prior admission for review. No medication listed at time of admission for reconciliation. 02-13 Admitted through ER 02-14 proned; when supined this AM became hypoxic- took some time to recover 02/15 desaturated when supined this AM- now recovered 02/16: Saturation issues->increased sedation which resolved it today, Nephro to initiate HD in 24-48 hours, trialysis placed. 02/[address] for pneumo placed 02/18: Patient had a coughing fit and desaturated and zina to 30s overnight. 02/19: GI signed off todAY. Patient desaturated mid morning and peep was increased to 20 and slowly recovered to 70s. Dr Jefferson informed daughter of events who still wishes for her mother to be a full code. 02/20: remains with spo2 in the [address] Vasquez had a discussion face to face with kids and allowed window visit to discuss goals of care. Hospitalist Physical - Constitutional Vitals: Temp Pulse Resp BP Pulse Ox 98.6 F 93 H 28 H 114/60 76 L 02/20/21 12:00 02/20/21 16:45 02/20/21 16:45 02/20/21 16:45 02/20/21 16:45 General appearance: Present: severe distress, well-nourished, obese - EENT ENT: dentition normal - Neck Neck: Present: other (subqair). Absent: masses or JVD, cervical LAD - Respiratory Respiratory effort: labored Respiratory: bilateral: diminished - Cardiovascular Rhythm: regular - Extremities Extremities: pulses intact, pulses symmetrical Peripheral Pulses: within normal limits - Abdominal General gastrointestinal: soft, non-tender - Integumentary Integumentary: Present: dry (s) - Psychiatric Psychiatric: other (sedated) - Neurologic Neurologic: other (sedated) - Allied Health Allied health notes reviewed: nursing, RT HEART Score - HEART Score Troponin: Troponin T 0.033 ng/mL (0.00-0.029) H 02/13/21 18:39 Results - Labs CBC & Chem 7: 02/20/21 06:10 02/20/21 06:10 Labs: Laboratory Last Values WBC 17.8 K/mm3 (4.5-11.0) H 02/20/21 06:10 RBC 3.29 M/mm3 (3.65-5.03) L 02/20/21 06:10 Hgb 8.3 gm/dl (10.1-14.3) L 02/20/21 06:10 Hct 25.7 % (30.3-42.9) L 02/20/21 06:10 MCV 78 fl (79-97) L 02/20/21 06:10 MCH 25 pg (28-32) L 02/20/21 06:10 MCHC 32 % (30-34) 02/20/21 06:10 RDW 16.4 % (13.2-15.2) H 02/20/21 06:10 Plt Count 294 K/mm3 (140-440) 02/20/21 06:10 Lymph % (Auto) 5.9 % (13.4-35.0) L 02/13/21 13:28 [place]key % (Auto) 4.5 % (0.0-7.3) 02/13/21 13:28 Eos % (Auto) 0.0 % (0.0-4.3) 02/13/21 13:28 Baso % (Auto) 0.3 % (0.0-1.8) 02/13/21 13:28 Lymph # (Auto) 0.3 K/mm3 (1.2-5.4) L 02/13/21 13:28 [place]ickey # (Auto) 0.3 K/mm3 (0.0-0.8) 02/13/21 13:28 Eos # (Auto) 0.0 K/mm3 (0.0-0.4) 02/13/21 13:28 Baso # (Auto) 0.0 K/mm3 (0.0-0.1) 02/13/21 13:28 Seg Neutrophils % 89.3 % (40.0-70.0) H 02/13/21 13:28 Seg Neutrophils # 5.2 K/mm3 (1.8-7.7) 02/13/21 13:28 PT 16.9 Sec. (12.2-14.9) H 02/17/21 15:51 INR 1.31 (0.87-1.13) H 02/17/21 15:51 APTT 90.0 Sec. (24.2-36.6) H* 02/17/21 15:51 Fibrinogen 859 mg/dl (211-480) H 02/17/21 15:51 D-Dimer 6346.92 ng/mlDDU (0-234) H 02/20/21 06:10 Heparin Anti-Xa Level < 0.10 U.I./ml (0.3-0.7) L 02/19/21 04:25 ABG pH 7.406 (7.320-7.450) 02/19/21 04:00 POC ABG pCO2 34.3 mmHg (32.0-48.0) 02/19/21 04:00 ABG pCO2 39.8 mm Hg 02/16/21 10:45 POC ABG pO2 59.8 mmHg (83-108) L 02/19/21 04:00 ABG pO2 37.9 mm Hg (80.0-90.0) L* 02/16/21 10:45 POC ABG HCO3 21.1 02/19/21 04:00 ABG HCO3 20.5 mmol/L (20.0-26.0) 02/16/21 10:45 ABG O2 Saturation 89.6 (0-100) 02/19/21 04:00 ABG O2 Content 10.4 (0.0-44) 02/16/21 10:45 POC ABG Base Excess -3.2 02/19/21 04:00 ABG Base Excess -5.0 mmol/L (-2.0-3.0) L 02/16/21 10:45 ABG Hemoglobin 8.0 (12.0-17.5) L 02/19/21 04:00 ABG Oxyhemoglobin 88.6 (94-98) L 02/19/21 04:00 ABG Carboxyhemoglobin 1.2 % (0.0-5.0) 02/16/21 10:45 ABG Methemoglobin 0.3 (0.0-1.5) 02/19/21 04:00 ABG Sodium 136.8 mmol/L (136.0-145.0) 02/19/21 04:00 ABG Potassium 3.7 mmol/L (3.40-4.50) 02/19/21 04:00 ABG Chloride 103.0 mmol/L (98-107) 02/19/21 04:00 ABG Glucose 340 mg/dL (65-95) H 02/19/21 04:00 Oxyhemoglobin 62.7 % (95.0-99.0) L 02/16/21 10:45 Carboxyhemoglobin 0.8 (0.5-1.5) 02/19/21 04:00 FiO2 100 % 02/16/21 10:45 FiO2 % 100.0 02/19/21 04:00 Sodium 137 mmol/L (137-145) 02/20/21 06:10 Potassium 4.9 mmol/L (3.6-5.0) D 02/20/21 06:10 Chloride 96.7 mmol/L (98-107) L 02/20/21 06:10 Carbon Dioxide 22 mmol/L (22-30) 02/20/21 06:10 Anion Gap 23 mmol/L 02/20/21 06:10 BUN 59 mg/dL (7-17) H 02/20/21 06:10 Creatinine 3.8 mg/dL (0.6-1.2) H 02/20/21 06:10 Estimated GFR 14 ml/min 02/20/21 06:10 BUN/Creatinine Ratio 16 % 02/20/21 06:10 Glucose 209 mg/dL (65-100) H 02/20/21 06:10 POC Glucose 302 mg/dL (70-105) H 02/20/21 17:00 Lactic Acid 1.90 mmol/L (0.7-2.0) 02/14/21 22:33 Calcium 7.7 mg/dL (8.4-10.2) L 02/20/21 06:10 Phosphorus 5.00 mg/dL (2.5-4.5) H 02/19/21 04:25 Magnesium 2.40 mg/dL (1.7-2.3) H 02/19/21 04:25 Iron 42 ug/dL (37-170) 02/17/21 12:59 TIBC 231 mcg/dL (250-450) L 02/17/21 12:59 % Saturation 18.18 % 02/17/21 12:59 Transferrin 193 mg/dl (192-382) 02/17/21 12:59 Ferritin 1213.0 ng/mL (10.0-200.0) H 02/20/21 06:10 Total Bilirubin 0.60 mg/dL (0.1-1.2) 02/19/21 04:25 Direct Bilirubin < 0.2 mg/dL (0-0.2) 02/13/21 13:28 Indirect Bilirubin 0.2 mg/dL 02/13/21 13:28 AST 31 units/L (5-40) 02/19/21 04:25 ALT 20 units/L (7-56) 02/19/21 04:25 Alkaline Phosphatase 84 units/L (35-129) 02/19/21 04:25 Ammonia 48.0 umol/L (25-60) 02/13/21 13:28 Lactate Dehydrogenase 724 units/L (91-180) H 02/20/21 06:10 Total Creatine Kinase 1572 units/L (30-135) H 02/13/21 13:28 Troponin T 0.033 ng/mL (0.00-0.029) H 02/13/21 18:39 C-Reactive Protein 13.60 mg/dL (0.00-1.30) H 02/20/21 06:10 NT-Pro-B Natriuret Pep 3473 pg/mL (0-900) H 02/13/21 13:36 Total Protein 7.3 g/dL (6.3-8.2) 02/19/21 04:25 Albumin 3.8 g/dL (3.9-5) L 02/19/21 04:25 Albumin/Globulin Ratio 1.1 % 02/19/21 04:25 Triglycerides 717 mg/dL (2-149) H 02/18/21 04:00 Cholesterol 130 mg/dL (50-199) 02/13/21 16:27 LDL Cholesterol Direct 68 mg/dL (50-130) 02/13/21 16:27 HDL Cholesterol 40 mg/dL (40-59) 02/13/21 16:27 Cholesterol/HDL Ratio 3.25 % 02/13/21 16:27 Lipase 35 units/L (13-60) 02/13/21 13:28 Procalcitonin 58.83 ng/mL (<0.15) 02/14/21 10:40 TSH 8.530 mlU/mL (0.270-4.200) H 02/13/21 13:28 Free T3 Index 0.8 pg/mL (2.3-4.2) L 02/16/21 04:30 Arterial Blood Glucose 340 mg/dL (65-95) H 02/19/21 04:00 Arterial Blood Ionized Calcium 3.8 mg/dL (4.6-5.3) L 02/19/21 04:00 Urine Color Laura (Yellow) 02/13/21 21:27 Urine Turbidity Turbid (Clear) 02/13/21 21:27 Urine pH 5.0 (5.0-7.0) 02/13/21 21: Ur Specific [place] 1.025 (1.003-1.030) 02/13/21 21: Urine Protein >500 mg/dL (Negative) 02/13/21 21: Urine Glucose (UA) Neg mg/dL (Negative) 02/13/21 21: Urine Ketones Neg mg/dL (Negative) 02/13/21 21: Urine Blood Lg (Negative) 02/13/21 21: Urine Nitrite Neg (Negative) 02/13/21 21: Urine Bilirubin Neg (Negative) 02/13/21 21: Urine Urobilinogen < 2.0 mg/dL (<2.0) 02/13/21 21: Ur Leukocyte Esterase Neg (Negative) 02/13/21 21: Urine WBC (Auto) 31.0 /HPF (0.0-6.0) H 02/13/21 21: Urine RBC (Auto) 8.0 /HPF (0.0-6.0) 02/13/21 21: U Epithel Cells (Auto) 4.0 /HPF (0-13.0) 02/13/21 21: Urine Bacteria (Auto) 2+ /HPF (Negative) 02/13/21 21: Urine WBC Clumps 3+ /HPF 02/13/21 21:27 Hyaline Casts 5 /LPF 02/13/21 21: Urine Mucus 2+ /HPF 02/13/21 21: Urine Yeast (Budding) 3+ /HPF 02/13/21 21: Urine Creatinine 80.0 mg/dL (0.1-20.0) H 02/14/21 18:45 Urine Sodium 33 mmol/L 02/14/21 18:45 Salicylates < 0.3 mg/dL (2.8-20.0) L 02/13/21 13:28 Urine Opiates Screen Negative 02/13/21 21: Urine Methadone Screen Negative 02/13/21 21: Acetaminophen 5.0 ug/mL (10.0-30.0) L 02/13/21 13:28 Ur Barbiturates Screen Negative 02/13/21 21:27 Ur Phencyclidine Scrn Negative 02/13/21 21:27 Ur Amphetamines Screen Negative 02/13/21 21: U Benzodiazepines Scrn Negative 02/13/21 21:27 Urine Cocaine Screen Negative 02/13/21 21:27 U Marijuana (THC) Screen Negative 02/13/21 21:27 Drugs of Abuse Note Disclamer 02/13/21 21:27 Plasma/Serum Alcohol < 0.01 % (0-0.07) 02/13/21 13:28 Coronavirus (PCR) Positive (Negative) A 02/14/21 Unknown Hepatitis A IgM Ab Non-reactive (NonReactive) 02/17/21 12:59 Hep Bs Antigen Nonreactive (Negative) 02/17/21 12:59 Hep B Core IgM Ab Non-reactive (NonReactive) 02/17/21 12:59 Hepatitis C Antibody Non-reactive (NonReactive) 02/17/21 12:59 Blood Type B POSITIVE 02/13/21 13:31 Antibody Screen Negative 02/13/21 13:31 Cho/IV: Voiding Method Indwelling Catheter Active Medications - Current Medications Current Medications: Generic Name Dose Route Start Last Admin Trade Name Freq PRN Reason Stop Dose Admin Acetaminophen 650 mg 02/13/21 15:22 Acetaminophen 325 Mg Tab PO Q6H PRN Pain, Mild (1-3) Acetaminophen 650 mg 02/13/21 15:22 02/13/21 20:30 Acetaminophen 650 Mg Rect Supp [place] 650 mg Q6H PRN Administration Pain MILD(1-3)/Fever >100.5/ZACARIAS Albumin Human 25 gm 02/17/21 11:14 02/19/21 17:37 Albumin Human 25% (25 Gm/100 Ml) Inj IV 25 gm AFTAB PRN Administration Hypotension Albuterol 2.5 mg 02/13/21 15:22 Albuterol 2.5 Mg/3 Ml Nebu IH Q3H PRN Shortness Of Breath Lipase/Protease/Amylase 1 each 02/14/21 10:43 Lipase 10,500/Protease 25,000/Amylase 43,750 (Units) Dr Iqbal FEEDTUBE PRN PRN For Clogged Feeding Tube Ascorbic Acid 500 mg 02/13/21 22:00 02/20/21 09:13 Ascorbic Acid 500 Mg Tab PO 500 mg BID RUDY Administration Cholecalciferol 1,000 unit 02/13/21 16:00 02/20/21 09:13 Cholecalciferol (Vit D3) 1000 Unit (25 Mcg) Tab PO 1,000 unit QDAY RUDY Administration Dextrose 50 ml 02/14/21 11:15 Dextrose 50% In Water (25gm) 50 Ml Syringe IV Q30MIN PRN Hypoglycemia Protocol Fentanyl 50 mcg 02/13/21 16:05 Fentanyl 100 Mcg/2 Ml Inj IV Q10MIN PRN ANALGESIA Heparin Sodium (Porcine) 4,400 unit 02/14/21 13:18 Heparin 10,000 Units/10 Ml Vial 40 unit/kg (4400 unit) IV Q6H PRN Anti-Xa Assay < 0.1 units/ml Hydrophilic Ointment 1 applic 02/13/21 22:52 Lip Therapy Vaseline TP Q2HR PRN Dry Lips Heparin Sodium/Sodium Chloride 25,000 unit in 500 mls @ 30 mls/hr 02/13/21 17:00 02/17/21 17:15 Heparin/ 0.45% Nacl-25,000 Unit/500 Ml IV Infused TITR RUDY Titration Protocol 1,500 UNITS/HR Fentanyl Citrate 2,000 mcg in 100 mls @ 5.55 mls/hr 02/13/21 17:00 02/20/21 13:43 Fentanyl Drip Premix IV 4 mcg/kg/hr TITR RUDY 22.2 mls/hr Administration Protocol 1 MCG/KG/HR Norepinephrine 4 mg in 250 mls @ 75 mls/hr 02/13/21 18:00 02/20/21 13:00 Levophed Drip 4 Mg/Ns 250 Ml IV 4 mcg/min TITR RUDY 15 mls/hr Titration Protocol 20 MCG/MIN Propofol 1,000 mg in 100 mls @ 3.33 mls/hr 02/13/21 23:00 02/20/21 17:33 Diprivan 10 Mg/Ml IV 50 mcg/kg/min TITR RUDY 33.3 mls/hr Administration Protocol 5 MCG/KG/MIN Midazolam HCl 100 mg/ Sodium 100 mls @ 1 mls/hr 02/14/21 09:00 02/20/21 13:11 Chloride IV 5 mg/hr TITR RUDY 5 mls/hr Administration Protocol 1 MG/HR Dopamine HCl/Dextrose 800 mg in 250 mls @ 4.163 mls/hr 02/14/21 09:00 02/20/21 13:13 Intropin Drip 800 Mg/D5w 250 Ml IV 10 mcg/kg/min TITR RUDY 20.813 mls/hr Administration Protocol 2 MCG/KG/MIN Sodium Chloride 100 mls @ 999 mls/hr 02/17/21 11:14 Nacl 0.9% IV AFTAB PRN Hypotension Insulin Glargine 25 units 02/18/21 22:00 02/19/21 22:01 Insulin Glargine 100 Units/Ml SUB-Q 25 units QHS RUDY Administration Insulin Human Regular 0 units 02/14/21 12:00 02/20/21 17:30 Insulin Regular, Human 100 Units/1 Ml SUB-Q 8 units Q6H RUDY Administration Protocol Methylprednisolone Sodium Succinate 40 mg 02/18/21 06:00 02/20/21 13:40 Methylprednisolone Sod Succinate 40 Mg/1 Ml Inj IV 40 mg Q8H RUDY Administration Midazolam HCl 2 mg 02/14/21 08:24 Midazolam 2 Mg/2 Ml Inj IV Q10MIN PRN Sedation Multi-Ingred Cream/Lotion/Oil/Oint 1 applic 02/13/21 16:05 Mineral Oil/Petrolatum, White Ophth Oint 3.5 Gm OU Q4H PRN Dry Eye(s) Pantoprazole Sodium 40 mg 02/18/21 22:00 02/20/21 09:13 Pantoprazole 40 Mg Inj IV 40 mg BID RUDY Administration Senna/Docusate Sodium 1 tab 02/13/21 22:00 02/20/21 09:13 Sennosides/Docusate Sodium 8.6/50 Mg Tab FEEDTUBE 1 tab BID RUDY Administration Simple Syrup 15 ml 02/14/21 10:43 Simple Syrup 15 Ml FEEDTUBE PRN PRN Hypoglycemia Simple Syrup 30 ml 02/14/21 10:43 Simple Syrup 15 Ml FEEDTUBE PRN PRN Hypoglycemia Sodium Bicarbonate 325 mg 02/14/21 10:43 Sodium Bicarbonate 325 Mg Tab FEEDTUBE PRN PRN For Clogged Feeding Tube Sodium Chloride 10 ml 02/13/21 22:00 02/20/21 09:14 Sodium Chloride 0.9% 10 Ml Flush Syringe IV 10 ml BID RUDY Administration Sodium Chloride 10 ml 02/13/21 15:22 Sodium Chloride 0.9% 10 Ml Flush Syringe IV PRN PRN LINE FLUSH Zinc Sulfate 220 mg 02/13/21 22:00 02/20/21 09:13 Zinc Sulfate 220 Mg Cap PO 220 mg BID RUDY Administration Nutrition/Malnutrition Assess - Dietary Evaluation Nutrition/Malnutrition Findings: Nutrition Notes Start: 02/14/21 10 :34 Freq: Status: Active Protocol: Document 02/18/21 11:53 (Rec: 02/18/21 12:12 [id number]) Nutrition Notes Initial or Follow up Brief Note Current Diagnosis Acute Kidney Injury, Hypertension,Respiratory Failure Other Pertinent Diagnosis SIRS, pneu, COVID PUI Current Diet Nepro 1.8 at 30 ml/hr Labs/Tests BUN 95 Cr 5.4 BG 270 Pertinent Medications Dopamine Propofol at 33.3 ml/hr (879 kcal) Solu Medrol [place] Body Weight (kg) 0 Weight Status Morbidly Obese Subjective/Other Information TF off this AM. Per RN, pt with 250ml gastric residuals. Per ASPEN guidelines, hold TF only if gastric residuals are greater than >250ml. RN to restart TF at 10 ml/hr and recheck for tolerance. Nutrition Intervention Follow-Up By: 02/21/21 Additional Comments F/u: TF at goal, tolerance and propofol rate <CELINA JEFFERSON - Last Filed: 02/21/21 17:39> History Interval history: I saw and evaluated the patient. Discussed with the nurse practitioner and agree with their findings and plan as documented in this note. Hospitalist Physical - Constitutional Vitals: Temp Pulse Resp BP Pulse Ox 99 F 110 H 20 126/62 81 L 02/21/21 16:00 02/21/21 10:50 02/21/21 10:50 02/21/21 10:50 02/21/21 10:50 HEART Score - HEART Score Troponin: Troponin T 0.033 ng/mL (0.00-0.029) H 02/13/21 18:39 Results - Labs CBC & Chem 7: 02/21/21 04:40 02/21/21 04:40 Labs: Laboratory Last Values WBC 27.0 K/mm3 (4.5-11.0) H 02/21/21 04:40 RBC 3.03 M/mm3 (3.65-5.03) L 02/21/21 04:40 Hgb 7.8 gm/dl (10.1-14.3) L 02/21/21 04:40 Hct 24.3 % (30.3-42.9) L 02/21/21 04:40 MCV 80 fl (79-97) 02/21/21 04:40 MCH 26 pg (28-32) L 02/21/21 04:40 MCHC 32 % (30-34) 02/21/21 04:40 RDW 17.0 % (13.2-15.2) H 02/21/21 04:40 Plt Count 281 K/mm3 (140-440) 02/21/21 04:40 Lymph % (Auto) 5.9 % (13.4-35.0) L 02/13/21 13:28 [place] % (Auto) 4.5 % (0.0-7.3) 02/13/21 13:28 Eos % (Auto) 0.0 % (0.0-4.3) 02/13/21 13:28 Baso % (Auto) 0.3 % (0.0-1.8) 02/13/21 13:28 Lymph # (Auto) 0.3 K/mm3 (1.2-5.4) L 02/13/21 13:28 [place] # (Auto) 0.3 K/mm3 (0.0-0.8) 02/13/21 13:28 Eos # (Auto) 0.0 K/mm3 (0.0-0.4) 02/13/21 13:28 Baso # (Auto) 0.0 K/mm3 (0.0-0.1) 02/13/21 13:28 Seg Neutrophils % 89.3 % (40.0-70.0) H 02/13/21 13:28 Seg Neutrophils # 5.2 K/mm3 (1.8-7.7) 02/13/21 13:28 PT 16.9 Sec. (12.2-14.9) H 02/17/21 15:51 INR 1.31 (0.87-1.13) H 02/17/21 15:51 APTT 90.0 Sec. (24.2-36.6) H* 02/17/21 15:51 Fibrinogen 859 mg/dl (211-480) H 02/17/21 15:51 D-Dimer 6346.92 ng/mlDDU (0-234) H 02/20/21 06:10 Heparin Anti-Xa Level < 0.10 U.I./ml (0.3-0.7) L 02/19/21 04:25 ABG pH 7.110 pH Units (7.350-7.450) L* 02/21/21 05:55 POC ABG pCO2 34.3 mmHg (32.0-48.0) 02/19/21 04:00 ABG pCO2 54.2 mm Hg 02/21/21 05:55 POC ABG pO2 59.8 mmHg (83-108) L 02/19/21 04:00 ABG pO2 64.1 mm Hg (80.0-90.0) L 02/21/21 05:55 POC ABG HCO3 21.1 02/19/21 04:00 ABG HCO3 16.8 mmol/L (20.0-26.0) L 02/21/21 05:55 ABG O2 Saturation 80.4 % (95.0-99.0) L 02/21/21 05:55 ABG O2 Content 8.9 (0.0-44) 02/21/21 05:55 POC ABG Base Excess -3.2 02/19/21 04:00 ABG Base Excess -12.0 mmol/L (-2.0-3.0) L 02/21/21 05:55 ABG Hemoglobin 8.1 gm/dl (12.0-16.0) L 02/21/21 05:55 ABG Oxyhemoglobin 88.6 (94-98) L 02/19/21 04:00 ABG Carboxyhemoglobin 2.8 % (0.0-5.0) 02/21/21 05:55 ABG Methemoglobin 0.6 % (0.0-1.5) 02/21/21 05:55 ABG Sodium 136.8 mmol/L (136.0-145.0) 02/19/21 04:00 ABG Potassium 3.7 mmol/L (3.40-4.50) 02/19/21 04:00 ABG Chloride 103.0 mmol/L (98-107) 02/19/21 04:00 ABG Glucose 340 mg/dL (65-95) H 02/19/21 04:00 Oxyhemoglobin 77.7 % (95.0-99.0) L 02/21/21 05:55 Carboxyhemoglobin 0.8 (0.5-1.5) 02/19/21 04:00 FiO2 10 % 02/21/21 05:55 FiO2 % 100.0 02/19/21 04:00 Sodium 134 mmol/L (137-145) L 02/21/21 04:40 Potassium 6.6 mmol/L (3.6-5.0) H* D 02/21/21 04:40 Chloride 93.7 mmol/L (98-107) L 02/21/21 04:40 Carbon Dioxide 18 mmol/L (22-30) L 02/21/21 04:40 Anion Gap 29 mmol/L 02/21/21 04:40 BUN 104 mg/dL (7-17) H 02/21/21 04:40 Creatinine 5.7 mg/dL (0.6-1.2) H 02/21/21 04:40 Estimated GFR 9 ml/min 02/21/21 04:40 BUN/Creatinine Ratio 18 % 02/21/21 04:40 Glucose 337 mg/dL (65-100) H 02/21/21 04:40 POC Glucose 196 mg/dL (70-105) H 02/21/21 17:12 Lactic Acid 1.90 mmol/L (0.7-2.0) 02/14/21 22:33 Calcium 7.2 mg/dL (8.4-10.2) L 02/21/21 04:40 Phosphorus 10.60 mg/dL (2.5-4.5) H 02/21/21 04:40 Magnesium 2.70 mg/dL (1.7-2.3) H 02/21/21 04:40 Iron 42 ug/dL (37-170) 02/17/21 12:59 TIBC 231 mcg/dL (250-450) L 02/17/21 12:59 % Saturation 18.18 % 02/17/21 12:59 Transferrin 193 mg/dl (192-382) 02/17/21 12:59 Ferritin 1213.0 ng/mL (10.0-200.0) H 02/20/21 06:10 Total Bilirubin 0.60 mg/dL (0.1-1.2) 02/19/21 04:25 Direct Bilirubin < 0.2 mg/dL (0-0.2) 02/13/21 13:28 Indirect Bilirubin 0.2 mg/dL 02/13/21 13:28 AST 31 units/L (5-40) 02/19/21 04:25 ALT 20 units/L (7-56) 02/19/21 04:25 Alkaline Phosphatase 84 units/L (35-129) 02/19/21 04:25 Ammonia 48.0 umol/L (25-60) 02/13/21 13:28 Lactate Dehydrogenase 724 units/L (91-180) H 02/20/21 06:10 Total Creatine Kinase 1572 units/L (30-135) H 02/13/21 13:28 Troponin T 0.033 ng/mL (0.00-0.029) H 02/13/21 18:39 C-Reactive Protein 13.60 mg/dL (0.00-1.30) H 02/20/21 06:10 NT-Pro-B Natriuret Pep 3473 pg/mL (0-900) H 02/13/21 13:36 Total Protein 7.3 g/dL (6.3-8.2) 02/19/21 04:25 Albumin 3.8 g/dL (3.9-5) L 02/19/21 04:25 Albumin/Globulin Ratio 1.1 % 02/19/21 04:25 Triglycerides 687 mg/dL (2-149) H 02/21/21 10:41 Cholesterol 130 mg/dL (50-199) 02/13/21 16:27 LDL Cholesterol Direct 68 mg/dL (50-130) 02/13/21 16:27 HDL Cholesterol 40 mg/dL (40-59) 02/13/21 16:27 Cholesterol/HDL Ratio 3.25 % 02/13/21 16:27 Lipase 35 units/L (13-60) 02/13/21 13:28 Procalcitonin 58.83 ng/mL (<0.15) 02/14/21 10:40 TSH 8.530 mlU/mL (0.270-4.200) H 02/13/21 13:28 Free T3 Index 0.8 pg/mL (2.3-4.2) L 02/16/21 04:30 Arterial Blood Glucose 340 mg/dL (65-95) H 02/19/21 04:00 Arterial Blood Ionized Calcium 3.8 mg/dL (4.6-5.3) L 02/19/21 04:00 Urine Color Laura (Yellow) 02/13/21 21: Urine Turbidity Turbid (Clear) 02/13/21 21: Urine pH 5.0 (5.0-7.0) 02/13/21 21: Ur Specific [place] 1.025 (1.003-1.030) 02/13/21 21:27 Urine Protein >500 mg/dL (Negative) 02/13/21 21: Urine Glucose (UA) Neg mg/dL (Negative) 02/13/21 21: Urine Ketones Neg mg/dL (Negative) 02/13/21 21: Urine Blood Lg (Negative) 02/13/21 21: Urine Nitrite Neg (Negative) 02/13/21 21: Urine Bilirubin Neg (Negative) 02/13/21 21: Urine Urobilinogen < 2.0 mg/dL (<2.0) 02/13/21 21:27 Ur Leukocyte Esterase Neg (Negative) 02/13/21 21:27 Urine WBC (Auto) 31.0 /HPF (0.0-6.0) H 02/13/21 21: Urine RBC (Auto) 8.0 /HPF (0.0-6.0) 02/13/21 21: U Epithel Cells (Auto) 4.0 /HPF (0-13.0) 02/13/21 21: Urine Bacteria (Auto) 2+ /HPF (Negative) 02/13/21 21:27 Urine WBC Clumps 3+ /HPF 02/13/21 21:27 Hyaline Casts 5 /LPF 02/13/21 21: Urine Mucus 2+ /HPF 02/13/21 21:27 Urine Yeast (Budding) 3+ /HPF 02/13/21 21: Urine Creatinine 80.0 mg/dL (0.1-20.0) H 02/14/21 18:45 Urine Sodium 33 mmol/L 02/14/21 18:45 Salicylates < 0.3 mg/dL (2.8-20.0) L 02/13/21 13:28 Urine Opiates Screen Negative 02/13/21 21:27 Urine Methadone Screen Negative 02/13/21 21: Acetaminophen 5.0 ug/mL (10.0-30.0) L 02/13/21 13:28 Ur Barbiturates Screen Negative 02/13/21 21:27 Ur Phencyclidine Scrn Negative 02/13/21 21:27 Ur Amphetamines Screen Negative 02/13/21 21:27 U Benzodiazepines Scrn Negative 02/13/21 21:27 Urine Cocaine Screen Negative 02/13/21 21:27 U Marijuana (THC) Screen Negative 02/13/21 21:27 Drugs of Abuse Note Disclamer 02/13/21 21:27 Plasma/Serum Alcohol < 0.01 % (0-0.07) 02/13/21 13:28 Coronavirus (PCR) Positive (Negative) A 02/14/21 Unknown Hepatitis A IgM Ab Non-reactive (NonReactive) 02/17/21 12:59 Hep Bs Antigen Nonreactive (Negative) 02/17/21 12:59 Hep B Core IgM Ab Non-reactive (NonReactive) 02/17/21 12:59 Hepatitis C Antibody Non-reactive (NonReactive) 02/17/21 12:59 Blood Type B POSITIVE 02/13/21 13:31 Antibody Screen Negative 02/13/21 13:31 Cho/IV: Voiding Method Indwelling Catheter Active Medications - Current Medications Current Medications: Generic Name Dose Route Start Last Admin Trade Name Freq PRN Reason Stop Dose Admin Acetaminophen 650 mg 02/13/21 15:22 Acetaminophen 325 Mg Tab PO Q6H PRN Pain, Mild (1-3) Acetaminophen 650 mg 02/13/21 15:22 02/13/21 20:30 Acetaminophen 650 Mg Rect Supp TN 650 mg Q6H PRN Administration Pain MILD(1-3)/Fever >100.5/ZACARIAS Albumin Human 25 gm 02/21/21 08:04 Albumin Human 25% (25 Gm/100 Ml) Inj IV AFTAB PRN Hypotension Albuterol 2.5 mg 02/13/21 15:22 Albuterol 2.5 Mg/3 Ml Nebu IH Q3H PRN Shortness Of Breath Lipase/Protease/Amylase 1 each 02/14/21 10:43 Lipase 10,500/Protease 25,000/Amylase 43,750 (Units) Cap FEEDTUBE PRN PRN For Clogged Feeding Tube Ascorbic Acid 500 mg 02/13/21 22:00 02/20/21 21:20 Ascorbic Acid 500 Mg Tab PO 500 mg BID RUDY Administration Cholecalciferol 1,000 unit 02/13/21 16:00 02/21/21 09:55 Cholecalciferol (Vit D3) 1000 Unit (25 Mcg) Tab PO 1,000 unit QDAY RUDY Administration Dextrose 50 ml 02/14/21 11:15 Dextrose 50% In Water (25gm) 50 Ml Syringe IV Q30MIN PRN Hypoglycemia Protocol Fentanyl 50 mcg 02/13/21 16:05 Fentanyl 100 Mcg/2 Ml Inj IV Q10MIN PRN ANALGESIA Hydrophilic Ointment 1 applic 02/13/21 22:52 Lip Therapy Vaseline TP Q2HR PRN Dry Lips Fentanyl Citrate 2,000 mcg in 100 mls @ 5.55 mls/hr 02/13/21 17:00 02/21/21 14:01 Fentanyl Drip Premix IV 4 mcg/kg/hr TITR RUDY 22.2 mls/hr Administration Protocol 1 MCG/KG/HR Norepinephrine 4 mg in 250 mls @ 75 mls/hr 02/13/21 18:00 02/21/21 17:33 Levophed Drip 4 Mg/Ns 250 Ml IV 12 mcg/min TITR RUDY 45 mls/hr Administration Protocol 20 MCG/MIN Midazolam HCl 100 mg/ Sodium 100 mls @ 1 mls/hr 02/14/21 09:00 02/21/21 08:43 Chloride IV 4 mg/hr TITR RUDY 4 mls/hr Administration Protocol 1 MG/HR Dopamine HCl/Dextrose 800 mg in 250 mls @ 4.163 mls/hr 02/14/21 09:00 02/21/21 14:05 Intropin Drip 800 Mg/D5w 250 Ml IV 10 mcg/kg/min TITR RUDY 20.813 mls/hr Administration Protocol 2 MCG/KG/MIN Sodium Chloride 100 mls @ 999 mls/hr 02/21/21 08:03 Nacl 0.9% IV AFTAB PRN Hypotension Vasopressin 20 unit/ Sodium 101 mls @ 9.09 mls/hr 02/21/21 13:00 Chloride IV TITR RUDY Protocol 0.03 UNITS/MIN Insulin Glargine 30 units 02/21/21 22:00 Insulin Glargine 100 Units/Ml SUB-Q QHS RUDY Insulin Human Regular 0 units 02/14/21 12:00 02/21/21 14:03 Insulin Regular, Human 100 Units/1 Ml SUB-Q 3 units Q6H [facility] Administration Protocol Methylprednisolone Sodium Succinate 40 mg 02/18/21 06:00 08/30/21 14:03 Methylprednisolone Sod Succinate 40 Mg/1 Ml Inj IV 40 mg Q8H RUDY Administration Metoclopramide HCl 5 mg 02/21/21 13:00 02/21/21 14:01 Metoclopramide 10 Mg/2 Ml Inj IV 5 mg Q6HR RUDY Administration Midazolam HCl 2 mg 02/14/21 08:24 Midazolam 2 Mg/2 Ml Inj IV Q10MIN PRN Sedation Multi-Ingred Cream/Lotion/Oil/Oint 1 applic 02/13/21 16:05 Mineral Oil/Petrolatum, White Ophth Oint 3.5 Gm OU Q4H PRN Dry Eye(s) Pantoprazole Sodium 40 mg 02/18/21 22:00 02/21/21 09:55 Pantoprazole 40 Mg Inj IV 40 mg BID RUDY Administration Senna/Docusate Sodium 1 tab 02/13/21 22:00 02/21/21 09:55 Sennosides/Docusate Sodium 8.6/50 Mg Tab FEEDTUBE 1 tab BID RUDY Administration Simple Syrup 15 ml 02/14/21 10:43 Simple Syrup 15 Ml FEEDTUBE PRN PRN Hypoglycemia Simple Syrup 30 ml 02/14/21 10:43 Simple Syrup 15 Ml FEEDTUBE PRN PRN Hypoglycemia Sodium Bicarbonate 325 mg 02/14/21 10:43 Sodium Bicarbonate 325 Mg Tab FEEDTUBE PRN PRN For Clogged Feeding Tube Sodium Chloride 10 ml 02/13/21 22:00 02/21/21 09:55 Sodium Chloride 0.9% 10 Ml Flush Syringe IV 10 ml BID RUDY Administration Sodium Chloride 10 ml 02/13/21 15:22 Sodium Chloride 0.9% 10 Ml Flush Syringe IV PRN PRN LINE FLUSH Zinc Sulfate 220 mg 02/13/21 22:00 02/21/21 09:55 Zinc Sulfate 220 Mg Cap PO 220 mg BID RUDY Administration Nutrition/Malnutrition Assess - Dietary Evaluation Nutrition/Malnutrition Findings: Nutrition Notes Start: 02/14/21 10:34 Freq: Status: Active Protocol: Document 02/21/21 11:53 MK (Rec: 02/21/21 11:56 MK [id number]) Nutrition Notes Initial or Follow up Brief Note Current Diagnosis Acute Kidney Injury, Hypertension,Respiratory Failure Other Pertinent Diagnosis SIRS, pneu, COVID Current Diet Nepro 1.8 at 30 ml/hr Subjective/Other Information Pt was running at 10 ml/hr. Per RN, gastric residuals > 700ml/hr and TF stopped. Recommend Reglan. Nutrition Intervention Follow-Up By: 02/23/21 Additional Comments F/u: TF at goal, tolerance and propofol rate
[2021-02-20] MEDS: INSULIN GLARGINE 100 UNITS/ML SUB-Q SCH (21:20)
[2021-02-21] MEDS: DOPamine/D5W 800 MG/250 ML 800 MG/250 ML BAG IV SCH ×2 (01:20→14:05)
[2021-02-21] MEDS: fentaNYL DRIP Premix 2,000 MCG/100 ML BAG IV SCH ×5 (01:21→19:04)
[2021-02-21] MEDS: NORepinephrine/NS 4 MG-250 ML 4 MG/250 ML BAG IV SCH ×4 (01:38→20:12)
--- NOTE | 2021-02-21 03:55 | XRay Report ---
CHEST 1 VIEW 02/21/2021 2:37 AM INDICATION / CLINICAL INFORMATION: HYPOCXIA. COMPARISON: Previous day. FINDINGS: SUPPORT DEVICES: Unchanged. Resolution of right pneumothorax. HEART / MEDIASTINUM: No significant abnormality. LUNGS / PLEURA: Persistent diffuse bilateral opacity with mild worsening. Subcutaneous air is increas ed.. Persistent basilar effusion/volume loss. ADDITIONAL FINDINGS: No significant additional findings. IMPRESSION: 1. Mild worsening of the lungs. 2. Resolution of pneumothorax. 3. Increasing subcutaneous air. Signer Name: Carlos Mir MD Signed: 02/21/2021 3:50 AM Workstation Name: [id number]
[2021-02-21 05:43] LABS: Hematocrit 24.3 % (30.3-42.9); Hemoglobin 7.8 gm/dl (10.1-14.3); Mean Corpuscular HGB Conc 32 % (30-34); Mean Corpuscular Volume 80 fl (79-97); Platelet Count 281 K/mm3 (140-440); Red Blood Count 3.03 M/mm3 (3.65-5.03)
[2021-02-21 06:02] LABS: Calcium 7.2 mg/dL (8.4-10.2)
[2021-02-21] MEDS: methylPREDNISolone Sod Succinate 40 MG/1 ML INJ IV SCH ×2 (06:07→14:03)
[2021-02-21] MEDS: INSULIN REGULAR, HUMAN 100 UNITS/1 ML SUB-Q SCH ×4 (06:07→18:55)
[2021-02-21 07:13] LABS: ABG HCO3 16.8 mmol/L (20.0-26.0); ABG Methemoglobin 0.6 % (0.0-1.5); ABG Oxygen Saturation 80.4 % (95.0-99.0); ABG PCO2 54.2 mm Hg; ABG PO2 64.1 mm Hg (80.0-90.0)
[2021-02-21 07:18] LABS: ABG PH 7.11 pH Units (7.350-7.450)
[2021-02-21] MEDS ORDERED: SODIUM CHLORIDE 0.9% 100 ML IV PRN (08:03)
[2021-02-21] MEDS ORDERED: ALBUMIN HUMAN 25% (25 GM/100 ML) INJ IV PRN (08:04)
[2021-02-21] MEDS: MIDAZOLAM 100 MG in SODIUM CHLORIDE 0.9% 80 ML IV SCH (08:43)
[2021-02-21] MEDS ORDERED: INSULIN LISPRO 100 UNIT/ML SUB-Q ONE (09:00)
[2021-02-21] MEDS ORDERED: SODIUM POLYSTYRENE 15 GM/60 ML ORAL LIQD PO ONE (09:00)
[2021-02-21] MEDS ORDERED: SODIUM BICARB 8.4% 50 MEQ/50 ML SYRINGE IV ONE ×2 (09:00→17:49)
[2021-02-21] MEDS: CHOLECALCIFEROL (VIT D3) 1000 UNIT (25 mcg) TAB PO SCH (09:55)
[2021-02-21] MEDS: ZINC SULFATE 220 MG CAP PO SCH (09:55)
[2021-02-21] MEDS: PANTOPRAZOLE 40 MG INJ IV SCH (09:55)
[2021-02-21] MEDS: SENNOSIDES/DOCUSATE SODIUM 8.6/50 MG TAB FEEDTUBE SCH (09:55)
[2021-02-21] MEDS: ASCORBIC ACID 500 MG TAB PO SCH (09:55)
[2021-02-21] MEDS ORDERED: DEXTROSE 50% IN WATER (25GM) 50 ML SYRINGE IV ONE (13:00)
[2021-02-21] MEDS ORDERED: INSULIN REGULAR, HUMAN 100 UNITS/1 ML IV ONE (13:00)
--- NOTE | 2021-02-21 13:43 | Progress Note ---
<TEGANFERNANDAELKIN Pearl - Last Filed: 02/21/21 15:02> Assessment and Plan Assessment and plan: 70 YO Female with Obesity Hypoventilation Syndrome, HTN, Hypothyroidism admitted with COVID-19 pneumonia, sepsis, acute respiratory failure A/P NEURO: metabolic encephalopathy; sedated -RASS goal neg 2-3 -avoid Delirium -Sedated with fentanyl, propofol, Versed will d/c prop given triglycerides 687 -SAT daily as allowed with oxygenation -NOK daugther and two sons -family visiting with pt yesterday -remains full code CV- hypotension due to sepsis/sedation; bradycardia in part due to hypoxia; hx HTN -MAP > 65 -SB-SR -Dopamine drip for SB, goal HR > 55-60/min -Vasopressor/ norepinephrine, wean as tolerated -Blood pressure monitor per protocol Resp- ARDS; acute hypoxic resp failure due to covid19 pna; hx hypoventilation syndrome -Intubated 02-13 with 7.5 ett at 22 at the lips -Mechanical vent- see RT notes for changes -AM vent settings: AC/PCV: Rate 28, PEEP 22, 100 FiO2 decreasing peep today see RT notes sat goal 80 -trend ABG and chest xray -Right chest tube to wall suction -SPO2 monitoring -sat goal 80 per critical care -VAP bundle GI: risk protein cynthia malnutrition, GIB- resolved -TF -Nutrition following -guaic positive -GI consulted, appreciate recommendations -PPI iv bid -added reglan today for residuals have been high - SONIA/ ATN -nephrology following -HD initated 02/16 -HD per nephrology -HD aborted today after 1 hours- bp was soft in future to get clearance we can use pressors to support map K over 6 today treated medically by [facility] with SQ hep this AM- so repeat treatment today and 1800 BMP -Trend BMP -strict I/O -daily weight Heme- a/c anemia; coagulopathic with covid; remote GIB -VTE heparin gtt d/c d/t GI bleeding reevaluate daily -SCDs to bilateral lower extremities while in bed -trend CBC and coags -no further bloody stools -on darbo ID- covid19 pna with resulting sepsis -covid pos 02/14 -ID following -s/p azithro and ceftriaxone -Patient was not given remdesivir given SONIA -Patient is not a candidate for Actemra given procalcitonin per ID -Methylprednisone -Trend COVID-19 inflammatory markers -Droplet/precautions -Anticoagulation per protocol as tolerated -Follow culture data Endo -hx DM with hyperglycemia; morbid obesity; hx hypothyrodism -Lantus nightly, titrate as needed -SSI -Avoid hypoglycemia -Restarted home levothyroxine -Accu-Cheks every 6 The high probability of a clinically significant, sudden or life threatening deterioration of the all] system(s) required my full and direct attention, intervention and personal management. The aggregate critical care time was [60] minutes. This time is in addition to time spent performing reported procedures but includes the following: [x] Data Review and interpretation [x] Patient assessment and monitoring of vital signs [x] Documentation [x] Medication orders and management Disposition Plan: icu Total Time Spent with Patient (Minutes): 60 History Interval history: 70 YO Female with Obesity Hypoventilation Syndrome, HTN, Hypothyroidism presents to ED for evaluation. Patient is intubated and on ventilatory support at the time my evaluation is unable to write history. Patient history provided by EMS staff, ED staff, as well as the patient family was made available by telephone for interview. As per daughter the patient was in her usual state of health around bedtime which was 2100 hrs. The patient was found down and unresponsive this morning. EMS was notified and upon arrival the patient was found to be in respiratory distress with a pulse oximetry of 50%. The patient was transported to [facility] for further care and evaluation of the aforementioned symptoms. The patient was seen and evaluated in the emergency department. All lab and imaging studies reviewed. The patient was found to have a pulse oximetry in the 60s which is consistent with acute hypoxemic respiratory failure. The patient was deemed unable to protect her airway and was intubated and placed on ventilatory support. The patient was found to have a blood pressure of 69/33. The patient was also found to have pneumonia on chest x-ray which was complicated by septic shock, metabolic acidosis, toxic metabolic encephalopathy, acute kidney injury. Patient admitted to ICU due to multiple organ system failure. Critical care care team consulted in ED. Patient initia carine on sepsis protocol as well as coronavirus protocol. Patient found to have poor prognosis. Advanced care planning conducted in ED. No prior admission for review. No medication listed at time of admission for reconciliation. 02-13 Admitted through ER 02-14 proned; when supined this AM became hypoxic- took some time to recover 02/15 desaturated when supined this AM- now recovered 02/16: Saturation issues->increased sedation which resolved it today, Nephro to initiate HD in 24-48 hours, trialysis placed. 02/[address] for pneumo placed 02/18: Patient had a coughing fit and desaturated and zina to 30s overnight. 02/19: GI signed off todAY. Patient desaturated mid morning and peep was increased to 20 and slowly recovered to 70s. Dr Jefferson informed daughter of events who still wishes for her mother to be a full code. 02/20: remains with spo2 in the [address] Vasquez had a discussion face to face with kids and allowed window visit to discuss goals of care. 02-21 hyperK this AM; elevated triglyerides- prop to wean off; did not tolerate HD today due to hypotension Disposition Plan: icu Total Time Spent with Patient (Minutes): 60 History Interval history: no acute events overnight Hospitalist Physical - Constitutional Vitals: Temp Pulse Resp BP Pulse Ox 98.5 F 110 H 28 H 126/62 81 L 02/21/21 09:15 02/21/21 10:50 02/21/21 09:15 02/21/21 10:50 02/21/21 10:50 General appearance: Present: severe distress, well-nourished, obese - EENT Eyes: Present: PERRL ENT: clear oral mucosa - Neck Neck: Present: supple - Respiratory Respiratory effort: normal - Cardiovascular Rhythm: regular Heart Sounds: Present: S1 & S2 - Abdominal General gastrointestinal: soft - Integumentary Integumentary: Present: clear, warm, dry - Psychiatric Psychiatric: other - Neurologic Neurologic: other - Allied Health Allied health notes reviewed: nursing, RT, social work, case management HEART Score - HEART Score Troponin: Troponin T 0.033 ng/mL (0.00-0.029) H 02/13/21 18:39 Results - Labs CBC & Chem 7: 02/21/21 04:40 02/21/21 04:40 Labs: Laboratory Last Values WBC 27.0 K/mm3 (4.5-11.0) H 02/21/21 04:40 RBC 3.03 M/mm3 (3.65-5.03) L 02/21/21 04:40 Hgb 7.8 gm/dl (10.1-14.3) L 02/21/21 04:40 Hct 24.3 % (30.3-42.9) L 02/21/21 04:40 MCV 80 fl (79-97) 02/21/21 04:40 MCH 26 pg (28-32) L 02/21/21 04:40 MCHC 32 % (30-34) 02/21/21 04:40 RDW 17.0 % (13.2-15.2) H 02/21/21 04:40 Plt Count 281 K/mm3 (140-440) 02/21/21 04:40 Lymph % (Auto) 5.9 % (13.4-35.0) L 02/13/21 13:28 [place] % (Auto) 4.5 % (0.0-7.3) 02/13/21 13:28 Eos % (Auto) 0.0 % (0.0-4.3) 02/13/21 13:28 Baso % (Auto) 0.3 % (0.0-1.8) 02/13/21 13:28 Lymph # (Auto) 0.3 K/mm3 (1.2-5.4) L 02/13/21 13:28 [place] # (Auto) 0.3 K/mm3 (0.0-0.8) 02/13/21 13:28 Eos # (Auto) 0.0 K/mm3 (0.0-0.4) 02/13/21 13:28 Baso # (Auto) 0.0 K/mm3 (0.0-0.1) 02/13/21 13:28 Seg Neutrophils % 89.3 % (40.0-70.0) H 02/13/21 13:28 Seg Neutrophils # 5.2 K/mm3 (1.8-7.7) 02/13/21 13:28 PT 16.9 Sec. (12.2-14.9) H 02/17/21 15:51 INR 1.31 (0.87-1.13) H 02/17/21 15:51 APTT 90.0 Sec. (24.2-36.6) H* 02/17/21 15:51 Fibrinogen 859 mg/dl (211-480) H 02/17/21 15:51 D-Dimer 6346.92 ng/mlDDU (0-234) H 02/20/21 06:10 Heparin Anti-Xa Level < 0.10 U.I./ml (0.3-0.7) L 02/19/21 04:25 ABG pH 7.110 pH Units (7.350-7.450) L* 02/21/21 05:55 POC ABG pCO2 34.3 mmHg (32.0-48.0) 02/19/21 04:00 ABG pCO2 54.2 mm Hg 02/21/21 05:55 POC ABG pO2 59.8 mmHg (83-108) L 02/19/21 04:00 ABG pO2 64.1 mm Hg (80.0-90.0) L 02/21/21 05:55 POC ABG HCO3 21.1 02/19/21 04:00 ABG HCO3 16.8 mmol/L (20.0-26.0) L 02/21/21 05:55 ABG O2 Saturation 80.4 % (95.0-99.0) L 02/21/21 05:55 ABG O2 Content 8.9 (0.0-44) 02/21/21 05:55 POC ABG Base Excess -3.2 02/19/21 04:00 ABG Base Excess -12.0 mmol/L (-2.0-3.0) L 02/21/21 05:55 ABG Hemoglobin 8.1 gm/dl (12.0-16.0) L 02/21/21 05:55 ABG Oxyhemoglobin 88.6 (94-98) L 02/19/21 04:00 ABG Carboxyhemoglobin 2.8 % (0.0-5.0) 02/21/21 05:55 ABG Methemoglobin 0.6 % (0.0-1.5) 02/21/21 05:55 ABG Sodium 136.8 mmol/L (136.0-145.0) 02/19/21 04:00 ABG Potassium 3.7 mmol/L (3.40-4.50) 02/19/21 04:00 ABG Chloride 103.0 mmol/L (98-107) 02/19/21 04:00 ABG Glucose 340 mg/dL (65-95) H 02/19/21 04:00 Oxyhemoglobin 77.7 % (95.0-99.0) L 02/21/21 05:55 Carboxyhemoglobin 0.8 (0.5-1.5) 02/19/21 04:00 FiO2 10 % 02/21/21 05:55 FiO2 % 100.0 02/19/21 04:00 Sodium 134 mmol/L (137-145) L 02/21/21 04:40 Potassium 6.6 mmol/L (3.6-5.0) H* D 02/21/21 04:40 Chloride 93.7 mmol/L (98-107) L 02/21/21 04:40 Carbon Dioxide 18 mmol/L (22-30) L 02/21/21 04:40 Anion Gap 29 mmol/L 02/21/21 04:40 BUN 104 mg/dL (7-17) H 02/21/21 04:40 Creatinine 5.7 mg/dL (0.6-1.2) H 02/21/21 04:40 Estimated GFR 9 ml/min 02/21/21 04:40 BUN/Creatinine Ratio 18 % 02/21/21 04:40 Glucose 337 mg/dL (65-100) H 02/21/21 04:40 POC Glucose 221 mg/dL (70-105) H 02/21/21 12:42 Lactic Acid 1.90 mmol/L (0.7-2.0) 02/14/21 22:33 Calcium 7.2 mg/dL (8.4-10.2) L 02/21/21 04:40 Phosphorus 10.60 mg/dL (2.5-4.5) H 02/21/21 04:40 Magnesium 2.70 mg/dL (1.7-2.3) H 02/21/21 04:40 Iron 42 ug/dL (37-170) 02/17/21 12:59 TIBC 231 mcg/dL (250-450) L 02/17/21 12:59 % Saturation 18.18 % 02/17/21 12:59 Transferrin 193 mg/dl (192-382) 02/17/21 12:59 Ferritin 1213.0 ng/mL (10.0-200.0) H 02/20/21 06:10 Total Bilirubin 0.60 mg/dL (0.1-1.2) 02/19/21 04:25 Direct Bilirubin < 0.2 mg/dL (0-0.2) 02/13/21 13:28 Indirect Bilirubin 0.2 mg/dL 02/13/21 13:28 AST 31 units/L (5-40) 02/19/21 04:25 ALT 20 units/L (7-56) 02/19/21 04:25 Alkaline Phosphatase 84 units/L (35-129) 02/19/21 04:25 Ammonia 48.0 umol/L (25-60) 02/13/21 13:28 Lactate Dehydrogenase 724 units/L (91-180) H 02/20/21 06:10 Total Creatine Kinase 1572 units/L (30-135) H 02/13/21 13:28 Troponin T 0.033 ng/mL (0.00-0.029) H 02/13/21 18:39 C-Reactive Protein 13.60 mg/dL (0.00-1.30) H 02/20/21 06:10 NT-Pro-B Natriuret Pep 3473 pg/mL (0-900) H 02/13/21 13:36 Total Protein 7.3 g/dL (6.3-8.2) 02/19/21 04:25 Albumin 3.8 g/dL (3.9-5) L 02/19/21 04:25 Albumin/Globulin Ratio 1.1 % 02/19/21 04:25 Triglycerides 687 mg/dL (2-149) H 02/21/21 10:41 Cholesterol 130 mg/dL (50-199) 02/13/21 16:27 LDL Cholesterol Direct 68 mg/dL (50-130) 02/13/21 16:27 HDL Cholesterol 40 mg/dL (40-59) 02/13/21 16:27 Cholesterol/HDL Ratio 3.25 % 02/13/21 16:27 Lipase 35 units/L (13-60) 02/13/21 13:28 Procalcitonin 58.83 ng/mL (<0.15) 02/14/21 10:40 TSH 8.530 mlU/mL (0.270-4.200) H 02/13/21 13:28 Free T3 Index 0.8 pg/mL (2.3-4.2) L 02/16/21 04:30 Arterial Blood Glucose 340 mg/dL (65-95) H 02/19/21 04:00 Arterial Blood Ionized Calcium 3.8 mg/dL (4.6-5.3) L 02/19/21 04:00 Urine Color Laura (Yellow) 02/13/21 21: Urine Turbidity Turbid (Clear) 02/13/21 21: Urine pH 5.0 (5.0-7.0) 02/13/21 21: Ur Specific [place] 1.025 (1.003-1.030) 02/13/21 21: Urine Protein >500 mg/dL (Negative) 02/13/21: Urine Glucose (UA) Neg mg/dL (Negative) 02/13/21 21: Urine Ketones Neg mg/dL (Negative) 02/13/21 21: Urine Blood Lg (Negative) 02/13/21 21: Urine Nitrite Neg (Negative) 02/13/21 21: Urine Bilirubin Neg (Negative) 02/13/21 21: Urine Urobilinogen < 2.0 mg/dL (<2.0) 02/13/21 21: Ur Leukocyte Esterase Neg (Negative) 02/13/21 21: Urine WBC (Auto) 31.0 /HPF (0.0-6.0) H 02/13/21 21: Urine RBC (Auto) 8.0 /HPF (0.0-6.0) 02/13/21: U Epithel Cells (Auto) 4.0 /HPF (0-13.0) 02/13/21 21: Urine Bacteria (Auto) 2+ /HPF (Negative) 02/13/21 21: Urine WBC Clumps 3+ /HPF 02/13/21 21: Hyaline Casts 5 /LPF 02/13/21 21: Urine Mucus 2+ /HPF 02/13/21 21: Urine Yeast (Budding) 3+ /HPF 02/13/21 21: Urine Creatinine 80.0 mg/dL (0.1-20.0) H 02/14/21 18:45 Urine Sodium 33 mmol/L 02/14/21 18:45 Salicylates < 0.3 mg/dL (2.8-20.0) L 02/13/21 13:28 Urine Opiates Screen Negative 02/13/21 21:27 Urine Methadone Screen Negative 02/13/21 21:27 Acetaminophen 5.0 ug/mL (10.0-30.0) L 02/13/21 13:28 Ur Barbiturates Screen Negative 02/13/21 21:27 Ur Phencyclidine Scrn Negative 02/13/21 21:27 Ur Amphetamines Screen Negative 02/13/21 21:27 U Benzodiazepines Scrn Negative 02/13/21 21:27 Urine Cocaine Screen Negative 02/13/21 21:27 U Marijuana (THC) Screen Negative 02/13/21 21:27 Drugs of Abuse Note Disclamer 02/13/21 21:27 Plasma/Serum Alcohol < 0.01 % (0-0.07) 02/13/21 13:28 Coronavirus (PCR) Positive (Negative) A 02/14/21 Unknown Hepatitis A IgM Ab Non-reactive (NonReactive) 02/17/21 12:59 Hep Bs Antigen Nonreactive (Negative) 02/17/21 12:59 Hep B Core IgM Ab Non-reactive (NonReactive) 02/17/21 12:59 Hepatitis C Antibody Non-reactive (NonReactive) 02/17/21 12:59 Blood Type B POSITIVE 02/13/21 13:31 Antibody Screen Negative 02/13/21 13:31 Cho/IV: Voiding Method Indwelling Catheter Active Medications - Current Medications Current Medications: Generic Name Dose Route Start Last Admin Trade Name Freq PRN Reason Stop Dose Admin Acetaminophen 650 mg 02/13/21 15:22 Acetaminophen 325 Mg Tab PO Q6H PRN Pain, Mild (1-3) Acetaminophen 650 mg 02/13/21 15:22 02/13/21 20:30 Acetaminophen 650 Mg Rect Supp MT 650 mg Q6H PRN Administration Pain MILD(1-3)/Fever >100.5/ZACARIAS Albumin Human 25 gm 02/21/21 08:04 Albumin Human 25% (25 Gm/100 Ml) Inj IV AFTAB PRN Hypotension Albuterol 2.5 mg 02/13/21 15:22 Albuterol 2.5 Mg/3 Ml Nebu IH Q3H PRN Shortness Of Breath Lipase/Protease/Amylase 1 each 02/14/21 10:43 Lipase 10,500/Protease 25,000/Amylase 43,750 (Units) Dr Cap FEEDTUBE PRN PRN For Clogged Feeding Tube Ascorbic Acid 500 mg 02/13/21 22:00 02/20/21 21:20 Ascorbic Acid 500 Mg Tab PO 500 mg BID RUDY Administration Cholecalciferol 1,000 unit 02/13/21 16:00 02/21/21 09:55 Cholecalciferol (Vit D3) 1000 Unit (25 Mcg) Tab PO 1,000 unit QDAY RUDY Administration Dextrose 50 ml 02/14/21 11:15 Dextrose 50% In Water (25gm) 50 Ml Syringe IV Q30MIN PRN Hypoglycemia Protocol Fentanyl 50 mcg 02/13/21 16:05 Fentanyl 100 Mcg/2 Ml Inj IV Q10MIN PRN ANALGESIA Heparin Sodium (Porcine) 4,400 unit 02/14/21 13:18 Heparin 10,000 Units/10 Ml Vial 40 unit/kg (4400 unit) IV Q6H PRN Anti-Xa Assay < 0.1 units/ml Hydrophilic Ointment 1 applic 02/13/21 22:52 Lip Therapy Vaseline TP Q2HR PRN Dry Lips Heparin Sodium/Sodium Chloride 25,000 unit in 500 mls @ 30 mls/hr 02/13/21 17:00 02/17/21 17:15 Heparin/ 0.45% Nacl-25,000 Unit/500 Ml IV Infused TITR RUDY Titration Protocol 1,500 UNITS/HR Fentanyl Citrate 2,000 mcg in 100 mls @ 5.55 mls/hr 02/13/21 17:00 02/21/21 10:26 Fentanyl Drip Premix IV 4 mcg/kg/hr TITR RUDY 22.2 mls/hr Administration Protocol 1 MCG/KG/HR Norepinephrine 4 mg in 250 mls @ 75 mls/hr 02/13/21 18:00 02/21/21 06:14 Levophed Drip 4 Mg/Ns 250 Ml IV 12 mcg/min TITR RUDY 45 mls/hr Titration Protocol 20 MCG/MIN Propofol 1,000 mg in 100 mls @ 3.33 mls/hr 02/13/21 23:00 02/21/21 11:34 Diprivan 10 Mg/Ml IV 45 mcg/kg/min TITR RUDY 29.97 mls/hr Administration Protocol 5 MCG/KG/MIN Midazolam HCl 100 mg/ Sodium 100 mls @ 1 mls/hr 02/14/21 09:00 02/21/21 08:43 Chloride IV 4 mg/hr TITR RUDY 4 mls/hr Administration Protocol 1 MG/HR Dopamine HCl/Dextrose 800 mg in 250 mls @ 4.163 mls/hr 02/14/21 09:00 1 01:20 Intropin Drip 800 Mg/D5w 250 Ml IV 10 mcg/kg/min TITR RUDY 20.813 mls/hr Administration Protocol 2 MCG/KG/MIN Sodium Chloride 100 mls @ 999 mls/hr 02/21/21 08:03 Nacl 0.9% IV AFTAB PRN Hypotension Vasopressin 20 unit/ Sodium 101 mls @ 9.09 mls/hr 02/21/21 13:00 Chloride IV TITR RUDY Protocol 0.03 UNITS/MIN Insulin Glargine 30 units 02/21/21 22:00 Insulin Glargine 100 Units/Ml SUB-Q QHS RUDY Insulin Human Regular 0 units 02/14/21 12:00 02/21/21 06:07 Insulin Regular, Human 100 Units/1 Ml SUB-Q 6 units Q6H [facility] Administration Protocol Methylprednisolone Sodium Succinate 40 mg 02/18/21 06:00 02/21/21 06:07 Methylprednisolone Sod Succinate 40 Mg/1 Ml Inj IV 40 mg Q8H RUDY Administration Metoclopramide HCl 5 mg 02/21/21 13:00 Metoclopramide 10 Mg/2 Ml Inj IV Q6HR RUDY Midazolam HCl 2 mg 02/14/21 08:24 Midazolam 2 Mg/2 Ml Inj IV Q10MIN PRN Sedation Multi-Ingred Cream/Lotion/Oil/Oint 1 applic 02/13/21 16:05 Mineral Oil/Petrolatum, White Ophth Oint 3.5 Gm OU Q4H PRN Dry Eye(s) Pantoprazole Sodium 40 mg 02/18/21 22:00 02/21/21 09:55 Pantoprazole 40 Mg Inj IV 40 mg BID RUDY Administration Senna/Docusate Sodium 1 tab 02/13/21 22:00 02/21/21 09:55 Sennosides/Docusate Sodium 8.6/50 Mg Tab FEEDTUBE 1 tab BID RUDY Administration Simple Syrup 15 ml 02/14/21 10:43 Simple Syrup 15 Ml FEEDTUBE PRN PRN Hypoglycemia Simple Syrup 30 ml 02/14/21 10:43 Simple Syrup 15 Ml FEEDTUBE PRN PRN Hypoglycemia Sodium Bicarbonate 325 mg 02/14/21 10:43 Sodium Bicarbonate 325 Mg Tab FEEDTUBE PRN PRN For Clogged Feeding Tube Sodium Chloride 10 ml 02/13/21 22:00 02/21/21 09:55 Sodium Chloride 0.9% 10 Ml Flush Syringe IV 10 ml BID RUDY Administration Sodium Chloride 10 ml 02/13/21 15:22 Sodium Chloride 0.9% 10 Ml Flush Syringe IV PRN PRN LINE FLUSH Zinc Sulfate 220 mg 02/13/21 22:00 02/21/21 09:55 Zinc Sulfate 220 Mg Cap PO 220 mg BID RUDY Administration Nutrition/Malnutrition Assess - Dietary Evaluation Nutrition/Malnutrition Findings: Nutrition Notes Start: 02/14/21 10:34 Freq: Status: Active Protocol: Document 02/21/21 11:53 MK (Rec: 02/21/21 11:56 MK [id number]) Nutrition Notes Initial or Follow up Brief Note Current Diagnosis Acute Kidney Injury, Hypertension,Respiratory Failure Other Pertinent Diagnosis SIRS, pneu, COVID Current Diet Nepro 1.8 at 30 ml/hr Subjective/Other Information Pt was running at 10 ml/hr. Per RN, gastric residuals > 700ml/hr and TF stopped. Recommend Reglan. Nutrition Intervention Follow-Up By: 02/23/21 Additional Comments F/u: TF at goal, tolerance and propofol rate - Attestation Statement I have reviewed and agreed w/ Malnutrition eval & tx plan: Yes <CELINA JEFFERSON - Last Filed: 02/21/21 17:34> History Interval history: I saw and evaluated the patient. Discussed with the nurse practitioner and agree with their findings and plan as documented in this note. Hospitalist Physical - Constitutional Vitals: Temp Pulse Resp BP Pulse Ox 99 F 110 H 20 126/62 81 L 02/21/21 16:00 02/21/21 10:50 02/21/21 10:50 02/21/21 10:50 02/21/21 10:50 HEART Score - HEART Score Troponin: Troponin T 0.033 ng/mL (0.00-0.029) H 02/13/21 18:39 Results - Labs CBC & Chem 7: 02/21/21 04:40 02/21/21 04:40 Labs: Laboratory Last Values WBC 27.0 K/mm3 (4.5-11.0) H 02/21/21 04:40 RBC 3.03 M/mm3 (3.65-5.03) L 02/21/21 04:40 Hgb 7.8 gm/dl (10.1-14.3) L 02/21/21 04:40 Hct 24.3 % (30.3-42.9) L 02/21/21 04:40 MCV 80 fl (79-97) 02/21/21 04:40 MCH 26 pg (28-32) L 02/21/21 04:40 MCHC 32 % (30-34) 02/21/21 04:40 RDW 17.0 % (13.2-15.2) H 02/21/21 04:40 Plt Count 281 K/mm3 (140-440) 02/21/21 04:40 Lymph % (Auto) 5.9 % (13.4-35.0) L 02/13/21 13:28 [place] % (Auto) 4.5 % (0.0-7.3) 02/13/21 13:28 Eos % (Auto) 0.0 % (0.0-4.3) 02/13/21 13:28 Baso % (Auto) 0.3 % (0.0-1.8) 02/13/21 13:28 Lymph # (Auto) 0.3 K/mm3 (1.2-5.4) L 02/13/21 13:28 [place] # (Auto) 0.3 K/mm3 (0.0-0.8) 02/13/21 13:28 Eos # (Auto) 0.0 K/mm3 (0.0-0.4) 02/13/21 13:28 Baso # (Auto) 0.0 K/mm3 (0.0-0.1) 02/13/21 13:28 Seg Neutrophils % 89.3 % (40.0-70.0) H 02/13/21 13:28 Seg Neutrophils # 5.2 K/mm3 (1.8-7.7) 02/13/21 13:28 PT 16.9 Sec. (12.2-14.9) H 02/17/21 15:51 INR 1.31 (0.87-1.13) H 02/17/21 15:51 APTT 90.0 Sec. (24.2-36.6) H* 02/17/21 15:51 Fibrinogen 859 mg/dl (211-480) H 02/17/21 15:51 D-Dimer 6346.92 ng/mlDDU (0-234) H 02/20/21 06:10 Heparin Anti-Xa Level < 0.10 U.I./ml (0.3-0.7) L 02/19/21 04:25 ABG pH 7.110 pH Units (7.350-7.450) L* 02/21/21 05:55 POC ABG pCO2 34.3 mmHg (32.0-48.0) 02/19/21 04:00 ABG pCO2 54.2 mm Hg 02/21/21 05:55 POC ABG pO2 59.8 mmHg (83-108) L 02/19/21 04:00 ABG pO2 64.1 mm Hg (80.0-90.0) L 02/21/21 05:55 POC ABG HCO3 21.1 02/19/21 04:00 ABG HCO3 16.8 mmol/L (20.0-26.0) L 02/21/21 05:55 ABG O2 Saturation 80.4 % (95.0-99.0) L 02/21/21 05:55 ABG O2 Content 8.9 (0.0-44) 02/21/21 05:55 POC ABG Base Excess -3.2 02/19/21 04:00 ABG Base Excess -12.0 mmol/L (-2.0-3.0) L 02/21/21 05:55 ABG Hemoglobin 8.1 gm/dl (12.0-16.0) L 02/21/21 05:55 ABG Oxyhemoglobin 88.6 (94-98) L 02/19/21 04:00 ABG Carboxyhemoglobin 2.8 % (0.0-5.0) 02/21/21 05:55 ABG Methemoglobin 0.6 % (0.0-1.5) 02/21/21 05:55 ABG Sodium 136.8 mmol/L (136.0-145.0) 02/19/21 04:00 ABG Potassium 3.7 mmol/L (3.40-4.50) 02/19/21 04:00 ABG Chloride 103.0 mmol/L (98-107) 02/19/21 04:00 ABG Glucose 340 mg/dL (65-95) H 02/19/21 04:00 Oxyhemoglobin 77.7 % (95.0-99.0) L 02/21/21 05:55 Carboxyhemoglobin 0.8 (0.5-1.5) 02/19/21 04:00 FiO2 10 % 02/21/21 05:55 FiO2 % 100.0 02/19/21 04:00 Sodium 134 mmol/L (137-145) L 02/21/21 04:40 Potassium 6.6 mmol/L (3.6-5.0) H* D 02/21/21 04:40 Chloride 93.7 mmol/L (98-107) L 02/21/21 04:40 Carbon Dioxide 18 mmol/L (22-30) L 02/21/21 04:40 Anion Gap 29 mmol/L 02/21/21 04:40 BUN 104 mg/dL (7-17) H 02/21/21 04:40 Creatinine 5.7 mg/dL (0.6-1.2) H 02/21/21 04:40 Estimated GFR 9 ml/min 02/21/21 04:40 BUN/Creatinine Ratio 18 % 02/21/21 04:40 Glucose 337 mg/dL (65-100) H 02/21/21 04:40 POC Glucose 196 mg/dL (70-105) H 02/21/21 17:12 Lactic Acid 1.90 mmol/L (0.7-2.0) 02/14/21 22:33 Calcium 7.2 mg/dL (8.4-10.2) L 02/21/21 04:40 Phosphorus 10.60 mg/dL (2.5-4.5) H 02/21/21 04:40 Magnesium 2.70 mg/dL (1.7-2.3) H 02/21/21 04:40 Iron 42 ug/dL (37-170) 02/17/21 12:59 TIBC 231 mcg/dL (250-450) L 02/17/21 12:59 % Saturation 18.18 % 02/17/21 12:59 Transferrin 193 mg/dl (192-382) 02/17/21 12:59 Ferritin 1213.0 ng/mL (10.0-200.0) H 02/20/21 06:10 Total Bilirubin 0.60 mg/dL (0.1-1.2) 02/19/21 04:25 Direct Bilirubin < 0.2 mg/dL (0-0.2) 02/13/21 13:28 Indirect Bilirubin 0.2 mg/dL 02/13/21 13:28 AST 31 units/L (5-40) 02/19/21 04:25 ALT 20 units/L (7-56) 02/19/21 04:25 Alkaline Phosphatase 84 units/L (35-129) 02/19/21 04:25 Ammonia 48.0 umol/L (25-60) 02/13/21 13:28 Lactate Dehydrogenase 724 units/L (91-180) H 02/20/21 06:10 Total Creatine Kinase 1572 units/L (30-135) H 02/13/21 13:28 Troponin T 0.033 ng/mL (0.00-0.029) H 02/13/21 18:39 C-Reactive Protein 13.60 mg/dL (0.00-1.30) H 02/20/21 06:10 NT-Pro-B Natriuret Pep 3473 pg/mL (0-900) H 02/13/21 13:36 Total Protein 7.3 g/dL (6.3-8.2) 02/19/21 04:25 Albumin 3.8 g/dL (3.9-5) L 02/19/21 04:25 Albumin/Globulin Ratio 1.1 % 02/19/21 04:25 Triglycerides 687 mg/dL (2-149) H 02/21/21 10:41 Cholesterol 130 mg/dL (50-199) 02/13/21 16:27 LDL Cholesterol Direct 68 mg/dL (50-130) 02/13/21 16:27 HDL Cholesterol 40 mg/dL (40-59) 02/13/21 16:27 Cholesterol/HDL Ratio 3.25 % 02/13/21 16:27 Lipase 35 units/L (13-60) 02/13/21 13:28 Procalcitonin 58.83 ng/mL (<0.15) 02/14/21 10:40 TSH 8.530 mlU/mL (0.270-4.200) H 02/13/21 13:28 Free T3 Index 0.8 pg/mL (2.3-4.2) L 02/16/21 04:30 Arterial Blood Glucose 340 mg/dL (65-95) H 02/19/21 04:00 Arterial Blood Ionized Calcium 3.8 mg/dL (4.6-5.3) L 02/19/21 04:00 Urine Color Laura (Yellow) 02/13/21 21: Urine Turbidity Turbid (Clear) 02/13/21 21: Urine pH 5.0 (5.0-7.0) 02/13/21: Ur Specific [place] 1.025 (1.003-1.030) 02/13/21 21: Urine Protein >500 mg/dL (Negative) 02/13/21 21: Urine Glucose (UA) Neg mg/dL (Negative) 02/13/21: Urine Ketones Neg mg/dL (Negative) 02/13/21 21: Urine Blood Lg (Negative) 02/13/21 21: Urine Nitrite Neg (Negative) 02/13/21: Urine Bilirubin Neg (Negative) 02/13/21: Urine Urobilinogen < 2.0 mg/dL (<2.0) 02/13/21 21: Ur Leukocyte Esterase Neg (Negative) 02/13/21 21: Urine WBC (Auto) 31.0 /HPF (0.0-6.0) H 02/13/21 21: Urine RBC (Auto) 8.0 /HPF (0.0-6.0) 02/13/21: U Epithel Cells (Auto) 4.0 /HPF (0-13.0) 02/13/21: Urine Bacteria (Auto) 2+ /HPF (Negative) 02/13/21: Urine WBC Clumps 3+ /HPF 02/13/21 21: Hyaline Casts 5 /LPF 02/13/21 21: Urine Mucus 2+ /HPF 02/13/21 21: Urine Yeast (Budding) 3+ /HPF 02/13/21 21: Urine Creatinine 80.0 mg/dL (0.1-20.0) H 02/14/21 18:45 Urine Sodium 33 mmol/L 02/14/21 18:45 Salicylates < 0.3 mg/dL (2.8-20.0) L 02/13/21 13:28 Urine Opiates Screen Negative 02/13/21 21:27 Urine Methadone Screen Negative 02/13/21 21:27 Acetaminophen 5.0 ug/mL (10.0-30.0) L 02/13/21 13:28 Ur Barbiturates Screen Negative 02/13/21 21:27 Ur Phencyclidine Scrn Negative 02/13/21 21:27 Ur Amphetamines Screen Negative 02/13/21 21:27 U Benzodiazepines Scrn Negative 02/13/21 21:27 Urine Cocaine Screen Negative 02/13/21 21:27 U Marijuana (THC) Screen Negative 02/13/21 21:27 Drugs of Abuse Note Disclamer 02/13/21 21:27 Plasma/Serum Alcohol < 0.01 % (0-0.07) 02/13/21 13:28 Coronavirus (PCR) Positive (Negative) A 02/14/21 Unknown Hepatitis A IgM Ab Non-reactive (NonReactive) 02/17/21 12:59 Hep Bs Antigen Nonreactive (Negative) 02/17/21 12:59 Hep B Core IgM Ab Non-reactive (NonReactive) 02/17/21 12:59 Hepatitis C Antibody Non-reactive (NonReactive) 02/17/21 12:59 Blood Type B POSITIVE 02/13/21 13:31 Antibody Screen Negative 02/13/21 13:31 Cho/IV: Voiding Method Indwelling Catheter Active Medications - Current Medications Current Medications: Generic Name Dose Route Start Last Admin Trade Name Freq PRN Reason Stop Dose Admin Acetaminophen 650 mg 02/13/21 15:22 Acetaminophen 325 Mg Tab PO Q6H PRN Pain, Mild (1-3) Acetaminophen 650 mg 02/13/21 15:22 02/13/21 20:30 Acetaminophen 650 Mg Rect Supp MT 650 mg Q6H PRN Administration Pain MILD(1-3)/Fever >100.5/ZACARIAS Albumin Human 25 gm 02/21/21 08:04 Albumin Human 25% (25 Gm/100 Ml) Inj IV AFTAB PRN Hypotension Albuterol 2.5 mg 02/13/21 15:22 Albuterol 2.5 Mg/3 Ml Nebu IH Q3H PRN Shortness Of Breath Lipase/Protease/Amylase 1 each 02/14/21 10:43 Lipase 10,500/Protease 25,000/Amylase 43,750 (Units) Dr Cap FEEDTUBE PRN PRN For Clogged Feeding Tube Ascorbic Acid 500 mg 02/13/21 22:00 02/20/21 21:20 Ascorbic Acid 500 Mg Tab PO 500 mg BID RUDY Administration Cholecalciferol 1,000 unit 02/13/21 16:00 02/21/21 09:55 Cholecalciferol (Vit D3) 1000 Unit (25 Mcg) Tab PO 1,000 unit QDAY RUDY Administration Dextrose 50 ml 02/14/21 11:15 Dextrose 50% In Water (25gm) 50 Ml Syringe IV Q30MIN PRN Hypoglycemia Protocol Fentanyl 50 mcg 02/13/21 16:05 Fentanyl 100 Mcg/2 Ml Inj IV Q10MIN PRN ANALGESIA Hydrophilic Ointment 1 applic 02/13/21 22:52 Lip Therapy Vaseline TP Q2HR PRN Dry Lips Fentanyl Citrate 2,000 mcg in 100 mls @ 5.55 mls/hr 02/13/21 17:00 02/21/21 14:01 Fentanyl Drip Premix IV 4 mcg/kg/hr TITR RUDY 22.2 mls/hr Administration Protocol 1 MCG/KG/HR Norepinephrine 4 mg in 250 mls @ 75 mls/hr 02/13/21 18:00 02/21/21 17:33 Levophed Drip 4 Mg/Ns 250 Ml IV 12 mcg/min TITR RUDY 45 mls/hr Administration Protocol 20 MCG/MIN Midazolam HCl 100 mg/ Sodium 100 mls @ 1 mls/hr 02/14/21 09:00 02/21/21 08:43 Chloride IV 4 mg/hr TITR RUDY 4 mls/hr Administration Protocol 1 MG/HR Dopamine HCl/Dextrose 800 mg in 250 mls @ 4.163 mls/hr 02/14/21 09:00 02/21/21 14:05 Intropin Drip 800 Mg/D5w 250 Ml IV 10 mcg/kg/min TITR RUDY 20.813 mls/hr Administration Protocol 2 MCG/KG/MIN Sodium Chloride 100 mls @ 999 mls/hr 02/21/21 08:03 Nacl 0.9% IV AFTAB PRN Hypotension Vasopressin 20 unit/ Sodium 101 mls @ 9.09 mls/hr 02/21/21 13:00 Chloride IV TITR RUDY Protocol 0.03 UNITS/MIN Insulin Glargine 30 units 02/21/21 22:00 Insulin Glargine 100 Units/Ml SUB-Q QHS RUDY Insulin Human Regular 0 units 02/14/21 12:00 02/21/21 14:03 Insulin Regular, Human 100 Units/1 Ml SUB-Q 3 units Q6H RUDY Administration Protocol Methylprednisolone Sodium Succinate 40 mg 02/18/21 06:00 02/21/21 14:03 Methylprednisolone Sod Succinate 40 Mg/1 Ml Inj IV 40 mg Q8H RUDY Administration Metoclopramide HCl 5 mg 02/21/21 13:00 02/21/21 14:01 Metoclopramide 10 Mg/2 Ml Inj IV 5 mg Q6HR RUDY Administration Midazolam HCl 2 mg 02/14/21 08:24 Midazolam 2 Mg/2 Ml Inj IV Q10MIN PRN Sedation Multi-Ingred Cream/Lotion/Oil/Oint 1 applic 02/13/21 16:05 Mineral Oil/Petrolatum, White Ophth Oint 3.5 Gm OU Q4H PRN Dry Eye(s) Pantoprazole Sodium 40 mg 02/18/21 22:00 02/21/21 09:55 Pantoprazole 40 Mg Inj IV 40 mg BID RUDY Administration Senna/Docusate Sodium 1 tab 02/13/21 22:00 02/21/21 09:55 Sennosides/Docusate Sodium 8.6/50 Mg Tab FEEDTUBE 1 tab BID RUDY Administration Simple Syrup 15 ml 02/14/21 10:43 Simple Syrup 15 Ml FEEDTUBE PRN PRN Hypoglycemia Simple Syrup 30 ml 02/14/21 10:43 Simple Syrup 15 Ml FEEDTUBE PRN PRN Hypoglycemia Sodium Bicarbonate 325 mg 02/14/21 10:43 Sodium Bicarbonate 325 Mg Tab FEEDTUBE PRN PRN For Clogged Feeding Tube Sodium Chloride 10 ml 02/13/21 22:00 02/21/21 09:55 Sodium Chloride 0.9% 10 Ml Flush Syringe IV 10 ml BID RUDY Administration Sodium Chloride 10 ml 02/13/21 15:22 Sodium Chloride 0.9% 10 Ml Flush Syringe IV PRN PRN LINE FLUSH Zinc Sulfate 220 mg 02/13/21 22:00 02/21/21 09:55 Zinc Sulfate 220 Mg Cap PO 220 mg BID RUDY Administration Nutrition/Malnutrition Assess - Dietary Evaluation Nutrition/Malnutrition Findings: Nutrition Notes Start: 02/14/21 10:34 Freq: Status: Active Protocol: Document 02/21/21 11:53 MK (Rec: 02/21/21 11:56 MK [id number]) Nutrition Notes Initial or Follow up Brief Note Current Diagnosis Acute Kidney Injury, Hypertension,Respiratory Failure Other Pertinent Diagnosis SIRS, pneu, COVID Current Diet Nepro 1.8 at 30 ml/hr Subjective/Other Information Pt was running at 10 ml/hr. Per RN, gastric residuals > 700ml/hr and TF stopped. Recommend Reglan. Nutrition Intervention Follow-Up By: 02/23/21 Additional Comments F/u: TF at goal, tolerance and propofol rate
[2021-02-21] MEDS: METOCLOPRAMIDE 10 MG/2 ML INJ IV SCH ×2 (14:01→18:55)
--- NOTE | 2021-02-21 15:34 | Progress Note ---
Assessment and Plan Acute hypoxemic respiratory failure Acute respiratory distress syndrome Bilateral pneumonia PUI COVID-19 Obesity hypoventilation syndrome Acute kidney injuryElevated serum inflammatory markers to include D-dimers, ferritin, LDH, CRP Hyperkalemia Lactic acidosis Probable rhabdomyolysis Acute encephalopathy (I had a candid discussion with her daughter Carolin and explained my fear that even if she survives she will have suffered some significant neurologic damage. I have asked her to gather her siblings and discuss end-of-life issues) - reduced peep to 18 cm H2O - will accept O2 sats in the 80's as lung as no significant Lactic acidemia - get stat lactate level - give Insulin and glucose for hyperkalemia - discontinue Propofol re: hypertriglyceridemiua - add Versed for target RASS -2 to -3 - continue chest tube to continuous wall suction - continue HD/UF for toxin and volume clearance per nephrology prescription - continue to wean vasopressors for target MAP > 65 mmHg and dopamine for target HR > 55-60/min - continue care as below otherwise; - nephrology evaluation ongoing - continue to wean supplemental oxygen for target O2 sat's > 92% acutely - aspiration precautions - continue bronchodilators with pulmonary hygiene per RT - avoid nephrotoxins, renally dose all medications - continue to avoid benzodiazepine's, reduce the possibility of delirium - complete AB's per ID rec's - prn analgesia per pain score - Maintenance of sleep-wake cycle, avoid delirium - G.I. & VTE prophylaxis - PT/OT/ROM exercises - continue mobility protocols for pressure ulcer prophylaxis - Monitor hemodynamics closely - continue other care per attending / other consultants - discharge planning ongoing concurrently COVID SPECIFIC INTERVENTIONS - Remdesivir as per ID/Pulmonary developed protocols (not a candidate re: SONIA) - continue systemic steroids for severe COVID-19 infection (Solumedrol) - follow repeat COVID tests results - zinc and vitamin C supplementation - Monitor inflammatory markers per facility protocol - ferritin, Ddimer, CRP - therapeutic anticoagulation per system Protocol based on d-dimer and clinical considerations (IV Heparin drip) - Continue contact and airborne isolation .... Re-evaluate in am & prn CONDITION: CRITICAL PROGNOSIS: GRAVE CODE STATUS: FULL CODE The high probability of a clinically significant, sudden or life-threatening deterioration of the [respiratory, cardiovascular & neurologic] system(s) required my full and direct attention, intervention and personal management. The aggregate critical care time was [33] minutes without overlap. Time includes spent on; [x] Data Review and interpretation [x] Patient assessment and monitoring of vital signs [x] Documentation [x] Medication orders and management Subjective Date of service: 02/21/21 Principal diagnosis: AHRF; ARDS; Pneumonia; PUI COVID-19; OHS; SONIA; Hyperkalemia; AMS Interval history: Patient is seen today for: Acute hypoxemic respiratory failure; ARDS; Pneumonia; PUI COVID-19; OHS; SONIA; Hyperkalemia; Rhabdomyolysis; Acute encephalopathy Seen and examined at bedside; 24hour events reviewed; nursing and respiratory care staff consulted; no adverse overnight events reported to me; resting in bed; remains on MVS; SQ emphysema is persistent and tense; O2 sats remains in the high 70's to low 80's despite peep of 22 and 100% FiO2; remains on Levo & Dopamine drips Objective Vital Signs - 12hr 02/21/21 02/21/21 02/21/21 03:30 03:45 03:54 Temperature 98.8 F Pulse Rate 99 H 99 H Respiratory 28 H 28 H Rate Blood Pressure 89/57 94/52 O2 Sat by Pulse 81 L 81 L Oximetry O2 Sat by Pulse Oximetry [ Anterior Bilateral Throughout] 02/21/21 02/21/21 02/21/21 04:00 04:16 04:30 Temperature Pulse Rate 98 H 90 86 Respiratory 28 H 28 H 28 H Rate Blood Pressure 90/44 111/11 111/11 O2 Sat by Pulse 81 L 83 L 83 L Oximetry O2 Sat by Pulse Oximetry [ Anterior Bilateral Throughout] 02/21/21 02/21/21 02/21/21 04:46 05:00 05:16 Temperature Pulse Rate 92 H 97 H 98 H Respiratory 28 H 28 H 28 H Rate Blood Pressure 109/59 90/55 93/27 O2 Sat by Pulse 80 L 81 L 82 L Oximetry O2 Sat by Pulse Oximetry [ Anterior Bilateral Throughout] 02/21/21 02/21/21 02/21/21 05:30 05:45 06:00 Temperature Pulse Rate 98 H 98 H 98 H Respiratory 28 H 28 H 28 H Rate Blood Pressure 96/51 90/57 96/54 O2 Sat by Pulse 82 L 82 L 82 L Oximetry O2 Sat by Pulse Oximetry [ Anterior Bilateral Throughout] 02/21/21 02/21/2121 06:15 06:30 06:45 Temperature Pulse Rate 97 H 97 H 96 H Respiratory 22 28 H 28 H Rate Blood Pressure 91/45 102/53 105/54 O2 Sat by Pulse 81 L 81 L 81 L Oximetry O2 Sat by Pulse Oximetry [ Anterior Bilateral Throughout] 02/21/21 02/21/21 02/21/21 07:00 07:15 07:30 Temperature Pulse Rate 96 H 95 H 95 H Respiratory 28 H 28 H 28 H Rate Blood Pressure 104/55 106/58 103/50 O2 Sat by Pulse 81 L 81 L 81 L Oximetry O2 Sat by Pulse Oximetry [ Anterior Bilateral Throughout] 02/21/21 02/21/21 02/21/21 08:00 09:15 09:26 Temperature 99.3 F 98.5 F Pulse Rate 99 H 90 93 H Respiratory 28 H Rate Blood Pressure 118/59 115/59 103/41 O2 Sat by Pulse 81 L Oximetry O2 Sat by Pulse 81 L Oximetry [ Anterior Bilateral Throughout] 02/21/21 02/21/21 02/21/21 09:45 10:00 10:15 Temperature Pulse Rate 98 H 57 L 103 H Respiratory Rate Blood Pressure 85/52 78/54 122/61 O2 Sat by Pulse Oximetry O2 Sat by Pulse Oximetry [ Anterior Bilateral Throughout] 02/21/21 02/21/21 10:36 10:50 Temperature Pulse Rate 118 H 110 H Respiratory Rate Blood Pressure 48/12 126/62 O2 Sat by Pulse Oximetry O2 Sat by Pulse 81 L Oximetry [ Anterior Bilateral Throughout] Constitutional: no acute distress (sedated), other (elderly lady without significant patient ventilator dyssynchrony; severe SQ emphysema to upper chest and face now) Eyes: non-icteric, other (catarino-orbital SQ emphysema) ENT: oropharynx moist, other (ETT 24 cm JANETH) Neck: supple, no lymphadenopathy, no JVD, other (large circumference) Effort: mildly labored Ascultation: Bilateral: diminished breath sounds, rales, other (right anterior chest tube in place; persistent SQ emphysema) Percussion: Bilateral: not dull Cardiovascular: regular rate and rhythm Gastrointestinal: normoactive bowel sounds, soft, non-tender, non-distended (protuberant) Integumentary: normal Extremities: no edema, pulses normal, no ischemia or petechiae, edema Neurologic: pupils equal and round, CN II-XII normal, unable to assess, other (sedated) Psychiatric: other (unable to assess re: AMS) CBC and BMP: 02/21/21 04:40 02/21/21 04:40 ABG, PT/INR, D-dimer: ABG ABG pH 7.110 pH Units (7.350-7.450) L* 02/21/21 05:55 POC ABG pCO2 34.3 mmHg (32.0-48.0) 02/19/21 04:00 ABG pCO2 54.2 mm Hg 02/21/21 05:55 POC ABG pO2 59.8 mmHg (83-108) L 02/19/21 04:00 ABG pO2 64.1 mm Hg (80.0-90.0) L 02/21/21 05:55 POC ABG HCO3 21.1 02/19/21 04:00 ABG O2 Saturation 80.4 % (95.0-99.0) L 02/21/21 05:55 PT/INR, D-dimer PT 16.9 Sec. (12.2-14.9) H 02/17/21 15:51 INR 1.31 (0.87-1.13) H 02/17/21 15:51 D-Dimer 6346.92 ng/mlDDU (0-234) H 02/20/21 06:10 Abnormal lab findings: Abnormal Labs 02/13/21 02/13/21 02/13/21 12:46 13:28 13:28 WBC RBC Hgb Hct MCV MCH 25 L RDW 15.7 H Lymph % (Auto) 5.9 L Lymph # (Auto) 0.3 L Seg Neutrophils % 89.3 H PT 15.0 H INR APTT 23.8 L Fibrinogen D-Dimer 478.95 H Heparin Anti-Xa Level ABG pH POC ABG pCO2 POC ABG pO2 ABG pO2 ABG HCO3 ABG O2 Saturation ABG Base Excess ABG Hemoglobin ABG Oxyhemoglobin ABG Sodium ABG Potassium ABG Glucose Oxyhemoglobin Carboxyhemoglobin Sodium Potassium Chloride Carbon Dioxide BUN Creatinine Glucose POC Glucose 190 H Lactic Acid Calcium Phosphorus Magnesium TIBC Ferritin AST Lactate Dehydrogenase Total Creatine Kinase Troponin T C-Reactive Protein NT-Pro-B Natriuret Pep Albumin Triglycerides TSH Free T3 Index Arterial Blood Glucose Arterial Blood Ionized Calcium Urine WBC (Auto) Urine Creatinine Salicylates Acetaminophen Coronavirus (PCR) 02/13/21 02/13/21 02/13/21 13:28 13:28 13:28 WBC RBC Hgb Hct MCV MCH RDW Lymph % (Auto) Lymph # (Auto) Seg Neutrophils % PT INR APTT Fibrinogen D-Dimer Heparin Anti-Xa Level ABG pH POC ABG pCO2 POC ABG pO2 ABG pO2 ABG HCO3 ABG O2 Saturation ABG Base Excess ABG Hemoglobin ABG Oxyhemoglobin ABG Sodium ABG Potassium ABG Glucose Oxyhemoglobin Carboxyhemoglobin Sodium Potassium 5.1 H Chloride 95.7 L Carbon Dioxide BUN 36 H Creatinine 2.0 H Glucose 172 H POC Glucose Lactic Acid 6.50 H* Calcium 7.5 L Phosphorus Magnesium TIBC Ferritin AST 81 H Lactate Dehydrogenase Total Creatine Kinase 1572 H Troponin T C-Reactive Protein NT-Pro-B Natriuret Pep Albumin 3.4 L Triglycerides TSH 8.530 H Free T3 Index Arterial Blood Glucose Arterial Blood Ionized Calcium Urine WBC (Auto) Urine Creatinine Salicylates Acetaminophen Coronavirus (PCR) 02/13/21 02/13/21 02/13/21 13:28 13:28 13:28 WBC RBC Hgb Hct MCV MCH RDW Lymph % (Auto) Lymph # (Auto) Seg Neutrophils % PT INR APTT Fibrinogen D-Dimer Heparin Anti-Xa Level ABG pH POC ABG pCO2 POC ABG pO2 ABG pO2 ABG HCO3 ABG O2 Saturation ABG Base Excess ABG Hemoglobin ABG Oxyhemoglobin ABG Sodium ABG Potassium ABG Glucose Oxyhemoglobin Carboxyhemoglobin Sodium Potassium Chloride Carbon Dioxide BUN Creatinine Glucose POC Glucose Lactic Acid Calcium Phosphorus Magnesium 2.60 H TIBC Ferritin AST Lactate Dehydrogenase Total Creatine Kinase Troponin T C-Reactive Protein NT-Pro-B Natriuret Pep Albumin Triglycerides TSH Free T3 Index Arterial Blood Glucose Arterial Blood Ionized Calcium Urine WBC (Auto) Urine Creatinine Salicylates < 0.3 L Acetaminophen 5.0 L Coronavirus (PCR) 02/13/21 02/13/21 02/13/21 13:36 13:36 13:36 WBC RBC Hgb Hct MCV MCH RDW Lymph % (Auto) Lymph # (Auto) Seg Neutrophils % PT INR APTT Fibrinogen D-Dimer Heparin Anti-Xa Level ABG pH POC ABG pCO2 POC ABG pO2 ABG pO2 ABG HCO3 ABG O2 Saturation ABG Base Excess ABG Hemoglobin ABG Oxyhemoglobin ABG Sodium ABG Potassium ABG Glucose Oxyhemoglobin Carboxyhemoglobin Sodium Potassium Chloride Carbon Dioxide BUN Creatinine Glucose 176 H POC Glucose Lactic Acid Calcium Phosphorus Magnesium TIBC Ferritin 1667.0 H AST Lactate Dehydrogenase 713 H Total Creatine Kinase Troponin T C-Reactive Protein 30.70 H NT-Pro-B Natriuret Pep 3473 H Albumin Triglycerides TSH Free T3 Index Arterial Blood Glucose Arterial Blood Ionized Calcium Urine WBC (Auto) Urine Creatinine Salicylates Acetaminophen Coronavirus (PCR) 02/13/21 02/13/21 02/13/21 14:18 16:27 16:27 WBC RBC Hgb Hct MCV MCH RDW Lymph % (Auto) Lymph # (Auto) Seg Neutrophils % PT INR APTT Fibrinogen D-Dimer Heparin Anti-Xa Level ABG pH 7.528 H POC ABG pCO2 POC ABG pO2 49.8 L ABG pO2 ABG HCO3 ABG O2 Saturation ABG Base Excess ABG Hemoglobin 11.8 L ABG Oxyhemoglobin 85.8 L ABG Sodium ABG Potassium ABG Glucose 180 H Oxyhemoglobin Carboxyhemoglobin Sodium Potassium Chloride Carbon Dioxide BUN Creatinine Glucose POC Glucose Lactic Acid 5.30 H* Calcium Phosphorus Magnesium TIBC Ferritin AST Lactate Dehydrogenase Total Creatine Kinase Troponin T 0.034 H D C-Reactive Protein NT-Pro-B Natriuret Pep Albumin Triglycerides 181 H TSH Free T3 Index Arterial Blood Glucose 180 H Arterial Blood Ionized Calcium 3.7 L Urine WBC (Auto) Urine Creatinine Salicylates Acetaminophen Coronavirus (PCR) 02/13/21 02/13/21 02/13/21 16:27 18:39 18:39 WBC RBC Hgb Hct MCV MCH RDW Lymph % (Auto) Lymph # (Auto) Seg Neutrophils % PT 15.3 H INR 1.16 H APTT Fibrinogen D-Dimer Heparin Anti-Xa Level ABG pH POC ABG pCO2 POC ABG pO2 ABG pO2 ABG HCO3 ABG O2 Saturation ABG Base Excess ABG Hemoglobin ABG Oxyhemoglobin ABG Sodium ABG Potassium ABG Glucose Oxyhemoglobin Carboxyhemoglobin Sodium Potassium Chloride Carbon Dioxide BUN Creatinine Glucose POC Glucose Lactic Acid 3.80 H* Calcium Phosphorus Magnesium TIBC Ferritin AST Lactate Dehydrogenase Total Creatine Kinase Troponin T 0.033 H C-Reactive Protein NT-Pro-B Natriuret Pep Albumin Triglycerides TSH Free T3 Index Arterial Blood Glucose Arterial Blood Ionized Calcium Urine WBC (Auto) Urine Creatinine Salicylates Acetaminophen Coronavirus (PCR) 02/13/21 02/13/21 02/14/21 21:00 21:27 03:54 WBC RBC Hgb Hct MCV MCH RDW Lymph % (Auto) Lymph # (Auto) Seg Neutrophils % PT INR APTT Fibrinogen D-Dimer Heparin Anti-Xa Level 0.96 H ABG pH POC ABG pCO2 POC ABG pO2 44.5 L ABG pO2 ABG HCO3 ABG O2 Saturation ABG Base Excess ABG Hemoglobin ABG Oxyhemoglobin 78.3 L ABG Sodium ABG Potassium ABG Glucose 181 H Oxyhemoglobin Carboxyhemoglobin Sodium Potassium Chloride Carbon Dioxide BUN Creatinine Glucose POC Glucose Lactic Acid Calcium Phosphorus Magnesium TIBC Ferritin AST Lactate Dehydrogenase Total Creatine Kinase Troponin T C-Reactive Protein NT-Pro-B Natriuret Pep Albumin Triglycerides TSH Free T3 Index Arterial Blood Glucose 181 H Arterial Blood Ionized Calcium 4.2 L Urine WBC (Auto) 31.0 H Urine Creatinine Salicylates Acetaminophen Coronavirus (PCR) 02/14/21 02/14/21 02/14/21 03:54 10:40 10:40 WBC RBC Hgb Hct MCV MCH RDW Lymph % (Auto) Lymph # (Auto) Seg Neutrophils % PT INR APTT Fibrinogen D-Dimer 1007.53 H Heparin Anti-Xa Level ABG pH POC ABG pCO2 POC ABG pO2 ABG pO2 ABG HCO3 ABG O2 Saturation ABG Base Excess ABG Hemoglobin ABG Oxyhemoglobin ABG Sodium ABG Potassium ABG Glucose Oxyhemoglobin Carboxyhemoglobin Sodium Potassium Chloride Carbon Dioxide BUN 41 H Creatinine 2.4 H Glucose 210 H POC Glucose Lactic Acid Calcium 7.7 L Phosphorus Magnesium TIBC Ferritin 1148.0 H AST Lactate Dehydrogenase Total Creatine Kinase Troponin T C-Reactive Protein NT-Pro-B Natriuret Pep Albumin Triglycerides TSH Free T3 Index Arterial Blood Glucose Arterial Blood Ionized Calcium Urine WBC (Auto) Urine Creatinine Salicylates Acetaminophen Coronavirus (PCR) 02/14/21 02/14/21 02/14/21 10:40 11:33 17:51 WBC RBC Hgb Hct MCV MCH RDW Lymph % (Auto) Lymph # (Auto) Seg Neutrophils % PT INR APTT Fibrinogen D-Dimer Heparin Anti-Xa Level ABG pH 7.285 L POC ABG pCO2 51.7 H POC ABG pO2 36.7 L ABG pO2 ABG HCO3 ABG O2 Saturation ABG Base Excess ABG Hemoglobin ABG Oxyhemoglobin 57.9 L ABG Sodium ABG Potassium ABG Glucose 310 H Oxyhemoglobin Carboxyhemoglobin Sodium Potassium Chloride Carbon Dioxide BUN Creatinine Glucose POC Glucose 265 H Lactic Acid Calcium Phosphorus Magnesium TIBC Ferritin AST Lactate Dehydrogenase 1381 H Total Creatine Kinase Troponin T C-Reactive Protein 36.70 H NT-Pro-B Natriuret Pep Albumin Triglycerides TSH Free T3 Index Arterial Blood Glucose 310 H Arterial Blood Ionized Calcium 3.9 L Urine WBC (Auto) Urine Creatinine Salicylates Acetaminophen Coronavirus (PCR) 02/14/21 02/14/21 02/14/21 18:00 18:15 18:33 WBC RBC Hgb Hct MCV MCH RDW Lymph % (Auto) Lymph # (Auto) Seg Neutrophils % PT INR APTT Fibrinogen D-Dimer Heparin Anti-Xa Level 1.09 H ABG pH POC ABG pCO2 POC ABG pO2 41.4 L ABG pO2 ABG HCO3 ABG O2 Saturation ABG Base Excess ABG Hemoglobin ABG Oxyhemoglobin 70.5 L ABG Sodium ABG Potassium ABG Glucose 308 H Oxyhemoglobin Carboxyhemoglobin Sodium Potassium Chloride Carbon Dioxide BUN Creatinine Glucose POC Glucose 260 H Lactic Acid Calcium Phosphorus Magnesium TIBC Ferritin AST Lactate Dehydrogenase Total Creatine Kinase Troponin T C-Reactive Protein NT-Pro-B Natriuret Pep Albumin Triglycerides TSH Free T3 Index Arterial Blood Glucose 308 H Arterial Blood Ionized Calcium 4.0 L Urine WBC (Auto) Urine Creatinine Salicylates Acetaminophen Coronavirus (PCR) 02/14/21 02/14/21 02/14/21 18:45 18:45 Unknown WBC RBC Hgb Hct MCV MCH RDW Lymph % (Auto) Lymph # (Auto) Seg Neutrophils % PT INR APTT Fibrinogen D-Dimer Heparin Anti-Xa Level ABG pH POC ABG pCO2 POC ABG pO2 ABG pO2 ABG HCO3 ABG O2 Saturation ABG Base Excess ABG Hemoglobin ABG Oxyhemoglobin ABG Sodium ABG Potassium ABG Glucose Oxyhemoglobin Carboxyhemoglobin Sodium Potassium Chloride Carbon Dioxide BUN Creatinine Glucose POC Glucose Lactic Acid 2.70 H* Calcium Phosphorus Magnesium TIBC Ferritin AST Lactate Dehydrogenase Total Creatine Kinase Troponin T C-Reactive Protein NT-Pro-B Natriuret Pep Albumin Triglycerides TSH Free T3 Index Arterial Blood Glucose Arterial Blood Ionized Calcium Urine WBC (Auto) Urine Creatinine 80.0 H Salicylates Acetaminophen Coronavirus (PCR) Positive A 02/15/21 02/15/21 02/15/21 00:25 04:07 05:00 WBC 16.0 H RBC Hgb Hct MCV 77 L MCH 25 L RDW 16.1 H Lymph % (Auto) Lymph # (Auto) Seg Neutrophils % PT INR APTT Fibrinogen D-Dimer Heparin Anti-Xa Level ABG pH POC ABG pCO2 POC ABG pO2 53.2 L ABG pO2 ABG HCO3 ABG O2 Saturation ABG Base Excess ABG Hemoglobin ABG Oxyhemoglobin 85.1 L ABG Sodium ABG Potassium ABG Glucose 257 H Oxyhemoglobin Carboxyhemoglobin 0.4 L Sodium Potassium Chloride Carbon Dioxide BUN Creatinine Glucose POC Glucose 256 H Lactic Acid Calcium Phosphorus Magnesium TIBC Ferritin AST Lactate Dehydrogenase Total Creatine Kinase Troponin T C-Reactive Protein NT-Pro-B Natriuret Pep Albumin Triglycerides TSH Free T3 Index Arterial Blood Glucose 257 H Arterial Blood Ionized Calcium 3.8 L Urine WBC (Auto) Urine Creatinine Salicylates Acetaminophen Coronavirus (PCR) 02/15/21 02/15/21 02/15/21 05:00 05:00 05:43 WBC RBC Hgb Hct MCV MCH RDW Lymph % (Auto) Lymph # (Auto) Seg Neutrophils % PT INR APTT Fibrinogen D-Dimer Heparin Anti-Xa Level 0.92 H ABG pH POC ABG pCO2 POC ABG pO2 ABG pO2 ABG HCO3 ABG O2 Saturation ABG Base Excess ABG Hemoglobin ABG Oxyhemoglobin ABG Sodium ABG Potassium ABG Glucose Oxyhemoglobin Carboxyhemoglobin Sodium Potassium Chloride Carbon Dioxide BUN 50 H Creatinine 3.2 H Glucose 247 H POC Glucose 253 H Lactic Acid Calcium 7.0 L Phosphorus Magnesium TIBC Ferritin AST Lactate Dehydrogenase Total Creatine Kinase Troponin T C-Reactive Protein NT-Pro-B Natriuret Pep Albumin Triglycerides TSH Free T3 Index Arterial Blood Glucose Arterial Blood Ionized Calcium Urine WBC (Auto) Urine Creatinine Salicylates Acetaminophen Coronavirus (PCR) 02/15/21 02/15/21 02/15/21 12:11 15:36 23:29 WBC RBC Hgb Hct MCV MCH RDW Lymph % (Auto) Lymph # (Auto) Seg Neutrophils % PT INR APTT Fibrinogen D-Dimer Heparin Anti-Xa Level ABG pH POC ABG pCO2 POC ABG pO2 ABG pO2 ABG HCO3 ABG O2 Saturation ABG Base Excess ABG Hemoglobin ABG Oxyhemoglobin ABG Sodium ABG Potassium ABG Glucose Oxyhemoglobin Carboxyhemoglobin Sodium Potassium Chloride Carbon Dioxide BUN Creatinine Glucose POC Glucose 145 H 200 H 220 H Lactic Acid Calcium Phosphorus Magnesium TIBC Ferritin AST Lactate Dehydrogenase Total Creatine Kinase Troponin T C-Reactive Protein NT-Pro-B Natriuret Pep Albumin Triglycerides TSH Free T3 Index Arterial Blood Glucose Arterial Blood Ionized Calcium Urine WBC (Auto) Urine Creatinine Salicylates Acetaminophen Coronavirus (PCR) 02/16/21 02/16/21 02/16/21 01:31 04:00 04:30 WBC RBC Hgb Hct MCV MCH RDW Lymph % (Auto) Lymph # (Auto) Seg Neutrophils % PT INR APTT Fibrinogen D-Dimer Heparin Anti-Xa Level ABG pH 7.243 L POC ABG pCO2 48.6 H POC ABG pO2 57.1 L ABG pO2 ABG HCO3 ABG O2 Saturation ABG Base Excess ABG Hemoglobin ABG Oxyhemoglobin 82.1 L ABG Sodium ABG Potassium ABG Glucose 287 H Oxyhemoglobin Carboxyhemoglobin Sodium Potassium Chloride Carbon Dioxide BUN 66 H Creatinine 4.0 H Glucose 277 H POC Glucose 241 H Lactic Acid Calcium 7.5 L Phosphorus Magnesium TIBC Ferritin AST Lactate Dehydrogenase Total Creatine Kinase Troponin T C-Reactive Protein NT-Pro-B Natriuret Pep Albumin Triglycerides 351 H TSH Free T3 Index Arterial Blood Glucose 287 H Arterial Blood Ionized Calcium 4.0 L Urine WBC (Auto) Urine Creatinine Salicylates Acetaminophen Coronavirus (PCR) 02/16/21 02/16/21 02/16/21 04:30 05:06 08:00 WBC RBC Hgb Hct MCV MCH RDW Lymph % (Auto) Lymph # (Auto) Seg Neutrophils % PT INR APTT Fibrinogen D-Dimer Heparin Anti-Xa Level ABG pH 7.292 L POC ABG pCO2 POC ABG pO2 33.5 L ABG pO2 ABG HCO3 ABG O2 Saturation ABG Base Excess ABG Hemoglobin ABG Oxyhemoglobin 55.0 L ABG Sodium ABG Potassium 4.7 H ABG Glucose 249 H Oxyhemoglobin Carboxyhemoglobin 0.4 L Sodium Potassium Chloride Carbon Dioxide BUN Creatinine Glucose POC Glucose 242 H Lactic Acid Calcium Phosphorus Magnesium TIBC Ferritin AST Lactate Dehydrogenase Total Creatine Kinase Troponin T C-Reactive Protein NT-Pro-B Natriuret Pep Albumin Triglycerides TSH Free T3 Index 0.8 L Arterial Blood Glucose 249 H Arterial Blood Ionized Calcium 3.7 L Urine WBC (Auto) Urine Creatinine Salicylates Acetaminophen Coronavirus (PCR) 02/16/21 02/16/21 02/16/21 10:10 10:31 10:31 WBC RBC Hgb Hct MCV MCH RDW Lymph % (Auto) Lymph # (Auto) Seg Neutrophils % PT INR APTT Fibrinogen D-Dimer 2846.74 H Heparin Anti-Xa Level ABG pH POC ABG pCO2 POC ABG pO2 30.7 L ABG pO2 ABG HCO3 ABG O2 Saturation ABG Base Excess ABG Hemoglobin ABG Oxyhemoglobin 50.9 L ABG Sodium ABG Potassium 4.6 H ABG Glucose 215 H Oxyhemoglobin Carboxyhemoglobin Sodium Potassium Chloride Carbon Dioxide BUN Creatinine Glucose POC Glucose Lactic Acid Calcium Phosphorus Magnesium TIBC Ferritin 1164.0 H AST Lactate Dehydrogenase Total Creatine Kinase Troponin T C-Reactive Protein NT-Pro-B Natriuret Pep Albumin Triglycerides TSH Free T3 Index Arterial Blood Glucose 215 H Arterial Blood Ionized Calcium 3.7 L Urine WBC (Auto) Urine Creatinine Salicylates Acetaminophen Coronavirus (PCR) 02/16/21 02/16/21 02/16/21 10:31 10:45 12:06 WBC RBC Hgb Hct MCV MCH RDW Lymph % (Auto) Lymph # (Auto) Seg Neutrophils % PT INR APTT Fibrinogen D-Dimer Heparin Anti-Xa Level ABG pH 7.330 L POC ABG pCO2 POC ABG pO2 ABG pO2 37.9 L* ABG HCO3 ABG O2 Saturation 64.0 L ABG Base Excess -5.0 L ABG Hemoglobin 11.8 L ABG Oxyhemoglobin ABG Sodium ABG Potassium ABG Glucose Oxyhemoglobin 62.7 L Carboxyhemoglobin Sodium Potassium Chloride Carbon Dioxide BUN Creatinine Glucose POC Glucose 223 H Lactic Acid Calcium Phosphorus Magnesium TIBC Ferritin AST Lactate Dehydrogenase 1678 H Total Creatine Kinase Troponin T C-Reactive Protein 33.10 H NT-Pro-B Natriuret Pep Albumin Triglycerides TSH Free T3 Index Arterial Blood Glucose Arterial Blood Ionized Calcium Urine WBC (Auto) Urine Creatinine Salicylates Acetaminophen Coronavirus (PCR) 02/16/21 02/16/21 02/16/21 13:23 17:24 20:08 WBC 20.3 H RBC 6.08 H Hgb 15.1 H D Hct 45.9 H D MCV 75 L MCH 25 L RDW 16.4 H Lymph % (Auto) Lymph # (Auto) Seg Neutrophils % PT INR APTT Fibrinogen D-Dimer Heparin Anti-Xa Level 1.06 H ABG pH POC ABG pCO2 POC ABG pO2 ABG pO2 ABG HCO3 ABG O2 Saturation ABG Base Excess ABG Hemoglobin ABG Oxyhemoglobin ABG Sodium ABG Potassium ABG Glucose Oxyhemoglobin Carboxyhemoglobin Sodium Potassium Chloride Carbon Dioxide BUN Creatinine Glucose POC Glucose 272 H Lactic Acid Calcium Phosphorus Magnesium TIBC Ferritin AST Lactate Dehydrogenase Total Creatine Kinase Troponin T C-Reactive Protein NT-Pro-B Natriuret Pep Albumin Triglycerides TSH Free T3 Index Arterial Blood Glucose Arterial Blood Ionized Calcium Urine WBC (Auto) Urine Creatinine Salicylates Acetaminophen Coronavirus (PCR) 02/16/21 02/17/21 02/17/21 23:57 04:00 04:30 WBC 12.5 H RBC Hgb 9.2 L D Hct 28.4 L D MCV 76 L MCH 25 L RDW 15.9 H Lymph % (Auto) Lymph # (Auto) Seg Neutrophils % PT INR APTT Fibrinogen D-Dimer Heparin Anti-Xa Level ABG pH POC ABG pCO2 28.7 L POC ABG pO2 59.0 L ABG pO2 ABG HCO3 ABG O2 Saturation ABG Base Excess ABG Hemoglobin 10.2 L ABG Oxyhemoglobin 90.3 L ABG Sodium 134.8 L ABG Potassium 3.3 L ABG Glucose 280 H Oxyhemoglobin Carboxyhemoglobin 0.1 L Sodium Potassium Chloride Carbon Dioxide BUN Creatinine Glucose POC Glucose 245 H Lactic Acid Calcium Phosphorus Magnesium TIBC Ferritin AST Lactate Dehydrogenase Total Creatine Kinase Troponin T C-Reactive Protein NT-Pro-B Natriuret Pep Albumin Triglycerides TSH Free T3 Index Arterial Blood Glucose 280 H Arterial Blood Ionized Calcium 3.5 L Urine WBC (Auto) Urine Creatinine Salicylates Acetaminophen Coronavirus (PCR) 02/17/21 02/17/21 02/17/21 04:30 04:30 05:48 WBC RBC Hgb Hct MCV MCH RDW Lymph % (Auto) Lymph # (Auto) Seg Neutrophils % PT INR APTT Fibrinogen D-Dimer Heparin Anti-Xa Level ABG pH POC ABG pCO2 POC ABG pO2 ABG pO2 ABG HCO3 ABG O2 Saturation ABG Base Excess ABG Hemoglobin ABG Oxyhemoglobin ABG Sodium ABG Potassium ABG Glucose Oxyhemoglobin Carboxyhemoglobin Sodium Potassium 3.4 L D Chloride Carbon Dioxide 20 L BUN 81 H Creatinine 5.1 H Glucose 260 H POC Glucose 237 H Lactic Acid Calcium 6.3 L D Phosphorus Magnesium 2.40 H TIBC Ferritin AST Lactate Dehydrogenase Total Creatine Kinase Troponin T C-Reactive Protein NT-Pro-B Natriuret Pep Albumin Triglycerides TSH Free T3 Index Arterial Blood Glucose Arterial Blood Ionized Calcium Urine WBC (Auto) Urine Creatinine Salicylates Acetaminophen Coronavirus (PCR) 02/17/21 02/17/21 02/17/21 12:07 12:59 15:51 WBC 12.8 H RBC 3.57 L Hgb 9.0 L Hct 27.0 L MCV 76 L MCH 25 L RDW 16.2 H Lymph % (Auto) Lymph # (Auto) Seg Neutrophils % PT INR APTT Fibrinogen D-Dimer Heparin Anti-Xa Level ABG pH POC ABG pCO2 POC ABG pO2 ABG pO2 ABG HCO3 ABG O2 Saturation ABG Base Excess ABG Hemoglobin ABG Oxyhemoglobin ABG Sodium ABG Potassium ABG Glucose Oxyhemoglobin Carboxyhemoglobin Sodium Potassium Chloride Carbon Dioxide BUN Creatinine Glucose POC Glucose 280 H Lactic Acid Calcium Phosphorus Magnesium 2.70 H TIBC 231 L Ferritin AST Lactate Dehydrogenase Total Creatine Kinase Troponin T C-Reactive Protein NT-Pro-B Natriuret Pep Albumin Triglycerides TSH Free T3 Index Arterial Blood Glucose Arterial Blood Ionized Calcium Urine WBC (Auto) Urine Creatinine Salicylates Acetaminophen Coronavirus (PCR) 02/17/21 02/17/21 02/17/21 15:51 15:51 17:27 WBC RBC Hgb Hct MCV MCH RDW Lymph % (Auto) Lymph # (Auto) Seg Neutrophils % PT 16.9 H INR 1.31 H APTT 90.0 H* Fibrinogen 859 H D-Dimer Heparin Anti-Xa Level ABG pH POC ABG pCO2 POC ABG pO2 ABG pO2 ABG HCO3 ABG O2 Saturation ABG Base Excess ABG Hemoglobin ABG Oxyhemoglobin ABG Sodium ABG Potassium ABG Glucose Oxyhemoglobin Carboxyhemoglobin Sodium Potassium Chloride Carbon Dioxide 17 L BUN 88 H Creatinine 5.1 H Glucose 330 H POC Glucose 294 H Lactic Acid Calcium Phosphorus Magnesium TIBC Ferritin AST Lactate Dehydrogenase Total Creatine Kinase Troponin T C-Reactive Protein NT-Pro-B Natriuret Pep Albumin 3.0 L Triglycerides TSH Free T3 Index Arterial Blood Glucose Arterial Blood Ionized Calcium Urine WBC (Auto) Urine Creatinine Salicylates Acetaminophen Coronavirus (PCR) 02/17/21 02/18/21 02/18/21 23:22 03:00 03:39 WBC 11.5 H RBC 3.18 L Hgb 8.1 L Hct 24.2 L MCV 76 L MCH 26 L RDW 15.8 H Lymph % (Auto) Lymph # (Auto) Seg Neutrophils % PT INR APTT Fibrinogen D-Dimer Heparin Anti-Xa Level ABG pH 7.315 L POC ABG pCO2 POC ABG pO2 66.9 L ABG pO2 ABG HCO3 ABG O2 Saturation ABG Base Excess ABG Hemoglobin 8.8 L ABG Oxyhemoglobin 90.2 L ABG Sodium ABG Potassium ABG Glucose 290 H Oxyhemoglobin Carboxyhemoglobin 0.3 L Sodium Potassium Chloride Carbon Dioxide BUN Creatinine Glucose POC Glucose 252 H Lactic Acid Calcium Phosphorus Magnesium TIBC Ferritin AST Lactate Dehydrogenase Total Creatine Kinase Troponin T C-Reactive Protein NT-Pro-B Natriuret Pep Albumin Triglycerides TSH Free T3 Index Arterial Blood Glucose 290 H Arterial Blood Ionized Calcium 3.4 L Urine WBC (Auto) Urine Creatinine Salicylates Acetaminophen Coronavirus (PCR) 02/18/21 02/18/21 02/18/21 03:39 04:00 06:11 WBC RBC Hgb Hct MCV MCH RDW Lymph % (Auto) Lymph # (Auto) Seg Neutrophils % PT INR APTT Fibrinogen D-Dimer Heparin Anti-Xa Level ABG pH POC ABG pCO2 POC ABG pO2 ABG pO2 ABG HCO3 ABG O2 Saturation ABG Base Excess ABG Hemoglobin ABG Oxyhemoglobin ABG Sodium ABG Potassium ABG Glucose Oxyhemoglobin Carboxyhemoglobin Sodium Potassium Chloride Carbon Dioxide 18 L BUN 95 H Creatinine 5.4 H Glucose 270 H POC Glucose 260 H Lactic Acid Calcium 6.3 L D Phosphorus Magnesium 2.60 H TIBC Ferritin AST Lactate Dehydrogenase Total Creatine Kinase Troponin T C-Reactive Protein NT-Pro-B Natriuret Pep Albumin Triglycerides 717 H TSH Free T3 Index Arterial Blood Glucose Arterial Blood Ionized Calcium Urine WBC (Auto) Urine Creatinine Salicylates Acetaminophen Coronavirus (PCR) 02/18/21 02/18/21 02/18/21 09:45 09:45 09:45 WBC RBC Hgb Hct MCV MCH RDW Lymph % (Auto) Lymph # (Auto) Seg Neutrophils % PT INR APTT Fibrinogen D-Dimer 1769.98 H Heparin Anti-Xa Level ABG pH POC ABG pCO2 POC ABG pO2 ABG pO2 ABG HCO3 ABG O2 Saturation ABG Base Excess ABG Hemoglobin ABG Oxyhemoglobin ABG Sodium ABG Potassium ABG Glucose Oxyhemoglobin Carboxyhemoglobin Sodium Potassium Chloride Carbon Dioxide BUN Creatinine Glucose POC Glucose Lactic Acid Calcium Phosphorus Magnesium TIBC Ferritin 902.0 H AST Lactate Dehydrogenase 784 H Total Creatine Kinase Troponin T C-Reactive Protein 20.30 H NT-Pro-B Natriuret Pep Albumin Triglycerides TSH Free T3 Index Arterial Blood Glucose Arterial Blood Ionized Calcium Urine WBC (Auto) Urine Creatinine Salicylates Acetaminophen Coronavirus (PCR) 02/18/21 02/18/21 02/18/21 11:16 17:59 23:32 WBC RBC Hgb Hct MCV MCH RDW Lymph % (Auto) Lymph # (Auto) Seg Neutrophils % PT INR APTT Fibrinogen D-Dimer Heparin Anti-Xa Level ABG pH POC ABG pCO2 POC ABG pO2 ABG pO2 ABG HCO3 ABG O2 Saturation ABG Base Excess ABG Hemoglobin ABG Oxyhemoglobin ABG Sodium ABG Potassium ABG Glucose Oxyhemoglobin Carboxyhemoglobin Sodium Potassium Chloride Carbon Dioxide BUN Creatinine Glucose POC Glucose 306 H 271 H 222 H Lactic Acid Calcium Phosphorus Magnesium TIBC Ferritin AST Lactate Dehydrogenase Total Creatine Kinase Troponin T C-Reactive Protein NT-Pro-B Natriuret Pep Albumin Triglycerides TSH Free T3 Index Arterial Blood Glucose Arterial Blood Ionized Calcium Urine WBC (Auto) Urine Creatinine Salicylates Acetaminophen Coronavirus (PCR) 02/19/21 02/19/21 02/19/21 04:00 04:25 04:25 WBC 13.6 H RBC 2.99 L Hgb 7.6 L Hct 22.8 L MCV 76 L MCH 25 L RDW 16.0 H Lymph % (Auto) Lymph # (Auto) Seg Neutrophils % PT INR APTT Fibrinogen D-Dimer Heparin Anti-Xa Level < 0.10 L ABG pH POC ABG pCO2 POC ABG pO2 59.8 L ABG pO2 ABG HCO3 ABG O2 Saturation ABG Base Excess ABG Hemoglobin 8.0 L ABG Oxyhemoglobin 88.6 L ABG Sodium ABG Potassium ABG Glucose 340 H Oxyhemoglobin Carboxyhemoglobin Sodium Potassium Chloride Carbon Dioxide BUN Creatinine Glucose POC Glucose Lactic Acid Calcium Phosphorus Magnesium TIBC Ferritin AST Lactate Dehydrogenase Total Creatine Kinase Troponin T C-Reactive Protein NT-Pro-B Natriuret Pep Albumin Triglycerides TSH Free T3 Index Arterial Blood Glucose 340 H Arterial Blood Ionized Calcium 3.8 L Urine WBC (Auto) Urine Creatinine Salicylates Acetaminophen Coronavirus (PCR) 02/19/21 02/19/21 02/19/21 04:25 04:53 08:05 WBC RBC Hgb Hct MCV MCH RDW Lymph % (Auto) Lymph # (Auto) Seg Neutrophils % PT INR APTT Fibrinogen D-Dimer Heparin Anti-Xa Level ABG pH POC ABG pCO2 POC ABG pO2 ABG pO2 ABG HCO3 ABG O2 Saturation ABG Base Excess ABG Hemoglobin ABG Oxyhemoglobin ABG Sodium ABG Potassium ABG Glucose Oxyhemoglobin Carboxyhemoglobin Sodium Potassium Chloride 97.1 L Carbon Dioxide BUN 71 H 72 H Creatinine 4.1 H 4.0 H Glucose 318 H 346 H POC Glucose 293 H Lactic Acid Calcium 8.1 L D 7.5 L Phosphorus 5.00 H Magnesium 2.40 H TIBC Ferritin AST Lactate Dehydrogenase Total Creatine Kinase Troponin T C-Reactive Protein NT-Pro-B Natriuret Pep Albumin 3.8 L Triglycerides TSH Free T3 Index Arterial Blood Glucose Arterial Blood Ionized Calcium Urine WBC (Auto) Urine Creatinine Salicylates Acetaminophen Coronavirus (PCR) 02/19/21 02/19/21 02/19/21 12:37 17:16 23:18 WBC RBC Hgb Hct MCV MCH RDW Lymph % (Auto) Lymph # (Auto) Seg Neutrophils % PT INR APTT Fibrinogen D-Dimer Heparin Anti-Xa Level ABG pH POC ABG pCO2 POC ABG pO2 ABG pO2 ABG HCO3 ABG O2 Saturation ABG Base Excess ABG Hemoglobin ABG Oxyhemoglobin ABG Sodium ABG Potassium ABG Glucose Oxyhemoglobin Carboxyhemoglobin Sodium Potassium Chloride Carbon Dioxide BUN Creatinine Glucose POC Glucose 306 H 254 H 244 H Lactic Acid Calcium Phosphorus Magnesium TIBC Ferritin AST Lactate Dehydrogenase Total Creatine Kinase Troponin T C-Reactive Protein NT-Pro-B Natriuret Pep Albumin Triglycerides TSH Free T3 Index Arterial Blood Glucose Arterial Blood Ionized Calcium Urine WBC (Auto) Urine Creatinine Salicylates Acetaminophen Coronavirus (PCR) 02/20/21 02/20/21 02/20/21 05:39 06:10 06:10 WBC RBC Hgb Hct MCV MCH RDW Lymph % (Auto) Lymph # (Auto) Seg Neutrophils % PT INR APTT Fibrinogen D-Dimer 6346.92 H Heparin Anti-Xa Level ABG pH POC ABG pCO2 POC ABG pO2 ABG pO2 ABG HCO3 ABG O2 Saturation ABG Base Excess ABG Hemoglobin ABG Oxyhemoglobin ABG Sodium ABG Potassium ABG Glucose Oxyhemoglobin Carboxyhemoglobin Sodium Potassium Chloride 96.7 L Carbon Dioxide BUN 59 H Creatinine 3.8 H Glucose 209 H POC Glucose 240 H Lactic Acid Calcium 7.7 L Phosphorus Magnesium TIBC Ferritin AST Lactate Dehydrogenase Total Creatine Kinase Troponin T C-Reactive Protein NT-Pro-B Natriuret Pep Albumin Triglycerides TSH Free T3 Index Arterial Blood Glucose Arterial Blood Ionized Calcium Urine WBC (Auto) Urine Creatinine Salicylates Acetaminophen Coronavirus (PCR) 02/20/21 02/20/21 02/20/21 06:10 06:10 06:10 WBC 17.8 H RBC 3.29 L Hgb 8.3 L Hct 25.7 L MCV 78 L MCH 25 L RDW 16.4 H Lymph % (Auto) Lymph # (Auto) Seg Neutrophils % PT INR APTT Fibrinogen D-Dimer Heparin Anti-Xa Level ABG pH POC ABG pCO2 POC ABG pO2 ABG pO2 ABG HCO3 ABG O2 Saturation ABG Base Excess ABG Hemoglobin ABG Oxyhemoglobin ABG Sodium ABG Potassium ABG Glucose Oxyhemoglobin Carboxyhemoglobin Sodium Potassium Chloride Carbon Dioxide BUN Creatinine Glucose POC Glucose Lactic Acid Calcium Phosphorus Magnesium TIBC Ferritin 1213.0 H AST Lactate Dehydrogenase 724 H Total Creatine Kinase Troponin T C-Reactive Protein 13.60 H NT-Pro-B Natriuret Pep Albumin Triglycerides TSH Free T3 Index Arterial Blood Glucose Arterial Blood Ionized Calcium Urine WBC (Auto) Urine Creatinine Salicylates Acetaminophen Coronavirus (PCR) 02/20/21 02/20/21 02/20/21 12:36 17:00 23:55 WBC RBC Hgb Hct MCV MCH RDW Lymph % (Auto) Lymph # (Auto) Seg Neutrophils % PT INR APTT Fibrinogen D-Dimer Heparin Anti-Xa Level ABG pH POC ABG pCO2 POC ABG pO2 ABG pO2 ABG HCO3 ABG O2 Saturation ABG Base Excess ABG Hemoglobin ABG Oxyhemoglobin ABG Sodium ABG Potassium ABG Glucose Oxyhemoglobin Carboxyhemoglobin Sodium Potassium Chloride Carbon Dioxide BUN Creatinine Glucose POC Glucose 260 H 302 H 310 H Lactic Acid Calcium Phosphorus Magnesium TIBC Ferritin AST Lactate Dehydrogenase Total Creatine Kinase Troponin T C-Reactive Protein NT-Pro-B Natriuret Pep Albumin Triglycerides TSH Free T3 Index Arterial Blood Glucose Arterial Blood Ionized Calcium Urine WBC (Auto) Urine Creatinine Salicylates Acetaminophen Coronavirus (PCR) 0802/21/21 02/21/21 04:40 04:40 05:07 WBC 27.0 H RBC 3.03 L Hgb 7.8 L Hct 24.3 L MCV MCH 26 L RDW 17.0 H Lymph % (Auto) Lymph # (Auto) Seg Neutrophils % PT INR APTT Fibrinogen D-Dimer Heparin Anti-Xa Level ABG pH POC ABG pCO2 POC ABG pO2 ABG pO2 ABG HCO3 ABG O2 Saturation ABG Base Excess ABG Hemoglobin ABG Oxyhemoglobin ABG Sodium ABG Potassium ABG Glucose Oxyhemoglobin Carboxyhemoglobin Sodium 134 L Potassium 6.6 H* D Chloride 93.7 L Carbon Dioxide 18 L BUN 104 H Creatinine 5.7 H Glucose 337 H POC Glucose 273 H Lactic Acid Calcium 7.2 L Phosphorus 10.60 H Magnesium 2.70 H TIBC Ferritin AST Lactate Dehydrogenase Total Creatine Kinase Troponin T C-Reactive Protein NT-Pro-B Natriuret Pep Albumin Triglycerides TSH Free T3 Index Arterial Blood Glucose Arterial Blood Ionized Calcium Urine WBC (Auto) Urine Creatinine Salicylates Acetaminophen Coronavirus (PCR) 02/21/21 02/21/21 02/21/21 05:55 10:41 12:42 WBC RBC Hgb Hct MCV MCH RDW Lymph % (Auto) Lymph # (Auto) Seg Neutrophils % PT INR APTT Fibrinogen D-Dimer Heparin Anti-Xa Level ABG pH 7.110 L* POC ABG pCO2 POC ABG pO2 ABG pO2 64.1 L ABG HCO3 16.8 L ABG O2 Saturation 80.4 L ABG Base Excess -12.0 L ABG Hemoglobin 8.1 L ABG Oxyhemoglobin ABG Sodium ABG Potassium ABG Glucose Oxyhemoglobin 77.7 L Carboxyhemoglobin Sodium Potassium Chloride Carbon Dioxide BUN Creatinine Glucose POC Glucose 221 H Lactic Acid Calcium Phosphorus Magnesium TIBC Ferritin AST Lactate Dehydrogenase Total Creatine Kinase Troponin T C-Reactive Protein NT-Pro-B Natriuret Pep Albumin Triglycerides 687 H TSH Free T3 Index Arterial Blood Glucose Arterial Blood Ionized Calcium Urine WBC (Auto) Urine Creatinine Salicylates Acetaminophen Coronavirus (PCR) Chest x-ray: image reviewed (resolved PTX but worsenin SQ emphysema) Allied health notes reviewed: nursing
--- NOTE | 2021-02-21 17:45 | Progress Note ---
Assessment and Plan Impression: * SONIA/ATN * Covid PNA * Acute hypoxic resp failure * Sepsis * Cardiac arrest * Hyperkalemia * Metabolic acidosis Plan: * daily lytes noted, improving with [employer]IGATING [employer]ER * added albumin for bp support, CRRT is not available, so continue convention hemodialysis PRN, cont vasopressors prn, * continue Hemodialysis prn * S/p 1.5 hour session today only, cut short due to hemodynamic instability * Assess daily for needs for additional sessions * strict i/os * avoid nephrotoxins * Keep MAP>65, vasopressors prn * no emergent indicaion for NAVIGATING [employer]ER today * sepsis protocol Subjective Date of service: 02/21/21 Principal diagnosis: AHRF; ARDS; Pneumonia; PUI COVID-19; OHS; SONIA; Hyperkalemia; AMS Interval history: Remains intubated. Objective - Exam Narrative Exam: Deferred to reduce transmission risk, primary team exam reviewed - Vital Signs Vital signs: Vital Signs - 12hr 02/21/21 02/21/21 02/21/21 05:45 06:00 06:15 Temperature Pulse Rate 98 H 98 H 97 H Respiratory 28 H 28 H 22 Rate Blood Pressure 90/57 96/54 91/45 O2 Sat by Pulse 82 L 82 L 81 L Oximetry O2 Sat by Pulse Oximetry [ Anterior Bilateral Throughout] 02/21/21 02/21/21 02/21/21 06:30 06:45 07:00 Temperature Pulse Rate 97 H 96 H 96 H Respiratory 28 H 28 H 28 H Rate Blood Pressure 102/53 105/54 104/55 O2 Sat by Pulse 81 L 81 L 81 L Oximetry O2 Sat by Pulse Oximetry [ Anterior Bilateral Throughout] 02/21/21 02/21/21 02/21/21 07:15 07:30 08:00 Temperature 99.3 F Pulse Rate 95 H 95 H 99 H Respiratory 28 H 28 H Rate Blood Pressure 106/58 103/50 118/59 O2 Sat by Pulse 81 L 81 L 81 L Oximetry O2 Sat by Pulse Oximetry [ Anterior Bilateral Throughout] 02/21/21 02/21/21 02/21/21 09:15 09:26 09:45 Temperature 98.5 F Pulse Rate 90 93 H 98 H Respiratory 28 H Rate Blood Pressure 115/59 103/41 85/52 O2 Sat by Pulse Oximetry O2 Sat by Pulse 81 L Oximetry [ Anterior Bilateral Throughout] 02/21/21 02/21/21 02/21/21 10:00 10:15 10:36 Temperature Pulse Rate 57 L 103 H 118 H Respiratory Rate Blood Pressure 78/54 122/61 48/12 O2 Sat by Pulse Oximetry O2 Sat by Pulse Oximetry [ Anterior Bilateral Throughout] 02/21/21 02/21/21 02/21/21 10:50 12:00 16:00 Temperature 98.3 F 98.8 F 99 F Pulse Rate 110 H Respiratory 20 Rate Blood Pressure 126/62 O2 Sat by Pulse Oximetry O2 Sat by Pulse 81 L Oximetry [ Anterior Bilateral Throughout] - Lab 02/21/21 04:40 02/21/21 04:40 Most recent lab results ABG pH 7.110 pH Units (7.350-7.450) L* 02/21/21 05:55 ABG pCO2 54.2 mm Hg 02/21/21 05:55 ABG pO2 64.1 mm Hg (80.0-90.0) L 02/21/21 05:55 ABG HCO3 16.8 mmol/L (20.0-26.0) L 02/21/21 05:55 ABG O2 Saturation 80.4 % (95.0-99.0) L 02/21/21 05:55 Calcium 7.2 mg/dL (8.4-10.2) L 02/21/21 04:40 Phosphorus 10.60 mg/dL (2.5-4.5) H 02/21/21 04:40 Magnesium 2.70 mg/dL (1.7-2.3) H 02/21/21 04:40 Urine Creatinine 80.0 mg/dL (0.1-20.0) H 02/14/21 18:45 Urine Sodium 33 mmol/L 02/14/21 18:45 Medications & Allergies - Medications Allergies/Adverse Reactions: Allergies Penicillins Adverse Reaction (Unknown, Verified 02/17/21 19:47) Unknown Home Medications: Home Medications Medication Instructions Recorded Confirmed Last Taken Type Insulin NPH Hum/Reg Insulin Hm See Protocol SQ DAILY 02/13/21 02/13/21 Unknown History [Novolin 70-30 100 Unit/ml Vial] metFORMIN [Glucophage] 500 mg PO TID 02/13/21 02/13/21 Unknown History Active Medications: Generic Name Dose Route Start Last Admin Trade Name Freq PRN Reason Stop Dose Admin Acetaminophen 650 mg 02/13/21 15:22 Acetaminophen 325 Mg Tab PO Q6H PRN Pain, Mild (1-3) Acetaminophen 650 mg 02/13/21 15:22 02/13/21 20:30 Acetaminophen 650 Mg Rect Supp [place] 650 mg Q6H PRN Administration Pain MILD(1-3)/Fever >100.5/ZACARIAS Albumin Human 25 gm 02/21/21 08:04 Albumin Human 25% (25 Gm/100 Ml) Inj IV AFTAB PRN Hypotension Albuterol 2.5 mg 02/13/21 15:22 Albuterol 2.5 Mg/3 Ml Nebu IH Q3H PRN Shortness Of Breath Lipase/Protease/Amylase 1 each 02/14/21 10:43 Lipase 10,500/Protease 25,000/Amylase 43,750 (Units) Dr Cap FEEDTUBE PRN PRN For Clogged Feeding Tube Ascorbic Acid 500 mg 02/13/21 22:00 02/20/21 21:20 Ascorbic Acid 500 Mg Tab PO 500 mg BID RUDY Administration Cholecalciferol 1,000 unit 02/13/21 16:00 02/21/21 09:55 Cholecalciferol (Vit D3) 1000 Unit (25 Mcg) Tab PO 1,000 unit QDAY RUDY Administration Dextrose 50 ml 02/14/21 11:15 Dextrose 50% In Water (25gm) 50 Ml Syringe IV Q30MIN PRN Hypoglycemia Protocol Fentanyl 50 mcg 02/13/21 16:05 Fentanyl 100 Mcg/2 Ml Inj IV Q10MIN PRN ANALGESIA Hydrophilic Ointment 1 applic 02/13/21 22:52 Lip Therapy Vaseline TP Q2HR PRN Dry Lips Fentanyl Citrate 2,000 mcg in 100 mls @ 5.55 mls/hr 02/13/21 17:00 02/21/21 14:01 Fentanyl Drip Premix IV 4 mcg/kg/hr TITR RUDY 22.2 mls/hr Administration Protocol 1 MCG/KG/HR Norepinephrine 4 mg in 250 mls @ 75 mls/hr 02/13/21 18:00 02/21/21 17:33 Levophed Drip 4 Mg/Ns 250 Ml IV 12 mcg/min TITR RUDY 45 mls/hr Administration Protocol 20 MCG/MIN Midazolam HCl 100 mg/ Sodium 100 mls @ 1 mls/hr 02/14/21 09:00 02/21/21 08:43 Chloride IV 4 mg/hr TITR RUDY 4 mls/hr Administration Protocol 1 MG/HR Dopamine HCl/Dextrose 800 mg in 250 mls @ 4.163 mls/hr 02/14/21 09:00 02/21/21 14:05 Intropin Drip 800 Mg/D5w 250 Ml IV 10 mcg/kg/min TITR RUDY 20.813 mls/hr Administration Protocol 2 MCG/KG/MIN Sodium Chloride 100 mls @ 999 mls/hr 02/21/21 08:03 Nacl 0.9% IV AFTAB PRN Hypotension Vasopressin 20 unit/ Sodium 101 mls @ 9.09 mls/hr 02/21/21 13:00 Chloride IV TITR RUDY Protocol 0.03 UNITS/MIN Insulin Glargine 30 units 02/21/21 22:00 Insulin Glargine 100 Units/Ml SUB-Q QHS RUDY Insulin Human Regular 0 units 02/14/21 12:00 02/21/21 14:03 Insulin Regular, Human 100 Units/1 Ml SUB-Q 3 units Q6H RUDY Administration Protocol Methylprednisolone Sodium Succinate 40 mg 02/18/21 06:00 02/21/21 14:03 Methylprednisolone Sod Succinate 40 Mg/1 Ml Inj IV 40 mg Q8H RUDY Administration Metoclopramide HCl 5 mg 02/21/21 13:00 02/21/21 14:01 Metoclopramide 10 Mg/2 Ml Inj IV 5 mg Q6HR RUDY Administration Midazolam HCl 2 mg 02/14/21 08:24 Midazolam 2 Mg/2 Ml Inj IV Q10MIN PRN Sedation Multi-Ingred Cream/Lotion/Oil/Oint 1 applic 02/13/21 16:05 Mineral Oil/Petrolatum, White Ophth Oint 3.5 Gm OU Q4H PRN Dry Eye(s) Pantoprazole Sodium 40 mg 02/18/21 22:00 02/21/21 09:55 Pantoprazole 40 Mg Inj IV 40 mg BID RUDY Administration Senna/Docusate Sodium 1 tab 02/13/21 22:00 02/21/21 09:55 Sennosides/Docusate Sodium 8.6/50 Mg Tab FEEDTUBE 1 tab BID RUDY Administration Simple Syrup 15 ml 02/14/21 10:43 Simple Syrup 15 Ml FEEDTUBE PRN PRN Hypoglycemia Simple Syrup 30 ml 02/14/21 10:43 Simple Syrup 15 Ml FEEDTUBE PRN PRN Hypoglycemia Sodium Bicarbonate 325 mg 02/14/21 10:43 Sodium Bicarbonate 325 Mg Tab FEEDTUBE PRN PRN For Clogged Feeding Tube Sodium Chloride 10 ml 02/13/21 22:00 02/21/21 09:55 Sodium Chloride 0.9% 10 Ml Flush Syringe IV 10 ml BID RUDY Administration Sodium Chloride 10 ml 02/13/21 15:22 Sodium Chloride 0.9% 10 Ml Flush Syringe IV PRN PRN LINE FLUSH Zinc Sulfate 220 mg 02/13/21 22:00 02/21/21 09:55 Zinc Sulfate 220 Mg Cap PO 220 mg BID RUDY Administration
[2021-02-21] MEDS ORDERED: SODIUM POLYSTYRENE 15 GM/60 ML ORAL LIQD PO SCH (18:00)
[2021-02-21] MEDS ORDERED: SODIUM BICARB 8.4% 50 MEQ/50 ML SYRINGE IV STA (20:15)
[2021-02-21] MEDS ORDERED: INSULIN GLARGINE 100 UNITS/ML SUB-Q SCH (22:00)
[2021-02-21] MEDS: NORepinephrine/NS 8 MG-250 ML 8 MG/250 ML INFUS..BTL IV SCH (22:45)
[2021-02-21] MEDS: VASOPRESSIN 20 UNIT in SODIUM CHLORIDE 0.9% 100 ML IV SCH (23:00)
[2021-02-22] MEDS: DOPamine/D5W 800 MG/250 ML 800 MG/250 ML BAG IV SCH ×2 (00:11→05:40)
[2021-02-22] MEDS: PHENYLEPHRINE 100 MG in SODIUM CHLORIDE 0.9% 90 ML IV SCH ×2 (01:05→04:06)
[2021-02-22] MEDS ORDERED: SODIUM BICARB 8.4% 50 MEQ/50 ML SYRINGE IV ONE ×3 (01:10→07:55)
[2021-02-22] MEDS ORDERED: SODIUM CHLORIDE 0.9% 1000 ML 1,000 ML ONE (01:16)
[2021-02-22] MEDS ORDERED: EPINEPHrine 1 MG/1 ML 8 MG in SODIUM CHLORIDE 0.9% 250ML 242 ML IV SCH (02:00)
[2021-02-22] MEDS: NORepinephrine/NS 8 MG-250 ML 8 MG/250 ML INFUS..BTL IV SCH ×2 (02:20→07:37)
[2021-02-22] MEDS: VASOPRESSIN 20 UNIT in SODIUM CHLORIDE 0.9% 100 ML IV SCH (05:06)
[2021-02-22] MEDS: methylPREDNISolone Sod Succinate 40 MG/1 ML INJ IV SCH ×2 (05:58→05:59)
[2021-02-22] MEDS: PANTOPRAZOLE 40 MG INJ IV SCH (05:59)
[2021-02-22] MEDS: ASCORBIC ACID 500 MG TAB PO SCH (05:59)
[2021-02-22] MEDS: INSULIN REGULAR, HUMAN 100 UNITS/1 ML SUB-Q SCH ×2 (05:59→06:00)
[2021-02-22] MEDS: ZINC SULFATE 220 MG CAP PO SCH (05:59)
[2021-02-22] MEDS: SENNOSIDES/DOCUSATE SODIUM 8.6/50 MG TAB FEEDTUBE SCH (05:59)
[2021-02-22] MEDS: METOCLOPRAMIDE 10 MG/2 ML INJ IV SCH ×2 (06:00)
[2021-02-22 06:35] LABS: Hematocrit 20.9 % (30.3-42.9); Hemoglobin 6.1 gm/dl (10.1-14.3); Mean Corpuscular HGB Conc 29 % (30-34); Mean Corpuscular Volume 94 fl (79-97); Platelet Count 109 K/mm3 (140-440); Red Blood Count 2.23 M/mm3 (3.65-5.03); Red Cell Distribution Width 19.9 % (13.2-15.2)
[2021-02-22 06:54] LABS: Albumin 2.6 g/dL (3.9-5); C-Reactive Protein 12.4 mg/dL (0.00-1.30); Calcium 6.9 mg/dL (8.4-10.2)
[2021-02-22 07:47] VITALS: BP 150/35
[2021-02-22] MEDS ORDERED: DEXTROSE 50% IN WATER (25GM) 50 ML SYRINGE IV ONE (07:55)
[2021-02-22] MEDS ORDERED: ATROPINE 0.1% (1 MG/10 ML) CARDIAC SYRINGE ONE ×2 (07:55→08:03)
[2021-02-22] MEDS ORDERED: CALCIUM CHLORIDE 1,000 MG/10 ML SYRINGE IV ONE ×2 (07:55→07:56)
[2021-02-22] MEDS ORDERED: EPINEPHrine 1 MG/10 ML SYRINGE ONE (07:55)
--- NOTE | 2021-02-22 08:28 | Event Note ---
Date: 02/22/21 Patient seen and examined, while getting reports from the nursing staff concerning low pH and high potassium the patient coded full ACLS was initiated. Patient received multiple doses of epi, atropine, bicarb, calcium carbonate, D50, and insulin. Despite all this the pulse was obtained sometimes but significantly went away. Family was called and notified prior to initiation of the code and also during the code and subsequently notified when the patient 8:13am
--- NOTE | 2021-02-22 08:37 | Death Summary ---
Summary - Providers Date of service: 02/22/21 Consults: 02/13/21 15:22 Consult to Physician [CONS] Routine Comment: Consulting Provider: VIRI LIU Physician Instructions: Reason For Exam: pui 02/13/21 16:05 Consult to Physician [CONS] Routine Comment: Consulting Provider: DALILA MCRAE Physician Instructions: Reason For Exam: SONIA 02/13/21 16:06 Consult to Dietitian/Nutrition [CONS] Routine Physician Instructions: Reason For Exam: Reason for Consult: Evaluate nutritional intake 02/13/21 16:09 Consult to Dietitian/Nutrition [CONS] Routine Physician Instructions: Reason For Exam: Reason for Consult: Write/Manage Tube Feeding 02/13/21 16:11 Consult to Physician [CONS] Routine Comment: Consulting Provider: ALIDA SMITH Physician Instructions: Reason For Exam: vent management 02/18/21 10:48 Consult to Physician [CONS] Routine Comment: called office/ amanda Consulting Provider: SEEMA ART Physician Instructions: Reason For Exam: GIB Attending: ASHLEE RAMACHANDRAN MD - summary Date of admission: 02/13/21 15:22 Date of : 02/22/21 Reason for admission: Shortness of breath with hypoxia Significant findings: 70 YO Female with Obesity Hypoventilation Syndrome, HTN, Hypothyroidism presents to ED for evaluation. Patient is intubated and on ventilatory support at the time my evaluation is unable to write history. Patient history provided by EMS staff, ED staff, as well as the patient family was made available by telephone for interview. As per daughter the patient was in her usual state of health around bedtime which was 2100 hrs. The patient was found down and unresponsive this morning. EMS was notified and upon arrival the patient was found to be in respiratory distress with a pulse oximetry of 50%. The patient was transported to [facility] for further care and evaluation of the aforementioned symptoms. The patient was seen and evaluated in the emergency department. All lab and imaging studies reviewed. The patient was found to have a pulse oximetry in the 60s which is consistent with acute hypoxemic respiratory failure. The patient was deemed unable to protect her airway and was intubated and placed on ventilatory support. The patient was found to have a blood pressure of 69/33. The patient was also found to have pneumonia on chest x-ray which was complicated by septic shock, metabolic acidosis, toxic metabolic encephalopathy, acute kidney injury. Patient admitted to ICU due to multiple organ system failure. Critical care care team consulted in ED. Patient initiated on sepsis protocol as well as coronavirus protocol. Patient found to have poor prognosis. Advanced care planning conducted in ED. No prior admission for review. No medication listed at time of admission for reconciliation. 02-13 Admitted through ER 02-14 proned; when supined this AM became hypoxic- took some time to recover 02/15 desaturated when supined this AM- now recovered 02/16: Saturation issues->increased sedation which resolved it today, Nephro to initiate HD in 24-48 hours, trialysis placed. 02/[address] for pneumo placed 02/18: Patient had a coughing fit and desaturated and zina to 30s overnight. 02/19: GI signed off todAY. Patient desaturated mid morning and peep was increased to 20 and slowly recovered to 70s. Dr Jefferson informed daughter of events who still wishes for her mother to be a full code. 02/20: remains with spo2 in the [address] Vasquez had a discussion face to face with kids and allowed window visit to discuss goals of care. 02-21 hyperK this AM; elevated triglyerides- prop to wean off; did not tolerate HD today due to hypotension 02/22: Patient coded this morning and despite multiple rounds of ACLS could not be resuscitated. Family notified. Time of 8:13 AM Exam General profound generalized swelling and periorbital edema, Morbidly obese Heart no palpable pulse or auscultated heart sounds Lungs no spontaneous respiration noted. ET tube to oral. Neuro: No response to stimuli Severe sepsis secondary to Covid pneumonia metabolic encephalopathy; Hyperkalemia Combined mixed gas disorder with severe respiratory acidosis hypotension due to sepsis/sedation; bradycardia in part due to hypoxia; hx HTN ARDS; acute hypoxic resp failure due to covid19 pna; hx hypoventilation syndrome GIB- resolved SONIA/ ATN anemia; coagulopathic with covid; remote GIB covid19 pna with resulting sepsis hx DM with hyperglycemia; morbid obesity; hx hypothyrodism
== END 2021-02-22 08:13 | DRG 870 ==
LOC: ED 12:46 → CC1 15:22
PROVIDERS: ADMIT Internal Medicine; ATTEND Internal Medicine
PROC: 02H633Z Insertion of Infusion Device into Right Atrium, Percutaneous Approach (ICD-10-PCS; principal; 2021-02-13)
PROC: B548ZZA Ultrasonography of Superior Vena Cava, Guidance (ICD-10-PCS; 2021-02-13)
PROC: 5A1955Z Respiratory Ventilation, Greater than 96 Consecutive Hours (ICD-10-PCS; 2021-02-13)
PROC: 0BH17EZ Insertion of Endotracheal Airway into Trachea, Via Natural or Artificial Opening (ICD-10-PCS; 2021-02-13)
PROC: 4A033R1 Measurement of Arterial Saturation, Peripheral, Percutaneous Approach (ICD-10-PCS; 2021-02-13)
PROC: 05HY33Z Insertion of Infusion Device into Upper Vein, Percutaneous Approach (ICD-10-PCS; 2021-02-16)
PROC: 5A12012 Performance of Cardiac Output, Single, Manual (ICD-10-PCS; 2021-02-16)
PROC: 0W9930Z Drainage of Right Pleural Cavity with Drainage Device, Percutaneous Approach (ICD-10-PCS; 2021-02-17)
PROC: 5A1D70Z Performance of Urinary Filtration, Intermittent, Less than 6 Hours Per Day (ICD-10-PCS; 2021-02-18)
PROC: 5A1D70Z Performance of Urinary Filtration, Intermittent, Less than 6 Hours Per Day (ICD-10-PCS; 2021-02-19)
PROC: 5A1D70Z Performance of Urinary Filtration, Intermittent, Less than 6 Hours Per Day (ICD-10-PCS; 2021-02-21)
DX: A41.89 Other specified sepsis (principal); U07.1 COVID-19; R65.21 Severe sepsis with septic shock; J96.01 Acute respiratory failure with hypoxia; N17.0 Acute kidney failure with tubular necrosis; G92 Toxic encephalopathy; J12.82 Pneumonia due to coronavirus disease 2019; E66.2 Morbid (severe) obesity with alveolar hypoventilation; J93.9 Pneumothorax, unspecified; K92.2 Gastrointestinal hemorrhage, unspecified; E87.5 Hyperkalemia; R74.01 Elevation of levels of liver transaminase levels; Z68.39 Body mass index [BMI] 39.0-39.9, adult; Z71.3 Dietary counseling and surveillance; R79.1 Abnormal coagulation profile; Z88.0 Allergy status to penicillin; Z79.4 Long term (current) use of insulin; I10 Essential (primary) hypertension; E03.9 Hypothyroidism, unspecified; Z83.3 Family history of diabetes mellitus; Z82.49 Family history of ischemic heart disease and other diseases of the circulatory system; I46.9 Cardiac arrest, cause unspecified; E11.65 Type 2 diabetes mellitus with hyperglycemia
CPT/HCPCS: 36415; 36600; 71045; 74018; 80048; 80053; 80061; 80074; 80076; 80307; 80320; 81001; 82140; 82271; 82550; 82570; 82728; 82803; 82805; 82947; 82962; 83550; 83615; 83690; 83735; 83880; 84100; 84145; 84300; 84443; 84478; 84481; 84484; 85014; 85018; 85025; 85027; 85049; 85379; 85384; 85520; 85610; 85730; 86140; 86850; 86900; 86901; 87040; 87070; 87086; 87205; 93005; 93306; 93970; 94002; 94003; 99292; G0378; C9113; G0480; J0171; J0456; J0461; J0696; J1100; J1265; J1644; J1815; J2250; J2370; J2543; J2704; J2765; J2920; J2930; J3010; J3370; J7030; J7040; J7050; P9047; U0003